=== PATIENT | female | born 1965 | race Caucasian/White ===

== ENCOUNTER 2023-03-02 14:41 | Outpatient (OUT) | payer OTHER, SELFPAY ==
--- NOTE | 2023-03-02 14:53 | XR_ITS ---
The [address] [address] Patient Name: ESSIE STEELE MRN: [id number] date: 1965 Sex: F Assigned Patient Location: [facility] Current Patient Location: [facility] Accession/Order Number: [id number] Exam Date: 03/02/2023 15:05 Report Date: 03/02/2023 15:29 At the request of: KAYY MADRID Procedure: XR chest 2V EXAMINATION: XR chest 2V HISTORY: other chest pain R07.89 COMPARISON: No relevant comparison available. TECHNIQUE: PA and lateral FINDINGS: LUNGS: No significant pulmonary parenchymal abnormalities. VASCULATURE: No increased pulmonary vasculature. PLEURA: No pneumothorax, effusion, or pleural thickening. CARDIAC: No cardiomegaly or cardiac silhouette abnormality. MEDIASTINUM: No visible mass or adenopathy. BONES: No fracture or visible bone lesion. OTHER: Negative. XR/XR chest 2V IMPRESSION: No acute cardiopulmonary process Electronically authenticated by: HELEN MCKEE Date: 03/02/2023 15:29
== END 2023-03-02 14:42 | disposition home or self-care (01) ==
PROVIDERS: PCP Family Medicine; Visit Provider Family Medicine
DX: R07.89 Other chest pain (principal)
CPT/HCPCS: 71046

== ENCOUNTER 2023-03-04 11:01 | Observation (INO) | payer OTHER, SELFPAY ==
[2023-03-04] VITALS (54 sets, daily range): BP systolic 81–146; BP diastolic 58–100; PULSE 73–183; RESP 12–28; TEMP 36.4–37; O2SAT 95–100; BMI 36.3; BMI 32.4
--- NOTE | 2023-03-04 11:19 | ED.SOB1 ---
HPI - SOB/Dyspnea General Chief Complaint: Shortness of Breath/Dyspnea Stated Complaint: SHORTNESS OF BREATH/CHEST PAIN Time Seen by Provider: 03/04/23 11:19 Source: patient Mode of arrival: walk-in Limitations: no limitations History of Present Illness HPI Narrative: this patient's here complaining of shortness of breath. She's not been feeling well for over two weeks. She had an outpatient chest x-ray recently that was normal. She was not seen by the physician at that moment. She said that her breathing is really got bad last two or three nights. She is not running a fever at home that she is aware of but she thought that she had some type of respiratory infection. She has no previous history of irregular heartbeat, heart murmurs coronary artery disease stroke deep vein thrombosis or phlebitis. She was seen immediately on arrival here was noted to be in a rapid atrial fibrillation. She was seen shortly thereafter with laboratory testing and medications ordered by myself. Related Data Allergies Allergy/AdvReac Type Severity Reaction Status Date / Time codeine Allergy Hives Verified 03/04/23 11:03 Exam Narrative Exam Narrative: diaphoretic tachycardic moderately dyspneic. Pulse ox ninety-eight percent. She is in atrial flutter with RVR. She is awake alert cognition and mentation are normal. Skin mildly diaphoretic and clammy. She does have strong pulses. Heart rate and rhythm rhythm are extremely irregular. I do not hear any murmurs. Lungs are completely clear. Extremities show no evidence of phlebitis deep vein thrombosis or edema. Constitutional Vital Signs, click to edit/add: Last Vital Signs Temp 98.6 F 03/04/23 11:04 Pulse 120 H 03/04/23 13:01 Resp 27 H 03/04/23 13:01 BP 99/66 03/04/23 13:01 Pulse Ox 100 03/04/23 13:01 O2 Del Method Room Air 03/04/23 11:04 Course Vital Signs Vital signs: Vital Signs Temperature 98.6 F 03/04/23 11:04 Pulse Rate 118 H 03/04/23 11:04 Respiratory Rate 22 03/04/23 11:04 Blood Pressure 124/100 H 03/04/23 11:04 Pulse Oximetry 98 03/04/23 11:04 Oxygen Delivery Method Room Air 03/04/23 11:04 Temperature 98.6 F 03/04/23 11:04 Pulse Rate 120 H 03/04/23 13:01 Respiratory Rate 27 H 03/04/23 13:01 Blood Pressure 99/66 03/04/23 13:01 Pulse Oximetry 100 03/04/23 13:01 Oxygen Delivery Method Room Air 03/04/23 11:04 MDM - SOB/Dyspnea MDM Narrative Medical decision making narrative: this patient was seen for exacerbation of severe dyspnea. She was found to be in new onset atrial fibrillation with rapid ventricular response. In the differential diagnosis we would like to exclude pulmonary embolism therefore CTA was done. Viral studies have been done. Her chest x-ray did not show any gross abnormalities. She had a wonderful response to Cardizem bolus and his slowed down to a rate of approximately 100-105. Case is discussed with the on-call Dr. Ramirez. Primary care doctor and he will admit her. She will go to ICU. Her oximetry and respirations status is improved and stable. Lab Data Labs: Lab Results 03/04/23 03/04/23 Range/Units 11:15 12:20 WBC 16.8 H (4.0-11.0) 10^3/uL RBC 6.48 H (4.20-5.40) 10^6/uL Hgb 16.2 H (12.0-16.0) g/dL Hct 50.5 H (36.0-48.0) % MCV 77.9 L (81.0-99.0) fL MCH 25.0 L (26.7-34.0) pg MCHC 32.1 (29.9-35.2) g/dL RDW 15.6 H (11.0-15.0) % Plt Count 327 (150-450) 10^3/uL MPV 10.3 (9.5-13.5) fL Seg Neuts % (Manual) 51.0 Band Neutrophils % 2.0 (0-5) % Lymphocytes % (Manual) 37.0 (20.5-60.0) % Atypical Lymphs % (Man) 5.0 % Monocytes % (Manual) 4.0 (1.7-12.0) % Eosinophils % (Manual) 1.0 (0.9-7.0) % Basophils % (Manual) 0.0 L (0.2-2.0) % Neutrophils # (Manual) 8.56 H (1.4-6.5) 10^3/uL Band Neutrophils # 0.3 (0.0-0.3) 10^3/uL Lymphocytes # (Manual) 6.21 H (1.20-3.80) 10^3/uL Abs Atypical Lymphs Man 0.84 Monocytes # (Manual) 0.67 (0.30-0.80) 10^3/uL Eosinophils # (Manual) 0.16 (0.00-0.70) 10^3/uL Basophils # (Manual) 0.00 (0.00-0.10) 10^3/uL PT 10.0 (9.0-11.6) sec INR 0.94 Sodium 137 (136-145) mmol/L Potassium 3.5 (3.5-5.1) mmol/L Chloride 97 L (98-107) mmol/L Carbon Dioxide 27.7 (21.0-32.0) mmol/L Anion Gap 15.8 BUN 13.0 (7.0-18.0) mg/dL Creatinine 0.94 (0.55-1.02) mg/dL Est GFR ( Amer) >60 (>=60) Est GFR (Non-Af Amer) >60 (>=60) BUN/Creatinine Ratio 13.8 Glucose 140 H (74-106) mg/dL Calcium 8.2 L (8.5-10.1) mg/dL Total Bilirubin 0.5 (0.2-1.0) mg/dL AST 24 (15-37) U/L ALT 64 H (14-59) U/L Alkaline Phosphatase 100 (46-116) U/L Troponin I High Sens 14.7 (4.0-51.3) pg/mL NT-Pro-B Natriuret Pep 515.0 (<=900.0) pg/mL Total Protein 7.7 (6.4-8.2) g/dL Albumin 3.1 L (3.4-5.0) g/dL Globulin 4.6 g/dL Albumin/Globulin Ratio 0.7 Influenza Type A Ag Negative Influenza Type B Ag Negative Discharge Plan Discharge Chief Complaint: Shortness of Breath/Dyspnea Clinical Impression: Atrial fibrillation, new onset Patient Disposition: Admitted as Observation Time of Disposition Decision: 13:19 Referrals: Brett Paniagua MD [Primary Care Provider] - 1 week
--- NOTE | 2023-03-04 11:20 | ECG_ITS ---
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
--- NOTE | 2023-03-04 11:20 | XR_ITS ---
The [address] [address] Patient Name: ESSIE STEELE MRN: [id number] date: 1965 Sex: F Assigned Patient Location: ER Current Patient Location: ER Accession/Order Number: [id number] Exam Date: 03/04/2023 11:50 Report Date: 03/04/2023 12:02 At the request of: AUBREY JAIMES Procedure: XR chest 1V EXAMINATION: XR chest 1V, 03/04/2023 11:50 AM EST HISTORY: dyspnea COMPARISON: 03/02/2023 TECHNIQUE: AP portable view of the chest performed. FINDINGS: Medical devices: None. Cardiomediastinal silhouette is within normal limits. The lungs are clear. No large pleural effusion, or pneumothorax. XR/XR chest 1V IMPRESSION: 1. No acute cardiopulmonary abnormality. Electronically authenticated by: MARCIO WEISS Date: 03/04/2023 12:02
--- OUTSIDE RECORDS SUMMARY | 2023-03-04 11:31 | XMS_ITS | CCD ---
Author Name Unknown Address [address] [place] [address] Organization [facility] Care Team Providers Care Manufacturing Maintenance Mechanic Name Role Phone ADA LUNA Referring Unavailable KAYY PANIAGUA Primary Care Unavailable Nader Paniagua Primary Care Provider René Holley Attending Provider René Holley Unavailable MERCY ., DR SULTANA Admitting Unavailable HOY ., DR SULTANA Attending Unavailable HOY ., DR SULTANA Primary Care Unavailable HOY ., DR SULTANA Consulting Unavailable HOY ., DR SULTANA Admitting Unavailable HOY ., DR SULTANA Attending Unavailable HOY ., DR SULTANA Primary Care Unavailable HOY ., DR SULTANA Consulting Unavailable HOY ., DR SULTANA Admitting Unavailable HOY ., DR SULTANA Attending Unavailable HOY ., DR SULTANA Primary Care Unavailable HOY ., DR SULTANA Consulting Unavailable STRAWSER, DWIGHT Consulting Unavailable Philippe Wise Unavailable Allergies Allergy Classification Reported Allergen(s) Allergy Type Date of Onset Reaction(s) Facility (2 sources) Codeine Drug Allergy Unknown [facility] Other (2 sources) Meperidine Drug Allergy Unknown [facility] Other (1 source) Codeine Drug Allergy [facility] (1 source) Meperidine Drug Allergy [facility] Medications Current Medications Medication Drug Class(es) Dates Sig (Normalized) Sig (Original) Acetaminophen (2 sources) Tylenol PRN Acti ve Tylenol Active ciprofloxacin 500 mg oral tablet (1 source) Quinolone Antimicrobial Start: 08-29-2021 take 1 tablet by mouth every twelve hours Cipro 500 MG 1 tablet Orally every 12 hrs for 7 days Aug, Active 24 hr desvenlafaxine succinate 25 mg extended release oral tablet (3 sources) Serotonin and Norepinephrine Reuptake Inhibitor Start: 11-02-2018 take 1 tablet by mouth once daily, then take 1 tablet by mouth every twenty-four hours Desvenlafaxine Succinate (Pristiq) 25 mg Tablet Extended Release 24 Hr Active 25 MG PO Daily November 02, 2018 2:15pm Desvenlafaxine S uccinate ER Active dicyclomine hydrochloride 20 mg oral tablet (2 sources) Anticholinergic Start: 10-07-2022 take 1 tablet by mouth every eight hours Dicyclomine HCl 20 MG 1 tablet Orally Three times a day for 30 days Sep, Active take 1 tablet by mouth twice sharon ly Dicyclomine HCl 20 MG TAKE 1 TABLET BY MOUTH TWICE A DAY Active Excedrin Extra Strength (2 sources) Excedrin Extra S trength PRN Active Excedrin Extra S trength Active fluticasone propionate 0.05 mg/actuat metered dose nasal spray (1 source) Corticosteroid Start: 11-02-2018 Fluticasone Pr opionate (Flonase Allergy Relief) 50 mcg/actuation [place],Suspension Active 1 SPRAY INTRANASAL Daily November 02, 2018 2:15pm loratadine 10 mg oral tablet (3 sources) Start: 11-02-2018 take 1 tablet by mouth once daily Loratadine (Claritin) 10 mg Tablet Active 10 MG PO Daily November 02, 2018 2:15pm Claritin Active 24 hr mesalamine 375 mg extended release oral capsule (1 source) Aminosalicylate Start: 11-03-2018 take 1 capsule by mouth once daily Mesalamine (Apriso) 0.375 gram capsule,extended release 24hr Active 1.5 GM PO Daily 120 November 03, 2018 9:14am pantoprazole 40 mg delayed release oral tablet (2 sources) Proton Pump Inhibitor Start: 05-31-2020 take 1 tablet by mouth every twelve hours Pantoprazole Sodium 40 MG 1 tablet Orally twice a day for 30 days May, Active predniSONE (1 source) predniSONE Activ e topiramate 100 mg oral tablet (2 sources) Start: 11-02-2018 take 1 tablet by mouth once daily Topiramate Active 1 TAB PO Daily November 02, 2018 2:15pm Topiramate Activ e Completed/Discontinued Medications Medication Drug Class(es) Dates Sig (Normalized) Sig (Original) sucralfate 100 mg/ml oral suspension (2 sources) Aluminum Complex take 10 mL by mouth four times daily Carafate 1 GM/10ML 10 ml on an empty stomach Orally qid Not-Taking Problems Active Problems Problem Classification Problem Date Documented Da te Episodic/Chronic Abdominal pain (7 sources) Abdominal pain; Translations: [Unspecified abdominal pain] Onset: 2 Episodic Deficiency and other anemia (1 source) Anemia, unspecified; Translations: [ANEMIA UNSPECIFIED] Onset: 3 Episodic Diabetes mellitus without complication (1 source) Other abnormal glucose; Translations: [OTHER ABNORMAL GLUCOSE] Onset: 3 Episodic Esophageal disorders (8 sources) Gastroesophageal reflux disease; Translations: [Gastro-esophageal reflux disease without esophagitis] Onset: 2 Chronic Essential hypertension (4 sources) Essential (primary) hypertension; Translations: [ESSENTIAL PRIMARY HYPERTENSION] Onset: 3 Chronic Gastritis and duodenitis (2 sources) Atrophic gastritis; Translations: [Unspecified chronic gastritis without bleeding] Chronic Gastrointestinal hemorrhage (2 sources) Rectal hemorrhage; Translations: [Hemorrhage of anus and rectum] Episodic Hemorrhoids (2 sources) Hemorrhoids; Translations: [Unspecified hemorrhoids] Episodic Noninfectious gastroenteritis (2 sources) Ileitis; Translations: [Noninfective gastroenteritis and colitis, unspecified] Episodic Nutritional deficiencies (1 source) Vitamin D deficiency, unspecified; Translations: [VITAMIN D DEFICIENCY UNSPECIFIED] Onset: 3 Chronic Other gastrointestinal disorders (1 source) Irritable bowel syndrome with diarrhea; Translations: [Irritable bowel syndrome with diarrhea] Chronic Other gastrointestinal disorders (1 source) Irritable bowel syndrome with diarrhea Chronic Other gastrointestinal disorders (2 sources) Abnormal feces; Translations: [Other fecal abnormalities] Episodic Other gastrointestinal disorders (2 sources) Diarrhea; Translations: [Diarrhea, unspecified] Episodic Other nutritional; endocrine; and metabolic disorders (1 source) Overweight; Translations: [Overweight] Onset: 9 Chronic Regional enteritis and ulcerative colitis (6 sources) Crohn's disease of terminal ileum; Translations: [Crohn's disease of small intestine without complications] Onset: 2 Resolved: 2 Chronic Past or Other Problems Problem Classification Problem Date Documented Da te Episodic/Chronic Intestinal infection (1 source) Viral intestinal infection, unspecified Onset: 08-29-2021 Resolved: 08-29-2021 Episodic Other nutritional; endocrine; and metabolic disorders (1 source) Abnormal weight loss; Translations: [ABNORMAL WEIGHT LOSS] Onset: 08-23-2021 Episodic Results Test Name Value Interpretation Reference Range Facility INSULINon 06-13-2022 Insulin 8.5 uIU/mL Normal 2.6-24.9 [facility] Comment on above: Performed By: #### I NSULIN #### [facility] [address] [place] [address] Dr. Delonte Sparrow AMMONIAon 06-12-2022 Ammonia (P) [Moles/Vol] 33 umol/L Critically high 11-32 [facility] Comment on above: Performed By: #### A MM #### [facility] [address] [place] [address] Dr. Delonte Sparrow AMYLASEon 06-12-2022 Amylase [Catalytic activity/Vol] 47 U/L Normal 25-115 [facility] Comment on above: Performed By: #### L IPA, CMP, NONI #### [facility] [address] [place] [address] Dr. Delonte Sparrow CBC AUTO DIFFon 06-12-2022 BASO # 0.0 103/ul Normal 0.0-0.1 [facility] Comment on above: Performed By: #### C BC #### [facility] [address] [place] [address] Dr. Delonte Sparrow Basophils/100 WBC (Bld) 0.7 % Normal 0.2-2.0 [facility] Comment on above: Performed By: #### C BC #### [facility] [address] [place] [address] Dr. Delonte Sparrow EO # 0.3 103/ul Normal 0.0-0.7 [facility] Comment on above: Performed By: #### C BC #### [facility] [address] [place] [address] Dr. Delonte Sparrow Eosinophils/100 WBC (Bld) 4.3 % Normal 0.9-7.0 [facility] Comment on above: Performed By: #### C BC #### [facility] [address] [place] [address] Dr. Delonte Sparrow Erythrocyte distribution width (RBC) [Ratio] 15.0 % Normal 11.0-15.0 [facility] Comment on above: Performed By: #### C BC #### [facility] [address] [place] [address] Dr. Delonte Sparrow Hematocrit (Bld) [Volume fraction] 38.8 % Normal 36.0-48.0 [facility] Comment on above: Performed By: #### C BC #### [facility] [address] [place] [address] Dr. Delonte Sparrow Hemoglobin (Bld) [Mass/Vol] 12.0 g/dL Normal 12.0-16.0 [facility] Comment on above: Performed By: #### C BC #### [facility] [address] [place] [address] Dr. Delonte Sparrow IG # 0.03 10e3/ul Normal 0.00-0.03 [facility] Comment on above: Performed By: #### C BC #### [facility] [address] [place] [address] Dr. Delonte Sparrow IG % 0.5 % Normal 0.0-0.5 [facility] Comment on above: Performed By: #### C BC #### [facility] [address] [place] [address] Dr. Delonte Sparrow LYMPH # 1.7 103/ul Normal 1.2-3.8 [facility] Comment on above: Performed By: #### C BC #### [facility] [address] [place] [address] Dr. Delonte Sparrow Lymphocytes/100 WBC (Bld) 27.3 % Normal 20.5-60.0 [facility] Comment on above: Performed By: #### C BC #### [facility] [address] [place] [address] Dr. Delonte Sparrow MANUAL DIFF REQ NO Normal [facility] Comment on above: Performed By: #### C BC #### [facility] [address] [place] [address] Dr. Delonte Sparrwo MCH (RBC) [Entitic mass] 24.1 pg Critically low 26.7-34.0 [facility] Comment on above: Performed By: #### C BC #### [facility] [address] [place] [address] Dr. Delonte Sparrow MCHC (RBC) [Mass/Vol] 30.9 g/dL Normal 29.9-35.2 [facility] Comment on above: Performed By: #### C BC #### [facility] [address] [place] [address] Dr. Delonte Sparrow MCV (RBC) [Entitic vol] 78.1 fL Critically low 81.0-99.0 [facility] Comment on above: Performed By: #### C BC #### [facility] [address] [place] [address] Dr. Delonte Sparrow MONO # 0.4 103/ul Normal 0.3-0.8 [facility] Comment on above: Performed By: #### C BC #### [facility] [address] [place] [address] Dr. Delonte Sparrow Monocytes/100 WBC (Bld) 6.4 % Normal 1.7-12.0 [facility] Comment on above: Performed By: #### C BC #### [facility] [address] [place] [address] Dr. Delonte Sparrow NEUT # 3.7 103/ul Normal 1.4-6.5 [facility] Comment on above: Performed By: #### C BC #### [facility] [address] [place] [address] Dr. Delonte Sparrow Neutrophils/100 WBC (Bld) 60.8 % Normal 43.0-75.0 [facility] Comment on above: Performed By: #### C BC #### [facility] [address] [place] [address] Dr. Delonte Sparrow Platelet mean volume (Bld) [Entitic vol] 9.7 fL Normal 9.5-13.5 [facility] Comment on above: Performed By: #### C BC #### [facility] [address] [address] [address] Delonte Sparrow PLT 263 103/ul Normal 150-450 [facility] Comment on above: Performed By: #### C BC #### [facility] [address] [address] [address] Delonte Sparrow RBC 4.97 106/ul Normal 4.20-5.40 [facility] Comment on above: Performed By: #### C BC #### [facility] [address] [address] [address] Delonte Sparrow WBC 6.1 103/ul Normal 4.0-11.0 [facility] Comment on above: Performed By: #### C BC #### [facility] [address] [place] [address] Dr. Delonte Sparrow FREE THYROXINE INDEX T7on FTI 2.61 Normal 1.30-4.50 [facility] Comment on above: Performed By: #### L IPA, CMP, NONI #### [facility] [address] [place] [address] Dr. Delonte Sparrow T3U 33.0 % Normal 30.0-39.0 [facility] Comment on above: Performed By: #### L IPA, CMP, NONI #### [facility] [address] [place] [address] Dr. Delonte Sparrow T4 [Mass/Vol] 7.90 ug/dL Normal 4.80-13.90 [facility] Comment on above: Performed By: #### L IPA, CMP, NONI #### [facility] [address] [place] [address] Dr. Delonte Sparrow GLYCOHEMOGLOBIN A1Con 2022 ADA RECOMMENDATION SEE BELOW Normal [facility] Comment on above: Result Comment: ADA RECOMMENDED LIMIT 4.0 - 6.0 ADA THERAPEUTIC TARGET < 7.0 ACTION SUGGESTED > 7.0 Performed By: #### A 1C #### [facility] [address] [place] [address] Dr. Delonte Sparrow Glucose [Mass/Vol] 105 mg/dL Normal [facility] Comment on above: Performed By: #### A 1C #### [facility] [address] [place] [address] Dr. Delonte Sparrow HbA1c (Bld) [Mass fraction] 5.3 % Normal 4.5-6.2 [facility] Comment on above: Performed By: #### A 1C #### [facility] [address] [place] [address] Dr. Delonte Sparrow IRONon 06-12-2022 Iron [Mass/Vol] 35.0 ug/dL Critically low 50.0-170.0 [facility] Comment on above: Performed By: #### L ADELE OCONNELL, NONI #### [facility] [address] [place] [address] Dr. Delonte Sparrow LIPASEon 06-12-2022 Lipase [Catalytic activity/Vol] 130.0 U/L Normal 73.0-393.0 [facility] Comment on above: Performed By: #### L KOURTNEY CMP, NONI #### [facility] [address] [place] [address] Dr. Delonte Sparrow TSHon 06-12-2022 TSH 1.741 uIU/mL Normal 0.358-3.740 [facility] Comment on above: Performed By: #### L IPA CMP, NONI #### [facility] [address] [place] [address] Dr. Delonte Sparrow VITAMIN D 25 OHon 06-12-2022 VIT D 25-OH 20.9 ng/mL Normal [facility] Comment on above: Performed By: #### I AMANDA VITAD #### [facility] [address] [place] [address] Dr. Delonte Sparrow VIT D RANGES SEE BELOW Normal [facility] Comment on above: Result Comment: <20 ng/mL Vit D deficient 20 - <30 ng/mL Vit D insufficient 30 - 100 ng/mL Vit D sufficient >100 ng/mL Potential Toxicity Performed By: #### I AMANDA VITAD #### [facility] [address] [place] [address] Dr. Delonte Sparrow AMYLASEon 08-21-2021 Amylase [Catalytic activity/Vol] 26 U/L Normal 25-115 [facility] Comment on above: Performed By: #### L IPA, CMP, NONI #### [facility] [address] [place] [address] Dr. Delonte Sparrow CBC W MANUAL DIFFon 08-22-19 22 ATYPICAL LYMPH # Normal [facility] Comment on above: Performed By: #### C BCMAN #### [facility] [address] [place] [address] Dr. Delonte Sparrow ATYPICAL LYMPH % Normal [facility] Comment on above: Performed By: #### C BCMAN #### [facility] [address] [place] [address] Dr. Delonte Sparrow BAND # Normal 0.0-0.3 [facility] Comment on above: Performed By: #### C BRITT #### [facility] [address] [place] [address] Dr. Delonte Sparrow BAND % Normal 0-5 [facility] Comment on above: Performed By: #### C BCSEA #### [facility] [address] [place] [address] Dr. Delonte Sparrow BASOM # 0.00 103/ul Normal 0.00-0.10 [facility] Comment on above: Performed By: #### C BCSEA #### [facility] [address] [place] [address] Dr. Delonte Sparrow BASOM % 0.0 % Critically low 0.2-2.0 [facility] Comment on above: Performed By: #### C BCSEA #### [facility] [address] [place] [address] Dr. Delonte Sparrow BLAST # Normal [facility] Comment on above: Performed By: #### C BCMAN #### [facility] [address] [place] [address] Dr. Delonte Sparrow BLAST % Normal [facility] Comment on above: Performed By: #### C BCSEA #### [facility] [address] [place] [address] Dr. Delonte Sparrow CORRECTED WBC Normal 4.0-11.0 [facility] Comment on above: Performed By: #### C BCMAN #### [facility] [address] [address] [address] Delonte Sparrow EOS # 15.45 103/ul Critically high 0.00-0.70 [facility] Comment on above: Performed By: #### C BCSEA #### [facility] [address] [address] [address] Delonte Sparrow EOS% 57.0 % Critically high 0.9-7.[address] [facility] Comment on above: Performed By: #### C BCSEA #### [facility] [address] [address] [address] Delonte Sparrow HCT 45.1 % Normal 36.0-48.0 [facility] Comment on above: Performed By: #### C BCSEA #### [facility] [address] [address] [address] Delonte Sparrow HGB 13.9 g/dl Normal 12.0-16.0 [facility] Comment on above: Performed By: #### C BRITT #### [facility] [address] [address] [address] Delonte Sparrow LYMPHM # 2.98 103/ul Normal 1.20-3.80 [facility] Comment on above: Performed By: #### C BRITT #### [facility] [address] [address] [address] Delonte Sparrow LYMPHM% 11.0 % Critically low 20.5-60.0 [facility] Comment on above: Performed By: #### C BCSEA #### [facility] [address] [address] [address] Delonte Sparrow MCH 23.3 pg Critically low 26.7-34.0 [facility] Comment on above: Performed By: #### C BCSEA #### [facility] [address] [address] [address] Delonte Sparrow MCHC 30.8 g/dl Normal 29.9-35.2 [facility] Comment on above: Performed By: #### C BRITT #### [facility] [address] [address] [address] Delonte Sparrow MCV 75.5 fL Critically low 81.0-99.0 [facility] Comment on above: Performed By: #### C BRITT #### [facility] [address] [place] [address] Dr. Delonte Sparrow METAMYELOCYTE # Normal [facility] Comment on above: Performed By: #### C BRITT #### [facility] [address] [place] [address] Dr. Delonte Sparrow METAMYELOCYTE % Normal [facility] Comment on above: Performed By: #### C BRITT #### [facility] [address] [place] [address] Dr. Delonte Sparrow MONOM# 1.63 103/ul Critically high 0.30-0.80 [facility] Comment on above: Performed By: #### C BRITT #### [facility] [address] [place] [address] Dr. Delonte Sparrow MONOM% 6.0 % Normal 1.7-12.0 [facility] Comment on above: Performed By: #### C BRITT #### [facility] [address] [place] [address] Dr. Delonte Sparrow MPV 9.9 fL Normal 9.5-13.5 [facility] Comment on above: Performed By: #### C BRITT #### [facility] [address] [place] [address] Dr. Delonte Sparrow MYELOCYTE # Normal [facility] Comment on above: Performed By: #### C BRITT #### [facility] [address] [place] [address] Dr. Delonte Sparrow MYELOCYTE % Normal [facility] Comment on above: Performed By: #### C BRITT #### [facility] [address] [place] [address] Dr. Delonte Sparrow NRBC Normal [facility] Comment on above: Performed By: #### C BRITT #### [facility] [address] [place] [address] Dr. Delonte Sparrow PLT 343 103/ul Normal 150-450 [facility] Comment on above: Performed By: #### Pravin DE LA TORRE #### [facility] [address] [address] [address] Delonte Sparrow RBC 5.97 106/ul Critically high 4.20-5.40 [facility] Comment on above: Performed By: #### Pravin DE LA TORRE #### [facility] [address] [address] [address] Delonte Sparrow RDW 16.9 % Critically high 11.0-15.[address] [facility] Comment on above: Performed By: #### Pravin DE LA TORRE #### [facility] [address] [place] [address] Dr. Delonte Sparrow SEG # 7.05 103/ul Critically high 1.40-6.50 [facility] Comment on above: Performed By: #### Pravin DE LA TORRE #### [facility] [address] [place] [address] Dr. Delonte Sparrow SEG % 26.0 % Critically low 43.0-75.0 [facility] Comment on above: Performed By: #### Pravin DE LA TORRE #### [facility] [address] [place] [address] Dr. Delonte Sparrow WBC 27.1 103/ul Critically high 4.0-11.0 [facility] Comment on above: Performed By: #### Pravin DE LA TORRE #### [facility] [address] [place] [address] ABD/PELV W CONon 08-22-[address] ABD/PELV W CON CT ABDOMEN AND PELVIS WITH CONTRAST: INDICATION: Weight loss finding. Upper abdominal pain, pelvic pain. History of Crohn's disease. COMPARISON: 05/02/2020. TECHNIQUE:Multiple thin section transaxial slices were acquired through the abdomen and pelvis with intravenous contrast. Coronal and sagittal reconstructed images were reviewed. Oral contrastwas administered. FINDINGS: LOWER CHEST: There are small bilateral pleural effusions. There is atelectasis in the right lower lobe and lingula. LIVER: The liver is unremarkable. GALLBLADDER AND BILIARY SYSTEM: No obvious ductal dilation. No calcified stones. SPLEEN: The spleen is unremarkable. PANCREAS: The pancreas is unremarkable. ADRENAL GLANDS: The adrenal glands are unremarkable. KIDNEYS AND URETERS: There is no hydronephrosis of the kidneys.No obstructing urologic calcifications are present. There are bilateral renal cysts measuring up to 1.1 cm. VASCULATURE: There is no aneurysm of the abdominal aorta. PERITONEUM/RETROPERI TONEUM: There is mild to moderate ascites. No free intraperitoneal air is appreciated. No rim-enhancing fluid collections are present to suggest abscess. LYMPH NODES: No suspicious lymphadenopathy. GASTROINTESTINAL TRACT: There is irregular wall thickening of multiple small bowel loops throughout the abdomen and pelvis involving both jejunum and ileal bowel loops. Wall thickening and inflammatory changes are also present in the cecum. There is diffuse circumferential inflammation of the distal stomach including the antrum and pylorus.The colonic bowel loops do not demonstrate significant wall thickening. While there is mild dilation of the small bowel loops, this could be due to ileus from the underlying inflammatory changes.There is fluid surrounding the appendix which is felt to be translational from edema elsewhere. The appendix is normal in size. BLADDER: There is perivesicular fat stranding of the urinary bladder wall concerning for cystitis. REPRODUCTIVE SYSTEM: The uterus is absent. BODY WALL: There is a small fat-containing umbilical hernia. There is a well-circumscribed round fluid collection in the subcutaneous fat to the right of the midline of the posterior torso measuring 2.2 cm. Imaging features are most typical of a sebaceous cyst. BONES: Degenerative disc disease is present at the lumbosacral junction. IMPRESSION: 1. Extensive inflammatory changes associated with the small bowel loops, cecum and distal stomach consistent with severe enteritis/gastritis likely secondary to the patient's reported clinical history of Crohn's disease. 2. Mild to moderate ascites and small bilateral pleural effusions. 3. Inflammatory changes are associated with the urinary bladder which may represent cystitis. Electronically authenticated by: DWIGHT TOBAR Date: 2021-08-21 16:48 Normal [facility] LIPASEon 08-21-2021 Lipase [Catalytic activity/Vol] 58.0 U/L Critically low 73.0-393.0 [facility] Comment on above: Performed By: #### L IPA, CMP, NONI #### [facility] [address] [place] [address] Dr. Delonte Sparrow PROF 14(COMP METB)on 022 Albumin [Mass/Vol] 3.6 g/dL Normal 3.4-5.0 [facility] Comment on above: Performed By: #### L IPA, CMP, NONI #### [facility] [address] [address] [address] Delonte Sparrow Albumin/Globulin [Mass ratio] 1.0 {ratio} Normal [facility] Comment on above: Performed By: #### L IPA, CMP, NONI #### [facility] [address] [address] [address] Delonte Sparrow ALP [Catalytic activity/Vol] 125 U/L Critically high 46-116 [facility] Comment on above: Performed By: #### L IPA, CMP, NONI #### [facility] [address] [address] [address] Delonte Sparrow ALT [Catalytic activity/Vol] 27 U/L Normal 14-59 [facility] Comment on above: Performed By: #### L IPA, CMP, NONI #### [facility] [address] [address] [address] Delonte Sparrow Anion gap [Moles/Vol] 12.7 mmol/L Normal [facility] Comment on above: Performed By: #### L IPA, CMP, NONI #### [facility] [address] [address] [address] Delonte Sparrow AST [Catalytic activity/Vol] 15 U/L Normal 15-37 [facility] Comment on above: Performed By: #### L IPA, CMP, NONI #### [facility] [address] [address] [address] Delonte Sparrow Bilirubin [Mass/Vol] 0.3 mg/dL Normal 0.2-1.0 [facility] Comment on above: Performed By: #### L IPA, CMP, NONI #### [facility] [address] [address] [address] Delonte Sparrow Calcium [Mass/Vol] 8.2 mg/dL Critically low 8.5-10.1 [facility] Comment on above: Performed By: #### L IPA, CMP, NONI #### [facility] [address] [address] [address] Delonte Sparrow Chloride [Moles/Vol] 103 mmol/L Normal 98-107 [facility] Comment on above: Performed By: #### L IPA, CMP, NONI #### [facility] [address] [address] [address] Delonte Sparrow CO2 [Moles/Vol] 29.2 mmol/L Normal 21.0-32.0 [facility] Comment on above: Performed By: #### L IPA, CMP, NONI #### [facility] [address] [address] [address] Delonte Sparrow Creatinine [Mass/Vol] 0.81 mg/dL Normal 0.55-1.02 [facility] Comment on above: Performed By: #### L IPA, CMP, NONI #### [facility] [address] [place] [address] Dr. Delonte Sparrow EGFR-AF ETHIOPIAN >60 Normal >=60 [facility] Comment on above: Performed By: #### L IPA, CMP, NONI #### [facility] [address] [place] [address] Dr. Delonte Sparrow EGFR-NON AF ETHIOPIAN >60 Normal >=60 [facility] Comment on above: Performed By: #### L IPA, CMP, NONI #### [facility] [address] [place] [address] Dr. Delonte Sparrow Globulin (S) [Mass/Vol] 3.7 g/dL Normal [facility] Comment on above: Performed By: #### L IPA, CMP, NONI #### [facility] [address] [address] [address] Delonte Sparrow Glucose [Mass/Vol] 103 mg/dL Normal 74-106 [facility] Comment on above: Performed By: #### L IPA, CMP, NONI #### [facility] [address] [address] [address] Delonte Sparrow Potassium [Moles/Vol] 3.9 mmol/L Normal 3.5-5.1 [facility] Comment on above: Performed By: #### L IPA, CMP, NONI #### [facility] [address] [address] [address] Delonte Sparrow Protein [Mass/Vol] 7.3 g/dL Normal 6.4-8.2 [facility] Comment on above: Performed By: #### L IPA, CMP, NONI #### [facility] [address] [address] [address] Delonte Sparrow Sodium [Moles/Vol] 141 mmol/L Normal 136-145 [facility] Comment on above: Performed By: #### L IPA, CMP, NONI #### [facility] [address] [place] [address] Dr. Delonte Sparrow Urea nitrogen [Mass/Vol] 16.0 mg/dL Normal 7.0-18.0 [facility] Comment on above: Performed By: #### L IPA, CMP, NONI #### [facility] [address] [address] [address] Delonte Sparrow Urea nitrogen/Creatinine [Mass ratio] 19.8 mg/mg Normal [facility] Comment on above: Performed By: #### L IPA, CMP, NONI #### [facility] [address] [place] [address] Dr. Delonte Awan 06-22-2020 L Specimen: [id number] Received: 06/22/20 Status: DB Black Num: [id number] Spec Type: Surgical Subm Dr: René Holley Jr, DO Tissues: A Small Intestine - Biopsy/Polyp (TERMINAL ILEUM) B Colon - Polyp (RECTOSIGMOID POLYP) Procedures: HE Stain/4, Gross/Micro L4/2 Patient Age/Sex Location Account Attending Physician Malu Steele 55/F [id number] René Holley Jr, DO SPEC NUM: [id number] RECD: 06/22/209 STATUS: DB HERLINDA NUM: [id number] GAVINO: 06/22/20-1247 [facility] DR: René Holley Jr, DO ENTERED: 06/22/204688 [facility] DR: SONYA TYPE: Surgical DEPT: S ORDERED: HE Stain/4, Gross/Micro L4/2 ORDERED: HE Stain/4, Gross/Micro L4/2 Pathological Diagnosis A. Terminal ileum, biopsy: - Superficial ileal mucosa with no significant pathologic findings. B. Rectosigmoid polyp, polypectomy: - Tubular adenoma. Clinical Information GERD, Crohn's Gross Description A. Received in formalin labeled with the patient's name, number and terminal ileum history of Crohn's is a 0.5 cm martin tissue fragment. Entirely submitted in one cassette labeled A1. (YARELI/YJ) B. Received in formalin labeled with the patient's name, number and rectosigmoid polyp is a 1 cm martin, granular, slightly lobulated and sessile mucosal polyp. The presumed resection margin is inked blue and the fragment is trisected. Entirely submitted in one cassette labeled B1. (/YJ) Specimen: [id number] Received: 06/22/20 Status: DB Black Num: [id number] Spec Type: Surgical Subm Dr: René Holley Jr, DO Tissues: A Small Intestine - Biopsy/Polyp (TERMINAL ILEUM) B Colon - Polyp (RECTOSIGMOID POLYP) Procedures: HE Stain/4, Gross/Micro L4/2 Patient: Malu Steele [id number] (Continued) Specimen: [id number] Received: 06/22/20 (Continued) Signed (signature on file) Iveth Patel MD 06/25/20 1528 Specimen: [id number] Received: 06/22/20 Status: DB Black Num: [id number] Spec Type: Surgical Subm Dr: René Holley Jr, DO Tissues: A Small Intestine - Biopsy/Polyp (TERMINAL ILEUM) B Colon - Polyp (RECTOSIGMOID POLYP) Procedures: HE Stain/4, Gross/Micro L4/2 Patient: Malu Steele Christen [id number] (Continued) Specimen: [id number] Received: 06/22/20 (Continued) Microscopic Description A. Two glass slides with H E stained material have been examined. The microscopic findings support the above pathologic diagnosis. B. Two glass slides with H E stained material have been examined. The microscopic findings support the above pathologic diagnosis. CPT Codes 83299?2 Specimen: [id number] Received: 06/22/20 Status: DB Black Num: [id number] Spec Type: Surgical Subm Dr: René Holley Jr, DO Tissues: A Small Intestine - Biopsy/Polyp (TERMINAL ILEUM) B Colon - Polyp (RECTOSIGMOID POLYP) Procedures: HE Stain/4, Gross/Micro L4/2 Patient: Malu Steele [id number] (Continued) Signed (signature on file) Iveth Patel MD 06/25/20 1528 Normal [facility] COVID[facility]19 [facility] SARS-CoV-2 (COVID-19) RNA WES+probe Ql (Unsp spec) Negative Normal Negative [facility] Comment on above: Order Comment: Healt hcare Worker?: N Result Comment: Test ing for SARS-CoV-2 by RT-PCR This test was developed and its performance characteristics determined by [employer] ([place]) and validated at the [facility]. This test has not been FDA cleared or approved. This test has been authorized by FDA under an Emergency Use Authorization (EUA). This test has been validated in accordance with the FDA's Guidance Document (Policy for Diagnostics Testing in Laboratories Certified to Perform High Complexity Testing under CLIA prior to Emergency Use Authorization for Coronavirus Disease-2019 during the Public Health Emergency) issued on May 26, 2019. This test is only authorized for the duration of time the declaration that circumstances exist justifying the authorization of the emergency use of in vitro diagnostic tests for detection of SARS-CoV-2 virus and/or diagnosis of COVID-19 infection under section 564(b)(1) of the Act, 21 U.S.C. 360bbb-3(b)(1), unless the authorization is terminated or revoked sooner. PERFORMED BY: [place] [address] PATHOLOGIST [employer] NIALL MILAN M.D. Performed By: #### C OVID-19 [facility] #### [address] COVID-19 Positive/Negativeon 06-20-2020 SARS-CoV-2 (COVID-19) N gene WES+probe Ql (Resp) Negative Negative [facility] Comment on above: Testing for SARS-CoV -2 by RT-PCRThis test was developed and its performance characteristics determined by [employer] ([employer]) and validated at the [facility]. This test has not been FDA cleared or approved. This test has been authorized by FDA under an Emergency Use Authorization (EUA). This test has been validated in accordance with the FDA's Guidance Document (Policy for Diagnostics Testing in Laboratories Certified to Perform High Complexity Testing under CLIA prior to Emergency Use Authorization for Coronavirus Disease-2019 during the Public Health Emergency) issued on May 26, 2019. This test is only authorized for the duration of time the declaration that circumstances exist justifying the authorization of the emergency use of in vitro diagnostic tests for detection of SARS-CoV-2 virus and/or diagnosis of COVID-19 infection under section 564(b)(1) of the Act, 21 U.S.C. 360bbb-3(b)(1), unless the authorization is terminated or revoked sooner. 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 - Endocervical/transfo rmation zone component present. - Scant cellularity, predominantly inflammatory exudate. Descriptive Diagnosis: Negative for intraepithelial lesion or malignancy. Shift in bruce suggestive of bacterial vaginosis. [employer] Installer: HARJIT Valera(ASCP) Electronically Signed Out bessie/04/23/2018 Normal [facility] Comment on above: Performed By: #### P PPVP #### [facility] [employer] [address] [place] [address] [id number] Care Nurse Rn: Karthik Lynn MD Vital Signs Date Time Vital Sign Value Performing Clinician Facility 10-07-2022 09:30-0400 Body height 170.18 cm Philippe Wise Other [facility] Other 10-07-2022 09:30-0400 Body mass index (BMI) [Ratio] 34.45 kg/m2 Philippe Wise Other [facility] Other 10-07-2022 09:30-0400 Body weight 99.79 kg Philippe Esterrosalie Other [facility] Other 10-07-2022 09:30-0400 Diastolic blood pressure 83 mm[Hg] Philippe Esterrosalie Other [facility] Other 10-07-2022 09:30-0400 Systolic blood pressure 139 mm[Hg] Philippe Wise Other [facility] Other 08-29-2021 12:00-0400 Body height 170.18 cm René Holley Other [facility] Other 08-29-2021 12:00-0400 Body mass index (BMI) [Ratio] 35.55 kg/m2 René Holley Other [facility] Other 08-29-2021 12:00-0400 Body weight 102.97 kg René Holley Other [facility] Other 08-29-2021 12:00-0400 Diastolic blood pressure 89 mm[Hg] René Holley Other [facility] Other 08-29-2021 12:00-0400 Systolic blood pressure 142 mm[Hg] René Holley Other [facility] Other Encounters Encounter Date Encounter Type Care Provider Facility Start: 10-07-2022 End: 10-07-2022 ambulatory Philippe Wise Other [facility] Other Start: 10-07-2022 Patient encounter procedure Philippe Wise [facility] Start: 07-07-[address] KAYY PANIAGUA . Facili ty:[facility] Start: 06-12-2022 End: 06-13-[address] KAYY PANIAGUA . Facility:[facility] Start: 08-29-2021 End: 08-29-2021 ambulatory René Holley Other [facility] Other Start: 08-29-2021 Office outpatient vi sit 25 minutes René Holley [facility] Start: 08-21-2021 End: 08-22-[address] KAYY PANIAGUA . Facility:[facility] Start: 06-20-2020 End: 06-20-2020 Patient encounter procedure Nader Kayy Paniagua Work Phone: -Pre-Surgical Testing Start: 04-12-2018 Encounter for gynecological examination (general) (routine) without abnormal findings [facility] Start: 04-12-2018 End: 04-13-2018 Patient encounter procedure [facility] Procedures Date Procedure Procedure Detail Performing Clinician Start: 04-12-2018 Screen pap by gisela cleveland md supv [facility] Payers Date Payer Category Payer Unknown [id number] 1965 Unknown [id number] 1965 Unknown [id number] 1965 Unknown [id number] 1958 Private Health Insurance [id number] Self-pay [employer] [id number] Unknown [employer] [id number] Social History Date Type Detail Facility Start: 11-03-2018 Tobacco smoking status NHIS Ex-smoker (finding) [facility] Start: 1965 Sex Assigned At Female F [facility] Sex Assigned At Sex Assigned At Bir th [facility] Other Goals Date Patient Goal Desired Activity /State Evaluation note 10-07-2022 Note Date & Type Note Facility 10-07-2022 Evaluation note Encounter Date Diagnosis Assessment Notes Sep, GERD without esophagitis (ICD-10 - K21.9) Sep, Irritable bowel syndrome with diarrhea (ICD-10 - K58.0) Sep, Other Patient still having diarrhea and cramping in the lower abd area. Patient reports having these episodes at least one time weekly. Patient can restart dicyclomine 20mg TID PRN. [facility] Other Evaluation note 08-29-2021 Note Date & Type Note Facility 08-29-2021 Evaluation note Encounter Date Diagnosis Assessment Notes Aug, Crohns disease (ICD-10 - K50.90) Aug, Viral gastroenteritis (ICD-10 - A08.4) Continue prednisone as prescribed by PCP Start Cipro 500mg bid for 7 days Patient to call when she finished prednisone and cipro if symptoms do not improve. Follow up in 4 weeks. [facility] Other History general Narrative - Reported 07-24-2020 Note Date & Type Note Facility 07-24-2020 History general N arrative - Reported Type Medical History Crohns disease Surgical History C section X2 Surgical History hysterectomy 07/2020 [facility] [email or web address] Other Evaluation note Note Date & Type Note Facility Evaluation note No Assessments Information Avail able [facility] Summary Purpose Family History Relationship Condition Age at Onset Recorded Date/T liza father Malignant neoplasm Unknown Not Specified Chronic obstructive pulmonary disease Un known sister Malignant neoplasm of tongue Unknown Advance Directives Advance Directive Response Recorded Date/ Time Advance Directives No October 9:45am Chief Complaint and Reason for Visit Chief Complaint Gerd, Crohn's Diseas e Additional Source Comments INFORMATION SOURCE (unrecogn ized section and content) DATE CREATED AUTHOR 04/25/2018 Emy everett DATE CREATED AUTHOR AUTHOR'S ORGANIZ ATION 04/04/2021 [facility] DATE CREATED AUTHOR AUTHOR'S ORGANIZ ATION 07/07/2022 [facility] REASON FOR VISIT (unrecogniz ed section and content) [place], Pt is current ly on prednisone taperFORMER DR HOLLEY PATIENT HERE FOR GASTRITIS SYMPTOMS. ALSO HAS CROHNS DISEASE FOR RECORDS PERTAINING TO PATIENTS WHO ARE OR HAVE BEEN ENROLLED IN A CHEMICAL DEPENDENCY/SUBSTANCEABUSE PROGRAM, SOME INFORMATION MAY BE OMITTED. This clinical summary was aggregated from multiple sources. Caution should be exercised in using it in the provision of clinical care. This summary normalizes information from multiple sources, and as a consequence, information in this document may materially change the coding, format and clinical context of patient data. In addition, data may be omitted in some cases. CLINICAL DECISIONS SHOULD BE BASED ON THE PRIMARY CLINICAL RECORDS. [facility] provides no warranty or guarantee of the accuracy or completeness of information in this document.
[2023-03-04] MEDS: DILTIAZEM HCL 25 MG/5 ML VIAL 20 MG IV (11:32)
[2023-03-04 11:36] LABS: Hematocrit 50.5 % (36.0-48.0); Hemoglobin 16.2 g/dL (12.0-16.0); Mean Corpuscular HGB Conc 32.1 g/dL (29.9-35.2); Mean Corpuscular Volume 77.9 fL (81.0-99.0); Mean Platelet Volume 10.3 fL (9.5-13.5); Platelet Count 327 10^3/uL (150-450); Red Blood Count 6.48 10^6/uL (4.20-5.40); Red Cell Distribution Width 15.6 % (11.0-15.0); White Blood Count 16.8 10^3/uL (4.0-11.0)
[2023-03-04] MEDS: dilTIAZem HCL 125 MG in 0.9 % SODIUM CHLORIDE 100 ML IV (11:42)
[2023-03-04 11:50] LABS: Alanine Aminotransferase 64 U/L (14-59); Albumin Globulin Ratio 0.7; Albumin Level 3.1 g/dL (3.4-5.0); Alkaline Phosphatase 100 U/L (46-116); Anion Gap 15.8; Aspartate Amino Transferase 24 U/L (15-37); BUN Creatinine Ratio 13.8; Bilirubin Total 0.5 mg/dL (0.2-1.0); Calcium 8.2 mg/dL (8.5-10.1); Carbon Dioxide 27.7 mmol/L (21.0-32.0); Chloride 97 mmol/L (98-107); Estimated GFR (African America >60 (>=60); Estimated GFR (Non-African Ame >60 (>=60); Globulin 4.6 g/dL; Glucose 140 mg/dL (74-106); Potassium 3.5 mmol/L (3.5-5.1); Sodium 137 mmol/L (136-145); Total Protein 7.7 g/dL (6.4-8.2); Troponin I High Sensitivity 14.7 pg/mL (4.0-51.3)
[2023-03-04 11:55] LABS: Band Neutrophils Absolute 0.3 10^3/uL (0.0-0.3); Lymphocytes Absolute Manual 6.21 10^3/uL (1.20-3.80); Monocytes Absolute Manual 0.67 10^3/uL (0.30-0.80); Segmented Neut Absolute Manual 8.56 10^3/uL (1.4-6.5)
[2023-03-04 11:56] LABS: Atypical Lymphocytes Abs Man 0.84; Eosinophils Absolute Manual 0.16 10^3/uL (0.00-0.70); INR 0.94
[2023-03-04] MEDS: ENOXAPARIN SODIUM 100 MG/ML SYRINGE SUBQ (12:25)
--- NOTE | 2023-03-04 12:29 | CT_ITS ---
The [address] [address] Patient Name: ESSIE STEELE MRN: [id number] date: 1965 Sex: F Assigned Patient Location: ER Current Patient Location: ER Accession/Order Number: [id number] Exam Date: 03/04/2023 12:45 Report Date: 03/04/2023 13:15 At the request of: AUBREY JAIMES Procedure: CT angio chest EXAM: CT angio chest HISTORY: dyspnea/new atrial fib COMPARISON: 05/02/2020 TECHNIQUE: Axial CT images were obtained of the chest with intravenous contrast in the pulmonary arterial phase. Multiplanar, MIP and 3-D reconstructions were performed. CHEST FINDINGS: Lower neck: A small nodule measuring 8.5 mm is noted in the right lobe the thyroid gland. Lungs/Pleura: Small bilateral pleural effusions are present with patchy bibasilar atelectasis or infiltrate. No pleural effusion or pneumothorax. Pulmonary Arteries: No evidence of pulmonary embolus. Cardiovascular: The heart is enlarged. No significant coronary artery calcification identified. The aorta is unremarkable. Pericardium: No effusion. Mediastinum: Unremarkable. Lymph Nodes: No lymph node enlargement by CT size criteria. Bones: No acute osseous abnormality. Soft tissues: Unremarkable. Upper Abdomen: Unremarkable. CT/CT angio chest IMPRESSION: 1. No pulmonary embolus identified. 2. Small bilateral pleural effusions are present with mild patchy bibasilar atelectasis or infiltrate. 3. Cardiomegaly. Electronically authenticated by: ROBERT ARNETT Date: 03/04/2023 13:15
--- NOTE | 2023-03-04 12:59 | CA_ITS ---
Patient Name: ESSIE STEELE MR#: [id number] : 1965 Exam Date: 03/04/2023 Ordering Doctor: DR Brett Paniagua . ECHOCARDIOGRAM REPORT PROCEDURE: CA ECHO DOPPLER COMPLETE INDICATIONS: Dyspnea, new atrial fibrillation COMPARISON: None. DESCRIPTION: COMPLETE ECHOCARDIOGRAM Real-time transthoracic echocardiography with 2D, M-mode, spectral and color flow Doppler performed. QUALITY: Technically difficult due to patient's condition. 67 , 225#. BSA 2.10 m2 LEFT VENTRICLE: Normal chamber size. Normal left ventricular wall thickness. LV EF: Global left ventricular systolic function is difficult to assess but appears preserved; visually estimated ejection fraction is 55 to 60%. Unable to assess regional wall motion abnormalities. DIASTOLIC: Not adequately assessed due to heart rhythm. ATRIAL SEPTUM: Inadequately visualized. LEFT ATRIUM: Poorly seen. Appears enlarged. RIGHT ATRIUM: Poorly seen. Appears enlarged. RIGHT VENTRICLE: Poorly seen; appears normal in size and systolic function. TRICUSPID VALVE: Normal mobility and thickness. MITRAL VALVE: Normal mobility and thickness. There is no mitral annular calcification. No mitral regurgitation. AORTIC VALVE: Normal trileaflet appearance. No visible sclerosis. Normal leaflet mobility. No aortic regurgitation. AORTIC ROOT: Normal diameter and appearance. PULMONIC VALVE: Not well visualized. No stenosis. No regurgitation. PERICARDIUM: No evidence of pericardial effusion. IVC: Collapses with inspirations. CONCLUSION: 1. Global left ventricular systolic function is difficult to assess but appears preserved; visually estimated ejection fraction is 5 to 60% 2. The right ventricle is poorly seen; it appears normal in size and systolic function 3. The atria appear enlarged 4. Valvular structures are poorly seen; unable to assess significant abnormalities with accuracy Adult Echocardiography Procedure Report Left Ventricle LVEDD (3.7 - 5.6 cm): 4.21 cm LVESD (2.2 - 4.0 cm): 3.16 cm LVIVS thickness (0.6 - 1.2 cm): 0.95 cm LVPW thickness (0.5 - 1.0 cm): 1.00 cm LVOT Diameter 1.84 cm Left Atrium Left Atrium Systolic Dimension: 3.11 cm Mitral Valve Mitral Valve E-Wave Peak Velocity: 0.46 m/s Right Ventricle Aorta AO Root Diam: 3.16 cm Ascending Ao Diam: 2.51 cm Aortic Valve Peak Velocity(Antegrade Flow): 1.22 m/s Peak Gradient(Antegrade Flow): 5.97 mm[Hg] Tricuspid Valve Pulmonic Valve Peak Velocity: 0.65 m/s Peak Gradient: 1.42 mm[Hg], 1.94 mm[Hg] Right Atrium Dictated by: Laureen Fall M.D. on 03/05/2023 at 08:49 Approved by: Laureen Fall M.D. on 03/05/2023 at 08:53
[2023-03-04 13:00] LABS: Influenza Virus A Antigen Negative; Influenza Virus B Antigen Negative; Internal Control Within Normal Limits
--- OUTSIDE RECORDS SUMMARY | 2023-03-04 13:40 | XMS_ITS | CCD ---
Author Name Unknown Address [address] [place] [address] Organization [facility] Care Team Providers Care Director Of Strategic Partnerships Name Role Phone ADA LUNA Referring Unavailable KYAY PANIAGUA Primary Care Unavailable Nader Paniagua Primary Care Provider [phone] René Holley Attending Provider [phone] René Holley Unavailable [facility] DR [place] [...] Facility (2 sources) Codeine Drug Allergy Unknown [email or web address] Other (2 sources) Meperidine Drug Allergy Unknown [email or web address] Other (1 source) Codeine Drug Allergy [facility] (1 source) Meperidine Drug Allergy [facility] Medications Current Medications Medication Drug [...] Pr opionate (Flonase Allergy Relief) 50 mcg/actuation [place],Suspension Active 1 SPRAY INTRANASAL Daily November 02, [...] INSULINon 06-13-2022 Insulin 8.5 uIU/mL Normal 2.6-24.9 [facility] Comment on above: Performed By: #### I NSULIN #### [facility] [address] [place] [address] Dr. Delonte Sparrow AMMONIAon 06-12-2022 Ammonia (P) [Moles/Vol] 33 umol/L Critically high 11-32 [facility] Comment on above: Performed By: #### A MM #### [facility] [address] [place] [address] Dr. Delonte Sparrow AMYLASEon 06-12-2022 Amylase [Catalytic activity/Vol] 47 U/L Normal 25-115 [facility] Comment on above: Performed By: #### L IPA, CMP, NONI #### [facility] [address] [place] [address] Dr. Delonte Sparrow CBC AUTO DIFFon 06-12-2022 BASO # 0.0 103/ul Normal 0.0-0.1 [facility] Comment on above: Performed By: #### C BC #### [facility] [address] [place] [address] Dr. Delonte Sparrow Basophils/100 WBC (Bld) 0.7 % Normal 0.2-2.0 [facility] Comment on above: Performed By: #### C BC #### [facility] [address] [place] [address] Dr. Delonte Sparrow EO # 0.3 103/ul Normal 0.0-0.7 [facility] Comment on above: Performed By: #### C BC #### [facility] [address] [place] [address] Dr. Delonte Sparrow Eosinophils/100 WBC (Bld) 4.3 % Normal 0.9-7.0 [facility] Comment on above: Performed By: #### C BC #### [facility] [address] [place] [address] Dr. Delonte Sparrow Erythrocyte distribution width (RBC) [Ratio] 15.0 % Normal 11.0-15.0 [facility] Comment on above: Performed By: #### C BC #### [facility] [address] [place] [address] Dr. Delonte Sparrow Hematocrit (Bld) [Volume fraction] 38.8 % Normal 36.0-48.0 [facility] Comment on above: Performed By: #### C BC #### [facility] [address] [place] [address] Dr. Delonte Sparrow Hemoglobin (Bld) [Mass/Vol] 12.0 g/dL Normal 12.0-16.0 [facility] Comment on above: Performed By: #### C BC #### [facility] [address] [place] [address] Dr. Delonte Sparrow IG # 0.03 10e3/ul Normal 0.00-0.03 [facility] Comment on above: Performed By: #### C BC #### [facility] [address] [place] [address] Dr. Delonte Sparrow IG % 0.5 % Normal 0.0-0.5 [facility] Comment on above: Performed By: #### C BC #### [facility] [address] [place] [address] Dr. Delonte Sparrow LYMPH # 1.7 103/ul Normal 1.2-3.8 [facility] Comment on above: Performed By: #### C BC #### [facility] [address] [place] [address] Dr. Delonte Sparrow Lymphocytes/100 WBC (Bld) 27.3 % Normal 20.5-60.0 [facility] Comment on above: Performed By: #### C BC #### [facility] [address] [place] [address] Dr. Delonte Sparrow MANUAL DIFF REQ NO Normal [facility] Comment on above: Performed By: #### C BC #### [facility] [address] [place] [address] Dr. Delonte Sparrow MCH (RBC) [Entitic mass] 24.1 pg Critically low 26.7-34.0 [facility] Comment on above: Performed By: #### C BC #### [facility] [address] [place] [address] Dr. Delonte Sparrow MCHC (RBC) [Mass/Vol] 30.9 g/dL Normal 29.9-35.2 [facility] Comment on above: Performed By: #### C BC #### [facility] [address] [place] [address] Dr. Delonte Sparrow MCV (RBC) [Entitic vol] 78.1 fL Critically low 81.0-99.0 [facility] Comment on above: Performed By: #### C BC #### [facility] [address] [place] [address] Dr. Delonte Sparrow MONO # 0.4 103/ul Normal 0.3-0.8 [facility] Comment on above: Performed By: #### C BC #### [facility] [address] [place] [address] Dr. Delonte Sparrow Monocytes/100 WBC (Bld) 6.4 % Normal 1.7-12.0 [facility] Comment on above: Performed By: #### C BC #### [facility] [address] [place] [address] Dr. Delonte Sparrow NEUT # 3.7 103/ul Normal 1.4-6.5 [facility] Comment on above: Performed By: #### C BC #### [facility] [address] [place] [address] Dr. Delonte Sparrow Neutrophils/100 WBC (Bld) 60.8 % Normal 43.0-75.0 [facility] Comment on above: Performed By: #### C BC #### [facility] [address] [place] [address] Dr. Delonte Sparrow Platelet mean volume (Bld) [Entitic vol] 9.7 fL Normal 9.5-13.5 [facility] Comment on above: Performed By: #### C BC #### [facility] [address] [address] [address] Delonte Sparrow PLT 263 103/ul Normal 150-450 [facility] Comment on above: Performed By: #### C BC #### [facility] [address] [address] [address] Delonte Sparrow RBC 4.97 106/ul Normal 4.20-5.40 [facility] Comment on above: Performed By: #### C BC #### [facility] [address] [address] [address] Deolnte Sparrow WBC 6.1 103/ul Normal 4.0-11.0 [facility] Comment on above: Performed By: #### C BC #### [facility] [address] [place] [address] Dr. Delonte Sparrow FREE THYROXINE INDEX T7on FTI 2.61 Normal 1.30-4.50 [facility] Comment on above: Performed By: #### L IPA, CMP, NONI #### [facility] [address] [place] [address] Dr. Delonte Sparrow T3U 33.0 % Normal 30.0-39.0 [facility] Comment on above: Performed By: #### L IPA, CMP, NONI #### [facility] [address] [place] [address] Dr. Delonte Sparrow T4 [Mass/Vol] 7.90 ug/dL Normal 4.80-13.90 [facility] Comment on above: Performed By: #### L IPA, CMP, NONI #### [facility] [address] [place] [address] Dr. Delonte Sparrow GLYCOHEMOGLOBIN A1Con 2022 ADA RECOMMENDATION SEE BELOW Normal [facility] Comment on above: Result Comment: ADA RECOMMENDED LIMIT 4.0 - 6.0 ADA THERAPEUTIC TARGET < 7.0 ACTION SUGGESTED > 7.0 Performed By: #### A 1C #### [facility] [address] [place] [address] Dr. Delonte Sparrow Glucose [Mass/Vol] 105 mg/dL Normal [facility] Comment on above: Performed By: #### A 1C #### [facility] [address] [place] [address] Dr. Delonte Sparrow HbA1c (Bld) [Mass fraction] 5.3 % Normal 4.5-6.2 [facility] Comment on above: Performed By: #### A 1C #### [facility] [address] [place] [address] Dr. Delonte Sparrow IRONon 06-12-2022 Iron [Mass/Vol] 35.0 ug/dL Critically low 50.0-170.0 [facility] Comment on above: Performed By: #### L ADELE OCONNELL, NONI #### [facility] [address] [place] [address] Dr. Delonte Sparrow LIPASEon 06-12-2022 Lipase [Catalytic activity/Vol] 130.0 U/L Normal 73.0-393.0 [facility] Comment on above: Performed By: #### L KOURTNEY CMP, NONI #### [facility] [address] [place] [address] Dr. Delonte Sparrow TSHon 06-12-2022 TSH 1.741 uIU/mL Normal 0.358-3.740 [facility] Comment on above: Performed By: #### L IPA CMP, NONI #### [facility] [address] [place] [address] Dr. Delonte Sparrow VITAMIN D 25 OHon 06-12-2022 VIT D 25-OH 20.9 ng/mL Normal [facility] Comment on above: Performed By: #### I AMANDA VITAD #### [facility] [address] [place] [address] Dr. Delonte Sparrow VIT D RANGES SEE BELOW Normal [facility] Comment on above: Result Comment: <20 ng/mL Vit D deficient 20 - <30 ng/mL Vit D insufficient 30 - 100 ng/mL Vit D sufficient >100 ng/mL Potential Toxicity Performed By: #### I AMANDA VITAD #### [facility] [address] [place] [address] Dr. Delonte Sparrow AMYLASEon 08-21-2021 Amylase [Catalytic activity/Vol] 26 U/L Normal 25-115 [facility] Comment on above: Performed By: #### L IPA, CMP, NONI #### [facility] [address] [place] [address] Dr. Delonte Sparrow CBC W MANUAL DIFFon 08-22-19 22 ATYPICAL LYMPH # Normal [facility] Comment on above: Performed By: #### C BCMAN #### [facility] [address] [place] [address] Dr. Delonte Sparrow ATYPICAL LYMPH % Normal [facility] Comment on above: Performed By: #### C BCMAN #### [facility] [address] [place] [address] Dr. Delonte Sparrow BAND # Normal 0.0-0.3 [facility] Comment on above: Performed By: #### C BRITT #### [facility] [address] [place] [address] Dr. Delonte Sparrow BAND % Normal 0-5 [facility] Comment on above: Performed By: #### C BCSEA #### [facility] [address] [place] [address] Dr. Delonte Sparrow BASOM # 0.00 103/ul Normal 0.00-0.10 [facility] Comment on above: Performed By: #### C BCSEA #### [facility] [address] [place] [address] Dr. Delonte Sparrow BASOM % 0.0 % Critically low 0.2-2.[address] [facility] Comment on above: Performed By: #### C BCSEA #### [facility] [address] [place] [address] Dr. Delonte Sparrow BLAST # Normal [facility] Comment on above: Performed By: #### C BCMAN #### [facility] [address] [place] [address] Dr. Delonte Sparrow BLAST % Normal [facility] Comment on above: Performed By: #### C BCSEA #### [facility] [address] [place] [address] Dr. Delonte Sparrow CORRECTED WBC Normal 4.0-11.0 [facility] Comment on above: Performed By: #### C BCMAN #### [facility] [address] [address] [address] Delonte Sparrow EOS # 15.45 103/ul Critically high 0.00-0.70 [facility] Comment on above: Performed By: #### C BCSEA #### [facility] [address] [address] [address] Delonte Sparrow EOS% 57.0 % Critically high 0.9-7.0 [facility] Comment on above: Performed By: #### C BCSEA #### [facility] [address] [address] [address] Delonte Sparrow HCT 45.1 % Normal 36.0-48.0 [facility] Comment on above: Performed By: #### C BCSEA #### [facility] [address] [address] [address] Delonte Sparrow HGB 13.9 g/dl Normal 12.0-16.0 [facility] Comment on above: Performed By: #### C BRITT #### [facility] [address] [address] [address] Delonte Sparrow LYMPHM # 2.98 103/ul Normal 1.20-3.80 [facility] Comment on above: Performed By: #### C BRITT #### [facility] [address] [address] [address] Delonte Sparrow LYMPHM% 11.0 % Critically low 20.5-60.[address] [facility] Comment on above: Performed By: #### C BCSEA #### [facility] [address] [address] [address] Delonte Sparrow MCH 23.3 pg Critically low 26.7-34.[address] [facility] Comment on above: Performed By: #### C BCSEA #### [facility] [address] [address] [address] Delonte Sparrow MCHC 30.8 g/dl Normal 29.9-35.2 [facility] Comment on above: Performed By: #### C BRITT #### [facility] [address] [address] [address] Delonte Sparrow MCV 75.5 fL Critically low 81.0-99.0 [facility] Comment on above: Performed By: #### C BRITT #### [facility] [address] [place] [address] Dr. Delonte Sparrow METAMYELOCYTE # Normal [facility] Comment on above: Performed By: #### C BRITT #### [facility] [address] [place] [address] Dr. Delonte Sparrow METAMYELOCYTE % Normal [facility] Comment on above: Performed By: #### C BRITT #### [facility] [address] [place] [address] Dr. Delonte Sparrow MONOM# 1.63 103/ul Critically high 0.30-0.80 [facility] Comment on above: Performed By: #### C BRITT #### [facility] [address] [place] [address] Dr. Delonte Sparrow MONOM% 6.0 % Normal 1.7-12.0 [facility] Comment on above: Performed By: #### C BRITT #### [facility] [address] [place] [address] Dr. Delonte Sparrow MPV 9.9 fL Normal 9.5-13.5 [facility] Comment on above: Performed By: #### C BRITT #### [facility] [address] [place] [address] Dr. Delonte Sparrow MYELOCYTE # Normal [facility] Comment on above: Performed By: #### C BRITT #### [facility] [address] [place] [address] Dr. Delonte Sparrow MYELOCYTE % Normal [facility] Comment on above: Performed By: #### C BRITT #### [facility] [address] [place] [address] Dr. Delonte Sparrow NRBC Normal [facility] Comment on above: Performed By: #### C BRITT #### [facility] [address] [place] [address] Dr. Delonte Sparrow PLT 343 103/ul Normal 150-450 [facility] Comment on above: Performed By: #### Pravin DE LA TORRE #### [facility] [address] [address] [address] Delonte Sparrow RBC 5.97 106/ul Critically high 4.20-5.40 [facility] Comment on above: Performed By: #### Pravin DE LA TORRE #### [facility] [address] [address] [address] Delonte Sparrow RDW 16.9 % Critically high 11.0-15.0 [facility] Comment on above: Performed By: #### Pravin DE LA TORRE #### [facility] [address] [place] [address] Dr. Delonte Sparrow SEG # 7.05 103/ul Critically high 1.40-6.50 [facility] Comment on above: Performed By: #### Pravin DE LA TORRE #### [facility] [address] [place] [address] Dr. Delonte Sparrow SEG % 26.0 % Critically low 43.0-75.0 [facility] Comment on above: Performed By: #### Pravin DE LA TORRE #### [facility] [address] [place] [address] Dr. Delonte Sparrow WBC 27.1 103/ul Critically high 4.0-11.0 [facility] Comment on above: Performed By: #### Pravin DE LA TORRE #### [facility] [address] [place] [address] ABD/PELV W CONon [...] DWIGHT TOBAR Date: 2021-08-21 16:48 Normal [facility] LIPASEon 08-21-2021 Lipase [Catalytic activity/Vol] 58.0 U/L Critically low 73.0-393.0 [facility] Comment on above: Performed By: #### L IPA, CMP, NONI #### [facility] [address] [place] [address] Dr. Delonte Sparrow PROF 14(COMP METB)on 022 Albumin [Mass/Vol] 3.6 g/dL Normal 3.4-5.0 [facility] Comment on above: Performed By: #### L IPA, CMP, NONI #### [facility] [address] [address] [address] Delonte Sparrow Albumin/Globulin [Mass ratio] 1.0 {ratio} Normal [facility] Comment on above: Performed By: #### L IPA, CMP, NONI #### [facility] [address] [address] [address] Delonte Sparrow ALP [Catalytic activity/Vol] 125 U/L Critically high 46-116 [facility] Comment on above: Performed By: #### L IPA, CMP, NONI #### [facility] [address] [address] [address] Delonte Sparrow ALT [Catalytic activity/Vol] 27 U/L Normal 14-59 [facility] Comment on above: Performed By: #### L IPA, CMP, NONI #### [facility] [address] [address] [address] Delonte Sparrow Anion gap [Moles/Vol] 12.7 mmol/L Normal [facility] Comment on above: Performed By: #### L IPA, CMP, NONI #### [facility] [address] [address] [address] Delonte Sparrow AST [Catalytic activity/Vol] 15 U/L Normal 15-37 [facility] Comment on above: Performed By: #### L IPA, CMP, NONI #### [facility] [address] [address] [address] Delonte Sparrow Bilirubin [Mass/Vol] 0.3 mg/dL Normal 0.2-1.0 [facility] Comment on above: Performed By: #### L IPA, CMP, NONI #### [facility] [address] [address] [address] Delonte Sparrow Calcium [Mass/Vol] 8.2 mg/dL Critically low 8.5-10.1 [facility] Comment on above: Performed By: #### L IPA, CMP, NONI #### [facility] [address] [address] [address] Delonte Sparrow Chloride [Moles/Vol] 103 mmol/L Normal 98-107 [facility] Comment on above: Performed By: #### L IPA, CMP, NONI #### [facility] [address] [address] [address] Delonte Sparrow CO2 [Moles/Vol] 29.2 mmol/L Normal 21.0-32.0 [facility] Comment on above: Performed By: #### L IPA, CMP, NONI #### [facility] [address] [address] [address] Delonte Sparrow Creatinine [Mass/Vol] 0.81 mg/dL Normal 0.55-1.02 [facility] Comment on above: Performed By: #### L IPA, CMP, NONI #### [facility] [address] [place] [address] Dr. Delonte Sparrow EGFR-AF GERMAN >60 Normal >=60 [facility] Comment on above: Performed By: #### L IPA, CMP, NONI #### [facility] [address] [place] [address] Dr. Delonte Sparrow EGFR-NON AF GERMAN >60 Normal >=60 [facility] Comment on above: Performed By: #### L IPA, CMP, NONI #### [facility] [address] [place] [address] Dr. Delonte Sparrow Globulin (S) [Mass/Vol] 3.7 g/dL Normal [facility] Comment on above: Performed By: #### L IPA, CMP, NONI #### [facility] [address] [address] [address] eDlonte Sparrow Glucose [Mass/Vol] 103 mg/dL Normal 74-106 [facility] Comment on above: Performed By: #### L IPA, CMP, NONI #### [facility] [address] [address] [address] Delonte Sparrow Potassium [Moles/Vol] 3.9 mmol/L Normal 3.5-5.1 [facility] Comment on above: Performed By: #### L IPA, CMP, NONI #### [facility] [address] [address] [address] Delonte Sparrow Protein [Mass/Vol] 7.3 g/dL Normal 6.4-8.2 [facility] Comment on above: Performed By: #### L IPA, CMP, NONI #### [facility] [address] [address] [address] Delonte Sparrow Sodium [Moles/Vol] 141 mmol/L Normal 136-145 [facility] Comment on above: Performed By: #### L IPA, CMP, NONI #### [facility] [address] [place] [address] Dr. Delonte Sparrow Urea nitrogen [Mass/Vol] 16.0 mg/dL Normal 7.0-18.0 [facility] Comment on above: Performed By: #### L IPA, CMP, NONI #### [facility] [address] [address] [address] Delonte Sparrow Urea nitrogen/Creatinine [Mass ratio] 19.8 mg/mg Normal [facility] Comment on above: Performed By: #### L IPA, CMP, NONI #### [facility] [address] [place] [address] Dr. Delonte Awan 06-22-2020 L Specimen: [id number] Received: 06/22/20 Status: BD Black Num: [id number] Spec Type: Surgical Subm Dr: René Holley Jr, DO Tissues: A Small Intestine - Biopsy/Polyp (TERMINAL ILEUM) B Colon - Polyp (RECTOSIGMOID POLYP) Procedures: HE Stain/4, Gross/Micro L4/2 Patient Age/Sex Location Account Attending Physician Malu Steele 55/F [id number] René Holley Jr, DO SPEC NUM: [id number] RECD: 06/22/208 STATUS: DB HERLINDA NUM: [id number] GAVINO: 06/22/20-1247 [facility] DR: René Holley Jr, DO ENTERED: 06/22/205273 [facility] DR: SONYA TYPE: Surgical DEPT: S ORDERED: [...] in one cassette labeled B1. (/YJ) Specimen: [id number] Received: 06/22/20 Status: DB Black Num: [id number] Spec Type: Surgical Subm Dr: René Holley Jr, DO Tissues: A Small Intestine - Biopsy/Polyp (TERMINAL ILEUM) B Colon - Polyp (RECTOSIGMOID POLYP) Procedures: HE Stain/4, Gross/Micro L4/2 Patient: Malu Steele [id number] (Continued) Specimen: [id number] Received: 06/22/20 (Continued) Signed (signature on file) Iveth Patel MD 06/25/20 1528 Specimen: [id number] Received: 06/22/20 Status: DB Black Num: [id number] Spec Type: Surgical Subm Dr: René Holley Jr, DO Tissues: A Small Intestine - Biopsy/Polyp (TERMINAL ILEUM) B Colon - Polyp (RECTOSIGMOID POLYP) Procedures: HE Stain/4, Gross/Micro L4/2 Patient: Malu Steele Christen [id number] (Continued) Specimen: [id number] Received: 06/22/20 (Continued) Microscopic Description A. Two glass slides with H E stained material have been examined. The microscopic findings support the above pathologic diagnosis. B. Two glass slides with H E stained material have been examined. The microscopic findings support the above pathologic diagnosis. CPT Codes 60280?2 Specimen: [id number] Received: 06/22/20 Status: DB Black Num: [id number] Spec Type: Surgical Subm Dr: René Holley Jr, DO Tissues: A Small Intestine - Biopsy/Polyp (TERMINAL ILEUM) B Colon - Polyp (RECTOSIGMOID POLYP) Procedures: HE Stain/4, Gross/Micro L4/2 Patient: Malu Steele [id number] (Continued) Signed (signature on file) Iveth Patel MD 06/25/20 1528 Normal [facility] COVID-19 [facility] 06-20-2020 SARS-CoV-2 (COVID-19) RNA WES+probe Ql (Unsp spec) Negative Normal Negative [facility] Comment on above: Order Comment: Healt hcare Worker?: N Result Comment: Test ing for SARS-CoV-2 by RT-PCR This test was developed and its performance characteristics determined by [employer] ([place]) and validated at the [facility]. This test has not been FDA [...] is terminated or revoked sooner. PERFORMED BY: [place] [address] PATHOLOGIST PRODUCTION ENGINE REPAIRER NIALL MILAN M.D. Performed By: #### C OVID-19 [facility] #### [address] COVID-19 Positive/Negativeon 06-20-2020 SARS-CoV-2 (COVID-19) N gene WES+probe Ql (Resp) Negative Negative [facility] Comment on above: Testing for SARS-CoV -2 by RT-PCRThis test was developed and its performance characteristics determined by [employer] ([employer] and validated at the [facility]. This test has not been FDA [...] (COVID-19) RNA WES+probe Ql (Unsp spec) N/A [facility] Cytologyon 04-12-2018 Cytology (NOTE) [id number] [employer] [facility] ANATOMIC PATHOLOGY [address] [place] [id number] GYNECOLOGIC CYTOLOGY REPORT Patient Name: MALU STEELE MR#: [id number] Specimen #[id number] Source: 1: Cervical material, (ThinPrep vial, Imaging-assisted review) Clinical History Postmenopausal Z01.419 Routine side gluer exam without abnormal findings High Risk HPV DNA testing is requested if the diagnosis is ASC-US LMP: 11/11/15 INTERPRETATION Cervical material, (ThinPrep vial, Imaging-assisted review): Specimen Adequacy: Satisfactory for evaluation. - Endocervical/transfo rmation zone component present. - Scant cellularity, predominantly inflammatory exudate. Descriptive Diagnosis: Negative for intraepithelial lesion or malignancy. Shift in bruce suggestive of bacterial vaginosis. Hand Tile Maker: HARJIT Valera(ASCP) Electronically Signed Out bessie/04/23/2018 Normal [facility] Comment on above: Performed By: #### P PPVP #### [facility] [address] [place] [address] [id number] Professor Of German: Karthik Lynn MD Vital Signs Date Time Vital Sign Value Performing Clinician Facility 10-07-2022 09:30-0400 Body height 170.18 cm Philippe Wise Other [email or web address] Other 10-07-2022 09:30-0400 Body mass index (BMI) [Ratio] 34.45 kg/m2 Philippe Wise Other [email or web address] Other 10-07-2022 09:30-0400 Body weight 99.79 kg Philippe Esterrosalie Other [email or web address] Other 10-07-2022 09:30-0400 Diastolic blood pressure 83 mm[Hg] Philippe Esterrosalie Other [email or web address] Other 10-07-2022 09:30-0400 Systolic blood pressure 139 mm[Hg] Philippe Wise Other [email or web address] Other 08-29-2021 12:00-0400 Body height 170.18 cm René Holley Other [email or web address] Other 08-29-2021 12:00-0400 Body mass index (BMI) [Ratio] 35.55 kg/m2 René Holley Other [email or web address] Other 08-29-2021 12:00-0400 Body weight 102.97 kg René Holley Other [email or web address] Other 08-29-2021 12:00-0400 Diastolic blood pressure 89 mm[Hg] René Holley Other [email or web address] Other 08-29-2021 12:00-0400 Systolic blood pressure 142 mm[Hg] René Holley Other [email or web address] Other Encounters Encounter Date Encounter Type Care Provider Facility Start: 10-07-2022 End: 10-07-2022 ambulatory Philippe Wise Other [email or web address] Other Start: 10-07-2022 Patient encounter procedure Philippe Wise [facility] Start: 07-07-[address] KAYY PANIAGUA . Facili ty:[facility] Start: 06-12-2022 End: 06-13-[address] KAYY PANIAGUA . Facility:[facility] Start: 08-29-2021 End: 08-29-2021 ambulatory René Holley Other [email or web address] Other Start: 08-29-2021 Office outpatient vi sit 25 minutes René Holley [facility] Start: 08-21-2021 End: 08-22-[address] KAYY PANIAGUA . Facility:[facility] Start: 06-20-2020 End: 06-20-2020 Patient encounter procedure Nader Kayy [place] Work Phone: -Pre-Surgical Testing Start: 04-12-2018 Encounter for gynecological examination (general) (routine) without abnormal findings [facility] Start: 04-12-2018 End: 04-13-2018 Patient encounter procedure [facility] Procedures Date Procedure Procedure Detail Performing Clinician Start: 04-12-2018 Screen pap by gisela cleveland md supv [facility] Payers Date Payer Category Payer Unknown [id number] 1965 Unknown [id number] 1966 Unknown [id number] 1966 Unknown [id number] 1958 Private Health Insurance [id number] Self-pay [employer] [id number] Unknown [employer] [id number] Social History Date Type Detail Facility Start: 11-03-2018 Tobacco smoking status NHIS Ex-smoker (finding) [facility] Start: 1965 Sex Assigned At Female F [facility] Sex Assigned At Sex Assigned At Bir th [email or web address] Other Goals Date Patient Goal Desired Activity [...] Patient can restart dicyclomine 20mg TID PRN. [email or web address] Other Evaluation note 08-29-2021 Note Date & Type Note Facility 08-29-2021 Evaluation note Encounter Date Diagnosis Assessment Notes Aug, Crohns disease (ICD-10 - K50.90) Aug, Viral gastroenteritis (ICD-10 - A08.4) Continue prednisone as prescribed by PCP Start Cipro 500mg bid for 7 days Patient to call when she finished prednisone and cipro if symptoms do not improve. Follow up in 4 weeks. [email or web address] Other History general Narrative - Reported 07-24-2020 Note Date & Type Note Facility 07-24-2020 History general N arrative - Reported Type Medical History Crohns disease Surgical History C section X2 Surgical History hysterectomy 07/2020 [facility] [employer] Other Evaluation note Note Date & Type Note Facility Evaluation note No Assessments Information Avail able [facility] Summary Purpose Family History Relationship Condition [...] DATE CREATED AUTHOR AUTHOR'S ORGANIZ ATION 04/04/2021 [facility] DATE CREATED AUTHOR AUTHOR'S ORGANIZ [...] BE BASED ON THE PRIMARY CLINICAL RECORDS. [facility]. provides no warranty or guarantee of the accuracy or completeness of information in this document.
--- OUTSIDE RECORDS SUMMARY | 2023-03-04 13:45 | XMS_ITS | CCD ---
Author Name Unknown Address [address] [place] [address] Organization [facility] Care Team Providers Care Rn Case Manager Name Role Phone ADA LUNA Referring Unavailable [...] Facility (2 sources) Codeine Drug Allergy Unknown [facility] Other (2 sources) Meperidine Drug Allergy Unknown [facility] Other (1 source) Codeine Drug Allergy [facility] (1 source) Meperidine Drug Allergy [facility] Medications Current Medications Medication Drug [...] Pr opionate (Flonase Allergy Relief) 50 mcg/actuation [place],Suspension Active 1 SPRAY INTRANASAL Daily November 02, [...] INSULINon 06-13-2022 Insulin 8.5 uIU/mL Normal 2.6-24.9 [facility] Comment on above: Performed By: #### I NSULIN #### [facility] [address] [place] [address] Dr. Delonte Sparrow AMMONIAon 06-12-2022 Ammonia (P) [Moles/Vol] 33 umol/L Critically high 11-32 [facility] Comment on above: Performed By: #### A MM #### [facility] [address] [place] [address] Dr. Delonte Sparrow AMYLASEon 06-12-2022 Amylase [Catalytic activity/Vol] 47 U/L Normal 25-115 [facility] Comment on above: Performed By: #### L IPA, CMP, NONI #### [facility] [address] [place] [address] Dr. Delonte Sparrow CBC AUTO DIFFon 06-12-2022 BASO # 0.0 103/ul Normal 0.0-0.1 [facility] Comment on above: Performed By: #### C BC #### [facility] [address] [place] [address] Dr. Delonte Sparrow Basophils/100 WBC (Bld) 0.7 % Normal 0.2-2.0 [facility] Comment on above: Performed By: #### C BC #### [facility] [address] [place] [address] Dr. Delonte Sparrow EO # 0.3 103/ul Normal 0.0-0.7 [facility] Comment on above: Performed By: #### C BC #### [facility] [address] [place] [address] Dr. Delonte Sparrow Eosinophils/100 WBC (Bld) 4.3 % Normal 0.9-7.0 [facility] Comment on above: Performed By: #### C BC #### [facility] [address] [place] [address] Dr. Delonte Sparrow Erythrocyte distribution width (RBC) [Ratio] 15.0 % Normal 11.0-15.0 [facility] Comment on above: Performed By: #### C BC #### [facility] [address] [place] [address] Dr. Delonte Sparrow Hematocrit (Bld) [Volume fraction] 38.8 % Normal 36.0-48.0 [facility] Comment on above: Performed By: #### C BC #### [facility] [address] [place] [address] Dr. Delonte Sparrow Hemoglobin (Bld) [Mass/Vol] 12.0 g/dL Normal 12.0-16.0 [facility] Comment on above: Performed By: #### C BC #### [facility] [address] [place] [address] Dr. Delonte Sparrow IG # 0.03 10e3/ul Normal 0.00-0.03 [facility] Comment on above: Performed By: #### C BC #### [facility] [address] [place] [address] Dr. Delonte Sparrow IG % 0.5 % Normal 0.0-0.5 [facility] Comment on above: Performed By: #### C BC #### [facility] [address] [place] [address] Dr. Delonte Sparrow LYMPH # 1.7 103/ul Normal 1.2-3.8 [facility] Comment on above: Performed By: #### C BC #### [facility] [address] [place] [address] Dr. Delonte Sparrow Lymphocytes/100 WBC (Bld) 27.3 % Normal 20.5-60.0 [facility] Comment on above: Performed By: #### C BC #### [facility] [address] [place] [address] Dr. Delonte Sparrow MANUAL DIFF REQ NO Normal [facility] Comment on above: Performed By: #### C BC #### [facility] [address] [place] [address] Dr. Delonte Sparrow MCH (RBC) [Entitic mass] 24.1 pg Critically low 26.7-34.0 [facility] Comment on above: Performed By: #### C BC #### [facility] [address] [place] [address] Dr. Delonte Sparrow MCHC (RBC) [Mass/Vol] 30.9 g/dL Normal 29.9-35.2 [facility] Comment on above: Performed By: #### C BC #### [facility] [address] [place] [address] Dr. Delonte Sparrow MCV (RBC) [Entitic vol] 78.1 fL Critically low 81.0-99.0 [facility] Comment on above: Performed By: #### C BC #### [facility] [address] [place] [address] Dr. Delonte Sparrow MONO # 0.4 103/ul Normal 0.3-0.8 [facility] Comment on above: Performed By: #### C BC #### [facility] [address] [place] [address] Dr. Delonte Sparrow Monocytes/100 WBC (Bld) 6.4 % Normal 1.7-12.0 [facility] Comment on above: Performed By: #### C BC #### [facility] [address] [place] [address] Dr. Delonte Sparrow NEUT # 3.7 103/ul Normal 1.4-6.5 [facility] Comment on above: Performed By: #### C BC #### [facility] [address] [place] [address] Dr. Delonte Sparrow Neutrophils/100 WBC (Bld) 60.8 % Normal 43.0-75.0 [facility] Comment on above: Performed By: #### C BC #### [facility] [address] [place] [address] Dr. Delonte Sparrow Platelet mean volume (Bld) [Entitic vol] 9.7 fL Normal 9.5-13.5 [facility] Comment on above: Performed By: #### C BC #### [facility] [address] [address] [address] Delonte Sparrow PLT 263 103/ul Normal 150-450 [facility] Comment on above: Performed By: #### C BC #### [facility] [address] [address] [address] Delonte Sparrow RBC 4.97 106/ul Normal 4.20-5.40 [facility] Comment on above: Performed By: #### C BC #### [facility] [address] [address] [address] Delonte Sparrow WBC 6.1 103/ul Normal 4.0-11.0 [facility] Comment on above: Performed By: #### C BC #### [facility] [address] [place] [address] Dr. Delonte Sparrow FREE THYROXINE INDEX T7on FTI 2.61 Normal 1.30-4.50 [facility] Comment on above: Performed By: #### L IPA, CMP, NONI #### [facility] [address] [place] [address] Dr. Delonte Sparrow T3U 33.0 % Normal 30.0-39.0 [facility] Comment on above: Performed By: #### L IPA, CMP, NONI #### [facility] [address] [place] [address] Dr. Delonte Sparrow T4 [Mass/Vol] 7.90 ug/dL Normal 4.80-13.90 [facility] Comment on above: Performed By: #### L IPA, CMP, NONI #### [facility] [address] [place] [address] Dr. Delonte Sparrow GLYCOHEMOGLOBIN A1Con 2022 ADA RECOMMENDATION SEE BELOW Normal [facility] Comment on above: Result Comment: ADA RECOMMENDED LIMIT 4.0 - 6.0 ADA THERAPEUTIC TARGET < 7.0 ACTION SUGGESTED > 7.0 Performed By: #### A 1C #### [facility] [address] [place] [address] Dr. Delonte Sparrow Glucose [Mass/Vol] 105 mg/dL Normal [facility] Comment on above: Performed By: #### A 1C #### [facility] [address] [place] [address] Dr. Delonte Sparrow HbA1c (Bld) [Mass fraction] 5.3 % Normal 4.5-6.2 [facility] Comment on above: Performed By: #### A 1C #### [facility] [address] [place] [address] Dr. Delonte Sparrow IRONon 06-12-2022 Iron [Mass/Vol] 35.0 ug/dL Critically low 50.0-170.0 [facility] Comment on above: Performed By: #### L ADELE OCONNELL, NONI #### [facility] [address] [place] [address] Dr. Delonte Sparrow LIPASEon 06-12-2022 Lipase [Catalytic activity/Vol] 130.0 U/L Normal 73.0-393.0 [facility] Comment on above: Performed By: #### L KOURTNEY CMP, NONI #### [facility] [address] [place] [address] Dr. Delonte Sparrow TSHon 06-12-2022 TSH 1.741 uIU/mL Normal 0.358-3.740 [facility] Comment on above: Performed By: #### L IPA CMP, NONI #### [facility] [address] [place] [address] Dr. Delonte Sparrow VITAMIN D 25 OHon 06-12-2022 VIT D 25-OH 20.9 ng/mL Normal [facility] Comment on above: Performed By: #### I AMANDA VITAD #### [facility] [address] [place] [address] Dr. Delonte Sparrow VIT D RANGES SEE BELOW Normal [facility] Comment on above: Result Comment: <20 ng/mL Vit D deficient 20 - <30 ng/mL Vit D insufficient 30 - 100 ng/mL Vit D sufficient >100 ng/mL Potential Toxicity Performed By: #### I AMANDA VITAD #### [facility] [address] [place] [address] Dr. Delonte Sparrow AMYLASEon 08-21-2021 Amylase [Catalytic activity/Vol] 26 U/L Normal 25-115 [facility] Comment on above: Performed By: #### L IPA, CMP, NONI #### [facility] [address] [place] [address] Dr. Delonte Sparrow CBC W MANUAL DIFFon 08-22-19 22 ATYPICAL LYMPH # Normal [facility] [place] [facility] Comment on above: Performed By: #### C BCMAN #### [facility] [address] [place] [address] Dr. Delonte Sparrow ATYPICAL LYMPH % Normal [facility] [place] [facility] Comment on above: Performed By: #### C BCMAN #### [facility] [address] [place] [address] Dr. Delonte Sparrow BAND # Normal 0.0-0.3 [facility] Comment on above: Performed By: #### C BRITT #### [facility] [address] [place] [address] Dr. Delonte Sparrow BAND % Normal 0-5 [facility] Comment on above: Performed By: #### C BCSEA #### [facility] [address] [place] [address] Dr. Delonte Sparrow BASOM # 0.00 103/ul Normal 0.00-0.10 [facility] Comment on above: Performed By: #### C BCSEA #### [facility] [address] [place] [address] Dr. Delonte Sparrow BASOM % 0.0 % Critically low 0.2-2.0 [facility] Comment on above: Performed By: #### C BCSEA #### [facility] [address] [place] [address] Dr. Delonte Sparrow BLAST # Normal [facility] Comment on above: Performed By: #### C BCMAN #### [facility] [address] [place] [address] Dr. Delonte Sparrow BLAST % Normal [facility] Comment on above: Performed By: #### C BCSEA #### [facility] [address] [place] [address] Dr. Delonte Sparrow CORRECTED WBC Normal 4.0-11.0 [facility] Comment on above: Performed By: #### C BCMAN #### [facility] [address] [address] [address] Delonte Sparrow EOS # 15.45 103/ul Critically high 0.00-0.70 [facility] Comment on above: Performed By: #### C BCSEA #### [facility] [address] [address] [address] Delonte Sparrow EOS% 57.0 % Critically high 0.9-7.0 [facility] Comment on above: Performed By: #### C BCSEA #### [facility] [address] [address] [address] Delonte Sparrow HCT 45.1 % Normal 36.0-48.0 [facility] Comment on above: Performed By: #### C BCSEA #### [facility] [address] [address] [address] Delonte Sparrow HGB 13.9 g/dl Normal 12.0-16.0 [facility] Comment on above: Performed By: #### C BRITT #### [facility] [address] [address] [address] Delonte Sparrow LYMPHM # 2.98 103/ul Normal 1.20-3.80 [facility] Comment on above: Performed By: #### C BRITT #### [facility] [address] [address] [address] Delonte Sparrow LYMPHM% 11.0 % Critically low 20.5-60.0 [facility] Comment on above: Performed By: #### C BCSEA #### [facility] [address] [address] [address] Delonte Sparrow MCH 23.3 pg Critically low 26.7-34.0 [facility] Comment on above: Performed By: #### C BCSEA #### [facility] [address] [address] [address] Delonte Sparrow MCHC 30.8 g/dl Normal 29.9-35.2 [facility] Comment on above: Performed By: #### C BRITT #### [facility] [address] [address] [address] Delonte Sparrow MCV 75.5 fL Critically low 81.0-99.0 [facility] Comment on above: Performed By: #### C BRITT #### [facility] [address] [place] [address] Dr. Delonte Sparrow METAMYELOCYTE # Normal [facility] Comment on above: Performed By: #### C BRITT #### [facility] [address] [place] [address] Dr. Delonte Sparrow METAMYELOCYTE % Normal [facility] Comment on above: Performed By: #### C BRITT #### [facility] [address] [place] [address] Dr. Delonte Sparrow MONOM# 1.63 103/ul Critically high 0.30-0.80 [facility] [place] [facility] Comment on above: Performed By: #### C BRITT #### [facility] [address] [place] [address] Dr. Delonte Sparrow MONOM% 6.0 % Normal 1.7-12.0 [facility] Comment on above: Performed By: #### C BRITT #### [facility] [address] [place] [address] Dr. Delonte Sparrow MPV 9.9 fL Normal 9.5-13.5 [facility] Comment on above: Performed By: #### C BRITT #### [facility] [address] [place] [address] Dr. Delonte Sparrow MYELOCYTE # Normal [facility] Comment on above: Performed By: #### C BRITT #### [facility] [address] [place] [address] Dr. Delonte Sparrow MYELOCYTE % Normal [facility] Comment on above: Performed By: #### C BRITT #### [facility] [address] [place] [address] Dr. Delonte Sparrow NRBC Normal [facility] Comment on above: Performed By: #### C BRITT #### [facility] [address] [place] [address] Dr. Delonte Sparrow PLT 343 103/ul Normal 150-450 [facility] Comment on above: Performed By: #### Pravin DE LA TORRE #### [facility] [address] [address] [address] Delonte Sparrow RBC 5.97 106/ul Critically high 4.20-5.40 [facility] [place] [facility] Comment on above: Performed By: #### Pravin DE LA TORRE #### [facility] [address] [address] [address] Delonte Sparrow RDW 16.9 % Critically high 11.0-15.0 [facility] Comment on above: Performed By: #### Pravin DE LA TORRE #### [facility] [address] [place] [address] Dr. Delonte Sparrow SEG # 7.05 103/ul Critically high 1.40-6.50 [facility] [place] [facility] Comment on above: Performed By: #### Pravin DE LA TORRE #### [facility] [address] [place] [address] Dr. Delonte Sparrow SEG % 26.0 % Critically low 43.0-75.0 [facility] Comment on above: Performed By: #### Pravin DE LA TORRE #### [facility] [address] [place] [address] Dr. Delonte Sparrow WBC 27.1 103/ul Critically high 4.0-11.0 [facility] [place] [facility] Comment on above: Performed By: #### Pravin DE LA TORRE #### [facility] [address] [place] [address] ABD/PELV W CONon [...] DWIGHT TOBAR Date: 2021-08-21 16:48 Normal [facility] LIPASEon 08-21-2021 Lipase [Catalytic activity/Vol] 58.0 U/L Critically low 73.0-393.0 [facility] Comment on above: Performed By: #### L IPA, CMP, ONNI #### [facility] [address] [place] [address] Dr. Delonte Sparrow PROF 14(COMP METB)on 022 Albumin [Mass/Vol] 3.6 g/dL Normal 3.4-5.0 [facility] Comment on above: Performed By: #### L IPA, CMP, NONI #### [facility] [address] [address] [address] Delonte Sparrow Albumin/Globulin [Mass ratio] 1.0 {ratio} Normal [facility] Comment on above: Performed By: #### L IPA, CMP, NONI #### [facility] [address] [address] [address] Delonte Sparrow ALP [Catalytic activity/Vol] 125 U/L Critically high 46-116 [facility] Comment on above: Performed By: #### L IPA, CMP, NONI #### [facility] [address] [address] [address] Delonte Sparrow ALT [Catalytic activity/Vol] 27 U/L Normal 14-59 [facility] Comment on above: Performed By: #### L IPA, CMP, NONI #### [facility] [address] [address] [address] Delonte Sparrow Anion gap [Moles/Vol] 12.7 mmol/L Normal [facility] Comment on above: Performed By: #### L IPA, CMP, NONI #### [facility] [address] [address] [address] Delonte Sparrow AST [Catalytic activity/Vol] 15 U/L Normal 15-37 [facility] Comment on above: Performed By: #### L IPA, CMP, NONI #### [facility] [address] [address] [address] Delonte Sparrow Bilirubin [Mass/Vol] 0.3 mg/dL Normal 0.2-1.0 [facility] Comment on above: Performed By: #### L IPA, CMP, NONI #### [facility] [address] [address] [address] Delonte Sparrow Calcium [Mass/Vol] 8.2 mg/dL Critically low 8.5-10.1 [facility] Comment on above: Performed By: #### L IPA, CMP, NONI #### [facility] [address] [address] [address] Delonte Sparrow Chloride [Moles/Vol] 103 mmol/L Normal 98-107 [facility] Comment on above: Performed By: #### L IPA, CMP, NONI #### [facility] [address] [address] [address] Delonte Sparrow CO2 [Moles/Vol] 29.2 mmol/L Normal 21.0-32.0 [facility] [place] [facility] Comment on above: Performed By: #### L IPA, CMP, NONI #### [facility] [address] [address] [address] Delonte Sparrow Creatinine [Mass/Vol] 0.81 mg/dL Normal 0.55-1.02 [facility] Comment on above: Performed By: #### L IPA, CMP, NONI #### [facility] [address] [place] [address] Dr. Dleonte Sparrow EGFR-AF KAZAKH >60 Normal >=60 [facility] [place] [facility] Comment on above: Performed By: #### L IPA, CMP, NONI #### [facility] [address] [place] [address] Dr. Delonte Sparrow EGFR-NON AF KAZAKH >60 Normal >=60 [facility] Comment on above: Performed By: #### L IPA, CMP, NONI #### [facility] [address] [place] [address] Dr. Delonte Sparrow Globulin (S) [Mass/Vol] 3.7 g/dL Normal [facility] Comment on above: Performed By: #### L IPA, CMP, NONI #### [facility] [address] [address] [address] Delonte Sparrow Glucose [Mass/Vol] 103 mg/dL Normal 74-106 [facility] Comment on above: Performed By: #### L IPA, CMP, NONI #### [facility] [address] [address] [address] Delonte Sparrow Potassium [Moles/Vol] 3.9 mmol/L Normal 3.5-5.1 [facility] Comment on above: Performed By: #### L IPA, CMP, NONI #### [facility] [address] [address] [address] Delonte Sparrow Protein [Mass/Vol] 7.3 g/dL Normal 6.4-8.2 [facility] Comment on above: Performed By: #### L IPA, CMP, NONI #### [facility] [address] [address] [address] Delonte Sparrow Sodium [Moles/Vol] 141 mmol/L Normal 136-145 [facility] Comment on above: Performed By: #### L IPA, CMP, NONI #### [facility] [address] [place] [address] Dr. Delonte Sparrow Urea nitrogen [Mass/Vol] 16.0 mg/dL Normal 7.0-18.0 [facility] Comment on above: Performed By: #### L IPA, CMP, NONI #### [facility] [address] [address] [address] Delonte Sparrow Urea nitrogen/Creatinine [Mass ratio] 19.8 mg/mg Normal [facility] Comment on above: Performed By: #### L IPA, CMP, NONI #### [facility] [address] [place] [address] Dr. Delonte Awan 06-22-2020 L Specimen: [id number] Received: 06/22/20 Status: DB Black Num: [id number] Spec Type: Surgical Subm Dr: René Holley Jr, DO Tissues: A Small Intestine - Biopsy/Polyp (TERMINAL ILEUM) B Colon - Polyp (RECTOSIGMOID POLYP) Procedures: HE Stain/4, Gross/Micro L4/2 Patient Age/Sex Location Account Attending Physician Malu Steele 55/F [id number] René Holley Jr, DO SPEC NUM: [id number] RECD: 06/22/201 STATUS: DB HERLINDA NUM: [id number] GAVINO: 06/22/20-1247 [facility] DR: René Holley Jr, DO ENTERED: 06/22/205413 [facility] DR: SONYA TYPE: Surgical DEPT: S [...] in one cassette labeled B1. (/YJ) Specimen: [id number] Received: 06/22/20 Status: DB Black Num: [id number] Spec Type: Surgical Subm Dr: René Holley Jr, DO Tissues: A Small Intestine - Biopsy/Polyp (TERMINAL ILEUM) B Colon - Polyp (RECTOSIGMOID POLYP) Procedures: HE Stain/4, Gross/Micro L4/2 Patient: Malu Steele [id number] (Continued) Specimen: [id number] Received: 06/22/20 (Continued) Signed (signature on file) Iveth Patel MD 06/25/20 1528 Specimen: [id number] Received: 06/22/20 Status: DB Black Num: [id number] Spec Type: Surgical Subm Dr: René Holley Jr, DO Tissues: A Small Intestine - Biopsy/Polyp (TERMINAL ILEUM) B Colon - Polyp (RECTOSIGMOID POLYP) Procedures: HE Stain/4, Gross/Micro L4/2 Patient: Malu Steele Christen [id number] (Continued) Specimen: [id number] Received: 06/22/20 (Continued) Microscopic Description A. Two glass slides with H E stained material have been examined. The microscopic findings support the above pathologic diagnosis. B. Two glass slides with H E stained material have been examined. The microscopic findings support the above pathologic diagnosis. CPT Codes 30779?2 Specimen: [id number] Received: 06/22/20 Status: DB Black Num: [id number] Spec Type: Surgical Subm Dr: René Holley Jr, DO Tissues: A Small Intestine - Biopsy/Polyp (TERMINAL ILEUM) B Colon - Polyp (RECTOSIGMOID POLYP) Procedures: HE Stain/4, Gross/Micro L4/2 Patient: Malu Steele [id number] (Continued) Signed (signature on file) Iveth Patel MD 06/25/20 1528 Normal [facility] SARS-CoV-2 (COVID-19) RNA WES+probe Ql (Unsp spec) Negative Normal Negative [facility] Comment on above: Order Comment: 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 This test has not been FDA [...] is terminated or revoked sooner. PERFORMED BY: [place] [address] PATHOLOGIST [employer] WIRER NIALL MILAN M.D. Performed By: #### C OVID-19 [facility] #### [address] COVID-19 Positive/Negativeon 06-20-2020 SARS-CoV-2 (COVID-19) N gene WES+probe Ql (Resp) Negative Negative [facility] Comment on above: Testing for SARS-CoV -2 by RT-PCRThis test was developed and its performance characteristics determined by [employer] ([employer]) and validated at the [facility]. 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 - Endocervical/transfo rmation zone component present. - Scant cellularity, predominantly inflammatory exudate. Descriptive Diagnosis: Negative for intraepithelial lesion or malignancy. Shift in bruce suggestive of bacterial vaginosis. Health Commissioner: HARJIT Valera(ASCP) Electronically Signed Out bessie/04/23/2018 Normal [facility] Comment on above: Performed By: #### P PPVP #### [facility] [address] [place] [address] [id number] [employer] Brushes Assembler: Karthik Lynn MD Vital Signs Date Time Vital Sign Value Performing Clinician Facility 10-07-2022 09:30-0400 Body height 170.18 cm Philippe Wise Other [facility] Other 10-07-2022 09:30-0400 Body mass index (BMI) [Ratio] 34.45 kg/m2 Philippe Wise Other [employer] Other 10-07-2022 09:30-0400 Body weight 99.79 kg Philippe Esterrosalie Other [employer] Other 10-07-2022 09:30-0400 Diastolic blood pressure 83 mm[Hg] Philippe Esterrosalie Other [employer] Other 10-07-2022 09:30-0400 Systolic blood pressure 139 mm[Hg] Philippe Wise Other [employer] Other 08-29-2021 12:00-0400 Body height 170.18 cm René Holley Other [employer] Other 08-29-2021 12:00-0400 Body mass index (BMI) [Ratio] 35.55 kg/m2 René Holley Other [employer] Other 08-29-2021 12:00-0400 Body weight 102.97 kg René Holley Other [employer] Other 08-29-2021 12:00-0400 Diastolic blood pressure 89 mm[Hg] René Holley Other [employer] Other 08-29-2021 12:00-0400 Systolic blood pressure 142 mm[Hg] René Holley Other [employer] Other Encounters Encounter Date Encounter Type Care Provider Facility Start: 10-07-2022 End: 10-07-2022 ambulatory Philippe Wise Other [employer] Other Start: 10-07-2022 Patient encounter procedure Philippe Wise [facility] Start: 07-07-[address] KAYY PANIAGUA . Facili ty:[facility] Start: 06-12-2022 End: 06-13-[address] KAYY PANIAGUA . Facility:[facility] Start: 08-29-2021 End: 08-29-2021 ambulatory René Holley Other [employer] Other Start: 08-29-2021 Office outpatient vi sit 25 minutes René Holley [facility] Start: 08-21-2021 End: 08-22-[address] KAYY PANIAGUA . Facility:[facility] Start: 06-20-2020 End: 06-20-2020 Patient encounter procedure Nader Kayy Paniagua Work Phone: -Pre-Surgical Testing Start: 04-12-2018 Encounter for gynecological examination (general) (routine) without abnormal findings [facility] Start: 04-12-2018 End: 04-13-2018 Patient encounter procedure [facility] Procedures Date Procedure Procedure Detail Performing Clinician Start: 04-12-2018 Screen pap by gisela cleveland md supv [facility] Payers Date Payer Category Payer Unknown [id number] 1965 Unknown [id number] 1965 Unknown [id number] 1965 Unknown [id number] 1958 Private Health Insurance [id number] Self-pay [employer] [id number] Unknown [employer] [id number] Social History Date Type Detail Facility Start: 11-03-2018 Tobacco smoking status NHIS Ex-smoker (finding) [facility] Start: 1965 Sex Assigned At Female F [facility] Sex Assigned At Sex Assigned At Bir th [employer] Other Goals Date Patient Goal Desired Activity [...] Patient can restart dicyclomine 20mg TID PRN. [employer] Other Evaluation note 08-29-2021 Note Date & Type Note Facility 08-29-2021 Evaluation note Encounter Date Diagnosis Assessment Notes Aug, Crohns disease (ICD-10 - K50.90) Aug, Viral gastroenteritis (ICD-10 - A08.4) Continue prednisone as prescribed by PCP Start Cipro 500mg bid for 7 days Patient to call when she finished prednisone and cipro if symptoms do not improve. Follow up in 4 weeks. [employer] Other History general Narrative - Reported 07-24-2020 Note Date & Type Note Facility 07-24-2020 History general N arrative - Reported Type Medical History Crohns disease Surgical History C section X2 Surgical History hysterectomy 07/2020 [facility] [facility] Other Evaluation note Note Date & Type Note Facility Evaluation note No Assessments Information Avail able [facility] Summary Purpose Family History Relationship Condition [...] DATE CREATED AUTHOR AUTHOR'S ORGANIZ ATION 04/04/2021 [facility] DATE CREATED AUTHOR AUTHOR'S ORGANIZ ATION 07/07/2022 [facility] REASON FOR VISIT (unrecogniz ed [...] BE BASED ON THE PRIMARY CLINICAL RECORDS. [employer] [facility]. provides no warranty or guarantee of the accuracy or completeness of information in this document.
[2023-03-04 14:01] LABS: Magnesium 2.4 mg/dL (1.8-2.4); Thyroid Stimulating Hormone 2.164 uIU/mL (0.358-3.740)
[2023-03-04 14:02] LABS: Lactate/Lactic Acid 4.4 mmol/L (0.4-2.0)
[2023-03-04 14:10] LABS: SARS-CoV-2 Ag NEGATIVE (NEGATIVE)
[2023-03-04 15:01] LABS: Troponin I High Sensitivity 29.7 pg/mL (4.0-51.3)
[2023-03-04] MEDS: DILTIAZEM HCL 60 MG TABLET PO ×3 (15:15→21:26)
[2023-03-04] MEDS: LACTATED RINGER'S SOLUTION 1,000 ML 100 ML IV (15:15)
[2023-03-04] MEDS: CEFTRIAXONE 1,000 MG in 0.9 % SODIUM CHLORIDE 50 ML 100 MG IV (15:15)
[2023-03-04 16:51] LABS: Bilirubin Urine NEGATIVE (NEGATIVE); Blood Urine NEGATIVE (NEGATIVE); Color Urine YELLOW (YELLOW); Glucose Urine UA NEGATIVE (NEGATIVE); Ketones Urine NEGATIVE (NEGATIVE); Leukocyte Esterase Urine NEGATIVE (NEGATIVE); Nitrite Urine POSITIVE (NEGATIVE); Protein Urine TRACE mg/dL (NEG/TRACE); Specific Gravity Urine <=1.005 (1.005-1.025); Urobilinogen Urine 0.2 EU/dL (0.2-1.0); pH Urine 7.5 (5.0-9.0)
[2023-03-04 16:54] LABS: Clarity Urine SLIGHTLY CLOUDY (CLEAR); Urine Microscopic Indicated YES
[2023-03-04 17:02] LABS: Bacteria Urine TRACE #/HPF (NONE SEEN); Cast Seen? NONE SEEN #/LPF (NONE SEEN); Crystals Seen? None Seen #/HPF (None Seen); Mucus Urine NONE SEEN (NONE SEEN); RBC Urine NONE SEEN #/HPF (0-2); Squamous Epithelial Cell Urine RARE #/LPF (NONE/RARE); Urine Culture Indicated YES; WBC Urine NONE SEEN #/HPF (NONE SEEN)
[2023-03-04 18:30] LABS: Troponin I High Sensitivity 41.6 pg/mL (4.0-51.3)
[2023-03-04 18:34] LABS: Lactate/Lactic Acid 3.1 mmol/L (0.4-2.0)
--- NOTE | 2023-03-04 18:49 | P.HP_ITS ---
H&P: HPI History of Present Illness Chief complaint: SHORTNESS OF BREATH/CHEST PAIN Narrative: Patient presented to the emergency room with increasing shortness of breath in ER found to have acute atrial fibrillation with rapid ventricular response. Also leukocytosis and positive lactate. Patient has been ill recently. She was suspected of having COVID-19 if she had all the symptoms and were exposed on 2 occasions close together. Patient admitted to ICU on Cardizem drip, Review of Systems ROS Status of ROS 10 or more systems reviewed and unremark able except as noted in history and below PFSH PFSH Social History Highest level of school completed/degree received: Associate degree: occupational, technical, vocational program Meds Home Medications and Allergies Allergies Allergy/AdvReac Type Severity Reaction Status Date / Time codeine Allergy Hives Verified 03/04/23 11:03 Exam Constitutional Vital Signs, click to edit/add: Last Vital Signs Temp 97.5 F L 03/04/23 16:56 Pulse 88 03/04/23 18:00 Resp 19 03/04/23 17:45 BP 146/86 H 03/04/23 16:31 Pulse Ox 98 03/04/23 15:15 O2 Del Method Nasal Cannula 03/04/23 13:51 O2 Flow Rate 2 03/04/23 13:51 Documenting provider has reviewed patient's vital signs: yes Common normals: no apparent distress [facility] Common normals: normocephalic and head/scalp atraumatic Chest Common normals: inspection of chest normal and palpation of chest normal Respiratory Common normals: normal respiratory effort Cardio Rate: tachycardic Rhythm: abnormal rhythm GI Common normals: Normal to inspection, nondistended, normoactive bowel sounds present Results Labs Labs: Short CBC 03/04/23 Range/Units 11:15 WBC 16.8 H (4.0-11.0) 10^3/uL Hgb 16.2 H (12.0-16.0) g/dL Hct 50.5 H (36.0-48.0) % Plt Count 327 (150-450) 10^3/uL BMP 03/04/23 11:15 Sodium 137 Potassium 3.5 Chloride 97 L Carbon Dioxide 27.7 BUN 13.0 Creatinine 0.94 Glucose 140 H Calcium 8.2 L Liver Function 03/04/23 Range/Units 11:15 Total Bilirubin 0.5 (0.2-1.0) mg/dL AST 24 (15-37) U/L ALT 64 H (14-59) U/L Alkaline Phosphatase 100 (46-116) U/L Albumin 3.1 L (3.4-5.0) g/dL Urine 03/04/23 Range/Units 16:33 Urine Color Yellow (YELLOW) Urine Clarity Slightly cloudy A (CLEAR) Urine pH 7.5 (5.0-9.0) Ur Specific [place] <=1.005 A (1.005-1.025) Urine Protein Trace (NEG/TRACE) mg/dL Urine Glucose (UA) Negative (NEGATIVE) mg/dL Assessment and Plan Assessment and Plan (1) Atrial fibrillation, new onset: Plan Tachycardia and respiratory distress secondary to acute onset of atrial fibrillation with rapid ventricular response. Check serial labs and echocardiogram. Patient started on Cardizem drip in ER. Will try to wean that by starting oral Cardizem. Try to wean off of the Cardizem drip. Start Eliquis for stroke prevention. Consult to cardiology. Leukocytosis and positive lactate-will start IV antibiotics. Chest x-ray is clear but urine does show positive nitrates so possible source of infection. Elevated hemoglobin-may be a sign of dehydration-monitor daily Mild protein calorie malnutrition-diet supplement Currently maintain patient as an observation status. If converts overnight her rate controlled she could be discharged home tomorrow. Better than 50% chance of that happening
[2023-03-04] MEDS: APIXABAN 5 MG TABLET PO (21:26)
[2023-03-04] MEDS: ACETAMINOPHEN 500 MG TABLET 1000 MG PO (21:27)
[2023-03-05] VITALS (29 sets, daily range): BP systolic 89–110; BP diastolic 64–74; PULSE 65–126; RESP 12–32; TEMP 36.7–36.9; O2SAT 96–99
[2023-03-05] MEDS: LACTATED RINGER'S SOLUTION 1,000 ML 100 ML IV (00:41)
[2023-03-05 05:06] LABS: Basophils Percent Auto 0.2 % (0.2-2.0); Eosinophils Absolute Auto 0.4 10^3/uL (0.0-0.7); Eosinophils Percent Auto 3.2 % (0.9-7.0); Hematocrit 40.8 % (36.0-48.0); Hemoglobin 12.9 g/dL (12.0-16.0); Immature Granulocytes Abs Auto 1.11 10^3/uL (0.00-0.03); Immature Granulocytes Pct Auto 8.8 % (0.0-0.5); Lymphocytes Absolute Auto 3.8 10^3/uL (1.2-3.8); Lymphocytes Percent Auto 29.8 % (20.5-60.0); Mean Corpuscular HGB Conc 31.6 g/dL (29.9-35.2); Mean Corpuscular Hemoglobin 24.9 pg (26.7-34.0); Mean Corpuscular Volume 78.8 fL (81.0-99.0); Mean Platelet Volume 10.9 fL (9.5-13.5); Monocytes Absolute Auto 1.2 10^3/uL (0.3-0.8); Monocytes Percent Auto 9.3 % (1.7-12.0); Neutrophils Absolute Auto 6.2 10^3/uL (1.4-6.5); Neutrophils Percent Auto 48.7 % (43.0-75.0); Platelet Count 237 10^3/uL (150-450); Red Blood Count 5.18 10^6/uL (4.20-5.40); Red Cell Distribution Width 14.4 % (11.0-15.0); White Blood Count 12.7 10^3/uL (4.0-11.0)
[2023-03-05 05:07] LABS: Alanine Aminotransferase 47 U/L (14-59); Albumin Globulin Ratio 0.7; Albumin Level 2.4 g/dL (3.4-5.0); Alkaline Phosphatase 79 U/L (46-116); Anion Gap 9.2; Aspartate Amino Transferase 22 U/L (15-37); BUN Creatinine Ratio 17.3; Bilirubin Total 0.4 mg/dL (0.2-1.0); Carbon Dioxide 28.8 mmol/L (21.0-32.0); Chloride 105 mmol/L (98-107); Estimated GFR (African America >60 (>=60); Estimated GFR (Non-African Ame >60 (>=60); Globulin 3.6 g/dL; Glucose 127 mg/dL (74-106); Magnesium 2.4 mg/dL (1.8-2.4); Sodium 140 mmol/L (136-145)
[2023-03-05 06:59] LABS: Hematocrit 41.1 % (36.0-48.0); Hemoglobin 12.9 g/dL (12.0-16.0); Mean Corpuscular HGB Conc 31.4 g/dL (29.9-35.2); Mean Corpuscular Hemoglobin 24.8 pg (26.7-34.0); Platelet Count 213 10^3/uL (150-450); Red Cell Distribution Width 14.6 % (11.0-15.0); White Blood Count 10.9 10^3/uL (4.0-11.0)
[2023-03-05] MEDS: POTASSIUM CHLORIDE 40 MEQ in 0.9 % SODIUM CHLORIDE 250 ML 67.5 MEQ IV (07:20)
[2023-03-05] MEDS: APIXABAN 5 MG TABLET PO (08:33)
[2023-03-05] MEDS: POTASSIUM CHLORIDE 10 MEQ ER TABLET 20 MEQ PO (08:33)
[2023-03-05] MEDS: DILTIAZEM HCL 120 MG CAP.ER.24H PO (08:33)
[2023-03-05] MEDS: LEVOFLOXACIN IN DEXTROSE 5 % 750 MG/150 ML IV.SOLN 100 MG IV (08:34)
--- NOTE | 2023-03-05 09:24 | P.DS_ITS ---
DS: Providers Provider Date of admission: 03/04/23 11:34 Primary care physician: Brett Paniagua MD Consults: 03/04/23 13:00 Consult to Cardiology Routine Reason for consultation: afib Has provider been notified: No DS: Diagnosis Discharge Diagnosis (1) Atrial fibrillation, new onset: Assessment and plan: Tachycardia and respiratory distress secondary to acute onset of atrial fibrillation with rapid ventricular response. Leukocytosis and positive lactate Elevated hemoglobin- Mild protein calorie malnutrition- DS: Summary Hospital Course Hospital Course: Patient has been ill for probably the last 10 days, suspected of having COVID recently, treated for that. Presented to the emergency with increasing shortness of breath. Found to have atrial fibrillation with rapid ventricular response. Given Cardizem in ER and she did feel improvement with her dyspnea. Patient transferred to the intensive care unit on a Cardizem drip. Denies UTI symptoms, see UA results low. Does have a cough but that is been lingering since the presumed COVID episode and positive lactic acidosis likely secondary to the A-fib with rapid ventricular response all we will send patient home on antibiotics. Culture pending for UA. Started patient on Eliquis and Cardizem long-acting. Consult to cardiology, review echocardiogram when completed. Atrial size will have an impact in her future treatment plan. Follow-up with cardiology at discharge. She can follow-up with me as needed.. Time Spent with Patient Time attestation: Total time spent providing and/or coordinating discharge services: Exam Constitutional Vital Signs, click to edit/add: Last Vital Signs Temp 98.2 F 03/05/23 07:36 Pulse 88 03/05/23 08:45 Resp 16 03/05/23 07:36 BP 102/74 03/05/23 07:36 Pulse Ox 98 03/05/23 07:36 O2 Del Method Room Air 03/05/23 07:36 O2 Flow Rate 2 03/04/23 13:51 Documenting provider has reviewed patient's vital signs: yes Common normals: no apparent distress [facility] Common normals: normocephalic and head/scalp atraumatic Chest Common normals: inspection of chest normal and palpation of chest normal Respiratory Common normals: normal respiratory effort Cardio Rate: tachycardic Rhythm: abnormal rhythm GI Common normals: Normal to inspection, nondistended, normoactive bowel sounds present DS: Data Data Completed and Pending Labs on day of discharge: Labs from last 24 hours 03/05/23 03/05/23 03/04/23 06:53 04:10 21:02 WBC 10.9 12.7 H RBC 5.20 5.18 Hgb 12.9 12.9 Hct 41.1 40.8 MCV 79.0 L 78.8 L MCH 24.8 L 24.9 L MCHC 31.4 31.6 RDW 14.6 14.4 Plt Count 213 237 MPV 10.0 10.9 Neut % (Auto) 48.7 Lymph % (Auto) 29.8 [place] % (Auto) 9.3 Eos % (Auto) 3.2 Baso % (Auto) 0.2 Neut # (Auto) 6.2 Lymph # (Auto) 3.8 [place] # (Auto) 1.2 H Eos # (Auto) 0.4 Baso # (Auto) 0.0 Abs Immat Gran (auto) 1.11 H Seg Neuts % (Manual) Band Neutrophils % Lymphocytes % (Manual) Atypical Lymphs % (Man) Monocytes % (Manual) Eosinophils % (Manual) Basophils % (Manual) Imm/Tot Granulo (auto) 8.8 H Neutrophils # (Manual) Band Neutrophils # Lymphocytes # (Manual) Abs Atypical Lymphs Man Monocytes # (Manual) Eosinophils # (Manual) Basophils # (Manual) PT INR Sodium 140 Potassium 3.0 L Chloride 105 Carbon Dioxide 28.8 Anion Gap 9.2 BUN 13.0 Creatinine 0.75 Est GFR ( Amer) >60 Est GFR (Non-Af Amer) >60 BUN/Creatinine Ratio 17.3 Glucose 127 H Lactate 3.0 H* Calcium 8.0 L Magnesium 2.4 Total Bilirubin 0.4 AST 22 ALT 47 Alkaline Phosphatase 79 Troponin I High Sens NT-Pro-B Natriuret Pep Total Protein 6.0 L Albumin 2.4 L Globulin 3.6 Albumin/Globulin Ratio 0.7 TSH Thyroxine (T4) Free T3 Urine Color Urine Clarity Urine pH Ur Specific [place] Urine Protein Urine Glucose (UA) Urine Ketones Urine Occult Blood Urine Nitrite Urine Bilirubin Urine Urobilinogen Ur Leukocyte Esterase Urine RBC Urine WBC Ur Squamous Epith Cells Urine Crystals Urine Bacteria Urine Casts Urine Mucus Ur Culture Indicated? Influenza Type A Ag Influenza Type B Ag SARS-CoV-2 Ag (CV2AG) 03/04/23 03/04/23 03/04/23 17:55 17:46 16:33 WBC RBC Hgb Hct MCV MCH MCHC RDW Plt Count MPV Neut % (Auto) Lymph % (Auto) [place] % (Auto) Eos % (Auto) Baso % (Auto) Neut # (Auto) Lymph # (Auto) [place] # (Auto) Eos # (Auto) Baso # (Auto) Abs Immat Gran (auto) Seg Neuts % (Manual) Band Neutrophils % Lymphocytes % (Manual) Atypical Lymphs % (Man) Monocytes % (Manual) Eosinophils % (Manual) Basophils % (Manual) Imm/Tot Granulo (auto) Neutrophils # (Manual) Band Neutrophils # Lymphocytes # (Manual) Abs Atypical Lymphs Man Monocytes # (Manual) Eosinophils # (Manual) Basophils # (Manual) PT INR Sodium Potassium Chloride Carbon Dioxide Anion Gap BUN Creatinine Est GFR ( Amer) Est GFR (Non-Af Amer) BUN/Creatinine Ratio Glucose Lactate 3.1 H* Calcium Magnesium Total Bilirubin AST ALT Alkaline Phosphatase Troponin I High Sens 41.6 NT-Pro-B Natriuret Pep Total Protein Albumin Globulin Albumin/Globulin Ratio TSH Thyroxine (T4) Free T3 Urine Color Yellow Urine Clarity Slightly cloudy A Urine pH 7.5 Ur Specific [place] <=1.005 A Urine Protein Trace Urine Glucose (UA) Negative Urine Ketones Negative Urine Occult Blood Negative Urine Nitrite Positive A Urine Bilirubin Negative Urine Urobilinogen 0.2 Ur Leukocyte Esterase Negative Urine RBC None seen Urine WBC None seen Ur Squamous Epith Cells Rare Urine Crystals None seen Urine Bacteria Trace A Urine Casts None seen Urine Mucus None seen Ur Culture Indicated? Yes Influenza Type A Ag Influenza Type B Ag SARS-CoV-2 Ag (CV2AG) 03/04/23 03/04/23 03/04/23 14:22 13:25 12:20 WBC RBC Hgb Hct MCV MCH MCHC RDW Plt Count MPV Neut % (Auto) Lymph % (Auto) [place] % (Auto) Eos % (Auto) Baso % (Auto) Neut # (Auto) Lymph # (Auto) [place] # (Auto) Eos # (Auto) Baso # (Auto) Abs Immat Gran (auto) Seg Neuts % (Manual) Band Neutrophils % Lymphocytes % (Manual) Atypical Lymphs % (Man) Monocytes % (Manual) Eosinophils % (Manual) Basophils % (Manual) Imm/Tot Granulo (auto) Neutrophils # (Manual) Band Neutrophils # Lymphocytes # (Manual) Abs Atypical Lymphs Man Monocytes # (Manual) Eosinophils # (Manual) Basophils # (Manual) PT INR Sodium Potassium Chloride Carbon Dioxide Anion Gap BUN Creatinine Est GFR ( Amer) Est GFR (Non-Af Amer) BUN/Creatinine Ratio Glucose Lactate Calcium Magnesium Total Bilirubin AST ALT Alkaline Phosphatase Troponin I High Sens 29.7 NT-Pro-B Natriuret Pep Total Protein Albumin Globulin Albumin/Globulin Ratio TSH Thyroxine (T4) Free T3 Urine Color Urine Clarity Urine pH Ur Specific [place] Urine Protein Urine Glucose (UA) Urine Ketones Urine Occult Blood Urine Nitrite Urine Bilirubin Urine Urobilinogen Ur Leukocyte Esterase Urine RBC Urine WBC Ur Squamous Epith Cells Urine Crystals Urine Bacteria Urine Casts Urine Mucus Ur Culture Indicated? Influenza Type A Ag Negative Influenza Type B Ag Negative SARS-CoV-2 Ag (CV2AG) Negative 03/04/23 11:15 WBC 16.8 H RBC 6.48 H Hgb 16.2 H Hct 50.5 H MCV 77.9 L MCH 25.0 L MCHC 32.1 RDW 15.6 H Plt Count 327 MPV 10.3 Neut % (Auto) Lymph % (Auto) [place] % (Auto) Eos % (Auto) Baso % (Auto) Neut # (Auto) Lymph # (Auto) [place] # (Auto) Eos # (Auto) Baso # (Auto) Abs Immat Gran (auto) Seg Neuts % (Manual) 51.0 Band Neutrophils % 2.0 Lymphocytes % (Manual) 37.0 Atypical Lymphs % (Man) 5.0 Monocytes % (Manual) 4.0 Eosinophils % (Manual) 1.0 Basophils % (Manual) 0.0 L Imm/Tot Granulo (auto) Neutrophils # (Manual) 8.56 H Band Neutrophils # 0.3 Lymphocytes # (Manual) 6.21 H Abs Atypical Lymphs Man 0.84 Monocytes # (Manual) 0.67 Eosinophils # (Manual) 0.16 Basophils # (Manual) 0.00 PT 10.0 INR 0.94 Sodium 137 Potassium 3.5 Chloride 97 L Carbon Dioxide 27.7 Anion Gap 15.8 BUN 13.0 Creatinine 0.94 Est GFR ( Amer) >60 Est GFR (Non-Af Amer) >60 BUN/Creatinine Ratio 13.8 Glucose 140 H Lactate 4.4 H* Calcium 8.2 L Magnesium 2.4 Total Bilirubin 0.5 AST 24 ALT 64 H Alkaline Phosphatase 100 Troponin I High Sens 14.7 NT-Pro-B Natriuret Pep 515.0 Total Protein 7.7 Albumin 3.1 L Globulin 4.6 Albumin/Globulin Ratio 0.7 TSH 2.164 Thyroxine (T4) 9.70 Free T3 2.70 Urine Color Urine Clarity Urine pH Ur Specific [place] Urine Protein Urine Glucose (UA) Urine Ketones Urine Occult Blood Urine Nitrite Urine Bilirubin Urine Urobilinogen Ur Leukocyte Esterase Urine RBC Urine WBC Ur Squamous Epith Cells Urine Crystals Urine Bacteria Urine Casts Urine Mucus Ur Culture Indicated? Influenza Type A Ag Influenza Type B Ag SARS-CoV-2 Ag (CV2AG) Discharge Plan Discharge Disposition: Home, Self-Care Discharge Medications: New cefdinir 300 mg capsule 600 mg PO DAILY Qty: 20 0RF Eliquis 5 mg Tablet 5 mg PO BID Qty: 60 11RF diltiazem HCl [Cardizem CD] 120 mg capsule,extended release 24hr 120 mg PO DAILY Qty: 30 11RF Activity: resume usual activities as tolerated Diet: regular diet Patient Instructions: Diltiazem (By mouth) (Cardizem, Cardizem CD, Cardizem LA, Cardizem SR), Cefdinir (By mouth), Apixaban (By mouth), A-fib (Atrial Fibrillation) (DC) Forms: Portal Instructions Follow Up Appointments: Dr Arcelia Salazar Mar 09 11:15am. [facility] cardiology [place] office Mar 30 at 11am
--- NOTE | 2023-03-05 09:29 | CM.NOTE ---
Discussed with patient about Eliquis at discharge, education provided and pt given 30day free trial and 10 dollar copay card. Pt verbalizes understanding of importance of Eliquis. Cardiology also to see pt prior to discharge to home.
[2023-03-05 09:58] LABS: Adenovirus NOT DETECTED (NOT DETECTE); Bordetella parapertussis NOT DETECTED (NOT DETECTE); Coronavirus 229E NOT DETECTED (NOT DETECTE); Coronavirus HKU1 NOT DETECTED (NOT DETECTE); Coronavirus NL63 NOT DETECTED (NOT DETECTE); Coronavirus OC43 NOT DETECTED (NOT DETECTE); Human Metapneumovirus NOT DETECTED (NOT DETECTE); Human Rhinovirus/Enterovirus NOT DETECTED (NOT DETECTE); Influenza A NOT DETECTED (NOT DETECTE); Influenza B NOT DETECTED (NOT DETECTE); Mycoplasma pneumoniae NOT DETECTED (NOT DETECTE); Parainfluenza Virus 1 NOT DETECTED (NOT DETECTE); Parainfluenza Virus 2 NOT DETECTED (NOT DETECTE); Parainfluenza Virus 3 NOT DETECTED (NOT DETECTE); Parainfluenza Virus 4 NOT DETECTED (NOT DETECTE); Respiratory Syncytial Virus NOT DETECTED (NOT DETECTE); SARS-CoV-2 NOT DETECTED (NOT DETECTE)
--- NOTE | 2023-03-05 12:04 | CA_ITS ---
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: : 1965 Requested By: Ashley Paz Order Number: [id number] Reading MD: HANNA JOHNSON Interpretive Statements The predominant rhythm is sinus with an episode of atrial fibrillation Tachycardia - max rate of 187 bpm (atrial fib) - 33 episodes of PSVT with longest episode of 15 beats Bradycardia - min 52 bpm Ventricular ectopy - 280 total (<1%) - 261 PVC - 16 couplets NSVT - 1 episodes of 3 beat VT Patient triggered events:2 - associated with lightheadedness, palpitation - associated with rates of 105, 128 and 100 bpm w/ remainder NSR Atrial fibrillation (8% burden) - longest episode of 22h 37min 32sec - fastest rate of 187 bpm Impression: The predominant rhythm is sinus with episodes of atrial fibrillation Fastest rate of 187 bpm (atrial fib) and slowest rate of 52 bpm 261 PVC and 16 couplets 1 episodes of 3 beat VT Atrial fibrillation w/ 8% burden and fastest rate of 187 bpm No blocks or pauses Electronically Signed On 04-07-2023 7:06:17 EST by HANNA JOHNSON
--- NOTE | 2023-03-05 12:18 | PM.CACN ---
History of Present Illness History of Present Illness Consult date: 03/05/23 Requesting physician: Brett Paniagua Consult reason: atrial fibrillation Chief complaint: SHORTNESS OF BREATH/CHEST PAIN Narrative: Patient is a 58 y/o F with no known significant medial history who presented to the ER with c/o worsening SOB, fatigue and chest pain. She reports starting 2 weeks prior having sx's of an upper respiratory infection. Upon presentation to the ER she was found to be in a.fib with RVR. Her WBCs were elevated along with an elevated lactate. Source of infection was investigated, possible source is UTI which she is being treated for. She underwent a chest CTA which was negative for PE. She underwent an ECHO which showed preserved LV function with biatrial enlargement. Today she reports feeling better. She is no longer having SOB. She denies CP, dizziness/LH, palpitations. She denies any significant family hx of heart issues. Review of Systems ROS Status of ROS 10 or more systems reviewed and unremarkable except as noted in history and below Constitutional Reports: fatigue Cardiovascular Reports: chest pain Respiratory Reports: shortness of breath PFSH PFSH Social History Highest level of school completed/degree received: Associate degree: occupational, technical, vocational program Meds Home Medications and Allergies Home Medications Medication Instructions Recorded Confirmed Type apixaban 5 mg tablet (Eliquis) 5 mg PO BID #60 tabs 03/05/23 Rx cefdinir 300 mg capsule 600 mg (2 x 300 mg) PO DAILY #20 03/05/23 Rx caps diltiazem HCl 120 mg 120 mg PO DAILY #30 caps 03/05/23 Rx capsule,extended release 24 hr (Cardizem CD) Allergies Allergy/AdvReac Type Severity Reaction Status Date / Time codeine Allergy Hives Verified 03/04/23 11:03 Exam Constitutional Vital Signs, click to edit/add: Last Vital Signs Temp 98.0 F 03/05/23 11:31 Pulse 77 03/05/23 11:53 Resp 16 03/05/23 11:53 BP 110/72 03/05/23 11:31 Pulse Ox 99 03/05/23 12:05 O2 Del Method Room Air 03/05/23 12:05 O2 Flow Rate 2 03/04/23 13:51 Common normals: no apparent distress, oriented x3, no limitations, alert and well nourished [facility] Common normals: normocephalic and head/scalp atraumatic Nose: external nose normal Eye Common normals: EOMs intact bilaterally and conjunctivae normal Neck & C-Spine Common normals: full ROM, supple and no JVD Chest Common normals: inspection of chest normal Respiratory Common normals: normal respiratory effort, no retractions, no use of accessory muscles and clear to auscultation bilaterally Cardio Common normals: no JVD, S1 normal heart sound, S2 normal heart sound, no murmurs and peripheral pulses 2+ throughout Rhythm: abnormal rhythm irregularly irregular GI Common normals: Normal to inspection, nondistended, normoactive bowel sounds present Extremity Common normals: normal to inspection, no clubbing, cyanosis or edema and no pedal edema Neuro Common normals: oriented x3, CN's II-XII intact bilaterally and moves all extremities Psych Common normals: mental status grossly normal, thought process normal and cooperative Results Labs and Meds Lab results: Cardiac Enzymes 03/05/23 Range/Units 04:10 AST 22 (15-37) U/L CBC 03/05/23 03/05/23 Range/Units 04:10 06:53 WBC 12.7 H 10.9 (4.0-11.0) 10^3/uL RBC 5.18 5.20 (4.20-5.40) 10^6/uL Hgb 12.9 12.9 (12.0-16.0) g/dL Hct 40.8 41.1 (36.0-48.0) % Plt Count 237 213 (150-450) 10^3/uL Neut # (Auto) 6.2 (1.4-6.5) 10^3/uL Lymph # (Auto) 3.8 (1.2-3.8) 10^3/uL [place] # (Auto) 1.2 H (0.3-0.8) 10^3/uL Eos # (Auto) 0.4 (0.0-0.7) 10^3/uL Baso # (Auto) 0.0 (0.0-0.1) 10^3/uL Comprehensive Metabolic Panel 03/05/23 Range/Units 04:10 Sodium 140 (136-145) mmol/L Potassium 3.0 L (3.5-5.1) mmol/L Chloride 105 (98-107) mmol/L Carbon Dioxide 28.8 (21.0-32.0) mmol/L BUN 13.0 (7.0-18.0) mg/dL Creatinine 0.75 (0.55-1.02) mg/dL Glucose 127 H (74-106) mg/dL Calcium 8.0 L (8.5-10.1) mg/dL AST 22 (15-37) U/L ALT 47 (14-59) U/L Alkaline Phosphatase 79 (46-116) U/L Total Protein 6.0 L (6.4-8.2) g/dL Albumin 2.4 L (3.4-5.0) g/dL Intake and Output 03/04/23 03/05/23 03/05/23 23:59 07:59 15:59 Intake Total 41.000 / 1048.681 8147.333 / 1640.000 420 / 420 Balance 41.000 / 9718.363 0060.333 / 1640.000 420 / 420 Intake: IV 41.000 / 1348.976 4145.333 / 1640.000 420 / 420 Lactated Ringer's Solution 1, 1538.333 / 1538.333 000 ml @ 100 mls/hr IV .Q10H [facility] Rx#:[id number] Levofloxacin in Dextrose 5 % 150 / 150 750 mg In 150 ml @ 100 mls/hr IV Q24H [facility] Rx#:[id number] Potassium Chloride 40 meq In 0. 270 / 270 9 % Sodium Chloride 250 ml @ 67 .5 mls/hr IV Q6H PRN Rx#: [id number] dilTIAZem HCL 125 mg In 0.9 % 41.000 / 51.667 Sodium Chloride 100 ml @ 1 mls/ hr IV Q12H [facility] Rx#:[id number] Imaging and Cardiology Echo: report reviewed (Preserved LVEF, biatrial dilatation, no significant valve abnormalities) ECG results: image reviewed EKG Interpretation ECG shows: atrial fibrillation Assessment and Plan Assessment and Plan (1) Atrial fibrillation, new onset: Plan 1. Patient has new onset of a.fib in the setting of infection. At this time, recommend rate control with plans to proceed with a cardioversion as an outpatient if she hasn't already self converted once her infection resolves. 2. Continue diltiazem 120mg PO daily. 3. [id number] = 1 (female) - Agree with Eliquis 5mg BID for stroke prophylaxis with plans for future cardioversion. 4. Ordered for holter monitor to assess a.fib burden. 5. Discuss stress test as an outpatient for consideration of starting an antiarrhythmic such as flecainide. 6. Follow-up with [facility] 2-4 weeks after discharge. Appt made for 03/30/2023 at 11am. Please call if any questions or concerns. Thanks! Ashley Paz APRN-[employer] MANAGER [facility]
[2023-03-05] MEDS: CEFTRIAXONE 1,000 MG in 0.9 % SODIUM CHLORIDE 50 ML 50 MG IV (12:23)
--- NOTE | 2023-03-06 13:43 | CM.DCFOLLOWU ---
Person spoke with: patient How are you feeling? well How is your pain? no pain at this time Did you understand your discharge instructions? yes, had to set alarm to start taking meds at same time everyday Do you have any questions about your discharge instructions? no Were you given any prescriptions at discharge? yes Were you able to get your prescriptions filled? yes Do you understand how to take your medications as ordered? yes Do you have any questions about your follow up appointment and do you plan to keep your follow up appointment? no questions, follow ups still at same times Is there anything else that you would like to discuss? no Questions/Comments/Concerns/Other:
== END 2023-03-05 13:39 | disposition home or self-care (01) ==
LOC: ER 13:19 → ICU 13:41
PROVIDERS: Admitting Provider Family Medicine; Emergency Provider Emergency Medicine Emergency Medical Services; PCP Family Medicine; Visit Provider Family Medicine
DX: I48.91 Unspecified atrial fibrillation (principal); R00.0 Tachycardia, unspecified; R06.03 Acute respiratory distress; D72.829 Elevated white blood cell count, unspecified; R79.89 Other specified abnormal findings of blood chemistry; N39.0 Urinary tract infection, site not specified; B96.20 Unspecified Escherichia coli [E. coli] as the cause of diseases classified elsewhere; D75.1 Secondary polycythemia; E44.1 Mild protein-calorie malnutrition; Z20.822 Contact with and (suspected) exposure to COVID-19; Z68.32 Body mass index [BMI] 32.0-32.9, adult
CPT/HCPCS: 0202U; 36415; 71045; 71275; 80053; 81001; 83605; 83735; 83880; 84436; 84443; 84481; 84484; 85007; 85025; 85027; 85610; 87086; 87150; 87186; 87635; 87798; 87804; 87811; 93005; 93246; 93306; 94667; 94668; 94761; 96365; 96366; 96367; 96368; 96372; 96375; 99285; G0328; G0378; J0696; J1650; J3480; Q9967

== ENCOUNTER 2023-03-24 08:38 | Outpatient (OUT) | payer OTHER, SELFPAY ==
[2023-03-24 16:56] LABS: Bilirubin Urine NEGATIVE (NEGATIVE); Blood Urine LARGE (NEGATIVE); Clarity Urine CLEAR (CLEAR); Color Urine YELLOW (YELLOW); Glucose Urine UA NEGATIVE (NEGATIVE); Ketones Urine TRACE mg/dL (NEGATIVE); Leukocyte Esterase Urine SMALL (NEGATIVE); Nitrite Urine NEGATIVE (NEGATIVE); Protein Urine 30 mg/dL (NEG/TRACE); Specific Gravity Urine >=1.030 (1.005-1.025); Urobilinogen Urine 0.2 EU/dL (0.2-1.0); pH Urine 5.5 (5.0-9.0)
[2023-03-24 16:57] LABS: Internal Control Within Normal Limits; Strep A Antigen Screen Positive
[2023-03-24 17:06] LABS: Alanine Aminotransferase 23 U/L (14-59); Albumin Globulin Ratio 0.9; Albumin Level 3.5 g/dL (3.4-5.0); Alkaline Phosphatase 106 U/L (46-116); Anion Gap 12.8; Aspartate Amino Transferase 12 U/L (15-37); BUN Creatinine Ratio 12.4; Bilirubin Total 0.4 mg/dL (0.2-1.0); Calcium 8.7 mg/dL (8.5-10.1); Carbon Dioxide 26.7 mmol/L (21.0-32.0); Chloride 103 mmol/L (98-107); Estimated GFR (African America >60 (>=60); Estimated GFR (Non-African Ame >60 (>=60); Globulin 4.1 g/dL; Glucose 150 mg/dL (74-106); Magnesium 2.2 mg/dL (1.8-2.4); Potassium 3.5 mmol/L (3.5-5.1); Sodium 139 mmol/L (136-145); Total Protein 7.6 g/dL (6.4-8.2)
[2023-03-24 17:07] LABS: Basophils Absolute Auto 0.1 10^3/uL (0.0-0.1); Basophils Percent Auto 0.5 % (0.2-2.0); Eosinophils Absolute Auto 0.2 10^3/uL (0.0-0.7); Eosinophils Percent Auto 1.8 % (0.9-7.0); Hematocrit 39.6 % (36.0-48.0); Hemoglobin 12.4 g/dL (12.0-16.0); Immature Granulocytes Abs Auto 0.16 10^3/uL (0.00-0.03); Immature Granulocytes Pct Auto 1.3 % (0.0-0.5); Lymphocytes Absolute Auto 1.3 10^3/uL (1.2-3.8); Lymphocytes Percent Auto 10.4 % (20.5-60.0); Mean Corpuscular HGB Conc 31.3 g/dL (29.9-35.2); Mean Corpuscular Hemoglobin 25.1 pg (26.7-34.0); Mean Corpuscular Volume 80.2 fL (81.0-99.0); Mean Platelet Volume 9.3 fL (9.5-13.5); Monocytes Percent Auto 8.7 % (1.7-12.0); Neutrophils Absolute Auto 9.3 10^3/uL (1.4-6.5); Neutrophils Percent Auto 77.3 % (43.0-75.0); Platelet Count 329 10^3/uL (150-450); Red Blood Count 4.94 10^6/uL (4.20-5.40); Red Cell Distribution Width 14.8 % (11.0-15.0)
--- OUTSIDE RECORDS SUMMARY | 2023-03-25 08:42 | XMS_ITS | CCD ---
Author Name Unknown Address [address] [place] [address] Organization [facility] Care Team Providers Care Professor Of Practice Name Role Phone ADA LUNA Referring Unavailable [...] Facility (2 sources) Codeine Drug Allergy Unknown [facility] Other (2 sources) Meperidine Drug Allergy Unknown [facility] Other (1 source) Codeine Drug Allergy [facility] (1 source) Meperidine Drug Allergy [facility] Medications Current Medications Medication Drug [...] Pr opionate (Flonase Allergy Relief) 50 mcg/actuation [place],Suspension Active 1 SPRAY INTRANASAL Daily November 02, [...] INSULINon 06-13-2022 Insulin 8.5 uIU/mL Normal 2.6-24.9 [facility] Comment on above: Performed By: #### I NSULIN #### [facility] [address] [place] [address] Dr. Delotne Sparrow AMMONIAon 06-12-2022 Ammonia (P) [Moles/Vol] 33 umol/L Critically high 11-32 [facility] Comment on above: Performed By: #### A MM #### [facility] [address] [place] [address] Dr. Delonte Sparrow AMYLASEon 06-12-2022 Amylase [Catalytic activity/Vol] 47 U/L Normal 25-115 [facility] Comment on above: Performed By: #### L IPA, CMP, NONI #### [facility] [address] [place] [address] Dr. Delonte Sparrow CBC AUTO DIFFon 06-12-2022 BASO # 0.0 103/ul Normal 0.0-0.1 [facility] Comment on above: Performed By: #### C BC #### [facility] [address] [place] [address] Dr. Delonte Sparrow Basophils/100 WBC (Bld) 0.7 % Normal 0.2-2.0 [facility] Comment on above: Performed By: #### C BC #### [facility] [address] [place] [address] Dr. Delonte Sparrow EO # 0.3 103/ul Normal 0.0-0.7 [facility] Comment on above: Performed By: #### C BC #### [facility] [address] [place] [address] Dr. Delonte Sparrow Eosinophils/100 WBC (Bld) 4.3 % Normal 0.9-7.0 [facility] Comment on above: Performed By: #### C BC #### [facility] [address] [place] [address] Dr. Delonte Sparrow Erythrocyte distribution width (RBC) [Ratio] 15.0 % Normal 11.0-15.0 [facility] Comment on above: Performed By: #### C BC #### [facility] [address] [place] [address] Dr. Delonte Sparrow Hematocrit (Bld) [Volume fraction] 38.8 % Normal 36.0-48.0 [facility] Comment on above: Performed By: #### C BC #### [facility] [address] [place] [address] Dr. Delonte Sparrow Hemoglobin (Bld) [Mass/Vol] 12.0 g/dL Normal 12.0-16.0 [facility] Comment on above: Performed By: #### C BC #### [facility] [address] [place] [address] Dr. Delonte Sparrow IG # 0.03 10e3/ul Normal 0.00-0.03 [facility] Comment on above: Performed By: #### C BC #### [facility] [address] [place] [address] Dr. Delonte Sparrow IG % 0.5 % Normal 0.0-0.5 [facility] Comment on above: Performed By: #### C BC #### [facility] [address] [place] [address] Dr. Delonte Sparrow LYMPH # 1.7 103/ul Normal 1.2-3.8 [facility] Comment on above: Performed By: #### C BC #### [facility] [address] [place] [address] Dr. Delonte Sparrow Lymphocytes/100 WBC (Bld) 27.3 % Normal 20.5-60.0 [facility] Comment on above: Performed By: #### C BC #### [facility] [address] [place] [address] Dr. Delonte Sparrow MANUAL DIFF REQ NO Normal [facility] Comment on above: Performed By: #### C BC #### [facility] [address] [place] [address] Dr. Delonte Sparrow MCH (RBC) [Entitic mass] 24.1 pg Critically low 26.7-34.0 [facility] Comment on above: Performed By: #### C BC #### [facility] [address] [place] [address] Dr. Delonte Sparrow MCHC (RBC) [Mass/Vol] 30.9 g/dL Normal 29.9-35.2 [facility] Comment on above: Performed By: #### C BC #### [facility] [address] [place] [address] Dr. Delonte Sparrow MCV (RBC) [Entitic vol] 78.1 fL Critically low 81.0-99.0 [facility] Comment on above: Performed By: #### C BC #### [facility] [address] [place] [address] Dr. Delonte Sparrow MONO # 0.4 103/ul Normal 0.3-0.8 [facility] Comment on above: Performed By: #### C BC #### [facility] [address] [place] [address] Dr. Delonte Sparrow Monocytes/100 WBC (Bld) 6.4 % Normal 1.7-12.0 [facility] Comment on above: Performed By: #### C BC #### [facility] [address] [place] [address] Dr. Delonte Sparrow NEUT # 3.7 103/ul Normal 1.4-6.5 [facility] Comment on above: Performed By: #### C BC #### [facility] [address] [place] [address] Dr. Delonte Sparrow Neutrophils/100 WBC (Bld) 60.8 % Normal 43.0-75.0 [facility] Comment on above: Performed By: #### C BC #### [facility] [address] [place] [address] Dr. Delonte Sparrow Platelet mean volume (Bld) [Entitic vol] 9.7 fL Normal 9.5-13.5 [facility] Comment on above: Performed By: #### C BC #### [facility] [address] [address] [address] Delonte Sparrow PLT 263 103/ul Normal 150-450 [facility] Comment on above: Performed By: #### C BC #### [facility] [address] [address] [address] Delonte Sparrow RBC 4.97 106/ul Normal 4.20-5.40 [facility] Comment on above: Performed By: #### C BC #### [facility] [address] [address] [address] Delonte Sparrow WBC 6.1 103/ul Normal 4.0-11.0 [facility] Comment on above: Performed By: #### C BC #### [facility] [address] [place] [address] Dr. Delonte Sparrow FREE THYROXINE INDEX T7on FTI 2.61 Normal 1.30-4.50 [facility] Comment on above: Performed By: #### L IPA, CMP, NONI #### [facility] [address] [place] [address] Dr. Delonte Sparrow T3U 33.0 % Normal 30.0-39.0 [facility] Comment on above: Performed By: #### L IPA, CMP, NOIN #### [facility] [address] [place] [address] Dr. Delonte Sparrow T4 [Mass/Vol] 7.90 ug/dL Normal 4.80-13.90 [facility] Comment on above: Performed By: #### L IPA, CMP, NONI #### [facility] [address] [place] [address] Dr. Delonte Sparrow GLYCOHEMOGLOBIN A1Con 2022 ADA RECOMMENDATION SEE BELOW Normal [facility] Comment on above: Result Comment: ADA RECOMMENDED LIMIT 4.0 - 6.0 ADA THERAPEUTIC TARGET < 7.0 ACTION SUGGESTED > 7.0 Performed By: #### A 1C #### [facility] [address] [place] [address] Dr. Delonte Sparrow Glucose [Mass/Vol] 105 mg/dL Normal [facility] Comment on above: Performed By: #### A 1C #### [facility] [address] [place] [address] Dr. Delonte Sparrow HbA1c (Bld) [Mass fraction] 5.3 % Normal 4.5-6.2 [facility] Comment on above: Performed By: #### A 1C #### [facility] [address] [place] [address] Dr. Delonte Sparrow IRONon 06-12-2022 Iron [Mass/Vol] 35.0 ug/dL Critically low 50.0-170.0 [facility] Comment on above: Performed By: #### L ADELE OCONNELL, NONI #### [facility] [address] [place] [address] Dr. Delonte Sparrow LIPASEon 06-12-2022 Lipase [Catalytic activity/Vol] 130.0 U/L Normal 73.0-393.0 [facility] Comment on above: Performed By: #### L KOURTNEY CMP, NONI #### [facility] [address] [place] [address] Dr. Delonte Sparrow TSHon 06-12-2022 TSH 1.741 uIU/mL Normal 0.358-3.740 [facility] Comment on above: Performed By: #### L IPA CMP, NONI #### [facility] [address] [place] [address] Dr. Delonte Sparrow VITAMIN D 25 OHon 06-12-2022 VIT D 25-OH 20.9 ng/mL Normal [facility] Comment on above: Performed By: #### I AMANDA VITAD #### [facility] [address] [place] [address] Dr. Delonte Sparrow VIT D RANGES SEE BELOW Normal [facility] Comment on above: Result Comment: <20 ng/mL Vit D deficient 20 - <30 ng/mL Vit D insufficient 30 - 100 ng/mL Vit D sufficient >100 ng/mL Potential Toxicity Performed By: #### I AMANDA VITAD #### [facility] [address] [place] [address] Dr. Delonte Sparrow AMYLASEon 08-21-2021 Amylase [Catalytic activity/Vol] 26 U/L Normal 25-115 [facility] Comment on above: Performed By: #### L IPA, CMP, NONI #### [facility] [address] [place] [address] Dr. Delonte Sparrow CBC W MANUAL DIFFon 08-22-19 22 ATYPICAL LYMPH # Normal [facility] Comment on above: Performed By: #### C BCMAN #### [facility] [address] [place] [address] Dr. Delonte Sparrow ATYPICAL LYMPH % Normal [facility] Comment on above: Performed By: #### C BCMAN #### [facility] [address] [place] [address] Dr. Delonte Sparrow BAND # Normal 0.0-0.3 [facility] Comment on above: Performed By: #### C BRITT #### [facility] [address] [place] [address] Dr. Delonte Sparrow BAND % Normal 0-5 [facility] Comment on above: Performed By: #### C BCSEA #### [facility] [address] [place] [address] Dr. Delonte Sparrow BASOM # 0.00 103/ul Normal 0.00-0.10 [facility] Comment on above: Performed By: #### C BCSEA #### [facility] [address] [place] [address] Dr. Delonte Sparrow BASOM % 0.0 % Critically low 0.2-2.0 [facility] Comment on above: Performed By: #### C BCSEA #### [facility] [address] [place] [address] Dr. Delonte Sparrow BLAST # Normal [facility] Comment on above: Performed By: #### C BCMAN #### [facility] [address] [place] [address] Dr. Delonte Sparrow BLAST % Normal [facility] Comment on above: Performed By: #### C BCSEA #### [facility] [address] [place] [address] Dr. Delonte Sparrow CORRECTED WBC Normal 4.0-11.0 [facility] Comment on above: Performed By: #### C BCMAN #### [facility] [address] [address] [address] Delonte Sparrow EOS # 15.45 103/ul Critically high 0.00-0.70 [facility] Comment on above: Performed By: #### C BCSEA #### [facility] [address] [address] [address] Delonte Sparrow EOS% 57.0 % Critically high 0.9-7.0 [facility] Comment on above: Performed By: #### C BCSEA #### [facility] [address] [address] [address] Delonte Sparrow HCT 45.1 % Normal 36.0-48.0 [facility] Comment on above: Performed By: #### C BCSEA #### [facility] [address] [address] [address] Delonte Sparrow HGB 13.9 g/dl Normal 12.0-16.0 [facility] Comment on above: Performed By: #### C BRITT #### [facility] [address] [address] [address] Delonte Sparrow LYMPHM # 2.98 103/ul Normal 1.20-3.80 [facility] Comment on above: Performed By: #### C BRITT #### [facility] [address] [address] [address] Delonte Sparrow LYMPHM% 11.0 % Critically low 20.5-60.0 [facility] Comment on above: Performed By: #### C BCSEA #### [facility] [address] [address] [address] Delonte Sparrow MCH 23.3 pg Critically low 26.7-34.0 [facility] Comment on above: Performed By: #### C BCSEA #### [facility] [address] [address] [address] Delonte Sparrow MCHC 30.8 g/dl Normal 29.9-35.2 [facility] Comment on above: Performed By: #### C BRITT #### [facility] [address] [address] [address] Delonte Sparrow MCV 75.5 fL Critically low 81.0-99.0 [facility] Comment on above: Performed By: #### C BRITT #### [facility] [address] [place] [address] Dr. Delonte Sparrow METAMYELOCYTE # Normal [facility] Comment on above: Performed By: #### C BRITT #### [facility] [address] [place] [address] Dr. Delonte Sparrow METAMYELOCYTE % Normal [facility] Comment on above: Performed By: #### C BRITT #### [facility] [address] [place] [address] Dr. Delonte Sparrow MONOM# 1.63 103/ul Critically high 0.30-0.[address] [facility] Comment on above: Performed By: #### C BRITT #### [facility] [address] [place] [address] Dr. Delonte Sparrow MONOM% 6.0 % Normal 1.7-12.0 [facility] Comment on above: Performed By: #### C BRITT #### [facility] [address] [place] [address] Dr. Delonte Sparrow MPV 9.9 fL Normal 9.5-13.5 [facility] Comment on above: Performed By: #### C BRITT #### [facility] [address] [place] [address] Dr. Delonte Sparrow MYELOCYTE # Normal [facility] Comment on above: Performed By: #### C BRITT #### [facility] [address] [place] [address] Dr. Delonte Sparrow MYELOCYTE % Normal [facility] Comment on above: Performed By: #### C BRITT #### [facility] [address] [place] [address] Dr. Delonte Sparrow NRBC Normal [facility] Comment on above: Performed By: #### C BRITT #### [facility] [address] [place] [address] Dr. Delonte Sparrow PLT 343 103/ul Normal 150-450 [facility] Comment on above: Performed By: #### Pravin DE LA TORRE #### [facility] [address] [address] [address] Delonte Sparrow RBC 5.97 106/ul Critically high 4.20-5.[address] [facility] Comment on above: Performed By: #### Pravin DE LA TORRE #### [facility] [address] [address] [address] Delonte Sparrow RDW 16.9 % Critically high 11.0-15.0 [facility] Comment on above: Performed By: #### Pravin DE LA TORRE #### [facility] [address] [place] [address] Dr. Delonte Sparrow SEG # 7.05 103/ul Critically high 1.40-6.[address] [facility] Comment on above: Performed By: #### Pravin DE LA TORRE #### [facility] [address] [place] [address] Dr. Delonte Sparrow SEG % 26.0 % Critically low 43.0-75.0 [facility] Comment on above: Performed By: #### Pravin DE LA TORRE #### [facility] [address] [place] [address] Dr. Delonte Sparrow WBC 27.1 103/ul Critically high 4.0-11.[address] [facility] Comment on above: Performed By: #### Pravin DE LA TORRE #### [facility] [address] [place] [address] ABD/PELV W CONon [...] DWIGHT TOBAR Date: 2021-08-21 16:48 Normal [facility] LIPASEon 08-21-2021 Lipase [Catalytic activity/Vol] 58.0 U/L Critically low 73.0-393.0 [facility] Comment on above: Performed By: #### L IPA, CMP, NONI #### [facility] [address] [place] [address] Dr. Delonte Sparrow PROF 14(COMP METB)on 022 Albumin [Mass/Vol] 3.6 g/dL Normal 3.4-5.0 [facility] Comment on above: Performed By: #### L IPA, CMP, NONI #### [facility] [address] [address] [address] Delonte Sparrow Albumin/Globulin [Mass ratio] 1.0 {ratio} Normal [facility] Comment on above: Performed By: #### L IPA, CMP, NONI #### [facility] [address] [address] [address] Delonte Sparrow ALP [Catalytic activity/Vol] 125 U/L Critically high 46-116 [facility] Comment on above: Performed By: #### L IPA, CMP, NONI #### [facility] [address] [address] [address] Delonte Sparrow ALT [Catalytic activity/Vol] 27 U/L Normal 14-59 [facility] Comment on above: Performed By: #### L IPA, CMP, NONI #### [facility] [address] [address] [address] Delonte Sparrow Anion gap [Moles/Vol] 12.7 mmol/L Normal [facility] Comment on above: Performed By: #### L IPA, CMP, NONI #### [facility] [address] [address] [address] Delonte Sparrow AST [Catalytic activity/Vol] 15 U/L Normal 15-37 [facility] Comment on above: Performed By: #### L IPA, CMP, NONI #### [facility] [address] [address] [address] Delonte Sparrow Bilirubin [Mass/Vol] 0.3 mg/dL Normal 0.2-1.0 [facility] Comment on above: Performed By: #### L IPA, CMP, NONI #### [facility] [address] [address] [address] Delonte Sparrow Calcium [Mass/Vol] 8.2 mg/dL Critically low 8.5-10.1 [facility] Comment on above: Performed By: #### L IPA, CMP, NONI #### [facility] [address] [address] [address] Delonte Sparrow Chloride [Moles/Vol] 103 mmol/L Normal 98-107 [facility] Comment on above: Performed By: #### L IPA, CMP, NONI #### [facility] [address] [address] [address] Delonte Sparrow CO2 [Moles/Vol] 29.2 mmol/L Normal 21.0-32.[address] [facility] Comment on above: Performed By: #### L IPA, CMP, NONI #### [facility] [address] [address] [address] Delonte Sparrow Creatinine [Mass/Vol] 0.81 mg/dL Normal 0.55-1.02 [facility] Comment on above: Performed By: #### L IPA, CMP, NONI #### [facility] [address] [place] [address] Dr. Delonte Sparrow EGFR-AF CANADIAN >60 Normal >=[address] [facility] Comment on above: Performed By: #### L IPA, CMP, NONI #### [facility] [address] [place] [address] Dr. Delonte Sparrow EGFR-NON AF CANADIAN >60 Normal >=60 [facility] Comment on above: Performed By: #### L IPA, CMP, NONI #### [facility] [address] [place] [address] Dr. Delonte Sparrow Globulin (S) [Mass/Vol] 3.7 g/dL Normal [facility] Comment on above: Performed By: #### L IPA, CMP, NONI #### [facility] [address] [address] [address] Delonte Sparrow Glucose [Mass/Vol] 103 mg/dL Normal 74-106 [facility] Comment on above: Performed By: #### L IPA, CMP, NONI #### [facility] [address] [address] [address] Delonte Sparrow Potassium [Moles/Vol] 3.9 mmol/L Normal 3.5-5.1 [facility] Comment on above: Performed By: #### L IPA, CMP, NONI #### [facility] [address] [address] [address] Delonte Sparrow Protein [Mass/Vol] 7.3 g/dL Normal 6.4-8.2 [facility] Comment on above: Performed By: #### L IPA, CMP, NONI #### [facility] [address] [address] [address] Delonte Sparrow Sodium [Moles/Vol] 141 mmol/L Normal 136-145 [facility] Comment on above: Performed By: #### L IPA, CMP, NONI #### [facility] [address] [place] [address] Dr. Delonte Sparrow Urea nitrogen [Mass/Vol] 16.0 mg/dL Normal 7.0-18.0 [facility] Comment on above: Performed By: #### L IPA, CMP, NONI #### [facility] [address] [address] [address] Delonte Sparrow Urea nitrogen/Creatinine [Mass ratio] 19.8 mg/mg Normal [facility] Comment on above: Performed By: #### L IPA, CMP, NONI #### [facility] [address] [place] [address] Dr. Delonte Awan 06-22-2020 L Specimen: [id number] Received: 06/22/20 Status: DB Black Num: [id number] Spec Type: Surgical Subm Dr: René Holley Jr, DO Tissues: A Small Intestine - Biopsy/Polyp (TERMINAL ILEUM) B Colon - Polyp (RECTOSIGMOID POLYP) Procedures: HE Stain/4, Gross/Micro L4/2 Patient Age/Sex Location Account Attending Physician Malu Steele 55/F [id number] René Holley Jr, DO SPEC NUM: [id number] RECD: 06/22/20 STATUS: DB HERLINDA NUM: [id number] GAVINO: 06/22/20-1247 [facility] DR: René Holley Jr, DO ENTERED: 06/22/201530 [facility] DR: SONYA TYPE: Surgical DEPT: S [...] in one cassette labeled B1. (/YJ) Specimen: [id number] Received: 06/22/20 Status: DB Black Num: [id number] Spec Type: Surgical Subm Dr: René Holley Jr, DO Tissues: A Small Intestine - Biopsy/Polyp (TERMINAL ILEUM) B Colon - Polyp (RECTOSIGMOID POLYP) Procedures: HE Stain/4, Gross/Micro L4/2 Patient: Malu Steele [id number] (Continued) Specimen: [id number] Received: 06/22/20 (Continued) Signed (signature on file) Iveth Patel MD 06/25/20 1528 Specimen: [id number] Received: 06/22/20 Status: DB Black Num: [id number] Spec Type: Surgical Subm Dr: René Holley Jr, DO Tissues: A Small Intestine - Biopsy/Polyp (TERMINAL ILEUM) B Colon - Polyp (RECTOSIGMOID POLYP) Procedures: HE Stain/4, Gross/Micro L4/2 Patient: Malu Steele Christen [id number] (Continued) Specimen: [id number] Received: 06/22/20 (Continued) Microscopic Description A. Two glass slides with H E stained material have been examined. The microscopic findings support the above pathologic diagnosis. B. Two glass slides with H E stained material have been examined. The microscopic findings support the above pathologic diagnosis. CPT Codes 50454?2 Specimen: [id number] Received: 06/22/20 Status: DB Black Num: [id number] Spec Type: Surgical Subm Dr: René Holley Jr, DO Tissues: A Small Intestine - Biopsy/Polyp (TERMINAL ILEUM) B Colon - Polyp (RECTOSIGMOID POLYP) Procedures: HE Stain/4, Gross/Micro L4/2 Patient: Malu Steele [id number] (Continued) Signed (signature on file) Iveth Patel MD 06/25/20 1528 Normal [facility] SARS-CoV-2 (COVID-19) RNA WES+probe Ql (Unsp spec) Negative Normal Negative [facility] Comment on above: Order Comment: Healt hcare Worker?: N Result Comment: Test ing for SARS-CoV-2 by RT-PCR This test was developed and its performance characteristics determined by [employer] ([place]) and validated at the [facility]. This test has not been FDA cleared [...] is terminated or revoked sooner. PERFORMED BY: [place] [address] PATHOLOGIST STAFFING RN NIALL MILAN M.D. Performed By: #### C OVID-19 [facility] #### [address] COVID-19 Positive/Negativeon 06-20-2020 SARS-CoV-2 (COVID-19) N gene WES+probe Ql (Resp) Negative Negative [facility] Comment on above: Testing for SARS-CoV -2 by RT-PCRThis test was developed and its performance characteristics determined by [employer] ([employer] and validated at the [facility]. This test has not been FDA cleared [...] (COVID-19) RNA WES+probe Ql (Unsp spec) N/A [facility] Cytologyon 04-12-2018 Cytology (NOTE) [id number] [facility] ANATOMIC PATHOLOGY [address] [place] [id number] GYNECOLOGIC CYTOLOGY REPORT Patient Name: MALU STEELE MR#: [id number] Specimen #[id number] Source: 1: Cervical material, (ThinPrep vial, Imaging-assisted review) Clinical History Postmenopausal Z01.419 Routine obstetrics gynecology md exam without abnormal findings High Risk HPV DNA testing is requested if the diagnosis is ASC-US LMP: 11/11/15 INTERPRETATION Cervical material, (ThinPrep vial, Imaging-assisted review): Specimen Adequacy: Satisfactory for evaluation. - Endocervical/transfo rmation zone component present. - Scant cellularity, predominantly inflammatory exudate. Descriptive Diagnosis: Negative for intraepithelial lesion or malignancy. Shift in bruce suggestive of bacterial vaginosis. [employer]: HARJIT Valera(ASCP) Electronically Signed Out bessie/04/23/2018 Normal [facility] Comment on above: Performed By: #### P PPVP #### [facility] [address] [place] [address] [id number] [employer] Betting Manager: Karthik Lynn MD Vital Signs Date Time Vital Sign Value Performing Clinician Facility 10-07-2022 09:30-0400 Body height 170.18 cm Philippe Wise Other [facility] Other 10-07-2022 09:30-0400 Body mass index (BMI) [Ratio] 34.45 kg/m2 Philippe Wise [facility] Other 10-07-2022 09:30-0400 Body weight 99.79 kg Philippe Esterrosalie Other [facility] Other 10-07-2022 09:30-0400 Diastolic blood pressure 83 mm[Hg] Philippe Esterrosalie Other [facility] Other 10-07-2022 09:30-0400 Systolic blood pressure 139 mm[Hg] Philippe Wise Other [facility] Other 08-29-2021 12:00-0400 Body height 170.18 cm René Holley Other [facility] Other 08-29-2021 12:00-0400 Body mass index (BMI) [Ratio] 35.55 kg/m2 René Holley Other [facility] Other 08-29-2021 12:00-0400 Body weight 102.97 kg René Holley Other [facility] Other 08-29-2021 12:00-0400 Diastolic blood pressure 89 mm[Hg] René Holley Other [facility] Other 08-29-2021 12:00-0400 Systolic blood pressure 142 mm[Hg] Reén Holley Other [facility] Other Encounters Encounter Date Encounter Type Care Provider Facility Start: 10-07-2022 End: 10-07-2022 ambulatory Philippe Wise Other [facility] Other Start: 10-07-2022 Patient encounter procedure Philippe Wise [facility] Start: 07-07-[address] KAYY PANIAGUA . Facili ty:[facility] Start: 06-12-2022 End: 06-13-[address] KAYY PANIAGUA . Facility:[facility] Start: 08-29-2021 End: 08-29-2021 ambulatory René Holley Other [facility] Other Start: 08-29-2021 Office outpatient vi sit 25 minutes René Holley [facility] Start: 08-21-2021 End: 08-22-[address] KAYY PANIAGUA . Facility:[facility] Start: 06-20-2020 End: 06-20-2020 Patient encounter procedure Nader Kayy Paniagua Work Phone: -Pre-Surgical Testing Start: 04-12-2018 Encounter for gynecological examination (general) (routine) without abnormal findings [facility] Start: 04-12-2018 End: 04-13-2018 Patient encounter procedure [facility] Procedures Date Procedure Procedure Detail Performing Clinician Start: 04-12-2018 Screen pap by gisela cleveland md supv [facility] Payers Date Payer Category Payer Unknown [id number] 1965 Unknown [id number] 1965 Unknown [id number] 1965 Unknown [id number] 1958 Private Health Insurance [id number] Self-pay [employer] [id number] Unknown [employer] [id number] Social History Date Type Detail Facility Start: 11-03-2018 Tobacco smoking status NHIS Ex-smoker (finding) [facility] Start: 1965 Sex Assigned At Female F [facility] Sex Assigned At Sex Assigned At Bir [facility] Other Goals Date Patient Goal Desired Activity [...] Patient can restart dicyclomine 20mg TID PRN. [facility] Other Evaluation note 08-29-2021 Note Date & Type Note Facility 08-29-2021 Evaluation note Encounter Date Diagnosis Assessment Notes Aug, Crohns disease (ICD-10 - K50.90) Aug, Viral gastroenteritis (ICD-10 - A08.4) Continue prednisone as prescribed by PCP Start Cipro 500mg bid for 7 days Patient to call when she finished prednisone and cipro if symptoms do not improve. Follow up in 4 weeks. [facility] Other History general Narrative - Reported 07-24-2020 Note Date & Type Note Facility 07-24-2020 History general N arrative - Reported Type Medical History Crohns disease Surgical History C section X2 Surgical History hysterectomy 07/2020 [employer] [facility] Other Evaluation note Note Date & Type Note Facility Evaluation note No Assessments Information Avail able [facility] Summary Purpose Family History Relationship Condition [...] DATE CREATED AUTHOR AUTHOR'S ORGANIZ ATION 04/04/2021 [facility] DATE CREATED AUTHOR AUTHOR'S ORGANIZ ATION [...] BE BASED ON THE PRIMARY CLINICAL RECORDS. [employer] [facility]. provides no warranty or guarantee of the accuracy or completeness of information in this document.
== END 2023-03-24 08:39 | disposition home or self-care (01) ==
LOC: LAB 03-25 08:39
PROVIDERS: PCP Family Medicine; Visit Provider Family Medicine
DX: R25.2 Cramp and spasm (principal); R53.83 Other fatigue; R39.9 Unspecified symptoms and signs involving the genitourinary system; J02.9 Acute pharyngitis, unspecified
CPT/HCPCS: 36415; 80053; 81003; 83735; 85025; 87086; 87880

== ENCOUNTER 2023-04-06 12:58 | Outpatient (OUT) | payer OTHER, SELFPAY ==
--- NOTE | 2023-04-06 13:46 | CA_ITS ---
Patient Name: ESSIE STEELE MR#: [id number] : 1965 Exam Date: 04/06/2023 Ordering Doctor: LOU MCCLAIN ECHOCARDIOGRAM REPORT PROCEDURE: CA ECHO LIMITED INDICATIONS: Atrial fibrillation, hypertension COMPARISON: None. DESCRIPTION: Limited ECHOCARDIOGRAM Real-time transthoracic echocardiography with 2D and M-mode performed. QUALITY: Technical quality was good. Limited echocardiogram per physician order. 67 , 225#, BSA 2.13 m2 LEFT VENTRICLE: Normal chamber size. Thickened septal wall. LV EF: Global left ventricular systolic function is difficult to assess but appears preserved; visually estimated ejection fraction is 55 to 60%. Unable to assess regional wall motion abnormalities. LEFT ATRIUM: Mild dilatation. RIGHT ATRIUM: Normal chamber size. RIGHT VENTRICLE: Normal chamber size. Systolic function appears preserved. TRICUSPID VALVE: Normal mobility and thickness. MITRAL VALVE: Normal mobility and thickness. There is no mitral annular calcification. AORTIC VALVE: Normal trileaflet appearance. No visible sclerosis. Normal leaflet mobility. AORTIC ROOT: Normal diameter and appearance. PULMONIC VALVE: Normal thickness and mobility. PERICARDIUM: Anterior free space; trivial effusion versus fat pad. IVC: Collapses with inspirations. IVC is normal in size. CONCLUSION: 1. Global left ventricular systolic function is difficult to assess but appears preserved; visually estimated ejection fraction is 55 to 60% 2. Normal right ventricular size and systolic function 3. The left atrium is mildly dilated 4. Anterior free space; trivial effusion versus fat pad A limited echocardiogram was performed Adult Echocardiography Procedure Report Left Ventricle LVEDD (3.7 - 5.6 cm): 4.92 cm LVESD (2.2 - 4.0 cm): 2.94 cm LVIVS thickness (0.6 - 1.2 cm): 1.51 cm LVPW thickness (0.5 - 1.0 cm): 1.09 cm e': 0.06 m/s E - e': 9.72 LVOT Max Gradient: 1.92 mm[Hg] LVOT Area (cm2): 0.69 m/s Peak Velocity (LVOT): 0.69 m/s Mean Velocity (LVOT): 0.45 m/s LVOT Diameter 2.63 cm Left Atrium LA Volume Index (2D A2C): 36.24 ml/m2 Left Atrium Systolic Dimension: 3.95 cm Mitral Valve MV E to A Ratio: 0.85 Mitral Valve A-Wave Peak Velocity: 0.71 m/s Mitral Valve E-Wave Peak Velocity: 0.60 m/s Right Ventricle Aorta AO Root Diam: 3.35 cm Ascending Ao Diam: 2.98 cm Aortic Valve AoV Area (Peak Cresencio): 2.91 cm2, 2.91 cm2 AoV Area (VTI): 3.12 cm2, 3.12 cm2 Peak Velocity(Antegrade Flow): 1.29 m/s Peak Gradient(Antegrade Flow): 6.69 mm[Hg] Mean Velocity(Antegrade Flow): 0.87 m/s Mean Gradient(Antegrade Flow): 3.40 mm[Hg] Velocity Time Integral: 28.83 cm Tricuspid Valve Peak Velocity (Regurgitant Flow): 3.12 m/s, 2.50 m/s Pulmonic Valve Peak Velocity: 0.80 m/s Peak Gradient: 2.37 mm[Hg], 2.79 mm[Hg] Right Atrium Right Atrium Systolic Pressure: 29.90 ml, 29.90 ml Dictated by: Laureen Fall M.D. on 04/06/2023 at 16:15 Approved by: Laureen Fall M.D. on 04/06/2023 at 16:19
== END 2023-04-06 12:59 | disposition home or self-care (01) ==
LOC: CARD 12:58
PROVIDERS: PCP Family Medicine; Visit Provider Nurse Practitioner
DX: I48.0 Paroxysmal atrial fibrillation (principal)
CPT/HCPCS: 93308

== ENCOUNTER 2023-04-22 09:19 | Outpatient (OUT) | payer OTHER, SELFPAY ==
--- NOTE | 2023-04-22 08:45 | NM_ITS ---
Patient Name: ESSIE STEELE MR#: [id number] : 1965 Exam Date: 04/22/2023 Ordering Doctor: LOU MCCLAIN RADIOLOGY REPORT PROCEDURE: NM ELIANA PERF SPECT REST STR COMPARISON: None. INDICATIONS: ATRIAL FIBRILLATION TECHNIQUE: Exam Description: Stress/Rest one day protocol gated SPECT Rest Imagin.3 mCi Tc-99m Cardiolite IV on 04/22/2023 Stress Imaging 30.7 mCi Tc-99m Cardiolite IV on 04/22/2023 Exercise Protocol: Kapil Heart Rate (bpm): Rest: 59 Max: 157 PMHR: 96 Blood Pressure: Rest: 146/88 Max: 188/90 Exercise Time: Minutes: 6 Seconds: 40 Stage Reached: Stage: 3 Mets 9.0 Symptoms: Rest and peak stress ECG findings were normal and the exercise portion of the study was normal per attending physician Dr. Fall . For more details please see separate cardiac stress test report. FINDINGS: QUALITY OF STUDY: Good. PERFUSION DEFECT: None. LOCATION: N/A SIZE: N/A. SEVERITY: N/A. TYPE: N/A. WALL MOTION: Normal. LV SIZE: Normal. 75 mL. TID / TCD: None; 0.7 LVEF: Normal. Calculated EF 81%. SUMMARY: Myocardial perfusion imaging study is NORMAL. CONCLUSION: 1. Normal myocardial perfusion scan with no reversible ischemia 2. Normal exercise test Dictated by: René Alberto MD on 04/23/2023 at 09:43 Approved by: René Alberto MD on 04/23/2023 at 09:44
--- NOTE | 2023-04-22 09:19 | PCN_ITS ---
CARDIAC STRESS TEST ? Requesting Physician:? Procedure Date:? 04/22/2023 ? DIAGNOSIS:? Atrial fibrillation, dyspnea on exertion, chest pain. ? METHODS:? After risks, benefits and alternatives were explained, written informed consent was obtained.? ? The patient was brought to the Stress Lab in a resting and fasting state.? She was connected to the appropriate hemodynamic and electrocardiographic monitoring.? ? She underwent a Kapil protocol for exercise.? Technetium Cardiolite was injected per protocol.? ? At the completion of the test, she was monitored for the standard duration and transferred to the Radiology Department for further imaging. ? She had no symptoms and there were no complications. ? FINDINGS: ? STRESS TEST INFORMATION:? The patient underwent a Kapil protocol, exercising for 6 minutes and 40 seconds, reaching stage 3 and achieving 9 METS.? Resting heart rate was 59 beats per minute, increasing to a maximum of 157 beats per minute, which is 93% of maximum predicted heart rate.? Resting blood pressure was 146/88, increasing to a maximum of 188/90.? ? ELECTROCARDIOGRAPHY:? Rest EKG:? Normal sinus rhythm, normal EKG. During exercise and recovery:? Non-specific, upsloping ST depressions were seen.? No significant arrhythmias were noted.? These changes returned to normal at the completion of the test. ? FINAL IMPRESSIONS: 1.? No ischemic EKG changes seen on Treadmill Exercise Stress Test. 2.? Normal heart rate and blood pressure response to exercise. 3.? Aparicio treadmill score of 6.4.? Estimated one year mortality 0.5-0.6%.? Risk category:? Low risk.? Angiography is usually not indicated. 4.? Nuclear images are to be read, interpreted and reported in a separate dictation MTDD
== END 2023-04-22 09:20 | disposition home or self-care (01) ==
LOC: NM 09:19
PROVIDERS: PCP Family Medicine; Visit Provider Nurse Practitioner
DX: I48.0 Paroxysmal atrial fibrillation (principal)
CPT/HCPCS: 78452; 93017; A9500

== ENCOUNTER 2023-04-23 16:56 | Outpatient (OUT) | payer OTHER, SELFPAY ==
[2023-04-23 17:37] LABS: Influenza Virus A Antigen Negative; Influenza Virus B Antigen Negative; Internal Control Within Normal Limits; Respiratory Syncytial Virus Not Detected (NOT DETECTE); SARS-CoV-2 Ag NEGATIVE (NEGATIVE)
[2023-04-24 15:30] LABS: SARS-CoV-2 NAA INCONCLUSIVE (NOT DETECTE)
== END 2023-04-23 16:57 | disposition home or self-care (01) ==
LOC: LAB 16:57
PROVIDERS: PCP Family Medicine; Visit Provider Family Medicine
DX: J01.90 Acute sinusitis, unspecified (principal)
CPT/HCPCS: 87420; 87635; 87804; 87811

== ENCOUNTER 2023-09-18 08:59 | Outpatient (OUT) | payer OTHER, SELFPAY ==
--- NOTE | 2023-09-18 09:01 | MM_ITS ---
Patient Name: ESSIE STEELE MR#: [id number] : 1965 Exam Date: 09/18/2023 Ordering Doctor: DR Brett Paniagua . RADIOLOGY REPORT PROCEDURE: MM TOMOSYNTHESIS SCREENING BI COMPARISON: MG MAMM SCREEN 3D WILMA CAD, 05/11/2020. MAMMO RT UNI DIG, 12/24/2011. MAMMO SCREEN DIG WILMA, 12/17/2011. INDICATIONS: Screening Calculator Name NCI Breast Cancer Risk Assessment Tool 5 Year Breast Cancer Risk 1.00% Lifetime Breast Cancer Risk 6.50% Personal Breast Cancer No Personal Ovarian Cancer No Treatments None Family Cancers Sister with tongue cancer at age 37. LOCATION: [facility] BREAST COMPOSITION: There are scattered areas of fibroglandular density. FINDINGS: DIAGNOSTIC CATEGORY 2--BENIGN FINDING: RIGHT BREAST: No significant suspicious finding. Scattered benign-appearing nodes are present. No significant change has occurred. LEFT BREAST: No significant suspicious finding. Scattered benign-appearing nodules are present. No significant change has occurred. RECOMMENDATIONS: ROUTINE MAMMOGRAM AND CLINICAL EVALUATION IN 12 MONTHS. PLEASE NOTE: A NORMAL MAMMOGRAM DOES NOT EXCLUDE THE POSSIBILITY OF BREAST CANCER. A CLINICALLY SUSPICIOUS PALPABLE LUMP SHOULD BE BIOPSIED. Dictated by: Darius Herzog M.D. on 09/18/2023 at 14:11 Approved by: Darius Herzog M.D. on 09/18/2023 at 14:13
--- OUTSIDE RECORDS SUMMARY | 2023-09-18 09:09 | XMS_ITS | CCD ---
Author Organization [facility] Care Team Providers Care Cage Clerk Name Role Phone ADA LUNA Referring Unavailable KAYY PANIAGUA Primary Care Unavailable Nader Paniagua Primary Care Provider René Holley Attending Provider [phone] René Holley Unavailable HOJacob ., DR SULTANA Admitting Unavailable HOY ., [...] STRAWSER, DWIGHT Consulting Unavailable Philippe Wise Unavailable LOU BROWN Attending Unavailable KRISHAN RAMIREZ Attending Unavailable LOU BROWN Referring Unavailable Allergies Allergy Classification Reported Allergen(s) Allergy Type Date of Onset Reaction(s) Facility (3 sources) Codeine; Translations: [CODEINE] Drug Allergy 03-30-2023 Unknown [facility] Repository (3 sources) Meperidine; Translations: [MEPERIDINE] Drug Allergy 05-26-2023 Unknown [facility] Repository (1 source) Codeine Drug Allergy [facility] Repository (1 source) Meperidine Drug Allergy [facility] Medications Current Medications Medication Drug [...] Pr opionate (Flonase Allergy Relief) 50 mcg/actuation [place],Suspension Active 1 SPRAY INTRANASAL Daily November 02, [...] Translations: [Unspecified abdominal pain] Onset: 2 Episodic Cardiac dysrhythmias (2 sources) Paroxysmal atrial fibrillation; Translations: [Paroxysmal atrial fibrillation] Onset: 4 Chronic Deficiency and other anemia (1 source) Anemia, [...] unspecified Onset: 08-29-2021 Resolved: 08-29-2021 Episodic Other lower respiratory disease (2 sources) Snoring; Translations: [Snoring] Onset: 03-30-2023 Episodic Other nutritional; endocrine; and metabolic disorders (1 source) Abnormal weight loss; Translations: [ABNORMAL WEIGHT LOSS] Onset: 08-23-2021 Episodic Results Test Name Value Interpretation Reference Range Facility Office Visiton 05-26-2023 Follow-up visit [id number] Malu Steele 1965 F Date Provider Department Center 05/26/2023 KRISHAN POWELL Family History Problem Relation Age of Onset Heart attack Mother's Brother Hypertension Maternal Grandmother Family Status - Relation Status Age at Mother's Brother Maternal Grandmother Level of Service:66600 ME OFFICE/OUTPATIENT NEW MODERATE MDM 45 MINUTES Reason for Visit and Comments: Follow-up [[id number]] - Go over echo and stress test results Normal [facility] 36on 04-30-2023 36 Per Lou Brown CNP regarding recent stress test: Normal stress test. Follow up as planned. She is scheduled to see Dr. Ramirez 05/26/2023. Patient made aware of stress test result. Normal [facility] Office Visiton 03-30-2023 Follow-up visit [id number] Malu Steele 1965 F Date Provider Department Center 03/30/2023 LOU GARCIA Family History Problem Relation Age of Onset Heart attack Mother's Brother Hypertension Maternal Grandmother Family Status - Relation Status Age at Mother's Brother Maternal Grandmother Level of Service:53337 ME OFFICE/OUTPATIENT ESTABLISHED MOD MDM 30 MIN Normal [facility] INSULINon 06-13-2022 Insulin 8.5 uIU/mL Normal 2.6-24.9 [facility] Comment on above: Performed By: #### I NSULIN #### [facility] [address] [place] [address] Dr. Delonte Sparrow AMMONIAon 06-12-2022 Ammonia (P) [Moles/Vol] 33 umol/L Critically high 11-32 [facility] Comment on above: Performed By: #### A MM #### [facility] [address] [place] [address] Dr. Delonte Sparrow AMYLASEon 06-12-2022 Amylase [Catalytic activity/Vol] 47 U/L Normal 25-115 [facility] Comment on above: Performed By: #### L IPA, CMP, NONI #### [facility] [address] [place] [address] Dr. Delonte Sparrow CBC AUTO DIFFon 06-12-2022 BASO # 0.0 103/ul Normal 0.0-0.1 [facility] Comment on above: Performed By: #### C BC #### [facility] [address] [place] [address] Dr. Delonte Sparrwo Basophils/100 WBC (Bld) 0.7 % Normal 0.2-2.0 [facility] Comment on above: Performed By: #### C BC #### [facility] [address] [place] [address] Dr. Delonte Sparrow EO # 0.3 103/ul Normal 0.0-0.7 [facility] Comment on above: Performed By: #### C BC #### [facility] [address] [place] [address] Dr. Delonte Sparrow Eosinophils/100 WBC (Bld) 4.3 % Normal 0.9-7.0 [facility] Comment on above: Performed By: #### C BC #### [facility] [address] [place] [address] Dr. Delonte Sparrow Erythrocyte distribution width (RBC) [Ratio] 15.0 % Normal 11.0-15.0 [facility] Comment on above: Performed By: #### C BC #### [facility] [address] [place] [address] Dr. Delonte Sparrow Hematocrit (Bld) [Volume fraction] 38.8 % Normal 36.0-48.0 [facility] Comment on above: Performed By: #### C BC #### [facility] [address] [place] [address] Dr. Delonte Sparrow Hemoglobin (Bld) [Mass/Vol] 12.0 g/dL Normal 12.0-16.0 [facility] Comment on above: Performed By: #### C BC #### [facility] [address] [place] [address] Dr. Delonte Sparrow IG # 0.03 10e3/ul Normal 0.00-0.03 [facility] Comment on above: Performed By: #### C BC #### [facility] [address] [place] [address] Dr. Delonte Sparrow IG % 0.5 % Normal 0.0-0.5 [facility] Comment on above: Performed By: #### C BC #### [facility] [address] [place] [address] Dr. Delonte Sparrow LYMPH # 1.7 103/ul Normal 1.2-3.8 [facility] Comment on above: Performed By: #### C BC #### [facility] [address] [place] [address] Dr. Delonte Sparrow Lymphocytes/100 WBC (Bld) 27.3 % Normal 20.5-60.0 [facility] Comment on above: Performed By: #### C BC #### [facility] [address] [place] [address] Dr. Delonte Sparrow MANUAL DIFF REQ NO Normal [facility] Comment on above: Performed By: #### C BC #### [facility] [address] [place] [address] Dr. Delonte Sparrow MCH (RBC) [Entitic mass] 24.1 pg Critically low 26.7-34.0 [facility] Comment on above: Performed By: #### C BC #### [facility] [address] [place] [address] Dr. Delonte Sparrow MCHC (RBC) [Mass/Vol] 30.9 g/dL Normal 29.9-35.2 [facility] Comment on above: Performed By: #### C BC #### [facility] [address] [place] [address] Dr. Delonte Sparrow MCV (RBC) [Entitic vol] 78.1 fL Critically low 81.0-99.0 [facility] Comment on above: Performed By: #### C BC #### [facility] [address] [place] [address] Dr. Delonte Sparrow MONO # 0.4 103/ul Normal 0.3-0.8 [facility] Comment on above: Performed By: #### C BC #### [facility] [address] [place] [address] Dr. Delonte Sparrow Monocytes/100 WBC (Bld) 6.4 % Normal 1.7-12.0 [facility] Comment on above: Performed By: #### C BC #### [facility] [address] [place] [address] Dr. Delonte Sparrow NEUT # 3.7 103/ul Normal 1.4-6.5 [facility] Comment on above: Performed By: #### C BC #### [facility] [address] [place] [address] Dr. Delonte Sparrow Neutrophils/100 WBC (Bld) 60.8 % Normal 43.0-75.0 [facility] Comment on above: Performed By: #### C BC #### [facility] [address] [place] [address] Dr. Delonte Sparrow Platelet mean volume (Bld) [Entitic vol] 9.7 fL Normal 9.5-13.5 [facility] Comment on above: Performed By: #### C BC #### [facility] [address] [place] [address] Dr. Delonte Sparrow PLT 263 103/ul Normal 150-450 [facility] Comment on above: Performed By: #### C BC #### [facility] [address] [place] [address] Dr. Delonte Sparrow RBC 4.97 106/ul Normal 4.20-5.40 [facility] Comment on above: Performed By: #### C BC #### [facility] [address] [address] [address] Delonte Sparrow WBC 6.1 103/ul Normal 4.0-11.0 [facility] Comment on above: Performed By: #### C BC #### [facility] [address] [place] [address] Dr. Delonte Sparrow FREE THYROXINE INDEX T7on FTI 2.61 Normal 1.30-4.50 [facility] Comment on above: Performed By: #### L IPA, CMP, NONI #### [facility] [address] [place] [address] Dr. Delonte Sparrow T3U 33.0 % Normal 30.0-39.0 [facility] Comment on above: Performed By: #### L IPA, CMP, NONI #### [facility] [address] [place] [address] Dr. Delonte Sparrow T4 [Mass/Vol] 7.90 ug/dL Normal 4.80-13.90 [facility] Comment on above: Performed By: #### L IPA, CMP, NONI #### [facility] [address] [place] [address] Dr. Delonte Sparrow GLYCOHEMOGLOBIN A1Con 2022 ADA RECOMMENDATION SEE BELOW Normal [facility] Comment on above: Result Comment: ADA RECOMMENDED LIMIT 4.0 - 6.0 ADA THERAPEUTIC TARGET < 7.0 ACTION SUGGESTED > 7.0 Performed By: #### A 1C #### [facility] [address] [place] [address] Dr. Delnote Sparrow Glucose [Mass/Vol] 105 mg/dL Normal [facility] Comment on above: Performed By: #### A 1C #### [facility] [address] [place] [address] Dr. Delonte Sparrow HbA1c (Bld) [Mass fraction] 5.3 % Normal 4.5-6.2 [facility] Comment on above: Performed By: #### A 1C #### [facility] [address] [place] [address] Dr. Delonte Sparrow IRONon 06-12-2022 Iron [Mass/Vol] 35.0 ug/dL Critically low 50.0-170.0 [facility] Comment on above: Performed By: #### L IPAADELE, NONI #### [facility] [address] [place] [address] Dr. Delonte Sparrow LIPASEon 06-12-2022 Lipase [Catalytic activity/Vol] 130.0 U/L Normal 73.0-393.0 [facility] Comment on above: Performed By: #### L IPA CMP, NONI #### [facility] [address] [place] [address] Dr. Delonte Sparrow TSHon 06-12-2022 TSH 1.741 uIU/mL Normal 0.358-3.740 [facility] Comment on above: Performed By: #### L ADELE OCONNELL, NONI #### [facility] [address] [place] [address] Dr. Delonte Sparrow VITAMIN D 25 OHon 06-12-2022 VIT D 25-OH 20.9 ng/mL Normal [facility] Comment on above: Performed By: #### I AMANDA VITAD #### [facility] [address] [place] [address] Dr. Delonte Sparrow VIT D RANGES SEE BELOW Normal [facility] Comment on above: Result Comment: <20 ng/mL Vit D deficient 20 - <30 ng/mL Vit D insufficient 30 - 100 ng/mL Vit D sufficient >100 ng/mL Potential Toxicity Performed By: #### I AMANDA VITAD #### [facility] [address] [place] [address] Dr. Delonte Sparrow AMYLASEon 08-21-2021 Amylase [Catalytic activity/Vol] 26 U/L Normal 25-115 [facility] Comment on above: Performed By: #### L IPAADELE, NONI #### [facility] [address] [place] [address] Dr. Delonte Sparrow CBC W MANUAL DIFFon 08-22-19 22 ATYPICAL LYMPH # Normal [facility] Comment on above: Performed By: #### C BRITT #### [facility] [address] [address] [address] Delonte Sparrow ATYPICAL LYMPH % Normal [facility] Comment on above: Performed By: #### C BCMAN #### [facility] [address] [place] [address] Dr. Delonte Sparrow BAND # Normal 0.0-0.3 [facility] Comment on above: Performed By: #### C BCMAN #### [facility] [address] [place] [address] Dr. Delonte Sparrow BAND % Normal 0-5 [facility] Comment on above: Performed By: #### C BCMAN #### [facility] [address] [place] [address] Dr. Delonte Sparrow BASOM # 0.00 103/ul Normal 0.00-0.10 [facility] Comment on above: Performed By: #### C BCMAN #### [facility] [address] [place] [address] Dr. Delonte Sparrow BASOM % 0.0 % Critically low 0.2-2.0 [facility] Comment on above: Performed By: #### C BCSEA #### [facility] [address] [place] [address] Dr. Delonte Sparrow BLAST # Normal [facility] Comment on above: Performed By: #### C BCMAN #### [facility] [address] [place] [address] Dr. Delonte Sparrow BLAST % Normal [facility] Comment on above: Performed By: #### C BCMAN #### [facility] [address] [place] [address] Dr. Delonte Sparrow CORRECTED WBC Normal 4.0-11.0 [facility] Comment on above: Performed By: #### C BCMAN #### [facility] [address] [place] [address] Dr. Delonte Sparrow EOS # 15.45 103/ul Critically high 0.00-0.70 [facility] Comment on above: Performed By: #### C BCSEA #### [facility] [address] [place] [address] Dr. Delonte Sparrow EOS% 57.0 % Critically high 0.9-7.0 [facility] Comment on above: Performed By: #### C BRITT #### [facility] [address] [place] [address] Dr. Delonte Sparrow HCT 45.1 % Normal 36.0-48.0 [facility] Comment on above: Performed By: #### C BCSEA #### [facility] [address] [place] [address] Dr. Delonte Sparrow HGB 13.9 g/dl Normal 12.0-16.0 [facility] Comment on above: Performed By: #### C BCSEA #### [facility] [address] [place] [address] Dr. Delonte Sparrow LYMPHM # 2.98 103/ul Normal 1.20-3.80 [facility] Comment on above: Performed By: #### C BRITT #### [facility] [address] [place] [address] Dr. Delonte Sparrow LYMPHM% 11.0 % Critically low 20.5-60.0 [facility] Comment on above: Performed By: #### C BRITT #### [facility] [address] [place] [address] Dr. Delonte Sparrow MCH 23.3 pg Critically low 26.7-34.0 [facility] Comment on above: Performed By: #### C BRITT #### [facility] [address] [place] [address] Dr. Delonte Sparrow MCHC 30.8 g/dl Normal 29.9-35.2 [facility] Comment on above: Performed By: #### C BCSEA #### [facility] [address] [place] [address] Dr. Delonte Sparrow MCV 75.5 fL Critically low 81.0-99.0 [facility] Comment on above: Performed By: #### C BCSEA #### [facility] [address] [place] [address] Dr. Delonte Sparrow METAMYELOCYTE # Normal [facility] Comment on above: Performed By: #### C BCSEA #### [facility] [address] [address] [address] Delonte Sparrow METAMYELOCYTE % Normal [facility] Comment on above: Performed By: #### C BRITT #### [facility] [address] [place] [address] Dr. Delonte Sparrow MONOM# 1.63 103/ul Critically high 0.30-0.80 [facility] Comment on above: Performed By: #### C BRITT #### [facility] [address] [place] [address] Dr. Delonte Sparrow MONOM% 6.0 % Normal 1.7-12.0 [facility] Comment on above: Performed By: #### C BRITT #### [facility] [address] [place] [address] Dr. Delonte Sparrow MPV 9.9 fL Normal 9.5-13.5 [facility] Comment on above: Performed By: #### C BRITT #### [facility] [address] [place] [address] Dr. Delonte Sparrow MYELOCYTE # Normal [facility] Comment on above: Performed By: #### C BRITT #### [facility] [address] [place] [address] Dr. Delonte Sparrow MYELOCYTE % Normal [facility] Comment on above: Performed By: #### C BRITT #### [facility] [address] [place] [address] Dr. Delonte Sparrow NRBC Normal [facility] Comment on above: Performed By: #### C BRITT #### [facility] [address] [place] [address] Dr. Delonte Sparrow PLT 343 103/ul Normal 150-450 [facility] Comment on above: Performed By: #### C BRITT #### [facility] [address] [place] [address] Dr. Delonte Sparrow RBC 5.97 106/ul Critically high 4.20-5.40 [facility] Comment on above: Performed By: #### C BRITT #### [facility] [address] [place], [place] [id number] Dr. Delonte Sparrow RDW 16.9 % Critically high 11.0-15.0 [facility] Comment on above: Performed By: #### C BRITT #### [facility] [address] [address] [address] Delonte Sparrow SEG # 7.05 103/ul Critically high 1.40-6.50 [facility] Comment on above: Performed By: #### C BRITT #### [facility] [address] [address] [address] Dleonte Sparrow SEG % 26.0 % Critically low 43.0-75.0 [facility] Comment on above: Performed By: #### Pravin DE LA TORRE #### [facility] [address] [address] [address] Delonte Sparrow WBC 27.1 103/ul Critically high 4.0-11.0 [facility] Comment on above: Performed By: #### Pravin DEL A TORRE #### [facility] [address] [address] [address] ABD/PELV W CONon [...] by: DWIGHT TOBAR Date: 2021-08-21 16:48 Normal [facility] LIPASEon 08-21-2021 Lipase [Catalytic activity/Vol] 58.0 U/L Critically low 73.0-393.0 [facility] Comment on above: Performed By: #### L IPA CMP, NONI #### [facility] [address] [place], [place] [address] Dr. Delonte Sparrow PROF 14(COMP METB)on 022 Albumin [Mass/Vol] 3.6 g/dL Normal 3.4-5.0 [facility] Comment on above: Performed By: #### L IPA CMP, NONI #### [facility] [address] [place], [place] [address] Dr. Delonte Sparrow Albumin/Globulin [Mass ratio] 1.0 {ratio} Normal [facility] Comment on above: Performed By: #### L IPA, CMP, NONI #### [facility] [address] [address] [address] Delonte Sparrow ALP [Catalytic activity/Vol] 125 U/L Critically high 46-116 [facility] Comment on above: Performed By: #### L IPA, CMP, NONI #### [facility] [address] [address] [address] Delonte Sparrow ALT [Catalytic activity/Vol] 27 U/L Normal 14-59 [facility] Comment on above: Performed By: #### L IPA, CMP, NONI #### [facility] [address] [address] [address] Delonte Sparrow Anion gap [Moles/Vol] 12.7 mmol/L Normal [facility] Comment on above: Performed By: #### L IPA, CMP, NONI #### [facility] [address] [address] [address] Delonte Sparrow AST [Catalytic activity/Vol] 15 U/L Normal 15-37 [facility] Comment on above: Performed By: #### L IPA, CMP, NONI #### [facility] [address] [address] [address] Delonte Sparrow Bilirubin [Mass/Vol] 0.3 mg/dL Normal 0.2-1.0 [facility] Comment on above: Performed By: #### L IPA, CMP, NONI #### [facility] [address] [address] [address] Delonte Sparrow Calcium [Mass/Vol] 8.2 mg/dL Critically low 8.5-10.1 [facility] Comment on above: Performed By: #### L IPA, CMP, NONI #### [facility] [address] [address] [address] Delonte Sparrow Chloride [Moles/Vol] 103 mmol/L Normal 98-107 [facility] Comment on above: Performed By: #### L IPA, CMP, NONI #### [facility] [address] [address] [address] Delonte Sparrow CO2 [Moles/Vol] 29.2 mmol/L Normal 21.0-32.0 [facility] Comment on above: Performed By: #### L IPA, CMP, NONI #### [facility] [address] [address] [address] Delonte Sparrow Creatinine [Mass/Vol] 0.81 mg/dL Normal 0.55-1.02 [facility] Comment on above: Performed By: #### L IPA, CMP, NONI #### [facility] [address] [address] [address] Delonte Sparrow EGFR-AF MALDIVIAN >60 Normal >=60 [facility] Comment on above: Performed By: #### L IPA, CMP, NONI #### [facility] [address] [address] [address] Delonte Sparrow EGFR-NON AF MALDIVIAN >60 Normal >=60 [facility] Comment on above: Performed By: #### L IPA, CMP, NONI #### [facility] [address] [address] [address] Delonte Sparrow Globulin (S) [Mass/Vol] 3.7 g/dL Normal [facility] Comment on above: Performed By: #### L IPA, CMP, NONI #### [facility] [address] [address] [address] Delonte Sparrow Glucose [Mass/Vol] 103 mg/dL Normal 74-106 [facility] Comment on above: Performed By: #### L IPA, CMP, NONI #### [facility] [address] [address] [address] Delonte Sparrow Potassium [Moles/Vol] 3.9 mmol/L Normal 3.5-5.1 [facility] Comment on above: Performed By: #### L IPA, CMP, NONI #### [facility] [address] [address] [address] Delonte Sparrow Protein [Mass/Vol] 7.3 g/dL Normal 6.4-8.2 [facility] Comment on above: Performed By: #### L IPA, CMP, NONI #### [facility] [address] [address] [address] Delonte Sparrow Sodium [Moles/Vol] 141 mmol/L Normal 136-145 [facility] Comment on above: Performed By: #### L IPA, CMP, NONI #### [facility] [address] [address] [address] Delonte Sparrow Urea nitrogen [Mass/Vol] 16.0 mg/dL Normal 7.0-18.0 [facility] Comment on above: Performed By: #### L IPA, CMP, NONI #### [facility] [address] [address] [address] Delonte Sparrow Urea nitrogen/Creatinine [Mass ratio] 19.8 mg/mg Normal [facility] Comment on above: Performed By: #### L IPA, CMP, NONI #### [facility] [address] [address] [address] Delonte Awan 06-22-2020 L Specimen: [id number] Received: 06/22/20 Status: DB Black Num: [id number] Spec Type: Surgical Subm Dr: René Holley Jr, DO Tissues: A Small Intestine - Biopsy/Polyp (TERMINAL ILEUM) B Colon - Polyp (RECTOSIGMOID POLYP) Procedures: HE Stain/4, Gross/Micro L4/2 Patient Age/Sex Location Account Attending Physician Malu Steele 55/F [id number] René Holley Jr, DO SPEC NUM: [id number] RECD: 06/22/20 STATUS: DB BLACK NUM: [id number] GAVINO: 06/22/20[facility] DR: René Holley Jr, ENTERED: 06/22/20 [facility] DR: SONYA TYPE: Surgical DEPT: S ORDERED: [...] Entirely submitted in one cassette labeled A1. (SM/YJ) B. Received in formalin labeled with the patient's name, number and rectosigmoid polyp is a 1 cm martin, granular, slightly lobulated and sessile mucosal polyp. The presumed resection margin is inked blue and the fragment is trisected. Entirely submitted in one cassette labeled B1. (SM/YJ) Specimen: [id number] Received: 06/22/20 Status: DB Black Num: [id number] Spec Type: Surgical Subm Dr: René Holley Jr, DO Tissues: A Small Intestine - Biopsy/Polyp (TERMINAL ILEUM) B Colon - Polyp (RECTOSIGMOID POLYP) Procedures: HE Stain/4, Gross/Micro L4/2 Patient: Malu Steele [id number] (Continued) Specimen: Received: 06/22/20 (Continued) Signed (signature on file) Iveth Patel MD 06/25/20 1528 Specimen: Received: 06/22/20 Status: DB Black Num: [id number] Spec Type: Surgical Subm Dr: René Holley Jr, DO Tissues: A Small Intestine - Biopsy/Polyp (TERMINAL ILEUM) B Colon - Polyp (RECTOSIGMOID POLYP) Procedures: HE Stain/4, Gross/Micro L4/2 Patient: Malu Steele [id number] (Continued) Specimen: [id number] Received: 06/22/20-9851 (Continued) Microscopic Description A. Two glass slides with H E stained material have been examined. The microscopic findings support the above pathologic diagnosis. B. Two glass slides with H E stained material have been examined. The microscopic findings support the above pathologic diagnosis. CPT Codes 88934?2 Specimen: [id number] Received: 06/22/20 Status: DB Black Num: [id number] Spec Type: Surgical Subm Dr: René Holley Jr, DO Tissues: A Small Intestine - Biopsy/Polyp (TERMINAL ILEUM) B Colon - Polyp (RECTOSIGMOID POLYP) Procedures: HE Stain/4, Gross/Micro L4/2 Patient: Malu Steele [id number] (Continued) Signed (signature on file) Iveth Patel MD 06/25/20 1528 Normal [facility] COVID[facility]19 [facility] SARS-CoV-2 (COVID-19) RNA WES+probe Ql (Unsp spec) Negative Normal Negative [facility] Comment on above: Order Comment: Healt hcare Worker?: N Result Comment: Test ing for SARS-CoV-2 by RT-PCR This test was developed and its performance characteristics determined by [employer] ([employer]) and validated at the [facility]. This test has not been FDA [...] is terminated or revoked sooner. PERFORMED BY: [place] [address] PATHOLOGIST [employer] NIALL MILAN M.D. Performed By: #### C OVID-19 [facility] #### [address] COVID-19 Positive/Negativeon 06-20-2020 SARS-CoV-2 (COVID-19) N gene WES+probe Ql (Resp) Negative Negative [facility] Comment on above: Testing for SARS-CoV -2 by RT-PCRThis test was developed and its performance characteristics determined by [employer] ([employer]) and validated at the [facility]. 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 - Endocervical/transfo rmation zone component present. - Scant cellularity, predominantly inflammatory exudate. Descriptive Diagnosis: Negative for intraepithelial lesion or malignancy. Shift in bruce suggestive of bacterial vaginosis. Rivet Tosser: HARJIT Valera(ASCP) Electronically Signed Out bessie/04/23/2018 [facility] Comment on above: Performed By: #### P PPVP #### [facility] [address] [place] [address] [id number] [facility] Shift Lead: Karthik Lynn MD Vital Signs Date Time Vital Sign Value Performing Clinician Facility 10-07-2022 09:30-0400 Body height 170.18 cm Philippe Wise Other [facility] Other 10-07-2022 09:30-0400 Body mass index (BMI) [Ratio] 34.45 kg/m2 Philippe Wise Other [facility] Other 10-07-2022 09:30-0400 Body weight 99.79 kg Philippe Wise Other [facility] Other 10-07-2022 09:30-0400 Diastolic blood pressure 83 mm[Hg] Philippe Wise Other [facility] Other 08-15-2023 09:30-0400 Systolic blood pressure 139 mm[Hg] Philippe Wise Other [facility] Other 08-29-2021 12:00-0400 Body height 170.18 cm René Holley Other [facility] Other 08-29-2021 12:00-0400 Body mass index (BMI) [Ratio] 35.55 kg/m2 René Holley Other [facility] Other 08-29-2021 12:00-0400 Body weight 102.97 kg René Holley Other [facility] Other 08-29-2021 12:00-0400 Diastolic blood pressure 89 mm[Hg] René Holley Other [facility] Other 08-29-2021 12:00-0400 Systolic blood pressure 142 mm[Hg] René Holley Other [facility] Other Encounters Encounter Date Encounter Type Care Provider Facility Start: 07-01-2023 End: 07-02-2023 ambulatory [facility] Start: 05-26-2023 End: 05-26-2023 ambulatory [facility] Start: 03-30-2023 End: 03-30-2023 ambulatory [facility] Start: 10-07-2022 End: 10-07-2022 ambulatory Philippe Wise Other [facility] Other Start: 10-07-2022 Patient encounter procedure Philippe Wise [facility] Start: 07-07-[address] [facility] Start: 06-12-2022 End: 06-13-[address] KAYY PANIAGUA . Facility:[facility] Start: 08-29-2021 End: 08-29-2021 ambulatory René Holley Other [facility] Other Start: 08-29-2021 Office outpatient vi sit 25 minutes René Holley [facility] Start: 08-21-2021 End: 08-22-[address] KAYY PANIAGUA . Facility:[facility] Start: 06-20-2020 End: 06-20-2020 Patient encounter procedure Nader Paniagua Work Phone: -Pre-Surgical Testing Start: 04-12-2018 Encounter for gynecological examination (general) (routine) without abnormal findings [facility] Start: 04-12-2018 End: 04-13-2018 Patient encounter procedure [facility] Procedures Date Procedure Procedure Detail Performing Clinician Start: 04-12-2018 Screen pap by gisela cleveland md supv [facility] Payers Date Payer Category Payer Unknown [id number] 1965 Unknown [id number] 1965 Unknown [id number] 1965 Unknown [id number] 1958 Private Health Insurance [id number] Self-pay [employer] [id number] Unknown [employer] [id number] Social History Date Type Detail Facility Start: 11-03-2018 Tobacco smoking status NHIS Ex-smoker (finding) [facility] Start: 1965 Sex Assigned At Female F [facility] Sex Assigned At Sex Assigned At Bir th [facility] Other Goals Date Patient Goal Desired Activity /State Progress note 07-01-2023 Note Date & Type Note Facility 07-01-2023 Note [facility] Sleepiness S alexey Please rate the following as to how likely the patient would be to dose off or fall asleep for each of the situations Never = 0 Slight chance = 1 Moderate Chance = 2 High Chance = 3 Sitting and Reading... 1 Watching TV...1 Sitting inactive in a public place (theater, meeting) ...0 As a passenger in a car for an hour without a break... 2 Lying down in the afternoon to res t...3 Sitting and talking to someone... 0 Sitting quietly after lunch (without alcohol)... 3 In a car, while stopped for a few minutes in traffic... 1 Total score...11 Please check the symptoms/complaints of the patient Please answer (Y)es or (N)o Snoring/Loud Snoring... Witnessed Apneas... Excessive daytime sleepiness... Waking gasping/choking... Morning Headaches... Complaints of restless legs... Wakes with sour taste... Difficulty following directions... Confusion/Forgetfulness... Sleep walking/talks in your sleep... Grinds teeth... Difficulty staying asleep ... Difficulty initiating sleep... Acting out your dreams... Difficulty ambulating... Incontinence... [facility] Progress note 07-01-2023 Note Date & Type Note Facility 07-01-2023 Note Pt given verbal and written instructions and demo of HSAT device. Pt to return unit to registration 510 Quality of life Answer each question by shading in the pilot station completely. Choose only one answer for each question, please choose the answer that best matches your situation. Mobility 1 1 I have no problem walking about 2 I have some problems walking about 3 I am confined to bed Self-care 1 1 I have no problems with self-care 2 I have some problems with self-care 3 I am unable to dress myself Usual activity 1 1 I have no problems performing my usual activities 2 I have some problems with performing my usual activities 3 I am unable to perform my usual activities Pain/Discomfort 2 1 I have no pain or discomfort 2 I have moderate pain and discomfort 3 I have extreme pain and discomfort Anxiety/Depression 1 1 I am not anxious or depressed 2 I am moderately anxious or depressed 3 I am extremely anxious or depressed To help you communicate how good or bad your health state is, we have drawn a scale on which to radames your overall rating of your health. 0 represents your health at its worst, 100 represents your health at its best. Please place an X on the scale to show how good or bad your health is today. 5 10 15 20 25 30 35 40 45 50 55 60 65 70 75 80 85 90 95 100 X [facility] Progress note 05-26-2023 Note Date & Type Note Facility 05-26-2023 Note [facility] Consult Note Reason for visit: NSVT HPI: Malu Steele is a 58 y.o. year old with past medical history of A-fib RVR. She was admitted to [facility] with complaints of A-fib which was believed to occur in the setting of an infection, she had CT imaging negative for PE and had an echocardiogram showed preserved LV function with biatrial enlargement. Has been feeling well with just some complaints of palpitations. She had a Holter monitor 04/06/2023 which showed 1 episode of 3 beat NSVT and an episode of A-fib with the longest lasting 22 hours. 8% A-fib burden. . She was seen by Lou who ordered a stress test which was performed on 04/22/2023. the nuclear portion of the study was negative for any ischemia and exercise portion was normal f. patient exercised for 6 minutes and 40 seconds reaching stage III and achieving 9 METS with the increase of heart rate from resting rate of 59 to max of 157 achieving 93%. there was no comment about the PVCs on this EKG 03/30/2023 sinus rhythm PMH: Past Medical History: Diagnosis Date Abnormal ECG Arrhythmia Atrial fibrillation (CMS/HCC) Crohn's disease (CMS/HCC) PSH: Past Surgical History: Procedure Laterality Date SECTION, CLASSIC HYSTERECTOMY SH: Social Determinants of Health Tobacco Use: Medium Risk (05/26/2023) Patient History Smoking Tobacco Use: Former Smokeless Tobacco Use: Never Passive Exposure: Not on file Alcohol Use: Not on file Financial Resource Strain: Not on file Food Insecurity: Not on file Transportation Needs: Not on file Physical Activity: Not on file Stress: Not on file Social Connections: Not on file Intimate Partner Violence: Unknown (04/17/2023) [place] Safety & Environment Fear of Current or Ex-Partner: Not on file Emotionally Abused: Not on file Physically Abused: Not on file Sexually Abused: Not on file Physically or Sexually Abused: Not on file Depression: Not on file Housing Stability: Not on file Utilities: Not on file Allergies: Allergies Allergen Reactions Codeine Meperidine Unknown Weight: 103kg Visit Vitals BP 120/84 (BP Location: Left arm, Patient Position: Sitting, BP Cuff Size: Adult) Pulse 71 Resp 12 Ht 1.702 m (5' 7 ) Wt 103 kg (228 lb) SpO2 95% BMI 35.71 kg/m??? Smoking Status Former BSA 2.21 m??? Meds: Current Outpatient Medications on File Prior to Visit Medication Sig Dispense Refill calcium carbonate 600 mg calcium (1,500 mg) tablet every 12 (twelve) hours. desvenlafaxine (Pristiq) 100 mg 24 hr tablet 100 mg 1 (one) time each day. dilTIAZem CD (Cardizem CD) 180 mg 24 hr capsule Take 1 capsule (180 mg) by mouth in the morning. 30 capsule 11 Eliquis 5 mg tablet Take 5 mg by mouth in the morning and at bedtime. pantoprazole (ProtoNix) 40 mg EC tablet TAKE 1 TABLET BY MOUTH TWICE A DAY FOR 30 DAYS [DISCONTINUED] alendronate (Fosamax) 70 mg tablet 1 tablet 30 minutes before the first food, beverage or medicine of the day with plain water Orally [DISCONTINUED] diclofenac (Voltaren) 75 mg EC tablet if needed. No current facility-administered medications on file prior to visit. ROS: Review of Systems Cardiovascular: Positive for dyspnea on exertion (improving) and palpitations (improving). All other systems reviewed and are negative. Physical Exam: Constitutional General Appearance: well-nourished, well-developed, appears stated age Level of Distress: comfortable Psychiatric Mental Status: alert, normal affect Orientation: oriented to time, place, and person Insight: good judgement Eyes Lids and Conjunctivae: non-injected, no xanthelasma ENMT Ears: no lesions on external ear Nose: no lesions on external nose Oropharynx: no cyanosis, no pallor Neck Neck: supple, trachea midline Carotid Arteries: bilateral normal upstroke, no bruits Jugular Veins: normal jugular venous pressure Thyroid: not enlarged Lungs Respiratory Effort: unlabored Chest Exam: normal curvature, no thoracic deformity Auscultation: clear, no wheezing, no rales, no rhonchi Cardiovascular Rate And Rhythm: regular Heart Sounds: normal S1, normal s2, no gallop Systolic Murmur: not heard Diastolic Murmur: not heard Extremities: no cyanosis, no edema, no peripheral signs of emboli Peripheral Pulses Radial Pulse: normal Abdomen Inspection and Palpation: soft, non distended, no bruit, non tender Musculoskeletal Inspection: no joint swelling Neurologic Gait: normal gait Skin Inspection and Palpation: warm and dry Nails: no clubbing Labs: @LABRESULTS@ No results found for: CHOLESTEROL TOTAL , HDL , LDL CALC , LDL DIRECT , TRIGLYCERIDES , TSH , T3 TOTAL , T4 TOTAL , THYROID PEROXIDASE AB , BNP EKG: No results found for this or any previous visit (from the past 4464 hour(s)). Echo: 04/06/23 Stress test: Coronary angiogram: @CATH@ Diagnostic Imaging: Holter monitor Assessm (more content not included)... [facility] Progress note 03-30-2023 Note Date & Type Note Facility 03-30-2023 Note [facility] Consult Note Reason for visit: HPI: Malu Steele is a 58 y.o. year old with past medical history of A-fib RVR. She was admitted to [facility] with complaints of A-fib, she had CT imaging negative for PE and had an echocardiogram showed preserved LV function with biatrial enlargement. EKG 03/30/2023 sinus rhythm Has been feeling well with just some complaints of palpitations She had a Holter monitor 04/06/2023 which showed 1 episode of 3 beat NSVT and an episode of A-fib with the longest lasting 22 hours. 8% A-fib burden We discussed needing to rule out ischemia to consider antiarrhythmic medications versus ablation, and also rule out ischemia for NSVT PMH: Past Medical History: Diagnosis Date Abnormal ECG Arrhythmia Atrial fibrillation (CMS/HCC) Crohn's disease (CMS/HCC) PSH: Past Surgical History: Procedure Laterality Date SECTION, CLASSIC HYSTERECTOMY SH: Social Determinants of Health Tobacco Use: Medium Risk (03/30/2023) Patient History Smoking Tobacco Use: Former Smokeless Tobacco Use: Never Passive Exposure: Not on file Alcohol Use: Not on file Financial Resource Strain: Not on file Food Insecurity: Not on file Transportation Needs: Not on file Physical Activity: Not on file Stress: Not on file Social Connections: Not on file Intimate Partner Violence: Unknown (03/30/2023) [place] Safety [place] Environment Fear of Current or Ex-Partner: Not on file Emotionally Abused: Not on file Physically Abused: Not on file Sexually Abused: Not on file Physically or Sexually Abused: Not on file Depression: Not on file Housing Stability: Not on file Utilities: Not on file Allergies: Allergies Allergen Reactions Codeine Weight: 103kg Visit Vitals BP 123/87 (BP Location: Right arm, Patient Position: Sitting) Pulse 78 Ht 1.702 m (5' 7 ) Wt 103 kg (228 lb) SpO2 97% BMI 35.71 kg/m??? Smoking Status Former BSA 2.21 m??? Meds: Current Outpatient Medications on File Prior to Visit Medication Sig Dispense Refill desvenlafaxine (Pristiq) 100 mg 24 hr tablet 100 mg 1 (one) time each day. diclofenac (Voltaren) 75 mg EC tablet if needed. dilTIAZem CD (Cardizem CD) 120 mg 24 hr capsule Take 120 mg by mouth in the morning. Eliquis 5 mg tablet Take 5 mg by mouth in the morning and at bedtime. pantoprazole (ProtoNix) 40 mg EC tablet TAKE 1 TABLET BY MOUTH TWICE A DAY FOR 30 DAYS No current facility-administered medications on file prior to visit. ROS: Cardio Basic Cardiovascular Symptoms: no lightheadedness, no leg edema, no syncope, no orthopnea, no PND, no claudication, Constitutional Constitutional: no fever, no night sweats, no significant weight gain, no significant weight loss, no exercise intolerance Eyes Eyes: no dry eyes, no irritation, no vision change ENMT Ears: no difficulty hearing, no ear pain Nose: no frequent nosebleeds, Mouth/Throat: no sore throat, no bleeding gums, no snoring, no dry mouth, no mouth ulcers, no oral abnormalities, no teeth problems Respiratory Respiratory: no cough, no wheezing, no coughing up blood, no sleep apnea Musculoskeletal Musculoskeletal: no muscle aches, no muscle weakness, joint pain+, no back pain, no swelling in the extremities Integumentary Skin no rash, no ulcer, no varicosities, no discoloration, no pruritus Neurologic Neurologic: no loss of consciousness, no weakness, no numbness, no seizures, no dizziness, no headaches Psychiatric Psych: no depression, feeling safe in relationship, no alcohol abuse, Hematologic/Lymphatic Hematologic/Lymphatic no swollen glands, no bruising Physical Exam: Constitutional General Appearance: well-nourished, well-developed, appears stated age Level of Distress: comfortable Psychiatric Mental Status: alert, normal affect Orientation: oriented to time, place, and person Insight: good judgement Eyes Lids and Conjunctivae: non-injected, no xanthelasma ENMT Ears: no lesions on external ear Nose: no lesions on external nose Oropharynx: no cyanosis, no pallor Neck Neck: supple, trachea midline Carotid Arteries: bilateral normal upstroke, no bruits Jugular Veins: normal jugular venous pressure Thyroid: not enlarged Lungs Respiratory Effort: unlabored Chest Exam: normal curvature, no thoracic deformity Auscultation: clear, no wheezing, no rales, no rhonchi Cardiovascular Rate And Rhythm: regular Heart Sounds: normal S1, normal s2, no gallop Systolic Murmur: not heard Diastolic Murmur: not heard Extremities: no cyanosis, no edema, no peripheral signs of emboli Peripheral Pulses Radial Pulse: normal Abdomen Inspection and Palpation: soft, non distended, no bruit, non tender Musculoskeletal Inspection: no joint swelling Neurologic Gait: normal gait Skin Inspection and Palpation: warm and dry Nails: no clubbing Labs: @LABRESULTS@ No results found for: CHOLES (more content not included)... [facility] Progress note 03-30-2023 Note Date & Type Note Facility 03-30-2023 Note Patient here for [facility] per Ivon Paz CNP. She was seen as inpatient consult for new onset afib. Palpitations are less now and she states she feels her HR is improving. Denies chest pain and LE edema. Denies lightheadedness/syncope and bleeding on Eliquis. She stopped smoking a year or so ago but has been vaping until recent hospitalization. Review of Systems Cardiovascular: Positive for dyspnea on exertion (improving) and palpitations (improving). All other systems reviewed and are negative. [facility] Evaluation note 10-07-2022 Note Date & Type Note Facility 10-07-2022 Evaluation note Encounter Date Diagnosis Assessment Notes Sep, GERD without esophagitis (ICD-10 - K21.9) Sep, Irritable bowel syndrome with diarrhea (ICD-10 - K58.0) Sep, Other Patient still having diarrhea and cramping in the lower abd area. Patient reports having these episodes at least one time weekly. Patient can restart dicyclomine 20mg TID PRN. [facility] Other Evaluation note 08-29-2021 Note Date & Type Note Facility 08-29-2021 Evaluation note Encounter Date Diagnosis Assessment Notes Aug, Crohns disease (ICD-10 - K50.90) Aug, Viral gastroenteritis (ICD-10 - A08.4) Continue prednisone as prescribed by PCP Start Cipro 500mg bid for 7 days Patient to call when she finished prednisone and cipro if symptoms do not improve. Follow up in 4 weeks. [facility] Other History general Narrative - Reported 07-24-2020 Note Date & Type Note Facility 07-24-2020 History general N arrative - Reported Type Medical History Crohns disease Surgical History C section X2 Surgical History hysterectomy 07/2020 [facility] Other Evaluation note Note Date & Type Note Facility Evaluation note No Assessments Information Avail able [facility] Summary Purpose Family History No Family History Records Found Relationship Condition Age at Onset Recorded Date/T liza father Malignant neoplasm Unknown Not Specified Chronic obstructive pulmonary disease Un known sister Malignant neoplasm of tongue Unknown Advance Directives No Advanced Directives Records Found Advance Directive Response Recorded Date/ Time Advance Directives No October 9:45am Chief Complaint and Reason for Visit Chief Complaint Gerd, Crohn's Diseas e Additional Source Comments INFORMATION SOURCE (unrecogn ized section and content) DATE CREATED AUTHOR 04/25/2018 [facility] DATE CREATED AUTHOR AUTHOR'S ORGANIZ ATION 04/04/2021 [facility] DATE CREATED AUTHOR AUTHOR'S ORGANIZ ATION 07/07/2022 [facility] DATE CREATED AUTHOR AUTHOR'S ORGANIZ ATION 07/03/2023 [facility] REASON FOR VISIT (unrecogniz ed section and [...] BE BASED ON THE PRIMARY CLINICAL RECORDS. [facility] [employer] [facility]. provides no warranty or guarantee of the accuracy or completeness of information in this document.
== END 2023-09-18 09:00 | disposition home or self-care (01) ==
LOC: MAMMO 08:59
PROVIDERS: PCP Family Medicine; Visit Provider Family Medicine
DX: Z12.31 Encounter for screening mammogram for malignant neoplasm of breast (principal); Z80.8 Family history of malignant neoplasm of other organs or systems
CPT/HCPCS: 77063; 77067

== ENCOUNTER 2024-01-27 14:31 | Outpatient (OUT) | payer OTHER, SELFPAY ==
--- NOTE | 2024-01-27 14:37 | XR_ITS ---
The [address] [address] Patient Name: ESSIE STEELE MRN: [id number] date: 1965 Sex: F Assigned Patient Location: [facility] Current Patient Location: [facility] Accession/Order Number: [id number] Exam Date: 01/27/2024 14:45 Report Date: 01/27/2024 15:58 At the request of: NON-STAFF PHYSICIAN Procedure: XR hand WILMA 2V EXAMINATION: XR hand WILMA 2V HISTORY: Arthitis COMPARISON: No relevant comparison available. FINDINGS: RIGHT FINDINGS: BONES: Normal. No significant arthropathy or acute abnormality. SOFT TISSUES: Negative. No visible soft tissue swelling. OTHER: Negative. LEFT FINDINGS: BONES: Normal. No significant arthropathy or acute abnormality. SOFT TISSUES: Negative. No visible soft tissue swelling. OTHER: Negative. XR/XR hand WILMA 2V IMPRESSION: RIGHT CONCLUSION: No acute abnormality LEFT CONCLUSION: No acute abnormality Electronically authenticated by: HELEN MCKEE Date: 01/27/2024 15:58
--- NOTE | 2024-01-27 14:37 | XR_ITS ---
The [address] [address] Patient Name: ESSIE STEELE MRN: [id number] date: 1965 Sex: F Assigned Patient Location: [facility] Current Patient Location: Accession/Order Number: [id number] Exam Date: 01/27/2024 14:45 Report Date: 01/28/2024 07:24 At the request of: NON-STAFF PHYSICIAN Procedure: XR pelvis 1-2V PROCEDURE: XR pelvis 1-2V COMPARISON: None. HISTORY: Arthritis FINDINGS: BONES:No acute fracture or dislocation. Mild bilateral hip osteoarthritis SOFT TISSUES:Negative. No visible soft tissue swelling. EFFUSION:None visible. OTHER: Negative. XR/XR pelvis 1-2V IMPRESSION: Mild bilateral hip osteoarthritis Electronically authenticated by: HELEN MCKEE Date: 01/28/2024 07:24
--- NOTE | 2024-01-27 14:37 | XR_ITS ---
[address] [address] Patient Name: ESSIE STEELE MRN: [id number] date: 1965 Sex: F Assigned Patient Location: [facility] Current Patient Location: [facility] Accession/Order Number: [id number] Exam Date: 01/27/2024 14:45 Report Date: 01/27/2024 16:00 At the request of: NON-STAFF PHYSICIAN Procedure: XR shoulder WILMA min 2V EXAMINATION: XR shoulder WILMA min 2V HISTORY: Arthritis COMPARISON: No relevant comparison available. FINDINGS: RIGHT FINDINGS: BONES: No acute fracture or dislocation. Mild acromioclavicular joint osteoarthropathy. Glenohumeral joint is intact SOFT TISSUES: Negative. No visible soft tissue swelling. OTHER: Negative. LEFT FINDINGS: BONES: No acute fracture or dislocation. Mild acromioclavicular joint osteoarthropathy. Glenohumeral joint is intact SOFT TISSUES: Negative. No visible soft tissue swelling. OTHER: Negative. XR/XR shoulder WILMA min 2V IMPRESSION: Mild bilateral acromioclavicular joint osteoarthritis Electronically authenticated by: HELEN MCKEE Date: 01/27/2024 16:00
--- NOTE | 2024-01-27 14:37 | XR_ITS ---
The [address] [address] Patient Name: ESSIE STEELE MRN: [id number] date: 1965 Sex: F Assigned Patient Location: [facility] Current Patient Location: [facility] Accession/Order Number: [id number] Exam Date: 01/27/2024 14:45 Report Date: 01/27/2024 15:57 At the request of: NON-STAFF PHYSICIAN Procedure: XR sacroiliac joint WILMA PROCEDURE: XR sacroiliac joint WILMA COMPARISON: None. HISTORY: Arthritis FINDINGS: BONES:No fracture, acute abnormality, or significant arthropathy. SOFT TISSUES:Negative. No visible soft tissue swelling. EFFUSION:None visible. Sacroiliac joints: Negative. XR/XR sacroiliac joint WILMA IMPRESSION: No acute abnormality of the sacroiliac joints Electronically authenticated by: HELEN MCKEE Date: 01/27/2024 15:57
--- OUTSIDE RECORDS SUMMARY | 2024-01-27 14:48 | XMS_ITS | CCD ---
Author Organization [facility] Care Team Providers Care Cemetery Worker Name Role Phone ADA LUNA Referring Unavailable KAYY PANIAGUA Primary Care Unavailable Nader Paniagua Primary Care Provider [phone] René Ly Attending Provider René Ly Unavailable HOY ., DR SULTANA Admitting Unavailable [...] STRAWSER, DWIGHT Consulting Unavailable Philippe Wise Unavailable GODWIN HARRELL Attending Unavailable LOU MCCLAIN Referring Unavailable LOU MCCLAIN Attending Unavailable KRISHAN RAMIREZ Attending Unavailable SUSANNE PAZ Attending Unavailable Unavailable Primary Care Provider UnavailRENNY Nielson Referring Unavailable RENNY BARON Attending Unavailable KRISTY EVANGELISTA Referring Unavailable KRISTY EVANGELISTA Referring Unavailable KRISTY EVANGELISTA Attending Unavailable SELF Referring Unavailable Allergies Allergy Classification Reported Allergen(s) Allergy Type Date of Onset Reaction(s) Facility (8 sources) Codeine; Translations: [CODEINE] Drug Allergy 9 GI Upset, Other: See Comments [facility] Repository (8 sources) Meperidine; Translations: [MEPERIDINE] Drug Allergy 1 Unknown, Vomiting [facility] (1 source) Codeine Drug Allergy [facility] (1 source) Meperidine Drug Allergy [facility] Medications Current Medications Medication Drug Class(es) Dates Sig (Normalized) Sig (Original) Acetaminophen (2 sources) Tylenol PRN Acti ve Tylenol Active acetaminophen 325 mg / butalbital 50 mg / caffeine 40 mg oral tablet (4 sources) Barbiturate, Central Nervous System Stimulant, Methylxanthine Start: 04-06-2017 take 1 tablet by mouth once acetaminophen 325 mg-caffeine 40 mg-butalbital 50 mg (FIORICET) per tablet Take 1 tablet by mouth. 04/06/2017 Active aspirin 81 mg delayed release oral tablet (4 sources) Platelet Aggregation Inhibitor, Nonsteroidal Anti-inflammatory Drug aspirin, enteric coated (ASPIRIN, ENTERIC COATED) 81 mg EC tablet Take 81 mg by mouth. Active celecoxib 100 mg oral capsule (2 sources) Nonsteroidal Anti-inflammatory Drug Start: 01-18-2024 take 1 capsule by mouth twice daily celecoxib (CELEBREX) 100 mg capsule Take 1 capsule by mouth two times a day. 60 capsule 1 01/18/2024 Active ciprofloxacin 500 mg oral tablet (1 source) Quinolone Antimicrobial Start: 08-29-2021 take 1 tablet by mouth every twelve hours Cipro 500 MG 1 tablet Orally every 12 hrs for 7 days Aug, Active 24 hr desvenlafaxine succinate 25 mg extended release oral tablet (7 sources) Serotonin and Norepinephrine Reuptake Inhibitor Start: 11-02-2018 take 1 tablet by mouth once daily, then take 1 tablet by mouth every twenty-four hours Desvenlafaxine Succinate (Pristiq) 25 mg Tablet Extended Release 24 Hr Active 25 MG PO Daily November 02, 2018 2:15pm take 1 tablet by rosario th once daily, then take 1 tablet by mouth every twenty-four hours desvenlafaxine ER (PRISTIQ) 100 mg 24 hr tablet Take 100 mg by mouth once daily. Active Desvenlafaxine S uccinate ER Active dicyclomine hydrochloride 20 mg oral tablet (6 sources) Anticholinergic Start: 06-22-2020 dicyclomine (B ENTYL) 20 mg tablet as directed. 06/22/2020 Active take 1 tablet by mouth twice sharon ly Dicyclomine HCl 20 MG TAKE 1 TABLET BY MOUTH TWICE A DAY Active 24 hr dilTIAZem hydrochloride 180 mg extended release oral capsule (4 sources) Calcium Channel José Miguel take 1 capsule by mouth once daily in the morning, then take 1 capsule by mouth every twenty-four hours dilTIAZem CD (CARDIZEM CD, CARTIA XT) 180 mg 24 hr capsule Take 180 mg by mouth every morning. Active 84 hr estradiol 0.21174 mg/hr transdermal system (4 sources) Estrogen Start: 4 End: 5 estradiol (VIVELLE-DOT) 0.0375 mg/24 hr patch Apply 1 Patch as directed two times a week. 30 Patch 1 11/23/2023 05/21/2024 Active Excedrin Extra Strength (2 sources) Excedrin Extra Strength PRN Active Excedrin Extra S trength Active fluticasone propionate 0.05 mg/actuat metered dose nasal spray (5 sources) Corticosteroid Start: 11-02-2018 Fluticasone Pr opionate (Flonase Allergy Relief) 50 mcg/actuation [place],Suspension Active 1 SPRAY INTRANASAL Daily November 02, 2018 2:15pm Start: 11-02-2018 fluticasone (F LONASE) 50 mcg/actuation nasal spray once daily. 11/02/2018 Active loratadine 10 mg oral tablet (7 sources) Start: 11-02-2018 loratadine (CL ARITIN) 10 mg tablet once daily. 11/02/2018 Active Claritin Active 24 hr mesalamine 375 mg extended release oral capsule (1 source) Aminosalicylate Start: 11-03-2018 take 1 capsule by mouth once daily Mesalamine (Apriso) 0.375 gram capsule,extended release 24hr Active 1.5 GM PO Daily 120 November 03, 2018 9:14am pantoprazole 40 mg delayed release oral tablet (6 sources) Proton Pump Inhibitor Start: 11-11-2023 take 1 tablet by mouth every twelve hours pantopraz[address] (PROTONIX) 40 mg tablet Take 1 tablet by mouth every 12 hours. 11/11/2023 Active Start: 05-31-2020 take 1 tablet by rosario th every twelve hours Pantoprazole Sodium 40 MG [...] abdominal pain] Onset: 2 Episodic Cardiac dysrhythmias (3 sources) Paroxysmal atrial fibrillation; Translations: [Paroxysmal atrial fibrillation] Onset: 4 Chronic Deficiency and other anemia (1 source) Anemia, unspecified; Translations: [ANEMIA UNSPECIFIED] Onset: 3 Episodic Diabetes mellitus without complication (1 source) Other abnormal glucose; Translations: [OTHER ABNORMAL GLUCOSE] Onset: 3 Episodic Esophageal disorders (9 sources) Gastroesophageal reflux disease; Translations: [Gastro-esophageal reflux disease without esophagitis] Onset: 2 Chronic Essential hypertension (4 sources) Essential (primary) hypertension; Translations: [ESSENTIAL PRIMARY HYPERTENSION] Onset: 3 Chronic Gastritis and duodenitis (2 sources) Atrophic gastritis; Translations: [Unspecified chronic gastritis without bleeding] Chronic Gastrointestinal hemorrhage (2 sources) Rectal hemorrhage; Translations: [Hemorrhage of anus and rectum] Episodic Headache; including migraine (1 source) Migraine with aura; Translations: [Migraine with aura, not intractable, with status migrainosus] 11-23-2023 Chronic Hemorrhoids (2 sources) Hemorrhoids; Translations: [Unspecified hemorrhoids] Episodic Menopausal disorders (3 sources) Menopausal symptom; Translations: [Menopausal and female climacteric states] Onset: 4 11-23-2023 Chronic Noninfectious gastroenteritis (2 sources) Ileitis; Translations: [Noninfective gastroenteritis and colitis, unspecified] Episodic Nutritional deficiencies (1 source) Vitamin D deficiency, unspecified; Translations: [VITAMIN D DEFICIENCY UNSPECIFIED] Onset: 3 Chronic Osteoarthritis (3 sources) Arthritis; Translations: [Unspecified osteoarthritis, unspecified site] Onset: 4 11-23-2023 Chronic Other aftercare (1 source) Long-term current use of drug therapy; Translations: [Other manager terminal (current) drug therapy] 01-18-2024 Episodic Other aftercare (1 source) Other group home (current) drug therapy; Translations: [Encounter for long-term (current) use of medications] Onset: Episodic Other connective tissue disease (1 source) Enthesitis; Translations: [Enthesopathy, unspecified] 01-18-2024 Episodic Other gastrointestinal disorders (1 source) Irritable bowel syndrome with diarrhea; Translations: [Irritable bowel syndrome with diarrhea] Chronic Other gastrointestinal disorders (1 source) Irritable bowel syndrome with diarrhea Chronic Other gastrointestinal disorders (2 sources) Abnormal feces; Translations: [Other fecal abnormalities] Episodic Other gastrointestinal disorders (2 sources) Diarrhea; Translations: [Diarrhea, unspecified] Episodic Other non-traumatic joint disorders (1 source) Joint pain; Translations: [Pain in unspecified joint] 01-18-2024 Episodic Other nutritional; endocrine; and metabolic disorders (1 source) Overweight; Translations: [Overweight] Onset: 9 Chronic Regional enteritis and ulcerative colitis (13 sources) Crohn's disease of terminal ileum; Translations: [Crohn's disease of small intestine without complications] Onset: 2 Resolved: 2 Chronic Past or Other Problems Problem Classification Problem Date Documented Da te Episodic/Chronic Intestinal infection (1 source) Viral intestinal infection, unspecified Onset: 08-29-2021 Resolved: 08-29-2021 Episodic Other lower respiratory disease (2 sources) Snoring; Translations: [Snoring] Onset: 07-01-2023 Episodic Other nutritional; endocrine; and metabolic disorders (1 source) Abnormal weight loss; Translations: [ABNORMAL WEIGHT LOSS] Onset: 08-23-2021 Episodic Results Test Name Value Interpretation Reference Range Facility BD DXA - AXIAL SKELETONon BD DXA - AXIAL SKELETON * * *Final Report* * * DATE OF EXAM: Jan 18 2024 9:08AM Ashley 0804 - DXA - AXIAL SKELETON / PROCEDURE REASON: Symptomatic menopausal or female climacteric states * * * * Physician Interpretation * * * * EXAMINATION: DXA BONE DENSITOMETRY BD DXA - AXIAL SKELETON PATIENT DEMOGRAPHICS: Age: 59 years, Gender: Female SCANNER INFORMATION: DXA Model: A21 Dot VN (S/N: [id number]) Date Scanned: 01/18/2024 9:08 AM CLINICAL HISTORY: DIAGNOSTIC Symptomatic menopausal or female climacteric states . RISK FACTORS FOR OSTEOPOROSIS AND ASSOCIATED FRACTURES REPORTED BY THIS PATIENT: Please refer to Bone Health Questionnaire in the EMR CURRENT THERAPY: Please refer to Bone Health Questionnaire in the EMR TECHNICAL LIMITATIONS: Degenerative disease of the spine RESULTS: Lumbar Spine (L1, L2, L3, L4): Total BMD: 1.188 g/cm2, T-score: -0.1 , Z-score: 1.0 Right Femoral Neck: 1.026 g/cm2 , T-score -0.1, Z-score 1.1 Right Total Hip: 1.021 g/cm2 , T-score 0.1 , Z-score 0.9 No comparison data - the patient has not had a previous bone density in the [facility] or the previous bone density was performed on a different DXA machine (new, updated model or different location) within the [facility]. VERTEBRAL FRACTURE ASSESSMENT Not performed. TRABECULAR BONE ASSESSMENT TBS not performed: BMI outside recommended range for calculation of TBS. IMPRESSION: THE LOWEST T-SCORE IS -0.1 IN THE SPINE AND RIGHT HIP 1) DIAGNOSIS (based on BMD alone): NORMAL BONE DENSITY - Caution: Medical conditions other than osteoporosis may cause low bone density, such as osteomalacia or renal osteodystrophy. Clinical correlation is necessary. 2) FRACTURE RISK (based on BMD alone) - NOT INCREASED - Caution: Fracture risk may be increased independent of BMD in patients with corticosteroid use, age greater than 65 years, or a history of prior fragility fracture. - FRAX was not calculated: normal bone density RECOMMENDATIONS: Follow-up in 2 years or as clinically indicated. Patients that are taking corticosteroids, are transplant recipients or have hyperparathyroidism should have annual follow-up. Follow-up scans should always be done on the same machine for accurate comparison. FOR MORE INFORMATION ABOUT DIAGNOSIS AND TREATMENT: [facility] Osteoporosis and Metabolic Bone Disease:? www.ccf.org/arthritis /osteo National Osteoporosis Foundation:? www.nof.org International Society of Clinical Densitometry www.iscd.org Gage Maker: [id number] Transcribe Date/Time: Jan 18 2024 9:10A Dictated by : ALEC ARCE MD This examination was interpreted and the report reviewed and electronically signed by: ALEC ARCE MD on Jan 18 2024 9:59PM EST [id number] N -0.1 Normal [facility] BLOOD TB SCREENon 01-18-2024 M. tuberculosis tuberculin stim IFN-g Ql (Bld) Negative Normal [facility] Comment on above: Order Comment: Speci men Type: BLOOD SPECIMEN Ordering Facility: [facility] Address: [address] [place] [address] Performed By: #### 5 1775-5, 66770-4, 14750-3, 11556-9, 10532-2, 71746-1, 62174-3, 97301-3 #### [facility] CLIA [id number] [address] [place] [address] [place] MITOGEN MINUS NIL >9.97 Normal >=0.50 [facility] Comment on above: Order Comment: Speci wilfredo Type: BLOOD SPECIMEN Ordering Facility: [facility] Address: [address] [place] [address] Performed By: #### 5 1775-5, 96239-2, 41323-1, 10882-0, 23967-2, 62074-1, 87245-2, 82763-8 #### [facility] CLIA [id number] [address] [place] [address] OF [facility] TB GAMMA INTERPRETATION Infection with M. tuberculosis complex is unlikely. If latent tuberculosis infection is highly suspected, a negative result does not rule out the infection. Specimens from immunocompromised patients and those <5 years of age may show false negative results. In case of a contact investigation, please repeat 8-12 weeks after a known exposure. Normal [facility] Comment on above: Order Comment: Speci men Type: BLOOD SPECIMEN Ordering Facility: [facility] Address: [address] [place] [address] Performed By: #### 5 1775-5, 69941-2, 00656-7, 93217-3, 96746-3, 66091-0, 97040-1, 83566-3 #### [facility] CLIA [id number] [address] [place] [address] [place] TB NIL 0.03 IU/mL Normal <=8.00 [facility] Comment on above: Order Comment: Speci men Type: BLOOD SPECIMEN Ordering Facility: [facility] Address: [address] [place] [address] Performed By: #### 5 1775-5, 80394-1, 20118-0, 96656-2, 92038-3, 52756-3, 80255-5, 13055-6 #### [facility] CLIA [id number] [address] [place] [address] [place] TB1 AG MINUS NIL 0.05 IU/mL Normal <0.35 [facility] Comment on above: Order Comment: Speci men Type: BLOOD SPECIMEN Ordering Facility: [facility] Address: [address] [place] [address] Performed By: #### 5 1775-5, 50320-1, 50081-0, 05604-3, 55329-0, 98314-4, 95287-0, 27161-3 #### [facility] CLIA [id number] [address] [place] [address] [place] TB2 AG MINUS NIL 0.02 IU/mL Normal <0.35 [facility] Comment on above: Order Comment: Speci men Type: BLOOD SPECIMEN Ordering Facility: [facility] Address: [address] [place] [address] Performed By: #### 5 1775-5, 60585-0, 70249-8, 85397-3, 09644-7, 75549-2, 14123-9, 63129-2 #### [facility] CLIA [id number] [address] [place] [address] [place] C-REACTIVE PROTEINon 11-25-2 024 CRP [Mass/Vol] 0.7 mg/dL NINF - 0.9 mg/dL [facility] C3 COMPLEMENTon 01-18-2024 Complement C3 [Mass/Vol] 158 mg/dL 86 - 166 mg/dL [facility] C3 SerPl-mCncon 01-18-2024 Complement C3 [Mass/Vol] 158 mg/dL Normal 86-166 [facility] Comment on above: Order Comment: Speci men Type: BLOOD SPECIMEN Ordering Facility: [facility] Address: [address] [place] [address] Performed By: #### 5 1775-5, 14712-2, 62893-6, 19475-5, 83279-1, 33765-6, 28994-0, 99819-0 #### [facility] CLIA [id number] [address] [place] [address] [place] C4 COMPLEMENTon 01-18-2024 Complement C4 [Mass/Vol] 28 mg/dL 13 - 46 mg/dL [facility] C4 SerPl-mCncon 01-18-2024 Complement C4 [Mass/Vol] 28 mg/dL Normal 13-46 [facility] Comment on above: Order Comment: Speci men Type: BLOOD SPECIMEN Ordering Facility: [facility] Address: [address] [place] [address] Performed By: #### 5 1775-5, 44246-4, 80485-2, 54701-7, 84257-1, 53930-0, 10648-3, 54310-7 #### [facility] CLIA [id number] [address] [place] [address] [place] CBC W Auto Differential pane l (Bld)on 01-18-2024 Basophils (Bld) [#/Vol] 0.08 10*3/uL [facility] Basophils/100 WBC (Bld) 1.0 % [facility] Differential cell count method Nom (Bld) Auto [facility] Eosinophils (Bld) [#/Vol] 0.32 10*3/uL [facility] Eosinophils/100 WBC (Bld) 4.0 % [facility] Erythrocyte distribution width (RBC) [Ratio] 14.2 % 11.5 - 15.0 % [facility] Hematocrit (Bld) [Volume fraction] 40.8 % 36.0 - 46.0 % [facility] Hemoglobin (Bld) [Mass/Vol] 12.8 g/dL 11.5 - 15.5 g/dL [facility] Immature granulocytes (Bld) [#/Vol] 0.06 10*3/uL [facility] Immature granulocytes/100 WBC (Bld) 0.8 % [facility] Interpretation and review of laboratory results Abnormal [facility] Lymphocytes (Bld) [#/Vol] 1.99 10*3/uL [facility] Lymphocytes/100 WBC (Bld) 25.1 % [facility] MCH (RBC) [Entitic mass] 24.7 pg Low 26.0 - 34.0 pg [facility] MCHC (RBC) [Mass/Vol] 31.4 g/dL 30.5 - 36.0 g/dL [facility] MCV (RBC) [Entitic vol] 78.6 fL Low 80.0 - 100.0 fL [facility] Monocytes (Bld) [#/Vol] 0.54 10*3/uL [facility] Monocytes/100 WBC (Bld) 6.8 % [facility] Neutrophils (Bld) [#/Vol] 4.93 10*3/uL [facility] Neutrophils/100 WBC (Bld) 62.3 % [facility] Nucleated RBC (Bld) [#/Vol] [facility] Nucleated RBC/100 WBC (Bld) [Ratio] 0.0 % /100 WBC [facility] Platelet mean volume (Bld) [Entitic vol] 10.2 fL 9.0 - 12.7 fL [facility] Platelets (Bld) [#/Vol] 292 10*3/uL [facility] RBC (Bld) [#/Vol] 5.19 10*6/uL 3.90 - 5.2 0 m/uL [facility] WBC (Bld) [#/Vol] 7.92 10*3/uL [facility] Basophils (Bld) [#/Vol] 0.08 10*3/uL Normal <0.11 [facility] Comment on above: Order Comment: Speci men Type: BLOOD SPECIMEN Ordering Facility: [facility] Address: [address] [place], [place] [address] [place] [address] Performed By: #### 5 1775-5, 80249-5, 03741-1, 20339-5, 92088-5, 82549-0, 61685-4, 42315-3 #### [facility] CLIA [id number] [address] [place] [address] [place] Basophils/100 WBC (Bld) 1.0 % Normal [facility] Comment on above: Order Comment: Speci men Type: BLOOD SPECIMEN Ordering Facility: [facility] Address: [address] [place] [address] Performed By: #### 5 1775-5, 45447-5, 05961-4, 22206-2, 58973-8, 63951-8, 42415-5, 60542-9 #### [facility] CLIA [id number] [address] [place] [address] [place] Differential cell count method Nom (Bld) Auto Normal [facility] Comment on above: Order Comment: Speci men Type: BLOOD SPECIMEN Ordering Facility: [facility] Address: [address] [place] [address] Performed By: #### 5 5-5, 40407-5, 00079-6, 93816-2, 38424-8, 52688-0, 86791-4, 63216-7 #### [facility] CLIA [id number] [address] [place] [address] [place] Eosinophils (Bld) [#/Vol] 0.32 10*3/uL Normal <0.46 [facility] Comment on above: Order Comment: Speci men Type: BLOOD SPECIMEN Ordering Facility: [facility] Address: [address] [place] [address] Performed By: #### 5 1775-5, 63903-9, 72494-8, 14158-6, 72623-5, 04219-0, 96601-4, 13043-2 #### [facility] CLIA [id number] [address] [place] [address] [place] Eosinophils/100 WBC (Bld) 4.0 % Normal [facility] Comment on above: Order Comment: Speci men Type: BLOOD SPECIMEN Ordering Facility: [facility] Address: [address] [place] [address] Performed By: #### 5 1775-5, 04684-9, 62435-5, 39199-3, 77977-2, 83639-5, 48708-6, 35321-3 #### [facility] CLIA [id number] [address] [place] [address] [place] Erythrocyte distribution width (RBC) [Ratio] 14.2 % Normal 11.5-15.0 [facility] Comment on above: Order Comment: Speci men Type: BLOOD SPECIMEN Ordering Facility: [facility] Address: [address] [place] [address] Performed By: #### 5 5-5, 53533-4, 46026-0, 96666-9, 98909-4, 75329-4, 37028-6, 21530-9 #### [facility] CLIA [id number] [address] [place] [address] [place] Hematocrit (Bld) [Volume fraction] 40.8 % Normal 36.0-46.0 [facility] Comment on above: Order Comment: Speci men Type: BLOOD SPECIMEN Ordering Facility: [facility] Address: [address] [place] [address] Performed By: #### 5 1775-5, 27610-5, 57374-3, 61512-7, 51207-2, 70451-7, 97784-0, 00362-8 #### [facility] CLIA [id number] [address] [place] [address] [place] Hemoglobin (Bld) [Mass/Vol] 12.8 g/dL Normal 11.5-15.5 [facility] Comment on above: Order Comment: Speci men Type: BLOOD SPECIMEN Ordering Facility: [facility] Address: [address] [place] [address] Performed By: #### 5 1775-5, 50269-6, 35984-1, 15164-0, 46605-4, 00743-0, 95860-0, 98932-8 #### [facility] CLIA [id number] [address] [place] [address] [place] Immature granulocytes (Bld) [#/Vol] 0.06 10*3/uL Normal <0.10 [facility] Comment on above: Order Comment: Speci men Type: BLOOD SPECIMEN Ordering Facility: [facility] Address: [address] [place] [address] Performed By: #### 5 5-5, 06658-3, 73892-6, 16795-1, 41081-2, 56544-8, 93005-4, 11501-0 #### [facility] CLIA [id number] [address] [place] [address] [place] Immature granulocytes/100 WBC (Bld) 0.8 % Normal [facility] Comment on above: Order Comment: Speci men Type: BLOOD SPECIMEN Ordering Facility: [facility] Address: [address] [place] [address] Performed By: #### 5 1775-5, 14667-7, 93359-0, 71117-6, 08413-5, 09077-5, 38610-7, 89290-2 #### [facility] CLIA [id number] [address] [place] [address] [place] Lymphocytes (Bld) [#/Vol] 1.99 10*3/uL Normal 1.00-4.00 [facility] Comment on above: Order Comment: Speci men Type: BLOOD SPECIMEN Ordering Facility: [facility] Address: [address] [place] [address] Performed By: #### 5 1775-5, 28429-9, 64438-5, 78036-7, 29054-9, 75512-3, 77460-2, 78710-2 #### [facility] CLIA [id number] [address] [place] [address] [place] Lymphocytes/100 WBC (Bld) 25.1 % Normal [facility] Comment on above: Order Comment: Speci men Type: BLOOD SPECIMEN Ordering Facility: [facility] Address: [address] [place] [address] Performed By: #### 5 1775-5, 33070-4, 65082-2, 04200-0, 28721-7, 99866-8, 42234-8, 12419-3 #### [facility] CLIA [id number] [address] [place] [address] [place] MCH (RBC) [Entitic mass] 24.7 pg Low 26.0-34.0 [facility] Comment on above: Order Comment: Speci men Type: BLOOD SPECIMEN Ordering Facility: [facility] Address: [address] [place] [address] Performed By: #### 5 1775-5, 36786-3, 49792-4, 99196-3, 84182-8, 94987-1, 38126-8, 01282-6 #### [facility] CLIA [id number] [address] [place] [address] [place] MCHC (RBC) [Mass/Vol] 31.4 g/dL Normal 30.5-36.[address] [facility] Comment on above: Order Comment: Speci men Type: BLOOD SPECIMEN Ordering Facility: [facility] Address: [address] [place] [address] Performed By: #### 5 1775-5, 90441-1, 91720-8, 80755-3, 74662-8, 62003-7, 53260-9, 27172-8 #### [facility] CLIA [id number] [address] [place] [address] [place] MCV (RBC) [Entitic vol] 78.6 fL Low 80.0-100.0 [facility] Comment on above: Order Comment: Speci men Type: BLOOD SPECIMEN Ordering Facility: [facility] Address: [address] [place] [address] Performed By: #### 5 1775-5, 69862-0, 61319-6, 84903-2, 71067-9, 87270-2, 28333-9, 99489-8 #### [facility] CLIA [id number] [address] [place] [address] [place] Monocytes (Bld) [#/Vol] 0.54 10*3/uL Normal <0.87 [facility] Comment on above: Order Comment: Speci men Type: BLOOD SPECIMEN Ordering Facility: [facility] Address: [address] [place] [address] Performed By: #### 5 1774-5, 15287-0, 35241-7, 97936-9, 62743-3, 92659-8, 17702-6, 70232-6 #### [facility] CLIA [id number] [address] [place] [address] [place] Monocytes/100 WBC (Bld) 6.8 % Normal [facility] Comment on above: Order Comment: Speci men Type: BLOOD SPECIMEN Ordering Facility: [facility] Address: [address] [place] [address] Performed By: #### 5 1774-5, 37570-0, 08853-5, 58583-6, 72026-6, 98153-8, 66095-7, 76775-9 #### [facility] CLIA [id number] [address] [place] [address] [place] Neutrophils (Bld) [#/Vol] 4.93 10*3/uL Normal 1.45-7.50 [facility] Comment on above: Order Comment: Speci men Type: BLOOD SPECIMEN Ordering Facility: [facility] Address: [address] [place] [address] Performed By: #### 5 1775-5, 90599-9, 18187-6, 59530-7, 77444-7, 68662-8, 07650-5, 96914-9 #### [facility] CLIA [id number] [address] [place] [address] [place] Neutrophils/100 WBC (Bld) 62.3 % Normal [facility] Comment on above: Order Comment: Speci men Type: BLOOD SPECIMEN Ordering Facility: [facility] Address: [address] [place] [address] Performed By: #### 5 1775-5, 59630-7, 56617-8, 99281-4, 61527-2, 15063-2, 74131-4, 63737-8 #### [facility] CLIA [id number] [address] [place] [address] [place] Nucleated RBC (Bld) [#/Vol] 10*3/uL Normal <0.01 [facility] Comment on above: Order Comment: Speci men Type: BLOOD SPECIMEN Ordering Facility: [facility] Address: [address] [place] [address] Performed By: #### 5 1774-5, 07779-9, 96027-2, 14911-1, 56347-4, 54855-6, 52083-0, 45308-7 #### [facility] CLIA [id number] [address] [place] [address] [place] Nucleated RBC/100 WBC (Bld) [Ratio] 0.0 /100 WBC Normal [facility] Comment on above: Order Comment: Speci men Type: BLOOD SPECIMEN Ordering Facility: [facility] Address: [address] [place] [address] Performed By: #### 5 1775-5, 05357-3, 79333-6, 46234-0, 75801-0, 34531-2, 56523-2, 90188-0 #### [facility] CLIA [id number] [address] [place] [address] [place] Platelet mean volume (Bld) [Entitic vol] 10.2 fL Normal 9.0-12.7 [facility] Comment on above: Order Comment: Speci men Type: BLOOD SPECIMEN Ordering Facility: [facility] Address: [address] [place] [address] Performed By: #### 5 1775-5, 22956-2, 71293-2, 07250-7, 65621-5, 18330-4, 24326-0, 34437-6 #### [facility] CLIA [id number] [address] [place] [address] [place] Platelets (Bld) [#/Vol] 292 10*3/uL Normal 150-400 [facility] Comment on above: Order Comment: Speci men Type: BLOOD SPECIMEN Ordering Facility: [facility] Address: [address] [place] [address] Performed By: #### 5 1775-5, 46806-8, 28354-2, 38269-8, 62974-2, 07194-5, 92485-1, 81164-0 #### [facility] CLIA [id number] [address] [place] [address] [place] RBC (Bld) [#/Vol] 5.19 10*6/uL Normal 3.90-5.20 [facility] Comment on above: Order Comment: Speci men Type: BLOOD SPECIMEN Ordering Facility: [facility] Address: [address] [place] [address] Performed By: #### 5 1775-5, 37034-5, 18606-0, 31251-9, 60199-7, 59653-0, 23405-5, 55100-0 #### [facility] CLIA [id number] [address] [place] [address] [place] WBC (Bld) [#/Vol] 7.92 10*3/uL Normal 3.70-11.00 [facility] Comment on above: Order Comment: Speci men Type: BLOOD SPECIMEN Ordering Facility: [facility] Address: [address] [place] [address] Performed By: #### 5 1775-5, 78844-2, 76193-4, 27762-7, 68249-0, 70553-6, 23746-4, 09474-0 #### [facility] CLIA [id number] [address] [place] [address] [id number] [id number] [facility] CNOVon 01-18-2024 CNOV Office Visit (RHEUMN ) GEORGINAESSIE ([id number]) 1965 F Date Time Provider Department 01/18/24 10:00 AM RENNY BARON During your visit today, we recorded the following information about you: Temperature Pulse Blood pressure Weight 97.2 degrees 68/minute 153/100 109.2 kg Height 1.689 m Renny Baron MD 01/18/2024 6:39 PM Signed Rheumatology CONSULTATION Date of Service: 01/18/2024 Patient: Essie Velásquez Georgina Primary Care Physician: Kayy Paniagua ([place], [place]) Last Rheumatology visit: None at [facility] Referring Provider: Kristy Evangelista [address] [place], [place] [id number] Essie Steele is here today at request of Dr. Evangelista specifically for consultation of my opinion in regards to the chief complaint listed below. Correspondence will be shared today via the [employer] electronic health record or through regular mail, where applicable. History of Present Illness Essie Steele is a 59 year old White female with history of PAF (02/2023), CD (no immunosuppression) who presents on 01/18/2024 for an in-person visit for evaluation of Joint Pain. She is currently taking celecoxib. Reason for visit: arthritis She had a hysterectomy 3 years ago and afterwards had difficulty sleeping, hot flashes, weight gain (70lbs), excess fatigue. Around the same time, she has also noticed more joint pain. Specifically in her hands she has felt swelling in her MCPs. Feels that her rings are having a harder time fitting but also has had weight gain. Bl hand, left>right shoulder (left handed) hurt the most but elbow, lower back all hurt. Sometimes it feels that the pain radiates down her bone from shoulder down her arm. She had EMS for ~1h that improves with movement but worst pain is at night when she is laying down. Reported she had +KAELA Exacerbated by specific positions and worse with use (end of the day). Alleviated by tylenol (1000mg BID) or motrin (800mg daily prn). Motrin helps more than tylenol. She wakes up several times after she falls asleep and never wakes up feeling rested. Amenorrhea x1 year. She was evaluated by women's medicine and started on HRT for symptomatic menopause. The estrogen patch helped with the hot flashes. Positive in bold otherwise negative fever, hair shedding wo alopecia, malar rash, oral/nasal ulcers, serositis (only with afib), photosensitivity, joint swelling/EMS, hematuria, foaming urine, psychosis, delirium, seizure, Raynaud's, renal issues, known low WBC, Hgb (think CD related), Plt, neutrophils, lymphocytes, miscarriages (1st trimester: 2), pre-eclampsia, blood clots. Dry eyes, some dry mouth (cavities), skin, vaginal dryness (started with menopause symptoms). Positive in bold. Uveitis, PsO, family hx of PsO (grandson PsO), diarrhea/hematochezia , IBD (CD), recurrent enthesitis (golf/tennis elbow, plantar fascitis, improved with insert), inflammatory back pain (lower back pain started after 51, worsened 3 years ago worse at the end of the day, better with rest and worse with movement), dactylitis, DIP swelling CD - Dx age 20 - flared, isaac with but has been stable off medications for the last 5 years except for occassional dicyclomine - About 1/month cramping. Currently feels ok from CD standpoint. - Previously on pentasa, steroids Tx - motrin, tylenol Pain Evaluation 11/23/2023 01/17/2024 Pain Evaluation Pain Score 3 Location Generalized Wrist-Right Location Comment joint pain Description Aching;Cramping;Numbn ess;Radiating;Sharp;S hooting;Stiffness;Tig htness Duration (Timeframe) Months Frequency Continuous Intervention Medication;Reposition ;Imagery;Pillow support Patient-Entered Data PROMIS Assessments 01/17/2024 PROMIS Global Health - (T-Scores - the mean of general population = 50. Five points is a clinically meaningful difference.) Physical T-Score 29.6 Mental T-Score 33.8 01/17/2024 PROMIS CAT Pain Interference PROMIS Pain Interference T-Score (range: 10 - 90) 67 (moderate) PROMIS Pain Interference Percentile 4 PROMIS Adult Short Form-Global Health Score (Mental) 33.8 (Fair) 01/17/2024 PROMIS CAT Fatigue PROMIS Fatigue T-Score 68 (moderate) PROMIS Fatigue Percentile 4 01/17/2024 PROMIS PHYSICAL FUNCTION T-SCORE PROMIS Physical Function T-Score 35 (moderate dysfunction) Physical Function Percentile 7 RAPID 3 [place] Activities of Daily Living 01/17/2024 5:49 PM Dress self? With SOME difficulty Get in and out of bed? Without ANY difficulty Walk outdoors? With SOME difficulty Wash and dry body? With SOME difficulty Get in and out of car? With SOME difficulty RAPID 3 Disease Activity Weighed Score Levels: 0 - 1: Near Remission 1.3 - 2.0: Low Severity 2.3 - 4.0: Moderate Severity 4.3 - 10.0: High Severity 01/17/2024 RAPID-3 Weighed Score RAPID 3 Weighed Score 4.72 (High severity ) Review (more content not included)... Normal [facility] CRP SerPl-mCncon 01-18-2024 CRP [Mass/Vol] 0.7 mg/dL Normal <0.9 [facility] Comment on above: Order Comment: Speci men Type: BLOOD SPECIMEN Ordering Facility: [facility] Address: [address] [place] [address] Performed By: #### 5 1775-5, 21557-2, 52179-3, 99177-4, 47809-3, 85249-0, 84072-3, 38192-5 #### [facility] CLIA [id number] [address] [place] [address] [place] Centromere Ab IF Ql (S)on Centromere Ab Qn (S) <0.2 Normal <1.0 [facility] Comment on above: Order Comment: Speci men Type: BLOOD SPECIMEN Ordering Facility: [facility] Address: [address] [place] [address] Result Comment: Anti -centromere antibody is used as in aid in diagnosis of systemic sclerosis. Clinical correlation is required. Test Methodology: Multiplex flow immunoassay. Performed By: #### 5 1775-5, 29309-0, 73043-9, 87837-4, 59189-7, 94185-9, 47386-2, 01456-5 #### [facility] CLIA [id number] [address] [place] [address] [place] CENTROMERE AB QUAL Negative Normal Negative [facility] Comment on above: Order Comment: Speci men Type: BLOOD SPECIMEN Ordering Facility: [facility] Address: [address] [place] [address] Performed By: #### 5 1775-5, 79575-7, 86097-4, 94542-9, 38947-2, 68307-3, 04258-2, 00308-1 #### [facility] CLIA [id number] [address] [place] [address] [place] Chromatin Ab Qnon 01-18-2024 CHROMATIN AB QUAL Negative Normal Negative [facility] Comment on above: Order Comment: Speci men Type: BLOOD SPECIMEN Ordering Facility: [facility] Address: [address] [place] [address] Performed By: #### 5 1775-5, 63863-5, 58640-2, 83666-6, 67354-8, 16058-0, 11190-0, 68037-9 #### [facility] CLIA [id number] [address] [place] [address] [place] Chromatin Ab SerPl-aCncon Chromatin Ab Qn <0.2 Normal <1.0 [facility] Comment on above: Order Comment: Speci men Type: BLOOD SPECIMEN Ordering Facility: [facility] Address: [address] [place] [address] Result Comment: Test Methodology: Multiplex flow immunoassay. Performed By: #### 5 1775-5, 28802-0, 63248-1, 20048-8, 43256-7, 28417-0, 06908-7, 09257-7 #### [facility] CLIA [id number] [address] [facility]NOTE 3] [place] [address] [place] Comprehensive metabolic 2000 panelon 01-18-2024 Albumin [Mass/Vol] 4.4 g/dL 3.9 - 4.9 g/dL [facility] ALP [Catalytic activity/Vol] 148 U/L High 34 - 123 U/L [facility] ALT [Catalytic activity/Vol] 20 U/L 7 - 38 U/L [facility] Anion gap [Moles/Vol] 12 mmol/L 8 - 15 mmol/L [facility] AST [Catalytic activity/Vol] 25 U/L 13 - 35 U/L [facility] Bilirubin [Mass/Vol] 0.4 mg/dL 0.2 - 1 .3 mg/dL [facility] Calcium [Mass/Vol] 9.2 mg/dL 8.5 - 10. 2 mg/dL [facility] Chloride [Moles/Vol] 102 mmol/L 98 - 10 7 mmol/L [facility] CO2 [Moles/Vol] 26 mmol/L 22 - 30 mmol/L [facility] Creatinine [Mass/Vol] 0.59 mg/dL 0.58 - 0.96 mg/dL [facility] GFR/1.73 sq M.predicted among non-blacks MDRD (S/P/Bld) [Vol rate/Area] 105 mL/min/{1.73_m2} - PINF [facility] Comment on above: Estimated Glomerular Filtration Rate (eGFR) is calculated using the 2020 CKD-EPI creatinine equation. This equation utilizes serum creatinine, sex, and age as parameters. The creatinine assay has traceable calibration to isotope dilution-mass spectrometry. Refer to KDIGO guidelines for clinical interpretation. In patients with unstable renal function, e.g. those with acute kidney injury, the eGFR may not accurately reflect actual GFR. Glucose [Mass/Vol] 91 mg/dL 74 - 99 mg/dL [facility] Comment on above: The [place] Diabete s Association (ADA) provides guidance for cutoff values for fasting glucose and random glucose. The ADA defines fasting as no caloric intake for at least 8 hours. Fasting plasma glucose results between 100 to 125 mg/dL indicate increased risk for diabetes (prediabetes). Fasting plasma glucose results greater than or equal to 126 mg/dL meet the criteria for diagnosis of diabetes. In the absence of unequivocal hyperglycemia, results should be confirmed by repeat testing. In a patient with classic symptoms of hyperglycemia or hyperglycemic crisis, random plasma glucose results greater than or equal to 200 mg/dL meet the criteria for diagnosis of diabetes. Reference: Standards of Medical Care in Diabetes 2016, [place] [employer]. Diabetes Care. 2016.39(Suppl 1). Interpretation and review of laboratory results Abnormal [facility] Potassium [Moles/Vol] 3.7 mmol/L 3.7 - 5.1 mmol/L [facility] Protein [Mass/Vol] 7.3 g/dL 6.3 - 8.0 g/dL [facility] Sodium [Moles/Vol] 140 mmol/L 136 - 144 mmol/L [facility] Urea nitrogen [Mass/Vol] 12 mg/dL 7 - 21 mg/dL [facility] Albumin [Mass/Vol] 4.4 g/dL Normal 3.9-4.9 [facility] Comment on above: Order Comment: Fernando villalobos Type: BLOOD SPECIMEN Ordering Facility: [facility] Address: [address] [place] [address] Performed By: #### 5 1775-5, 84085-2, 01054-5, 45457-7, 70001-4, 72239-4, 89493-8, 41656-8 #### [facility] CLIA [id number] [address] [place] [address] [place] ALP [Catalytic activity/Vol] 148 U/L High 34-123 [facility] Comment on above: Order Comment: Fernando villalobos Type: BLOOD SPECIMEN Ordering Facility: [facility] Address: [address] [place] [address] Performed By: #### 5 1775-5, 78551-5, 47870-9, 00094-4, 78760-5, 28334-7, 71867-6, 29946-1 #### [facility] CLIA [id number] [facility] [place] [address] [place] ALT [Catalytic activity/Vol] 20 U/L Normal 7-38 [facility] Comment on above: Order Comment: Speci men Type: BLOOD SPECIMEN Ordering Facility: [facility] Address: [address] [place] [address] Performed By: #### 5 1775-5, 46909-3, 92383-0, 86621-1, 56829-0, 47665-7, 02318-4, 70024-2 #### [facility] CLIA [id number] [address] [place] [address] [place] Anion gap [Moles/Vol] 12 mmol/L Normal 8-[address] [facility] Comment on above: Order Comment: Speci men Type: BLOOD SPECIMEN Ordering Facility: [facility] Address: [address] [place] [address] Performed By: #### 5 5-5, 78915-0, 35294-7, 52820-3, 26230-5, 60575-1, 04822-5, 27731-6 #### [facility] CLIA [id number] [address] [place] [address] [place] AST [Catalytic activity/Vol] 25 U/L Normal 13-35 [facility] Comment on above: Order Comment: Speci men Type: BLOOD SPECIMEN Ordering Facility: [facility] Address: [address] [place] [address] Performed By: #### 5 1775-5, 20415-7, 24100-4, 21128-1, 25680-0, 77661-8, 14087-5, 67667-4 #### [facility] CLIA [id number] [address] [place] [address] [place] Bilirubin [Mass/Vol] 0.4 mg/dL Normal 0.2-1.3 [facility] Comment on above: Order Comment: Speci men Type: BLOOD SPECIMEN Ordering Facility: [facility] Address: [address] [place] [address] Performed By: #### 5 1775-5, 47155-0, 69232-1, 43084-3, 43916-2, 59036-9, 48444-1, 93823-2 #### [facility] CLIA [id number] [address] [place] [address] [place] Calcium [Mass/Vol] 9.2 mg/dL Normal 8.5-10.2 [facility] Comment on above: Order Comment: Speci men Type: BLOOD SPECIMEN Ordering Facility: [facility] Address: [address] [place] [address] Performed By: #### 5 1775-5, 24398-3, 34223-5, 56212-1, 62534-3, 44143-8, 74367-5, 58685-9 #### [facility] CLIA [id number] [address] [place] [address] [place] Chloride [Moles/Vol] 102 mmol/L Normal 98-107 [facility] Comment on above: Order Comment: Speci men Type: BLOOD SPECIMEN Ordering Facility: [facility] Address: [address] [place] [address] Performed By: #### 5 1775-5, 90796-7, 51119-8, 17035-7, 49553-8, 27679-6, 88251-9, 73412-4 #### [facility] CLIA [id number] [address] [place] [address] [place] CO2 [Moles/Vol] 26 mmol/L Normal 22-30 [facility] Comment on above: Order Comment: Speci men Type: BLOOD SPECIMEN Ordering Facility: [facility] Address: [address] [place] [address] Performed By: #### 5 1775-5, 28482-5, 84091-8, 81262-0, 06630-5, 23852-1, 20065-1, 82163-2 #### [facility] CLIA [id number] [address] [place] [address] [place] Creatinine [Mass/Vol] 0.59 mg/dL Normal 0.58-0.[address] [facility] Comment on above: Order Comment: Speci men Type: BLOOD SPECIMEN Ordering Facility: [facility] Address: [address] [place] [address] Performed By: #### 5 1775-5, 32727-5, 87421-1, 96403-0, 62245-6, 99429-5, 43001-5, 44776-3 #### [facility] CLIA [id number] [address] [place] [address] [place] Creatinine and Glomerular filtration rate.predicted panel (S/P/Bld) 105 mL/min/1.73m??? Normal >=60 [facility] Comment on above: Order Comment: Fernando men Type: BLOOD SPECIMEN Ordering Facility: [facility] Address: [address] [place] [address] Result Comment: Oanh mated Glomerular Filtration Rate (eGFR) is calculated using the 2020 CKD-EPI creatinine equation. This equation utilizes serum creatinine, sex, and age as parameters. The creatinine assay has traceable calibration to isotope dilution-mass spectrometry. Refer to KDIGO guidelines for clinical interpretation. In patients with unstable renal function, e.g. those with acute kidney injury, the eGFR may not accurately reflect actual GFR. Performed By: #### 5 1775-5, 57097-2, 40409-7, 20276-4, 88247-4, 94231-9, 24673-2, 61811-1 #### [facility] CLIA [id number] [address] [place] [address] [place] Glucose [Mass/Vol] 91 mg/dL Normal 74-99 [facility] Comment on above: Order Comment: Fernando villalobos Type: BLOOD SPECIMEN Ordering Facility: [facility] Address: [address] [place] [address] Result Comment: The [place] Diabetes Association (ADA) provides guidance for cutoff values for fasting glucose and random glucose. The ADA defines fasting as no caloric intake for at least 8 hours. Fasting plasma glucose results between 100 to 125 mg/dL indicate increased risk for diabetes (prediabetes). Fasting plasma glucose results greater than or equal to 126 mg/dL meet the criteria for diagnosis of diabetes. In the absence of unequivocal hyperglycemia, results should be confirmed by repeat testing. In a patient with classic symptoms of hyperglycemia or hyperglycemic crisis, random plasma glucose results greater than or equal to 200 mg/dL meet the criteria for diagnosis of diabetes. Reference: Standards of Medical Care in Diabetes 2016, [place] [employer]. Diabetes Care. 2016.39(Suppl 1). Performed By: #### 5 1775-5, 27321-2, 19412-5, 47182-1, 41213-7, 01862-3, 42875-5, 02403-1 #### [facility] CLIA [id number] [address] [place] [address] [place] Potassium [Moles/Vol] 3.7 mmol/L Normal 3.7-5.[address] [facility] Comment on above: Order Comment: Fernando villalobos Type: BLOOD SPECIMEN Ordering Facility: [facility] Address: [address] [place] [address] Performed By: #### 5 1775-5, 44111-6, 89153-5, 28041-4, 91894-5, 81326-4, 07655-6, 58596-1 #### [facility] CLIA [id number] [address] [place] [address] [place] Protein [Mass/Vol] 7.3 g/dL Normal 6.3-8.0 [facility] Comment on above: Order Comment: Fernando villalobos Type: BLOOD SPECIMEN Ordering Facility: [facility] Address: [address] [place] [address] Performed By: #### 5 1775-5, 61320-0, 18878-9, 39262-8, 52251-5, 12345-1, 07609-4, 05181-3 #### [facility] CLIA [id number] [address] [place] [address] [place] Sodium [Moles/Vol] 140 mmol/L Normal 136-144 [facility] Comment on above: Order Comment: Speci men Type: BLOOD SPECIMEN Ordering Facility: [facility] Address: [address] [place] [address] Performed By: #### 5 1775-5, 39513-0, 76015-2, 89763-9, 69388-9, 07922-3, 57266-4, 82059-3 #### [facility] CLIA [id number] [address] [place] [address] [place] Urea nitrogen [Mass/Vol] 12 mg/dL Normal 7-21 [facility] Comment on above: Order Comment: Speci men Type: BLOOD SPECIMEN Ordering Facility: [facility] Address: [address] [place] [address] Performed By: #### 5 1775-5, 57552-8, 22873-2, 11444-0, 21223-2, 85268-2, 09262-5, 78746-1 #### [facility] CLIA [id number] [address] [place] [address] [place] Cyclic citrullinated peptide IgG Qnon 01-18-2024 [facility] ANTIBODY IGG QUALITATIVE Negative Normal Negative [facility] Comment on above: Order Comment: Speci men Type: BLOOD SPECIMEN Ordering Facility: [facility] Address: [address] [place] [address] Performed By: #### 5 1775-5, 14654-3, 72545-8, 76092-1, 09951-0, 34743-7, 40570-0, 24340-8 #### [facility] CLIA [id number] [address] [place] [address] [place] DNA double strand Ab IA Qn ( S)on 01-18-2024 DNA ANTIBODY 29 IU/mL Normal <=200 [facility] Comment on above: Order Comment: Fernando villalobos Type: BLOOD SPECIMEN Ordering Facility: [facility] Address: [address] [place] [address] Result Comment: Nega tive: <200 IU/mL Equivocal: 201-300 IU/mL Moderate Positive: 301-800 IU/mL Strong Positive: >801 IU/mL Performed By: #### 5 1775-5, 07283-8, 91006-7, 08460-4, 28018-5, 99146-8, 82979-0, 12557-0 #### [facility] CLIA [id number] [address] [place] [address] [place] DNA ANTIBODY QUALITATIVE INTERPRETATION Negative Normal Negative [facility] Comment on above: Order Comment: Speci men Type: BLOOD SPECIMEN Ordering Facility: [facility] Address: [address] [place] [address] Performed By: #### 5 1775-5, 48249-7, 16777-4, 45755-8, 07519-7, 44372-8, 32637-3, 37440-9 #### [facility] CLIA [id number] [address] [place] [address] [place] DXA Skeletal system.axial Vi ews for bone densityOrdered By: [facility]cf Provider on 01-18-2024 LOWEST T-SCORE -0.1 [facility] DXA Skeletal system.axial Vi ews for bone densityon 01-18-2024 IMPRESSION: THE LOWEST T-SCORE IS -0.1 IN THE SPINE AND RIGHT HIP 1) DIAGNOSIS (based on BMD alone): NORMAL BONE DENSITY - Caution: Medical conditions other than osteoporosis may cause low bone density, such as osteomalacia or renal osteodystrophy. Clinical correlation is necessary. 2) FRACTURE RISK (based on BMD alone) - NOT INCREASED - Caution: Fracture risk may be increased independent of BMD in patients with corticosteroid use, age greater than 65 years, or a history of prior fragility fracture. - FRAX was not calculated: normal bone density RECOMMENDATIONS: Follow-up in 2 years or as clinically indicated. Patients that are taking corticosteroids, are transplant recipients or have hyperparathyroidism should have annual follow-up. Follow-up scans should always be done on the same machine for accurate comparison. FOR MORE INFORMATION ABOUT DIAGNOSIS AND TREATMENT: [facility] Osteoporosis and Metabolic Bone Disease:? www.ccf.org/arthritis /osteo National Osteoporosis Foundation:? www.nof.org International Society of Clinical Densitometry www.iscd.org Gage Maker: [id number] Transcribe Date/Time: Jan 18 2024 9:10A Dictated by : ALEC ARCE MD This examination was interpreted and the report reviewed and electronically signed by: ALEC ARCE MD on Jan 18 2024 9:59PM [facility] DIVISION OF RADIOLOGY * * *Final Report* * * DATE OF EXAM: Jan 18 2024 9:08AM [facility] [place] 0804 - BD DXA - AXIAL SKELETON / PROCEDURE REASON: Symptomatic menopausal or female climacteric states * * * * Physician Interpretation * * * * EXAMINATION: DXA BONE DENSITOMETRY BD DXA - AXIAL SKELETON PATIENT DEMOGRAPHICS: Age: 59 years, Gender: Female SCANNER INFORMATION: DXA Model: EncrypTix (S/N: [id number]) Date Scanned: 01/18/2024 9:08 AM CLINICAL HISTORY: DIAGNOSTIC Symptomatic menopausal or female climacteric states . RISK FACTORS FOR OSTEOPOROSIS AND ASSOCIATED FRACTURES REPORTED BY THIS PATIENT: Please refer to Bone Health Questionnaire in the EMR CURRENT THERAPY: Please refer to Bone Health Questionnaire in the EMR TECHNICAL LIMITATIONS: Degenerative disease of the spine RESULTS: Lumbar Spine (L1, L2, L3, L4): Total BMD: 1.188 g/cm2, T-score: -0.1 , Z-score: 1.0 Right Femoral Neck: 1.026 g/cm2 , T-score -0.1, Z-score 1.1 Right Total Hip: 1.021 g/cm2 , T-score 0.1 , Z-score 0.9 No comparison data - the patient has not had a previous bone density in the [facility] or the previous bone density was performed on a different DXA machine (new, updated model or different location) within the [facility]. VERTEBRAL FRACTURE ASSESSMENT Not performed. TRABECULAR BONE ASSESSMENT TBS not performed: BMI outside recommended range for calculation of TBS. DIVISION OF RADIOLOGY Provider, Paty Fabricio [facility] - 01/18/2024 * * *Final Report* * * DATE OF EXAM: Jan 18 2024 9:08AM [facility] 0804 - BD DXA - AXIAL SKELETON / PROCEDURE REASON: Symptomatic menopausal or female climacteric states * * * * Physician Interpretation * * * * EXAMINATION: DXA BONE DENSITOMETRY BD DXA - AXIAL SKELETON PATIENT DEMOGRAPHICS: Age: 59 years, Gender: Female SCANNER INFORMATION: DXA Model: EncrypTix (S/N: [id number]) Date Scanned: 01/18/2024 9:08 AM CLINICAL HISTORY: DIAGNOSTIC Symptomatic menopausal or female climacteric states . RISK FACTORS FOR OSTEOPOROSIS AND ASSOCIATED FRACTURES REPORTED BY THIS PATIENT: Please refer to Bone Health Questionnaire in the EMR CURRENT THERAPY: Please refer to Bone Health Questionnaire in the EMR TECHNICAL LIMITATIONS: Degenerative disease of the spine RESULTS: Lumbar Spine (L1, L2, L3, L4): Total BMD: 1.188 g/cm2, T-score: -0.1 , Z-score: 1.0 Right Femoral Neck: 1.026 g/cm2 , T-score -0.1, Z-score 1.1 Right Total Hip: 1.021 g/cm2 , T-score 0.1 , Z-score 0.9 No comparison data - the patient has not had a previous bone density in the [facility] or the previous bone density was performed on a different DXA machine (new, updated model or different location) within the [facility]. VERTEBRAL FRACTURE ASSESSMENT Not performed. TRABECULAR BONE ASSESSMENT TBS not performed: BMI outside recommended range for calculation of TBS. IMPRESSION IMPRESSION: THE LOWEST T-SCORE IS -0.1 IN THE SPINE AND RIGHT HIP 1) DIAGNOSIS (based on BMD alone): NORMAL BONE DENSITY - Caution: Medical conditions other than osteoporosis may cause low bone density, such as osteomalacia or renal osteodystrophy. Clinical correlation is necessary. 2) FRACTURE RISK (based on BMD alone) - NOT INCREASED - Caution: Fracture risk may be increased independent of BMD in patients with corticosteroid use, age greater than 65 years, or a history of prior fragility fracture. - FRAX was not calculated: normal bone density RECOMMENDATIONS: Follow-up in 2 years or as clinically indicated. Patients that are taking corticosteroids, are transplant recipients or have hyperparathyroidism should have annual follow-up. Follow-up scans should always be done on the same machine for accurate comparison. FOR MORE INFORMATION ABOUT DIAGNOSIS AND TREATMENT: [facility] Osteoporosis and Metabolic Bone Disease:? www.ccf.org/arthritis /osteo National Osteoporosis Foundation:? www.nof.org International Society of Clinical Densitometry www.iscd.org Gage Maker: [id number] Transcribe Date/Time: Jan 18 2024 9:10A Dictated by : ALEC ARCE MD This examination was interpreted and the report reviewed and electronically signed by: ALEC ARCE MD on Jan 18 2024 9:59PM [facility] Radiology Study observation (narrative) [facility] GAYATRI Jo1 Ab Ser-aCncon 2023 Cyndi-1 extractable nuclear Ab Qn (S) <0.2 Normal <1.0 [facility] Comment on above: Order Comment: Fernando villalobos Type: BLOOD SPECIMEN Ordering Facility: [facility] Address: [address] [place] [address] Performed By: #### 5 1775-5, 44127-0, 91867-8, 55486-1, 52375-7, 17360-0, 43359-2, 81951-6 #### [facility] CLIA [id number] [address] [place] [address] [place] GAYATRI TURNER SPLITTER MACHINE OPERATOR Ab Ser-aCncon 2023 Ribonucleoprotein extractable nuclear Ab Qn (S) <0.2 Normal <1.0 [facility] Comment on above: Order Comment: Fernando villalobos Type: BLOOD SPECIMEN Ordering Facility: [facility] Address: [address] [place] [address] Performed By: #### 5 1775-5, 74470-5, 72577-2, 34995-8, 94007-4, 45975-7, 77491-8, 12249-8 #### [facility] CLIA [id number] [address] [place] [address] [place] GAYATRI SM IgG Ser-aCncon 2023 Faulkner extractable nuclear IgG Qn (S) <0.2 Normal <1.0 [facility] Comment on above: Order Comment: Speci men Type: BLOOD SPECIMEN Ordering Facility: [facility] Address: [address] [place] [address] Performed By: #### 5 1775-5, 86136-4, 41172-8, 87200-0, 94338-0, 77858-1, 19206-9, 91113-9 #### [facility] CLIA [id number] [address] [place] [address] [place] GAYATRI SS-A Ab Ser-aCncon 01-17 Sjogrens syndrome-A extractable nuclear Ab Qn (S) <0.2 Normal <1.0 [facility] Comment on above: Order Comment: Speci men Type: BLOOD SPECIMEN Ordering Facility: [facility] Address: [address] [place] [address] Result Comment: Test Methodology: Multiplex flow immunoassay. Performed By: #### 5 5-5, 15969-2, 76223-5, 87743-1, 33014-0, 84851-6, 41456-1, 75849-6 #### [facility] CLIA [id number] [address] [place] [address] [place] GAYATRI SS-B Ab Ser-aCncon 01-17 Sjogrens syndrome-B extractable nuclear Ab Qn (S) <0.2 Normal <1.0 [facility] Comment on above: Order Comment: Speci men Type: BLOOD SPECIMEN Ordering Facility: [facility] Address: [address] [place] [address] Result Comment: Anti -SSB (anti-La) antibody is used as an aid in diagnosis of a variety of systemic autoimmune diseases, especially for Sjogren's syndrome and systemic lupus erythematosus. Clinical correlation is required. Test Methodology: Multiplex flow immunoassay. Performed By: #### 5 1775-5, 32035-5, 45677-3, 85507-1, 06768-3, 62844-8, 49624-1, 71650-4 #### [facility] CLIA [id number] [address] [place] [address] [place] ESR Westergren method (Bld) [Velocity]on 01-18-2024 ESR (Bld) [Velocity] 12 mm/h [facility] Interpretation and review of laboratory results Normal [facility] ESR (Bld) [Velocity] 12 mm/h Normal 0-20 [facility] Comment on above: Order Comment: Speci men Type: BLOOD SPECIMEN Ordering Facility: [facility] Address: [address] [place] [address] Performed By: #### 5 1775-5, 80662-4, 06425-0, 29859-8, 50421-6, 46009-7, 06840-5, 83916-4 #### [facility] CLIA [id number] [address] [place] [address] [place] HBV core Ab Ser Qlon 024 HBV core Ab Ql (S) Negative Normal Negative [facility] Comment on above: Order Comment: Speci men Type: BLOOD SPECIMEN Ordering Facility: [facility] Address: [address] [place] [address] Result Comment: No e vidence of current or past infection with Hepatitis B virus. Should recent infection be suspected, repeat testing may be considered 3-4 weeks after this draw. Performed By: #### 5 1775-5, 86515-9, 60033-7, 87598-9, 04804-0, 00899-9, 23075-1, 20406-5 #### [facility] CLIA [id number] [address] [place] [address] [place] HBV surface Ab Ql (S)on 12-25 HBV surface Ab Qn (S) 120.75 mIU/mL Normal [facility] Comment on above: Order Comment: Speci men Type: BLOOD SPECIMEN Ordering Facility: [facility] Address: [address] [place] [address] Result Comment: <8 m IU/mL: No serological evidence of immunity to Hepatitis B Virus. >/= 8 to <12 mIU/mL: No serological evidence of immunity to Hepatitis B Virus. >/= 12 mIU/mL: Consistent with serological evidence of immunity to Hepatitis B Virus. Performed By: #### 5 1775-5, 52677-3, 44239-0, 00254-0, 10083-2, 06734-0, 56519-4, 51275-2 #### [facility] CLIA [id number] [address] [place] [address] [place] HBV surface Ab Ser Qlon 12-25 HBV surface Ab Ql (S) Positive Normal [facility] Comment on above: Order Comment: Speci men Type: BLOOD SPECIMEN Ordering Facility: [facility] Address: [address] [place] [address] Result Comment: Cons istent with serological evidence of immunity to Hepatitis B Virus. Performed By: #### 5 1775-5, 27751-7, 20031-2, 53226-3, 71804-2, 56853-4, 75537-9, 65954-6 #### [facility] CLIA [id number] [address] [place] [address] [place] HBV surface Ag Ser Qlon 12-25 HBV surface Ag Ql (S) Negative Normal Negative [facility] Comment on above: Order Comment: Speci men Type: BLOOD SPECIMEN Ordering Facility: [facility] Address: [address] [place] [address] Performed By: #### 5 1775-5, 99679-3, 77798-6, 04411-6, 55561-2, 06965-7, 11474-1, 76068-9 #### [facility] CLIA [id number] [address] [place] [address] [place] HCV Ab Ser Qlon 01-18-2024 HCV Ab Ql (S) Negative Normal Negative [facility] Comment on above: Order Comment: Speci men Type: BLOOD SPECIMEN Ordering Facility: [facility] Address: [address] [place] [address] Result Comment: The result suggests no evidence of active infection with Hepatitis C virus. Should recent infection be suspected, repeat testing may be considered 4-6 weeks after this draw. Performed By: #### 5 1775-5, 65001-7, 62962-8, 52732-3, 63841-3, 71641-5, 74119-6, 70834-7 #### [facility] CLIA [id number] [address] [place] [address] [place] Cyndi-1 extractable nuclear Ab Qn (S)on 01-18-2024 CYNDI 1 ANTIBODY QUAL Negative Normal Negative [facility] Comment on above: Order Comment: Fernando villalobos Type: BLOOD SPECIMEN Ordering Facility: [facility] Address: [address] [place] [address] Result Comment: Anti -CYNDI-1 antibody is used as an aid in diagnosis of polymyositis and dermatomyositis especially with pulmonary involvement. A negative result cannot rule out polymyositis or dermatomyositis. Clinical correlation is required. Test Methodology: Multiplex flow immunoassay. Performed By: #### 5 1775-5, 72461-2, 32150-1, 52568-6, 08638-6, 43705-2, 85297-7, 56756-4 #### [facility] CLIA [id number] [address] [place] [address] [place] No Panel Informationon 01-17 Interpretation and review of laboratory results Normal [facility] RHEUMATOID FACTORon 01-18-20 24 Rheumatoid factor Qn 12 [IU]/mL NINF [facility] Rheumatoid fact SerPl-aCncon 01-18-2024 Rheumatoid factor Qn 12 [IU]/mL Normal <16 [facility] Comment on above: Order Comment: Fernando villalobos Type: BLOOD SPECIMEN Ordering Facility: [facility] Address: [address] [place] [address] Performed By: #### 5 1775-5, 84076-2, 26855-4, 82494-9, 67760-1, 20977-1, 19115-0, 20380-5 #### [facility] CLIA [id number] [address] [place] [address] [place] Rheumatoid factor Qnon 01-17 Interpretation and review of laboratory results Normal [facility] Ribonucleoprotein extractabl e nuclear Ab Qn (S)on 01-18-2024 ANTI-TURNER SPLITTER MACHINE OPERATOR QUAL Negative Normal Negative [facility] Comment on above: Order Comment: Speci men Type: BLOOD SPECIMEN Ordering Facility: [facility] Address: [address] [place] [address] Performed By: #### 5 1775-5, 49202-4, 19340-2, 33050-8, 39016-9, 05520-6, 41354-0, 32654-0 #### [facility] CLIA [id number] [address] [place] [address] [place] RIBOSOMAL TURNER SPLITTER MACHINE OPERATOR QUAL Negative Normal Negative [facility] Comment on above: Order Comment: Sonyai wilfredo Type: BLOOD SPECIMEN Ordering Facility: [facility] Address: [address] [place] [address] Result Comment: Anti -Ribosomal RNA (Ribosomal P) antibody is used as an aid in diagnosis of systemic autoimmune diseases especially systemic lupus erythematosus and mixed connective tissue disease. Cross-reactivity with Anti-faulkner antibody is not uncommon. Clinical correlation is required. Test Methodology: Multiplex flow immunoassay. Performed By: #### 5 5-5, 17745-9, 63087-7, 68363-7, 26056-9, 46269-1, 00469-1, 56301-6 #### [facility] CLIA [id number] [address] [place] [address] [place] SCL-70 extractable nuclear I gG IA Qn (S)on 01-18-2024 SCLERODERMA AB QUAL Negative Normal Negative [facility] Comment on above: Order Comment: Sonyai wilfredo Type: BLOOD SPECIMEN Ordering Facility: [facility] Address: [address] [place] [address] Performed By: #### 5 1775-5, 85395-5, 80876-6, 43604-6, 19720-6, 92534-7, 36716-6, 54884-1 #### [facility] CLIA [id number] [address] [place] [address] [place] SCLERODERMA IGG AB <0.2 Normal <1.0 [facility] Comment on above: Order Comment: Speci men Type: BLOOD SPECIMEN Ordering Facility: [facility] Address: [address] [place] [address] Result Comment: Scl- 70/Scleroderma antibody test is used as an aid in diagnosis of systemic sclerosis especially the diffuse cutaneous form. A negative result cannot rule out systemic sclerosis. The final interpretation should consider clinical picture and other test results such as anti-centromere antibody. Test Methodology: Multiplex flow immunoassay. Performed By: #### 5 1775-5, 21746-3, 08127-4, 76100-3, 02370-5, 79107-9, 26963-2, 80761-7 #### [facility] CLIA [id number] [address] [place] [address] [place] Sjogrens syndrome-A extracta ble nuclear Ab Qn (S)on 01-18-2024 SSA ANTIBODY QUAL Negative Normal Negative [facility] Comment on above: Order Comment: Speci men Type: BLOOD SPECIMEN Ordering Facility: [facility] Address: [address] [place] [address] Performed By: #### 5 1775-5, 70762-2, 31895-2, 51949-2, 13713-5, 84522-8, 12095-2, 66530-7 #### [facility] CLIA [id number] [address] [place] [address] [place] Sjogrens syndrome-B extracta ble nuclear Ab Qn (S)on 01-18-2024 SSB ANTIBODY QUAL Negative Normal Negative [facility] Comment on above: Order Comment: Speci men Type: BLOOD SPECIMEN Ordering Facility: [facility] Address: [address] [place] [address] Performed By: #### 5 1775-5, 41915-9, 92982-1, 36169-7, 32091-5, 90615-9, 76258-6, 50714-1 #### [facility] CLIA [id number] [address] [place] [address] [place] Faulkner extractable nuclear Ig G Qn (S)on 01-18-2024 SM ANTIBODY QUAL Negative Normal Negative [facility] Comment on above: Order Comment: Speci men Type: BLOOD SPECIMEN Ordering Facility: [facility] Address: [address] [place] [address] Result Comment: Anti -Sm (Faulkner) antibody is used as an aid in diagnosis of systemic lupus erythematosus and its presence is associated with renal disease. A negative result cannot rule out systemic lupus erythematosus. Clinical correlation is required. Test Methodology: Multiplex flow immunoassay. Performed By: #### 5 1775-5, 31045-3, 61084-0, 45610-9, 55139-8, 45277-3, 94779-4, 97137-5 #### [facility] CLIA [id number] [address] [place] [address] [place] Urinalysis complete panel (U )on 01-18-2024 Bacteria uL 1237.4 uL High Negative [facility] Bilirubin Ql (U) Negative Negative [facility] Clarity (Unsp spec) Clear Clear [facility] Color (U) Yellow Yellow [facility] Epithelial cells LM.HPF (Urine sed) [#/Area] Moderate /HPF [facility] Glucose Test strip (U) [Mass/Vol] Negative Negative [facility] Hemoglobin Ql (U) Negative Negative [facility] Hyaline casts (Urine sed) [#/Area] 0 /[LPF] 0 /LPF [facility] Interpretation and review of laboratory results Abnormal [facility] Ketones Ql (U) Negative Negative [facility] Leukocyte esterase Test strip Ql (U) Negative Negative [facility] Nitrite Ql (U) Negative Negative [facility] pH (U) 6.5 [pH] NINF - 8.5 [facility] Protein (U) [Mass/Vol] Trace Abnormal Negative [facility] RBC LM.HPF (Urine sed) [#/Area] 0-2 /HPF 0-2 /HPF [facility] Specific gravity (U) [Rel density] 1.019 1.005 - 1.030 [facility] Urobilinogen Ql (U) 0.2 EU/dL 0.2-1.0 EU/dL [facility] WBC LM.HPF (Urine sed) [#/Area] 0-5 /HPF 0-5 /HPF [facility] This test was developed and its performance characteristics determined by [facility]'s [facility] [place] [facility] It has not been cleared or approved by the FDA. [facility] is regulated under CLIA as qualified to perform high-complexity testing. This test is used for clinical purposes. It should not be regarded as investigational or for research. [facility] BACTERIA UL 1237.4 uL High Negative [facility] Comment on above: Order Comment: Speci men Type: URINE SPECIMEN Ordering Facility: [facility] Address: [address] [place] [address] Performed By: #### 2 4356-8 #### [facility] CLIA [id number] [address] [place] [address] [place] Bilirubin Ql (U) Negative Normal Negative [facility] Comment on above: Order Comment: Speci men Type: URINE SPECIMEN Ordering Facility: [facility] Address: [address] [place] [address] Performed By: #### 2 4356-8 #### [facility] CLIA [id number] [address] [place] [address] [place] Clarity (Unsp spec) Clear Normal Clear [facility] Comment on above: Order Comment: Speci men Type: URINE SPECIMEN Ordering Facility: [facility] Address: [address] [place] [address] Performed By: #### 2 4356-8 #### [facility] CLIA [id number] [address] [place] [address] [place] Color (U) Yellow Normal Yellow [facility] Comment on above: Order Comment: Speci men Type: URINE SPECIMEN Ordering Facility: [facility] Address: [address] [place] [address] Performed By: #### 2 4356-8 #### [facility] CLIA [id number] [address] [place] [address] [place] Epithelial cells LM.HPF (Urine sed) [#/Area] Moderate Normal [facility] Comment on above: Order Comment: Speci men Type: URINE SPECIMEN Ordering Facility: [facility] Address: [address] [place] [address] Performed By: #### 2 4356-8 #### [facility] CLIA [id number] [address] [place] [address] [place] Glucose Test strip (U) [Mass/Vol] Negative Normal Negative [facility] Comment on above: Order Comment: Speci men Type: URINE SPECIMEN Ordering Facility: [facility] Address: [address] [place] [address] Performed By: #### 2 4356-8 #### [facility] CLIA [id number] [address] [place] [address] [place] Hemoglobin Ql (U) Negative Normal Negative [facility] Comment on above: Order Comment: Speci men Type: URINE SPECIMEN Ordering Facility: [facility] Address: [address] [place] [address] Performed By: #### 2 4356-8 #### [facility] CLIA [id number] [address] [place] [address] [place] Hyaline casts (Urine sed) [#/Area] 0 /[LPF] Normal 0 /LPF [facility] Comment on above: Order Comment: Speci men Type: URINE SPECIMEN Ordering Facility: [facility] Address: [address] [place] [address] Performed By: #### 2 4356-8 #### [facility] CLIA [id number] [address] [place] [address] [place] Ketones Ql (U) Negative Normal Negative [facility] Comment on above: Order Comment: Speci men Type: URINE SPECIMEN Ordering Facility: [facility] Address: [address] [place] [address] Performed By: #### 2 4356-8 #### [facility] CLIA [id number] [address] [place] [address] [place] Leukocyte esterase Test strip Ql (U) Negative Normal Negative [facility] Comment on above: Order Comment: Speci men Type: URINE SPECIMEN Ordering Facility: [facility] Address: [address] [place] [address] Performed By: #### 2 4356-8 #### [facility] CLIA [id number] [address] [place] [address] [place] Nitrite Ql (U) Negative Normal Negative [facility] Comment on above: Order Comment: Speci men Type: URINE SPECIMEN Ordering Facility: [facility] Address: [address] [place] [address] Performed By: #### 2 4356-8 #### [facility] CLIA [id number] [address] [place] [address] [place] pH (U) 6.5 [pH] Normal <8.5 [facility] Comment on above: Order Comment: Speci men Type: URINE SPECIMEN Ordering Facility: [facility] Address: [address] [place] [address] Performed By: #### 2 4356-8 #### [facility] CLIA [id number] [address] [place] [address] [place] Protein (U) [Mass/Vol] Trace Abnormal Negative [facility] Comment on above: Order Comment: Speci men Type: URINE SPECIMEN Ordering Facility: [facility] Address: [address] [place], [place] [address] Performed By: #### 2 4356-8 #### [facility] CLIA [id number] [address] [place] [address] [place] RBC LM.HPF (Urine sed) [#/Area] 0-2 /HPF Normal 0-2 /HPF [facility] Comment on above: Order Comment: Speci men Type: URINE SPECIMEN [facility] [facility] Address: [address] [place] [address] Performed By: #### 2 4356-8 #### [facility] CLIA [id number] [address] [place] [address] [place] Specific gravity (U) [Rel density] 1.019 Normal 1.005-1.030 [facility] Comment on above: Order Comment: Speci men Type: URINE SPECIMEN Ordering Facility: [facility] Address: [address] [place] [address] Performed By: #### 2 4356-8 #### [facility] CLIA [id number] [address] [place] [address] [place] Urobilinogen Ql (U) 0.2 EU/dL Normal 0.2-1.0 EU/dL [facility] Comment on above: Order Comment: Speci men Type: URINE SPECIMEN Ordering Facility: [facility] Address: [address] [place] [address] Performed By: #### 2 4356-8 #### [facility] CLIA [id number] [address] [place] [address] [place] WBC LM.HPF (Urine sed) [#/Area] 0-5 /HPF Normal 0-5 /HPF [facility] Comment on above: Order Comment: Speci men Type: URINE SPECIMEN Ordering Facility: [facility] Address: [address] [place] [address] Performed By: #### 2 4356-8 #### [facility] CLIA [id number] [address] [place] [address] [place] cCP IgG SerPl-aCncon 11-25-2 024 Cyclic citrullinated peptide IgG Qn <15 Normal <20 [facility] Comment on above: Order Comment: Speci men Type: BLOOD SPECIMEN Ordering Facility: [facility] Address: [address] [place] [address] Performed By: #### 5 1775-5, 01719-7, 44299-2, 26774-6, 43572-0, 42793-1, 81123-3, 56978-3 #### [facility] CLIA [id number] [address] [place] [address] OF [facility] Office Visiton 12-02-2023 Follow-up visit [id number] Essie Steele 1965 F Date Provider Department Center 12/02/2023 SUSANNE JEFFERSON A[facility] Family History Problem Relation Age of Onset Heart attack Mother's Brother Hypertension Maternal Grandmother Family Status - Relation Status Age at Mother's Brother Maternal Grandmother Level of Service:11558 MT OFFICE/OUTPATIENT ESTABLISHED LOW MDM 20 MIN Reason for Visit and Comments: Atrial Fibrillation [80] Normal [facility] CNOVon 11-23-2023 CNOV Office Visit (WCTRMN ) ESSIE STEELE ([id number]) 1965 F Date Time Provider Department 11/23/23 8:00 AM KRISTY EVANGELISTA WCTRMN During your visit today, we recorded the following information about you: Pulse Blood pressure Weight Last Period 71/minute 139/74 108.5 kg 07/24/20 Kristy Evangelista MD 12/12/2023 3:15 PM Signed 58 year old yo W [facility]. .No primary care provider on file. 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 sweating is the worst even in a/c environment on pristiq now x 2 yrs no real help No associated SOB/LH/palpitations/d iaphoresis/n/v/chest pain/pressure/radiati on. Not on exertion. not happy about weight gain hands and hips swell and stiff wears comp hose when goes to work hands swell erythema/mcps mostly and wrists not PIPs no warmth elbows stiffness lasts more than 1 yr GYNE: No LMP recorded. hyst 3 yrs 2020 done for cysts on ovary and pain on left side no cancer and thinks lining was too thick TAHBSO at [facility] had an TVUS and revealed thickened no precancer 1 year amenorrheic prior to that and prior to that was sporadic had dANDc 2 yrs prior to that approx 2019 for menorrhagia used ocp in past from age 18- last pregancy 1999 then tubal no issues no bleeding Vasomotor symptoms: +had them before hyst worsened daytime more than evening hotflashes 4-6x/day some nightsweats once every other day awaken her No dysuria, frequency, urgency, hematuria, +stress occ urge incontinence/no retention. Sexual function: occasionally no New partners. + vaginal dryness, no dysparunia, no postcoital bleeding. Denies abnormal vaginal discharge. Last pap unsure thinks 2 yrs ago. Denies hx. of abnormal paps in past. JAKE in utero exposure: denies Denies frequent UTI/candidiasis. Denies hx. STD. No DM/HTN during pregnancies. last 2 preg had to take dexamethasone for crohn's. 2 miscarriages. BREAST: Denies recent changes in breasts. No nipple discharge, lumps/masses, skin changes. Denies prior Bx. Last mammo 4-6 wks at [facility]. BONE: Denies FMH OP/fx. No PMH OP/non traumatic fracture, +half inch loss of height. Denies lactose intolerance. +prior steroids for crohn's no eating d/o, seizure meds, no prolonged amenorrhea. Not vegan/vegeterian. Takes ca: no Takes D:no Falls: +twice during helping her dgtr move and then also missed a step BMD:very remote denies being low that she recalls Prior meds:no ROS: sweating feels like burning inside, starts in thorax and hair drips after. at rest. Luís dx w afib, had stress test echo, sleep study, controlled now dx when she thought she had URI bc and grandgtr karan switched to asa after wearing heart monitor cardizem just for afib pmh gerd had covid and rsv at that time. she tested negative then ?able associated SOB/no LH/no palpitations/n/v/ches t pain/pressure/radiati on. Not on exertion. 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 PSH: Reviewed and updated. FMH: Reviewed and updated. Denies known breast, ovarian colon, metastatic prostate, pancreatic ca, melanoma M cousin female ca age 18 Allx: as above PHYSICAL EXAM: GEN: alert, cooperative, in no acute distress HEENT:anicteric, A/P: (N95.1) Symptomatic menopausal or female climacteric states (primary encounter diagnosis) Discussed the nature of vasomotor sx. Very symptomatic now w/ likely menopause transition and very disruptive. Reviewed risks/benefits including breast cancer and the data from the women's health study lacking an increased risk in women who have had hysterectomy Discuss with VTE risks; discuss with potential increased risk of stroke and noted that her other risk factors for stroke are minimal We discussed potential/theoretical benefit of transdermal estrogen over oral with more consistent dosing/levels as well as possible lower risk of DVT although not definitive. She denies tape allergy. Offered otc product info.-and also non- hormonal prescription alternatives to HT, including gabapentin, SSRI, and NSRis and briefly discussed the risks benefits of each of these therapies appear. already on pristiq and still very symptomatic Will get BMD and if low will provide further supporting evidence to choose estrogen-based product rather than non-hormonal therapy. She elects to try the HT first a (more content not included)... [facility] Onlyon 11-20-2023 Orders Only [id number] SteeleEssie Christen 1965 F Date Provider Department Center 11/20/2023 [id number], HISTORICAL CARD Brenda Patel Family History Problem Relation Age of Onset Heart attack Mother's Brother Hypertension Maternal Grandmother Family Status - Relation Status Age at Mother's Brother Maternal Grandmother Normal [facility] Orders Onlyon 11-17-2023 Orders Only [id number] GeorginaEssie Velásquez 1965 F Date Provider Department Center 11/17/2023 [id number], HISTORICAL [facility] CARD Anne Gallego Family History Problem Relation Age of Onset Heart attack Mother's Brother Hypertension Maternal Grandmother Family Status - Relation Status Age at Mother's Brother Maternal Grandmother Normal [facility] Office Visiton 05-26-2023 Follow-up visit [id number] GeorginaEssie Velásquez 1965 F Date Provider Department Center 05/26/2023 241-KRISHAN RAMIREZ Family History Problem Relation Age of Onset Heart attack Mother's Brother Hypertension Maternal Grandmother Family Status - Relation Status Age at Mother's Brother Maternal Grandmother Level of Service:06569 MT OFFICE/OUTPATIENT NEW MODERATE MDM 45 MINUTES Reason for Visit and Comments: Follow-up [270065] - Go over echo and stress test results Normal [facility] 36on 04-30-2023 36 Per SG Naqvi regarding recent stress test: Normal stress test. Follow up as planned. She is scheduled to see Dr. Ramirez 05/26/2023. Patient made aware of stress test result. Normal [facility] Office Visiton 03-30-2023 Follow-up visit [id number] GeorginaEssie Velásquez 1965 F Date Provider Department Center 03/30/2023 LOU GARCIA Family History Problem Relation Age of Onset Heart attack Mother's Brother Hypertension Maternal Grandmother Family Status - Relation Status Age at Mother's Brother Maternal Grandmother Level of Service:47017 MT OFFICE/OUTPATIENT ESTABLISHED MOD MDM 30 MIN Normal [facility] INSULINon 06-13-2022 Insulin 8.5 uIU/mL Normal 2.6-24.9 [facility] Comment on above: Performed By: #### I NSULIN #### [facility] [address] [place] [address] Dr. Delonte Sparrow AMMONIAon 06-12-2022 Ammonia (P) [Moles/Vol] 33 umol/L Critically high 11-32 [facility] Comment on above: Performed By: #### A MM #### [facility] [address] [place] [address] Dr. Delonte Sparrow AMYLASEon 06-12-2022 Amylase [Catalytic activity/Vol] 47 U/L Normal 25-115 [facility] Comment on above: Performed By: #### L IPA, CMP, NONI #### [facility] [address] [place] [address] Dr. Delonte Sparrow CBC AUTO DIFFon 06-12-2022 BASO # 0.0 103/ul Normal 0.0-0.1 [facility] Comment on above: Performed By: #### C BC #### [facility] [address] [place] [address] Dr. Delonte Sparrow Basophils/100 WBC (Bld) 0.7 % Normal 0.2-2.0 [facility] Comment on above: Performed By: #### C BC #### [facility] [address] [place] [address] Dr. Delonte Sparrow EO # 0.3 103/ul Normal 0.0-0.7 [facility] Comment on above: Performed By: #### C BC #### [facility] [address] [place] [address] Dr. Delonte Sparrow Eosinophils/100 WBC (Bld) 4.3 % Normal 0.9-7.0 [facility] Comment on above: Performed By: #### C BC #### [facility] [address] [place] [address] Dr. Delonte Sparrow Erythrocyte distribution width (RBC) [Ratio] 15.0 % Normal 11.0-15.0 [facility] Comment on above: Performed By: #### C BC #### [facility] [address] [place] [address] Dr. Delonte Sparrow Hematocrit (Bld) [Volume fraction] 38.8 % Normal 36.0-48.0 [facility] Comment on above: Performed By: #### C BC #### [facility] [address] [place] [address] Dr. Delonte Sparrow Hemoglobin (Bld) [Mass/Vol] 12.0 g/dL Normal 12.0-16.0 [facility] Comment on above: Performed By: #### C BC #### [facility] [address] [place] [address] Dr. Delonte Sparrow IG # 0.03 10e3/ul Normal 0.00-0.03 [facility] Comment on above: Performed By: #### C BC #### [facility] [address] [place] [address] Dr. Delonte Sparrow IG % 0.5 % Normal 0.0-0.5 [facility] Comment on above: Performed By: #### C BC #### [facility] [address] [place] [address] Dr. Delonte Sparrow LYMPH # 1.7 103/ul Normal 1.2-3.8 [facility] Comment on above: Performed By: #### C BC #### [facility] [address] [place] [address] Dr. Delonte Sparrow Lymphocytes/100 WBC (Bld) 27.3 % Normal 20.5-60.0 [facility] Comment on above: Performed By: #### C BC #### [facility] [address] [place] [address] Dr. Delonte Sparrow MANUAL DIFF REQ NO Normal [facility] Comment on above: Performed By: #### C BC #### [facility] [address] [place] [address] Dr. Delonte Sparrow MCH (RBC) [Entitic mass] 24.1 pg Critically low 26.7-34.0 [facility] Comment on above: Performed By: #### C BC #### [facility] [address] [place] [address] Dr. Delonte Sparrow MCHC (RBC) [Mass/Vol] 30.9 g/dL Normal 29.9-35.2 [facility] Comment on above: Performed By: #### C BC #### [facility] [address] [place] [address] Dr. Delonte Sparrow MCV (RBC) [Entitic vol] 78.1 fL Critically low 81.0-99.0 [facility] Comment on above: Performed By: #### C BC #### [facility] [address] [place] [address] Dr. Delonte Sparrow MONO # 0.4 103/ul Normal 0.3-0.8 [facility] Comment on above: Performed By: #### C BC #### [facility] [address] [place] [address] Dr. Delonte Sparrow Monocytes/100 WBC (Bld) 6.4 % Normal 1.7-12.0 [facility] Comment on above: Performed By: #### C BC #### [facility] [address] [place] [address] Dr. Delonte Sparrow NEUT # 3.7 103/ul Normal 1.4-6.5 [facility] Comment on above: Performed By: #### C BC #### [facility] [address] [place] [address] Dr. Delonte Sparrow Neutrophils/100 WBC (Bld) 60.8 % Normal 43.0-75.0 [facility] Comment on above: Performed By: #### C BC #### [facility] [address] [place] [address] Dr. Delonte Sparrow Platelet mean volume (Bld) [Entitic vol] 9.7 fL Normal 9.5-13.5 [facility] Comment on above: Performed By: #### C BC #### [facility] [address] [place] [address] Dr. Delonte Sparrow PLT 263 103/ul Normal 150-450 [facility] Comment on above: Performed By: #### C BC #### [facility] [address] [place] [address] Dr. Delonte Sparrow RBC 4.97 106/ul Normal 4.20-5.40 [facility] Comment on above: Performed By: #### C BC #### [facility] [address] [place] [address] Dr. Delonte Sparrow WBC 6.1 103/ul Normal 4.0-11.0 [facility] Comment on above: Performed By: #### C BC #### [facility] [address] [place] [address] Dr. Delonte Sparrow FREE THYROXINE INDEX T7on FTI 2.61 Normal 1.30-4.50 [facility] Comment on above: Performed By: #### L IPA CMP, NONI #### [facility] [address] [place] [address] Dr. Delonte Sparrow T3U 33.0 % Normal 30.0-39.0 [facility] Comment on above: Performed By: #### L IPA CMP, NONI #### [facility] [address] [place] [address] Dr. Delonte Sparrow T4 [Mass/Vol] 7.90 ug/dL Normal 4.80-13.90 [facility] Comment on above: Performed By: #### L IPA CMP, NONI #### [facility] [address] [place] [address] Dr. Delonte Sparrow GLYCOHEMOGLOBIN A1Con 2022 ADA RECOMMENDATION SEE BELOW Normal [facility] Comment on above: Result Comment: ADA RECOMMENDED LIMIT 4.0 - 6.0 ADA THERAPEUTIC TARGET < 7.0 ACTION SUGGESTED > 7.0 Performed By: #### A 1C #### [facility] [address] [place] [address] Dr. Delonte Sparrow Glucose [Mass/Vol] 105 mg/dL Normal [facility] Comment on above: Performed By: #### A 1C #### [facility] [address] [place] [address] Dr. Dleonte Sparrow HbA1c (Bld) [Mass fraction] 5.3 % Normal 4.5-6.2 [facility] Comment on above: Performed By: #### A 1C #### [facility] [address] [place] [address] Dr. Delonte Sparrow IRONon 06-12-2022 Iron [Mass/Vol] 35.0 ug/dL Critically low 50.0-170.0 [facility] Comment on above: Performed By: #### L IPA, CMP, NONI #### [facility] [address] [place] [address] Dr. Delonte Sparrow LIPASEon 06-12-2022 Lipase [Catalytic activity/Vol] 130.0 U/L Normal 73.0-393.0 [facility] Comment on above: Performed By: #### L IPA, CMP, NONI #### [facility] [address] [place] [address] Dr. Delonte Sparrow TSHon 06-12-2022 TSH 1.741 uIU/mL Normal 0.358-3.740 [facility] Comment on above: Performed By: #### L IPA, CMP, NONI #### [facility] [address] [place] [address] Dr. Delonte Sparrow VITAMIN D 25 OHon 06-12-2022 VIT D 25-OH 20.9 ng/mL Normal [facility] Comment on above: Performed By: #### I AMANDA VITAD #### [facility] [address] [place] [address] Dr. Delonte Sparrow VIT D RANGES SEE BELOW Normal [facility] Comment on above: Result Comment: <20 ng/mL Vit D deficient 20 - <30 ng/mL Vit D insufficient 30 - 100 ng/mL Vit D sufficient >100 ng/mL Potential Toxicity Performed By: #### I AMANDA VITAD #### [facility] [address] [place] [address] Dr. Delonte Sparrow AMYLASEon 08-21-2021 Amylase [Catalytic activity/Vol] 26 U/L Normal 25-115 [facility] Comment on above: Performed By: #### L IPA, CMP, NONI #### [facility] [address] [place] [address] Dr. Delonte Sparrow CBC W MANUAL DIFFon 08-22-19 22 ATYPICAL LYMPH # Normal [facility] Comment on above: Performed By: #### C BRITT #### [facility] [address] [place] [address] Dr. Delonte Sparrow ATYPICAL LYMPH % Normal [facility] Comment on above: Performed By: #### C BRITT #### [facility] [address] [place] [address] Dr. Delonte Sparrow BAND # Normal 0.0-0.3 [facility] Comment on above: Performed By: #### C BRITT #### [facility] [address] [place] [address] Dr. Delonte Sparrow BAND % Normal 0-5 [facility] Comment on above: Performed By: #### C BRITT #### [facility] [address] [place] [address] Dr. Delonte Sparrow BASOM # 0.00 103/ul Normal 0.00-0.10 [facility] Comment on above: Performed By: #### C BRITT #### [facility] [address] [place] [address] Dr. Delonte Sparrow BASOM % 0.0 % Critically low 0.2-2.0 [facility] Comment on above: Performed By: #### C BRITT #### [facility] [address] [place] [address] Dr. Delonte Sparrow BLAST # Normal [facility] Comment on above: Performed By: #### C BRITT #### [facility] [address] [place] [address] Dr. Delonte Sparrow BLAST % Normal [facility] Comment on above: Performed By: #### C BRITT #### [facility] [address] [place] [address] Dr. Delonte Sparrow CORRECTED WBC Normal 4.0-11.0 [facility] Comment on above: Performed By: #### C BRITT #### [facility] [address] [address] [address] Delonte Sparrow EOS # 15.45 103/ul Critically high 0.00-0.70 [facility] Comment on above: Performed By: #### C BRITT #### [facility] [address] [address] [address] Delonte Sparrow EOS% 57.0 % Critically high 0.9-7.0 [facility] Comment on above: Performed By: #### C BRITT #### [facility] [address] [address] [address] Delonte Sparrow HCT 45.1 % Normal 36.0-48.0 [facility] Comment on above: Performed By: #### C BRITT #### [facility] [address] [place] [address] Dr. Delonte Sparrow HGB 13.9 g/dl Normal 12.0-16.0 [facility] Comment on above: Performed By: #### C BRITT #### [facility] [address] [place] [address] Dr. Delonte Sparrow LYMPHM # 2.98 103/ul Normal 1.20-3.80 [facility] Comment on above: Performed By: #### C BRITT #### [facility] [address] [place] [address] Dr. Delonte Sparrow LYMPHM% 11.0 % Critically low 20.5-60.0 [facility] Comment on above: Performed By: #### Pravin DE LA TORRE #### [facility] [address] [address] [address] Delonte Sparrow MCH 23.3 pg Critically low 26.7-34.0 [facility] Comment on above: Performed By: #### Pravin DE LA TORRE #### [facility] [address] [place] [address] Dr. Delonte Sparrow MCHC 30.8 g/dl Normal 29.9-35.2 [facility] Comment on above: Performed By: #### Pravin DE LA TORRE #### [facility] [address] [place] [address] Dr. Delonte Sparrow MCV 75.5 fL Critically low 81.0-99.0 [facility] Comment on above: Performed By: #### C BCMAN #### [facility] [address] [place] [address] Dr. Delonte Sparrow METAMYELOCYTE # Normal [facility] [place] Comment on above: Performed By: #### C BCSEA #### [facility] [address] [place] [address] Dr. Delonte Sparrow METAMYELOCYTE % Normal [facility] [place] Comment on above: Performed By: #### C BCMAN #### [facility] [address] [place] [address] Dr. Delonte Sparrow MONOM# 1.63 103/ul Critically high 0.30-0.80 [facility] Comment on above: Performed By: #### C BRITT #### [facility] [address] [place] [address] Dr. Delonte Sparrow MONOM% 6.0 % Normal 1.7-12.0 [facility] Comment on above: Performed By: #### C BRITT #### [facility] [address] [place] [address] Dr. Delonte Sparrow MPV 9.9 fL Normal 9.5-13.5 [facility] Comment on above: Performed By: #### C BRITT #### [facility] [address] [place] [address] Dr. Delonte Sparrow MYELOCYTE # Normal [facility] Comment on above: Performed By: #### C BRITT #### [facility] [address] [place] [address] Dr. Delonte Sparrow MYELOCYTE % Normal [facility] Comment on above: Performed By: #### C BRITT #### [facility] [address] [place] [address] Dr. Delonte Sparrow NRBC Normal [facility] Comment on above: Performed By: #### C BRITT #### [facility] [address] [place] [address] Dr. Delonte Sparrow PLT 343 103/ul Normal 150-450 [facility] Comment on above: Performed By: #### C BCSEA #### [facility] [address] [place], [place] [address] Dr. Delonte Sparrow RBC 5.97 106/ul Critically high 4.20-5.40 [facility] Comment on above: Performed By: #### C BRITT #### [facility] [address] [place], [place] [address] Dr. Delonte Sparrow RDW 16.9 % Critically high 11.0-15.0 [facility] [place] Comment on above: Performed By: #### C BRITT #### [facility] [address] [place], [place] [address] Dr. Delonte Sparrow SEG # 7.05 103/ul Critically high 1.40-6.50 [facility] Comment on above: Performed By: #### C BRITT #### [facility] [address] [place], [place] [address] Dr. Delonte Sparrow SEG % 26.0 % Critically low 43.0-75.0 [facility] Comment on above: Performed By: #### C BRITT #### [facility] [address] [place], [place] [address] Dr. Delonte Sparrow WBC 27.1 103/ul Critically high 4.0-11.0 [facility] Comment on above: Performed By: #### C BRITT #### [facility] [facility] [address] [place], [place] [address] ABD/PELV W CONon 08-22-[address] ABD/PELV W CON CT ABDOMEN AND PELVI S WITH CONTRAST: INDICATION: Weight loss finding. Upper [...] is no aneurysm of the abdominal aorta. PERITONEUM/RETROPERIT ONEUM: There is mild to moderate ascites. No [...] DWIGHT TOBAR Date: 2021-08-21 16:48 Normal [facility] LIPASEon 08-21-2021 Lipase [Catalytic activity/Vol] 58.0 U/L Critically low 73.0-393.0 [facility] Comment on above: Performed By: #### L IPA, CMP, NONI #### [facility] [address] [place] [address] Dr. Delonte Sparrow PROF 14(COMP METB)on 022 Albumin [Mass/Vol] 3.6 g/dL Normal 3.4-5.[address] [facility] Comment on above: Performed By: #### L IPA, CMP, NONI #### [facility] [address] [place] [address] Dr. Delonte Sparrow Albumin/Globulin [Mass ratio] 1.0 {ratio} Normal [facility] Comment on above: Performed By: #### L IPA, CMP, NONI #### [facility] [address] [place] [address] Dr. Delonte Sparrow ALP [Catalytic activity/Vol] 125 U/L Critically high 46-116 [facility] Comment on above: Performed By: #### L IPA, CMP, NONI #### [facility] [address] [place] [address] Dr. Delonte Sparrow ALT [Catalytic activity/Vol] 27 U/L Normal 14-59 [facility] Comment on above: Performed By: #### L IPA, CMP, NONI #### [facility] [address] [place] [address] Dr. Delonte Sparrow Anion gap [Moles/Vol] 12.7 mmol/L Normal [facility] Comment on above: Performed By: #### L IPA, CMP, NONI #### [facility] [address] [place] [address] Dr. Delonte Sparrow AST [Catalytic activity/Vol] 15 U/L Normal 15-37 [facility] Comment on above: Performed By: #### L IPA, CMP, NONI #### [facility] [address] [place] [address] Dr. Delonte Sparrow Bilirubin [Mass/Vol] 0.3 mg/dL Normal 0.2-1.0 [facility] Comment on above: Performed By: #### L IPA, CMP, NONI #### [facility] [address] [place] [address] Dr. Delonte Sparrow Calcium [Mass/Vol] 8.2 mg/dL Critically low 8.5-10.1 [facility] Comment on above: Performed By: #### L IPA, CMP, NONI #### [facility] [address] [place] [address] Dr. Delonte Sparrow Chloride [Moles/Vol] 103 mmol/L Normal 98-107 [facility] Comment on above: Performed By: #### L IPA CMP, NONI #### [facility] [address] [place] [address] Dr. Delonte Sparrow CO2 [Moles/Vol] 29.2 mmol/L Normal 21.0-32.0 [facility] Comment on above: Performed By: #### L IPA CMP, NONI #### [facility] [address] [place] [address] Dr. Delonte Sparrow Creatinine [Mass/Vol] 0.81 mg/dL Normal 0.55-1.02 [facility] Comment on above: Performed By: #### L IPA CMP, NONI #### [facility] [address] [place] [address] Dr. Delonte Sparrow EGFR-AF KYRGYZ >60 Normal >=60 [facility] Comment on above: Performed By: #### L IPA CMP, NONI #### [facility] [address] [place] [address] Dr. Delonte Sparrow EGFR-NON AF KYRGYZ >60 Normal >=60 [facility] Comment on above: Performed By: #### L IPA CMP, NONI #### [facility] [address] [place] [address] Dr. Delonte Sparrow Globulin (S) [Mass/Vol] 3.7 g/dL Normal [facility] Comment on above: Performed By: #### L IPA CMP, NONI #### [facility] [address] [place] [address] Dr. Delonte Sparrow Glucose [Mass/Vol] 103 mg/dL Normal 74-[address] [facility] Comment on above: Performed By: #### L IPA, CMP, NONI #### [facility] [address] [place] [address] Dr. Delonte Sparrow Potassium [Moles/Vol] 3.9 mmol/L Normal 3.5-5.1 [facility] Comment on above: Performed By: #### L IPA, CMP, NONI #### [facility] [address] [place] [address] Dr. Delonte Sparrow Protein [Mass/Vol] 7.3 g/dL Normal 6.4-8.[address] [facility] Comment on above: Performed By: #### L ADELE OCONNELL, NONI #### [facility] [address] [address] [address] Delonte Sparrow Sodium [Moles/Vol] 141 mmol/L Normal 136-145 [facility] Comment on above: Performed By: #### Christen OCONNELL CMP, NONI #### [facility] [address] [place] [address] Dr. Delonte Sparrow Urea nitrogen [Mass/Vol] 16.0 mg/dL Normal 7.0-18.0 [facility] Comment on above: Performed By: #### L ADELE OCONNELL, NONI #### [facility] [address] [place] [address] Dr. Delonte Sparrow Urea nitrogen/Creatinine [Mass ratio] 19.8 mg/mg Normal [facility] Comment on above: Performed By: #### L ADELE OCONNELL, NONI #### [facility] [address] [place] [address] Dr. Delonte Awan 06-22-2020 L - -------- Specimen: [id number] Received: 06/22/20 Status: DB Sofia Num: [id number] Spec Type: Surgical Subm Dr: René Ly Jr, DO Tissues: A Small Intestine - Biopsy/Polyp (TERMINAL ILEUM) B Colon - Polyp (RECTOSIGMOID POLYP) Procedures: HE Stain/4, Gross/Micro L4/2 -------- Patient Age/Sex Location Account Attending Physician -------- Essie Steele 55/F [id number] René Ly Jr, DO -------- SPEC NUM: [id number] RECD: 06/22/207 STATUS: DB BLACK NUM: [id number] GAVINO: 06/22/20-124[facility] DR: René Ly Jr, ENTERED: 06/22/20-1154 [facility] DR: SONYA TYPE: Surgical DEPT: S ORDERED: [...] submitted in one cassette labeled B1. (SM/YJ) -------- Specimen: [id number] Received: 06/22/20 Status: DB Black Num: [id number] Spec Type: Surgical Subm Dr: René Ly Jr, DO Tissues: A Small Intestine - Biopsy/Polyp (TERMINAL ILEUM) B Colon - Polyp (RECTOSIGMOID POLYP) Procedures: HE Stain/4, Gross/Micro L4/2 -------- Patient: Essie Steele [id number] (Continued) -------- Specimen: Received: 06/22/20 (Continued) Signed (signature on file) Iveth Patel MD 06/25/20 1528 -------- Specimen: [id number] Received: 06/22/20 Status: DB Black Num: [id number] Spec Type: Surgical Subm Dr: René Ly Jr, DO Tissues: A Small Intestine - Biopsy/Polyp (TERMINAL ILEUM) B Colon - Polyp (RECTOSIGMOID POLYP) Procedures: HE Stain/4, Gross/Micro L4/2 -------- Patient: Essie Steele [id number] (Continued) -------- Specimen: Received: 06/22/20 (Continued) Microscopic Description A. Two glass slides with H E stained material have been examined. The microscopic findings support the above pathologic diagnosis. B. Two glass slides with H E stained material have been examined. The microscopic findings support the above pathologic diagnosis. CPT Codes 78655?2 -------- -------- Specimen: [id number] Received: 06/22/20 Status: DB Black Num: [id number] Spec Type: Surgical Subm Dr: René Ly Jr, Tissues: A Small Intestine - Biopsy/Polyp (TERMINAL ILEUM) B Colon - Polyp (RECTOSIGMOID POLYP) Procedures: HE Stain/4, Gross/Micro L4/2 -------- Patient: Essie Steele [id number] (Continued) -------- Signed (signature on file) Iveth Patel MD 06/25/20 1528 Normal [facility] SARS-CoV-2 (COVID-19) RNA WES+probe Ql (Unsp spec) Negative Normal Negative [facility] Comment on above: Order Comment: 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 This test has not been FDA [...] is terminated or revoked sooner. PERFORMED BY: [place] [address] PATHOLOGIST WARP TESTER NIALL MILAN M.D. Performed By: #### C OVID-19 [facility] #### [address] COVID-19 Positive/Negativeon 06-20-2020 SARS-CoV-2 (COVID-19) N gene WES+probe Ql (Resp) Negative Negative [facility] Comment on above: Testing for SARS-CoV -2 by RT-PCRThis test was developed and its performance characteristics determined by [employer] ([employer]) and validated at the [facility]. 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 - Endocervical/transfor mation zone component present. - Scant cellularity, predominantly inflammatory exudate. Descriptive Diagnosis: Negative for intraepithelial lesion or malignancy. Shift in bruce suggestive of bacterial vaginosis. [place] Floor Layer: HARJIT Valera(ASCP) Electronically Signed Out bessie/04/23/2018 [facility] Comment on above: Performed By: #### P PPVP #### [facility] [address] [place] [address] Easement Man: Karthik Lynn MD Vital Signs Date Time Vital Sign Value Performing Clinician Facility 01-18-2024 09:[id number] Body height 168.9 cm Renny Baron MD Work Phone: [facility] 01-18-2024 09:19-0500 Body mass index (BMI) [Ratio] 38.27 kg/m2 Renny Baron MD Work Phone: [facility] 01-18-2024 09:19-0500 Body temperature 97.2 [degF] Renny Baron MD Work Phone: [facility] 01-18-2024 09:19-0500 Body weight 109.2 kg Renny Baron MD Work Phone: [facility] 01-18-2024 09:19-0500 Diastolic blood pressure 100 mm[Hg] Renny Baron MD Work Phone: [facility] 01-18-2024 09:19-0500 Heart rate 68 /min Renny Baron MD Work Phone: [facility] 01-18-2024 09:19-0500 Systolic blood pressure 153 mm[Hg] Renny Baron MD Work Phone: [facility] 11-23-2023 08:11-0400 Body weight 108.5 kg Kristy Evangelista MD Work Phone: [facility] 11-23-2023 08:11-0400 Diastolic blood pressure 74 mm[Hg] Kristy Evangelista MD Work Phone: [facility] 11-23-2023 08:11-0400 Heart rate 71 /min Kristy Evangelista MD Work Phone: [facility] 11-23-2023 08:11-0400 Systolic blood pressure 139 mm[Hg] Kristy Evangelista MD Work Phone: [facility] 10-07-2022 09:30-0400 Body height 170.18 cm Philippe Wise Other [facility] 10-07-2022 09:30-0400 Body mass index (BMI) [Ratio] 34.45 kg/m2 Philippe Wise Other [facility] 10-07-2022 09:30-0400 Body weight 99.79 kg Philippe Wise Other [facility] 10-07-2022 09:30-0400 Diastolic blood pressure 83 mm[Hg] Philippe Wise Other [facility] 10-07-2022 09:30-0400 Systolic blood pressure 139 mm[Hg] Philippe Wise Other [facility] 08-29-2021 12:00-0400 Body height 170.18 cm René Ly Other [facility] 08-29-2021 12:00-0400 Body mass index (BMI) [Ratio] 35.55 kg/m2 René Ly Other [facility] 08-29-2021 12:00-0400 Body weight 102.97 kg René Ly Other [facility] 08-29-2021 12:00-0400 Diastolic blood pressure 89 mm[Hg] René Ly Other [facility] Other 08-29-2021 12:00-0400 Systolic blood pressure 142 mm[Hg] René Ly Other [facility] Other Encounters Encounter Date Encounter Type Care Provider Facility Start: 01-20-2024 End: 01-20-2024 Get Medical Advice Renny Baron MD Work Phone: Rheumatology Comment on above: Xrays order Start: 01-18-2024 End: 01-18-2024 ambulatory RENNY BARON Facility:[facility] Start: 01-18-2024 End: 01-18-2024 Office outpatient new 60 minutes Renny Baron MD Work Phone: Rheumatology Comment on above: Encounter for long-t erm (current) use of medications (Primary Dx); Crohn's disease of large intestine without complication (HCC); Arthritis; Enthesitis; Arthralgia, unspecified joint Start: 01-18-2024 End: 01-18-2024 ambulatory KRISTY EVANGELISTA Facility:[facility] Start: 01-18-2024 End: 01-18-2024 Subsequent hospital visit by physician Bone Density Main A21 1 Radiology Comment on above: Symptomatic menopaus al or female climacteric states [N95.1] Start: 12-02-2023 End: 12-02-2023 ambulatory SUSANNE [facility] Start: 11-23-2023 End: 11-23-2023 ambulatory KRISTY EVANGELISTA Facility:[facility] Start: 11-23-2023 End: 11-23-2023 Patient encounter procedure Kristy Evangelista MD Work Phone: [facility] Comment on above: Symptomatic menopaus al or female climacteric states (Primary Dx); Paroxysmal atrial fibrillation (HCC); Gastroesophageal reflux disease without esophagitis; Migraine with aura and with status migrainosus, not intractable; Crohn's disease of large intestine without complication (HCC); Arthritis Start: 09-24-2023 End: 09-24-2023 ambulatory GODWIN HARRELL Not Available Start: 07-01-2023 End: 07-01-2023 ambulatory [facility] Start: 05-26-2023 End: 05-26-2023 ambulatory [facility] Start: 03-30-2023 End: 03-30-2023 ambulatory [facility] Start: 10-07-2022 End: 10-07-2022 ambulatory Philippe Wise Other [facility] Other Start: 10-07-2022 Patient encounter procedure Philippe Wise [facility] Start: 07-07-[address] KAYY PANIAGUA . Facili ty:[facility] Start: 06-12-2022 End: 06-13-[address] AKYY PANIAGUA . Facility: Start: 08-29-2021 End: 08-29-2021 ambulatory René Ly Other [facility] Other Start: 08-29-2021 Office outpatient vi sit 25 minutes René Ly [facility] Start: 08-21-2021 End: 08-22-[address] KAYY PANIAGUA . Facility: Start: 06-20-2020 End: 06-20-2020 Patient encounter procedure Nader Paniagua Work Phone: -Pre-Surgical Testing Start: 04-12-2018 Encounter for gynecological examination (general) (routine) without abnormal findings [facility] Start: 04-12-2018 End: 04-13-2018 [facility] Date Procedure Procedure Detail Performing Clinician Start: 01-18-2024 Dxa bone density apollo dy / sites axial skel Kristy Evangelista MD Work Phone: Start: 04-12-2018 Screen pap by gisela cleveland md supv ADA LUNA Plan of Treatment Date Care Activity Detail Author Start: 01-17-2027 Diabetes Screening Diabetes Screenin [facility] Start: 03-14-2024 End: 03-14-2024 Patient encounter procedure 03/14/2024 11:20 AM EST Office Visit [facility] [address] [id number] Kristy Evangelista MD [address] [place], [place] [id number] 3 MONTH FOLLOW UP [facility] Comment on above: 3 MONTH FOLLOW UP Start: 02-08-2024 End: 02-08-2024 ambulatory 02/08/2024 9:30 AM EST [facility] [address] [id number] Renny Baron MD [address] [address] 3w f/u - discuss results Rheumatology Comment on above: 3w f/u - discuss res ults Start: 01-18-2024 End: 04-18-2024 BLOOD TB SCREEN [facility] Comment on above: Expected: 01/18/2024 , Expires: 04/18/2024 Start: 01-18-2024 End: 04-18-2024 Cyclic citrullinated peptide IgG Ab [Units/volume] in Serum or Plasma [facility] Comment on above: Expected: 01/18/2024 , Expires: 04/18/2024 Start: 01-18-2024 End: 04-18-2024 DNA double strand Ab [Units/volume] in Serum by Immunoassay [facility] Comment on above: Expected: 01/18/2024 , Expires: 04/18/2024 Start: 01-18-2024 End: 04-18-2024 Extractable nuclear Ab panel - Serum [facility] Comment on above: Expected: 01/18/2024 , Expires: 04/18/2024 Start: 01-18-2024 End: 01-18-2024 Patient encounter procedure Radiology Comment on above: DXA-AXIAL SKELETON, Symptomatic menopausal or female climacteric states [N95.1], BD DXA TRABECULAR BONE SCORE (TBS),.Symptomatic menopausal or female climacteric states [N95.1] Arthritis [M19.90] Start: 10-25-2023 Covid-19 Vaccine ( season) Covid-19 Vaccine () [facility] Start: 10-25-2023 Influenza vaccination Influenza Vacc ine (#1) [facility] Start: 04-12-2021 Screening for malign ant neoplasm of cervix Cervical Cancer Screening [facility] Start: 01-17-2016 Shingrix Vaccine (1 of 2) Shingrix Vaccine (1 of 2) [facility] Start: 2011 Diabetes Screening Diabetes Screenin g [facility] Start: 2011 Lipid panel Lipid Screening [facility] Start: 2011 Screening for malign ant neoplasm of colon [facility] Start: 2006 Screening for malign ant neoplasm of breast Mammogram Screening [facility] Start: 1985 Hepatitis B Vaccine (1 of 3 - 19+ 3-dose series) Hepatitis B Vaccine (1 of 3 - 19+ 3-dose series) [facility] Start: 1985 Urine microalbumin profile DTaP,Tdap,Td Vaccine (1 - Tdap) [facility] Start: 01-17-1984 Anxiety Screening Anxiety Screening [facility] Start: 01-17-1984 Depression Screening Depression Scre ening [facility] Start: 01-17-1984 Hepatitis C screening Hepatitis C Sc ke[facility] Start: 01-17-1984 HIV screening HIV Screening [facility] End: 12-22-2024 BD DXA TRABECULAR BONE SCORE (TBS) BD DXA TRABECULAR BONE SCORE (TBS) Radiology Routine Symptomatic menopausal or female climacteric states 1 Occurrences starting 11/23/2023 until 12/22/2024 [facility] Comment on above: 1 Occurrences starti ng 11/23/2023 until 12/22/2024 End: 12-22-2024 DXA Skeletal system.axial Views for bone density DXA-AXIAL SKELETON Radiology Routine Symptomatic menopausal or female climacteric states 1 Occurrences starting 11/23/2023 until 12/22/2024 [facility] Work Phone: Comment on above: 1 Occurrences starti ng 11/23/2023 until 12/22/2024 End: 02-16-2025 XR Hand - bilateral PA and Lateral XR HAND 2V PA/LAT BILATERAL Radiology Routine Arthritis 1 Occurrences starting 01/18/2024 until 02/16/2025 [facility] Comment on above: 1 Occurrences starti ng 01/18/2024 until 02/16/2025 End: 02-16-2025 XR Sacroiliac Joint Views XR SACROILIAC JOINTS 2V AP PELVIS/FERGUESON Radiology Routine Arthritis 1 Occurrences starting 01/18/2024 until 02/16/2025 [facility] Work Phone: Comment on above: 1 Occurrences starti ng 01/18/2024 until 02/16/2025 End: 02-16-2025 XR Shoulder - left 2 Views XR SHOULDER LIMITED 2V AP/TRUE AP LEFT Radiology Routine Arthritis 1 Occurrences starting 01/18/2024 until 02/16/2025 [facility] Comment on above: 1 Occurrences starti ng 01/18/2024 until 02/16/2025 End: 02-16-2025 XR Shoulder - right 2 Views XR SHOULDER [id number] AP/TRUE AP RIGHT Radiology Routine Arthritis 1 Occurrences starting 01/18/2024 until 02/16/2025 [facility] Comment on above: 1 Occurrences starti ng 01/18/2024 until 02/16/2025 Immunizations Immunization Date Immunization Notes Care Provider [facility] 12-07-2015 influenza virus vacc ine, unspecified formulation Kristy Evangelista MD Work Phone: [facility] Payers Date Payer Category Payer Private Health Insurance ANGELO CLARKE POS [id number] 2017-Present [phone] [address] [place] [address] POS [id number] 1966 Unknown [id number] 1966 Unknown [id number] 1966 Unknown [id number] 1966 Unknown [id number] 1966 Unknown [id number] 1958 Private Health Insurance [id number] Self-pay [employer] [id number] Unknown [employer] [id number] Social History Date Type Detail Facility Start: 11-03-2018 Tobacco smoking stat [email or web address] Ex-smoker (finding) [facility] Start: 1965 Sex Assigned At Female [facility] Start: 11-23-2023 End: 01-18-2024 Sex Assigned At [facility] Start: 11-23-2023 Tobacco smoking stat [email or web address] Never smoked tobacco [facility] Start: 11-23-2023 Tobacco use and exposure Smokeless tobacco non-user [facility] Start: 11-23-2023 End: 01-18-2024 Alcoholic beverage intake Current drinker of alcohol (finding) [facility] Start: 11-23-2023 End: 01-18-2024 History of Social function [facility] Start: 11-23-2023 [facility] Start: 1965 Sex assigned at Not on file [facility] Adult Depression Screening Assessment 2 [facility] Goals Date Patient Goal Desired Activity /State Clinical Notes 07-24-2020 to 01-20-2024 Telephone Encounter - Kori Banks RN - 01/20/2024 11:37 AM ESTTelephone Encounter - Kori Banks RN - 01/20/2024 11:37 AM Renny Beckham MD - 01/18/2024 10:00 AM ESTPatient Instructions Note Date & Type Note Facility 01-20-2024 Telephone encounter Note Spoke with pt and confirmed she would like x-[place] [address]. Called [facility] outpatient radiology dept and obtained fax number of [phone]. X-ray orders from 01/18/2024 faxed with confirmation of fax receipt received. Advised pt to please let us know once x-rays are completed, so that we can ensure that we received the results. Pt verbalized understanding. [facility] 01-20-2024 Miscellaneous Notes Spoke with pt and confirmed she would like x-ray orders faxed to [address] [address] Called [facility] outpatient radiology dept and obtained fax number of [phone]. X-ray orders from 01/18/2024 faxed with confirmation of fax receipt received. Advised pt to please let us know once x-rays are completed, so that we can ensure that we received the results. Pt verbalized understanding. documented in this encounter [facility] 01-18-2024 History of Present illness Narrative Images from the original note were not included. Rheumatology CONSULTATION Date of Service: 01/18/2024 Patient: Essie Steele Primary Care Physician: Kayy Paniagua ([place], [place]) Last Rheumatology visit: None at [facility] Referring Provider: Kristy Evangelista [address] [facility] [address] Essie Steele is here today at request of Dr. Evangelista specifically for consultation of my opinion in regards to the chief complaint listed below. Correspondence will be shared today via the [facility] electronic health record or through regular mail, where applicable. History of Present Illness Essie Steele is a 59 year old White female with history of PAF (02/2023), CD (no immunosuppression) who presents on 01/18/2024 for an in-person visit for evaluation of Joint Pain. She is currently taking celecoxib. Reason for visit: arthritis She had a hysterectomy 3 years ago and afterwards had difficulty sleeping, hot flashes, weight gain (70lbs), excess fatigue. Around the same time, she has also noticed more joint pain. Specifically in her hands she has felt swelling in her MCPs. Feels that her rings are having a harder time fitting but also has had weight gain. Bl hand, left>right shoulder (left handed) hurt the most but elbow, lower back all hurt. Sometimes it feels that the pain radiates down her bone from shoulder down her arm. She had EMS for ~1h that improves with movement but worst pain is at night when she is laying down. Reported she had +KAELA Exacerbated by specific positions and worse with use (end of the day). Alleviated by tylenol (1000mg BID) or motrin (800mg daily prn). Motrin helps more than tylenol. She wakes up several times after she falls asleep and never wakes up feeling rested. Amenorrhea x1 year. She was evaluated by women's medicine and started on HRT for symptomatic menopause. The estrogen patch helped with the hot flashes. Positive in bold otherwise negative fever, hair shedding wo alopecia, malar rash, oral/nasal ulcers, serositis (only with afib), photosensitivity, joint swelling/EMS, hematuria, foaming urine, psychosis, delirium, seizure, Raynaud's, renal issues, known low WBC, Hgb (think CD related), Plt, neutrophils, lymphocytes, miscarriages (1st trimester: 2), pre-eclampsia, blood clots. Dry eyes, some dry mouth (cavities), skin, vaginal dryness (started with menopause symptoms). Positive in bold. Uveitis, PsO, family hx of PsO (grandson PsO), diarrhea/hematochezia, IBD (CD), recurrent enthesitis (golf/tennis elbow, plantar fascitis, improved with insert), inflammatory back pain (lower back pain started after 51, worsened 3 years ago worse at the end of the day, better with rest and worse with movement), dactylitis, DIP swelling CD - Dx age 20 - flared, isaac with but has been stable off medications for the last 5 years except for occassional dicyclomine - About 1/month cramping. Currently feels ok from CD standpoint. - Previously on pentasa, steroids Tx - motrin, tylenol Pain Evaluation 11/23/2023 01/17/2024 Pain Evaluation Pain Score 3 Location Generalized Wrist-Right Location Comment joint pain Description Aching;Cramping;Numbness;Radiati ng;Sharp;Shooting;Stiffness;Tigh tness Duration (Timeframe) Months Frequency Continuous Intervention Medication;Reposition;Imagery;Pi marlysw support Patient-Entered Data PROMIS Assessments 01/17/2024 PROMIS Global Health - (T-Scores - the mean of general population = 50. Five points is a clinically meaningful difference.) Physical T-Score 29.6 Mental T-Score 33.8 01/17/2024 PROMIS CAT Pain Interference PROMIS Pain Interference T-Score (range: 10 - 90) 67 (moderate) PROMIS Pain Interference Percentile 4 PROMIS Adult Short Form-Global Health Score (Mental) 33.8 (Fair) 01/17/2024 PROMIS CAT Fatigue PROMIS Fatigue T-Score 68 (moderate) PROMIS Fatigue Percentile 4 01/17/2024 PROMIS PHYSICAL FUNCTION T-SCORE PROMIS Physical Function T-Score 35 (moderate dysfunction) Physical Function Percentile 7 RAPID 3 [place] Activities of Daily Living 01/17/2024 5:49 PM Dress self? With SOME difficulty Get in and out of bed? Without ANY difficulty Walk outdoors? With SOME difficulty Wash and dry body? With SOME difficulty Get in and out of car? With SOME difficulty RAPID 3 Disease Activity Weighed Score Levels: 0 - 1: Near Remission 1.3 - 2.0: Low Severity 2.3 - 4.0: Moderate Severity 4.3 - 10.0: High Severity 01/17/2024 RAPID-3 Weighed Score RAPID 3 Weighed Score 4.72 (High severity ) Review of Systems Review of Systems CONSTITUTION: Positive for: Recent weight change Negative for: Fever HEENT: Negative for: Nosebleeds, Mouth sores, Trouble swallowing and Dry mouth RESPIRATORY: Positive for: Shortness of breath Negative for: Cough and Pain with breathing HERNANDEZ with going up steps or walking faster. Thinks this has been worse with weight gain GASTROINTESTINAL: Positive for: Diarrhea and Heartburn Negative for: Melena and Abdominal pain MUSCULOSKELETAL: Positive for: Arthralgias, Myalgias, Muscle weakness, Joint swelling and Morning Joint Stiffness NEUROLOGICAL: Positive for: Headaches Negative for: Numbness and Memory loss SKIN: Negative for: Rash, Skin changes, Hair loss and Nail changes EYES: Positive for: Eye dryness Negative for: Eye pain, Eye redness and visual disturbance CARDIOVASCULAR: Negative for: Chest pain and Leg swelling GENITOURINARY: Negative for: Dysuria and Hematuria HEMATOLOGIC/LYMPHATIC: Negative for: Swollen glands All other reviewed and negative other than HPI. 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 acetaminophen 325 mg-caffeine 40 mg-butalbital 50 mg (FIORICET) per tablet Take 1 tablet by mouth. desvenlafaxine ER (PRISTIQ) 100 mg 24 hr tablet Take 100 mg by mouth once daily. dicyclomine (BENTYL) 20 mg tablet as directed. dilTIAZem CD (CARDIZEM CD, CARTIA XT) 180 mg 24 hr capsule Take 180 mg by mouth every morning. pantoprazole DR (PROTONIX) 40 mg tablet Take 1 tablet by mouth every 12 hours. estradiol (VIVELLE-DOT) 0.0375 mg/24 hr patch Apply 1 Patch as directed two times a week. celecoxib (CELEBREX) 100 mg capsule Take 1 capsule by mouth two times a day. fluticasone (FLONASE) 50 mcg/actuation nasal spray once daily. loratadine (CLARITIN) 10 mg tablet once daily. Labs Latest Ref Rng & Units 01/18/2024 CBC WBC 3.70 - 11.00 k/uL 7.92 Hemoglobin 11.5 - 15.5 g/dL 12.8 Hematocrit 36.0 - 46.0 % 40.8 Platelet Count 150 - 400 k/uL 292 Abs Neut (ANC) 1.45 - 7.50 k/uL 4.93 Abs Lymph 1.00 - 4.00 k/uL 1.99 Latest Ref Rng & Units 01/18/2024 ESR, WSR WSR 0 - 20 mm/hr 12 Latest Ref Rng & Units 01/18/2024 Hepatitis Screen Hep B Core Ab, Total Negative Negative Hep B Surf Ab Qual Positive Hep C Antibody IA Negative Negative Hep B Surface Ag Negative Negative Latest Ref Rng & Units 01/18/2024 Urinalysis Protein, Urine Negative Trace RBC, Urine 0-2 /HPF 0-2 /HPF Imaging Last XR Chest - Impression Only No resulted procedures found. Health Maintenance Current Immunizations Reviewed on 01/18/2024 Name Date COVID-19 vaccine, monovalent (MODERNA) 04/04/2020, 03/07/2020 Physical Exam VITAL SIGNS: BP 153/100 Pulse 68 Temp (Src) 97.2 (Temporal) Ht 5' 6.5 (1.69m) Wt 240 lb 11.9 oz (109.2kg) LMP 07/24/2020 BMI 38.28 kg/(m^2). Physical Exam GEN: NAD SKIN: No rash, no nail pitting EYES: no eye erythema HENT: No oral ulcers, normal external examination of the ears and nose, lips, oropharynx and tongue, normal salivary flow NECK: No mass or asymmetry. RESPIRATORY: Normal respiratory effort. CTAB CARDIOVASCULAR: RRR without gallop, murmur, or rub ABDOMEN: BS normal. No tenderness NEUROLOGIC: 5/5 strength in biceps/triceps, 5/5 strength in quads/hamstring, 5/5 knee flexors/extensors MUSCULOSKELETAL EXAMINATION: Full ROM of UE and LE with the following exceptions: -No exceptions No tenderness, synovitis effusion of the neck, bl shoulders, elbows, wrists, hands, SI, trochanteric bursa, knees, ankles, and toes with the following exceptions: - Achilles tenderness - Negative Capirce's - tenderness and swelling as per homunculus otherwise normal Joint Exam 01/18/2024 Right Left Glenohumeral Tender Tender IP (thumb) Tender PIP 3 (finger) Tender Sacroiliac Tender Joint Exam Data (across time) 01/18/2024 Joint Exam Total Tender 4 Total Swollen 0 Impression/Plan Diagnoses: (Z79.899) Encounter for long-term (current) use of medications (primary encounter diagnosis) (K50.10) Crohn's disease of large intestine without complication (HCC) (M19.90) Arthritis (M77.9) Enthesitis (M25.50) Arthralgia, unspecified joint 59 year old with hx of CD (dx age 20, no daily tx) who presents for evaluation of polyarticular arthralgias. Favor that her arthralgias are more related to mechanical arthritis (OA, DJD) as she is worse with use and worse at the end of the day. Sometimes arthralgias can occur with menopause and her hot flashes are mildly improved with HRT. 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 There was left SI tenderness and bl Achilles insertion tenderness but no clear effusions/synovitis on exam today. Her back pain by history is more c/w mechanical (started >age 51, worse with use, better with rest but does improve some with NSAIDs). Consider Sjgoren's with sicca sx though sicca sx can also increase after menopause # Arthralgias: OA/DJD pain worse with use wo synovitis, possible postmenopausal. Consider IBD related arthropathy with history of CD - Mechanical joint pain: Discussed importance of wt loss, Consider PT - Celebrex, some studies that suggest that celebrex may be better in well controlled CD than other NSAIDs though no NSAID is preferred. Partial benefit with ibuprofen. Risks/benefits discussed. Discussed the importance of not taking other NSAIDs while taking celebrex. - GAYATRI (include SSA/SSB for Sjogren's), dsDNA, C3, C4, UA, Urine Prot/Cr, SED, CRP, RF, CCP - CBC, CMP, hepatitis, quant gold in case need to start DMARD/biologic - Xray hands, shoulder SI joints. Consider US of hands or US ankle/foot to further evaluate for inflammatory arthritis/tendonitis. - Briefly discussed possibility of ssz isaac with enthesitis. If sacroiliitis, then biologic such as anti-TNFai # Positive KAELA: low suspicion for SLE/CTD (hair shedding but no alopcia, joint pain could be IBD related or OA, prior anemia was CD related) -GAYATRI (include SSA/SSB for Sjogren's), dsDNA, C3, C4, UA, Urine Prot/Cr - Discussed that +KAELA can be found in 5-20% of the normal population and is not indicative of underlying autoimmune condition without specific associated sx. At this time, there is no evidence of SLE but if pt develops new symptoms, please come back for evaluation. Orders this visit: Office Visit on 01/18/24 XR SACROILIAC JOINTS 2V AP PELVIS/FERGUESON XR HAND 2V PA/LAT BILATERAL XR SHOULDER [id number] AP/TRUE AP RIGHT XR SHOULDER LIMITED 2V AP/TRUE AP LEFT RHEUMATOID FACTOR CCP ANTIBODY IGG ANTI GAYATRI ID DNA AB DS + CONF BLD C3 COMPLEMENT C4 COMPLEMENT COMPLETE BLOOD COUNT AND DIFFERENTIAL COMPREHENSIVE METABOLIC PANEL HEP REMOTE PANEL BL BLOOD TB SCREEN URINALYSIS, WITH MICROSCOPIC SEDIMENTATION RATE, WESTERGREN C-REACTIVE PROTEIN CONSULT TO RHEUM/IMMUN DISEASE CONSULT TO PHYSICAL THERAPY celecoxib (CELEBREX) 100 mg capsule Return 2-3 weeks to discuss results. I spent a total of 70 minutes on the date of the service which included preparing to see the patient, [id number] patient care, completing clinical documentation, obtaining and/or reviewing separately obtained history, performing a medically appropriate examination, counseling and educating the patient/family/caregiver, ordering medications, tests, or procedures, and communicating results to the patient/family/caregiver. Renny Baron MD PhD Rheumatology documented in this encounter [facility] 01-18-2024 Note HNO ID: [id number] Author: RENNY BARON MD Service: ? Author Type: Physician Type: Progress Notes Filed: 01/18/2024 18:39 Note Text: Rheumatology CONSULTATION Date of Service: 01/18/2024 Patient: Essie Steele Primary Care Physician: Kayy Paniagua ([place], [place]) Last Rheumatology visit: None at [facility] Referring Provider: Krsity Evangelista [id number] [facility] [id number] Essie Steele is here today at request of Dr. Evangelista specifically for consultation of my opinion in regards to the chief complaint listed below. Correspondence will be shared today via the [employer] electronic health record or through regular mail, where applicable. History of Present Illness Essie Steele is a 59 year old White female with history of PAF (02/2023), CD (no immunosuppression) who presents on 01/18/2024 for an in-person visit for evaluation of Joint Pain. She is currently taking celecoxib. Reason for visit: arthritis She had a hysterectomy 3 years ago and afterwards had difficulty sleeping, hot flashes, weight gain (70lbs), excess fatigue. Around the same time, she has also noticed more joint pain. Specifically in her hands she has felt swelling in her MCPs. Feels that her rings are having a harder time fitting but also has had weight gain. Bl hand, left>right shoulder (left handed) hurt the most but elbow, lower back all hurt. Sometimes it feels that the pain radiates down her bone from shoulder down her arm. She had EMS for ~1h that improves with movement but worst pain is at night when she is laying down. Reported she had +KAELA Exacerbated by specific positions and worse with use (end of the day). Alleviated by tylenol (1000mg BID) or motrin (800mg daily prn). Motrin helps more than tylenol. She wakes up several times after she falls asleep and never wakes up feeling rested. Amenorrhea x1 year. She was evaluated by women's medicine and started on HRT for symptomatic menopause. The estrogen patch helped with the hot flashes. Positive in bold otherwise negative fever, hair shedding wo alopecia, malar rash, oral/nasal ulcers, serositis (only with afib), photosensitivity, joint swelling/EMS, hematuria, foaming urine, psychosis, delirium, seizure, Raynaud's, renal issues, known low WBC, Hgb (think CD related), Plt, neutrophils, lymphocytes, miscarriages (1st trimester: 2), pre-eclampsia, blood clots. Dry eyes, some dry mouth (cavities), skin, vaginal dryness (started with menopause symptoms). Positive in bold. Uveitis, PsO, family hx of PsO (grandson PsO), diarrhea/hematochezia, IBD (CD), recurrent enthesitis (golf/tennis elbow, plantar fascitis, improved with insert), inflammatory back pain (lower back pain started after 51, worsened 3 years ago worse at the end of the day, better with rest and worse with movement), dactylitis, DIP swelling CD - Dx age 20 - flared, isaac with but has been stable off medications for the last 5 years except for occassional dicyclomine - About 1/month cramping. Currently feels ok from CD standpoint. - Previously on pentasa, steroids Tx - motrin, tylenol Pain Evaluation 11/23/2023 01/17/2024 Pain Evaluation Pain Score 3 Location Generalized Wrist-Right Location Comment joint pain Description Aching;Cramping;Numbness;Radiati ng;Sharp;Shooting;Stiffness;Tigh tness Duration (Timeframe) Months Frequency Continuous Intervention Medication;Reposition;Imagery;Pi vanessa support Patient-Entered Data PROMIS Assessments 01/17/2024 PROMIS Global Health - (T-Scores - the mean of general population = 50. Five points is a clinically meaningful difference.) Physical T-Score 29.6 Mental T-Score 33.8 01/17/2024 PROMIS CAT Pain Interference PROMIS Pain Interference T-Score (range: 10 - 90) 67 (moderate) PROMIS Pain Interference Percentile 4 PROMIS Adult Short Form-Global Health Score (Mental) 33.8 (Fair) 01/17/2024 PROMIS CAT Fatigue PROMIS Fatigue T-Score 68 (moderate) PROMIS Fatigue Percentile 4 01/17/2024 PROMIS PHYSICAL FUNCTION T-SCORE PROMIS Physical Function T-Score 35 (moderate dysfunction) Physical Function Percentile 7 RAPID 3 [place] Activities of Daily Living 01/17/2024 5:49 PM Dress self? With SOME difficulty Get in and out of bed? Without ANY difficulty Walk outdoors? With SOME difficulty Wash and dry body? With SOME difficulty Get in and out of car? With SOME difficulty RAPID 3 Disease Activity Weighed Score Levels: 0 - 1: Near Remission 1.3 - 2.0: Low Severity 2.3 - 4.0: Moderate Severity 4.3 - 10.0: High Severity 01/17/2024 RAPID-3 Weighed Score RAPID 3 Weighed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 2 VIEWS Renny Baron MD [address] [place] [address] [place] [address] Referral ID Status Reason Start Date Expiration Date Visits Requested Visits Authorized [id number] New Request Auto-Generat ed Referral 4 02/16/2025 1 1 Specialty Diagnoses / Procedures Referred By Contac t Referred To Contact XR IMAGING Diagnoses Arthritis Procedures XR HAND 2V PA/LAT BILATERAL RADEX HAND 2 VIEWS Renny Baron MD [address] [place] [address] [place] [address] Referral ID Status Reason Start Date Expiration Date Visits Requested Visits Authorized [id number] New Request Auto-Generat ed Referral 4 02/16/2025 1 1 Specialty Diagnoses / Procedures Referred By Contac t Referred To Contact XR IMAGING Diagnoses Arthritis Procedures XR SACROILIAC JOINTS 2V AP PELVIS/FERGUESON RADIOLOGIC EXAMINATION SACROILIAC JNTS <3 VIEWS Renny Baron MD [address] [place] [phone] [place] [address] Referral ID Status Reason Start Date Expiration Date Visits Requested Visits Authorized [id number] New Request Auto-Generat ed Referral 4 02/16/2025 1 1 Specialty Diagnoses / Procedures Referred By Contac t Referred To Contact Rheumatology Diagnoses Crohn's disease of large intestine without complication (HCC) Arthritis Procedures CONSULT TO RHEUM/IMMUN DISEASE OFFICE/OUTPATIENT NEW HIGH MDM 60 MINUTES Kristy Evangelista MD [address] [place] [address] Referral ID Status Reason Start Date Expiration Date Visits Requested Visits Authorized [id number] Authorized PCP Requested Referral 11/23/2023 11/22/2024 1 1 Specialty Diagnoses / Procedures Referred By Contac t Referred To Contact XR IMAGING Diagnoses Symptomatic menopausal or female climacteric states Procedures DXA-AXIAL SKELETON DXA BONE DENSITY STUDY / SITES AXIAL SKEL Kristy Evangelista MD [address] [place] [address] Xr Imaging [place] [address] Referral ID Status Reason Start Date Expiration Date Visits Requested Visits Authorized [id number] Authorized Auto-Generat ed Referral 11/23/2023 12/22/2024 1 1 Additional Source Comments INFORMATION SOURCE (unrecogn ized section and content) DATE CREATED AUTHOR 04/25/2018 [facility] DATE CREATED AUTHOR AUTHOR'S ORGANIZ ATION 04/04/2021 [facility] DATE CREATED AUTHOR AUTHOR'S ORGANIZ ATION 07/07/2022 [facility] DATE CREATED AUTHOR AUTHOR'S ORGANIZ ATION 09/26/2023 [facility] DATE CREATED AUTHOR AUTHOR'S ORGANIZ ATION 12/11/2023 [facility] DATE CREATED AUTHOR AUTHOR'S ORGANIZ ATION 01/20/2024 [facility] REASON FOR VISIT (unrecogniz ed section and content) Reason Comments Joint Pain Specialty Diagnoses / Procedures Referred By Contac t Referred To Contact Rheumatology Diagnoses Crohn's disease of large intestine without complication (HCC) Arthritis Procedures CONSULT TO RHEUM/IMMUN DISEASE OFFICE/OUTPATIENT [facility] MDM 60 MINUTES Kristy Evangelista MD [address] [place] [address] Referral ID Status Reason Start Date Expiration Date V isits Requested Visits Authorized [id number] Closed PCP Requested Referral 11/23/2023 11/22/2024 1 1 Source Comments (unrecognize d section and content) In the event this informatio n is protected by the Federal Confidentiality of Alcohol and Drug Abuse Patient Records regulations: The Federal rules restrict any use of the information to criminally investigate or prosecute any alcohol or drug abuse patient.[facility] the event this information is protected by the Federal Confidentiality of Alcohol and Drug Abuse Patient Records regulations: The Federal rules restrict any use of the information to criminally investigate or prosecute any alcohol or drug abuse patient.[facility] the event this information is protected by the Federal Confidentiality of Alcohol and Drug Abuse Patient Records regulations: The Federal rules restrict any use of the information to criminally investigate or prosecute any alcohol or drug abuse patient.[facility] the event this information is protected by the Federal Confidentiality of Alcohol and Drug Abuse Patient Records regulations: The Federal rules restrict any use of the information to criminally investigate or prosecute any alcohol or drug abuse patient.[facility] FOR RECORDS PERTAINING TO PATIENTS WHO ARE [...] BE BASED ON THE PRIMARY CLINICAL RECORDS. [facility]. provides no warranty or guarantee of the accuracy or completeness of information in this document.
== END 2024-01-27 14:32 | disposition home or self-care (01) ==
LOC: RAD 14:31
PROVIDERS: PCP Family Medicine
DX: M19.90 Unspecified osteoarthritis, unspecified site (principal); M16.0 Bilateral primary osteoarthritis of hip; M19.012 Primary osteoarthritis, left shoulder; M19.011 Primary osteoarthritis, right shoulder
CPT/HCPCS: 72170; 72202; 73030; 73120

== ENCOUNTER 2024-03-14 15:18 | Outpatient (OUT) | payer OTHER, SELFPAY ==
--- OUTSIDE RECORDS SUMMARY | 2024-03-14 15:23 | XMS_ITS | CCD ---
Author Organization [facility] Care Team Providers Care Document Control Assistant Name Role Phone ADA LUNA Referring Unavailable KAYY PANIAGUA Primary Care Unavailable Nader Paniagua Primary Care Provider René Ly Attending Provider René Ly Unavailable HOJacob ., DR SUL[place] Admitting Unavailable [...] Unavailable Unavailable Primary Care Provider UnavailRENNY Nielson Attending Unavailable KRISTY EVANGELISTA Referring Unavailable KRISTY EVANGELISTA Referring Unavailable KRISTY EVANGELISTA Attending Unavailable SELF Referring Unavailable RENNY BARON Attending Unavailable RENNY BARON Referring Unavailable NILZacarias Velásquez Attending Unavailable Kayy Paniagua Referring Unavailable Allergies Allergy Classification Reported Allergen(s) Allergy Type Date of Onset Reaction(s) Facility (13 sources) Codeine; Translations: [CODEINE] Drug Allergy 9 GI Upset, Other: See Comments [facility] Repository (13 sources) Meperidine; Translations: [MEPERIDINE] Drug Allergy 1 Unknown, Vomiting [facility] Repository (1 source) Codeine Drug Allergy [facility] Repository (1 source) Meperidine Drug Allergy [facility] Repository Medications Current Medications Medication Drug Class(es) Dates Sig (Normalized) Sig (Original) Acetaminophen (2 sources) Tylenol PRN Acti ve Tylenol Active acetaminophen 325 mg / butalbital 50 mg / caffeine 40 mg oral tablet (9 sources) Barbiturate, Central Nervous System Stimulant, Methylxanthine Start: 04-06-2017 take 1 tablet by mouth once acetaminophen 325 mg-caffeine 40 mg-butalbital 50 mg (FIORICET) per tablet Take 1 tablet by mouth. 04/06/2017 Active aspirin 81 mg delayed release oral tablet (9 sources) Platelet Aggregation Inhibitor, Nonsteroidal Anti-inflammatory Drug aspirin, enteric coated (ASPIRIN, ENTERIC COATED) 81 mg EC tablet Take 81 mg by mouth. Active celecoxib 100 mg oral capsule (7 sources) Nonsteroidal Anti-inflammatory Drug Start: 01-18-2024 End: 02-29-2024 take 1 capsule by mouth twice daily celecoxib (CELEBREX) 100 mg capsule TAKE 1 CAPSULE BY MOUTH TWICE A DAY 60 capsule 1 02/29/2024 Active ciprofloxacin 500 mg oral tablet (1 source) Quinolone Antimicrobial Start: 08-29-2021 take 1 tablet by mouth every twelve hours Cipro 500 MG 1 tablet Orally every 12 hrs for 7 days Aug, Active 24 hr desvenlafaxine succinate 25 mg extended release oral tablet (12 sources) Serotonin and Norepinephrine Reuptake Inhibitor Start: [...] Active dicyclomine hydrochloride 20 mg oral tablet (11 sources) Anticholinergic Start: 06-22-2020 dicyclomine (B ENTYL) 20 mg tablet as directed. 06/22/2020 Active take 1 tablet by mouth twice sharon ly Dicyclomine HCl 20 MG TAKE 1 TABLET BY MOUTH TWICE A DAY Active 24 hr dilTIAZem hydrochloride 180 mg extended release oral capsule (9 sources) Calcium Channel José Miguel take 1 capsule by mouth once daily in the morning, then take 1 capsule by mouth every twenty-four hours dilTIAZem CD (CARDIZEM CD, CARTIA XT) 180 mg 24 hr capsule Take 180 mg by mouth every morning. Active 84 hr estradiol 0.05855 mg/hr transdermal system (10 sources) Estrogen Start: 4 End: 5 estradiol (VIVELLE-DOT) 0.0375 mg/24 hr patch Apply 1 Patch as directed two times a week. 30 Patch 1 03/01/2024 08/28/2024 Active Excedrin Extra Strength (2 sources) Excedrin Extra Strength PRN Active Excedrin Extra S trength Active fluticasone propionate 0.05 mg/actuat metered dose nasal spray (10 sources) Corticosteroid Start: 11-02-2018 Fluticasone Pr opionate (Flonase Allergy Relief) 50 mcg/actuation [place],Suspension Active 1 SPRAY INTRANASAL Daily November 02, 2018 2:15pm Start: 11-02-2018 fluticasone (F LONASE) 50 mcg/actuation nasal spray once daily. 11/02/2018 Active loratadine 10 mg oral tablet (12 sources) Start: 11-02-2018 loratadine (CL ARITIN) 10 mg tablet once daily. 11/02/2018 Active Claritin Active 24 hr mesalamine 375 mg extended release oral capsule (1 source) Aminosalicylate Start: 11-03-2018 take 1 capsule by mouth once daily Mesalamine (Apriso) 0.375 gram capsule,extended release 24hr Active 1.5 GM PO Daily 120 November 03, 2018 9:14am pantoprazole 40 mg delayed release oral tablet (11 sources) Proton Pump Inhibitor Start: 11-11-2023 take [...] (2 sources) Hemorrhoids; Translations: [Unspecified hemorrhoids] Episodic Immunizations and screening for infectious disease (1 source) Anti-nuclear factor positive; Translations: [Other specified abnormal immunological findings in serum] 02-08-2024 Episodic Menopausal disorders (3 sources) Menopausal symptom; Translations: [Menopausal and female climacteric states] Onset: 4 11-23-2023 Chronic Noninfectious gastroenteritis (2 sources) Ileitis; Translations: [Noninfective gastroenteritis and colitis, unspecified] Episodic Nutritional deficiencies (1 source) Vitamin D deficiency, unspecified; Translations: [VITAMIN D DEFICIENCY UNSPECIFIED] Onset: 3 Chronic Osteoarthritis (3 sources) Arthritis; Translations: [Unspecified osteoarthritis, unspecified site] Onset: 4 11-23-2023 Chronic Other aftercare (2 sources) Long-term current use of drug therapy; Translations: [Other shelter (current) drug therapy] 01-18-2024 Episodic Other aftercare (1 source) Other long term acute care registered nurse (current) drug therapy; Translations: [Encounter for long-term (current) use of medications] Onset: 4 Episodic Other connective tissue disease (2 sources) Enthesitis; Translations: [Enthesopathy, unspecified] 01-18-2024 Episodic Other gastrointestinal disorders (1 source) Irritable bowel syndrome with diarrhea; Translations: [Irritable bowel syndrome with diarrhea] Chronic Other gastrointestinal disorders (1 source) Irritable bowel syndrome with diarrhea Chronic Other gastrointestinal disorders (2 sources) Abnormal feces; Translations: [Other fecal abnormalities] Episodic Other gastrointestinal disorders (2 sources) Diarrhea; Translations: [Diarrhea, unspecified] Episodic Other nervous system disorders (1 source) Carpal tunnel syndrome of left wrist; Translations: [Carpal tunnel syndrome, left upper limb] 02-08-2024 Chronic Other non-traumatic joint disorders (2 sources) Joint pain; Translations: [Pain in unspecified joint] 01-18-2024 Episodic Other nutritional; endocrine; and metabolic disorders (1 source) Overweight; Translations: [Overweight] Onset: 9 Chronic Regional enteritis and ulcerative colitis (18 sources) Crohn's disease of terminal ileum; Translations: [...] Jan 18 2024 9:08AM MCB 0804 - DXA - AXIAL SKELETON / PROCEDURE REASON: Symptomatic menopausal or female climacteric states * * * * Physician Interpretation * * * * EXAMINATION: DXA BONE DENSITOMETRY BD DXA - AXIAL SKELETON PATIENT DEMOGRAPHICS: Age: 59 years, Gender: Female SCANNER INFORMATION: DXA Model: [employer] (S/N: [id number]) Date Scanned: 01/18/2024 9:08 AM CLINICAL HISTORY: [...] had a previous bone density in the [facility] or the previous bone density was performed on a different DXA machine (new, updated model or different location) within the [facility]. VERTEBRAL FRACTURE ASSESSMENT Not performed. TRABECULAR BONE [...] FOR MORE INFORMATION ABOUT DIAGNOSIS AND TREATMENT: [facility] for Osteoporosis and Metabolic Bone Disease:? www.ccf.org/arthritis /osteo National Osteoporosis Foundation:? www.nof.org International Society of Clinical Densitometry www.iscd.org Supervisor [facility]: [id number] Transcribe Date/Time: Jan 18 2024 9:10A Dictated by : ALEC ARCE MD This examination was interpreted and the report reviewed and electronically signed by: ALEC ARCE MD on Jan 18 2024 9:59PM EST [id number] N -0.1 Normal [facility] BLOOD TB SCREENon 01-18-2024 M. tuberculosis tuberculin stim IFN-g Ql (Bld) Negative Normal [facility] Comment on above: Order Comment: Fernando villalobos Type: BLOOD SPECIMEN Ordering Facility: [facility] Address: [address] [place] [address] Performed By: #### I NFTBP #### [facility] CLIA [id number] [address] [place] [address] [place] MITOGEN MINUS NIL >9.97 Normal >=0.50 [facility] Comment on above: Order Comment: Fernando villalobos Type: BLOOD SPECIMEN Ordering Facility: [facility] Address: [address] [place] [address] Performed By: #### I NFTBP #### [facility] CLIA [id number] [address] [place] [address] [place] TB GAMMA INTERPRETATION Infection with M. tuberculosis complex is unlikely. If latent tuberculosis infection is highly suspected, a negative result does not rule out the infection. Specimens from immunocompromised patients and those <5 years of age may show false negative results. In case of a contact investigation, please repeat 8-12 weeks after a known exposure. Normal [facility] Comment on above: Order Comment: Fernando villalobos Type: BLOOD SPECIMEN Ordering Facility: [facility] Address: [address] [place] [address] Performed By: #### I NFTBP #### [facility] CLIA [id number] [address] [place] [address] [place] TB NIL 0.03 IU/mL Normal <=8.00 [facility] Comment on above: Order Comment: Speci men Type: BLOOD SPECIMEN Ordering Facility: [facility] Address: [address] [place] [address] Performed By: #### I NFTBP #### [facility] CLIA [id number] [address] [place] [address] [place] TB1 AG MINUS NIL 0.05 IU/mL Normal <0.35 [facility] Comment on above: Order Comment: Speci men Type: BLOOD SPECIMEN Ordering Facility: [facility] Address: [address] [place] [address] Performed By: #### I NFTBP #### [facility] CLIA [id number] [address] [place] [address] [place] TB2 AG MINUS NIL 0.02 IU/mL Normal <0.35 [facility] Comment on above: Order Comment: Speci men Type: BLOOD SPECIMEN Ordering Facility: [facility] Address: [address] [place] [address] Performed By: #### I NFTBP #### [facility] CLIA [id number] [address] [place] [address] [place] C-REACTIVE PROTEINon 024 CRP [Mass/Vol] 0.7 mg/dL NINF - 0.9 mg/dL [facility] C3 COMPLEMENTon 01-18-2024 Complement C3 [Mass/Vol] 158 mg/dL 86 - 166 mg/dL [facility] C3 SerPl-mCncon 01-18-2024 Complement C3 [Mass/Vol] 158 mg/dL Normal 86-166 [facility] Comment on above: Order Comment: Speci men Type: BLOOD SPECIMEN Ordering Facility: [facility] Address: [address] [place] [address] Performed By: #### 5 1775-5, 62368-3, 91200-6, 35021-4, 28959-0, 57918-9, 62559-7, 57053-1 #### [facility] CLIA [id number] [address] [place] [address] [place] C4 COMPLEMENTon 01-18-2024 Complement C4 [Mass/Vol] 28 mg/dL 13 - 46 mg/dL [facility] C4 SerPl-mCncon 01-18-2024 Complement C4 [Mass/Vol] 28 mg/dL Normal 13-46 [facility] Comment on above: Order Comment: Speci men Type: BLOOD SPECIMEN Ordering Facility: [facility] Address: [address] [place] [address] Performed By: #### 5 5-5, 76821-9, 98985-8, 11182-9, 23388-2, 18910-3, 41058-2, 28530-8 #### [facility] CLIA [id number] [address] [place] [address] [place] CBC W Auto Differential pane l (Bld)on 01-18-2024 Basophils (Bld) [#/Vol] 0.08 10*3/uL [facility] Basophils/100 WBC (Bld) 1.0 % [facility] Differential cell count method Nom (Bld) Auto [facility] Eosinophils (Bld) [#/Vol] 0.32 10*3/uL [facility] Eosinophils/100 WBC (Bld) 4.0 % [facility] Erythrocyte distribution width (RBC) [Ratio] 14.2 % 11.5 - 15.0 % [facility] Hematocrit (Bld) [Volume fraction] 40.8 % 36.0 - 46.0 % [facility] Hemoglobin (Bld) [Mass/Vol] 12.8 g/dL 11.5 - 15.5 g/dL [facility] Immature granulocytes (Bld) [#/Vol] 0.06 10*3/uL [facility] Immature granulocytes/100 WBC (Bld) 0.8 % [facility] Interpretation and review of laboratory results Abnormal [facility] Lymphocytes (Bld) [#/Vol] 1.99 10*3/uL [facility] Lymphocytes/100 WBC (Bld) 25.1 % [facility] MCH (RBC) [Entitic mass] 24.7 pg Low 26.0 - 34.0 pg [facility] MCHC (RBC) [Mass/Vol] 31.4 g/dL 30.5 - 36.0 g/dL [facility] MCV (RBC) [Entitic vol] 78.6 fL Low 80.0 - 100.0 fL [facility] Monocytes (Bld) [#/Vol] 0.54 10*3/uL [facility] Monocytes/100 WBC (Bld) 6.8 % [facility] Neutrophils (Bld) [#/Vol] 4.93 10*3/uL [facility] Neutrophils/100 WBC (Bld) 62.3 % [facility] Nucleated RBC (Bld) [#/Vol] [facility] Nucleated RBC/100 WBC (Bld) [Ratio] 0.0 % /100 WBC [facility] Platelet mean volume (Bld) [Entitic vol] 10.2 fL 9.0 - 12.7 fL [facility] Platelets (Bld) [#/Vol] 292 10*3/uL [facility] RBC (Bld) [#/Vol] 5.19 10*6/uL 3.90 - 5.2 0 m/uL [facility] WBC (Bld) [#/Vol] 7.92 10*3/uL [facility] Basophils (Bld) [#/Vol] 0.08 10*3/uL Normal <0.11 [facility] Comment on above: Order Comment: Speci men Type: BLOOD SPECIMEN Ordering Facility: [facility] Address: [address] [place] [address] Performed By: #### 5 1775-5, 08672-0, 19409-0, 54457-1, 16758-9, 13725-4, 02674-5, 35715-5 #### [facility] CLIA [id number] [address] [place] [address] [place] Basophils/100 WBC (Bld) 1.0 % Normal [facility] Comment on above: Order Comment: Speci men Type: BLOOD SPECIMEN Ordering Facility: [facility] Address: [address] [place] [address] Performed By: #### 5 1775-5, 15823-5, 29861-3, 31661-0, 19675-4, 70097-0, 29264-7, 33484-9 #### [facility] CLIA [id number] [address] [place] [address] [place] Differential cell count method Nom (Bld) Auto Normal [facility] Comment on above: Order Comment: Speci men Type: BLOOD SPECIMEN Ordering Facility: [facility] Address: [address] [place] [address] Performed By: #### 5 5-5, 68159-3, 07228-0, 77114-3, 29291-8, 58671-8, 26290-5, 46979-8 #### [facility] CLIA [id number] [address] [place] [address] [place] Eosinophils (Bld) [#/Vol] 0.32 10*3/uL Normal <0.46 [facility] Comment on above: Order Comment: Speci men Type: BLOOD SPECIMEN Ordering Facility: [facility] Address: [address] [place] [address] Performed By: #### 5 5-5, 41260-7, 04311-5, 65516-8, 99220-7, 17832-0, 68805-3, 38575-5 #### [facility] CLIA [id number] [address] [place] [address] [place] Eosinophils/100 WBC (Bld) 4.0 % Normal [facility] Comment on above: Order Comment: Speci men Type: BLOOD SPECIMEN Ordering Facility: [facility] Address: [address] [place] [address] Performed By: #### 5 1775-5, 95936-5, 82340-0, 78487-9, 72712-2, 05250-8, 25152-4, 26041-1 #### [facility] CLIA [id number] [address] [place] [address] [place] Erythrocyte distribution width (RBC) [Ratio] 14.2 % Normal 11.5-15.0 [facility] Comment on above: Order Comment: Speci men Type: BLOOD SPECIMEN Ordering Facility: [facility] Address: [address] [place] [address] Performed By: #### 5 1775-5, 27801-6, 02161-1, 75179-3, 76147-9, 81715-0, 51811-9, 01405-0 #### [facility] CLIA [id number] [address] [place] [address] [place] Hematocrit (Bld) [Volume fraction] 40.8 % Normal 36.0-46.0 [facility] Comment on above: Order Comment: Speci men Type: BLOOD SPECIMEN Ordering Facility: [facility] Address: [address] [place] [address] Performed By: #### 5 1775-5, 42459-5, 66397-9, 45790-0, 24160-9, 12894-8, 23248-2, 57278-1 #### [facility] CLIA [id number] [address] [place] [address] [place] Hemoglobin (Bld) [Mass/Vol] 12.8 g/dL Normal 11.5-15.5 [facility] Comment on above: Order Comment: Speci men Type: BLOOD SPECIMEN Ordering Facility: [facility] Address: [address] [place] [address] Performed By: #### 5 1775-5, 07431-1, 12765-4, 62946-6, 80924-9, 84418-4, 13838-4, 43549-2 #### [facility] CLIA [id number] [address] [place] [address] [place] Immature granulocytes (Bld) [#/Vol] 0.06 10*3/uL Normal <0.10 [facility] Comment on above: Order Comment: Speci men Type: BLOOD SPECIMEN Ordering Facility: [facility] Address: [address] [place] [address] Performed By: #### 5 1775-5, 50858-4, 52862-5, 74125-8, 16825-1, 41113-5, 65590-8, 17804-0 #### [facility] CLIA [id number] [address] [place] [address] [place] Immature granulocytes/100 WBC (Bld) 0.8 % Normal [facility] Comment on above: Order Comment: Speci men Type: BLOOD SPECIMEN Ordering Facility: [facility] Address: [address] [place] [address] Performed By: #### 5 1775-5, 42335-0, 84236-4, 61652-4, 08563-3, 09361-1, 90972-1, 99311-3 #### [facility] CLIA [id number] [address] [place] [address] [place] Lymphocytes (Bld) [#/Vol] 1.99 10*3/uL Normal 1.00-4.00 [facility] Comment on above: Order Comment: Speci men Type: BLOOD SPECIMEN Ordering Facility: [facility] Address: [address] [place] [address] Performed By: #### 5 1775-5, 20623-8, 69940-6, 86808-4, 61388-0, 99236-5, 42882-6, 80202-9 #### [facility] CLIA [id number] [address] [place] [address] [place] Lymphocytes/100 WBC (Bld) 25.1 % Normal [facility] Comment on above: Order Comment: Speci men Type: BLOOD SPECIMEN Ordering Facility: [facility] Address: [address] [place] [address] Performed By: #### 5 1775-5, 07372-8, 38897-4, 14983-0, 58644-0, 75663-8, 32714-4, 68735-3 #### [facility] CLIA [id number] [address] [place] [address] [place] MCH (RBC) [Entitic mass] 24.7 pg Low 26.0-34.0 [facility] Comment on above: Order Comment: Speci men Type: BLOOD SPECIMEN Ordering Facility: [facility] Address: [address] [place] [address] Performed By: #### 5 5-5, 42987-4, 51030-2, 91690-1, 53390-8, 45016-7, 06716-2, 48872-8 #### [facility] CLIA [id number] [address] [place] [address] [place] MCHC (RBC) [Mass/Vol] 31.4 g/dL Normal 30.5-36.[address] [facility] Comment on above: Order Comment: Speci men Type: BLOOD SPECIMEN Ordering Facility: [facility] Address: [address] [place] [address] Performed By: #### 5 1774-5, 95687-8, 85466-2, 20818-5, 75907-6, 30201-0, 71963-5, 58959-6 #### [facility] CLIA [id number] [address] [place] [address] [place] MCV (RBC) [Entitic vol] 78.6 fL Low 80.0-100.0 [facility] Comment on above: Order Comment: Speci men Type: BLOOD SPECIMEN Ordering Facility: [facility] Address: [address] [place] [address] Performed By: #### 5 1775-5, 67576-4, 07718-4, 24033-2, 78479-3, 13421-5, 52751-5, 59096-8 #### [facility] CLIA [id number] [address] [place] [address] [place] Monocytes (Bld) [#/Vol] 0.54 10*3/uL Normal <0.87 [facility] Comment on above: Order Comment: Speci men Type: BLOOD SPECIMEN Ordering Facility: [facility] Address: [address] [place] [address] Performed By: #### 5 1775-5, 52306-9, 27633-0, 34739-1, 69855-7, 43143-4, 17835-0, 21502-6 #### [facility] CLIA [id number] [address] [place] [address] [place] Monocytes/100 WBC (Bld) 6.8 % Normal [facility] Comment on above: Order Comment: Speci men Type: BLOOD SPECIMEN Ordering Facility: [facility] Address: [address] [place] [address] Performed By: #### 5 5-5, 19483-6, 21865-3, 97105-6, 38803-1, 32685-1, 83061-6, 77249-0 #### [facility] CLIA [id number] [address] [place] [address] [place] Neutrophils (Bld) [#/Vol] 4.93 10*3/uL Normal 1.45-7.50 [facility] Comment on above: Order Comment: Speci men Type: BLOOD SPECIMEN Ordering Facility: [facility] Address: [address] [place] [address] Performed By: #### 5 1775-5, 12825-3, 93004-1, 54432-2, 10037-2, 32655-7, 06495-2, 77401-0 #### [facility] CLIA [id number] [address] [place] [address] [place] Neutrophils/100 WBC (Bld) 62.3 % Normal [facility] Comment on above: Order Comment: Speci men Type: BLOOD SPECIMEN Ordering Facility: [facility] Address: [address] [place] [address] Performed By: #### 5 5-5, 68292-2, 88495-2, 79920-7, 63296-2, 34697-8, 90564-0, 42003-3 #### [facility] CLIA [id number] [address] [place] [address] [place] Nucleated RBC (Bld) [#/Vol] 10*3/uL Normal <0.01 [facility] Comment on above: Order Comment: Speci men Type: BLOOD SPECIMEN Ordering Facility: [facility] Address: [address] [place] [address] Performed By: #### 5 5-5, 58923-5, 46315-6, 41221-6, 60111-9, 12168-7, 18569-7, 27651-6 #### [facility] CLIA [id number] [address] [place] [address] [place] Nucleated RBC/100 WBC (Bld) [Ratio] 0.0 /100 WBC Normal [facility] Comment on above: Order Comment: Speci men Type: BLOOD SPECIMEN Ordering Facility: [facility] Address: [address] [place] [address] Performed By: #### 5 5-5, 33171-0, 59388-1, 78220-2, 74875-4, 62530-1, 95423-1, 17313-8 #### [facility] CLIA [id number] [address] [place] [address] [place] Platelet mean volume (Bld) [Entitic vol] 10.2 fL Normal 9.0-12.7 [facility] Comment on above: Order Comment: Speci men Type: BLOOD SPECIMEN Ordering Facility: [facility] Address: [address] [place] [address] Performed By: #### 5 1775-5, 85959-3, 68651-7, 95031-7, 21536-4, 90219-4, 36075-0, 19866-0 #### [facility] CLIA [id number] [address] [place] [address] [place] Platelets (Bld) [#/Vol] 292 10*3/uL Normal 150-400 [facility] Comment on above: Order Comment: Speci men Type: BLOOD SPECIMEN Ordering Facility: [facility] Address: [address] [place] [address] Performed By: #### 5 1775-5, 60399-2, 23923-7, 78158-7, 28937-4, 96774-6, 08694-6, 62557-1 #### [facility] CLIA [id number] [address] [place] [address] [place] RBC (Bld) [#/Vol] 5.19 10*6/uL Normal 3.90-5.20 [facility] Comment on above: Order Comment: Speci men Type: BLOOD SPECIMEN Ordering Facility: [facility] Address: [address] [place] [address] Performed By: #### 5 1775-5, 52544-7, 54405-8, 68311-0, 34815-9, 22304-2, 28667-5, 73093-0 #### [facility] CLIA [id number] [address] [place] [address] [place] WBC (Bld) [#/Vol] 7.92 10*3/uL Normal 3.70-11.00 [facility] Comment on above: Order Comment: Speci men Type: BLOOD SPECIMEN Ordering Facility: [facility] Address: [address] [place] [address] Performed By: #### 5 1775-5, 93594-9, 08016-0, 39286-7, 86642-7, 53615-8, 38659-3, 89687-0 #### [facility] CLIA [id number] [address] [place] [address] [place] CNOVon 01-18-2024 CNOV Office Visit (RHEUMN ) ESSIE STEELE ([id number]) 1965 F Date Time Provider Department 01/18/24 10:00 AM RENNY BARON During your visit today, we recorded the following information about you: Temperature Pulse Blood pressure Weight 97.2 degrees 68/minute 153/100 109.2 kg Height 1.689 m Renny Baron MD 01/18/2024 6:39 PM Signed Rheumatology CONSULTATION Date of Service: 01/18/2024 Patient: Essie Velásquez Georgina Primary Care Physician: Kayy Paniagua ([place], [place]) Last Rheumatology visit: None at [facility] Referring Provider: Kristy Evangelista [address] [facility] [address] Essie Steele is here today at request of Dr. Evangelista specifically for consultation of my opinion in regards to the chief complaint listed below. Correspondence will be shared today via the [facility] electronic health record or through regular mail, [...] ) Review (more content not included)... Normal [facility] CRP SerPl-mCncon 01-18-2024 CRP [Mass/Vol] 0.7 mg/dL Normal <0.9 [facility] Comment on above: Order Comment: Fernando villalobos Type: BLOOD SPECIMEN Ordering Facility: [facility] Address: [address] [place] [address] Performed By: #### 5 1775-5, 85713-4, 19119-1, 77770-7, 84576-8, 88567-4, 92537-5, 42502-9 #### [facility] CLIA [id number] [address] [place], [place] [address] [address] [place] Centromere Ab IF Ql (S)on Centromere Ab Qn (S) <0.2 Normal <1.0 [facility] Comment on above: Order Comment: Fernando villalobos Type: BLOOD SPECIMEN Ordering Facility: [facility] Address: [address] [place] [address] Result Comment: Anti -centromere antibody is used as in aid in diagnosis of systemic sclerosis. Clinical correlation is required. Test Methodology: Multiplex flow immunoassay. Performed By: #### 5 1775-5, 68968-1, 71693-6, 54097-0, 20669-4, 92275-0, 57129-0, 62974-9 #### [facility] CLIA [id number] [address] [place] [address] [place] CENTROMERE AB QUAL Negative Normal Negative [facility] Comment on above: Order Comment: Speci men Type: BLOOD SPECIMEN Ordering Facility: [facility] Address: [address] [place] [address] Performed By: #### 5 1775-5, 85300-9, 51884-0, 09058-2, 62574-5, 87644-9, 06393-7, 31932-4 #### [facility] CLIA [id number] [address] [place] [address] [place] Chromatin Ab Qnon 01-18-2024 CHROMATIN AB QUAL Negative Normal Negative [facility] Comment on above: Order Comment: Speci men Type: BLOOD SPECIMEN Ordering Facility: [facility] Address: [address] [place] [address] Performed By: #### 5 1775-5, 20416-9, 91340-8, 04757-0, 78291-0, 20360-2, 59293-3, 10376-9 #### [facility] CLIA [id number] [address] [place] [address] [place] Chromatin Ab SerPl-aCncon Chromatin Ab Qn <0.2 Normal <1.0 [facility] Comment on above: Order Comment: Speci men Type: BLOOD SPECIMEN Ordering Facility: [facility] Address: [address] [place] [address] Result Comment: Test Methodology: Multiplex flow immunoassay. Performed By: #### 5 1775-5, 92026-0, 77024-3, 00588-3, 73163-9, 39762-3, 65617-8, 03357-4 #### [facility] CLIA [id number] [address] [place] [address] [place] Comprehensive metabolic 2000 panelon 01-18-2024 Albumin [Mass/Vol] 4.4 g/dL 3.9 - 4.9 g/dL [facility] ALP [Catalytic activity/Vol] 148 U/L High 34 - 123 U/L [facility] ALT [Catalytic activity/Vol] 20 U/L 7 - 38 U/L [facility] Anion gap [Moles/Vol] 12 mmol/L 8 - 15 mmol/L [facility] AST [Catalytic activity/Vol] 25 U/L 13 - 35 U/L [facility] Bilirubin [Mass/Vol] 0.4 mg/dL 0.2 - 1 .3 mg/dL [facility] Calcium [Mass/Vol] 9.2 mg/dL 8.5 - 10. 2 mg/dL [facility] Chloride [Moles/Vol] 102 mmol/L 98 - 10 7 mmol/L [facility] CO2 [Moles/Vol] 26 mmol/L 22 - 30 mmol/L [facility] Creatinine [Mass/Vol] 0.59 mg/dL 0.58 - 0.96 mg/dL [facility] GFR/1.73 sq M.predicted among non-blacks MDRD (S/P/Bld) [Vol rate/Area] 105 mL/min/{1.73_m2} - PINF [facility] Comment on above: Estimated Glomerular Filtration [...] [Mass/Vol] 91 mg/dL 74 - 99 mg/dL [facility] Comment on above: The [place] Diabete s Association (ADA) provides guidance for [...] Standards of Medical Care in Diabetes 2016, [place] Diabetes Association. Diabetes Care. 2016.39(Suppl 1). Interpretation and review of laboratory results Abnormal [facility] Potassium [Moles/Vol] 3.7 mmol/L 3.7 - 5.1 mmol/L [facility] Protein [Mass/Vol] 7.3 g/dL 6.3 - 8.0 g/dL [facility] Sodium [Moles/Vol] 140 mmol/L 136 - 144 mmol/L [facility] Urea nitrogen [Mass/Vol] 12 mg/dL 7 - 21 mg/dL [facility] Albumin [Mass/Vol] 4.4 g/dL Normal 3.9-4.9 [facility] Comment on above: Order Comment: Fernando villalobos Type: BLOOD SPECIMEN Ordering Facility: [facility] Address: [address] [place] [address] Performed By: #### 5 1775-5, 40226-2, 28438-7, 96361-3, 87599-5, 27933-1, 65240-9, 39608-9 #### [facility] CLIA [id number] [address] [place] [address] [place] ALP [Catalytic activity/Vol] 148 U/L High 34-123 [facility] Comment on above: Order Comment: Fernando villalobos Type: BLOOD SPECIMEN Ordering Facility: [facility] Address: [address] [place] [address] Performed By: #### 5 1775-5, 13258-2, 60179-4, 99923-5, 49785-9, 45624-8, 63159-3, 26432-6 #### [facility] CLIA [id number] [address] [place] [address] [place] ALT [Catalytic activity/Vol] 20 U/L Normal 7-38 [facility] Comment on above: Order Comment: Speci men Type: BLOOD SPECIMEN Ordering Facility: [facility] Address: [address] [place] [address] Performed By: #### 5 1775-5, 10690-5, 13856-3, 97690-4, 69012-0, 21578-9, 59686-7, 17296-0 #### [facility] CLIA [id number] [address] [place] [address] [place] Anion gap [Moles/Vol] 12 mmol/L Normal 8-[address] [facility] Comment on above: Order Comment: Speci men Type: BLOOD SPECIMEN Ordering Facility: [facility] Address: [address] [place] [address] Performed By: #### 5 1775-5, 71471-9, 47182-6, 96329-5, 79579-3, 35448-5, 97174-4, 90878-6 #### [facility] CLIA [id number] [address] [place] [address] [place] AST [Catalytic activity/Vol] 25 U/L Normal 13-35 [facility] Comment on above: Order Comment: Speci men Type: BLOOD SPECIMEN Ordering Facility: [facility] Address: [address] [place] [address] Performed By: #### 5 1775-5, 75604-5, 89356-4, 00319-5, 61385-4, 12169-6, 83059-5, 62198-8 #### [facility] CLIA [id number] [address] [place] [address] [place] Bilirubin [Mass/Vol] 0.4 mg/dL Normal 0.2-1.3 [facility] Comment on above: Order Comment: Speci men Type: BLOOD SPECIMEN Ordering Facility: [facility] Address: [address] [place] [address] Performed By: #### 5 1775-5, 88306-7, 98276-4, 39764-7, 44065-3, 89000-1, 65015-6, 31853-9 #### [facility] CLIA [id number] [address] [place] [address] [place] Calcium [Mass/Vol] 9.2 mg/dL Normal 8.5-10.2 [facility] Comment on above: Order Comment: Speci men Type: BLOOD SPECIMEN Ordering Facility: [facility] Address: [address] [place] [address] Performed By: #### 5 1775-5, 17584-1, 84826-7, 64456-0, 84412-6, 78004-6, 41340-6, 32016-6 #### [facility] CLIA [id number] [address] [place] [address] [place] Chloride [Moles/Vol] 102 mmol/L Normal 98-107 [facility] Comment on above: Order Comment: Speci men Type: BLOOD SPECIMEN Ordering Facility: [facility] Address: [address] [place] [address] Performed By: #### 5 1775-5, 78271-9, 50461-8, 58249-2, 61393-0, 79929-1, 24808-5, 60578-1 #### [facility] CLIA [id number] [address] [place] [address] [place] CO2 [Moles/Vol] 26 mmol/L Normal 22-30 [facility] Comment on above: Order Comment: Speci men Type: BLOOD SPECIMEN Ordering Facility: [facility] Address: [address] [place] [address] Performed By: #### 5 1775-5, 07285-5, 36461-0, 54130-3, 04929-3, 99631-3, 50904-7, 62616-7 #### [facility] CLIA [id number] [address] [place] [address] [place] Creatinine [Mass/Vol] 0.59 mg/dL Normal 0.58-0.[address] [facility] Comment on above: Order Comment: Fernando villalobos Type: BLOOD SPECIMEN Ordering Facility: [facility] Address: [address] [place] [address] Performed By: #### 5 1775-5, 66387-3, 26707-5, 50266-6, 34796-7, 03986-5, 94651-9, 54305-3 #### [facility] CLIA [id number] [address] [place] [address] [place] Creatinine and Glomerular filtration rate.predicted panel (S/P/Bld) 105 mL/min/1.73m??? Normal >=60 [facility] Comment on above: Order Comment: Fernando villalobos Type: BLOOD SPECIMEN Ordering Facility: [facility] Address: [address] [place] [address] Result Comment: Oanh mated Glomerular Filtration Rate [...] actual GFR. Performed By: #### 5 1775-5, 41549-1, 77973-7, 32356-5, 61538-3, 30925-9, 41735-5, 32100-3 #### [facility] CLIA [id number] [address] [place] [address] [place] Glucose [Mass/Vol] 91 mg/dL Normal 74-99 [facility] Comment on above: Order Comment: Fernando villalobos Type: BLOOD SPECIMEN Ordering Facility: [facility] Address: [address] [place] [address] Result Comment: The [place] Diabetes Association (ADA) provides guidance for cutoff [...] Standards of Medical Care in Diabetes 2016, [place] [employer]. Diabetes Care. 2016.39(Suppl 1). Performed By: #### 5 1775-5, 13575-0, 83065-3, 73782-8, 10310-8, 51817-9, 58953-8, 88535-2 #### [facility] CLIA [id number] [address] [place] [address] [place] Potassium [Moles/Vol] 3.7 mmol/L Normal 3.7-5.[address] [facility] Comment on above: Order Comment: Speci men Type: BLOOD SPECIMEN Ordering Facility: [facility] Address: [address] [place] [address] Performed By: #### 5 1775-5, 37432-7, 26083-6, 36717-5, 10538-5, 44977-7, 39586-9, 43021-4 #### [facility] CLIA [id number] [address] [place] [address] [place] Protein [Mass/Vol] 7.3 g/dL Normal 6.3-8.0 [facility] Comment on above: Order Comment: Sonyai men Type: BLOOD SPECIMEN Ordering Facility: [facility] Address: [address] [place] [address] Performed By: #### 5 1775-5, 48125-2, 80534-9, 01650-0, 75107-7, 07978-7, 23809-2, 18249-1 #### [facility] CLIA [id number] [address] [place] [address] [place] Sodium [Moles/Vol] 140 mmol/L Normal 136-144 [facility] Comment on above: Order Comment: Sonyai men Type: BLOOD SPECIMEN Ordering Facility: [facility] Address: [address] [place] [address] Performed By: #### 5 1775-5, 35334-7, 71459-3, 10472-8, 67703-1, 46593-2, 64257-4, 86387-1 #### [facility] CLIA [id number] [address] [place] [address] [place] Urea nitrogen [Mass/Vol] 12 mg/dL Normal 7-21 [facility] Comment on above: Order Comment: Speci men Type: BLOOD SPECIMEN Ordering Facility: [facility] Address: [address] [place] [address] Performed By: #### 5 1775-5, 33954-6, 68854-2, 04017-4, 21046-4, 30175-3, 78668-6, 08665-1 #### [facility] CLIA [id number] [address] [place] [address] [place] Cyclic citrullinated peptide IgG Qnon 01-18-2024 CCP ANTIBODY IGG QUALITATIVE Negative Normal Negative [facility] Comment on above: Order Comment: Speci men Type: BLOOD SPECIMEN Ordering Facility: [facility] Address: [address] [place] [address] Performed By: #### 5 1775-5, 06491-3, 57262-5, 68971-8, 12458-2, 27360-0, 35871-4, 56529-9 #### [facility] CLIA [id number] [address] [place] [address] [place] DNA double strand Ab IA Qn ( S)on 01-18-2024 DNA ANTIBODY 29 IU/mL Normal <=200 [facility] Comment on above: Order Comment: Speci men Type: BLOOD SPECIMEN Ordering Facility: [facility] Address: [address] [place] [address] Result Comment: Nega tive: <200 IU/mL Equivocal: 201-300 IU/mL Moderate Positive: 301-800 IU/mL Strong Positive: >801 IU/mL Performed By: #### 5 1775-5, 11265-7, 30513-7, 77139-4, 98538-2, 78905-0, 27008-6, 39614-2 #### [facility] CLIA [id number] [address] [place] [address] [place] DNA ANTIBODY QUALITATIVE INTERPRETATION Negative Normal Negative [facility] Comment on above: Order Comment: Speci men Type: BLOOD SPECIMEN Ordering Facility: [facility] Address: [address] [place] [address] Performed By: #### 5 1775-5, 65053-3, 06489-5, 15939-5, 04787-5, 17448-1, 78141-3, 72859-9 #### [facility] CLIA [id number] [address] [place] [address] [place] DXA Skeletal system.axial Vi ews for bone densityOrdered By: Ccf Provider on 01-18-2024 LOWEST T-SCORE -0.1 [facility] DXA Skeletal system.axial Vi ews for [...] FOR MORE INFORMATION ABOUT DIAGNOSIS AND TREATMENT: [facility] for Osteoporosis and Metabolic Bone Disease:? www.ccf.org/arthritis /osteo National Osteoporosis Foundation:? www.nof.org International Society of Clinical Densitometry www.iscd.org Supervisor [place]: 248[address] Transcribe Date/Time: Jan 18 2024 9:10A Dictated by : ALEC ARCE MD This examination was interpreted and the report reviewed and electronically signed by: ALEC ARCE MD on Jan 18 2024 9:59PM [facility] DIVISION OF RADIOLOGY * * *Final Report* * * DATE OF EXAM: Jan 18 2024 9:08AM [facility] [place] BD DXA - AXIAL SKELETON / PROCEDURE REASON: Symptomatic menopausal or female climacteric states * * * * Physician Interpretation * * * * EXAMINATION: DXA BONE DENSITOMETRY BD DXA - AXIAL SKELETON PATIENT DEMOGRAPHICS: Age: 59 years, Gender: Female SCANNER INFORMATION: DXA Model: [employer] (S/N: [id number]) Date Scanned: 01/18/2024 9:08 AM CLINICAL HISTORY: [...] had a previous bone density in the [facility] or the previous bone density was performed on a different DXA machine (new, updated model or different location) within the [facility]. VERTEBRAL FRACTURE ASSESSMENT Not performed. TRABECULAR BONE ASSESSMENT TBS not performed: BMI outside recommended range for calculation of TBS. DIVISION OF RADIOLOGY Provider, [facility] - 01/18/2024 * * *Final Report* * * DATE OF EXAM: Jan 18 2024 9:08AM [facility] [place] - BD DXA - AXIAL SKELETON / PROCEDURE REASON: Symptomatic menopausal or female climacteric states * * * * Physician Interpretation * * * * EXAMINATION: DXA BONE DENSITOMETRY BD DXA - AXIAL SKELETON PATIENT DEMOGRAPHICS: Age: 59 years, Gender: Female SCANNER INFORMATION: DXA Model: A21 [employer] (S/N: [id number]) Date Scanned: 01/18/2024 9:08 AM CLINICAL HISTORY: [...] had a previous bone density in the [facility] or the previous bone density was performed on a different DXA machine (new, updated model or different location) within the [facility]. VERTEBRAL FRACTURE ASSESSMENT Not performed. TRABECULAR BONE [...] FOR MORE INFORMATION ABOUT DIAGNOSIS AND TREATMENT: [facility] for Osteoporosis and Metabolic Bone Disease:? www.ccf.org/arthritis /osteo National Osteoporosis Foundation:? www.nof.org International Society of Clinical Densitometry www.iscd.org Supervisor [place]: 375309 Transcribe Date/Time: Jan 18 2024 9:10A Dictated by : ALEC ARCE MD This examination was interpreted and the report reviewed and electronically signed by: ALEC ARCE MD on Jan 18 2024 9:59PM EST [facility] Radiology Study observation (narrative) [facility] GAYATRI Jo1 Ab Ser-aCncon 2023 Cyndi-1 extractable nuclear Ab Qn (S) <0.2 Normal <1.0 [facility] Comment on above: Order Comment: Speci men Type: BLOOD SPECIMEN Ordering Facility: [facility] Address: [address] [place] [address] Performed By: #### 5 1775-5, 22217-5, 71392-9, 32212-0, 75899-8, 34313-8, 41635-4, 88321-1 #### [facility] CLIA [id number] [address] [place] [address] [place] GAYATRI SCIENCE TECHNICIAN Ab Ser-aCncon 2023 Ribonucleoprotein extractable nuclear Ab Qn (S) <0.2 Normal <1.0 [facility] Comment on above: Order Comment: Speci men Type: BLOOD SPECIMEN Ordering Facility: [facility] Address: [address] [place] [address] Performed By: #### 5 5-5, 13518-1, 06279-2, 62361-2, 85442-1, 65806-4, 62653-7, 73882-5 #### [facility] CLIA [id number] [address] [place] [address] [place] GAYATRI SM IgG Ser-aCncon 2023 [place] extractable nuclear IgG Qn (S) <0.2 Normal <1.0 [facility] Comment on above: Order Comment: Speci men Type: BLOOD SPECIMEN Ordering Facility: [facility] Address: [address] [place] [address] Performed By: #### 5 1775-5, 38768-7, 16709-3, 46034-9, 82268-9, 18724-6, 93497-2, 75779-9 #### [facility] CLIA [id number] [address] [place] [address] [place] GAYATRI SS-A Ab Ser-aCncon 01-17 Sjogrens syndrome-A extractable nuclear Ab Qn (S) <0.2 Normal <1.0 [facility] Comment on above: Order Comment: Speci men Type: BLOOD SPECIMEN Ordering Facility: [facility] Address: [address] [place] [address] Result Comment: Test Methodology: Multiplex flow immunoassay. Performed By: #### 5 1775-5, 73482-8, 67456-3, 53423-7, 02637-9, 19757-5, 64898-9, 13936-4 #### [facility] CLIA [id number] [address] [place] [address] [place] GAYATRI SS-B Ab Ser-aCncon 01-17 Sjogrens syndrome-B extractable nuclear Ab Qn (S) <0.2 Normal <1.0 [facility] Comment on above: Order Comment: Sonyai wilfredo Type: BLOOD SPECIMEN Ordering Facility: [facility] Address: [address] [place] [address] Result Comment: Anti -SSB (anti-La) antibody is used as an aid in diagnosis of a variety of systemic autoimmune diseases, especially for Sjogren's syndrome and systemic lupus erythematosus. Clinical correlation is required. Test Methodology: Multiplex flow immunoassay. Performed By: #### 5 1775-5, 33827-3, 91687-3, 45155-2, 32387-3, 34779-1, 30394-1, 18456-1 #### [facility] CLIA [id number] [address] [place] [address] [place] ESR Westergren method (Bld) [Velocity]on 01-18-2024 ESR (Bld) [Velocity] 12 mm/h [facility] Interpretation and review of laboratory results Normal [facility] ESR (Bld) [Velocity] 12 mm/h Normal 0-20 [facility] Comment on above: Order Comment: Speci men Type: BLOOD SPECIMEN Ordering Facility: [facility] Address: [address] [place] [address] Performed By: #### 5 1775-5, 35829-6, 77214-4, 08102-9, 61421-8, 12066-1, 05188-0, 10318-1 #### [facility] CLIA [id number] [address] [place] [address] [place] HBV core Ab Ser Qlon 024 HBV core Ab Ql (S) Negative Normal Negative [facility] Comment on above: Order Comment: Fernando villalobos Type: BLOOD SPECIMEN Ordering Facility: [facility] Address: [address] [place] [address] Result Comment: No e vidence of current or past infection with Hepatitis B virus. Should recent infection be suspected, repeat testing may be considered 3-4 weeks after this draw. Performed By: #### 5 5-5, 28636-3, 69674-5, 49234-0, 61155-3, 91268-1, 83329-5, 34404-8 #### [facility] CLIA [id number] [address] [place] [address] [place] HBV surface Ab Ql (S)on 12-25 HBV surface Ab Qn (S) 120.75 mIU/mL Normal [facility] Comment on above: Order Comment: Fernando villalobos Type: BLOOD SPECIMEN Ordering Facility: [facility] Address: [address] [place] [address] Result Comment: <8 m IU/mL: No serological evidence of immunity to Hepatitis B Virus. >/= 8 to <12 mIU/mL: No serological evidence of immunity to Hepatitis B Virus. >/= 12 mIU/mL: Consistent with serological evidence of immunity to Hepatitis B Virus. Performed By: #### 5 1775-5, 18658-6, 75885-7, 16082-6, 14969-0, 52309-1, 96491-2, 27714-5 #### [facility] CLIA [id number] [address] [place] [address] [place] HBV surface Ab Ser Qlon 12-25 HBV surface Ab Ql (S) Positive Normal [facility] Comment on above: Order Comment: Speci men Type: BLOOD SPECIMEN Ordering Facility: [facility] Address: [address] [place] [address] Result Comment: Cons istent with serological evidence of immunity to Hepatitis B Virus. Performed By: #### 5 1775-5, 77095-3, 64288-6, 66105-4, 24558-6, 87140-0, 34406-6, 64496-0 #### [facility] CLIA [id number] [address] [place] [address] [place] HBV surface Ag Ser Qlon 12-25 HBV surface Ag Ql (S) Negative Normal Negative [facility] Comment on above: Order Comment: Speci men Type: BLOOD SPECIMEN [facility] [facility] Address: [address] [place] [address] Performed By: #### 5 1775-5, 31142-1, 86334-3, 07550-6, 42305-9, 25057-4, 82312-5, 31088-2 #### [facility] CLIA [id number] [address] [place] [address] [place] HCV Ab Ser Qlon 01-18-2024 HCV Ab Ql (S) Negative Normal Negative [facility] Comment on above: Order Comment: [facility] Type: BLOOD SPECIMEN Ordering Facility: [facility] Address: [address] [place] [address] Result Comment: The result suggests no evidence of active infection with Hepatitis C virus. Should recent infection be suspected, repeat testing may be considered 4-6 weeks after this draw. Performed By: #### 5 1775-5, 09295-5, 45538-9, 37951-2, 94723-6, 63528-6, 28922-4, 63247-3 #### [facility] CLIA [id number] [address] [place] [address] [place] Cyndi-1 extractable nuclear Ab Qn (S)on 01-18-2024 CYNDI 1 ANTIBODY QUAL Negative Normal Negative [facility] Comment on above: Order Comment: Speci men Type: BLOOD SPECIMEN Ordering Facility: [facility] Address: [address] [place] [address] Result Comment: Anti -CYNDI-1 antibody is used as an aid in diagnosis of polymyositis and dermatomyositis especially with pulmonary involvement. A negative result cannot rule out polymyositis or dermatomyositis. Clinical correlation is required. Test Methodology: Multiplex flow immunoassay. Performed By: #### 5 1775-5, 69738-2, 93343-2, 14158-1, 21945-2, 82782-8, 87871-1, 10429-9 #### [facility] CLIA [id number] [address] [place] [address] [place] No Panel Informationon 01-17 Interpretation and review of laboratory results Normal [facility] RHEUMATOID FACTORon 01-18-20 24 Rheumatoid factor Qn 12 [IU]/mL NINF [facility] Rheumatoid fact SerPl-aCncon 01-18-2024 Rheumatoid factor Qn 12 [IU]/mL Normal <16 [facility] Comment on above: Order Comment: Speci men Type: BLOOD SPECIMEN Ordering Facility: [facility] Address: [address] [place] [address] Performed By: #### 5 1775-5, 01095-5, 32065-2, 81275-5, 59402-0, 76029-7, 70784-6, 65016-5 #### [facility] CLIA [id number] [address] [place] [address] [place] Rheumatoid factor Qnon 01-17 Interpretation and review of laboratory results Normal [facility] Ribonucleoprotein extractabl e nuclear Ab Qn (S)on 01-18-2024 ANTI-SCIENCE TECHNICIAN QUAL Negative Normal Negative [facility] Comment on above: Order Comment: Speci men Type: BLOOD SPECIMEN Ordering Facility: [facility] Address: [address] [place] [address] Performed By: #### 5 1775-5, 35383-5, 63740-3, 27440-4, 56434-1, 00613-9, 08689-2, 87901-3 #### [facility] CLIA [id number] [address] [place] [address] [place] RIBOSOMAL SCIENCE TECHNICIAN QUAL Negative Normal Negative [facility] Comment on above: Order Comment: Fernando villalobos Type: BLOOD SPECIMEN Ordering Facility: [facility] Address: [address] [place] [address] Result Comment: Anti -Ribosomal RNA (Ribosomal P) antibody is used as an aid in diagnosis of systemic autoimmune diseases especially systemic lupus erythematosus and mixed connective tissue disease. Cross-reactivity with Anti-faulkner antibody is not uncommon. Clinical correlation is required. Test Methodology: Multiplex flow immunoassay. Performed By: #### 5 1775-5, 01163-2, 93506-3, 44683-2, 60488-0, 89983-5, 73552-9, 78497-6 #### [facility] CLIA [id number] [address] [place] [address] [place] SCL-70 extractable nuclear I gG IA Qn (S)on 01-18-2024 SCLERODERMA AB QUAL Negative Normal Negative [facility] Comment on above: Order Comment: Fernando villalobos Type: BLOOD SPECIMEN Ordering Facility: [facility] Address: [address] [place] [address] Performed By: #### 5 1775-5, 63851-2, 90951-4, 24154-2, 05440-4, 71451-6, 41739-8, 03600-8 #### [facility] CLIA [id number] [address] [place] [address] [place] SCLERODERMA IGG AB <0.2 Normal <1.0 [facility] Comment on above: Order Comment: Fernando villalobos Type: BLOOD SPECIMEN Ordering Facility: [facility] Address: [address] [place] [address] Result Comment: Scl- 70/Scleroderma antibody test is used as an aid in diagnosis of systemic sclerosis especially the diffuse cutaneous form. A negative result cannot rule out systemic sclerosis. The final interpretation should consider clinical picture and other test results such as anti-centromere antibody. Test Methodology: Multiplex flow immunoassay. Performed By: #### 5 1775-5, 44422-1, 25604-5, 90983-6, 12281-3, 53657-1, 56262-2, 47140-7 #### [facility] CLIA [id number] [address] [place] [address] [place] Sjogrens syndrome-A extracta ble nuclear Ab Qn (S)on 01-18-2024 SSA ANTIBODY QUAL Negative Normal Negative [facility] Comment on above: Order Comment: Speci men Type: BLOOD SPECIMEN Ordering Facility: [facility] Address: [address] [place] [address] Performed By: #### 5 1775-5, 18352-6, 94672-9, 00018-5, 83563-7, 05271-1, 33060-0, 40715-4 #### [facility] CLIA [id number] [address] [place] [address] [place] Sjogrens syndrome-B extracta ble nuclear Ab Qn (S)on 01-18-2024 SSB ANTIBODY QUAL Negative Normal Negative [facility] Comment on above: Order Comment: Speci men Type: BLOOD SPECIMEN Ordering Facility: [facility] Address: [address] [place] [address] Performed By: #### 5 1775-5, 53610-6, 86478-5, 05518-9, 54354-3, 00285-7, 75865-0, 20422-9 #### [facility] CLIA [id number] [address] [place], [place] [address] [place] Faulkner extractable nuclear Ig G Qn (S)on 01-18-2024 SM ANTIBODY QUAL Negative Normal Negative [facility] Comment on above: Order Comment: Speci men Type: BLOOD SPECIMEN Ordering Facility: [facility] Address: [address] [place] [address] Result Comment: Anti -Sm (Faulkner) antibody is used as an aid in diagnosis of systemic lupus erythematosus and its presence is associated with renal disease. A negative result cannot rule out systemic lupus erythematosus. Clinical correlation is required. Test Methodology: Multiplex flow immunoassay. Performed By: #### 5 1775-5, 97913-6, 58126-9, 78789-0, 21494-2, 83172-9, 53495-5, 14689-8 #### [facility] CLIA [id number] [address] [place], [place] [address] [address] [place] Urinalysis complete panel (U )on 01-18-2024 Bacteria uL 1237.4 uL High Negative [facility] Bilirubin Ql (U) Negative Negative [facility] Clarity (Unsp spec) Clear Clear [facility] Color (U) Yellow Yellow [facility] Epithelial cells LM.HPF (Urine sed) [#/Area] Moderate /HPF [facility] Glucose Test strip (U) [Mass/Vol] Negative Negative [facility] Hemoglobin Ql (U) Negative Negative [facility] Hyaline casts (Urine sed) [#/Area] 0 /[LPF] 0 /LPF [facility] Interpretation and review of laboratory results Abnormal [facility] Ketones Ql (U) Negative Negative [facility] Leukocyte esterase Test strip Ql (U) Negative Negative [facility] Nitrite Ql (U) Negative Negative [facility] pH (U) 6.5 [pH] NINF - 8.5 [facility] Protein (U) [Mass/Vol] Trace Abnormal Negative [facility] RBC LM.HPF (Urine sed) [#/Area] 0-2 /HPF 0-2 /HPF [facility] Specific gravity (U) [Rel density] 1.019 1.005 - 1.030 [facility] Urobilinogen Ql (U) 0.2 EU/dL 0.2-1.0 EU/dL [facility] WBC LM.HPF (Urine sed) [#/Area] 0-5 /HPF 0-5 /HPF [facility] This test was developed and its performance characteristics determined by [facility]'s Malick [facility] [place] ([facility]). It has not been cleared or approved by the FDA. -[facility] is regulated under CLIA as qualified to perform high-complexity testing. This test is used for clinical purposes. It should not be regarded as investigational or for research. [facility] BACTERIA UL 1237.4 uL High Negative [facility] Comment on above: Order Comment: Speci men Type: BLOOD SPECIMEN Ordering Facility: [facility] Address: [address] [place] [address] Performed By: #### 5 1775-5, 73617-9, 71489-2, 94960-8, 35385-5, 07233-3, 42447-1, 33492-6 #### [facility] CLIA [id number] [address] [place] [address] [place] Bilirubin Ql (U) Negative Normal Negative [facility] Comment on above: Order Comment: Speci men Type: BLOOD SPECIMEN Ordering Facility: [facility] Address: [address] [place] [address] Performed By: #### 5 1775-5, 38471-8, 00494-1, 57272-4, 87644-0, 16839-4, 67060-3, 02797-3 #### [facility] CLIA [id number] [address] [place] [address] [place] Clarity (Unsp spec) Clear Normal Clear [facility] Comment on above: Order Comment: Speci men Type: BLOOD SPECIMEN Ordering Facility: [facility] Address: [address] [place] [address] Performed By: #### 5 1775-5, 81641-3, 40269-1, 13331-8, 72462-5, 85597-7, 50292-7, 23093-1 #### [facility] CLIA [id number] [address] [place] [address] [place] Color (U) Yellow Normal Yellow [facility] Comment on above: Order Comment: Speci men Type: BLOOD SPECIMEN Ordering Facility: [facility] Address: [address] [place] [address] Performed By: #### 5 1775-5, 77888-1, 96218-3, 55456-6, 50065-9, 59261-8, 69867-9, 05769-9 #### [facility] CLIA [id number] [address] [place] [address] [place] Epithelial cells LM.HPF (Urine sed) [#/Area] Moderate Normal [facility] Comment on above: Order Comment: Speci men Type: BLOOD SPECIMEN Ordering Facility: [facility] Address: [address] [place] [address] Performed By: #### 5 1775-5, 99786-4, 79204-2, 72426-1, 09934-9, 90561-4, 65858-5, 66793-9 #### [facility] CLIA [id number] [address] [place] [address] [place] Glucose Test strip (U) [Mass/Vol] Negative Normal Negative [facility] Comment on above: Order Comment: Speci men Type: BLOOD SPECIMEN Ordering Facility: [facility] Address: [address] [place] [address] Performed By: #### 5 1775-5, 55748-4, 20133-5, 59877-8, 90560-5, 03044-1, 75509-0, 04319-3 #### [facility] CLIA [id number] [address] [place] [address] [place] Hemoglobin Ql (U) Negative Normal Negative [facility] Comment on above: Order Comment: Speci men Type: BLOOD SPECIMEN Ordering Facility: [facility] Address: [address] [place] [address] Performed By: #### 5 1775-5, 48189-1, 77613-7, 01006-4, 76189-7, 25743-2, 96130-6, 21147-3 #### [facility] CLIA [id number] [address] [place] [address] [place] Hyaline casts (Urine sed) [#/Area] 0 /[LPF] Normal 0 /LPF [facility] Comment on above: Order Comment: Speci men Type: BLOOD SPECIMEN Ordering Facility: [facility] Address: [address] [place] [address] Performed By: #### 5 1775-5, 05158-8, 38958-8, 81985-6, 08334-8, 39855-2, 01669-9, 52227-4 #### [facility] CLIA [id number] [address] [place] [address] [place] Ketones Ql (U) Negative Normal Negative [facility] Comment on above: Order Comment: Speci men Type: BLOOD SPECIMEN Ordering Facility: [facility] Address: [address] [place] [address] Performed By: #### 5 1775-5, 25551-3, 34854-1, 33190-8, 27042-9, 71993-8, 15548-9, 16319-8 #### [facility] CLIA [id number] [address] [place] [address] [place] Leukocyte esterase Test strip Ql (U) Negative Normal Negative [facility] Comment on above: Order Comment: Speci men Type: BLOOD SPECIMEN Ordering Facility: [facility] Address: [address] [place] [address] Performed By: #### 5 1775-5, 41464-5, 76892-8, 21679-8, 96148-7, 86583-2, 28343-7, 83864-2 #### [facility] CLIA [id number] [address] [place] [address] [place] Nitrite Ql (U) Negative Normal Negative [facility] Comment on above: Order Comment: Speci men Type: BLOOD SPECIMEN Ordering Facility: [facility] Address: [address] [place] [address] Performed By: #### 5 1775-5, 76356-2, 03367-7, 35569-7, 07071-7, 60631-8, 49952-9, 95199-9 #### [facility] CLIA [id number] [address] [place] [address] [place] pH (U) 6.5 [pH] Normal <8.5 [facility] Comment on above: Order Comment: Speci men Type: BLOOD SPECIMEN Ordering Facility: [facility] Address: [address] [place] [address] Performed By: #### 5 1775-5, 99549-3, 85955-1, 95738-7, 86909-9, 24458-0, 91800-8, 26769-3 #### [facility] CLIA [id number] [address] [place] [address] [place] Protein (U) [Mass/Vol] Trace Abnormal Negative [facility] Comment on above: Order Comment: Speci men Type: BLOOD SPECIMEN Ordering Facility: [facility] Address: [address] [place] [address] Performed By: #### 5 1775-5, 85533-0, 95177-9, 23247-5, 03192-8, 50398-5, 55541-7, 54985-7 #### [facility] CLIA [id number] [address] [place] [address] [place] RBC LM.HPF (Urine sed) [#/Area] 0-2 /HPF Normal 0-2 /HPF [facility] Comment on above: Order Comment: Speci men Type: BLOOD SPECIMEN Ordering Facility: [facility] Address: [address] [place] [address] Performed By: #### 5 1775-5, 76775-7, 84590-5, 36902-8, 04738-3, 59604-0, 72086-2, 06880-6 #### [facility] CLIA [id number] [address] [place] [address] [place] Specific gravity (U) [Rel density] 1.019 Normal 1.005-1.030 [facility] Comment on above: Order Comment: Speci men Type: BLOOD SPECIMEN Ordering Facility: [facility] Address: [address] [place] [address] Performed By: #### 5 1775-5, 51347-5, 70806-4, 56993-6, 38822-5, 05517-6, 11334-9, 66890-2 #### [facility] CLIA [id number] [address] [place] [address] [place] Urobilinogen Ql (U) 0.2 EU/dL Normal 0.2-1.0 EU/dL [facility] Comment on above: Order Comment: Speci men Type: BLOOD SPECIMEN Ordering Facility: [facility] Address: [address] [place] [address] Performed By: #### 5 1775-5, 75723-9, 92208-0, 34265-1, 84697-3, 55831-8, 00637-3, 85324-9 #### [facility] CLIA [id number] [address] [place] [address] [place] WBC LM.HPF (Urine sed) [#/Area] 0-5 /HPF Normal 0-5 /HPF [facility] Comment on above: Order Comment: Speci men Type: BLOOD SPECIMEN Ordering Facility: [facility] Address: [address] [place] [address] Performed By: #### 5 1775-5, 09418-8, 58733-6, 78287-2, 55839-2, 55622-9, 41589-4, 32587-6 #### [facility] CLIA [id number] [address] [place] [address] [place] cCP IgG SerPl-aCncon 11-25-2 024 Cyclic citrullinated peptide IgG Qn <15 Normal <20 [facility] Comment on above: Order Comment: Speci men Type: BLOOD SPECIMEN Ordering Facility: [facility] Address: [address] [place] [address] Performed By: #### 5 1775-5, 92860-8, 82745-0, 88999-4, 80486-1, 59748-4, 03150-1, 06523-9 #### [facility] CLIA [id number] [address] [place] [id number] [facility] Office Visiton 12-02-2023 Follow-up visit [id number] Essie Steele 1965 F Date Provider Department Center 12/02/2023 Sami-SUSANNE PAZ CARD [facility] Family History Problem Relation Age of Onset Heart attack Mother's Brother Hypertension Maternal Grandmother Family Status - Relation Status Age at Mother's Brother Maternal Grandmother Level of Service:77376 MD OFFICE/OUTPATIENT ESTABLISHED LOW MDM 20 MIN Reason for Visit and Comments: Atrial Fibrillation [80] Normal [facility] CNOVon 11-23-2023 CNOV Office Visit (WCTRMN ) ESSIE STEELE ([id number]) 1965 F Date Time Provider Department 11/23/23 [...] lost both of her sisters spends time faith work grandkids and books on tape dogs [...] thinks lining was too thick TAH[facility] at [facility] had an TVUS and revealed [...] prior Bx. Last mammo 4-6 wks at [facility]. BONE: Denies FMH OP/fx. No PMH OP/non [...] first a (more content not included)... Normal [facility] Orders Onlyon 11-20-2023 Orders Only [id number] GeorginaEssie Velásquez 1965 F Provider Department Center 11/20/2023 [id number], HISTORICAL ASHWIN Tesfayearebrenda Patel Family History Problem Relation Age of Onset Heart attack Mother's Brother Hypertension Maternal Grandmother Family Status - Relation Status Age at Mother's Brother Maternal Grandmother Normal [facility] Orders Onlyon 11-17-2023 Orders Only [id number] Essie Steele 1965 Provider Department Center 11/17/2023 [id number], HISTORICAL [facility] CARD Anne Gallego Family History Problem Relation Age of Onset Heart attack Mother's Brother Hypertension Maternal Grandmother Family Status - Relation Status Age at Mother's Brother Maternal Grandmother Normal [facility] Office Visiton 05-26-2023 Follow-up visit [id number] Essie Steele 1965 Provider Department Center 05/26/2023 KRISHAN POWELL ASHWIN Melendez Family History Problem Relation Age of Onset Heart attack Mother's Brother Hypertension Maternal Grandmother Family Status - Relation Status Age at Mother's Brother Maternal Grandmother Level of Service:71080 MD OFFICE/OUTPATIENT NEW MODERATE MDM 45 MINUTES Reason for Visit and Comments: Follow-up [[id number]] - Go over echo and stress test results Normal [facility] 36on 04-30-2023 36 Per SG Naqvi regarding recent stress test: Normal stress test. Follow up as planned. She is scheduled to see Dr. Ramirez 05/26/2023. Patient made aware of stress test result. Normal [facility] Office Visiton 03-30-2023 Follow-up visit [id number] Essie Steele 1965 Provider Department Center 03/30/2023 LOU GARCIA Family History Problem Relation Age of Onset Heart attack Mother's Brother Hypertension Maternal Grandmother Family Status - Relation Status Age at Mother's Brother Maternal Grandmother Level of Service:26141 MD OFFICE/OUTPATIENT ESTABLISHED MOD MDM 30 MIN Normal [facility] INSULINon 06-13-2022 Insulin 8.5 uIU/mL Normal 2.6-24.9 [facility] Comment on above: Performed By: #### I NSULIN #### [facility] [address] [place] [address] Dr. Delonte Sparrow AMMONIAon 06-12-2022 Ammonia (P) [Moles/Vol] 33 umol/L Critically high 11-32 [facility] Comment on above: Performed By: #### A MM #### [facility] [address] [place] [address] Dr. Delonte Sparrow AMYLASEon 06-12-2022 Amylase [Catalytic activity/Vol] 47 U/L Normal 25-115 [facility] Comment on above: Performed By: #### L IPA, CMP, NONI #### [facility] [address] [place] [address] Dr. Delonte Sparrow CBC AUTO DIFFon 06-12-2022 BASO # 0.0 103/ul Normal 0.0-0.1 [facility] Comment on above: Performed By: #### C BC #### [facility] [address] [place] [address] Dr. Delonte Sparrow Basophils/100 WBC (Bld) 0.7 % Normal 0.2-2.0 [facility] Comment on above: Performed By: #### C BC #### [facility] [address] [place] [address] Dr. Delonte Sparrow EO # 0.3 103/ul Normal 0.0-0.7 [facility] Comment on above: Performed By: #### C BC #### [facility] [address] [place] [address] Dr. Delonte Sparrow Eosinophils/100 WBC (Bld) 4.3 % Normal 0.9-7.0 [facility] Comment on above: Performed By: #### C BC #### [facility] [address] [place] [address] Dr. Delonte Sparrow Erythrocyte distribution width (RBC) [Ratio] 15.0 % Normal 11.0-15.0 [facility] Comment on above: Performed By: #### C BC #### [facility] [address] [place] [address] Dr. Delonte Sparrow Hematocrit (Bld) [Volume fraction] 38.8 % Normal 36.0-48.0 [facility] Comment on above: Performed By: #### C BC #### [facility] [address] [place] [address] Dr. Delonte Sparrow Hemoglobin (Bld) [Mass/Vol] 12.0 g/dL Normal 12.0-16.0 [facility] Comment on above: Performed By: #### C BC #### [facility] [address] [place] [address] Dr. Delonte Sparrow IG # 0.03 10e3/ul Normal 0.00-0.03 [facility] Comment on above: Performed By: #### C BC #### [facility] [address] [place] [address] Dr. Delonte Sparrow IG % 0.5 % Normal 0.0-0.5 [facility] Comment on above: Performed By: #### C BC #### [facility] [address] [place] [address] Dr. Delonte Sparrow LYMPH # 1.7 103/ul Normal 1.2-3.8 [facility] Comment on above: Performed By: #### C BC #### [facility] [address] [place] [address] Dr. Delonte Sparrow Lymphocytes/100 WBC (Bld) 27.3 % Normal 20.5-60.0 [facility] Comment on above: Performed By: #### C BC #### [facility] [address] [place] [address] Dr. Delonte Sparrow MANUAL DIFF REQ NO Normal [facility] Comment on above: Performed By: #### C BC #### [facility] [address] [place] [address] Dr. Delonte Sparrow MCH (RBC) [Entitic mass] 24.1 pg Critically low 26.7-34.0 [facility] Comment on above: Performed By: #### C BC #### [facility] [address] [address] [address] Delonte Sparrow MCHC (RBC) [Mass/Vol] 30.9 g/dL Normal 29.9-35.2 [facility] Comment on above: Performed By: #### C BC #### [facility] [address] [address] [address] Delonte Sparrow MCV (RBC) [Entitic vol] 78.1 fL Critically low 81.0-99.0 [facility] [facility] Comment on above: Performed By: #### C BC #### [facility] [address] [place] [address] Dr. Delonte Sparrow MONO # 0.4 103/ul Normal 0.3-0.8 [facility] Comment on above: Performed By: #### C BC #### [facility] [address] [place] [address] Dr. Delonte Sparrow Monocytes/100 WBC (Bld) 6.4 % Normal 1.7-12.0 [facility] Comment on above: Performed By: #### C BC #### [facility] [address] [place] [address] Dr. Delonte Sparrow NEUT # 3.7 103/ul Normal 1.4-6.5 [facility] Comment on above: Performed By: #### C BC #### [facility] [address] [place] [address] Dr. Delonte Sparrow Neutrophils/100 WBC (Bld) 60.8 % Normal 43.0-75.0 [facility] Comment on above: Performed By: #### C BC #### [facility] [address] [address] [address] Delonte Sparrow Platelet mean volume (Bld) [Entitic vol] 9.7 fL Normal 9.5-13.5 [facility] Comment on above: Performed By: #### C BC #### [facility] [address] [address] [address] Delonte Sparrow PLT 263 103/ul Normal 150-450 [facility] Comment on above: Performed By: #### C BC #### [facility] [address] [address] [address] Delonte Sparrow RBC 4.97 106/ul Normal 4.20-5.40 [facility] Comment on above: Performed By: #### C BC #### [facility] [address] [address] [address] Delonte Sparrow WBC 6.1 103/ul Normal 4.0-11.0 [facility] Comment on above: Performed By: #### C BC #### [facility] [address] [address] [address] Delonte Sparrow FREE THYROXINE INDEX T7on FTI 2.61 Normal 1.30-4.50 [facility] Comment on above: Performed By: #### L IPA, CMP, NONI #### [facility] [address] [place] [address] Dr. Delonte Sparrow T3U 33.0 % Normal 30.0-39.0 [facility] Comment on above: Performed By: #### L IPA, CMP, NONI #### [facility] [address] [place] [address] Dr. Delonte Sparrow T4 [Mass/Vol] 7.90 ug/dL Normal 4.80-13.90 [facility] Comment on above: Performed By: #### L IPA, CMP, NONI #### [facility] [address] [place] [address] Dr. Delonte Sparrow GLYCOHEMOGLOBIN A1Con 2022 ADA RECOMMENDATION SEE BELOW Normal [facility] Comment on above: Result Comment: ADA RECOMMENDED LIMIT 4.0 - 6.0 ADA THERAPEUTIC TARGET < 7.0 ACTION SUGGESTED > 7.0 Performed By: #### A 1C #### [facility] [address] [place] [address] Dr. Delonte Sparrow Glucose [Mass/Vol] 105 mg/dL Normal [facility] Comment on above: Performed By: #### A 1C #### [facility] [address] [place] [address] Dr. Delonte Sparrow HbA1c (Bld) [Mass fraction] 5.3 % Normal 4.5-6.2 [facility] Comment on above: Performed By: #### A 1C #### [facility] [address] [place] [address] Dr. eDlonte Sparrow IRONon 06-12-2022 Iron [Mass/Vol] 35.0 ug/dL Critically low 50.0-170.0 [facility] Comment on above: Performed By: #### L IPAADELE, NONI #### [facility] [address] [place] [address] Dr. Delonte Sparrow LIPASEon 06-12-2022 Lipase [Catalytic activity/Vol] 130.0 U/L Normal 73.0-393.0 [facility] Comment on above: Performed By: #### L ADELE OCONNELL, NONI #### [facility] [address] [place] [address] Dr. Delonte Sparrow TSHon 06-12-2022 TSH 1.741 uIU/mL Normal 0.358-3.740 [facility] Comment on above: Performed By: #### L ADELE OCONNELL, NONI #### [facility] [address] [place] [address] Dr. Delonte Sparrow VITAMIN D 25 OHon 06-12-2022 VIT D 25-OH 20.9 ng/mL Normal [facility] Comment on above: Performed By: #### Hetal PATEL VITAD #### [facility] [address] [place] [address] Dr. Delonte Sparrow VIT D RANGES SEE BELOW Normal [facility] Comment on above: Result Comment: <20 ng/mL Vit D deficient 20 - <30 ng/mL Vit D insufficient 30 - 100 ng/mL Vit D sufficient >100 ng/mL Potential Toxicity Performed By: #### I AMANDA VITAD #### [facility] [address] [place] [address] Dr. Delonte Sparrow AMYLASEon 08-21-2021 Amylase [Catalytic activity/Vol] 26 U/L Normal 25-115 [facility] Comment on above: Performed By: #### L IPA CMP, NONI #### [facility] [address] [place] [address] Dr. Delonte Sparrow CBC W MANUAL DIFFon 08-22-19 22 ATYPICAL LYMPH # Normal [facility] Comment on above: Performed By: #### C BRITT #### [facility] [address] [place] [address] Dr. Delonte Sparrow ATYPICAL LYMPH % Normal [facility] Comment on above: Performed By: #### C BRITT #### [facility] [address] [place] [address] Dr. Delonte Sparrow BAND # Normal 0.0-0.3 [facility] Comment on above: Performed By: #### C BRITT #### [facility] [address] [place] [address] Dr. Delonte Sparrow BAND % Normal 0-5 [facility] Comment on above: Performed By: #### C BRITT #### [facility] [address] [place] [address] Dr. Delonte Sparrow BASOM # 0.00 103/ul Normal 0.00-0.10 [facility] Comment on above: Performed By: #### C BRITT #### [facility] [address] [place] [address] Dr. Delonte Sparrow BASOM % 0.0 % Critically low 0.2-2.0 [facility] Comment on above: Performed By: #### C BRITT #### [facility] [address] [place] [address] Dr. Delonte Sparrow BLAST # Normal [facility] Comment on above: Performed By: #### C BRITT #### [facility] [address] [place] [address] Dr. Delonte Sparrow BLAST % Normal [facility] Comment on above: Performed By: #### C BRITT #### [facility] [address] [place] [address] Dr. Delonte Sparrow CORRECTED WBC Normal 4.0-11.0 [facility] Comment on above: Performed By: #### C BRITT #### [facility] [address] [place] [address] Dr. Delonte Sparrow EOS # 15.45 103/ul Critically high 0.00-0.70 [facility] Comment on above: Performed By: #### C BCSEA #### [facility] [address] [address] [address] Delonte Sparrow EOS% 57.0 % Critically high 0.9-7.0 [facility] Comment on above: Performed By: #### C BCSEA #### [facility] [address] [address] [address] Delonte Sparrow HCT 45.1 % Normal 36.0-48.0 [facility] Comment on above: Performed By: #### C BCSEA #### [facility] [address] [address] [address] Delonte Sparrow HGB 13.9 g/dl Normal 12.0-16.0 [facility] Comment on above: Performed By: #### C BRITT #### [facility] [address] [address] [address] Delonte Sparrow LYMPHM # 2.98 103/ul Normal 1.20-3.80 [facility] Comment on above: Performed By: #### C BCSEA #### [facility] [address] [address] [address] Delonte Sparrow LYMPHM% 11.0 % Critically low 20.5-60.0 [facility] Comment on above: Performed By: #### C BRITT #### [facility] [address] [address] [address] Delonte Sparrow MCH 23.3 pg Critically low 26.7-34.0 [facility] Comment on above: Performed By: #### C BCSEA #### [facility] [address] [address] [address] Delonte Sparrow MCHC 30.8 g/dl Normal 29.9-35.2 [facility] Comment on above: Performed By: #### C BCSEA #### [facility] [address] [address] [address] Delonte Sparrow MCV 75.5 fL Critically low 81.0-99.0 [facility] Comment on above: Performed By: #### C BCMAN #### [facility] [address] [place] [address] Dr. Delonte Sparrow METAMYELOCYTE # Normal [facility] Comment on above: Performed By: #### C BRITT #### [facility] [address] [place] [address] Dr. Delonte Sparrow METAMYELOCYTE % Normal [facility] Comment on above: Performed By: #### C BRITT #### [facility] [address] [address] [address] Delonte Sparrow MONOM# 1.63 103/ul Critically high 0.30-0.80 [facility] Comment on above: Performed By: #### C BRITT #### [facility] [address] [place] [address] Dr. Delonte Sparrow MONOM% 6.0 % Normal 1.7-12.0 [facility] Comment on above: Performed By: #### C BRITT #### [facility] [address] [place] [address] Dr. Delonte Sparrow MPV 9.9 fL Normal 9.5-13.5 [facility] Comment on above: Performed By: #### C BRTIT #### [facility] [address] [place] [address] Dr. Delonte Sparrow MYELOCYTE # Normal [facility] Comment on above: Performed By: #### C BRITT #### [facility] [address] [place] [address] Dr. Delonte Sparrow MYELOCYTE % Normal [facility] Comment on above: Performed By: #### C BRITT #### [facility] [address] [place] [address] Dr. Delonte Sparrow NRBC Normal [facility] Comment on above: Performed By: #### C BRITT #### [facility] [address] [place] [address] Dr. Delonte Sparrow PLT 343 103/ul Normal 150-450 [facility] Comment on above: Performed By: #### C BRITT #### [facility] [address] [place] [address] Dr. Delonte Sparrow RBC 5.97 106/ul Critically high 4.20-5.40 [facility] Comment on above: Performed By: #### Pravin DE LA TORRE #### [facility] [address] [address] [address] Delonte Sparrow RDW 16.9 % Critically high 11.0-15.0 [facility] Comment on above: Performed By: #### Pravin DE LA TORRE #### [facility] [address] [address] [address] Delonte Sparrow SEG # 7.05 103/ul Critically high 1.40-6.50 [facility] Comment on above: Performed By: #### Pravin DE LA TORRE #### [facility] [address] [address] [address] Delonte Sparrow SEG % 26.0 % Critically low 43.0-75.0 [facility] Comment on above: Performed By: #### Pravin DE LA TORRE #### [facility] [address] [address] [address] Delonte Sparrow WBC 27.1 103/ul Critically high 4.0-11.0 [facility] Comment on above: Performed By: #### Pravin DE LA TORRE #### [facility] [address] [place] [address] ABD/PELV W CONon [...] TOBAR Date: 2021-08-21 16:48 Normal [facility] LIPASEon 08-21-2021 Lipase [Catalytic activity/Vol] 58.0 U/L Critically low 73.0-393.0 [facility] Comment on above: Performed By: #### L ADELE OCONNELL AMY #### [facility] [address] [place] [address] Dr. Delonte Sparrow PROF 14(COMP METB)on 022 Albumin [Mass/Vol] 3.6 g/dL Normal 3.4-5.0 [facility] Comment on above: Performed By: #### L ADELE OCONNELL AMY #### [facility] [address] [address] [address] Delonte Sparrow Albumin/Globulin [Mass ratio] 1.0 {ratio} Normal [facility] Comment on above: Performed By: #### L IPA, CMP, NONI #### [facility] [address] [address] [address] Delonte Sparrow ALP [Catalytic activity/Vol] 125 U/L Critically high 46-116 [facility] Comment on above: Performed By: #### L IPA, CMP, NONI #### [facility] [address] [address] [address] Delonte Sparrow ALT [Catalytic activity/Vol] 27 U/L Normal 14-59 [facility] Comment on above: Performed By: #### L IPA, CMP, NONI #### [facility] [address] [place] [address] Dr. Delonte Sparrow Anion gap [Moles/Vol] 12.7 mmol/L Normal [facility] Comment on above: Performed By: #### L IPA, CMP, NONI #### [facility] [address] [place] [address] Dr. Delonte Sparrow AST [Catalytic activity/Vol] 15 U/L Normal 15-37 [facility] Comment on above: Performed By: #### L IPA, CMP, NONI #### [facility] [address] [place] [address] Dr. Delonte Sparrow Bilirubin [Mass/Vol] 0.3 mg/dL Normal 0.2-1.0 [facility] Comment on above: Performed By: #### L IPA, CMP, NONI #### [facility] [address] [address] [address] Delonte Sparrow Calcium [Mass/Vol] 8.2 mg/dL Critically low 8.5-10.1 [facility] Comment on above: Performed By: #### L IPA, CMP, NONI #### [facility] [address] [address] [address] Delonte Sparrow Chloride [Moles/Vol] 103 mmol/L Normal 98-107 [facility] Comment on above: Performed By: #### L IPA, CMP, NONI #### [facility] [address] [address] [address] Delonte Sparrow CO2 [Moles/Vol] 29.2 mmol/L Normal 21.0-32.0 [facility] Comment on above: Performed By: #### L IPA, CMP, NONI #### [facility] [address] [address] [address] Delonte Sparrow Creatinine [Mass/Vol] 0.81 mg/dL Normal 0.55-1.02 [facility] Comment on above: Performed By: #### L IPA, CMP, NONI #### [facility] [address] [address] [address] Delonte Sparrow EGFR-AF SLOVENIAN >60 Normal >=60 [facility] Comment on above: Performed By: #### L IPA, CMP, NONI #### [facility] [address] [address] [address] Delonte Sparrow EGFR-NON AF SLOVENIAN >60 Normal >=60 [facility] Comment on above: Performed By: #### L IPA, CMP, NONI #### [facility] [address] [address] [address] Delonte Sparrow Globulin (S) [Mass/Vol] 3.7 g/dL Normal [facility] Comment on above: Performed By: #### L IPA, CMP, NONI #### [facility] [address] [address] [address] Delonte Sparrow Glucose [Mass/Vol] 103 mg/dL Normal 74-106 [facility] Comment on above: Performed By: #### L IPA, CMP, NONI #### [facility] [address] [address] [address] Delonte Sparrow Potassium [Moles/Vol] 3.9 mmol/L Normal 3.5-5.1 [facility] Comment on above: Performed By: #### L IPA, CMP, NONI #### [facility] [address] [address] [address] Delonte Sparrow Protein [Mass/Vol] 7.3 g/dL Normal 6.4-8.2 [facility] Comment on above: Performed By: #### L IPA, CMP, NONI #### [facility] [address] [address] [address] Delonte Sparrow Sodium [Moles/Vol] 141 mmol/L Normal 136-145 [facility] Comment on above: Performed By: #### L IPA CMP, NONI #### [facility] [address] [place] [address] Dr. Delonte Sparrow Urea nitrogen [Mass/Vol] 16.0 mg/dL Normal 7.0-18.0 [facility] Comment on above: Performed By: #### L IPA CMP, NONI #### [facility] [address] [place] [address] Dr. Delonte Sparrow Urea nitrogen/Creatinine [Mass ratio] 19.8 mg/mg Normal [facility] Comment on above: Performed By: #### L IPA CMP, NONI #### [facility] [address] [place] [address] Dr. Delonte Awan 06-22-2020 L - -------- Specimen: [id number] Received: 06/22/20 Status: DB Black Num: [id number] Spec Type: Surgical Subm Dr: René Ly Jr, DO Tissues: A Small Intestine - Biopsy/Polyp (TERMINAL ILEUM) B Colon - Polyp (RECTOSIGMOID POLYP) Procedures: HE Stain/4, Gross/Micro L4/2 -------- Patient Age/Sex Location Account Attending Physician -------- Essie Steele 55/F [id number] René Ly Jr, DO -------- SPEC NUM: [id number] RECD: 06/22/20 STATUS: DB BLACK NUM: [id number] GAVINO: 06/22/20 [facility] DR: René Ly Jr, DO ENTERED: 06/22/207 [facility] DR: SONYA TYPE: Surgical DEPT: [...] Entirely submitted in one cassette labeled A1. (/YJ) B. Received in formalin labeled with the patient's name, number and rectosigmoid polyp is a 1 cm martin, granular, slightly lobulated and sessile mucosal polyp. The presumed resection margin is inked blue and the fragment is trisected. Entirely submitted in one cassette labeled B1. (/YJ) -------- Specimen: [id number] Received: 06/22/20 Status: DB Black Num: [id number] Spec Type: Surgical Subm Dr: René Ly Jr, DO Tissues: A Small Intestine - Biopsy/Polyp (TERMINAL ILEUM) B Colon - Polyp (RECTOSIGMOID POLYP) Procedures: HE Stain/4, Gross/Micro L4/2 -------- Patient: Essie Steele [id number] (Continued) -------- Specimen: Received: 06/22/20 (Continued) Signed (signature on file) Iveth Patel MD 06/25/20 1528 -------- Specimen: [id number] Received: 06/22/20 Status: DB Black Num: [id number] Spec Type: Surgical Subm Dr: René Ly Jr, DO Tissues: A Small Intestine - Biopsy/Polyp (TERMINAL ILEUM) B Colon - Polyp (RECTOSIGMOID POLYP) Procedures: HE Stain/4, Gross/Micro L4/2 -------- Patient: Essie Steele Christen [id number] (Continued) -------- Specimen: [id number] Received: 06/22/20 (Continued) Microscopic Description A. Two glass slides with H E stained material have been examined. The microscopic findings support the above pathologic diagnosis. B. Two glass slides with H E stained material have been examined. The microscopic findings support the above pathologic diagnosis. CPT Codes 80175?2 -------- -------- Specimen: [id number] Received: 06/22/20-0950 Status: DB Black Num: [id number] Spec Type: Surgical Subm Dr: René Ly Jr, DO Tissues: A Small Intestine - Biopsy/Polyp (TERMINAL ILEUM) B Colon - Polyp (RECTOSIGMOID POLYP) Procedures: HE Stain/4, Gross/Micro L4/2 -------- Patient: Essie Steele [id number] (Continued) -------- Signed (signature on file) Iveth Patel MD 06/25/20 1528 Normal [facility] SARS-CoV-2 (COVID-19) RNA WES+probe Ql (Unsp spec) Negative Normal Negative [facility] Comment on above: Order Comment: Healt hcare Worker?: N Result Comment: Test ing for SARS-CoV-2 by RT-PCR This test was developed and its performance characteristics determined by [employer] ([employer]) and validated at the [facility]. This test has not been [...] is terminated or revoked sooner. PERFORMED BY: [place] [address] PATHOLOGIST WOOD TREATING INSPECTOR NIALL MILAN M.D. Performed By: #### C OVID-19 [facility] #### [address] COVID-19 Positive/Negativeon 06-20-2020 SARS-CoV-2 (COVID-19) N gene WES+probe Ql (Resp) Negative Negative [facility] Comment on above: Testing for SARS-CoV -2 by RT-PCRThis test was developed and its performance characteristics determined by [employer] ([employer]) and validated at the [facility]. This test has not been [...] (COVID-19) RNA WES+probe Ql (Unsp spec) N/A [facility] Cytologyon 04-12-2018 Cytology (NOTE) [id number] [facility] ANATOMIC PATHOLOGY [address] [place] [address]. [place], [place] [address] GYNECOLOGIC CYTOLOGY REPORT Patient Name: ESSIE STEELE MR#: [id number] Specimen #[id number] Source: 1: Cervical material, (ThinPrep vial, Imaging-assisted review) Clinical History Postmenopausal Z01.419 Routine hematology specialist exam without abnormal findings High Risk HPV DNA testing is requested if the diagnosis is ASC-US LMP: 11/11/15 INTERPRETATION Cervical material, (ThinPrep vial, Imaging-assisted review): Specimen Adequacy: Satisfactory for evaluation. - Endocervical/transfor mation zone component present. - Scant cellularity, predominantly inflammatory exudate. Descriptive Diagnosis: Negative for intraepithelial lesion or malignancy. Shift in bruce suggestive of bacterial vaginosis. Director Of Industrial Relations: HARJIT Valera(ASCP) Electronically Signed Out bessie/04/23/2018 Normal [facility] Comment on above: Performed By: #### P PPVP #### [employer] [address] [place] [address] [id number] [employer]: Karthik Lynn MD Vital Signs Date Time Vital Sign Value Performing Clinician Facility 01-18-2024 09:19-050 Body height 168.9 cm Renny Baron MD Work Phone: [facility] 01-18-2024 09:19-0500 Body mass index (BMI) [Ratio] 38.27 kg/m2 Renny Baron MD Work Phone: [facility] 01-18-2024 09:19-0500 Body temperature 97.2 [degF] Renny Baron MD Work Phone: [facility] 01-18-2024 09:19-0500 Body weight 109.2 kg Renny Baron MD Work Phone: [facility] 01-18-2024 09:19-0500 Diastolic blood pressure 100 mm[Hg] Renny Baron MD Work Phone: [facility] 01-18-2024 09:19-0500 Heart rate 68 /min Renny Baron MD Work Phone: [facility] 01-18-2024 09:19-0500 Systolic blood pressure 153 mm[Hg] Renny Baron MD Work Phone: [facility] 11-23-2023 08:11-0400 Body weight 108.5 kg Kristy Evangelista MD Work Phone: [facility] 11-23-2023 08:11-0400 Diastolic blood pressure 74 mm[Hg] Kristy Evangelista MD Work Phone: [facility] 11-23-2023 08:11-0400 Heart rate 71 /min Kristy Evangelista MD Work Phone: [facility] 11-23-2023 08:11-0400 Systolic blood pressure 139 mm[Hg] Kristy Evangelista MD Work Phone: [facility] 10-07-2022 09:30-0400 Body height 170.18 cm Philippe Wise Other [employer] Other 10-07-2022 09:30-0400 Body mass index (BMI) [Ratio] 34.45 kg/m2 Philippe Wise Other [employer] Other 10-07-2022 09:30-0400 Body weight 99.79 kg Philippe Wise Other [employer] Other 10-07-2022 09:30-0400 Diastolic blood pressure 83 mm[Hg] Philippe Wise Other [employer] Other 10-07-2022 09:30-0400 Systolic blood pressure 139 mm[Hg] Philippe Wise Other [employer] Other 08-29-2021 12:00-0400 Body height 170.18 cm René Ly Other [employer] Other 08-29-2021 12:00-0400 Body mass index (BMI) [Ratio] 35.55 kg/m2 René Ly Other [employer] Other 08-29-2021 12:00-0400 Body weight 102.97 kg René Ly Other [employer] Other 08-29-2021 12:00-0400 Diastolic blood pressure 89 mm[Hg] René Ly Other [employer] Other 08-29-2021 12:00-0400 Systolic blood pressure 142 mm[Hg] René Ly Other [facility] Other Encounters Encounter Date Encounter Type Care Provider Facility Start: 03-23-2024 ambulatory Zacarias COBIAN Facility :[facility]on[facility] Start: 03-11-2024 ambulatory Zacarias COBIAN Facility: Mamta Nguyen Start: 03-08-2024 End: 03-09-2024 ambulatory Kristy Evangelista MD Work Phone: [facility] Comment on above: PCP Start: 02-29-2024 End: 03-01-2024 Refill Kristy Evangelista MD Work Phone: [facility] Comment on above: Refill Request Start: 02-28-2024 End: 02-29-2024 Refill Renny Baron MD Work Phone: Rheumatology Comment on above: Refill Request Start: 02-08-2024 End: 02-08-2024 ambulatory RENNY BARON Facility:[facility] Comment on above: Arthralgia, unspecif ied joint (Primary Dx); Enthesitis; Encounter for long-term (current) use of medications; Carpal tunnel syndrome of left wrist; Positive KAELA (antinuclear antibody) Start: 02-08-2024 End: 02-08-2024 Telemedicine consultation with patient Renny Baron MD Work Phone: Rheumatology Start: 01-28-2024 End: 01-28-2024 ambulatory Renny Baron MD Work Phone: Rheumatology Comment on above: [employer]ra[employer] Start: 01-20-2024 End: 01-20-2024 Get Medical Advice Renny Baron MD Work Phone: Rheumatology Comment on above: Xrays order Start: 01-18-2024 End: 01-18-2024 ambulatory RENNY BARON Facility:[facility] Start: 01-18-2024 End: 01-18-2024 Office outpatient new 60 minutes Renny Baron MD Work Phone: Rheumatology Comment on above: Encounter for long-t erm (current) use of medications (Primary Dx); Crohn's disease of large intestine without complication (HCC); Arthritis; Enthesitis; Arthralgia, unspecified joint Start: 01-18-2024 End: 01-18-2024 ambulatory KRISTY EVANGELISTA Facility:[facility] Start: 01-18-2024 End: 01-18-2024 Subsequent hospital visit by physician Bone Density Main A21 1 Radiology Comment on above: Symptomatic menopaus al or female climacteric states [N95.1] Start: 12-02-2023 End: 12-02-2023 ambulatory [facility] Start: 11-23-2023 End: 11-23-2023 ambulatory KRISTY EVANGELISTA Facility:[facility] Start: 11-23-2023 End: 11-23-2023 Patient encounter procedure Kristy Evangelista MD Work Phone: [facility] Comment on above: Symptomatic menopaus al or female climacteric states (Primary Dx); Paroxysmal atrial fibrillation (HCC); Gastroesophageal reflux disease without esophagitis; Migraine with aura and with status migrainosus, not intractable; Crohn's disease of large intestine without complication (HCC); Arthritis Start: 09-24-2023 End: 09-24-2023 ambulatory GODWIN HARRELL Not Available Start: 07-01-2023 End: 07-01-2023 ambulatory [facility] Start: 05-26-2023 End: 05-26-2023 ambulatory KRISHAN [facility] Start: 03-30-2023 End: 03-30-2023 ambulatory [facility] Start: 10-07-2022 End: 10-07-2022 ambulatory Philippe Wise Other [facility] Other Start: 10-07-2022 Patient encounter procedure Philippe Wise [facility] Gastroenterology Start: 07-07-[address] KAYY PANIAGUA . Facili ty:[facility] Start: 06-12-2022 End: 06-13-[address] KAYY PANIAGUA . Facility: Start: 08-29-2021 End: 08-29-2021 ambulatory René Ly Other [facility] Other Start: 08-29-2021 Office outpatient vi sit 25 minutes René Ly [facility] Gastroenterology Start: 08-21-2021 End: 08-22-[address] KAYY PANIAGUA . Facility: Start: 06-20-2020 End: 06-20-2020 Patient encounter procedure Nader Paniagua Work Phone: -Pre-Surgical Testing Start: 04-12-2018 Encounter for gynecological examination (general) (routine) without abnormal findings [facility] Start: 04-12-2018 End: 04-13-2018 Patient encounter procedure ADA [facility] Procedures Date Procedure Procedure Detail Performing Clinician Start: 01-18-2024 Dxa bone density apollo dy 1/> sites axial sadie Evangelista MD Work Phone: Start: 04-12-2018 Screen pap by gisela cleveland md supv [facility] Plan of Treatment Date Care Activity Detail Author Start: 01-17-2027 Diabetes Screening Diabetes Screenin g [facility] Start: 03-14-2024 End: 03-14-2024 Patient encounter procedure 03/14/2024 11:20 AM EST Office Visit [facility] [address] [address] Kristy Evangelista MD [address] [place] [address] 3 MONTH FOLLOW UP [facility] Comment on above: 3 MONTH FOLLOW UP Start: 02-08-2024 End: 02-08-2024 ambulatory 02/08/2024 9:30 AM EST [facility] [address] [address] Renny Baron MD [address] [address] 3w f/u - discuss results Rheumatology Comment on above: 3w f/u - discuss res ults Start: 01-18-2024 End: 04-18-2024 BLOOD TB SCREEN [facility] Comment on above: Expected: 01/18/2024 , Expires: 04/18/2024 Start: 01-18-2024 End: 04-18-2024 Cyclic citrullinated peptide IgG Ab [Units/volume] in Serum or Plasma [facility] Comment on above: Expected: 01/18/2024 , Expires: 04/18/2024 Start: 01-18-2024 End: 04-18-2024 DNA double strand Ab [Units/volume] in Serum by Immunoassay [facility] Comment on above: Expected: 01/18/2024 , Expires: 04/18/2024 Start: 01-18-2024 End: 04-18-2024 Extractable nuclear Ab panel - Serum [facility] Comment on above: Expected: 01/18/2024 , Expires: 04/18/2024 Start: 01-18-2024 End: 01-18-2024 Patient encounter procedure Radiology Comment on above: DXA-AXIAL SKELETON, Symptomatic menopausal or female climacteric states [N95.1], BD DXA TRABECULAR BONE SCORE (TBS),.Symptomatic menopausal or female climacteric states [N95.1] Arthritis [M19.90] Start: 10-25-2023 Covid-19 Vaccine ( season) Covid-19 Vaccine ( season) [facility] Start: 10-25-2023 Influenza vaccination Influenza Vacc ine (#1) [facility] Start: 04-12-2021 Screening for malign ant neoplasm of cervix Cervical Cancer Screening [facility] Start: 01-17-2016 Pneumococcal Vaccine : 50+ (1 of 1 - PCV) Pneumococcal Vaccine: 50+ (1 of 1 - PCV) [facility] Start: 01-17-2016 Shingrix Vaccine (1 of 2) Shingrix Vaccine (1 of 2) [facility] Start: 2011 Diabetes Screening Diabetes Screenin g [facility] Start: 2011 Lipid panel Lipid Screening [facility] Start: 2011 Screening for malign ant neoplasm of colon [facility] Start: 2006 Screening for malign ant neoplasm of breast Mammogram Screening [facility] Start: 1985 Hepatitis B Vaccine (1 of 3 - 19+ 3-dose series) Hepatitis B Vaccine (1 of 3 - 19+ 3-dose series) [facility] Start: 1985 Urine microalbumin profile DTaP,Tdap,Td Vaccine (1 - Tdap) [facility] Start: 01-17-1984 Anxiety Screening Anxiety Screening [facility] Start: 01-17-1984 Depression Screening Depression Scre ening [facility] Start: 01-17-1984 Hepatitis C screening Hepatitis C Sc reening [facility] Start: 01-17-1984 HIV screening HIV Screening [facility] End: 12-22-2024 BD DXA TRABECULAR BONE SCORE (TBS) BD DXA TRABECULAR BONE SCORE (TBS) Radiology Routine Symptomatic menopausal or female climacteric states 1 Occurrences starting 11/23/2023 until 12/22/2024 [facility] Comment on above: 1 Occurrences starti ng 11/23/2023 until 12/22/2024 End: 12-22-2024 DXA Skeletal system.axial Views for bone density DXA-AXIAL SKELETON Radiology Routine Symptomatic menopausal or female climacteric states 1 Occurrences starting 11/23/2023 until 12/22/2024 [facility] Work Phone: Comment on above: 1 Occurrences starti ng 11/23/2023 until 12/22/2024 End: 02-16-2025 XR Hand - bilateral PA and Lateral XR HAND 2V PA/LAT BILATERAL Radiology Routine Arthritis 1 Occurrences starting 01/18/2024 until 02/16/2025 [facility] Comment on above: 1 Occurrences starti ng 01/18/2024 until 02/16/2025 End: 02-16-2025 XR Sacroiliac Joint Views XR SACROILIAC JOINTS 2V AP PELVIS/FERGUESON Radiology Routine Arthritis 1 Occurrences starting 01/18/2024 until 02/16/2025 [facility] Work Phone: Comment on above: 1 Occurrences starti ng 01/18/2024 until 02/16/2025 End: 02-16-2025 XR Shoulder - left 2 Views XR SHOULDER LIMITED 2V AP/TRUE AP LEFT Radiology Routine Arthritis 1 Occurrences starting 01/18/2024 until 02/16/2025 [facility] Comment on above: 1 Occurrences starti ng 01/18/2024 until 02/16/2025 End: 02-16-2025 XR Shoulder - right 2 Views XR SHOULDER [id number] AP/TRUE AP RIGHT Radiology Routine Arthritis 1 Occurrences starting 01/18/2024 until 02/16/2025 [facility] Comment on above: 1 Occurrences starti ng 01/18/2024 until 02/16/2025 Immunizations Immunization Date Immunization Notes Care Provider [facility] 12-07-2015 influenza virus vacc ine, unspecified formulation Kristy Evangelista MD Work Phone: [facility] Payers Date Payer Category Payer Private Health Insurance [employer] A ETNA POS [id number] 2017-Present [phone] [address] [place] [address] POS [id number] 1966 Unknown [id number] 1966 Unknown [id number] 1966 Unknown [id number] 1966 Unknown [id number] 1966 Unknown [id number] 1959 Private Health Insurance [id number] Self-pay [employer] [id number] Unknown [employer] [id number] Social History Date Type Detail Facility Start: 11-03-[facility] Start: 1965 Sex Assigned At Female [facility] Start: 11-23-2023 End: 01-18-2024 Sex Assigned At [facility] Start: 11-23-2023 Tobacco smoking stat [facility] Never smoked tobacco [facility] Start: 11-23-2023 Tobacco use and exposure Smokeless tobacco non-user [facility] Start: 11-23-2023 End: 01-18-2024 Alcoholic beverage intake Current drinker of alcohol (finding) [facility] Start: 11-23-2023 End: 01-18-2024 History of Social function [facility] Start: 11-23-2023 Alcohol Comment occ [facility] Start: 1965 Sex assigned at Not on file [facility] Adult Depression Screening Assessment 2 [facility] Goals Date Patient Goal Desired Activity /State Clinical Notes 07-24-2020 to 02-29-2024 Telephone Encounter - Annika Cruz - 02/29/2024 3:46 PM ESTTelephone Encounter - Annika Cruz - 02/29/2024 3:46 PM ESTTelephone Encounter - Kori Banks RN - 02/29/2024 10:47 AM EST Note Date & Type Note Facility 02-29-2024 Telephone encounter Note 11/23/2023 03/14/2024 Patient phones requesting refills as follows: Requested Prescriptions Pending Prescriptions Disp Refills estradiol (VIVELLE-DOT) 0.0375 mg/24 hr patch 30 Patch 1 Sig: Apply 1 Patch as directed two times a week. Please review and advise. [facility] 02-29-2024 Miscellaneous Notes 11/23/2023 03/14/2024 Patient phones requesting refills as follows: Requested Prescriptions Pending Prescriptions Disp Refills estradiol (VIVELLE-DOT) 0.0375 mg/24 hr patch 30 Patch 1 Sig: Apply 1 Patch as directed two times a week. Please review and advise. documented in this encounter [facility] 02-29-2024 Telephone encounter Note Images from the original note were not included. Requesting refill on Celebrex. Script pended. Thank you. Most recent Rheumatology visit: 02/08/2024 (with Renny Baron) Last Bone Density on file: 01/18/2024 Rheumatology Care Team: None on file Recent Office Visits - This Specialty 02/08/2024 Arthralgia, unspecified joint Rheumatology Renny Baron MD 01/18/2024 Encounter for long-term (current) use of medications Rheumatology Renny Baron MD Upcoming Rheumatology Appointments - Next 365 Days No appointments to display CBC: Latest Ref Rng & Units 01/18/2024 CBC WBC 3.70 - 11.00 k/uL 7.92 Hemoglobin 11.5 - 15.5 g/dL 12.8 Hematocrit 36.0 - 46.0 % 40.8 Platelet Count 150 - 400 k/uL 292 Abs Neut (ANC) 1.45 - 7.50 k/uL 4.93 Abs Lymph 1.00 - 4.00 k/uL 1.99 Vitamin D: None on file in the last 6 months LFT: Latest Ref Rng & Units 01/18/2024 CMP Sodium 136 - 144 mmol/L 140 Potassium 3.7 - 5.1 mmol/L 3.7 Chloride 98 - 107 mmol/L 102 CO2 22 - 30 mmol/L 26 Glucose 74 - 99 mg/dL 91 BUN 7 - 21 mg/dL 12 Creatinine 0.58 - 0.96 mg/dL 0.59 Calcium 8.5 - 10.2 mg/dL 9.2 AST 13 - 35 U/L 25 ALT 7 - 38 U/L 20 Alkaline Phosphatase 34 - 123 U/L 148 Hepatic Function: Creatinine: Latest Ref Rng & Units 01/18/2024 Creatinine Creatinine 0.58 - 0.96 mg/dL 0.59 ESR/CRP: Latest Ref Rng & Units 01/18/2024 ESR, WSR WSR 0 - 20 mm/hr 12 Latest Ref Rng & Units 01/18/2024 CRP CRP <0.9 mg/dL 0.7 Uric Acid: None on file in the last 6 months Open Standing (Multiple Instance) Lab Orders None Open Future (Single Instance) Lab Orders None [facility] 02-29-2024 Miscellaneous Notes Images from the original note were not included. Requesting refill on Celebrex. Script pended. Thank you. Most recent Rheumatology visit: 02/08/2024 (with Renny Baron) Last Bone Density on file: 01/18/2024 Rheumatology Care Team: None on file Recent Office Visits - This Specialty 02/08/2024 Arthralgia, unspecified joint Rheumatology Renny Baron MD 01/18/2024 Encounter for long-term (current) use of medications Rheumatology Renny Baron MD Upcoming Rheumatology Appointments - Next 365 Days No appointments to display CBC: Latest Ref Rng & Units 01/18/2024 CBC WBC 3.70 - 11.00 k/uL 7.92 Hemoglobin 11.5 - 15.5 g/dL 12.8 Hematocrit 36.0 - 46.0 % 40.8 Platelet Count 150 - 400 k/uL 292 Abs Neut (ANC) 1.45 - 7.50 k/uL 4.93 Abs Lymph 1.00 - 4.00 k/uL 1.99 Vitamin D: None on file in the last 6 months LFT: Latest Ref Rng & Units 01/18/2024 CMP Sodium 136 - 144 mmol/L 140 Potassium 3.7 - 5.1 mmol/L 3.7 Chloride 98 - 107 mmol/L 102 CO2 22 - 30 mmol/L 26 Glucose 74 - 99 mg/dL 91 BUN 7 - 21 mg/dL 12 Creatinine 0.58 - 0.96 mg/dL 0.59 Calcium 8.5 - 10.2 mg/dL 9.2 AST 13 - 35 U/L 25 ALT 7 - 38 U/L 20 Alkaline Phosphatase 34 - 123 U/L 148 Hepatic Function: Creatinine: Latest Ref Rng & Units 01/18/2024 Creatinine Creatinine 0.58 - 0.96 mg/dL 0.59 ESR/CRP: Latest Ref Rng & Units 01/18/2024 ESR, WSR WSR 0 - 20 mm/hr 12 Latest Ref Rng & Units 01/18/2024 CRP CRP <0.9 mg/dL 0.7 Uric Acid: None on file in the last 6 months Open Standing (Multiple Instance) Lab Orders None Open Future (Single Instance) Lab Orders None documented in this encounter [facility] 02-08-2024 History of Present illness Narrative Images from the original note were not included. VIRTUAL VISIT PROGRESS NOTE This is a virtual visit using [employer] Zoom Video Visit. It required patient-provider interaction for the medical decision making as documented below. I have communicated my name and active licensure. The patient's identity and physical location were verified at the time of this visit. Either the patient or their legal factory representative has been informed of the risks and benefits of -- and alternatives to -- treatment through a remote evaluation and consents to proceed with the evaluation remotely. Essie Steele is a 59 year old female seen for Joint Pain. No specialty comments available. All documentation from previous visit was copied and pasted, documentation has been reviewed and edited as necessary for today's visit. Please see 01/18/2024 visit for full details: - Initially evaluated for arthritis She had a hysterectomy 3 years [...] CD standpoint. - Previously on pentasa, steroids Prior Tx - motrin, tylenol Current Tx - Celebrex 100mg BID prn 02/08/2024 Update - Work up from prior visit: CBC wo cytopenias, CMP normal aside from mildly elevated AlkPhos. GAYATRI negative, dsDNA/C3/C4 normal, normal SED, UA with only trace protein - 02/02/2024: Xray of hands, shoulders, SI. There was no sign of inflammatory arthritis but bl AC joint OA of shoulders and mild OA of hips - Celebrex daily to BID prn has helped. This has not upset the stomach - Some tingling and numbness 1-3 on left hand and she is left hand predominant. PATIENT ENTERED DATA: PROMIS Assessments 01/17/2024 PROMIS Global Health - [...] 3 Weighed Score 4.72 (High severity ) Patient Health Questionnaire (PHQ-9) No data to display (0-4) minimal depression, (5-9) mild depression, (10-14) moderate depression, (15-19) moderately severe depression, (20-27) severe depression OTHER HISTORY REVIEWED (electronic chart updated): PAST MEDICAL HISTORY Diagnosis Date Crohn's disease (HCC) Paroxysmal atrial fibrillation (HCC) PAST SURGICAL HISTORY Procedure Laterality Date TOTAL ABDOM HYSTERECTOMY 02/24/2020 +BSO No family history on file. Social History Tobacco Use Smoking status: Never Smokeless tobacco: Never Substance Use Topics Alcohol use: Yes Comment: occ Drug use: Never Current Outpatient Medications Medication Sig celecoxib (CELEBREX) 100 mg capsule Take 1 capsule by mouth two times a day. aspirin, enteric coated (ASPIRIN, ENTERIC COATED) 81 [...] Take 180 mg by mouth every morning. fluticasone (FLONASE) 50 mcg/actuation nasal spray once daily. loratadine (CLARITIN) 10 mg tablet once daily. pantoprazole DR (PROTONIX) 40 mg tablet Take 1 tablet by mouth every 12 hours. estradiol (VIVELLE-DOT) 0.0375 mg/24 hr patch Apply 1 Patch as directed two times a week. No current facility-administered medications for this visit. ALLERGIES Allergen Reactions Codeine GI Upset, Other: See Comments Meperidine Unknown, Vomiting REVIEW OF SYSTEMS: Review of Systems CONSTITUTION: Negative for: Fever and Recent weight change HEENT: Negative for: Nosebleeds, Mouth sores, Trouble swallowing and Dry mouth RESPIRATORY: Positive for: Shortness of breath Negative for: Cough and Pain with breathing GASTROINTESTINAL: Positive for: Diarrhea Negative for: Melena, Heartburn and Abdominal pain MUSCULOSKELETAL: Positive for: Arthralgias, Myalgias, Joint swelling and Morning Joint Stiffness Negative for: Muscle weakness NEUROLOGICAL: Positive for: Headaches Negative for: Numbness and Memory loss SKIN: Negative for: Rash, Skin changes, Hair loss and Nail changes EYES: Positive for: Eye dryness Negative for: Eye pain, Eye redness and visual disturbance CARDIOVASCULAR: Negative for: Chest pain and Leg swelling GENITOURINARY: Negative for: Dysuria and Hematuria HEMATOLOGIC/LYMPHATIC: Negative for: Swollen glands All other reviewed and negative other than HPI. PHYSICAL EXAMINATION: VIDEO EXAM: (if completed, performed via video enabled technology) GENERAL: alert and appropriate, in no distress and well-hydrated, well nourished 01/18/2024 11/23/2023 Weight Weight 240 lb 11.9 oz 239 lb 3.2 oz 01/18/2024 11/23/2023 Blood Pressure Systolic 153 139 Diastolic 100 74 Latest Ref Rng & Units 01/18/2024 CBC WBC 3.70 - 11.00 k/uL 7.92 Hemoglobin 11.5 - 15.5 g/dL 12.8 Hematocrit 36.0 - 46.0 % 40.8 Platelet Count 150 - 400 k/uL 292 Abs Neut (ANC) 1.45 - 7.50 k/uL 4.93 Abs Lymph 1.00 - 4.00 k/uL 1.99 Latest Ref Rng & Units 01/18/2024 CMP Sodium 136 - 144 mmol/L 140 Potassium 3.7 - 5.1 mmol/L 3.7 Chloride 98 - 107 mmol/L 102 CO2 22 - 30 mmol/L 26 Glucose 74 - 99 mg/dL 91 BUN 7 - 21 mg/dL 12 Creatinine 0.58 - 0.96 mg/dL 0.59 Calcium 8.5 - 10.2 mg/dL 9.2 AST 13 - 35 U/L 25 ALT 7 - 38 U/L 20 Alkaline Phosphatase 34 - 123 U/L 148 Latest Ref Rng & Units 01/18/2024 ESR, WSR WSR 0 - 20 mm/hr 12 Latest Ref Rng & Units 01/18/2024 CRP CRP <0.9 mg/dL 0.7 Latest Ref Rng & Units 01/18/2024 C3, C4 C3 86 - 166 mg/dL 158 C4 13 - 46 mg/dL 28 Latest Ref Rng & Units 01/18/2024 RF and CCP Rheumatoid Factor <16 IU/mL 12 CCP Antibody IgG Qualitative Negative Negative CCP Antibody, IgG <20 Units <15 Latest Ref Rng & Units 01/18/2024 Hepatitis Screen Hep B Core Ab, Total Negative Negative Hep B Surf Ab Qual Positive Hep C Antibody IA Negative Negative Hep B Surface Ag Negative Negative 01/18/2024 TB Screen TB Interpretation Infection with M. tuberculosis complex is unlikely. If latent tuberculosis infection is highly suspected, a negative result does not rule out the infection. Specimens from immunocompromised patients and those <5 years of age may show false negative results. In case of a contact investigation, please repeat 8-12 weeks after a known exposure. TB Result Negative Latest Ref Rng & Units 01/18/2024 Antibodies (w/o coag labs) DNA Antibody <=200 IU/mL 29 Anti-Sm <1.0 AI <0.2 Sm Antibody Negative Negative Ribosomal SCIENCE TECHNICIAN Ab <1.0 AI <0.2 Ribosomal SCIENCE TECHNICIAN Qualitative Negative Negative Chromatin Ab <1.0 AI <0.2 Chromatin Ab Qual Negative Negative SSA Antibody Qual Negative Negative Anti-SSA <1.0 AI <0.2 Anti-SSB <1.0 AI <0.2 SCIENCE TECHNICIAN Antibody QUAL Negative Negative Scleroderma Ab Qual Negative Negative Scl-70 Abs, EIA <1.0 AI <0.2 Centromere Ab <1.0 AI <0.2 CENTROMERE AB QUAL Negative Negative CYNDI-1 ANTIBODY, IGG <1.0 AI <0.2 CYNDI 1 ANTIBODY QUAL Negative Negative Latest Ref Rng & Units 01/18/2024 Urinalysis Protein, Urine Negative Trace RBC, Urine 0-2 /HPF 0-2 /HPF ASSESSMENT AND PLAN: No specialty comments available. Diagnoses: (M25.50) Arthralgia, unspecified joint (primary encounter diagnosis) (M77.9) Enthesitis (Z79.899) Encounter for long-term (current) use of medications (G56.02) Carpal tunnel syndrome of left wrist (R76.8) Positive KAELA (antinuclear antibody) 59 year old with hx of CD (dx age 20, no daily tx) who presents for follow up of polyarticular arthralgias and enthesitis. The majority of her arthralgias are most consistent with mechanical arthritis (OA, DJD) as she is worse with use and worse at the end of the day and Xray of shoulder and hips (scanned documents) show OA (01/2024 with hip OA and AC OA shoulder). Sometimes arthralgias can occur with menopause and her hot flashes are mildly improved with HRT. She has had some relief with celebrex. 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 She had prior tenderness at bl Achilles insertion tenderness. Xray of hands and SI joints (01/2024) was normal. Her back pain by history is more c/w mechanical (started >age 51, worse with use, better with rest but does improve some with NSAIDs). Consider Sjgoren's with sicca but negative SSA/SSB and sicca sx can also increase after menopause # Arthralgias: OA/DJD pain worse with use wo synovitis, possible postmenopausal. Consider IBD related arthropathy with history of CD. 01/2024 xray hands/SI normal. Xray of shoulder/hips with OA - Mechanical joint pain: Discussed importance of wt loss - Refer to PT: she will get this at [facility] - If not improved, then CSI for shoulder or ortho/pain management for hip - Continue Celebrex 100mg BID prn, but encourage her to discuss this with GI as sometimes NSAIDS can exacerbated UC. There are some studies that suggest that celebrex may be better in well controlled CD than other NSAIDs though no NSAID is preferred. Partial benefit with ibuprofen. Risks/benefits discussed. Discussed the importance of not taking other NSAIDs while taking celebrex. - Consider US of hands or US ankle/foot to further evaluate for inflammatory arthritis/tendonitis. Discussed that with the IBD and enthesitis that could trial of ssz/mtx to see if component of IBD related arthroapthy, but she would like to try PT as above first. # Left CTS: 1-3 finger numbness c/w CTS, types a lot so could be use related - try night splints, if insufficient benefit, consider EMG or see plastic/ortho/rheum for CSI for CTS # Positive KAELA: low suspicion for SLE/CTD (hair shedding but no alopcia, joint pain could be IBD related or OA, prior anemia was CD related) - Normal GAYATRI, dsDNA, C3, C4, UA with only trace protein - Discussed that +KAELA can be found in 5-20% of the normal population and is not indicative of underlying autoimmune condition without specific associated sx. At this time, there is no evidence of SLE but if pt develops new symptoms, please come back for evaluation. Orders this visit: No orders found for this visit on 02/08/24. Return in about 3 months (around 05/08/2024). After PT, ? Consider ssz/mtx for enthesitis if not improved with PT I spent a total of 25 minutes on the date of the service which included ezof-jt-fbzz patient care, completing clinical documentation, and communicating results to the patient/family/caregiver Renny Baron MD documented in this encounter [facility] 02-08-2024 Note HNO ID: [id number] Author: RENNY BARON MD Service: ? Author Type: Physician Type: Progress Notes Filed: 02/08/2024 09:59 Note Text: VIRTUAL VISIT PROGRESS NOTE This is a virtual visit using SpreadShoutt Zoom Video Visit. It required patient-provider interaction for the medical decision making as documented below. I have communicated my name and active licensure. The patient's identity and physical location were verified at the time of this visit. Either the patient or their legal factory representative has been informed of the risks and benefits of -- and alternatives to -- treatment through a remote evaluation and consents to proceed with the evaluation remotely. Essie Steele is a 59 year old female seen for Joint Pain. No specialty comments available. All documentation from previous visit was copied and pasted, documentation has been reviewed and edited as necessary for today's visit. Please see 01/18/2024 visit for full details: - Initially evaluated for arthritis She had a hysterectomy 3 years [...] CD standpoint. - Previously on pentasa, steroids Prior Tx - motrin, tylenol Current Tx - Celebrex 100mg BID prn 02/08/2024 Update - Work up from prior visit: CBC wo cytopenias, CMP normal aside from mildly elevated AlkPhos. GAYATRI negative, dsDNA/C3/C4 normal, normal SED, UA with only trace protein - 02/02/2024: Xray of hands, shoulders, SI. There was no sign of inflammatory arthritis but bl AC joint OA of shoulders and mild OA of hips - Celebrex daily to BID prn has helped. This has not upset the stomach - Some tingling and numbness 1-3 on left hand and she is left hand predominant. PATIENT ENTERED DATA: PROMIS Assessments 01/17/2024 PROMIS Global Health - [...] 3 Weighed Score 4.72 (High severity ) Patient Health Questionnaire (PHQ-9) No data to dis (more content not included)... [facility] 01-20-2024 Telephone encounter Note Spoke with pt and confirmed she would [place] [address]. Called [facility] outpatient radiology dept and obtained fax number of [phone]. X-ray orders from 01/18/2024 faxed with confirmation of fax receipt received. Advised pt to please let us know once x-rays are completed, so that we can ensure that we received the results. Pt verbalized understanding. [facility] 01-20-2024 Miscellaneous Notes Spoke with pt and confirmed she would like x-ray orders faxed to [address] [address]. Called [facility] outpatient radiology dept and obtained fax number of [phone]. X-ray orders from 01/18/2024 faxed with confirmation of fax receipt received. Advised pt to please let us know once x-rays are completed, so that we can ensure that we received the results. Pt verbalized understanding. documented in this encounter [facility] 01-18-2024 History of Present illness Narrative Images from the original note were not included. Rheumatology CONSULTATION Date of Service: 01/18/2024 Patient: Essie Steele Primary Care Physician: Kayy Paniagua ([place], [place]) Last Rheumatology visit: None at [facility] Referring Provider: Kristy Evangelista [address] [facility] [address] Essie Steele is here today at request of Dr. Evangelista specifically for consultation of my opinion in regards to the chief complaint listed below. Correspondence will be shared today via the [facility] electronic health record or through regular mail, [...] Duration (Timeframe) Months Frequency Continuous Intervention Medication;Reposition;Imagery;Pi llow support Patient-Entered Data PROMIS Assessments 01/17/2024 PROMIS [...] following exceptions: - Achilles tenderness - Negative Caprice's - tenderness and swelling as per homunculus [...] XR HAND 2V PA/LAT BILATERAL XR SHOULDER [id number] AP/TRUE AP RIGHT XR SHOULDER LIMITED 2V [...] which included preparing to see the patient, qpht-jc-bwud patient care, completing clinical documentation, obtaining and/or reviewing separately obtained history, performing a medically appropriate examination, counseling and educating the patient/family/caregiver, ordering medications, tests, or procedures, and communicating results to the patient/family/caregiver. Renny Baron MD PhD Rheumatology documented in this encounter [facility] 01-18-2024 Note HNO ID: [id number] Author: RENNY BARON MD Service: ? Author Type: Physician Type: Progress Notes Filed: 01/18/2024 18:39 Note Text: Rheumatology CONSULTATION Date of Service: 01/18/2024 Patient: Essie Steele Primary Care Physician: Kayy Paniagua ([place], [place]) Last Rheumatology visit: None at [facility] Referring Provider: Kristy Evangelista [address] [facility] [address] Essie Steele is here today at request of Dr. Evangelista specifically for consultation of my opinion in regards to the chief complaint listed below. Correspondence will be shared today via the [employer] electronic health record or through regular mail, [...] with going u (more content not included)... [facility] 01-18-2024 History of Present illness Narrative [...] PATIENT PRESENTS WITH AN IMPLANTABLE OR ATTACHED GRANTS DIRECTOR: No RADIOLOGY DEPARTMENT: Bone Density PERIPHERAL IV DATA: Not applicable SIGNED BY: AUBREY Christianson) January 18, 2024 8:58 AM documented in this encounter [facility] 01-18-2024 Note HNO ID: [id number] Author: FLORENCIA CALDERON RT(R) Service: ? Author [...] PATIENT PRESENTS WITH AN IMPLANTABLE OR ATTACHED GRANTS DIRECTOR: No RADIOLOGY DEPARTMENT: Bone Density PERIPHERAL IV DATA: Not applicable SIGNED BY: Florencia Calderon, RT(R) January 18, 2024 8:58 AM [facility] 12-02-2023 Note Patient here for 6 [...] All other systems reviewed and are negative. [facility] 12-02-2023 Note Cardiovascular Medic [facility] SUBJECTIVE Chief Complaint Patient presents [...] had follow up for titration study. Seeing ORGANIC PREPARATION TECHNICIAN for night sweats, achy joints, issues with [...] sleep apnea 07/03/2023 CARLITO=9.5 events/hour; Leroy SpO2=84%; Bkpqwn=773.0 lbs; BMI=35.7 kg/m2, Home Sleep Apnea Testing on 07/01/2023 at [facility] Family History Problem Relation Name Age [...] tachycardia) (CMS/HCC) Elevated blood pressure reading PAF -[id number] = 1 (female) -Dr. Ramirez noted a [...] 06/01/2024). Susanne Paz NP [facility]TP Cardiovascular Medicine [facility] 11-23-2023 Instructions Kristy Evangelista MD - [...] usual activities immediately. documented in this encounter [facility] 11-23-2023 History of Present illness Narrative 58 year old yo W [facility] .No primary care provider on file. 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 Last mammo 4-6 wks at [facility]. BONE: Denies H OP/fx. No PMH OP/non [...] Kristy Evangelista M.D.,F.A.C.P. documented in this encounter [facility] 11-23-2023 Note HNO ID: [id number] Author: KRISTY EVANGELISTA MD Service: ? Author [...] lost both of her sisters spends time faith work grandkids and books on tape dogs [...] thinks lining was too thick TAHBSO at [facility] [place] had an TVUS and revealed [...] prior Bx. Last mammo 4-6 wks at [facility]. BONE: Denies FMH OP/fx. No PMH OP/non [...] atrial fibrillation (HC (more content not included)... [facility] 07-01-2023 Note Pt given verbal and written instructions and demo of HSAT device. Pt to return unit to registration 07/02 Quality of life Answer each question by shading in the [place] completely. Choose only one answer for each [...] 75 80 85 90 95 100 X [facility] 07-01-2023 Note [place] Sleepiness S alexey Please rate the following [...] Acting out your dreams... Difficulty ambulating... Incontinence... [facility] 05-26-2023 Note [facility] Consult Note Reason for visit: NSVT HPI: Essie Steele is a 58 y.o. year old with past medical history of A-fib RVR. She was admitted to [facility] with complaints of A-fib which was believed [...] Holter monitor Assessm (more content not included)... [facility] 03-30-2023 Note Patient here for [facility] per Ivon Paz CNP. She was seen [...] All other systems reviewed and are negative. [facility] 03-30-2023 Note [facility] Consult Note Reason for visit: HPI: Essie Steele is a 58 y.o. year old with past medical history of A-fib RVR. She was admitted to [facility] with complaints of A-fib, she had CT [...] on file Intimate Partner Violence: Unknown (03/30/2023) [place] Safety & Environment Fear of Current or [...] found for: CHOLES (more content not included)... [facility] 10-07-2022 Evaluation note Encounter Date Diagnosis Assessment Notes Sep, GERD without esophagitis (ICD-10 - K21.9) Sep, Irritable bowel syndrome with diarrhea (ICD-10 - K58.0) Sep, Other Patient still having diarrhea and cramping in the lower abd area. Patient reports having these episodes at least one time weekly. Patient can restart dicyclomine 20mg TID PRN. [facility] Other 07-07-2022 Evaluation note* Encounter Date Diagnosis Assessment Notes Treatment Notes Treatment Clinical Notes Aug, Crohns disease (ICD- 10 - K50.90) Aug, Viral gastroenteriti s (ICD-10 - A08.4) Continue prednisone as prescribed by PCP Start Cipro 500mg bid for 7 days Patient to call when she finished prednisone and cipro if symptoms do not improve. Follow up in 4 weeks. [facility] Other 06-01-2021 History general Narrative - Reported* Type Description Date Medical History Crohns disease Surgical History C section X2 Surgical History hysterectomy 07/2020 [facility] Other Evaluation noteNo Assessments [facility] Diagnosis Symptomatic menopausal or [...] unspecified, site unspecified [facility] Diagnosis Encounter for long-term (current) use of medications- Primary Encounter for long-term (current) use of other medications Crohn's disease of large intestine without complication (HCC) Regional enteritis of large intestine Arthritis Arthropathy, unspecified, site unspecified Enthesitis Enthesopathy of unspecified site Arthralgia, unspecified joint [facility] Diagnosis Symptomatic menopausal or female climacteric states [facility] Diagnosis Arthralgia, unspecified joint- Primary Enthesitis Enthesopathy of unspecified site Encounter for long-term (current) use of medications Encounter for long-term (current) use of other medications Carpal tunnel syndrome of left wrist Carpal tunnel syndrome Positive KAELA (antinuclear antibody) Other and unspecified nonspecific immunological findings documented in this encounter [facility] for referral (narrative)* Diagnostic Procedure Only (Routine) - Closed Specialty Diagnoses / Procedures Referred By Contac t Referred To Contact XR IMAGING Diagnoses Symptomatic menopausal or female climacteric states Procedures DXA-AXIAL SKELETON DXA BONE DENSITY STUDY 1/> SITES AXIAL Kristy Jacobson MD [address] [place] [address] Xr Imaging [facility] Referral ID Status Reason Start Date Expiration Date V isits Requested Visits Authorized [id number] Closed Auto-Generate d Referral 11/23/2023 12/22/2024 1 1 [facility] for visit Narrative* Diagnostic Procedure Only (Routine) - Closed Specialty Diagnoses / Procedures Referred By Contac t Referred To Contact XR IMAGING Diagnoses Symptomatic menopausal or female climacteric states Procedures DXA-AXIAL SKELETON DXA BONE DENSITY STUDY 1/> SITES AXIAL Kristy Jacobson MD [address] [place] [address] [place] [address] Referral ID Status Reason Start Date Expiration Date V isits Requested Visits Authorized [id number] Closed Auto-Generate d Referral 11/23/2023 12/22/2024 1 1 [facility] Summary Purpose Family History No Family History [...] COMPLEX 45 MINS Renny Baron MD [address] [phone] [facility] [place] [address] [place] [phone] Referral ID Status Reason Start Date Expiration Date Visits Requested Visits Authorized [id number] Pending Review Auto-Generat ed Referral 4 01/17/2025 1 1 Specialty Diagnoses / Procedures Referred By Contac t Referred To Contact XR IMAGING Diagnoses Arthritis Procedures XR SHOULDER LIMITED 2V AP/TRUE AP LEFT RADEX SHOULDER COMPLETE MINIMUM 2 VIEWS Renny Baron MD [address] [place] [address] X[facility] Imaging [facility] Referral ID Status Reason Start Date Expiration Date Visits Requested Visits Authorized [id number] New Request Auto-Generat ed Referral 4 02/16/2025 1 1 Specialty Diagnoses / Procedures Referred By Contac t Referred To Contact XR IMAGING Diagnoses Arthritis Procedures XR SHOULDER [id number] AP/TRUE AP RIGHT RADEX SHOULDER COMPLETE MINIMUM 2 VIEWS Renny Baron MD [address] [phone] X[facility] Imaging [facility] Referral ID Status Reason Start Date Expiration Date Visits Requested Visits Authorized [id number] New Request Auto-Generat ed Referral 4 02/16/2025 1 1 Specialty Diagnoses / Procedures Referred By Contac t Referred To Contact XR IMAGING Diagnoses Arthritis Procedures XR HAND 2V PA/LAT BILATERAL RADEX HAND 2 VIEWS Renny Baron MD [address] [phone] Xr Imaging [facility] Referral ID Status Reason Start Date Expiration Date Visits Requested Visits Authorized [id number] New Request Auto-Generat ed Referral 4 02/16/2025 1 1 Specialty Diagnoses / Procedures Referred By Contac t Referred To Contact XR IMAGING Diagnoses Arthritis Procedures XR SACROILIAC JOINTS 2V AP PELVIS/FERGUESON RADIOLOGIC EXAMINATION SACROILIAC JNTS <3 VIEWS Renny Baron MD [address] [phone] X[facility] Imaging [facility] Referral ID Status Reason Start Date Expiration Date Visits Requested Visits Authorized [id number] New Request Auto-Generat ed Referral 02/16/2025 1 1 Specialty Diagnoses / Procedures Referred By Contac t Referred To Contact Rheumatology Diagnoses Crohn's disease of large intestine without complication (HCC) Arthritis Procedures CONSULT TO RHEUM/IMMUN DISEASE OFFICE/OUTPATIENT NEW HIGH MDM 60 MINUTES Kristy Evangelista MD [address] [facility] [place] [phone] Referral ID Status Reason Start Date Expiration Date Visits Requested Visits Authorized [id number] Authorized PCP Requested Referral 11/23/2023 11/22/2024 1 1 Specialty Diagnoses / Procedures Referred By Contac t Referred To Contact XR IMAGING Diagnoses Symptomatic menopausal or female climacteric states Procedures DXA-AXIAL SKELETON DXA BONE DENSITY STUDY SITES AXIAL SKEL Kristy Evangelista MD [address] [place] [address] Xr Imaging [place] [address] Referral ID Status Reason Start Date Expiration Date Visits Requested Visits Authorized [id number] Authorized Auto-Generat ed Referral 11/23/2023 12/22/2024 1 1 Additional Source Comments INFORMATION SOURCE (unrecogn ized section and content) DATE CREATED AUTHOR 04/25/2018 [facility] DATE CREATED AUTHOR AUTHOR'S ORGANIZ ATION 04/04/2021 [facility] DATE CREATED AUTHOR AUTHOR'S ORGANIZ ATION 07/07/2022 [facility] DATE CREATED AUTHOR AUTHOR'S ORGANIZ ATION 09/26/2023 [facility] DATE CREATED AUTHOR AUTHOR'S ORGANIZ ATION 12/11/2023 [facility] DATE CREATED AUTHOR AUTHOR'S ORGANIZ ATION 02/10/2024 [facility] DATE CREATED AUTHOR AUTHOR'S ORGANIZ ATION 03/14/2024 [facility] REASON FOR VISIT (unrecogniz ed section and content) Reason Comments Joint Pain Specialty Diagnoses / Procedures Referred By Contac t Referred To Contact Rheumatology Diagnoses Crohn's disease of large intestine without complication (HCC) Arthritis Procedures CONSULT TO RHEUM/IMMUN DISEASE OFFICE/OUTPATIENT [facility] 60 MINUTES Kristy Evangelista MD [address] [place] [address] Referral ID Status Reason Start Date Expiration Date V isits Requested Visits Authorized [id number] Closed PCP Requested Referral 11/23/2023 11/22/2024 1 1 Reason Comments Joint Pain Reason Comments Refill Request Reason Onset Date Comments Refill Request 02/29/2024 Source Comments (unrecognize d section and content) In the event this informatio n is protected by the Federal Confidentiality of Alcohol and Drug Abuse Patient Records regulations: The Federal rules restrict any use of the information to criminally investigate or prosecute any alcohol or drug abuse patient.[facility] the event this information is protected by the Federal Confidentiality of Alcohol and Drug Abuse Patient Records regulations: The Federal rules restrict any use of the information to criminally investigate or prosecute any alcohol or drug abuse patient.[facility] the event this information is protected by the Federal Confidentiality of Alcohol and Drug Abuse Patient Records regulations: The Federal rules restrict any use of the information to criminally investigate or prosecute any alcohol or drug abuse patient.[facility] the event this information is protected by the Federal Confidentiality of Alcohol and Drug Abuse Patient Records regulations: The Federal rules restrict any use of the information to criminally investigate or prosecute any alcohol or drug abuse patient.[facility] the event this information is protected by the Federal Confidentiality of Alcohol and Drug Abuse Patient Records regulations: The Federal rules restrict any use of the information to criminally investigate or prosecute any alcohol or drug abuse patient.[facility] the event this information is protected by the Federal Confidentiality of Alcohol and Drug Abuse Patient Records regulations: The Federal rules restrict any use of the information to criminally investigate or prosecute any alcohol or drug abuse patient.[facility] Hospital[facility] the event this information is protected by the Federal Confidentiality of Alcohol and Drug Abuse Patient Records regulations: The Federal rules restrict any use of the information to criminally investigate or prosecute any alcohol or drug abuse patient.[facility] Hospital[facility] the event this information is protected by the Federal Confidentiality of Alcohol and Drug Abuse Patient Records regulations: The Federal rules restrict any use of the information to criminally investigate or prosecute any alcohol or drug abuse patient.[facility] Hospital[facility] the event this information is protected by the Federal Confidentiality of Alcohol and Drug Abuse Patient Records regulations: The Federal rules restrict any use of the information to criminally investigate or prosecute any alcohol or drug abuse patient.[facility] FOR RECORDS PERTAINING TO PATIENTS WHO [...] BE BASED ON THE PRIMARY CLINICAL RECORDS. [facility] Given.to [facility]. provides no warranty or guarantee of the accuracy or completeness of information in this document.
[2024-03-14 15:34] LABS: Basophils Absolute Auto 0.1 10^3/uL (0.0-0.1); Basophils Percent Auto 0.7 % (0.2-2.0); Eosinophils Absolute Auto 0.4 10^3/uL (0.0-0.7); Eosinophils Percent Auto 3.4 % (0.9-7.0); Hematocrit 41.1 % (36.0-48.0); Hemoglobin 13.1 g/dL (12.0-16.0); Immature Granulocytes Abs Auto 0.08 10^3/uL (0.00-0.03); Immature Granulocytes Pct Auto 0.6 % (0.0-0.5); Lymphocytes Absolute Auto 2.1 10^3/uL (1.2-3.8); Lymphocytes Percent Auto 15.9 % (20.5-60.0); Mean Corpuscular HGB Conc 31.9 g/dL (29.9-35.2); Mean Corpuscular Hemoglobin 24.9 pg (26.7-34.0); Mean Corpuscular Volume 78.1 fL (81.0-99.0); Mean Platelet Volume 10.2 fL (9.5-13.5); Monocytes Absolute Auto 1.1 10^3/uL (0.3-0.8); Monocytes Percent Auto 8.6 % (1.7-12.0); Neutrophils Absolute Auto 9.2 10^3/uL (1.4-6.5); Neutrophils Percent Auto 70.8 % (43.0-75.0); Platelet Count 276 10^3/uL (150-450); Red Blood Count 5.26 10^6/uL (4.20-5.40)
[2024-03-14 16:25] LABS: Internal Control Within Normal Limits; Mono Screen NEGATIVE (NEGATIVE)
[2024-03-14 16:28] LABS: Alanine Aminotransferase 26 U/L (14-59); Albumin Globulin Ratio 0.8; Albumin Level 3.5 g/dL (3.4-5.0); Alkaline Phosphatase 142 U/L (46-116); Anion Gap 13.1; Aspartate Amino Transferase 15 U/L (15-37); BUN Creatinine Ratio 18.3; Bilirubin Total 0.4 mg/dL (0.2-1.0); Carbon Dioxide 28.7 mmol/L (21.0-32.0); Chloride 102 mmol/L (98-107); Estimated GFR (African America >60 (>=60 mL/min/1.73m^2); Estimated GFR (Non-African Ame >60 (>=60 mL/min/1.73m^2); Globulin 4.2 g/dL; Glucose 92 mg/dL (74-106); Potassium 3.8 mmol/L (3.5-5.1); Sodium 140 mmol/L (136-145); Total Protein 7.7 g/dL (6.4-8.2)
== END 2024-03-14 15:19 | disposition home or self-care (01) ==
LOC: LAB 15:19
PROVIDERS: PCP Family Medicine; Visit Provider Family Medicine
DX: R06.00 Dyspnea, unspecified (principal)
CPT/HCPCS: 36415; 80053; 85025; 86308

== ENCOUNTER 2024-07-27 13:00 | Outpatient (OUT) | payer OTHER, SELFPAY ==
--- OUTSIDE RECORDS SUMMARY | 2024-07-22 11:13 | XMS_ITS | Continuity of Care Document ---
Author Organization [facility] Address [address] [place] [address] Phone Care Team Providers Care Greenhouse Manager Name Role Phone Brett Paniagua MD Primary Care Provider Philippe Wise MD Attending Provider Care Teams Patient Care Team Team Status: Active Member Role Status Rosy Paniagua MD Primary Care Provider Active Visit Care Team Team Status: Inactive Member Role Status Rosy Paniagua MD Primary Care Provider Active Start: July 19, 2024 End: July 19, 2024 Philippe Wise MD Attending Provider Active S tart: July 19, 2024 End: July 19, 2024 Visit Care Team Team Status: Inactive Member Role Status Rosy Paniagua MD Primary Care Provider Active Start: July 21, 2024 End: July 21, 2024 Philippe Wise MD Attending Provider Active S tart: July 21, 2024 End: July 21, 2024 Chief Complaint and Reason for Visit Chief Complaint Admit Date crohn's July 19, 2024 10:05 am k50.90 r32 July 21, 2024 3:08p m Reason for Visit Admit Date IBS (irritable bowel syndrome) July 19, 2024 10:05am Allergies, Adverse Reactions, Alerts Allergen Type Severity Reaction Last Updated Verified Status codeine Allergy Unknown Unknown Reaction July 19, 2024 10:08am Yes Active meperidine Allergy Unknown Vomiting July 19, 2024 10:08am Yes Active Social History Smoking Status Status Start Date End Date Date of Observa tion Ex-smoker (finding) June 222020 12:31pm Observation Status Observation Response Date of Response Patient Sex Female July 22, 2024 1 2:09am Assigned Sex Female December Family History Relationship Condition Age at Onset Recorded Date/T liza father Malignant neoplasm Unknown mother Chronic obstructive pulmonary disease Unk nown sister Malignant neoplasm of tongue Unknown father Unknown mother Unknown Problems Active Problems Medical Problem Onset Date Status Comments IBS (irritable bowel syndrome) Active Inactive/Resolved Problems Medical Problem Onset Date Status Comments Crohn's disease involving terminal ileum Resolved Problem List clean-u p per request of Phys. EHR Cmte GERD (gastroesophageal reflu x disease) Resolved Problem List clean-u p per request of Phys. EHR Cmte Medications Medication Status Dose Units Route Directions Qty Days St art Date Stop Date End Date Instructions Topiramate 100 mg tablet Discont inued 1 TAB PO Daily 2018 12:00a m July 19, 2024 10:14 am Fluticasone Propionate (Flonase Allergy Relief) 50 mcg/actuatio n [place] melissa Discont inued 1 SPRAY INTRAN CRISTINA Daily 2018 12:00a m July 19, 2024 10:13 am Loratadine (Claritin) 10 mg Tablet Active 10 MG PO Daily 2018 12:00a m Desvenlafaxi ne Succinate (Pristiq) 25 mg Tablet Extended Release 24 Hr Active 25 MG PO Daily 2018 12:00a m Mesalamine (Apriso) 0.375 gram capsule,exte nded release 24hr Discont inued 1.5 GM PO Daily 120 2018 12:00a m June 22, 2020 11:45 am Calcium Carbonate 600 mg calcium (1,500 mg) tablet Discont inued 600 MG PO As Directed June 22, 2020 12:00a m July 19, 2024 10:13 am Dicyclomine 20 mg tablet Active 20 MG PO As Directed June 22, 2020 12:00a m Pantoprazole 40 mg tablet,delay ed release (DR/EC) Active 40 MG PO Daily June 22, 2020 12:00a m Cholecalcife rol (Vitamin D3) 50 mcg (2,000 unit) tablet Discont inued 50 MCG PO As Directed June 22, 2020 12:00a m July 19, 2024 10:13 am Diltiazem Hcl 240 mg capsule,exte nded release 24hr Active MG PO July 19, 2024 12:00a m Aspirin (Adult Aspirin Regimen) 81 mg tablet,delay ed release (DR/EC) Active 81 MG PO Daily July 19, 2024 12:00a m Celecoxib 100 mg capsule Active 100 MG PO Daily July 19, 2024 12:00a m Lisinopril 10 mg tablet Active 10 MG PO Daily July 19, 2024 12:00a m Immunizations Immunization Event Date Not Given Reason Dose Number Etiquette Coach Lot Number Vaccine Information Statement (VIS) Detail COVID-19 mRNA-1273 (Moderna) April 04, 2020 COVID-19 mRNA-1273 (Moderna) March 07, 2020 Procedures Procedure Date Performed Status XR KUB July 21, 2024 3:10pm completed Relevant Diagnostic Tests and/or Laboratory Data Diagnostic Imaging Reports Author Alek Diaz [facility] Report Date/Time July 21, 2024 5:51p m [facility] [place] [address] XRay Report Signed Patient: Malu Erickson MR#: [id number] : 1965 Acct:[id number] Age/Sex: 59 / F ADM Date: 5 Loc: XD Room: Type: [facility] Attending Dr: Philippe Wise MD Copies to: Philippe Wise MD~ Ordering Provider: Philippe Wise MD Date of Service: 07/21/24 XR/XR KUB: K50.90 - Crohn's disease, unspecified, without complications KUB: CLINICAL INFORMATION: Crohn's disease, incontinence COMPARISON: None FINDINGS: Mild to moderate stool burden. No bowel obstruction. No radiopaque calcifications overlying the renal shadows. Pelvic phleboliths are within the left. Mild dextrocurvature of the lumbar spine with multilevel degenerative change. XR/XR KUB IMPRESSION: UNREMARKABLE INTESTINAL PATTERN. Impression dictated by: Alek Diaz M.D. 07/21/2024 5:51 PM Dictation Location: RADIO--29 Transcribed By: [facility] 07/21/241750 Dictated By: Alek Diaz MD 07/21/241749 Signed By: <Electronically signed by Alek Diaz MD in OV> 07/21/241750 Vital Signs Vital Reading Result Reference Range Collection Date/Time Height 67 [in_i] July 19, 2024 10:13am Weight 102.51 kg July 19, 2024 10:13am Heart Rate 65 /min 60-100 July 19, 2024 10:13am BP Systolic 116 mm[Hg] 100-140 July 19, 2024 10:13am BP Diastolic 75 mm[Hg] 60-100 July 19, 2024 10:13am BMI (Body Mass Index) 35.4 kg/m2 July 192024 10:13am Advance Directives Advance Directive Response Recorded Date/ Time Advance Directives No October 9:45am Insurance Providers Guarantor Malu Erickson Address [address] [place] [phone] Contact Info. Home Phone: Payer Policy Id Coverage Id Subscriber's Name Subscriber Id Effective Date Expiration Date Viet MARIE/SAQIB [employer] [id number] Bear Erickson [id number] Encounters Encounter Location(s) Arrival/Admit Date Discharge/Depart Date Provider(s) Departed Physician/Prov ider Office [facility] July 19, 2024 10:05am July 19, 2024 10:47am Philippe Wise MD Departed Clinical [facility] July 21, 2024 3:08pm July 21, 2024 3:09pm Philippe Wise MD Recent Diagnosis Onset Date Admit Date IBS (irritable bowel syndrome) M ay 2024 10:05am Assessments Diagnosis Onset Date Resolution Status Admit Date IBS (irritable bowel syndrome) acute July 19, 2024 10:05am Plan of Treatment Author Philippe Wise [facility] Authored July 19, 2024 1:51p m We will discontinue the dicy clomine 20 mg twice daily. Schedule KUB to evaluate for constipation and potentially overflow diarrhea. If this shows extensive stool burden then we will do full bowel prep cleanout and then start a polyethylene glycol based bowel regimen. If this shows no significant constipation then this is likely due to her IBS-D. We would recommend starting a fiber supplement for stool bulking. Follow-up with GI nurse practitioner in about 6 weeks. Future Tests Future scheduled test information is unavailable Pending Tests Pending diagnostic test information is unavailable Future Visits Future appointment information is unavailable Referrals to Other Providers Referral information is unavailable Future Procedures Future procedure information is unavailable Future Medications Future medication information is unavailable Patient Instructions Patient instructions are unavailable
--- OUTSIDE RECORDS SUMMARY | 2024-07-28 10:32 | XMS_ITS | Clinical Summary ---
Author Organization [facility] Address [address] [place], [place] [id number] Care Team Providers Care Apartment Leasing Specialist Name Role Phone Unavailable Primary Care Provider Unavailabl e Allergies Active Allergy Reactions Criticality Noted Date Comments Codeine GI Upset,Other: See Comments 019 Meperidine Unknown,Vomiting 06/22/2020 Medications aspirin, enteric coated (ASPIRIN, ENTERIC COATED) 81 mg EC tablet Take 81 mg by mouth. Active acetaminophen 325 mg-caffeine 40 mg-butalbital 50 mg (FIORICET) per tablet Take 1 tablet by mouth. 04/06/2017 Active desvenlafaxine ER (PRISTIQ) 100 mg 24 hr tablet Take 100 mg by mouth once daily. Active dicyclomine (BENTYL) 20 mg tablet as directed. 06/22/2020 Active dilTIAZem CD (CARDIZEM CD, CARTIA XT) 180 mg 24 hr capsule Take 180 mg by mouth every morning. Active fluticasone (FLONASE) 50 mcg/actuation nasal spray once daily. 11/02/2018 Activ e loratadine (CLARITIN) 10 mg tablet once daily. 11/02/[address] (PROTONIX) 40 mg tablet Take 1 tablet by mouth every 12 hours. 11/11/2023 Active celecoxib (CELEBREX) 100 mg capsule TAKE 1 CAPSULE BY MOUTH TWICE A DAY 60 capsule 1 02/29/2024 Active estradiol (VIVELLE-DOT) 0.0375 mg/24 hr patch Apply 1 Patch as directed two times a week. 30 Patch 1 03/01/2024 08/29/19 25 Active Active Problems Problem Noted Date Diagnosed Date Crohn's disease Social History Tobacco Use Types Packs/Day Years Used Date Smoking Tobacco: Never Smokeless Tobacco: Never Tobacco Cessation:Counseling Given: Not Answered Alcohol Use Standard Drinks/Week Comments Yes 0 (1 standard drink = 0.6 oz pur e alcohol) occ PHQ-2 Answer Date Recorded PHQ-2 score 2 01/17/2024 Area Deprivation Index Answer Date Cy rded National Score (1-100), lower number is lower ri sk 80 01/18/2024 State Score (1-10), lower number is lower risk 7 01/18/2024 Data from: https://www.neighborhoodatlas.medicine.[facility].edu/. Last address used for calculation [address] [facility] 01/18/2024 Comments No Sex and Gender Information Value Date Recorded Sex Assigned at Not on file Legal Sex Female 11:23 AM EDT Gender Identity Not on file Sexual Orientation Not on file Last Filed Vital Signs Vital Sign Reading Time Taken Comments Blood Pressure 153/100 01/18/2024 9:19 AM EST Pulse 68 01/18/2024 9:19 AM EST Temperature 36.2 C (97.2 F) 01/18/2024 9:19 AM EST Respiratory Rate - - Oxygen Saturation - - Inhaled Oxygen Concentration - - Weight 109.2 kg (240 lb 11.9 oz) 01/18/2024 9:19 AM EST Height 168.9 cm (5' 6.5 ) 01/18/2024 9:19 AM EST Body Mass Index 38.27 01/18/2024 9:19 AM EST Plan of Treatment Health Maintenance Due Date Last Done Comments Anxiety Screening 01/17/1984 Depression Screening 01/17/1984 HIV Screening 01/17/1984 DTaP,Tdap,Td Vaccine (1 - Tdap) [address] Colonography 2011 Cologuard (FIT-DNA) 2011 Colonoscopy 2011 Colorectal Cancer Screening 2011 Fecal Occult Blood 2011 Lipid Screening 2011 Sigmoidoscopy 2011 Pneumococcal Vaccine: 50+ (1 of 1 - PCV) 01/17/2016 Shingrix Vaccine (1 of 2) 01/17/2016 Cervical Cancer Screening 04/12/2021 04/12/2018 Covid-19 Vaccine ( season) 10/25/202311/2020, 03/07/2020 Influenza Vaccine (Season Ended) 2024 12/07/19 16 Diabetes Screening 01/17/2027 01/18/2024 Hepatitis C Screening Completed 01/18/2024, 024 Procedures Procedure Name Priority Date/Time Associated Diagnosis Comments HEPATITIS C ANTIBODY IA WITH CONFIRMATION Routine 01/18/2024 11:32 AM EST Encounter for long-term (current) use of medications COMPREHENSIVE METABOLIC PANEL Routine 01/18/2024 11:32 AM EST Arthritis Encounter for long-term (current) use of medications from Last 3 Months or Most Recently Relevant to Health Maintenance Results * (ABNORMAL) COMPREHENSIVE METABOLIC PANEL (01/18/2024 11:32 AM EST) Protein, Total 7.3 6.3 - 8.0 g/dL 01/18/2024 8:14 PM EST [facility] Albumin 4.4 3.9 - 4.9 g/dL 01/18/2024 8:14 PM EST [facility] Calcium, Total 9.2 8.5 - 10.2 mg/dL 01/18/2024 8:14 PM EST [facility] Bilirubin, Total 0.4 0.2 - 1.3 mg/dL 01/18/2024 8:14 PM EST [facility] Alkaline Phosphatase 148(H) 34 - 123 U/L 01/18/2024 8:14 PM EST [facility] AST 25 13 - 35 U/L 01/18/2024 8:14 PM EST [facility] ALT 20 7 - 38 U/L 01/18/2024 8:14 PM EST [facility] Glucose 91 74 - 99 mg/dL 01/18/2024 8:14 PM EST [facility] Comment: The [place] Diabetes Association (ADA) provides guidance for cutoff [...] Standards of Medical Care in Diabetes 2016, [place] [employer] Association. Diabetes Care. 2016.39(Suppl 1). BUN 12 7 - 21 mg/dL 01/18/2024 8:14 PM EST [facility] Creatinine 0.59 0.58 - 0.96 mg/dL 01/18/2024 8:14 PM EST [facility] Sodium 140 136 - 144 mmol/L 01/18/2024 8:14 PM EST [facility] Potassium 3.7 3.7 - 5.1 mmol/L 01/18/2024 8:14 PM EST [facility] Chloride 102 98 - 107 mmol/L 01/18/2024 8:14 PM EST [facility] CO2 26 22 - 30 mmol/L 01/18/2024 8:14 PM EST [facility] Anion Gap 12 8 - 15 mmol/L 01/18/2024 8:14 PM EST [facility] Estimated Glomerular Filtration Rate 105 >=60 mL/min/1.7 3m 01/18/2024 8:14 PM EST [facility] Comment:Estimated Glomerular Filtration Rate (eGFR) is calculated using the 2020 CKD-EPI creatinine equation. This equation utilizes serum creatinine, sex, and age as parameters. The creatinine assay has traceable calibration to isotope dilution- mass spectrometry. Refer to KDIGO guidelines for clinical interpretation. In patients with unstable renal function, e.g. those with acute kidney injury, the eGFR may not accurately reflect actual GFR. Blood BLOOD SPECIMEN / Unknown Venipuncture / Unknown 01/18/2024 11:32 AM EST 01/18/2024 11:33 AM EST us Renny Baron MD LABORATORY Final Result [facility] [address] [id number], * HEPATITIS C ANTIBODY IA WITH CONFIRMATION (01/18/2024 11:32 AM EST) Hep C Antibody IA Negative Negative 01/18/2024 6:12 PM EST [facility] Comment:The result suggests no evidence of active infection with Hepatitis C virus. Should recent infection be suspected, repeat testing may be considered 4-6 weeks after this draw. Blood BLOOD SPECIMEN / Unknown Venipuncture / Unknown 01/18/2024 11:32 AM EST 01/18/2024 11:33 AM EST us Renny Baron MD LABORATORY Final Result [facility] [place] [address], from Last 3 Months or Most Recently Relevant to Health Maintenance Insurance [employer]
--- OUTSIDE RECORDS SUMMARY | 2024-07-28 10:32 | XMS_ITS | Clinical Summary ---
Author Organization [facility] Address [address] [place] [address] Care Team Providers Care Heel Seat Filler Name Role Phone Brett Paniagua MD Primary Care Provider [phone] Allergies Active Allergy Reactions Criticality Noted Date Comments Codeine GI intolerance 09/24/2023 Medications desvenlafaxine (Pristiq) 100 MG 24 hr tablet Take 100 mg by mouth Daily Active pantoprazole (ProtoNix) 40 MG EC tablet Take 40 mg by mouth in the morning and 40 mg before bedtime. Active aspirin 81 MG EC tablet Take 81 mg by mouth Daily Active Multiple Vitamins-Minera ls (CENTRUM SILVER PO) Take 1 tablet by mouth Daily Active celecoxib (CeleBREX) 100 MG capsule Take 100 mg by mouth in the morning and 100 mg before bedtime. 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 Encounters Date Type Department Care Team Description 05/05/2024 2:15 PM EDT Office Visit [facility] [address] [place] [address] Wolf Medley MD Well woman exam with routine gynecological exam; Cervical cancer screening; Screening for HPV (human papillomavirus) 05/05/2024 Bamboo flowsheet [facility] [address] [place] [address] Wolf Medley MD 05/05/2024 Travel from Last 3 Months Family History Medical History Relation Name Comments Cancer Father Heart disease Maternal Grandmother Hypertension Maternal Grandmother COPD Mother Neck cancer Sister Tongue cancer Sister Relation Name Status Comments Father Maternal Grandmother Mother Sister Social History Tobacco Use Types Packs/Day Years Used Date Smoking Tobacco: Former Cigarettes Smokeless Tobacco: Never Alcohol Use Standard Drinks/Week Comments Yes 2 (1 standard drink = 0.6 oz pure alcohol) wine or beer - a couple per month Comments No Sex and Gender Information Value Date Recorded Sex Assigned at Not on file Legal Sex Female 8:05 PM EDT Gender Identity Not on file Sexual Orientation Not on file Last Filed Vital Signs Vital Sign Reading Time Taken Comments Blood Pressure 134/86 05/05/2024 2:25 PM EDT Pulse 65 09/24/2023 9:46 AM EDT Temperature 36.8 C (98.2 F) 09/24/2023 9:46 AM EDT Respiratory Rate - - Oxygen Saturation - - Inhaled Oxygen Concentration - - Weight 97.1 kg (214 lb) 05/05/2024 2:25 PM EDT Height 170.2 cm (5' 7 ) 08/20/2018 12:00 PM EDT Body Mass Index 33.52 08/20/2018 12:00 PM EDT Plan of Treatment Health Maintenance Due Date Last Done Comments CT Colonography 1966 Colonoscopy 1966 Colorectal Cancer Screening 1966 FIT-DNA 1966 FIT 1966 FOBT 1966 Sigmoidoscopy 1966 Mammogram 2006 Pap Smear 04/12/2021 04/12/2018, 03/26, 04/06/2017 Influenza Vaccine (Season Ended) 2024 Cervical Cancer Screening 05/05/2029 HPV/Cotest 05/05/2029 05/05/2024 Procedures Procedure Name Priority Date/Time Associated Diagnosis Comments IGP, APT HPV,RFX 16/18,45 Routine 05/05/2024 12:00 AM EDT Cervical cancer screening Screening for HPV (human papillomavirus) from Last 3 Months Results * IGP, APT HPV,RFX 16/18,45 (05/05/2024 12:00 AM EDT) Diagnosis: Comment [facility] Comment:NEGATIVE FOR INTRAEP ITHELIAL LESION OR MALIGNANCY. Specimen Adequacy: Comment [facility] Comment: Satisfactory for evaluation. Endocervical and/or squamous metaplastic cells (endocervical component) are present. Clinician Provided ICD10: Comment [facility] Comment: Z12.4 Z11.51 Performed By: Comment [facility] Comment:Phillip Saleem Cytote chnologist (ASC) Cyto Comments . [facility] Note: Comment [facility] Comment: The Pap smear is a screening test designed to aid in the detection of premalignant and malignant conditions of the uterine cervix. It is not a diagnostic procedure and should not be used as the sole means of detecting cervical cancer. Both false-positive and false-negative reports do occur. Test Methodology: CANCELED [facility] Comment: The Thin Prep(R) Sourcing Engineer was unable to read this specimen. Therefore a manual review was performed. Result canceled by the ancillary. HPV Aptima Negative Negative [facility] Comment: This nucleic acid amplification test detects fourteen high-risk HPV types (16,18,31,33,35,39,45,51,52,56,58,59,66,68) without differentiation. Vaginal Fluid 05/05/2024 05/06/2024 Narrative [facility] - 05/10/2024 1:07 PM EDT Performed at: - [address], [place] [id number] [employer]uckle Strap Sewer: Ghada Melo MD, Phone: [phone] Performed at: - [address] [id number] Knuckle Strap Sewer: Ghada Melo MD, Phone: [phone] Specimen Comment: No. of containers..01 ThinPrep Vial us Wolf Medley MD LAB BLOOD ORDERABLES Edited Re sult - Final [facility] from Last 3 Months Insurance [employer] Care Teams Heel Seat Filler Relationship Specialty Start Date End Date Brett Paniagua MD PCP - General Family Medicine 09/24/23
--- OUTSIDE RECORDS SUMMARY | 2024-07-28 10:32 | XMS_ITS | Encounter Summary ---
Author Organization [facility] Address [address] [place] [address] Care Team Providers Care School Child Care Attendant Name Role Phone Brett Paniagua MD Primary Care Provider [phone] Reason for Visit * Reason Comments Medication Refill Encounter Details Date Type Department Care Team (Late st Contact Info) Description 03/18/2017 Refill [facility] [employer] [address] [place] [phone] Arian Herrera MD [address] [facility] [address] [place] [address] Medication Refill Social History Tobacco Use Types Packs/Day Years Used Date Smoking Tobacco: Never Alcohol Use Standard Drinks/Week Comments Yes 0 (1 standard drink = 0.6 oz pur e alcohol) Comments No Sex and Gender Information Value Date Recorded Sex Assigned at Not on file Legal Sex Female 6:49 PM EST Gender Identity Not on file Sexual Orientation Not on file documented as of this encounter Plan of Treatment Not on file documented as of this encounter Visit Diagnoses Diagnosis Menstrual migraine without status migrainosus, not intractable Menstrual migraine, without mention of intractable migraine without mention of status migrainosus documented in this encounter Care Teams School Child Care Attendant Relationship Specialty Start Date End Date Brett Paniagua MD [address] [place] [address] PCP - General Family Medicine 04/06/17 documented as of this encounter
--- OUTSIDE RECORDS SUMMARY | 2024-07-28 10:32 | XMS_ITS | Encounter Summary ---
Author Organization [facility] Address [facility] [place] [address] Care Team Providers Care Station Tender Name Role Phone Unavailable Primary Care Provider Unavailabl e Source Comments In the event this information is protected by the Federal Confidentiality of Alcohol and Drug AbusePatient Records regulations: The Federal rules restrict any use of the information to criminally investigate or prosecute any alcohol or drug abuse patient.[facility] Encounter Details Date Type Department Care Team (Late st Contact Info) Description 01/14/2024 Patient [facility] [place] [id number] Julita Washington RPh At your next appointment, choose [facility]. Social History Tobacco Use Types Packs/Day Years Used Date Smoking Tobacco: Never Smokeless Tobacco: Never Alcohol Use Standard Drinks/Week Comments Yes 0 (1 standard drink = 0.6 oz pur e alcohol) occ PHQ-2 Answer Date Recorded PHQ-2 score 2 01/17/2024 Area Deprivation Index Answer Date Cy rded National Score (1-100), lower number is lower ri sk 80 01/18/2024 State Score (1-10), lower number is lower risk 7 01/18/2024 Data from: https://www.neighborhoodatlas.medicine.[facility]/. Last address used for calculation [address] [facility] 01/18/2024 Comments No Sex and Gender Information Value Date Recorded Sex Assigned at Not on file Legal Sex Female 11:23 AM EDT Gender Identity Not on file Sexual Orientation Not on file documented as of this encounter Plan of Treatment Not on file documented as of this encounter Visit Diagnoses Not on filedocumented in this encounter
--- OUTSIDE RECORDS SUMMARY | 2024-07-28 10:32 | XMS_ITS | Encounter Summary ---
Author Organization [facility] Address [address] [place] [address] Care Team Providers Care Search Consultant Name Role Phone Unavailable Primary Care Provider Unavailabl e Source Comments In the event this information is protected by the Federal Confidentiality of Alcohol and Drug AbusePatient Records regulations: The Federal rules restrict any use of the information to criminally investigate or prosecute any alcohol or drug abuse patient.[facility] Reason for Referral * Consult, Test, Treat (Routine) - Authorized Specialty Diagnoses / Procedures Referred By Contac t Referred To Contact INTERNAL MEDICINE Diagnoses Elevated blood pressure reading without diagnosis of hypertension Procedures ESTABLISH WITH PRIMARY CARE NEW PATIENT OFFICE/OUTPATIENT [facility] 60 MINUTES Zachary Miller MD [address] [place] [address] Phone: tel: fax: Internal Medicine [address] [address] Phone: tel: Referral ID Status Reason Start Date Expiration Date Visits Requested Visits Authorized [id number] Authorized PCP Requested Referral 02/29/2024 02/28/2025 1 1 Reason for Visit * Reason Comments Patient Update Encounter Details Date Type Department Care Team (Late st Contact Info) Description 02/29/2024 Telephone [facility] [address], [place] [address] Zachary Miller MD [address] [place] [address] Patient Update Social History Tobacco Use Types Packs/Day Years [...] is lower risk 7 01/18/2024 Data from: https://www.neighborhoodatlas.medicine.[facility].edu/. Last address used for calculation [address] [facility] 01/18/2024 Comments No Sex and Gender Information Value Date Recorded Sex Assigned at Not on file Legal Sex Female 11:23 AM EDT Gender Identity Not on file Sexual Orientation Not on file documented as of this encounter Miscellaneous Notes * Telephone Encounter - Julian Lu - 03/08/2024 11:00 AM EST Called no answer left vm and sent my chart message * Telephone Encounter - Zachary Miller MD - 02/29/2024 9:11 PM EST received request for estradiol patch problem is that her blood pressure is very high on latest check higher than when at last visit w me she needs an dean visit w her pcp to follow that up if she has no pcp need this to be controlled before refill it Please relay this to pt. Thanks Zachary Miller M.D.,F.A.C.P. documented in this encounter Plan of Treatment Not on file documented as of this encounter Visit Diagnoses Diagnosis Elevated blood pressure reading without diagnosis of hypertension- Primary documented in this encounter
--- OUTSIDE RECORDS SUMMARY | 2024-07-28 10:32 | XMS_ITS | Encounter Summary ---
Author Organization [facility] Address [address] [place] [address] Care Team Providers Care Rock Crushing Machine Operator Name Role Phone Unavailable Primary Care Provider Unavailabl e Source Comments In the event this information is protected by the Federal Confidentiality of Alcohol and Drug AbusePatient Records regulations: The Federal rules restrict any use of the information to criminally investigate or prosecute any alcohol or drug abuse patient.[facility] Encounter Details Date Type Department Care Team (Late st Contact Info) Description 03/09/2024 Get Medical Advice [facility] [address] [place] [address] Zachary Miller MD [address] [place] [address] BP Social History Tobacco Use Types Packs/Day Years [...] is lower risk 7 01/18/2024 Data from: https://www.neighborhoodatlas.[place].edu/. Last address used for calculation [address] [facility] 01/18/2024 Comments No Sex and Gender Information Value Date Recorded Sex Assigned at Not on file Legal Sex Female 11:23 AM EDT Gender Identity Not on file Sexual Orientation Not on file documented as of this encounter Plan of Treatment Not on file documented as of this encounter Visit Diagnoses Not on filedocumented in this encounter
--- OUTSIDE RECORDS SUMMARY | 2024-07-28 10:32 | XMS_ITS | Encounter Summary ---
Author Organization [facility] Address [address] [place] [address] Care Team Providers Care Lead Machinist Name Role Phone Unavailable Primary Care Provider Unavailabl e Source Comments In the event this information is protected by the Federal Confidentiality of Alcohol and Drug AbusePatient Records regulations: The Federal rules restrict any use of the information to criminally investigate or prosecute any alcohol or drug abuse patient.[facility] Encounter Details Date Type Department Care Team (Late st Contact Info) Description 03/24/2024 Patient Msg Navigate [facility] [place] [address] [place] [address] Provider, Dennise Establish with primary care Social History Tobacco Use Types Packs/Day Years [...] risk 7 01/18/2024 Data from: https://www.neighborhoodatlas.medicine.[facility].edu/. Last address used for calculation [address] [facility] 01/18/2024 Comments No Sex and Gender Information Value Date Recorded Sex Assigned at Not on file Legal Sex Female 11:23 AM EDT Gender Identity Not on file Sexual Orientation Not on file documented as of this encounter Plan of Treatment Not on file documented as of this encounter Visit Diagnoses Not on filedocumented in this encounter
--- OUTSIDE RECORDS SUMMARY | 2024-07-28 10:32 | XMS_ITS | Encounter Summary ---
Author Organization [facility] Address [facility] [place] [address] Care Team Providers Care Microsoft Architect Name Role Phone Unavailable Primary Care Provider Unavailabl e Source Comments In the event this information is protected by the Federal Confidentiality of Alcohol and Drug AbusePatient Records regulations: The Federal rules restrict any use of the information to criminally investigate or prosecute any alcohol or drug abuse patient.[facility] Encounter Details Date Type Department Care Team (Late st Contact Info) Description 03/08/2024 Patient [facility] [place], [place] [id number] Provider, [facility] Internal medicine Social History Tobacco Use Types Packs/Day Years [...] is lower risk 7 01/18/2024 Data from: https://www.neighborhoodatlas.medicine.[facility].edu/. Last address used for calculation [address] [facility] 01/18/2024 Comments No Sex and Gender [...]
--- OUTSIDE RECORDS SUMMARY | 2024-07-28 10:32 | XMS_ITS | Clinical Summary ---
Author Organization [facility] Address [address] [place] [place] [address] Care Team Providers Care Project Control Officer Name Role Phone Brett Paniagua MD Primary Care Provider [phone] Allergies No known active allergies Medications Loratadine (CLARITIN) 10 MG CAPS Take by mouth. Activ e ibuprofen (ADVIL;MOTRIN) 600 MG tablet Take 600 mg by mouth every 6 hours as needed for Pain. Active diclofenac (VOLTAREN) 75 MG EC tablet 7 Active topiramate (TOPAMAX) 100 MG tablet TAKE 1 TABLET BY MOUTH EVERY DAY 11 8 Active butalbital-aceta minophen-caffein e (FIORICET, ESGIC) 50-325-40 MG per tabletIndication s:Menstrual migraine without status migrainosus, not intractable Take 1 tablet by mouth every 4 hours as needed for Headaches 50 tablet 3 8 Active desvenlafaxine succinate (PRISTIQ) 100 MG TB24 extended release tablet TAKE 1 TABLET BY MOUTH EVERY DAY 11 9 Active clobetasol (TEMOVATE) 0.05 % creamIndications :Vulvar irritation Apply topically 2 times daily. 1 Tube 1 0 Active Active Problems No known active problems Immunizations Immunization Administration Dates Next Due Influenza Vaccine, unspecified formulation 12/06 Family History Medical History Relation Name Comments Hypertension Mother Cancer Sister Tongue Relation Name Status Comments Mother Sister Social History Tobacco Use Types [...] Sign Reading Time Taken Comments Blood Pressure 122/76 12/12/2019 12:53 PM EDT Pulse 78 12/12/2019 12:53 PM EDT Temperature - - Respiratory Rate 16 12/12/2019 12:53 PM EDT Oxygen Saturation - - Inhaled Oxygen Concentration - - Weight 86.6 kg (191 lb) 12/12/2019 12:53 PM EDT Height 170.2 cm (5' 7 ) 05/10/2018 9:56 AM EDT Body Mass Index 29.91 05/10/2018 9:56 AM EDT Plan of Treatment Not on file Insurance AENA AETNA AETNA Care Teams Project Control Officer Relationship Specialty Start Date End Date Brett Paniagua MD [address] [phone] PCP - General Family Medicine 04/06/17
--- OUTSIDE RECORDS SUMMARY | 2024-07-28 10:33 | XMS_ITS | Encounter Summary ---
Author Organization [facility] Address [address] [place] [address] Care Team Providers Care Cell Room Operator Name Role Phone Unavailable Primary Care Provider Unavailabl e Source Comments In the event this information is protected by the Federal Confidentiality of Alcohol and Drug AbusePatient Records regulations: The Federal rules restrict any use of the information to criminally investigate or prosecute any alcohol or drug abuse patient.[facility] Encounter Details Date Type Department Care Team (Late st Contact Info) Description 02/02/2024 Patient Msg Rheumatology [address] [phone] Renny Baron MD [address] [phone] xrays Social History Tobacco Use Types Packs/Day Years [...] is lower risk 7 01/18/2024 Data from: https://www.neighborhoodatlas.[facility].edu/. Last address used for calculation [address] [facility] 01/18/2024 Comments No Sex and Gender [...]
--- OUTSIDE RECORDS SUMMARY | 2024-07-28 10:33 | XMS_ITS | Referral Summary ---
Author Organization [facility] Address [address] [place] [address] Care Team Providers Care School Lunch Monitor Name Role Phone Brett Paniagua MD Primary Care Provider [phone] Encounters Date Type Department Care Team Description 06/24/2024 11:40 AM EDT Office Visit [facility] [address] [place] [address] Felipe Burger MD Paroxysmal atrial fibrillation (CMS/HCC) (Primary Dx); Benign hypertensive heart disease without congestive heart failure; Mixed hyperlipidemia; Obstructive sleep apnea; Class 2 obesity due to excess calories without serious comorbidity with body mass index (BMI) of 35.0 to 35.9 in adult from Last 3 Months Allergies Active Allergy Reactions Criticality Noted Date Comments Codeine 03/30/2023 Meperidine Unknown 05/26/2023 Medications Medication Sig Dispensed Refills Start Date End Date Status desvenlafaxine (Pristiq) 100 mg 24 hr tablet 100 mg 1 (one) time each day. 03/10/2023 Active pantoprazole (ProtoNix) 40 mg EC tablet TAKE 1 TABLET BY MOUTH TWICE A DAY FOR 30 DAYS 03/10/2023 Active dilTIAZem CD (Cardizem CD) 180 mg 24 hr capsuleIndications:P aroxysmal atrial fibrillation (CMS/HCC) Take 1 capsule (180 mg) by mouth in the morning. 30 capsule 11 03/30/2023 Active Additional Information Patient taking differently: 240 mgoral Daily, Reported on 06/24/2024 aspirin 81 mg EC tablet Take 81 mg by mouth in the morning. Active celecoxib (CeleBREX) 100 mg capsule Take 100 mg by mouth twice a day. 02/29/2024 Active ondansetron ODT (Zofran-ODT) 4 mg disintegrating tablet Take 4 mg by mouth every 8 (eight) hours if needed. 04/22/2024 Active Imitrex 100 mg tablet Take 100 mg by mouth 1 (one) time if needed. 03/31/2024 Active lisinopril 10 mg tabletIndications:Be nign hypertensive heart disease without congestive heart failure Take 1 tablet (10 mg) by mouth once daily as directed. 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 024 Gastroesophageal reflux disease 09/24/2023 Obstructive sleep apnea 07/03/2023 07/01/19 Overview (07/03/2023): CARLITO=9.5 events/hour; Leroy SpO2=84%; Vlhgeh=674.0 lbs; BMI=35.7 kg/m2, Home Sleep Apnea Testing on 07/01/2023 at [facility] Atrial fibrillation 03/04/2023 Essential hypertension 06/12/2022 Social History Tobacco Use Types Packs/Day Years Used Date Smoking Tobacco: Former Cigarettes Smokeless Tobacco: Never Tobacco Cessation:Counseling Given: Not Answered Alcohol Use Standard Drinks/Week Comments Yes 0 (1 standard drink = 0.6 oz pur e alcohol) occasional [place] Safety & Environment Answer Date Rec orded Fear of Current or Ex-Partner Not on file Emotionally Abused Not on file 04/17/2023 Physically Abused Not on file 04/17/2023 Sexually Abused Not on file 04/17/2023 Physically or Sexually Abused Not on file Sex and Gender Information Value Date Recorded Sex Assigned at Not on file Gender Identity Not on file Sexual Orientation Not on file Last Filed Vital Signs Vital Sign Reading Time Taken Comments Blood Pressure 135/90 06/24/2024 12:19 PM EDT Pulse 60 06/24/2024 12:19 PM EDT Temperature - - Respiratory Rate 12 05/26/2023 10:07 AM EDT Oxygen Saturation 98% 06/24/2024 12:19 PM EDT Inhaled Oxygen Concentration - - Weight 103 kg (226 lb) 06/24/2024 12:19 PM EDT Height 170.2 cm (5' 7 ) 06/24/2024 12:19 PM EDT Body Mass Index 35.4 06/24/2024 12:19 PM EDT Plan of Treatment Not on file Care Teams School Lunch Monitor Relationship Specialty Start Date End Date Brett Paniagua MD [address] [facility] [address] PCP - General 03/30/23
--- OUTSIDE RECORDS SUMMARY | 2024-07-28 10:33 | XMS_ITS | Encounter Summary ---
Author Organization [facility] Address [address] [place] [address] Care Team Providers Care Candy Puller Name Role Phone Unavailable Primary Care Provider Unavailabl e Source Comments In the event this information is protected by the Federal Confidentiality of Alcohol and Drug AbusePatient Records regulations: The Federal rules restrict any use of the information to criminally investigate or prosecute any alcohol or drug abuse patient.[facility] Reason for Visit * Reason Comments Received Outside Medical Records Encounter Details Date Type Department Care Team (Late st Contact Info) Description 02/02/2024 Telephone Rheumatology [address] [phone] Renny Baron MD [address] [phone] Received Outside Medical Records Social History Tobacco Use Types Packs/Day Years [...] is lower risk 7 01/18/2024 Data from: https://www.neighborhoodatlas.medicine.[facility].edu/. Last address used for calculation [address] 01/18/2024 Comments No Sex and Gender Information Value Date Recorded Sex Assigned at Not on file Legal Sex Female 11:23 AM EDT Gender Identity Not on file Sexual Orientation Not on file documented as of this encounter Miscellaneous Notes * Telephone Encounter - Kori Banks RN - 02/02/2024 2:52 PM EST Received x-ray reports from 01/27/2024. Thank you. Scan on 02/02/2024 1:53 PM by Provider, KALI Prakash: X-ray * Telephone Encounter - Sindy Hebert - 02/02/2024 2:43 PM EST Received XR report from [facility] collected on 01/26. Scanned for review. XR sacroilinc joint WILMA XR shoulder WILMA min 2v documented in this encounter Plan of Treatment Not on file documented as of this encounter Visit Diagnoses Not on filedocumented in this encounter
--- OUTSIDE RECORDS SUMMARY | 2024-07-28 10:33 | XMS_ITS | Clinical Summary ---
Author Organization [facility] Address [address] [place] [address] Care Team Providers Care Cigarette Maker Name Role Phone Brett Paniagua MD Primary Care Provider [phone] Allergies Active Allergy Reactions Criticality Noted Date [...] 07/01/19 Overview (07/03/2023): CARLITO=9.5 events/hour; Leroy SpO2=84%; Jitxnf=318.0 lbs; BMI=35.7 kg/m2, Home Sleep Apnea Testing on 07/01/2023 at [facility] Atrial fibrillation 03/04/2023 Essential hypertension 06/12/2022 Encounters Date Type Department Care Team Description 06/24/2024 11:40 AM EDT Office Visit [facility] Heart at [address] [phone] Felipe Burger MD Paroxysmal atrial fibrillation (CMS/HCC) (Primary Dx); Benign hypertensive heart disease without congestive heart failure; Mixed hyperlipidemia; Obstructive sleep apnea; Class 2 obesity due to excess calories without serious comorbidity with body mass index (BMI) of 35.0 to 35.9 in adult from Last 3 Months Family History Medical History Relation Name Comments Cancer Father Hypertension Maternal Grandmother COPD Mother Heart attack Mother's Brother Relation Name Status Comments Father Maternal Grandmother Mother Mother's Brother Sister Alive Social History Tobacco Use Types Packs/Day Years [...] 06/24/2024 12:19 PM EDT Plan of Treatment Health Maintenance Due Date Last Done Comments CT Colonography 1966 Colonoscopy 1966 Colorectal Cancer Screening 1966 FIT-DNA 1966 FIT 1966 FOBT 1966 Sigmoidoscopy 1966 Depression Screening 1978 Hepatitis B Vaccines (1 of 3 - 19+ 3-dose series) 1985 Adult Tetanus 01/17/1988 HPV/Cotest 01/17/1996 Mammogram 2006 Zoster Vaccines (1 of 2) 01/17/2016 Cervical Cancer Screening 04/12/2021 Pap Smear 04/12/2021 04/12/2018 COVID-19 Vaccine (3 - 2023-2 5 season) 2023 04/04/2020, 03/07/2020 Influenza Vaccine (Season Ended) 2024 HIB Vaccines Aged Out No longer eligi ble based on patient's age to complete this topic HPV Vaccines Aged Out No longer eligi ble based on patient's age to complete this topic IPV Vaccines Aged Out No longer eligi ble based on patient's age to complete this topic Meningococcal B Vaccine Aged Out No l onger eligible based on patient's age to complete this topic Meningococcal Vaccine Aged Out No april alyssia eligible based on patient's age to complete this topic Pneumococcal Vaccine: Pediatrics (0 to 5 Years) and At-Risk Patients (6 to 64 Years) Aged Out No longer eligible b ased on patient's age to complete this topic Rotavirus Vaccines Aged Out No longer eligible based on patient's age to complete this topic Care Teams Cigarette Maker Relationship Specialty Start Date End Date Brett Paniagua MD [address] [facility] [place] [address] [address] PCP - General 03/30/23
== END 2024-07-27 13:01 | disposition home or self-care (01) ==
LOC: SLEEP 07-28 10:30
PROVIDERS: PCP Internal Medicine; Visit Provider Internal Medicine
DX: G47.33 Obstructive sleep apnea (adult) (pediatric) (principal); G47.11 Idiopathic hypersomnia with long sleep time
CPT/HCPCS: 95806

== ENCOUNTER 2024-08-16 19:47 | Outpatient (OUT) | payer OTHER, SELFPAY ==
--- OUTSIDE RECORDS SUMMARY | 2024-06-28 04:22 | XMS_ITS ---
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 Phone KAYY PANIAGUA Primary Care Provider Benji Paniagua [phone] REASON FOR VISIT celebrex Medications Medication SIG (Take, Route, Fr equency, Duration) Notes Start Date End Date Status Celecoxib 100 MG 1 capsule with food Oral bid for 30 days Active Encounters Encounter Location Date Provider Diagnosis [facility] [address] [place] [address] 06/28/2024 Benji Paniagua Plan Of Treatment Medication Medication Name Sig Start Date Stop Date Notes Celecoxib 100 MG 1 capsule with food Oral bid for 30 days Next Appt Details Provider Name:Owen Busby, 10/12/2024 08:30:00 AM, [address] [place], [address], Progress Notes * Malu STEELEDOB: 6 (59 yo F)Acc No.[id number]:06/28/2024 Patient: Malu ROMANO :1965 A ge:59 Y S ex:Female Address:[address] [place] [address], [address] * Refills Refill Celecoxib Capsule, 100 MG, Oral, 60 Capsule, 1 capsule with food, bid, 30 days, Refills=11 * true * Date: Generated for Printi ng/Faxing/Yuly on: 0 08/16/2024 07:49 PM EDT
--- OUTSIDE RECORDS SUMMARY | 2024-06-29 06:17 | XMS_ITS ---
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
--- OUTSIDE RECORDS SUMMARY | 2024-07-20 04:00 | XMS_ITS ---
Author Organization [facility] in [place] Address [address] [place] [address] Care Team Providers Care Trouble Clerk Name Role Phone KAYY PANIAGUA Primary Care Provider [phone] Owen Busby [phone] Allergies Allergen (clinical drug ingredient) Drug/Non Drug Allergy documented on EMR Reaction Allergy Type Onset Date Status meperidine Demerol vomiting Drug Allergy Active REASON FOR VISIT LOAN Medications Medication SIG (Take, Route, Frequency, Duration) Notes Start Date End Date Status dilTIAZem HCl ER Coated Beads 240 MG 1 capsule Orally Once a day for 30 days Active Ondansetron 4 MG 1 tablet on the tong ue and allow to dissolve Orally Q 6 hours PRN nausea PRN Active Pantoprazole Sodium 40 MG 1 tablet Orall y BID for 30 days Active Imitrex 100 MG 1 tablet at least 2 hours between doses as needed Orally Once a day 03/31/2024 Active Lisinopril 10 MG Oral for 21 Days Active Aspirin 81 81 MG 1 tablet Orally Once a day Active Celecoxib 100 MG 1 capsule with food Oral bid for 30 days Active Dicyclomine HCl 20 MG 1 tablet Orally Th ree times a day PRN Active Centrum Adults - as directed Orally Active Desvenlafaxine Succinate ER 100 MG TAKE 1 TABLET BY MOUTH EVERY DAY FOR 30 DAYS for 90 Active Social History Tobacco Use: Social History Observation Description Date Details (start date - stop date) Former Smoker NA - NA Tobacco Control (Standard) Question Answer Notes Tobacco use: Former smoker How long has it been since y ou last smoked? Greater than 10 years Additional Findings: Tobacco non-user Ex -moderate cigarette smoker (10-19/day) Problems Problem Type SNOMED Code ICD Code Onset Dates Problem Status W/U Status Risk Notes Problem Obstructive sleep apnea syndrome (05841698) LOAN (obstructive sleep apnea) (G47.33) Active confirmed Problem Atrial fibrillation (37965249) PAF (paroxysmal atrial fibrillation ) (I48.0) Active confirmed Problem Obesity (596821891) Obesity (E66.9) Active confirmed Vital Signs Weight 229.4 lbs 07/20/2024 Height 67 in 07/20/2024 Blood pressure systolic 127 mm Hg 07/21/19 25 Blood pressure diastolic 84 mm Hg 025 Temperature 96.6 degrees Fahrenheit 07/21/19 25 Heart Rate 67 /min 07/20/2024 Respiratory Rate 16 /min 07/20/2024 BMI 35.93 kg/m2 07/20/2024 Oximetry 96 % 07/20/2024 Procedures Procedure Date Ordered Date Performed Result Body Sit e Home Sleep Study (Apnea [facility] Plus) 07/20/2024 N /A Encounters Encounter Location Date Provider Diagnosis [facility] [place] [address] [place] [address] 07/20/2024 Owen Busby LOAN (obstructive sleep apnea) G47.33 ; PAF (paroxysmal atrial fibrillation) I48.0 and Obesity E66.9 Assessments Encounter Date Diagnosis (ICD Code) Assessment Notes Treatment Notes Treatment Clinical Notes Section Notes 07/20/2024 LOAN (obstructive sleep apnea) (ICD-10 - G47.33) HST 07/01/2023: CARLITO 9.5 Patient has documented mild LOAN. She remains symptomatic as described in HPI and ROS. She voiced she is ready for treatment and accepts PAP therapy as an option. Unfortunately, her HST is now just over 1 year old and no longer acceptable to approve for treatment. She voiced she is interested in treatment and is willing to repeat the HST. As LOAN is mild, I feel repeating a HST is acceptable over an attended PSG (unless insurance deems otherwise). If HST does not show LOAN, there remains a very high clinical suspicion for LOAN and will then order an attended PSG - patient voiced understanding of this. If she continues to have mild LOAN, then I would order an autoCPAP [id number]. If more severe, will order attended titration study. Explained minimum compliance is 70% of all nights >4 hours. She will need to return in 30-90 days to document compliance. Discussed different mask types. She voiced she would like [facility] as her DME. 07/20/2024 PAF (paroxysmal atrial fibrillation) (ICD-10 - I48.0) Discussed relationship with untreated LAON and PAF. 07/20/2024 Obesity (ICD-10 - E66.9) Discussed weight loss - any weight loss can potentially help LOAN, and treatment of LOAN can also aid in weight loss. Zepbound is approved for LOAN, but only for [id number] LOAN, so she would not currently qualify for it. She was encouraged to increase activity and monitor caloric intake. Plan Of Treatment Treatment Notes Assessment Notes LOAN (obstructive sleep apnea) HST 07/01/2023: CARLITO 9.5 Patient has documented mild LOAN. She remains symptomatic as described in HPI and ROS. She voiced she is ready for treatment and accepts PAP therapy as an option. Unfortunately, her HST is now just over 1 year old and no longer acceptable to approve for treatment. She voiced she is interested in treatment and is willing to repeat the HST. As LOAN is mild, I feel repeating a HST is acceptable over an attended PSG (unless insurance deems otherwise). If HST does not show LOAN, there remains a very high clinical suspicion for LOAN and will then order an attended PSG - patient voiced understanding of this. If she continues to have mild LOAN, then I would order an autoCPAP [id number]. If more severe, will order attended titration study. Explained minimum compliance is 70% of all nights >4 hours. She will need to return in 30-90 days to document compliance. Discussed different mask types. She voiced she would like [facility] as her DME. PAF (paroxysmal atrial fibrillation) Discussed relationship with untreated LOAN and PAF. Obesity Discussed weight loss - any weight loss can potentially help LOAN, and treatment of LOAN can also aid in weight loss. Zepbound is approved for LOAN, but only for [id number] LOAN, so she would not currently qualify for it. She was encouraged to increase activity and monitor caloric intake. Pending Test Test Name Order Date Home Sleep Study (Apnea Link Plus) 07/20 Next Appt Details Follow Up: 3 Months, Reason: LOAN/PAP compliance Provider Name:Owen Busby, 10/12/2024 08:30:00 AM, [address] [place], [address], Progress Notes * Malu STEELEDOB: 6 (59 yo F)Acc No.[id number]:07/20/2024 New Patient Patient: Malu ROMANO Provider: Latonia Busby DO :1965 A ge:59 Y S ex:Female Date:07/20/2024 Address:[address] [place] [id number] Pcp:Benji Paniagua Check In:07:59 AM ESTCheck O ut:08:46 AM EST Subjective: * Chief Complaints: * O SA * HPI: E pworth Sleepiness Scale: NEW PATIENT 59yo female referred from [facility] Cardiology for LOAN. The patient has a history of paroxysmal atrial fibrillation. A HST was done 07/01/2023 which noted mild LOAN with an CARLITO 9.5. An auto-CPAP was recommended by the interpreting physician. The patient did not follow up up on this for several months until she was referred here intially on 12/02/2023. She was scheduled for an appointment 03/02/2024, being unable to make it to an earlier appointment offered to her. She then canceled the day of her 03/02/2024 appointment stating her dog was having a seizure, and said she would contact the office to reschedule. The patient was lost to F/U. This office was then contacted on 06/29/2024 by [facility] Cardiology with the patient claiming our office never reached out to her. [facility] Cardiology was informed of the prior cancellation d/t a seizing dog and that the patient would reschedule at a later date, which never happened. The patient was contacted by this office and scheduled for today's visit, which she is here. She voiced she is ready to be treated for LOAN. We discussed what LOAN is and its relationship with cardiovascular disease, which she has PAF and HTN. She remains symptomatic with poor sleep quality, daytime hypersomnolence which she takes daily naps, and morning headaches. We discussed treatments for mild LOAN including oral appliances, surgery (e.g. uvulopalatopharyngoplasty (UP3), and PAP therapy). Unfortunately, as her HST is just over 1 year old, it is disqualified and she will need to repeat testing. MA Intake Comments:. Bridport Sleepiness Scale C aye of dozing while sitting and reading:?2 - Moderate Chance C aye of dozing while watching TV: 2 - Moderate Chance C aye of dozing while sitting in a public place: 1 - Slight Chance C aye of dozing as a passenger in a car for an hour without a break: 2 - Moderate Chance C aye of dozing while lying down in the afternoon to rest: 3 - High Chance C aye of dozing while sitting and talking to someone: 0 - Never C aye of dozing while sitting quietly after lunch: 1 - Slight Chance C aye of dozing in a stopped car for a few minutes in traffic: 0 - Never T OTAL SCORE: 1 1 Patient is referred from [facility] Cardiology for LOAN. Patient had a HST performed. Patient complains of hypersomnia, fatigue, headaches, irritability, weight gain, hypertension & frequent wakings. Patient is not currently on PAP therapy. S TOP-BANG Sleep Apnea Questionnaire: STOP D o you SNORE loudly (louder than talking or loud enough to be heard through closed doors)? N o D o you often feel TIRED, fatigued, or sleepy during daytime? Y es H as anyone OBSERVED you stop breathing during your sleep? N o D o you have or are you being treated for high blood PRESSURE? Y es BANG B TN more than 35kg/m2? Y es A GE over 50 years old? Y es N TUNG circumference > 16 inches (40cm)??Yes G KENDAL: Male? N o Total Score: Y es 5-8 High risk of LOAN. * ROS: G eneral/Constitutional: Fever or sweats d enies. C hange of appetite d enies. C hills d enies. W eight Change d enies. S leep: Snoring a dmits. I nsomnia a dmits. A wakening due to snorting or gasping d enies. A wakening due to pain d enies.?Awakening due to urination 1 -2 times. W itnessed apneas D ocumented with HST 07/01/2023 - CARLITO 9.5. F eeling refreshed upon awakening brain fog . D aytime hypersomnia n aps daily. C ardiovascular: Tachycardia d enies. E manuel D enies. C hest pain d enies. P alpitations d enies. R espiratory: Chest tightness d enies. P leurisy D enies. D yspnea d enies. C ough d enies. H emoptysis d enies. W heezing d enies.? G astrointestinal: Acid Reflux/GERD/Heartburn d enies. D ysphagia d enies. M usculoskeletal: Arthralgias/joint pain D enies. S kin: Easy bruising d enies. R sherri d enies. ? N eurologic: Headache d aily in the mornings. S eizures d enies. T remor d enies. H ematology: Abnormal Bleeding d enies. P sychiatric: Anxiety d enies. * Active Problem List E66.9 Obesity Modified On:07/20/2024U Status:confirmed I48.0 PAF (paroxysmal atri al fibrillation) Modified On:07/20/2024U Status:confirmed G47.33 LOAN (obstructive sle ep apnea) Modified On:07/20/2024U Status:confirmed J30.2 Allergic rhinitis, s easonal Modified On:06/11/2022U Status:confirmed D64.9 Anemia Modified On:07/14/2022U Status:confirmed K50.90 Crohn disease Modified On:06/11/2022U Status:confirmed M50.30 Degenerative disc di sease, cervical Modified On:06/11/2022U Status:confirmed I10 Essential hypertensi on Modified On:04/23/2023U Status:confirmed K21.9 Gastro-esophageal re flux disease Modified On:06/11/2022U Status:confirmed M85.80 Osteopenia Modified On:04/19/2023W/U Status:confirmed L72.3 Sebaceous cyst Modified On:03/11/2024W/U Status:confirmed * Medical History: * Surgical History: T otal Hysterectomy EGD and Colonoscopy * Hospitalization/Major Diagno stic Procedure: D enies Past Hospitalization * Family History: F ather: , diagnosed with Other malignant neoplasm of unspecified site. M other: , chronic obstructive pulmonary disease. S ister(s): alive, diagnosed with Other malignant neoplasm of unspecified site. S on(s): alive. D meeta(s): alive. 2 sister(s) . 1 son(s) , 3 daughter(s) - healthy. . * Social History: T obacco Use: T obacco Control (Standard) T obacco use: F ormer smoker H ow long has it been since you last smoked??Greater than 10 years A dditional Findings: Tobacco non-user E x-moderate cigarette smoker (10-19/day) Electronic Cigarette use C urrent user N o LM: Additional Tobacco Questions N umber of Years Pt Smoked: 2 0 N umber of Packs per Day: . 5 When did you stop smokin years ago. 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 D rugs/Alcohol: D rugs H ave you used drugs other than those for medical reasons in the past 12 months? N o D oes the Patient have a History of Drug Abuse in the Past? N o Caffeine I ntake: 1 -2 cups per day Coffee/Diet Pepsi Do you drink alcohol?: Yes, Socially. Do you smoke marijuana?: Denies. * Medications: T akingAspirin 81(Aspirin) 81 MG Tablet Delayed Release 1 tablet Orally Once a day Celecoxib 100 MG Capsule 1 capsule with food Oral bid Centrum Adults(Multiple Vitamins-Minerals) - Tablet as directed Orally Desvenlafaxine Succinate ER 100 MG Tablet Extended Release 24 Hour TAKE 1 TABLET BY MOUTH EVERY DAY FOR 30 DAYS Dicyclomine HCl 20 MG Tablet 1 tablet Orally Three times a day , Notes to Pharmacist: PRNdilTIAZem HCl ER Coated Beads 240 MG Capsule Extended Release 24 Hour 1 capsule Orally Once a day Imitrex(SUMAtriptan Succinate) 100 MG Tablet 1 tablet at least 2 hours between doses as needed Orally Once a day Lisinopril 10 MG Tablet Oral Ondansetron 4 MG Tablet Disintegrating 1 tablet on the tongue and allow to dissolve Orally Q 6 hours PRN nausea , Notes to Pharmacist: PRNPantoprazole Sodium 40 MG Tablet Delayed Release 1 tablet Orally BID Taking Aspirin 81(Aspirin) 81 MG Tablet Delayed Release 1 tablet Orally Once a day Taking Celecoxib 100 MG Capsule 1 capsule with food Oral bid Taking Centrum Adults(Multiple Vitamins-Minerals) - Tablet as directed Orally Taking Desvenlafaxine Succinate ER 100 MG Tablet Extended Release 24 Hour TAKE 1 TABLET BY MOUTH EVERY DAY FOR 30 DAYS Taking Dicyclomine HCl 20 MG Tablet 1 tablet Orally Three times a day , Notes to Pharmacist: PRNTaking dilTIAZem HCl ER Coated Beads 240 MG Capsule Extended Release 24 Hour 1 capsule Orally Once a day Taking Imitrex(SUMAtriptan Succinate) 100 MG Tablet 1 tablet at least 2 hours between doses as needed Orally Once a day Taking Lisinopril 10 MG Tablet Oral Taking Ondansetron 4 MG Tablet Disintegrating 1 tablet on the tongue and allow to dissolve Orally Q 6 hours PRN nausea , Notes to Pharmacist: PRNTaking Pantoprazole Sodium 40 MG Tablet Delayed Release 1 tablet Orally BID DiscontinuedAmoxicillin-Pot Clavulanate 875-125 MG Tablet 1 tablet Orally every 12 hrs Diflucan(Fluconazole) 100 MG Tablet 1 tablet Orally daily Estradiol 0.0375 MG/24HR Patch Twice Weekly Transdermal Nurtec(Rimegepant Sulfate) 75 MG Tablet Disintegrating 1 tablet on the tongue and allow to dissolve Orally Nystatin 837965 UNIT/GM Cream 1 application Externally bid - tid Medication List reviewed and reconciled with the patientDiscontinued Amoxicillin-Pot Clavulanate 875-125 MG Tablet 1 tablet Orally every 12 hrs Discontinued Diflucan(Fluconazole) 100 MG Tablet 1 tablet Orally daily Discontinued Estradiol 0.0375 MG/24HR Patch Twice Weekly Transdermal Discontinued Nurtec(Rimegepant Sulfate) 75 MG Tablet Disintegrating 1 tablet on the tongue and allow to dissolve Orally Discontinued Nystatin [id number] UNIT/GM Cream 1 application Externally bid - tid Medication List reviewed and reconciled with the patient * Allergies: D emerol: vomiting - Criticality Highno[Allergies Verified] Objective: * Vitals: W t:229.4lbs, Ht: 67 in, BP:sittin/84mm Hg, Temp:Forehead:96.6F, HR:67/min, RR:16/min, BMI:35.93Index, Oxygen sat %:Room Air:96%, Ht-cm: 170.18 cm, Wt-k.06 kg. * Examination: E xam: GENERAL APPEARANCE: A ppears stated age. Skin N ormal. Mouth P ink and moist. Oropharynx M allampati Class III. Macroglossia. Trachea M idline. Chest N ormal. Respiratory Normal M ovements, E ffort N ormal. Auscultation N ormal breath sounds. Cardiac R egular rate and rhythm. Gastrointestinal N ormal. Vascular N o edema. Musculoskeletal N ormal posture. Neurological F ocal, intact. Psychiatric A lert and oriented x3. Mentation/Cognition N ormal. Assessment: * Assessment: 1. O SA (obstructive sleep apnea) - G47.33 (Primary) 2 . P AF (paroxysmal atrial fibrillation) - I48.0 3 . O besity - E66.9 Plan: * Treatment: 2. P AF (paroxysmal atrial fibrillation) Notes: Discussed relationship with untreated LOAN and PAF. 3. O besity Notes: Discussed weight loss - any weight loss can potentially help LOAN, and treatment of LOAN can also aid in weight loss. Zepbound is approved for LOAN, but only for [id number]-[id number] LOAN, so she would not currently qualify for it. She was encouraged to increase activity and monitor caloric intake. ? * Procedure Codes: * Preventive Medicine: COVID Vaccination: H as patient had COVID Vaccination? COVID Vaccination Y es 04/04/2020 Immunization Status: I nfluenza P t Refused. Screenings/Counseling: F ALL RISK SCREENING Fall Risk Assessment: N o falls in the past year Are you afraid of falling? N o T OBACCO ACTION PLAN Patient counselled on the dangers of tobacco use and urged to quit. 0 07/20/2024 Former Education on smoking effects provided?07/20/2024 Former F MERLENE EXCLUSION Reason: P atient Reason refused/declined Type of Patient Reason: D rug declined by patient B TN ACTION PLAN Above Normal BMI Follow-up D ietary management education, guidance, and counseling * Follow Up: 3 Months (Reason: LOAN/PAP compliance) * * Sign off status: Completed Visit Status: C HK (Check Out) true * Provider: Latonia Busby, DO Date: 0 07/20/2024 Generated for Naima maurice/Gisele/Nikoleitting on: 0 08/16/2024 07:50 PM EDT History and Physical Notes * HPI (History of Present Illness) Category Sub-Category Detail Notes Category Not es STOP-BANG Sleep Apnea Questionnaire STOP Do you SNORE loudly (louder than talking or loud enough to be heard through closed doors)?: No Do you often feel TIRED, fatigued, or sl eepy during daytime?: Yes Has anyone OBSERVED you stop breathing d uring your sleep?: No Do you have or are you being treated for high blood PRESSURE?: Yes BANG BMI more than 35kg/m2?: Yes AGE over 50 years old?: Yes NECK circumference > 16 inches (40cm)?: Yes GENDER: Male?: No Total Score: Yes 5-8 High risk of LOAN Brid[place] Sleepiness Scale Brid[place] Sleepiness Scale Chance of dozing while sitting and reading:: 2 - Moderate Chance Patient is referred from [facility] Cardiology for LOAN. Patient had a HST performed. Patient complains of hypersomnia, fatigue, headaches, irritability, weight gain, hypertension & frequent wakings. Patient is not currently on PAP therapy. Chance of dozing while watching TV:: 2 - Moderate Chance Chance of dozing while sitting in a publ ic place:: 1 - Slight Chance Chance of dozing as a passen alyssia in a car for an hour without a break:: 2 - Moderate Chance Chance of dozing while lying down in the afternoon to rest:: 3 - High Chance Chance of dozing while sitting and talki ng to someone:: 0 - Never Chance of dozing while sitting quietly a fter lunch:: 1 - Slight Chance Chance of dozing in a stopped car for a few minutes in traffic:: 0 - Never TOTAL SCORE:: 11 Examination Category Sub-Category Detail Notes Category Not es Exam GENERAL APPEARANCE: Appears stated age Skin Normal Mouth [place] and moist Trachea Midline Chest Normal Respiratory Normal Movements, Ef fort Normal Auscultation Normal breath sounds Cardiac Regular rate and rhy thm Gastrointestinal Normal Vascular No edema Musculoskeletal Normal posture Neurological Focal, intact Psychiatric Alert and oriented x 3 Mentation/Cognition Normal Oropharynx Mallampati Class III . Macroglossia
--- OUTSIDE RECORDS SUMMARY | 2024-08-16 19:50 | XMS_ITS | Clinical Summary ---
Author Organization [facility] Address [address] [place] [address] Care Team Providers Care Care Center Manager Name Role Phone Brett Paniagua MD Primary Care Provider [phone] Allergies No known active allergies Medications Loratadine [...] file Insurance AENA AETNA AETNA Care Teams Care Center Manager Relationship Specialty Start Date End Date Brett Paniagua MD [address] [phone] PCP - General Family Medicine 04/06/17
--- OUTSIDE RECORDS SUMMARY | 2024-08-16 19:50 | XMS_ITS | Encounter Summary ---
Author Organization [facility] Address [address] [place] [address] Care Team Providers Care Gymnastics Coach Or Instructor Name Role Phone Unavailable Primary Care Provider Unavailabl e Source Comments In the event this information is protected by the Federal Confidentiality of Alcohol and Drug AbusePatient Records regulations: The Federal rules restrict any use of the information to criminally investigate or prosecute any alcohol or drug abuse patient.[facility] Reason for Visit * Reason Comments Received Outside Medical Records Encounter Details Date Type Department Care Team (Late st Contact Info) Description 02/02/2024 Telephone Rheumatology [address] [phone] Renny Baron MD [address] [phone] Received Outside Medical Records Social History Tobacco [...] is lower risk 7 01/18/2024 Data from: https://www.neighborhoodatlas.medicine.[facility].edu/. Last address used for calculation [address] [...] 2:43 PM EST Received XR report from [facility] collected on 01/26. Scanned for review. XR sacroilinc joint WILMA XR shoulder WILMA min 2v documented in this encounter Plan of Treatment Not on file documented as of this encounter Visit Diagnoses Not on filedocumented in this encounter
--- OUTSIDE RECORDS SUMMARY | 2024-08-16 19:50 | XMS_ITS | Encounter Summary ---
Author Organization [facility] Address [facility] [place] [address] Care Team Providers Care Street Sprinkler Name Role Phone Unavailable Primary Care Provider Unavailabl e Source Comments In the event this information is protected by the Federal Confidentiality of Alcohol and Drug AbusePatient Records regulations: The Federal rules restrict any use of the information to criminally investigate or prosecute any alcohol or drug abuse patient.[facility] Encounter Details Date Type Department Care Team (Late st Contact Info) Description 01/14/2024 Patient [facility] [place] [address] Julita Washington RPh At your next appointment, choose [facility]. Social History Tobacco Use Types Packs/Day [...] is lower risk 7 01/18/2024 Data from: https://www.neighborhoodatlas.medicine.[facility]/. Last address used for calculation [address] [facility] 01/18/2024 Comments No Sex and Gender Information Value Date Recorded Sex Assigned at Not on file Legal Sex Female 11:23 AM EDT Gender Identity Not on file Sexual Orientation Not on file documented as of this encounter Plan of Treatment Not on file documented as of this encounter Visit Diagnoses Not on filedocumented in this encounter
--- OUTSIDE RECORDS SUMMARY | 2024-08-16 19:50 | XMS_ITS | Encounter Summary ---
Author Organization [facility] Address [address] [place] [address] Care Team Providers Care Laborer Plumbing Name Role Phone Brett Paniagua MD Primary Care Provider [phone] Reason for Visit * Reason Comments Medication Refill Encounter Details Date Type Department Care Team (Late st Contact Info) Description 03/18/2017 Refill [facility] [address] [place] [phone] Arian Herrera MD [address] [facility] [address] [place] [address] Medication Refill Social History Tobacco [...] migrainosus documented in this encounter Care Teams Laborer Plumbing Relationship Specialty Start Date End Date Brett Paniagua MD [address] [place] [address] PCP - General Family Medicine 04/06/17 documented as of this encounter
--- OUTSIDE RECORDS SUMMARY | 2024-08-16 19:50 | XMS_ITS | Referral Summary ---
Author Organization [facility] Address [address] [place] [address] Care Team Providers Care Environmental Health Safety Engineer Name Role Phone Brett Paniagua MD Primary Care Provider [phone] Encounters Date Type Department Care Team Description 06/24/2024 11:40 AM EDT Office Visit [facility] [address] [place] [address] Felipe Burger MD Paroxysmal atrial fibrillation (CMS/HCC) (Primary Dx); Benign hypertensive heart disease without congestive heart failure; Mixed hyperlipidemia; Obstructive sleep apnea; Class 2 obesity due to excess calories without serious comorbidity with body mass index (BMI) of 35.0 to 35.9 in adult from Last 3 Months Allergies Active Allergy Reactions Criticality Noted Date Comments Codeine 03/30/2023 Meperidine Unknown 05/26/2023 Medications desvenlafaxine (Pristiq) 100 mg 24 hr tablet 100 mg 1 (one) time each day. 03/10/19 24 Active pantoprazole (ProtoNix) 40 mg EC tablet TAKE 1 TABLET BY MOUTH TWICE A DAY FOR 30 DAYS 03/10/19 24 Active dilTIAZem CD (Cardizem CD) 180 mg 24 hr capsuleIndications :Paroxysmal atrial fibrillation (CMS/HCC) Take 1 capsule (180 mg) by mouth in the morning. 30 capsule 11 03/30/19 24 Active Additional Information Patient taking differently: 240 mgoral Daily, Reported on 06/24/2024 aspirin 81 mg EC tablet Take 81 mg by mouth in the morning. Active celecoxib (CeleBREX) 100 mg capsule Take 100 mg by mouth twice a day. 01/06/20 25 Active ondansetron ODT (Zofran-ODT) 4 mg disintegrating tablet Take 4 mg by mouth every 8 (eight) hours if needed. 04/22/19 25 Active Imitrex 100 mg tablet Take 100 mg by mouth 1 (one) time if needed. 03/31/19 25 Active lisinopril 10 mg tabletIndications: Benign hypertensive heart disease without congestive heart failure Take 1 tablet (10 mg) by mouth once daily as directed. 90 tablet 3 06/25/19 25 026 Active Active Problems Problem Noted Date Diagnosed [...] disease 09/24/2023 Obstructive sleep apnea 07/03/2023 07/01/19 24 Overview (07/03/2023): CARLITO=9.5 events/hour; Leroy SpO2=84%; Bzkgjz=537.0 lbs; BMI=35.7 kg/m2, Home Sleep Apnea Testing on 07/01/2023 at [facility] Atrial fibrillation 03/04/2023 Essential hypertension 06/12/2022 Social [...] Physically or Sexually Abused Not on file Comments Unknown Sex and Gender Information Value Date Recorded Sex Assigned at Not on file Legal Sex Female 12:15 PM EST Gender Identity Not on file [...] Plan of Treatment Not on file Insurance [employer] Care Teams Environmental Health Safety Engineer Relationship Specialty Start Date End Date Brett Paniagua MD [address] [facility] [place] [phone] PCP - General 03/30/23
--- OUTSIDE RECORDS SUMMARY | 2024-08-16 19:50 | XMS_ITS | Encounter Summary ---
Author Organization [facility] Address [address] [place] [address] Care Team Providers Care Sign Writer Letterer Or Painter Name Role Phone Unavailable Primary Care Provider Unavailabl e Source Comments In the event this information is protected by the Federal Confidentiality of Alcohol and Drug AbusePatient Records regulations: The Federal rules restrict any use of the information to criminally investigate or prosecute any alcohol or drug abuse patient.[facility] Encounter Details Date Type Department Care Team (Late st Contact Info) Description 02/02/2024 Patient Msg Rheumatology [address] [phone] Renny Baron MD [address] [phone] xrays Social History Tobacco Use Types Packs/Day [...] is lower risk 7 01/18/2024 Data from: https://www.neighborhoodatlas.[facility].edu/. Last address used for calculation [address] [facility] 01/18/2024 Comments No Sex and Gender [...]
--- OUTSIDE RECORDS SUMMARY | 2024-08-16 19:50 | XMS_ITS | Encounter Summary ---
Author Organization [facility] Address [address] [place] [address] Care Team Providers Care District Extension Service Agent Name Role Phone Unavailable Primary Care Provider Unavailabl e Source Comments In the event this information is protected by the Federal Confidentiality of Alcohol and Drug AbusePatient Records regulations: The Federal rules restrict any use of the information to criminally investigate or prosecute any alcohol or drug abuse patient.[facility] Encounter Details Date Type Department Care Team (Late st Contact Info) Description 03/24/2024 Patient Msg Navigate [facility] [address] [place] [address] Provider, Dennise Establish with primary care Social [...] is lower risk 7 01/18/2024 Data from: https://www.neighborhoodatlas.medicine.[facility].edu/. Last address used for calculation [address] [facility] 01/18/2024 Comments No Sex and Gender [...]
--- OUTSIDE RECORDS SUMMARY | 2024-08-16 19:50 | XMS_ITS | Encounter Summary ---
Author Organization [facility] Address [address] [place] [address] Care Team Providers Care Radiological Metallurgist Name Role Phone Unavailable Primary Care Provider Unavailabl e Source Comments In the event this information is protected by the Federal Confidentiality of Alcohol and Drug AbusePatient Records regulations: The Federal rules restrict any use of the information to criminally investigate or prosecute any alcohol or drug abuse patient.[facility] Reason for Referral * Consult, Test, Treat (Routine) - Authorized Specialty Diagnoses / Procedures Referred By Contac t Referred To Contact INTERNAL MEDICINE Diagnoses Elevated blood pressure reading without diagnosis of hypertension Procedures ESTABLISH WITH PRIMARY CARE NEW PATIENT OFFICE/OUTPATIENT [facility] 60 MINUTES Zachary Miller MD [address] [place] [address] Phone: tel: fax: Internal Medicine [address] [address] Phone: tel: Referral ID Status Reason Start Date Expiration Date Visits Requested Visits Authorized [id number] Authorized PCP Requested Referral 02/29/2024 02/28/2025 1 1 Reason for Visit * Reason Comments Patient Update Encounter Details Date Type Department Care Team (Late st Contact Info) Description 02/29/2024 Telephone [facility] [address], [place] [address] Zachary Miller MD [address] [place] [address] Patient Update Social History Tobacco Use Types [...] is lower risk 7 01/18/2024 Data from: https://www.neighborhoodatlas.medicine.[facility].edu/. Last address used for calculation [address] [facility] 01/18/2024 Comments No Sex and Gender [...]
--- OUTSIDE RECORDS SUMMARY | 2024-08-16 19:50 | XMS_ITS | Clinical Summary ---
Author Organization [facility] Address [address] [place], [place] [id number] Care Team Providers Care Flanging Machine Operator Name Role Phone Unavailable Primary [...] is lower risk 7 01/18/2024 Data from: https://www.neighborhoodatlas.medicine.[facility].edu/. Last address used for calculation [address] [facility] 01/18/2024 Comments No Sex and Gender [...] - 8.0 g/dL 01/18/2024 8:14 PM EST [facility] Albumin 4.4 3.9 - 4.9 g/dL 01/18/2024 8:14 PM EST [facility] Calcium, Total 9.2 8.5 - 10.2 mg/dL 01/18/2024 8:14 PM EST [facility] Bilirubin, Total 0.4 0.2 - 1.3 mg/dL 01/18/2024 8:14 PM EST [facility] Alkaline Phosphatase 148(H) 34 - 123 U/L 01/18/2024 8:14 PM EST [facility] AST 25 13 - 35 U/L 01/18/2024 8:14 PM EST [facility] ALT 20 7 - 38 U/L 01/18/2024 8:14 PM EST [facility] Glucose 91 74 - 99 mg/dL 01/18/2024 8:14 PM EST [facility] Comment: The [place] Diabetes Association (ADA) provides guidance for cutoff [...] Standards of Medical Care in Diabetes 2016, [place] [employer]. Diabetes Care. 2016.39(Suppl 1). BUN 12 7 - 21 mg/dL 01/18/2024 8:14 PM EST [facility] Creatinine 0.59 0.58 - 0.96 mg/dL 01/18/2024 8:14 PM EST [facility] Sodium 140 136 - 144 mmol/L 01/18/2024 8:14 PM EST [facility] Potassium 3.7 3.7 - 5.1 mmol/L 01/18/2024 8:14 PM EST [facility] Chloride 102 98 - 107 mmol/L 01/18/2024 8:14 PM EST [facility] CO2 26 22 - 30 mmol/L 01/18/2024 8:14 PM EST [facility] Anion Gap 12 8 - 15 mmol/L 01/18/2024 8:14 PM EST [facility] Estimated Glomerular Filtration Rate 105 >=60 mL/min/1.7 3m 01/18/2024 8:14 PM EST [facility] Comment:Estimated Glomerular Filtration Rate (eGFR) [...] us Renny Baron MD LABORATORY Final Result [facility] [address] [phone], * HEPATITIS C ANTIBODY IA WITH CONFIRMATION (01/18/2024 11:32 AM EST) Hep C Antibody IA Negative Negative 01/18/2024 6:12 PM EST [facility] Comment:The result suggests no evidence of active infection with Hepatitis C virus. Should recent infection be suspected, repeat testing may be considered 4-6 weeks after this draw. Blood BLOOD SPECIMEN / Unknown Venipuncture / Unknown 01/18/2024 11:32 AM EST 01/18/2024 11:33 AM EST us Renny Baron MD LABORATORY Final Result [facility] [place] [address], from Last 3 Months or Most Recently Relevant to Health Maintenance Insurance [employer]
--- OUTSIDE RECORDS SUMMARY | 2024-08-16 19:50 | XMS_ITS | Encounter Summary ---
Author Organization [facility] Address [facility] [place] [address] Care Team Providers Care Watch Supervisor Name Role Phone Unavailable Primary Care Provider Unavailabl e Source Comments In the event this information is protected by the Federal Confidentiality of Alcohol and Drug AbusePatient Records regulations: The Federal rules restrict any use of the information to criminally investigate or prosecute any alcohol or drug abuse patient.[facility] Encounter Details Date Type Department Care Team (Late st Contact Info) Description 03/08/2024 Patient [facility] [address] [place], [place] [phone] Provider, [facility] Internal medicine Social History Tobacco Use Types [...] is lower risk 7 01/18/2024 Data from: https://www.neighborhoodatlas.medicine.[facility].edu/. Last address used for calculation [address] [...]
--- OUTSIDE RECORDS SUMMARY | 2024-08-16 19:50 | XMS_ITS | Patient Health Record ---
Author Organization [facility] [place] Address [address] [place] [address] Care Team Providers Care Furnace Process Supervisor Name Role Phone KAYY PANIAGUA Primary Care Provider [phone] Owen Busby Unavailable [phone] Benji Paniagua Unavailable [phone] Allergies Allergen (clinical drug ingredient) Drug/Non Drug Allergy documented on EMR Reaction Allergy Type Onset Date Status meperidine Demerol vomiting Drug Allergy Active Results Component Value Reference Range Notes CBC AUTO DIFF Reviewed date:03/14/2024 07:09:55 PM Interpretation: Performing Lab: Notes/Report: [facility] , White Blood Count 13.0 4.0-11.0 10 3/uL Red Blood Count 5.26 4.20-5.40 10 6/uL Hemoglobin 13.1 12.0-16.0 g/dL Hematocrit 41.1 36.0-48.0 % Mean Corpuscular Volume 78.1 81.0-99.0 fL Mean Corpuscular Hemoglobin 24.9 26.7-34.0 pg Mean Corpuscular HGB Conc 31.9 29.9-35.2 g/dL Red Cell Distribution Width 14.0 11.0-15.0 % Platelet Count 276 150-450 10 3/uL Mean Platelet Volume 10.2 9.5-13.5 fL Neutrophils Percent Auto 70.8 43.0-75.0 % Lymphocytes Percent Auto 15.9 20.5-60.0 % Monocytes Percent Auto 8.6 1.7-12.0 % Eosinophils Percent Auto 3.4 0.9-7.0 % Basophils Percent Auto 0.7 0.2-2.0 % Immature Granulocytes Pct Auto 0.6 0.0-0.5 % Neutrophils Absolute Auto 9.2 1.4-6.5 10 3/uL Lymphocytes Absolute Auto 2.1 1.2-3.8 10 3/uL Monocytes Absolute Auto 1.1 0.3-0.8 10 3/uL Eosinophils Absolute Auto 0.4 0.0-0.7 10 3/uL Basophils Absolute Auto 0.1 0.0-0.1 10 3/uL Immature Granulocytes Abs Auto 0.08 0.00-0.03 10 3/uL Performing Lab: see note ML - [facility] LB PROF 14(COMP METB) Reviewed date:03/14/2024 07:09:55 PM Interpretation: Performing Lab: Notes/Report: [facility] , Sodium 140 136-145 mmol/L Potassium 3.8 3.5-5.1 mmol/L Chloride 102 98-107 mmol/L Carbon Dioxide 28.7 21.0-32.0 mmol/L Anion Gap 13.1 Glucose 92 74-106 mg/dL Blood Urea Nitrogen 17.0 7.0-18.0 mg/dL Creatinine 0.93 0.55-1.02 mg/dL Estimated GFR ( Nasrin >60 >=60 mL/min/1.73m 2 Estimated GFR (Non- Gay >60 >=60 mL/min/1.73m 2 BUN Creatinine Ratio 18.3 Calcium 9.0 8.5-10.1 mg/dL Bilirubin Total 0.4 0.2-1.0 mg/dL Aspartate Amino Transferase 15 15-37 U/L Alanine Aminotransferase 26 14-59 U/L Alkaline Phosphatase 142 46-116 U/L Total Protein 7.7 6.4-8.2 g/dL Albumin Level 3.5 3.4-5.0 g/dL Globulin 4.2 Albumin Globulin Ratio 0.8 Performing Lab: see note ML - [facility] LB MM tomosynthesis screening B I Reviewed date:09/20/2023 11:12:17 AM Interpretation: Performing Lab: Notes/Report: Source Facility: [facility] [place] [address] [place] [address] Mammography Report Signed Patient: MALU STEELE MR#: [id number] : 1965 Acct:[id number] Age/Sex: 58 / F ADM Date: 09/18/23 Loc: MAMMO Attending Dr: Kayy Paniagua M.D. Ordering Physician: Kayy Paniagua M.D. Results: Date of Service: 09/18/23 Follow Up: Procedure(s): MM tomosynthesis screening BI Accession Number(s): [id number] cc: Kayy Paniagua M.D. Patient Name: MALU STEELE MR#: [id number] : 1965 Exam Date: 09/18/2023 Ordering Doctor: DR Kayy Paniagua . RADIOLOGY REPORT PROCEDURE: MM TOMOSYNTHESIS SCREENING BI COMPARISON: MG MAMM SCREEN 3D WILMA CAD, 05/11/2020. MAMMO RT UNI DIG, 12/24/2011. MAMMO SCREEN DIG WILMA, 12/17/2011. INDICATIONS: Screening Calculator Name NCI Breast Cancer Risk Assessment Tool 5 Year Breast Cancer Risk 1.00% Lifetime Breast Cancer Risk 6.50% Personal Breast Cancer No Personal Ovarian Cancer No Treatments None Family Cancers Sister with tongue cancer at age 37. LOCATION: [facility] BREAST COMPOSITION: There are scattered areas of fibroglandular density. FINDINGS: DIAGNOSTIC CATEGORY 2--BENIGN FINDING: RIGHT BREAST: No significant suspicious finding. Scattered benign-appearing nodes are present. No significant change has occurred. LEFT BREAST: No significant suspicious finding. Scattered benign-appearing nodules are present. No significant change has occurred. RECOMMENDATIONS: ROUTINE MAMMOGRAM AND CLINICAL EVALUATION IN 12 MONTHS. PLEASE NOTE: A NORMAL MAMMOGRAM DOES NOT EXCLUDE THE POSSIBILITY OF BREAST CANCER. A CLINICALLY SUSPICIOUS PALPABLE LUMP SHOULD BE BIOPSIED. Dictated by: Darius Herzog M.D. on 09/18/2023 at 14:11 Approved by: Darius Herzog M.D. on 09/18/2023 at 14:13 Dictated By: Darius Herzog M.D. Signed By: 09/18/23 1414 DD/ 1413 TD/TT: Occupational Therapy Aides Teacher: The [address] [address] Mammography Report Signed Patient: KATERINA STEELE MR#: [id number] : 1965 Acct:[id number] Age/Sex: 58 / F ADM Date: 09/18/23 Loc: MAMMO Attending Dr: Maikol Paniagua M.D. Ordering Physician: Kayy Paniagua M.D. Results: Date of Service: Follow Up: Procedure(s): MM tomosynthesis screening BI Accession Number(s): [id number] cc: Kayy Paniagua M.D. Patient Name: MALU STEELE MR#: [id number] : 1965 Exam Date: 09/18/2023 Ordering Doctor: DR Kayy Paniagua . RADIOLOGY REPORT PROCEDURE: MM TOMOSYNTHESIS SCREENING BI COMPARISON: MG MAMM SCREEN 3D WILMA CAD, 05/11/2020. MAMMO RT UNI DIG, 12/24/2011. MAMMO SC REEN DIG WILMA, 12/17/2011. INDICATIONS: Screening Calculator Name NCI Breast Cancer Risk Assessment Tool 5 Year Breast Cancer Risk 1.00% Lifetime Breast Canc er Risk 6.50% Personal Breast Cancer No Personal Ovarian Cancer No Treatments None Family Cancers Siste r with tongue cancer at age 37. LOCATION: [facility] BREAST COMPOSITION: There are scattered areas of fibroglandular density. FINDINGS: DIAGNOSTIC CATEGORY 2--BENIGN FINDING: RIGHT BREAST: No significant suspicious finding. Scattered benign-appearing nodes are present. N o significant change has occurred. LEFT BREAST: No significant suspicious finding. Scattered benign-appearing nodules are present. No significant change has occurred. RECOMMENDATIONS: ROUTINE MAMMOGRAM AN D CLINICAL EVALUATION IN 12 MONTHS. PLEASE NOTE: A ROSALINDA L MAMMOGRAM DOES NOT EXCLUDE THE POSSIBILITY OF BREAST CANCER. A CLINICALLY SUSPICIOUS PALPABLE LUMP SHOULD BE BIOPSIED. Dictated by: Darius Herzog M.D. on 09/18/2023 at 14:11 Approved by: Darius Herzog M.D. on 09/18/2023 at 14:13 Dictated By: Darius Herzog M.D. Signed By: 09/18/23 1414 DD/ 1413 TD/TT: Occupational Therapy Aides Teacher: EDGAR DILLON min 2V Reviewed date:01/27/2024 05:36:58 PM Interpretation: Performing Lab: Notes/Report: Source Facility: [address] [address] XRay Report Signed Patient: MALU STEELE MR#: [id number] : 1965 Acct:[id number] Age/Sex: 59 / F ADM Date: 01/27/24 Loc: RAD Attending Dr: Non-Staff Physician Cj Ordering Physician: PhysicianMadhav M.D. Date of Service: 01/27/24 Procedure(s): XR shoulder WILMA min 2V Accession Number(s): [id number] cc: Kayy Paniagua M.D.; Madhav Otto M.D. [place] [address] Patient Name: MALU STEELE MRN: [id number] date: 1965 Sex: F Assigned Patient Location: [facility] Current Patient Location: [facility] Accession/Order Number: [id number] Exam Date: 01/27/2024 14:45 Report Date: 01/27/2024 16:00 At the request of: NON-STAFF PHYSICIAN Procedure: XR shoulder WILMA min 2V EXAMINATION: XR shoulder WILMA min 2V HISTORY: Arthritis COMPARISON: No relevant comparison available. FINDINGS: RIGHT FINDINGS: BONES: No acute fracture or dislocation. Mild acromioclavicular joint osteoarthropathy. Glenohumeral joint is intact SOFT TISSUES: Negative. No visible soft tissue swelling. OTHER: Negative. LEFT FINDINGS: BONES: No acute fracture or dislocation. Mild acromioclavicular joint osteoarthropathy. Glenohumeral joint is intact SOFT TISSUES: Negative. No visible soft tissue swelling. OTHER: Negative. XR/XR shoulder WILMA min 2V IMPRESSION: Mild bilateral acromioclavicular joint osteoarthritis Electronically authenticated by: HELEN MCKEE Date: 01/27/2024 16:00 Dictated By: Helen Mckee M.D. Signed By: 01/27/24 1602 DD/ 1600 TD/TT: Occupational Therapy Aides Teacher: The [address] [place] [address] XRay Report Signed Patient: KATERINA STEELE MR#: [id number] : 1965 Acct:[id number] Age/Sex: 59 / F ADM Date: 01/27/24 Loc: DREW Attending Dr: Bertram Otto M.D. Ordering Physician: Madhav Otto M.D. Date of Service: 01/27/24 Procedure(s): XR gina ulder WILMA min 2V Accession Number(s): [id number] cc: Kayy Paniagua M.D. ; Madhav Otto M.D. The [address] [address] Patient Name: MALU STEELE MRN: [id number] date: 1965 Sex: F Assigned Patient Loc ation: DREW Current Patient Loca tion: RAD Accession/Order Numb er: [id number] Exam Date: 14:45 Report Date: 01/27/2024 16:00 At the request of: NON-STAFF PHYSICIAN Procedure: XR should er WILMA min 2V EXAMINATION: XR shou lder WILMA min 2V HISTORY: Arthritis COMPARISON: No relev ant comparison available. FINDINGS: RIGHT FINDINGS: BONES: No acute frac ture or dislocation. Mild acromioclavicular joint osteoarthropathy. Glenohumeral joint is intact SOFT TISSUES: Negati ve. No visible soft tissue swelling. OTHER: Negative. LEFT FINDINGS: BONES: No acute frac ture or dislocation. Mild acromioclavicular joint osteoarthropathy. Glenohumeral joint is intact SOFT TISSUES: Negati ve. No visible soft tissue swelling. OTHER: Negative. X R/XR shoulder WILMA min 2V IMPRESSION: Mild bilateral acromioclavicular joint osteoarthritis Electronically authenticated by: HELEN MCKEE Date: 01/27/2024 16:00 Dictated By: Zoran Mckee M.D. Signed By: 01/27/24 160 DD/ 99 TD/TT: Occupational Therapy Aides Teacher: XR sacroiliac joint WILMA Reviewed date:01/27/2024 05:36:58 PM Interpretation: Performing Lab: Notes/Report: Source Facility: [place] [address] [place] [address] XRay Report Signed Patient: MALU STEELE MR#: [id number] : 1965 Acct:[id number] Age/Sex: 59 / F ADM Date: 01/27/24 Loc: RAD Attending Dr: Non-Staff Physician Cj Ordering Physician: Madhav Otto M.D. Date of Service: 01/27/24 Procedure(s): XR sacroiliac joint WILMA Accession Number(s): [id number] cc: Kayy Paniagua M.D.; Madhav Otto M.D. [place] [address] Patient Name: MALU STEELE MRN: [id number] date: 1965 Sex: F Assigned Patient Location: [facility] Current Patient Location: [facility] Accession/Order Number: [id number] Exam Date: 01/27/2024 14:45 Report Date: 01/27/2024 15:57 At the request of: NON-STAFF PHYSICIAN Procedure: XR sacroiliac joint WILMA PROCEDURE: XR sacroiliac joint WILMA COMPARISON: None. HISTORY: Arthritis FINDINGS: BONES:No fracture, acute abnormality, or significant arthropathy. SOFT TISSUES:Negative. No visible soft tissue swelling. EFFUSION:None visible. Sacroiliac joints: Negative. XR/XR sacroiliac joint WILMA IMPRESSION: No acute abnormality of the sacroiliac joints Electronically authenticated by: HELEN MCKEE Date: 01/27/2024 15:57 Dictated By: Helen Mckee M.D. Signed By: 01/27/24 1559 DD/ 1557 TD/TT: Occupational Therapy Aides Teacher: [place] [address] XRay Report Signed Patient: KATERINA STEELE MR#: [id number] : 1965 Acct:[id number] Age/Sex: 59 / F ADM Date: 01/27/24 Loc: RAD Attending Dr: Bertram Otto M.D. Ordering Physician: Madhav Otto M.D. Date of Service: 01/27/24 Procedure(s): XR sacroiliac joint WILMA Accession Number(s): [id number] cc: Kayy Paniagua M.D. ; Madhav Otto M.D. The [address] [id number] Patient Name: MALU STEELE MRN: [id number] date: 1965 Sex: F Assigned Patient Loc ation: RAD Current Patient Loca tion: RAD Accession/Order Numb er: [id number] Exam Date: 14:45 Report Date: 01/27/2024 15:57 At the request of: NONJAY PHYSICIAN Procedure: XR sacroi liac joint WILMA PROCEDURE: XR sacroi liac joint WILMA COMPARISON: None. HISTORY: Arthritis FINDINGS: BONES:No fracture, a cute abnormality, or significant arthropathy. SOFT TISSUES:Negativ e. No visible soft tissue swelling. EFFUSION:None visible. Sacroiliac joints: Negative. X R/XR sacroiliac joint WILMA IMPRESSION: No acute abnormality of the sacroiliac joints Electronically authenticated by: HELEN MCKEE Date: 01/27/2024 15:57 Dictated By: Zoran Mckee M.D. Signed By: 01/27/24 1559 DD/ 1557 TD/TT: Occupational Therapy Aides Teacher: XR hand WILMA 2V Reviewed date:01/27/2024 05:36:58 PM Interpretation: Performing Lab: Notes/Report: Source Facility: [place] [address] [place] [address] XRay Report Signed Patient: MALU STEELE MR#: [id number] : 1965 Acct:[id number] Age/Sex: 59 / F ADM Date: 01/27/24 Loc: DREW Attending Dr: Madhav Otto M.D. Ordering Physician: Madhav Otto M.D. Date of Service: 01/27/24 Procedure(s): XR hand WILMA 2V Accession Number(s): [id number] cc: Kayy Paniagua M.D.; PhysicianMadhav M.D. [address] [address] Patient Name: MALU STEELE MRN: [id number] date: 1965 Sex: F Assigned Patient Location: [facility] Current Patient Location: RAD Accession/Order Number: [id number] Exam Date: 01/27/2024 14:45 Report Date: 01/27/2024 15:58 At the request of: NON-STAFF PHYSICIAN Procedure: XR hand WILMA 2V EXAMINATION: XR hand WILMA 2V HISTORY: Arthitis COMPARISON: No relevant comparison available. FINDINGS: RIGHT FINDINGS: BONES: Normal. No significant arthropathy or acute abnormality. SOFT TISSUES: Negative. No visible soft tissue swelling. OTHER: Negative. LEFT FINDINGS: BONES: Normal. No significant arthropathy or acute abnormality. SOFT TISSUES: Negative. No visible soft tissue swelling. OTHER: Negative. XR/XR hand WILMA 2V IMPRESSION: RIGHT CONCLUSION: No acute abnormality LEFT CONCLUSION: No acute abnormality Electronically authenticated by: HELEN MCKEE Date: 01/27/2024 15:58 Dictated By: Helen Mckee M.D. Signed By: 01/27/24 1601 DD/ 1558 TD/TT: Occupational Therapy Aides Teacher: [place] [address] XRay Report Signed Patient: KATERINA STEELE MR#: [id number] : 1965 Acct:[id number] Age/Sex: 59 / F ADM Date: 01/27/24 Loc: RAD Attending Dr: Bertram Otto M.D. Ordering Physician: Madhav Otto M.D. Date of Service: 01/27/24 Procedure(s): XR nice d WILMA 2V Accession Number(s): [id number] cc: Kayy Paniagua M.D. ; PhysicianMadhav M.D. [address] [address] Patient Name: MALU STEELE MRN: [id number] date: 1965 Sex: F Assigned Patient Loc ation: RAD Current Patient Loca tion: RAD Accession/Order Numb er: [id number] Exam Date: 14:45 Report Date: 01/27/2024 15:58 At the request of: NON-STAFF PHYSICIAN Procedure: XR hand WILMA 2V EXAMINATION: XR hand WILMA 2V HISTORY: Arthitis COMPARISON: No relev ant comparison available. FINDINGS: RIGHT FINDINGS: BONES: Normal. No significant arthropathy or acute abnormality. SOFT TISSUES: Negati ve. No visible soft tissue swelling. OTHER: Negative. LEFT FINDINGS: BONES: Normal. No significant arthropathy or acute abnormality. SOFT TISSUES: Negati ve. No visible soft tissue swelling. OTHER: Negative. X R/XR hand WILMA 2V IMPRESSION: RIGHT CONCLUSION: No acute abnormality LEFT CONCLUSION: No acute abnormality Electronically authenticated by: HELEN MCKEE Date: 01/27/2024 15:58 Dictated By: Zoran Mckee M.D. Signed By: 01/27/24 1601 DD/ 1558 TD/TT: Occupational Therapy Aides Teacher: XR pelvis 1-2V Reviewed date:01/28/2024 12:43:16 PM Interpretation: Performing Lab: Notes/Report: Source Facility: [place] [address] XRay Report Signed Patient: MALU STEELE MR#: [id number] : 1965 Acct:[id number] Age/Sex: 59 / F ADM Date: 01/27/24 Loc: DREW Attending Dr: Non-Staff Physician [place] Ordering Physician: PhysicianMadhav M.D. Date of Service: 01/27/24 Procedure(s): XR pelvis 1-2V Accession Number(s): [id number] cc: Kayy Paniagua M.D.; PhysicianMadhav M.D. The [place] [address] Patient Name: MALU STEELE MRN: [id number] date: 1965 Sex: F Assigned Patient Location: RAD Current Patient Location: Accession/Order Number: [id number] Exam Date: 01/27/2024 14:45 Report Date: 01/28/2024 07:24 At the request of: NON-STAFF PHYSICIAN Procedure: XR pelvis 1-2V PROCEDURE: XR pelvis 1-2V COMPARISON: None. HISTORY: Arthritis FINDINGS: BONES:No acute fracture or dislocation. Mild bilateral hip osteoarthritis SOFT TISSUES:Negative. No visible soft tissue swelling. EFFUSION:None visible. OTHER: Negative. XR/XR pelvis 1-2V IMPRESSION: Mild bilateral hip osteoarthritis Electronically authenticated by: HELEN MCKEE Date: 01/28/2024 07:24 Dictated By: Helen Mckee M.D. Signed By: 01/28/24726 DD/ 3 TD/TT: Occupational Therapy Aides Teacher: [place] [address] XRay Report Signed Patient: KATERINA STEELE MR#: [id number] : 1965 Acct:[id number] Age/Sex: 59 / F ADM Date: 01/27/24 Loc: RAD Attending Dr: Bertram Otto M.D. Ordering Physician: Madhav Otto M.D. Date of Service: 01/27/24 Procedure(s): XR pel vis 1-2V Accession Number(s): [id number] cc: Kayy Paniagua M.D. ; Madhav Otto M.D. The [place] [id number] Patient Name: MALU STEELE MRN: [id number] date: 1965 Sex: F Assigned Patient Loc ation: [facility] Current Patient Location: Accession/Order Numb er: [id number] Exam Date: 14:45 Report Date: 01/28/2024 07:24 At the request of: NON-STAFF PHYSICIAN Procedure: XR pelvis 1-2V PROCEDURE: XR pelvis 1-2V COMPARISON: None. HISTORY: Arthritis FINDINGS: BONES:No acute fract ure or dislocation. Mild bilateral hip osteoarthritis SOFT TISSUES:Negativ e. No visible soft tissue swelling. EFFUSION:None visible. OTHER: Negative. X R/XR pelvis 1-2V IMPRESSION: Mild bilateral hip osteoarthritis Electronically authenticated by: HELEN MCKEE Date: 01/28/2024 07:24 Dictated By: Zoran Mckee M.D. Signed By: 01/28/24726 DD/ 3 TD/TT: Occupational Therapy Aides Teacher: [place] Screen* Reviewed date:03/14/2024 07:09:55 PM Interpretation: Performing Lab: Notes/Report: [facility] , [place] Screen NEGATIVE NEGATIVE Performing Lab: see note ML - [facility] LB Reason For Referral Diagnosis 1 Sebaceous cyst (L72. 3) Referral Organization [facility] Medicine Referring Provider First Name Benji Referring Provider Last Name Arcelia Referring Provider Speciality Family Med ildefonso Referred Provider Zacarias Syed Referred Provider Specialty General Surg [place] Referral Priority Routine Medications Medication SIG (Take, Route, Frequency, Duration) Notes Start Date End Date Status Aspirin 81 81 MG 1 tablet Orally Once a day Active Celecoxib 100 MG 1 capsule with food Oral bid for 30 days Active Dicyclomine HCl 20 MG 1 tablet Orally Th ree times a day PRN Active dilTIAZem HCl ER Coated Beads 240 MG 1 capsule Orally Once a day for 30 days Active Centrum Adults - as directed Orally Active Desvenlafaxine Succinate ER 100 MG TAKE 1 TABLET BY MOUTH EVERY DAY FOR 30 DAYS for 90 Active Ondansetron 4 MG 1 tablet on the tong ue and allow to dissolve Orally Q 6 hours PRN nausea PRN Active Pantoprazole Sodium 40 MG 1 tablet Orall y BID for 30 days Active Imitrex 100 MG 1 tablet at least 2 hours between doses as needed Orally Once a day 03/31/2024 Active Lisinopril 10 MG Oral for 21 Days Active Immunizations Vaccine Route Administration Date Status Comme nts SARS-COV-2 (COVID 19 Moderna - Booster 0.25mL) Unknown 04/04/2020 Administered Social History Tobacco Use: Social History Observation Description Date Details (start date - stop date) Former Smoker NA - NA Tobacco Control (Standard) Question Answer Notes Tobacco use: Former smoker How long has it been since y ou last smoked? Greater than 10 years Additional Findings: Tobacco non-user Ex -moderate cigarette smoker (10-19/day) AUDIT-C (Standard) Question Answer Notes Did you have a drink contain ing alcohol in the past year? Yes How often did you have six o r more drinks on one occasion in the past year? Never (0 point) How many drinks did you have on a typical day when you were drinking in the past year? 1 or 2 drinks (0 point) How often did you have a dri nk containing alcohol in the past year? Monthly or less (1 point) Points 1 Interpretation Negative Problems Problem Type SNOMED Code ICD Code Onset Dates Problem Status W/U Status Risk Notes Problem Sebaceous cyst (149846052) Sebaceous cyst (L72.3) Active confirmed Problem Obesity (707764995) Obesity (E66.9) Active confirmed Problem Essential hypertension (57645113) Essential hypertension (I10) Active confirmed Problem Anemia (426307176) Anemia (D64.9) Active confir med Problem Osteopenia (184540256) Osteopenia (M85.80) Active confirmed Problem Obstructive sleep apnea syndrome (07457217) LOAN (obstructive sleep apnea) (G47.33) Active confirmed Problem Degeneration of cervical intervertebral disc (09613679) Degenerative disc disease, cervical (M50.30) Active confirmed Problem Seasonal allergic rhinitis (052304585) Allergic rhinitis, seasonal (J30.2) Active confirmed Problem Crohn disease (27936960) Crohn disease (K50.90) Active confirmed Problem Atrial fibrillation (61165716) PAF (paroxysmal atrial fibrillation) (I48.0) Active confirmed Problem Gastro-esophageal reflux disease (471038661) Gastro-esophagea l reflux disease (K21.9) Active confirmed Vital Signs Heart Rate 67 /min 07/20/2024 Temperature 96.6 degrees Fahrenheit 07/20/2024 Respiratory Rate 16 /min 07/20/2024 Oximetry 96 % 07/20/2024 Blood pressure diastolic 84 mm Hg 07/20/2024 Height 67 in 07/20/2024 Blood pressure systolic 127 mm Hg 07/20/2024 Weight 229.4 lbs 07/20/2024 BMI 35.93 kg/m2 07/20/2024 Procedures Procedure Date Ordered Date Performed Result Body Sit e Home Sleep Study (Apnea Link Plus) 07/20/2024 N /A Encounters Encounter Location Date Provider Diagnosis [facility] [address] [facility] [place] [id number] 03/11/2024 Benji Arcelia Essential hypertensi on I10 and Sebaceous cyst L72.3 [facility] [address] [facility] [place] [phone] 03/14/2024 Benji Arcelia Acute bronchitis, unspecified organism J20.9 and Dyspnea R06.00 [facility]monary [facility] [place] [address] [facility] [place] [phone] 07/20/2024 Owen Busby LOAN (obstructive sle ep apnea) G47.33 ; PAF (paroxysmal atrial fibrillation) I48.0 and Obesity E66.9 [facility] [address] [facility] [place] [phone] 09/20/2023 Benji [facility] [address] [facility] [place] [phone] 10/27/2023 Benji [facility] [address] [facility] [place] [phone] 11/11/2023 Benji [facility] Pulmonary [facility] [address] [facility] [place] [phone] 12/14/2023 Owen [facility] Pulmonary [facility] [address] [facility] [place] [phone] 01/26/2024 Owen [facility] Pulmonary [facility] [address] [facility] [place] [phone] 03/02/2024 Owen Busby [facility] [address] [facility] [place] [phone] 03/21/2024 Benji [facility] [address] [facility] [place] [phone] 03/31/2024 Benji [facility] [address] [facility] [place] [phone] 06/28/2024 [facility] Pulmonary [facility] [address] [facility] [place] [phone] 06/29/2024 Owen Busby Assessments Encounter Date Diagnosis (ICD Code) Assessment Notes Treatment Notes Treatment Clinical Notes Section Notes 03/11/2024 Sebaceous cyst (ICD-10 - L72.3) 03/11/2024 Essential hypertension (ICD-10 - I10) 03/14/2024 Dyspnea (ICD-10 - R06.00) 03/14/2024 Acute bronchitis, unspecified organism (ICD-10 - J20.9) Rest and drink more liquids, especially water. You may use a humidifier or vaporizer to help keep the drainage moist. Jxuh-crr-kqxqinx Nasal Saline may help the stuffy and runny nose. Use Ibuprofen and or Tylenol as needed for fever, chills, body aches or pain. Children 5 years old should not be given jcmc-jat-fqxfmkd cough and cold medications such as guaifenesin and dextromethorphan. If you're over age 5, you may try nyvt-kce-mymiwhs cold medications such as guaifenesin and dextromethorphan, or multi-symptom cold reliever such as Dayquil to help reduce the symptoms. Antibiotics have been prescribed. You should take these until completed and follow the directions. Antibiotics can sometimes cause upset stomach, and in rare cases, serious allergic reactions or serious gastrointestinal problems. If you start having severe abdominal pain, severe vomiting, or bloody diarrhea, you should be reevaluated by your physician or urgent care immediately. Follow up with your Primary Care Provider or return to clinic if symptoms do not improve within 3-5 days. If you develop severe symptoms such as shortness of breath, repeated vomiting, coughing up blood, or chest pain you should go to the emergency room or call 911 07/20/2024 LOAN (obstructive sleep apnea) (ICD-10 - [...] LOAN, then I would order an autoCPAP [id number]. If more severe, will order attended titration study. Explained minimum compliance is 70% of all nights >4 hours. She will need to return in 30-90 days to document compliance. Discussed different mask types. She voiced she would like [facility] as her DME. 07/20/2024 PAF (paroxysmal atrial fibrillation) (ICD-10 - I48.0) Discussed relationship with untreated LOAN and PAF. 07/20/2024 Obesity (ICD-10 - E66.9) Discussed weight loss - any weight loss can potentially help LOAN, and treatment of LOAN can also aid in weight loss. Zepbound is approved for LOAN, but only for [id number] LOAN, so she would not currently qualify for it. She was encouraged to increase activity and monitor caloric intake. Plan Of Treatment Pending Test Test Name Order Date CMP (COMPLETE METABOLIC PANEL) Urine Culture 03/24/2023 Home Sleep Study (Apnea Link Plus) 07/20 CBC W/AUTO DIFF 07/14/2022 ANTIBODY IDENTIFICATION 06/11/2022 CBC AUTO DIFF 03/23/2023 IRON 07/14/2022 MONO 03/14/2024 SNR 04 URINALYSIS 03/24/2023 XR CHEST 2 V 03/02/2023 THYROID PANEL (T4/TSH/FREE T3) 3 Next Appt Details Provider Name:Owen Busby, 10/12/2024 08:30:00 AM, [address] [place], [address], Insurance Providers Payer Name Payer Address Payer Phone Subscriber Number Group Number Insured Name Patient Relationship to Insured Coverage Start Date Coverage End Date [place] [address] [place] [address] [id number] Bear Steele Spouse - patient is the spouse of the insured 8 Medical (General) History Medical History History ICD Code Gastro-esophageal reflux disease K21.9 Osteopenia M85.80 Degenerative disc disease, cervical M50. 30 Essential hypertension I10 Allergic rhinitis, seasonal J30.2 Anemia D64.9 LOAN (obstructive sleep apnea) G47.33 PAF (paroxysmal atrial fibrillation) I48 .0 Crohn disease K50.90 Sebaceous cyst L72.3 Obesity E66.9 Surgical History Surgery Date(Month/Year) EGD and Colonoscopy Total Hysterectomy
--- OUTSIDE RECORDS SUMMARY | 2024-08-16 19:50 | XMS_ITS | Clinical Summary ---
Author Organization [facility] Address [address] [place] [address] Care Team Providers Care Hcc Coders Name Role Phone Brett Paniagua MD Primary Care Provider [phone] Allergies Active Allergy Reactions Criticality Noted Date [...] 07/03/2023 Overview (09/24/2023): CARLITO=9.5 events/hour; Leroy SpO2=84%; Kmpmrm=169.0 lbs; BMI=35.7 kg/m2, Home Sleep Apnea Testing on 07/01/2023 at [facility] Family History Medical History Relation Name Comments [...] HPV (human papillomavirus) from Last 3 Months or Most Recently Relevant to Health Maintenance Results * IGP, APT HPV,RFX 16/18,45 (05/05/2024 12:00 AM EDT) Diagnosis: Comment [facility] Comment:NEGATIVE FOR INTRAEP ITHELIAL LESION OR MALIGNANCY. Specimen Adequacy: Comment [facility] Comment: Satisfactory for evaluation. Endocervical and/or squamous metaplastic cells (endocervical component) are present. Clinician Provided ICD10: Comment [facility] Comment: Z12.4 Z11.51 Performed By: Comment [facility] Comment:Phillip Saleem, Cytote chnologist (ASCP) Cyto Comments . [facility] Note: Comment [facility] Comment: The Pap smear is a screening test designed to aid in the detection of premalignant and malignant conditions of the uterine cervix. It is not a diagnostic procedure and should not be used as the sole means of detecting cervical cancer. Both false-positive and false-negative reports do occur. Test Methodology: CANCELED [facility] Comment: The 99tests(R) Delivery Nurse was unable to read this specimen. Therefore a manual review was performed. Result canceled by the ancillary. HPV Aptima Negative Negative [facility] Comment: This nucleic acid amplification test detects fourteen high-risk HPV types (16,18,31,33,35,39,45,51,52,56,58,59,66,68) without differentiation. Vaginal Fluid 05/05/2024 05/06/2024 Narrative [facility] - 05/10/2024 1:07 PM EDT Performed at: - [facility] [id number] Drop Forger: Ghada Melo MD, Phone: [phone] Performed at: - [facility] [id number] Drop Forger: Ghada Melo MD, Phone: [phone] Specimen Comment: No. of containers..01 ThinPrep Vial us Wolf Medley MD LAB BLOOD ORDERABLES Edited Re sult - Final [facility] from Last 3 Months or Most Recently Relevant to Health Maintenance Insurance [employer] Care Teams Hcc Coders Relationship Specialty Start Date End Date Brett Paniagua MD PCP - General Family Medicine 09/24/23
--- OUTSIDE RECORDS SUMMARY | 2024-08-16 19:50 | XMS_ITS | Clinical Summary ---
Author Organization [facility] Address [address] [place] [address] Care Team Providers Care Web Ui Developer Name Role Phone Brett Paniagua MD Primary Care Provider [phone] Allergies Active Allergy Reactions Criticality Noted Date [...] 100 mg by mouth twice a day. 02/28/19 25 Active ondansetron ODT (Zofran-ODT) 4 mg [...] 07/01/19 Overview (07/03/2023): CARLITO=9.5 events/hour; Leroy SpO2=84%; Edjjfo=240.0 lbs; BMI=35.7 kg/m2, Home Sleep Apnea Testing on 07/01/2023 at [facility] Atrial fibrillation 03/04/2023 Essential hypertension 06/12/2022 Encounters Date Type Department Care Team Description 06/24/2024 11:40 AM EDT Office Visit [address] [address] Felipe Burger MD Paroxysmal atrial [...] on patient's age to complete this topic Insurance [employer] Care Teams Web Ui Developer Relationship Specialty Start Date End Date Brett Paniagua MD [address] [place] [place] [address] PCP - General 03/30/23
--- OUTSIDE RECORDS SUMMARY | 2024-08-16 20:01 | XMS_ITS | CCD ---
Author Organization [facility] CliniSyvt Care Team Providers Care Pressing Machine Tender Name Role Phone ANTHONYMamtaADA Referring Unavailable BRETT PANIAGUA Primary Care Unavailable Nader Paniagua Primary Care Provider [phone] René Ly Attending Provider René Ly Unavailable MERCY ., DR SULTANA Admitting Unavailable [...] STRAWSER, DWIGHT Consulting Unavailable Philippe Wise Unavailable Unavailable Primary Care Provider UnavailRENNY Nielson Attending Unavailable KRISTY EVANGELISTA Referring Unavailable KRISTY EVANGELISTA Referring Unavailable KRISTY EVANGELISTA Attending Unavailable SELF Referring Unavailable RENNY BARON Attending Unavailable RENNY BARON Referring Unavailable Brett Paniagua Primary Care Physician Brett Paniagua Referring Unavailable Zacarias COBIAN Attending Unavailable Brett Paniagua MD Primary Care Provider WOLF MEDLEY Attending Unavailable LESTER HARRELL Attending Unavailable SUSANNE PAZ Attending Unavailable KIM FATIMA Attending Unavailable LOU MCCLAIN Referring Unavailable Brett Paniagua MD Primary Care Provider [phone] Philippe Wise MD Attending Provider [phone] Philippe Wise Attending Unavailable Philippe Wise Admitting Unavailable Brett Paniagua Primary Care Unavailable Allergies Allergy Classification Reported Allergen(s) Allergy Type Date of Onset Reaction(s) Facility (20 sources) Codeine; Translations: [CODEINE] Drug Allergy 9 GI Upset, Other: See Comments, GI intolerance [facility] (17 sources) Meperidine; Translations: [MEPERIDINE] Drug Allergy 1 Unknown, Vomiting, Vomiting (disorder) iFlipd Other (1 source) Codeine Drug Allergy [facility] Repository (2 sources) Meperidine; Translations: [Demerol] Drug Allergy [facility] Repository (1 source) Codeine Drug Allergy 5 [facility] Repository (1 source) Meperidine Drug Allergy 5 [facility] Repository Medications Current Medications Medication Drug [...] aspirin 81 mg delayed release oral tablet (18 sources) Platelet Aggregation Inhibitor, Nonsteroidal Anti-inflammatory Drug Start: 07-19-2024 take 1 tablet by mouth once daily Aspirin (Adult Aspirin Regimen) 81 mg tablet,delayed release (DR/EC) Active 81 MG PO Daily July 19, 2024 12:00am Start: 03-14-2024 take 1 tablet by rosario once daily aspirin 81 mg Oral EC Tab 81 mg = 1 tab(s), Oral, Daily, Refills(s) 0 Start Date: 03/14/24 Status: Ordered celecoxib 100 mg oral capsule (13 sources) Nonsteroidal Anti-inflammatory Drug Start: 07-19-2024 take 1 capsule by mouth once daily Celecoxib 100 mg capsule Active 100 MG PO Daily July 19, 2024 12:00am Start: 03-14-2024 take 1 capsule by mo [facility] twice daily CeleBREX 100 mg Cap 100 mg = 1 cap(s), Oral, BID, Refills(s) 0 Start Date: 03/14/24 Status: Ordered Start: 01-18-2024 End: 02-29-2024 take 1 capsule [...] days Aug, Active 24 hr desvenlafaxine succinate 100 mg extended release oral tablet (20 sources) Serotonin and Norepinephrine Reuptake Inhibitor Start: 03-14-2024 take 1 tablet by mouth once daily desvenlafaxine 100 mg Tab- 100 mg = 1 tab(s), Oral, Daily, Refills(s) 0 Start Date: 03/14/24 Status: Ordered Start: 11-02-2018 take 1 tablet by rosario th once daily, then take 1 tablet by mouth every twenty-four hours Desvenlafaxine Succinate (Pristiq) 25 mg Tablet Extended Release 24 Hr Active 25 MG PO Daily November 02, 2018 12:00am Desvenlafaxine S uccinate ER Active dicyclomine hydrochloride 20 mg oral tablet (15 sources) Anticholinergic Start: 06-22-2020 take 1 tablet by mouth three times daily as needed for pain dicyclomine 20 mg Tab 20 mg = 1 tab(s), Oral, TID, PRN abdominal pain, Refills(s) 0 Start Date: 03/14/24 Status: Ordered take 1 tablet by mouth twice sharon ly Dicyclomine HCl 20 MG TAKE 1 TABLET BY MOUTH TWICE A DAY Active 24 hr dilTIAZem hydrochloride 240 mg extended release oral tablet (20 sources) Calcium Channel José Miguel Start: 07-19-2024 take 1 capsule by mouth every twenty-four hours Diltiazem Hcl 240 mg capsule,extended release 24hr Active MG PO July 19, 2024 12:00am Start: 03-14-2024 take 1 tablet by rosario th once daily diltiazem 240 mg/24 hours oral tablet, extended release 240 mg = 1 tab(s), Oral, Daily, Refills(s) 0 Start Date: 03/14/24 Status: Ordered take 1 capsule by mo [facility] once daily, then take 1 capsule by mouth every twenty-four hours dilTIAZem CD (Cardizem CD) 240 MG 24 hr capsule Take 240 mg by mouth Daily Active End: 05-05-2024 take 1 capsule by mouth once daily, then take 1 capsule by mouth every twenty-four hours dilTIAZem CD (Cardizem CD) 180 MG 24 hr capsule Take 180 mg by mouth Daily 05/05/2024 Discontinued (Ineffective) 84 hr estradiol 0.09233 mg/hr transdermal system (10 sources) Estrogen Start: 11-23-2023 End: 08-28-2024 estradiol (VIVELLE-DOT) 0.0375 mg/24 hr patch Apply 1 Patch as directed two times a week. 30 Patch 1 03/01/2024 08/28/2024 Active Estradiol Patch 0.0375 mg/24 hours twice weekly transdermal film, extended release (2 sources) Start: 03-14-2024 Estradiol Patc h 0.0375 mg/24 hours twice weekly transdermal film, extended release 1 patch(es), TransDermal, MonThu, Refill(s) 0 Start Date: 03/14/24 Status: Ordered Excedrin Extra Strength (2 sources) Excedrin Extra S trength PRN Active Excedrin Extra S trength Active fluticasone propionate 0.05 mg/actuat metered dose nasal spray (12 sources) Corticosteroid Start: 11-02-2018 fluticasone (F LONASE) 50 mcg/actuation nasal spray once daily. 11/02/2018 Active Start: 11-02-2018 End: 07-19-2024 Fluticasone Propionate (Flon ase Allergy Relief) 50 mcg/actuation [place],Suspension Discontinued 1 SPRAY INTRANASAL Daily November 02, 2018 12:00am July 19, 2024 10:13am lisinopril 10 mg oral tablet (2 sources) Angiotensin Converting Enzyme Inhibitor Start: 07-19-2024 take 1 tablet by mouth once daily Lisinopril 10 mg tablet Active 10 MG PO Daily July 19, 2024 12:00am loratadine 10 mg oral tablet (14 sources) Start: 11-02-2018 take 1 tablet by mouth once daily Loratadine (Claritin) 10 mg Tablet Active 10 MG PO Daily November 02, 2018 12:00am Claritin Active 24 hr mesalamine 375 mg extended release oral capsule (3 sources) Aminosalicylate Start: 11-03-2018 take 1 capsule by mouth once daily Mesalamine (Apriso) 0.375 gram capsule,extended release 24hr Active 1.5 GM PO Daily 120 November 03, 2018 9:14am Start: 11-03-2018 End: 06-22-2020 take 1 capsule by mouth once daily Mesalamine (Apriso) 0.375 gram capsule,extended release 24hr Discontinued 1.5 GM PO Daily 120 November 03, 2018 12:00am June 22, 2020 11:45am Multi Vitamins oral tablet (2 sources) Start: 03-14-2024 take 1 tablet by mouth once daily Multi Vitamins oral tablet 1 tab(s), Oral, Daily, Refill(s) 0 Start Date: 03/14/24 Status: Ordered Multiple Vitamins-Minerals (CENTRUM SILVER PO) (5 sources) take 1 tablet by mouth once daily Multiple Vitamins-Minerals (CENTRUM SILVER PO) Take 1 tablet by mouth Daily Active pantoprazole 40 mg delayed release oral tablet (20 sources) Proton Pump Inhibitor Start: 11-11-2023 take 1 tablet by mouth every twelve hours pantop[address] (PROTONIX) 40 mg tablet Take 1 tablet by mouth every 12 hours. 11/11/2023 Active Start: 06-22-2020 take 1 tablet by rosario th once daily Pantoprazole 40 mg tablet,delayed release (DR/EC) Active 40 MG PO Daily June 22, 2020 12:00am Start: 05-31-2020 take 1 tablet by rosario th twice daily Pantoprazole [address] Tab 40 mg = 1 tab(s), Oral, BID, Refills(s) 0 Start Date: 03/14/24 Status: Ordered predniSONE (1 source) predniSONE Activ e Completed/Discontinued Medications Medication Drug Class(es) Dates Sig (Normalized) Sig (Original) calcium carbonate 1500 mg oral tablet (2 sources) Start: End: Calcium Carbonate 600 mg calcium (1,500 mg) tablet Discontinued 600 MG PO As Directed June 22, 2020 12:00am July 19, 2024 10:13am cholecalciferol 0.05 mg oral tablet (2 sources) Vitamin D Start: End: 5 Cholecalciferol (Vitamin D3) 50 mcg (2,000 unit) tablet Discontinued 50 MCG PO As Directed June 22, 2020 12:00am July 19, 2024 10:13am methylPREDNISolone (5 sources) Corticosteroid Start: 4 End: 5 methylPREDNISolone (Medrol Dospak) 4 MG tablets Indications: Bilateral plantar fasciitis Follow schedule on package instructions 1 each 09/24/2023 05/05/2024 Discontinued (Ineffective) Start: 09-24-2023 methylPREDNISo lone (Medrol Dospak) 4 MG tablets Indications: Bilateral plantar fasciitis Follow schedule on package instructions 1 each 09/24/2023 Active sucralfate 100 mg/ml oral suspension (2 sources) Aluminum Complex take 10 mL by mouth four times daily Carafate 1 GM/10ML 10 ml on an empty stomach Orally qid Not-Taking topiramate 100 mg oral tablet (4 sources) Start: 11-02-2018 End: 07-19-2024 take 1 tablet by mouth once daily Topiramate 100 mg tablet Discontinued 1 TAB PO Daily November 02, 2018 12:00am July 19, 2024 10:14am Topiramate Activ e Problems Active Problems Problem Classification Problem Date Documented Da te Episodic/Chronic Abdominal pain (7 sources) Abdominal pain; Translations: [Unspecified abdominal pain] Onset: 2 Episodic Anxiety disorders (2 sources) Anxiety 03-14-2024 Chronic Cardiac dysrhythmias (3 sources) Paroxysmal atrial fibrillation; Translations: [Paroxysmal atrial fibrillation] Onset: 4 11-23-2023 Chronic Deficiency and other anemia (1 source) Anemia, unspecified; Translations: [ANEMIA UNSPECIFIED] Onset: 3 Episodic Diabetes mellitus without complication (1 source) Other abnormal glucose; Translations: [OTHER ABNORMAL GLUCOSE] Onset: 3 Episodic Disorders of lipid metabolism (2 sources) Mixed hyperlipidemia; Translations: [Mixed hyperlipidemia] Onset: 5 Chronic Esophageal disorders (18 sources) Gastroesophageal reflux disease; Translations: [Gastro-esophageal reflux disease without esophagitis] Onset: 2 Chronic Comment on above: Problem List clean-u p per request of Phys. EHR Cmte Essential hypertension (6 sources) Essential (primary) hypertension; Translations: [Essential hypertension] Onset: 3 Chronic Gastritis and duodenitis (2 sources) Atrophic gastritis; Translations: [Unspecified chronic gastritis without bleeding] Chronic Gastrointestinal hemorrhage (2 sources) Rectal hemorrhage; Translations: [Hemorrhage of anus and rectum] Episodic Genitourinary symptoms and ill-defined conditions (1 source) Unspecified urinary incontinence; Translations: [Unspecified urinary incontinence] Onset: 5 Chronic Headache; including migraine (3 sources) Migraine with aura; Translations: [Migraine with aura, not intractable, with status migrainosus] 11-23-2023 Chronic Hemorrhoids (2 sources) Hemorrhoids; Translations: [Unspecified hemorrhoids] Episodic Hypertension with complications and secondary hypertension (2 sources) Hypertensive heart disease without heart failure; Translations: [Hypertensive heart disease without heart failure] Onset: 5 Chronic Immunizations and screening for infectious disease (3 sources) Anti-nuclear factor positive; Translations: [Other specified abnormal [...] current use of drug therapy; Translations: [Other alf (current) drug therapy] 01-18-2024 Episodic Other aftercare (1 source) Other alf (current) drug therapy; Translations: [Encounter for long-term (current) use of medications] Onset: 4 Episodic Other bone disease and musculoskeletal deformities (2 sources) Osteopenia 03-14-2024 Episodic Other congenital anomalies (5 sources) Congenital deformity of left toe; Translations: [Congenital deformity of feet, unspecified, left foot] Onset: 4 09-24-2023 Chronic Other congenital anomalies (5 sources) Congenital deformity of right toe; Translations: [Congenital deformity of feet, unspecified, right foot] Onset: 09-24-2023 Chronic Other connective tissue disease (2 sources) Enthesitis; Translations: [Enthesopathy, unspecified] 01-18-2024 Episodic Other connective tissue disease (2 sources) Pain in right foot; Translations: [Pain in right foot] 09-24-2023 Episodic Other connective tissue disease (2 sources) Pain in right heel; Translations: [Pain in right foot] 09-24-2023 Episodic Other connective tissue disease (2 sources) Pain in left foot; Translations: [Pain in left foot] 09-24-2023 Episodic Other connective tissue disease (2 sources) Pain of left heel; Translations: [Pain in left foot] 09-24-2023 Episodic Other connective tissue disease (2 sources) Bilateral plantar fasciitis; Translations: [Plantar fascial fibromatosis] 09-24-2023 Episodic Other gastrointestinal disorders (1 source) Irritable bowel syndrome with diarrhea; Translations: [Irritable bowel syndrome with diarrhea] Chronic Other gastrointestinal disorders (1 source) Irritable bowel syndrome with diarrhea Chronic Other gastrointestinal disorders (1 source) Irritable bowel syndrome; Translations: [Irritable bowel syndrome without diarrhea] 07-19-2024 Chronic Other gastrointestinal disorders (1 source) Irritable bowel syndrome without diarrhea; Translations: [Irritable bowel syndrome] 07-19-2024 Chronic Other gastrointestinal disorders (2 sources) Abnormal [...] disorders (1 source) Overweight; Translations: [Overweight] Onset: Chronic Other nutritional; endocrine; and metabolic disorders (2 sources) Obesity caused by energy imbalance 03-14-2024 Chronic Other screening for suspected conditions (not mental disorders or infectious disease) (2 sources) Cancer cervix screening status; Translations: [Encounter for screening for malignant neoplasm of cervix] 05-04-2024 Episodic Other upper respiratory disease (2 sources) Seasonal allergic rhinitis 03-14-2024 Chronic Regional enteritis and ulcerative colitis (20 sources) Crohn's disease of terminal ileum; Translations: [Crohn's disease of small intestine without complications] Onset: 2 Resolved: 5 Chronic Comment on above: Problem List clean-u p per request of Phys. EHR Cmte Residual codes; unclassified (5 sources) Obstructive sleep apnea syndrome; Translations: [Obstructive sleep apnea (adult) (pediatric)] Onset: 4 09-24-2023 Chronic Spondylosis; intervertebral disc disorders; other back problems (2 sources) Degeneration of cervical intervertebral disc 03-14-2024 Chronic Past or Other Problems Problem Classification Problem Date Documented Da te Episodic/Chronic Acquired foot deformities (5 sources) Acquired equinus deformity of foot; Translations: [Other acquired deformities of unspecified foot] Onset: 09-24-2023 09-24-2023 Episodic Intestinal infection (1 source) Viral intestinal infection, unspecified Onset: 08-29-2021 Resolved: 08-29-2021 Episodic Other lower respiratory disease (2 sources) Snoring; Translations: [Snoring] Onset: 07-01-2023 Episodic Other nutritional; endocrine; and metabolic disorders (1 source) Abnormal weight loss; Translations: [ABNORMAL WEIGHT LOSS] Onset: 08-23-2021 Episodic Results Test Name Value Interpretation Reference Range Facility X-ray reportOrdered By: Daryn Diaz on 07-21-2024 Study report [facility] [place] [address] [place] [address] XRay Report Signed Patient: Essie Steele MR#: [id number] : 1965 Acct:[id number] Age/Sex: 59 / F ADM Date: 5 Loc: XD Room: Type: [facility] Attending Dr: Philippe Wise MD Copies to: [...] Diaz M.D. 07/21/2024 5:51 PM Dictation Location: RADIO-PC-29 Transcribed By: RAJINDER 07/21/241750 Dictated By: Alek Diaz MD 07/21/241749 Signed By: 07/21/241750 [facility] Work Phone: XR KUBon 07-21-2024 XR KUB [facility] [place] [address] [place] [address] XRay Report Signed Patient: Essie Steele MR#: [id number] : 1965 Acct:[id number] Age/Sex: 59 / F ADM Date: 07/21/24 Loc: XD Room: Type: [facility] Attending Dr: Philippe Wise MD Copies to: Philippe Wise MD Ordering Provider: Philippe Wise MD Date of [...] Diaz M.D. 07/21/2024 5:51 PM Dictation Location: RADIO-PC-29 Transcribed By: RAJINDER 07/21/241750 Dictated By: Alek Diaz MD 07/21/241749 Signed By: 07/21/241750 Normal [facility] Office Visiton 06-24-2024 Follow-up visit [id number] Essie Steele 1965 F Date Provider Department Center 06/24/2024 [id number] FATIMA ASHWIN [facility] Family History Problem Relation Age of Onset COPD Mother Cancer Father Heart attack Mother's Brother Hypertension Maternal Grandmother Family Status - Relation Status Age at Mother Father Sister Alive Mother's Brother Maternal Grandmother Level of Service:79598 [place] OFFICE/OUTPATIENT ESTABLISHED MOD MDM 30 MIN Reason for Visit and Comments: 6 month follow up [Other] Hypertension [912026] Atrial Fibrillation [80] Normal [facility] Result: 09-24-2023: Left foot x-rays, weightbearing AP/MO/LAT views, obtained today shows: 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 Narrowed 2nd, 3rd intermetatarsal spaces. Lateral view shows high medial longitudinal arch with increased calcaneal inclination angle, 1st metatarsal is elevated. Os peroneum noted.No visible pathology otherwise noted in terms of heel or foot concern [facility] Radiology Study observation (narrative) [facility] XR Foot - right 3 [facility] Result: 09-24-2023: Right foot x-rays, weightbearing AP/MO/LAT views, obtained today shows: patient was congenital elongation right 2nd toe very narrowed 2nd and 3rd intermetatarsal spaces. Lateral shows good medial longitudinal arch, slightly elevated with 1st metatarsal elevation though parallel with the 2nd. Area of heel pain shows no pathology small retrocalcaneal spur noted. Os peroneum noted. [facility] Radiology Study observation (narrative) [facility] BD DXA - AXIAL SKELETONon BD DXA [...] years, Gender: Female SCANNER INFORMATION: DXA Model: [employer] (S/N: [id number]) Date Scanned: 01/18/2024 9:08 AM CLINICAL HISTORY: [...] had a previous bone density in the [facility] or the previous bone density was performed on a different DXA machine (new, updated model or different location) within the [facility]. VERTEBRAL FRACTURE ASSESSMENT Not performed. TRABECULAR BONE [...] FOR MORE INFORMATION ABOUT DIAGNOSIS AND TREATMENT: [facility] for Osteoporosis and Metabolic Bone Disease:? www.ccf.org/arthritis /osteo National Osteoporosis Foundation:? www.nof.org International Society of Clinical Densitometry www.iscd.org Blending Machine Feeder: [id number] Transcribe Date/Time: Jan 18 2024 9:10A Dictated by : ALEC ARCE MD This examination was interpreted and the report reviewed and electronically signed by: ALEC ARCE MD on Jan 18 2024 9:59PM EST [id number] N -0.1 Normal [facility] BLOOD TB SCREENon 01-18-2024 M. tuberculosis tuberculin stim IFN-g Ql (Bld) Negative Normal [facility] Comment on above: Order Comment: Speci men Type: BLOOD SPECIMEN Ordering Facility: [facility] Address: [address] [place] [address] Performed By: #### I NFTBP #### [facility] CLIA [id number] [address] [place] [address] [place] MITOGEN MINUS NIL >9.97 Normal >=0.50 [facility] Comment on above: Order Comment: Speci men Type: BLOOD SPECIMEN Ordering Facility: [facility] Address: [address] [place] [address] Performed By: #### I NFTBP #### [facility] CLIA [id number] [address] [place] [address] [place] TB GAMMA INTERPRETATION Infection with M. tuberculosis complex is unlikely. If latent tuberculosis infection is highly suspected, a negative result does not rule out the infection. Specimens from immunocompromised patients and those <5 years of age may show false negative results. In case of a contact investigation, please repeat 8-12 weeks after a known exposure. Normal [facility] Comment on above: Order Comment: Lowelli wilfredo Type: BLOOD SPECIMEN Ordering Facility: [facility] Address: [address] [place] [address] Performed By: #### I NFTBP #### [facility] CLIA [id number] [address] [place] [address] STATES OF [facility] TB NIL 0.03 IU/mL Normal <=8.00 [facility] Comment on above: Order Comment: Fernando villalobos Type: BLOOD SPECIMEN Ordering Facility: [facility] Address: [address] [place] [address] Performed By: #### I NFTBP #### [facility] CLIA [id number] [address] [place] [address] [place] TB1 AG MINUS NIL 0.05 IU/mL Normal <0.[address] [facility] Comment on above: Order Comment: Speci men Type: BLOOD SPECIMEN Ordering Facility: [facility] Address: [address] [place] [address] Performed By: #### I NFTBP #### [facility] CLIA [id number] [address] [place] [address] [place] TB2 AG MINUS NIL 0.02 IU/mL Normal <0.[address] [facility] Comment on above: Order Comment: Speci men Type: BLOOD SPECIMEN Ordering Facility: [facility] Address: [address] [place] [address] Performed By: #### I NFTBP #### [facility] CLIA [id number] [address] [place] [address] [place] C-REACTIVE PROTEINon 024 CRP [Mass/Vol] 0.7 mg/dL NINF - 0.9 mg/dL [facility] C3 COMPLEMENTon 01-18-2024 Complement C3 [Mass/Vol] 158 mg/dL 86 - 166 mg/dL [facility] C3 SerPl-mCncon 01-18-2024 Complement C3 [Mass/Vol] 158 mg/dL Normal 86-166 [facility] Comment on above: Order Comment: Speci men Type: BLOOD SPECIMEN Ordering Facility: [facility] Address: [address] [place] [address] Performed By: #### 5 1775-5, 35530-0, 18029-1, 86334-2, 40789-4, 38510-3, 85796-3, 22746-2 #### [facility] CLIA [id number] [address] [place] [address] [place] C4 COMPLEMENTon 01-18-2024 Complement C4 [Mass/Vol] 28 mg/dL 13 - 46 mg/dL [facility] C4 SerPl-mCncon 01-18-2024 Complement C4 [Mass/Vol] 28 mg/dL Normal 13-46 [facility] Comment on above: Order Comment: Speci men Type: BLOOD SPECIMEN Ordering Facility: [facility] Address: [address] [place] [address] Performed By: #### 5 1775-5, 45007-2, 21065-2, 45848-5, 03323-2, 41422-7, 98879-5, 38879-2 #### [facility] CLIA [id number] [address] [place] [address] [id number] [address] [place] CBC W Auto Differential pane l (Bld)on 01-18-2024 Basophils (Bld) [#/Vol] 0.08 10*3/uL [facility] Basophils/100 WBC (Bld) 1.0 % [facility] Differential cell count method Nom (Bld) Auto [facility] Eosinophils (Bld) [#/Vol] 0.32 10*3/uL [facility] Eosinophils/100 WBC (Bld) 4.0 % [facility] Erythrocyte distribution width (RBC) [Ratio] 14.2 % 11.5 - 15.0 % [facility] Hematocrit (Bld) [Volume fraction] 40.8 % 36.0 - 46.0 % [facility] Hemoglobin (Bld) [Mass/Vol] 12.8 g/dL 11.5 - 15.5 g/dL [facility] Immature granulocytes (Bld) [#/Vol] 0.06 10*3/uL [facility] Immature granulocytes/100 WBC (Bld) 0.8 % [facility] Interpretation and review of laboratory results Abnormal [facility] Lymphocytes (Bld) [#/Vol] 1.99 10*3/uL [facility] Lymphocytes/100 WBC (Bld) 25.1 % [facility] MCH (RBC) [Entitic mass] 24.7 pg Low 26.0 - 34.0 pg [facility] MCHC (RBC) [Mass/Vol] 31.4 g/dL 30.5 - 36.0 g/dL [facility] MCV (RBC) [Entitic vol] 78.6 fL Low 80.0 - 100.0 fL [facility] Monocytes (Bld) [#/Vol] 0.54 10*3/uL [facility] Monocytes/100 WBC (Bld) 6.8 % [facility] Neutrophils (Bld) [#/Vol] 4.93 10*3/uL [facility] Neutrophils/100 WBC (Bld) 62.3 % [facility] Nucleated RBC (Bld) [#/Vol] NINF [facility] Nucleated RBC/100 WBC (Bld) [Ratio] 0.0 % /100 WBC [facility] Platelet mean volume (Bld) [Entitic vol] 10.2 fL 9.0 - 12.7 fL [facility] Platelets (Bld) [#/Vol] 292 10*3/uL [facility] RBC (Bld) [#/Vol] 5.19 10*6/uL 3.90 - 5.2 0 m/uL [facility] WBC (Bld) [#/Vol] 7.92 10*3/uL [facility] Basophils (Bld) [#/Vol] 0.08 10*3/uL Normal <0.11 [facility] Comment on above: Order Comment: Speci men Type: BLOOD SPECIMEN Ordering Facility: [facility] Address: [address] [place] [address] Performed By: #### 5 1775-5, 89826-9, 98580-0, 93845-2, 82793-4, 39443-1, 12913-3, 84899-9 #### [facility] CLIA [id number] [address] [place] [address] [place] Basophils/100 WBC (Bld) 1.0 % Normal [facility] Comment on above: Order Comment: Speci men Type: BLOOD SPECIMEN Ordering Facility: [facility] Address: [address] [place] [address] Performed By: #### 5 1775-5, 59018-9, 03597-6, 82243-2, 53043-3, 22126-1, 12749-3, 17585-2 #### [facility] CLIA [id number] [address] [place] [address] [place] Differential cell count method Nom (Bld) Auto Normal [facility] Comment on above: Order Comment: Speci men Type: BLOOD SPECIMEN Ordering Facility: [facility] Address: [address] [place] [address] Performed By: #### 5 1775-5, 51499-7, 31713-2, 63352-9, 31540-5, 36762-2, 33978-9, 08678-6 #### [facility] CLIA [id number] [address] [place] [address] [place] Eosinophils (Bld) [#/Vol] 0.32 10*3/uL Normal <0.46 [facility] Comment on above: Order Comment: Speci men Type: BLOOD SPECIMEN Ordering Facility: [facility] Address: [address] [place] [address] Performed By: #### 5 1774-5, 82747-2, 96341-4, 16359-2, 88217-2, 49004-0, 77094-4, 53483-0 #### [facility] CLIA [id number] [address] [place] [address] [place] Eosinophils/100 WBC (Bld) 4.0 % Normal [facility] Comment on above: Order Comment: Speci men Type: BLOOD SPECIMEN Ordering Facility: [facility] Address: [address] [place] [address] Performed By: #### 5 1774-5, 08212-3, 62786-6, 35688-0, 35177-2, 63056-3, 10977-0, 89445-0 #### [facility] CLIA [id number] [address] [place] [address] [place] Erythrocyte distribution width (RBC) [Ratio] 14.2 % Normal 11.5-15.0 [facility] Comment on above: Order Comment: Speci men Type: BLOOD SPECIMEN Ordering Facility: [facility] Address: [address] [place] [address] Performed By: #### 5 5-5, 97527-5, 60577-2, 95506-7, 46703-6, 01188-2, 41676-5, 30139-5 #### [facility] CLIA [id number] [address] [place] [address] [place] Hematocrit (Bld) [Volume fraction] 40.8 % Normal 36.0-46.0 [facility] Comment on above: Order Comment: Speci men Type: BLOOD SPECIMEN Ordering Facility: [facility] Address: [address] [place] [address] Performed By: #### 5 1775-5, 32380-6, 23943-1, 79550-3, 52486-5, 05807-8, 52349-9, 19611-0 #### [facility] CLIA [id number] [address] [place] [address] [place] Hemoglobin (Bld) [Mass/Vol] 12.8 g/dL Normal 11.5-15.5 [facility] Comment on above: Order Comment: Speci men Type: BLOOD SPECIMEN Ordering Facility: [facility] Address: [address] [place] [address] Performed By: #### 5 5-5, 32592-6, 13315-6, 72073-1, 56746-9, 01530-0, 04826-4, 90382-2 #### [facility] CLIA [id number] [address] [place] [address] [place] Immature granulocytes (Bld) [#/Vol] 0.06 10*3/uL Normal <0.10 [facility] Comment on above: Order Comment: Speci men Type: BLOOD SPECIMEN Ordering Facility: [facility] Address: [address] [place] [address] Performed By: #### 5 1775-5, 65125-0, 41049-3, 41173-4, 42226-0, 39361-8, 82376-1, 52257-1 #### [facility] CLIA [id number] [address] [place], [place] [address] [place] Immature granulocytes/100 WBC (Bld) 0.8 % Normal [facility] Comment on above: Order Comment: Speci men Type: BLOOD SPECIMEN Ordering Facility: [facility] Address: [address] [place] [address] Performed By: #### 5 1775-5, 93530-6, 59917-1, 99508-2, 10159-5, 34698-7, 27873-4, 88169-9 #### [facility] CLIA [id number] [address] [place] [address] [place] Lymphocytes (Bld) [#/Vol] 1.99 10*3/uL Normal 1.00-4.00 [facility] Comment on above: Order Comment: Speci men Type: BLOOD SPECIMEN Ordering Facility: [facility] Address: [address] [place] [address] Performed By: #### 5 1775-5, 66641-5, 09989-0, 20483-9, 27193-2, 24757-2, 52072-2, 08145-8 #### [facility] CLIA [id number] [address] [place] [address] [place] Lymphocytes/100 WBC (Bld) 25.1 % Normal [facility] Comment on above: Order Comment: Speci men Type: BLOOD SPECIMEN Ordering Facility: [facility] Address: [address] [place] [address] Performed By: #### 5 1775-5, 73720-1, 70664-3, 92982-5, 14907-8, 71653-9, 61460-3, 41781-6 #### [facility] CLIA [id number] [address] [place] [address] [place] MCH (RBC) [Entitic mass] 24.7 pg Low 26.0-34.0 [facility] Comment on above: Order Comment: Speci men Type: BLOOD SPECIMEN Ordering Facility: [facility] Address: [address] [place] [address] Performed By: #### 5 1775-5, 51312-6, 48627-6, 97609-2, 13758-2, 93169-0, 07776-1, 17383-2 #### [facility] CLIA [id number] [address] [place] [address] [place] MCHC (RBC) [Mass/Vol] 31.4 g/dL Normal 30.5-36.[address] [facility] Comment on above: Order Comment: Speci men Type: BLOOD SPECIMEN Ordering Facility: [facility] Address: [address] [place] [address] Performed By: #### 5 5-5, 37034-8, 97861-3, 29391-1, 61365-8, 18846-3, 72706-0, 68563-8 #### [facility] CLIA [id number] [address] [place] [address] [place] MCV (RBC) [Entitic vol] 78.6 fL Low 80.0-100.0 [facility] Comment on above: Order Comment: Speci men Type: BLOOD SPECIMEN Ordering Facility: [facility] Address: [address] [place] [address] Performed By: #### 5 5-5, 88048-1, 26992-9, 00254-1, 94638-8, 14091-1, 58144-8, 81929-0 #### [facility] CLIA [id number] [address] [place] [address] [place] Monocytes (Bld) [#/Vol] 0.54 10*3/uL Normal <0.87 [facility] Comment on above: Order Comment: Speci men Type: BLOOD SPECIMEN Ordering Facility: [facility] Address: [address] [place] [address] Performed By: #### 5 1775-5, 77458-6, 39940-3, 37221-3, 03155-7, 51859-5, 73397-6, 27353-1 #### [facility] CLIA [id number] [address] [place] [address] [place] Monocytes/100 WBC (Bld) 6.8 % Normal [facility] Comment on above: Order Comment: Speci men Type: BLOOD SPECIMEN Ordering Facility: [facility] Address: [address] [place] [address] Performed By: #### 5 1775-5, 63231-1, 99726-5, 84090-4, 18605-6, 39322-1, 08258-9, 85472-0 #### [facility] CLIA [id number] [address] [place] [address] [place] Neutrophils (Bld) [#/Vol] 4.93 10*3/uL Normal 1.45-7.50 [facility] Comment on above: Order Comment: Speci men Type: BLOOD SPECIMEN Ordering Facility: [facility] Address: [address] [place] [address] Performed By: #### 5 1775-5, 93813-3, 24921-6, 26304-4, 09442-2, 41690-8, 28890-7, 44762-4 #### [facility] CLIA [id number] [address] [place] [address] [place] Neutrophils/100 WBC (Bld) 62.3 % Normal [facility] Comment on above: Order Comment: Speci men Type: BLOOD SPECIMEN Ordering Facility: [facility] Address: [address] [place] [address] Performed By: #### 5 1775-5, 14406-3, 14608-4, 81909-4, 08775-3, 11920-0, 96271-6, 35873-5 #### [facility] CLIA [id number] [address] [place] [address] [place] Nucleated RBC (Bld) [#/Vol] 10*3/uL Normal <0.01 [facility] Comment on above: Order Comment: Speci men Type: BLOOD SPECIMEN Ordering Facility: [facility] Address: [address] [place] [address] Performed By: #### 5 5-5, 46708-0, 27815-4, 72535-9, 10430-8, 21292-9, 43780-0, 50507-3 #### [facility] CLIA [id number] [address] [place] [address] [place] Nucleated RBC/100 WBC (Bld) [Ratio] 0.0 /100 WBC Normal [facility] Comment on above: Order Comment: Speci men Type: BLOOD SPECIMEN Ordering Facility: [facility] Address: [address] [place] [address] Performed By: #### 5 1774-5, 05323-0, 99549-3, 88268-8, 39634-1, 37408-1, 86125-1, 36437-0 #### [facility] CLIA [id number] [address] [place] [address] [place] Platelet mean volume (Bld) [Entitic vol] 10.2 fL Normal 9.0-12.7 [facility] Comment on above: Order Comment: Speci men Type: BLOOD SPECIMEN Ordering Facility: [facility] Address: [address] [place] [address] Performed By: #### 5 1774-5, 97779-0, 17970-3, 10240-1, 87965-6, 99457-0, 61830-1, 35834-2 #### [facility] CLIA [id number] [address] [place] [address] [place] Platelets (Bld) [#/Vol] 292 10*3/uL Normal 150-400 [facility] Comment on above: Order Comment: Speci men Type: BLOOD SPECIMEN Ordering Facility: [facility] Address: [address] [place] [address] Performed By: #### 5 1774-5, 30677-7, 01179-5, 22878-4, 00430-2, 35298-7, 71982-1, 19269-5 #### [facility] CLIA [id number] [address] [place] [address] [place] RBC (Bld) [#/Vol] 5.19 10*6/uL Normal 3.90-5.20 [facility] Comment on above: Order Comment: Speci men Type: BLOOD SPECIMEN Ordering Facility: [facility] Address: [address] [place] [address] Performed By: #### 5 1775-5, 39992-5, 13927-8, 90573-2, 06286-7, 03657-2, 26704-3, 75618-7 #### [facility] CLIA [id number] [address] [place] [address] [place] WBC (Bld) [#/Vol] 7.92 10*3/uL Normal 3.70-11.00 [facility] Comment on above: Order Comment: Speci men Type: BLOOD SPECIMEN Ordering Facility: [facility] Address: [address] [place] [address] Performed By: #### 5 1775-5, 62772-5, 23297-5, 18888-9, 63174-9, 02477-4, 00355-0, 92500-9 #### [facility] CLIA [id number] [address] [place] [address] [place] CNOVon 01-18-2024 CNOV Office Visit (RHEUMN ) ESSIE STEELE ([id number]) 1965 F Date Time Provider Department 01/18/24 10:00 AM RENNY BARON During your visit today, we recorded the following information about you: Temperature Pulse Blood pressure Weight 97.2 degrees 68/minute 153/100 109.2 kg Height 1.689 m Renny Baron MD 01/18/2024 6:39 PM Signed Rheumatology CONSULTATION Date of Service: 01/18/2024 Patient: Essie Steele Primary Care Physician: Brett Paniagua ([place], [place]) Last Rheumatology visit: None at [facility] Referring Provider: Kristy Evangelista [address] [facility] [address] Essie Steele is here today at request of Dr. Evangelista specifically for consultation of my opinion in regards to the chief complaint listed below. Correspondence will be shared today via the [facility] electronic health record or through [...] ) Review (more content not included)... Normal [facility] CRP SerPl-mCncon 01-18-2024 CRP [Mass/Vol] 0.7 mg/dL Normal <0.9 [facility] Comment on above: Order Comment: Fernando villalobos Type: BLOOD SPECIMEN Ordering Facility: [facility] Address: [address] [place] [address] Performed By: #### 5 1775-5, 84375-1, 89974-0, 00246-2, 98954-5, 96136-5, 71350-0, 46734-3 #### [facility] CLIA [id number] [address] [place] [address] [place] Centromere Ab IF Ql (S)on Centromere Ab Qn (S) <0.2 Normal <1.0 [facility] Comment on above: Order Comment: Fernando villalobos Type: BLOOD SPECIMEN Ordering Facility: [facility] Address: [address] [place] [address] Result Comment: Anti -centromere antibody is used as in aid in diagnosis of systemic sclerosis. Clinical correlation is required. Test Methodology: Multiplex flow immunoassay. Performed By: #### 5 1775-5, 19536-1, 29398-9, 16994-1, 16581-8, 35205-8, 04730-9, 37383-0 #### [facility] CLIA [id number] [address] [place] [address] [place] CENTROMERE AB QUAL Negative Normal Negative [facility] Comment on above: Order Comment: Fernando villalobos Type: BLOOD SPECIMEN Ordering Facility: [facility] Address: [address] [place] [address] Performed By: #### 5 1775-5, 66717-1, 91072-4, 02865-8, 43759-5, 43627-9, 32012-9, 94394-2 #### [facility] CLIA [id number] [address] [place] [address] [place] Chromatin Ab Qnon 01-18-2024 CHROMATIN AB QUAL Negative Normal Negative [facility] Comment on above: Order Comment: Speci men Type: BLOOD SPECIMEN Ordering Facility: [facility] Address: [address] [place] [address] Performed By: #### 5 1775-5, 97087-5, 57060-3, 77206-8, 06065-4, 61973-0, 79852-7, 51465-0 #### [facility] CLIA [id number] [address] [place] [address] [place] Chromatin Ab SerPl-aCncon Chromatin Ab Qn <0.2 Normal <1.0 [facility] Comment on above: Order Comment: Speci men Type: BLOOD SPECIMEN Ordering Facility: [facility] Address: [address] [place] [address] Result Comment: Test Methodology: Multiplex flow immunoassay. Performed By: #### 5 1775-5, 86114-1, 01424-5, 79838-3, 45102-6, 41373-6, 99604-7, 41476-5 #### [facility] CLIA [id number] [address] [place] [address] [place] Comprehensive metabolic 2000 panelon 01-18-2024 Albumin [Mass/Vol] 4.4 g/dL 3.9 - 4.9 g/dL [facility] ALP [Catalytic activity/Vol] 148 U/L High 34 - 123 U/L [facility] ALT [Catalytic activity/Vol] 20 U/L 7 - 38 U/L [facility] Anion gap [Moles/Vol] 12 mmol/L 8 - 15 mmol/L [facility] AST [Catalytic activity/Vol] 25 U/L 13 - 35 U/L [facility] Bilirubin [Mass/Vol] 0.4 mg/dL 0.2 - 1 .3 mg/dL [facility] Calcium [Mass/Vol] 9.2 mg/dL 8.5 - 10. 2 mg/dL [facility] Chloride [Moles/Vol] 102 mmol/L 98 - 10 7 mmol/L [facility] CO2 [Moles/Vol] 26 mmol/L 22 - 30 mmol/L [facility] Creatinine [Mass/Vol] 0.59 mg/dL 0.58 - 0.96 mg/dL [facility] GFR/1.73 sq M.predicted among non-blacks MDRD (S/P/Bld) [Vol rate/Area] 105 mL/min/{1.73_m2} - PINF [facility] Comment on above: Estimated Glomerular Filtration Rate [...] mg/dL 74 - 99 mg/dL [facility] Comment on above: The [place] Di[employer] Association (ADA) provides guidance for [...] Standards of Medical Care in Diabetes 2016, [place] [employer]. Diabetes Care. 2016.39(Suppl 1). Interpretation and review of laboratory results Abnormal [facility] Potassium [Moles/Vol] 3.7 mmol/L 3.7 - 5.1 mmol/L [facility] Protein [Mass/Vol] 7.3 g/dL 6.3 - 8.0 g/dL [facility] Sodium [Moles/Vol] 140 mmol/L 136 - 144 mmol/L [facility] Urea nitrogen [Mass/Vol] 12 mg/dL 7 - 21 mg/dL [facility] Albumin [Mass/Vol] 4.4 g/dL Normal 3.9-4.9 [facility] Comment on above: Order Comment: Speci men Type: BLOOD SPECIMEN Ordering Facility: [facility] Address: [address] [place] [address] Performed By: #### 5 1775-5, 61127-0, 41562-8, 35263-1, 62235-0, 78477-3, 99365-7, 74058-6 #### [facility] CLIA [id number] [address] [place] [address] [place] ALP [Catalytic activity/Vol] 148 U/L High 34-123 [facility] Comment on above: Order Comment: Speci men Type: BLOOD SPECIMEN Ordering Facility: [facility] Address: [address] [place] [address] Performed By: #### 5 1775-5, 46657-7, 44641-0, 56524-8, 55640-4, 36519-1, 62519-0, 84651-7 #### [facility] CLIA [id number] [address] [place] [address] [place] ALT [Catalytic activity/Vol] 20 U/L Normal 7-38 [facility] Comment on above: Order Comment: Speci men Type: BLOOD SPECIMEN Ordering Facility: [facility] Address: [address] [place] [address] Performed By: #### 5 1775-5, 04782-3, 02926-3, 39880-2, 66030-3, 07775-1, 27516-4, 63886-4 #### [facility] CLIA [id number] [address] [place] [address] [place] Anion gap [Moles/Vol] 12 mmol/L Normal 8-[address] [facility] Comment on above: Order Comment: Speci men Type: BLOOD SPECIMEN Ordering Facility: [facility] Address: [address] [place] [address] Performed By: #### 5 1775-5, 94550-5, 16418-4, 20036-8, 84248-4, 75543-7, 35718-0, 84502-1 #### [facility] CLIA [id number] [address] [place] [address] [place] AST [Catalytic activity/Vol] 25 U/L Normal 13-35 [facility] Comment on above: Order Comment: Speci men Type: BLOOD SPECIMEN Ordering Facility: [facility] Address: [address] [place] [address] Performed By: #### 5 1775-5, 52875-6, 51327-2, 82033-1, 30577-5, 94007-0, 21041-5, 05799-9 #### [facility] CLIA [id number] [address] [place] [address] [place] Bilirubin [Mass/Vol] 0.4 mg/dL Normal 0.2-1.3 [facility] Comment on above: Order Comment: Speci men Type: BLOOD SPECIMEN Ordering Facility: [facility] Address: [address] [place] [address] Performed By: #### 5 1775-5, 11354-4, 05998-2, 20617-1, 27924-7, 39647-3, 89036-6, 22363-7 #### [facility] CLIA [id number] [address] [place] [address] [place] Calcium [Mass/Vol] 9.2 mg/dL Normal 8.5-10.2 [facility] Comment on above: Order Comment: Speci men Type: BLOOD SPECIMEN Ordering Facility: [facility] Address: [address] [place] [address] Performed By: #### 5 1775-5, 05935-1, 94483-5, 60598-5, 72321-7, 39002-0, 94181-0, 88241-8 #### [facility] CLIA [id number] [address] [place] [address] [place] Chloride [Moles/Vol] 102 mmol/L Normal 98-107 [facility] Comment on above: Order Comment: Speci men Type: BLOOD SPECIMEN Ordering Facility: [facility] Address: [address] [place] [address] Performed By: #### 5 5-5, 66729-8, 78707-9, 12342-8, 49269-4, 15160-2, 84217-3, 00704-6 #### [facility] CLIA [id number] [address] [place] [address] [place] CO2 [Moles/Vol] 26 mmol/L Normal 22-30 [facility] Comment on above: Order Comment: Speci men Type: BLOOD SPECIMEN Ordering Facility: [facility] Address: [address] [place] [address] Performed By: #### 5 5-5, 09745-0, 29482-4, 57020-7, 92933-9, 77736-9, 76610-8, 14092-8 #### [facility] CLIA [id number] [address] [place] [address] [place] Creatinine [Mass/Vol] 0.59 mg/dL Normal 0.58-0.[address] [facility] Comment on above: Order Comment: Speci men Type: BLOOD SPECIMEN Ordering Facility: [facility] Address: [address] [place] [address] Performed By: #### 5 1775-5, 49358-8, 66556-1, 96833-7, 62354-5, 37011-4, 14874-8, 66740-2 #### [facility] CLIA [id number] [address] [place] [address] [place] Creatinine and Glomerular filtration rate.predicted panel (S/P/Bld) 105 mL/min/1.73m??? Normal >=60 [facility] Comment on above: Order Comment: Fernando villalobos Type: BLOOD SPECIMEN Ordering Facility: [facility] Address: [address] [place] [address] Result Comment: Oanh mated Glomerular Filtration Rate [...] actual GFR. Performed By: #### 5 1775-5, 09931-6, 97316-1, 02478-2, 12373-6, 39512-6, 51303-4, 33276-3 #### [facility] CLIA [id number] [address] [place], [place] [address] [address] [facility] Glucose [Mass/Vol] 91 mg/dL Normal 74-99 [facility] Comment on above: Order Comment: Fernando villalobos Type: BLOOD SPECIMEN Ordering Facility: [facility] Address: [address] [place] [address] Result Comment: The [place] Diabetes Association (ADA) provides guidance for cutoff [...] Standards of Medical Care in Diabetes 2016, [place] [employer]. Diabetes Care. 2016.39(Suppl 1). Performed By: #### 5 1775-5, 40344-2, 58053-9, 37478-6, 62643-7, 59689-3, 62473-7, 95508-8 #### [facility] CLIA [id number] [address] [place] [address] [place] Potassium [Moles/Vol] 3.7 mmol/L Normal 3.7-5.[address] [facility] Comment on above: Order Comment: Speci men Type: BLOOD SPECIMEN Ordering Facility: [facility] Address: [address] [place] [address] Performed By: #### 5 1775-5, 43227-2, 01924-7, 50278-0, 09311-5, 63876-6, 61269-1, 64757-8 #### [facility] CLIA [id number] [address] [place] [address] [place] Protein [Mass/Vol] 7.3 g/dL Normal 6.3-8.0 [facility] Comment on above: Order Comment: Speci men Type: BLOOD SPECIMEN Ordering Facility: [facility] Address: [address] [place] [address] Performed By: #### 5 1775-5, 42001-7, 82406-4, 42442-4, 44528-1, 09517-1, 10998-8, 33090-3 #### [facility] CLIA [id number] [address] [place] [address] [place] Sodium [Moles/Vol] 140 mmol/L Normal 136-144 [facility] Comment on above: Order Comment: Speci men Type: BLOOD SPECIMEN Ordering Facility: [facility] Address: [address] [place] [address] Performed By: #### 5 1775-5, 10695-2, 50927-0, 78572-4, 07128-7, 11712-3, 90323-1, 54040-2 #### [facility] CLIA [id number] [address] [place], [place] [id number] [place] Urea nitrogen [Mass/Vol] 12 mg/dL Normal 7-21 [facility] Comment on above: Order Comment: Speci men Type: BLOOD SPECIMEN Ordering Facility: [facility] Address: [address] [place] [address] Performed By: #### 5 1775-5, 26468-0, 09696-4, 35688-7, 71185-7, 43020-9, 93087-3, 71336-4 #### [facility] CLIA [id number] [address] [place] [address] [place] Cyclic citrullinated peptide IgG Qnon 01-18-2024 [facility] ANTIBODY IGG QUALITATIVE Negative Normal Negative [facility] Comment on above: Order Comment: Speci men Type: BLOOD SPECIMEN Ordering Facility: [facility] Address: [address] [place] [address] Performed By: #### 5 1775-5, 75964-8, 55217-5, 61158-2, 22384-0, 29677-6, 06201-8, 58673-1 #### [facility] CLIA [id number] [address] [place] [address] [place] DNA double strand Ab IA Qn ( S)on 01-18-2024 DNA ANTIBODY 29 IU/mL Normal <=200 [facility] Comment on above: Order Comment: Speci men Type: BLOOD SPECIMEN Ordering Facility: [facility] Address: [address] [place] [address] Result Comment: Nega tive: <200 IU/mL Equivocal: 201-300 IU/mL Moderate Positive: 301-800 IU/mL Strong Positive: >801 IU/mL Performed By: #### 5 1775-5, 05827-8, 51249-0, 54054-9, 74353-2, 48951-9, 63527-3, 56693-2 #### [facility] CLIA [id number] [address] [place] [address] [place] DNA ANTIBODY QUALITATIVE INTERPRETATION Negative Normal Negative [facility] Comment on above: Order Comment: Speci men Type: BLOOD SPECIMEN Ordering Facility: [facility] Address: [address] [place] [address] Performed By: #### 5 1775-5, 76984-0, 61802-7, 84637-1, 01047-5, 77691-8, 44794-8, 72525-3 #### [facility] CLIA [id number] [address] [place] [address] [place] [address] [place] DXA Skeletal system.axial Vi ews for bone densityOrdered By: Ccf Provider on 01-18-2024 LOWEST T-SCORE -0.1 [facility] DXA Skeletal system.axial Vi ews for bone [...] FOR MORE INFORMATION ABOUT DIAGNOSIS AND TREATMENT: [facility] for Osteoporosis and Metabolic Bone Disease:? [email or web address] /[email or web address] National Osteoporosis Foundation:? www.nof.org International Society of Clinical Densitometry www.iscd.org Blending Machine Feeder: [id number] Transcribe Date/Time: Jan 18 2024 9:10A Dictated by : ALEC ARCE MD This examination was interpreted and the report reviewed and electronically signed by: ALEC ARCE MD on Jan 18 2024 9:59PM [facility] DIVISION OF RADIOLOGY * * *Final Report* [...] Gender: Female SCANNER INFORMATION: DXA Model: A21 [employer] (S/N: [id number]) Date Scanned: 01/18/2024 9:08 AM CLINICAL HISTORY: [...] had a previous bone density in the [facility] or the previous bone density was performed on a different DXA machine (new, updated model or different location) within the [facility]. VERTEBRAL FRACTURE ASSESSMENT Not performed. TRABECULAR BONE ASSESSMENT TBS not performed: BMI outside recommended range for calculation of TBS. DIVISION OF RADIOLOGY Provider, [facility] - 01/18/2024 * * *Final Report* * * DATE OF EXAM: Jan 18 2024 9:08AM [facility] 0804 - BD DXA - AXIAL SKELETON / PROCEDURE REASON: Symptomatic menopausal or female climacteric states * * * * Physician Interpretation * * * * EXAMINATION: DXA BONE DENSITOMETRY BD DXA - AXIAL SKELETON PATIENT DEMOGRAPHICS: Age: 59 years, Gender: Female SCANNER INFORMATION: DXA Model: A21 [employer] (S/N: [id number]) Date Scanned: 01/18/2024 9:08 AM CLINICAL HISTORY: [...] had a previous bone density in the [facility] or the previous bone density was performed on a different DXA machine (new, updated model or different location) within the [facility]. VERTEBRAL FRACTURE ASSESSMENT Not performed. TRABECULAR BONE [...] FOR MORE INFORMATION ABOUT DIAGNOSIS AND TREATMENT: [facility] for Osteoporosis and Metabolic Bone Disease:? [email or web address] /osteo National Osteoporosis Foundation:? www.nof.org International Society of Clinical Densitometry www.iscd.org Blending Machine Feeder: [id number] Transcribe Date/Time: Jan 18 2024 9:10A Dictated by : ALEC ARCE MD This examination was interpreted and the report reviewed and electronically signed by: ALEC ARCE MD on Jan 18 2024 9:59PM EST [facility] Study observation (narrative) [facility] GAYATRI Jo1 Ab Ser-aCncon 2023 Cyndi-1 extractable nuclear Ab Qn (S) <0.2 Normal <1.0 [facility] Comment on above: Order Comment: Speci men Type: BLOOD SPECIMEN Ordering Facility: [facility] Address: [address] [place], [place] [address] [id number] Performed By: #### 5 1775-5, 44518-9, 60700-6, 48374-1, 26443-8, 47905-9, 46957-7, 46144-8 #### [facility] CLIA [id number] [address] [place] [address] [place] GAYATRI CYLINDRICAL MIXER Ab Ser-aCncon 2023 Ribonucleoprotein extractable nuclear Ab Qn (S) <0.2 Normal <1.0 [facility] Comment on above: Order Comment: Speci men Type: BLOOD SPECIMEN Ordering Facility: [facility] Address: [address] [place] [address] Performed By: #### 5 5-5, 30396-8, 76115-6, 80343-2, 21801-7, 16092-1, 14729-4, 64763-2 #### [facility] CLIA [id number] [address] [place] [address] [place] GAYATRI SM IgG Ser-aCncon 2023 Faulkner extractable nuclear IgG Qn (S) <0.2 Normal <1.0 [facility] Comment on above: Order Comment: Speci men Type: BLOOD SPECIMEN Ordering Facility: [facility] Address: [address] [place] [address] Performed By: #### 5 5-5, 30127-3, 29094-7, 05853-8, 88157-7, 30161-0, 97774-0, 92562-7 #### [facility] CLIA [id number] [address] [place] [address] [place] GAYATRI SS-A Ab Ser-aCncon 01-17 Sjogrens syndrome-A extractable nuclear Ab Qn (S) <0.2 Normal <1.0 [facility] Comment on above: Order Comment: Speci men Type: BLOOD SPECIMEN Ordering Facility: [facility] Address: [address] [place] [address] Result Comment: Test Methodology: Multiplex flow immunoassay. Performed By: #### 5 1775-5, 95561-8, 23486-9, 01827-1, 43246-2, 76277-9, 64748-5, 31594-9 #### [facility] CLIA [id number] [address] [place] [address] [place] GAYATRI SS-B Ab Ser-aCncon 01-17 Sjogrens syndrome-B extractable nuclear Ab Qn (S) <0.2 Normal <1.0 [facility] Comment on above: Order Comment: Speci men Type: BLOOD SPECIMEN Ordering Facility: [facility] Address: [address] [place] [address] Result Comment: Anti -SSB (anti-La) antibody is used as an aid in diagnosis of a variety of systemic autoimmune diseases, especially for Sjogren's syndrome and systemic lupus erythematosus. Clinical correlation is required. Test Methodology: Multiplex flow immunoassay. Performed By: #### 5 1775-5, 27315-1, 60237-7, 88063-2, 21012-0, 77061-0, 44142-1, 72872-7 #### [facility] CLIA [id number] [address] [place] [address] [place] ESR Westergren method (Bld) [Velocity]on 01-18-2024 ESR (Bld) [Velocity] 12 mm/h [facility] Interpretation and review of laboratory results Normal [facility] ESR (Bld) [Velocity] 12 mm/h Normal 0-20 [facility] Comment on above: Order Comment: Speci men Type: BLOOD SPECIMEN Ordering Facility: [facility] Address: [address] [place] [address] Performed By: #### 5 1775-5, 84953-7, 69818-6, 82587-6, 48282-8, 99965-3, 28744-4, 91307-6 #### [facility] CLIA [id number] [address] [place] [address] [place] HBV core Ab Ser Qlon 024 HBV core Ab Ql (S) Negative Normal Negative [facility] Comment on above: Order Comment: Fernando villalobos Type: BLOOD SPECIMEN Ordering Facility: [facility] Address: [address] [place] [address] Result Comment: No e vidence of current or past infection with Hepatitis B virus. Should recent infection be suspected, repeat testing may be considered 3-4 weeks after this draw. Performed By: #### 5 1775-5, 89151-6, 65983-2, 67594-7, 11161-7, 00948-9, 05732-5, 67595-5 #### [facility] CLIA [id number] [address] [place] [address] [place] HBV surface Ab Ql (S)on 12-25 HBV surface Ab Qn (S) 120.75 mIU/mL Normal [facility] Comment on above: Order Comment: Fernando villalobos Type: BLOOD SPECIMEN Ordering Facility: [facility] Address: [address] [place] [address] Result Comment: <8 m IU/mL: No serological evidence of immunity to Hepatitis B Virus. >/= 8 to <12 mIU/mL: No serological evidence of immunity to Hepatitis B Virus. >/= 12 mIU/mL: Consistent with serological evidence of immunity to Hepatitis B Virus. Performed By: #### 5 1775-5, 08347-9, 83939-7, 62290-9, 97001-7, 71366-0, 08365-0, 74064-8 #### [facility] CLIA [id number] [address] [place] [address] [place] HBV surface Ab Ser Qlon 12-25 HBV surface Ab Ql (S) Positive Normal [facility] Comment on above: Order Comment: Fernando villalobos Type: BLOOD SPECIMEN Ordering Facility: [facility] Address: [address] [place] [address] Result Comment: Cons istent with serological evidence of immunity to Hepatitis B Virus. Performed By: #### 5 1775-5, 02711-0, 81455-3, 94704-1, 71365-0, 32109-3, 82123-9, 26322-2 #### [facility] CLIA [id number] [address] [place] [address] [place] HBV surface Ag Ser Qlon 12-25 HBV surface Ag Ql (S) Negative Normal Negative [facility] Comment on above: Order Comment: Specalysa villalobos Type: BLOOD SPECIMEN Ordering Facility: [facility] Address: [address] [place] [address] Performed By: #### 5 1775-5, 17111-1, 48113-0, 52915-4, 55553-1, 23783-9, 99809-6, 64088-5 #### [facility] CLIA [id number] [address] [place] [address] [place] HCV Ab Ser Qlon 01-18-2024 HCV Ab Ql (S) Negative Normal Negative [facility] Comment on above: Order Comment: Fernando villalobos Type: BLOOD SPECIMEN Ordering Facility: [facility] Address: [address] [place] [address] Result Comment: The result suggests no evidence of active infection with Hepatitis C virus. Should recent infection be suspected, repeat testing may be considered 4-6 weeks after this draw. Performed By: #### 5 1775-5, 85590-8, 31616-6, 28267-0, 28008-2, 61043-2, 77869-8, 28119-2 #### [facility] CLIA [id number] [address] [place] [address] [place] Cyndi-1 extractable nuclear Ab Qn (S)on 01-18-2024 CYNDI 1 ANTIBODY QUAL Negative Normal Negative [facility] Comment on above: Order Comment: Fernando villalobos Type: BLOOD SPECIMEN Ordering Facility: [facility] Address: [address] [place] [address] Result Comment: Anti -CYNDI-1 antibody is used as an aid in diagnosis of polymyositis and dermatomyositis especially with pulmonary involvement. A negative result cannot rule out polymyositis or dermatomyositis. Clinical correlation is required. Test Methodology: Multiplex flow immunoassay. Performed By: #### 5 1775-5, 46815-7, 61794-6, 19723-9, 52363-5, 41320-1, 56034-2, 29855-8 #### [facility] CLIA [id number] [address] [place] [address] [place] No Panel Informationon 01-17 Interpretation and review of laboratory results Normal [facility] RHEUMATOID FACTORon 01-18-20 Rheumatoid factor Qn 12 [IU]/mL NINF [facility] Rheumatoid fact SerPl-aCncon 01-18-2024 Rheumatoid factor Qn 12 [IU]/mL Normal <16 [facility] Comment on above: Order Comment: Speci men Type: BLOOD SPECIMEN Ordering Facility: [facility] Address: [address] [place] [address] Performed By: #### 5 1775-5, 24543-5, 31145-1, 84964-0, 25001-6, 12032-6, 31152-8, 66336-0 #### [facility] CLIA [id number] [address] [place] [address] [place] Rheumatoid factor Qnon 01-17 Interpretation and review of laboratory results Normal [facility] Ribonucleoprotein extractabl e nuclear Ab Qn (S)on 01-18-2024 ANTI-CYLINDRICAL MIXER QUAL Negative Normal Negative [facility] Comment on above: Order Comment: Speci men Type: BLOOD SPECIMEN Ordering Facility: [facility] Address: [address] [place] [address] Performed By: #### 5 1775-5, 53857-2, 59499-6, 03720-4, 80813-8, 10835-6, 09985-2, 64072-9 #### [facility] CLIA [id number] [address] [place] [address] [place] RIBOSOMAL CYLINDRICAL MIXER QUAL Negative Normal Negative [facility] Comment on above: Order Comment: Fernando villalobos Type: BLOOD SPECIMEN Ordering Facility: [facility] Address: [address] [place] [address] Result Comment: Anti -Ribosomal RNA (Ribosomal P) antibody is used as an aid in diagnosis of systemic autoimmune diseases especially systemic lupus erythematosus and mixed connective tissue disease. Cross-reactivity with Anti-faulkner antibody is not uncommon. Clinical correlation is required. Test Methodology: Multiplex flow immunoassay. Performed By: #### 5 1775-5, 82594-4, 20717-8, 02675-8, 84757-1, 92544-8, 55511-5, 84881-1 #### [facility] CLIA [id number] [address] [place] [address] [place] SCL-70 extractable nuclear I gG IA Qn (S)on 01-18-2024 SCLERODERMA AB QUAL Negative Normal Negative [facility] Comment on above: Order Comment: Fernando villalobos Type: BLOOD SPECIMEN Ordering Facility: [facility] Address: [address] [place] [address] Performed By: #### 5 5-5, 87660-2, 72937-0, 47049-3, 45905-3, 59443-5, 83731-8, 92004-0 #### [facility] CLIA [id number] [address] [place] [address] [place] SCLERODERMA IGG AB <0.2 Normal <1.0 [facility] Comment on above: Order Comment: Fernando villalobos Type: BLOOD SPECIMEN Ordering Facility: [facility] Address: [address] [place] [address] Result Comment: Scl- 70/Scleroderma antibody test is used as an aid in diagnosis of systemic sclerosis especially the diffuse cutaneous form. A negative result cannot rule out systemic sclerosis. The final interpretation should consider clinical picture and other test results such as anti-centromere antibody. Test Methodology: Multiplex flow immunoassay. Performed By: #### 5 1775-5, 56862-9, 79788-1, 14143-1, 71117-0, 32931-2, 98736-0, 06299-0 #### [facility] CLIA [id number] [address] [place] [address] [place] Sjogrens syndrome-A extracta ble nuclear Ab Qn (S)on 01-18-2024 SSA ANTIBODY QUAL Negative Normal Negative [facility] Comment on above: Order Comment: Speci men Type: BLOOD SPECIMEN Ordering Facility: [facility] Address: [address] [place] [address] Performed By: #### 5 1775-5, 14541-8, 04015-2, 10839-4, 38194-1, 93115-5, 57571-2, 92850-0 #### [facility] CLIA [id number] [address] [place] [address] [place] Sjogrens syndrome-B extracta ble nuclear Ab Qn (S)on 01-18-2024 SSB ANTIBODY QUAL Negative Normal Negative [facility] Comment on above: Order Comment: Speci men Type: BLOOD SPECIMEN Ordering Facility: [facility] Address: [address] [place] [address] Performed By: #### 5 5-5, 26286-1, 92417-6, 46470-2, 46354-2, 91417-9, 43929-6, 66374-6 #### [facility] CLIA [id number] [address] [place] [address] [place] Faulkner extractable nuclear Ig G Qn (S)on 01-18-2024 SM ANTIBODY QUAL Negative Normal Negative [facility] Comment on above: Order Comment: Speci men Type: BLOOD SPECIMEN Ordering Facility: [facility] Address: [address] [place] [address] Result Comment: Anti -Sm (Faulkner) antibody is used as an aid in diagnosis of systemic lupus erythematosus and its presence is associated with renal disease. A negative result cannot rule out systemic lupus erythematosus. Clinical correlation is required. Test Methodology: Multiplex flow immunoassay. Performed By: #### 5 1775-5, 71285-4, 10028-2, 58227-3, 48757-3, 96129-9, 38181-1, 70735-2 #### [facility] CLIA [id number] [address] [place] [address] [place] Urinalysis complete panel (U )on 01-18-2024 Bacteria uL 1237.4 uL High Negative [facility] Bilirubin Ql (U) Negative Negative [facility] Clarity (Unsp spec) Clear Clear [facility] Color (U) Yellow Yellow [facility] Epithelial cells LM.HPF (Urine sed) [#/Area] Moderate /HPF [facility] Glucose Test strip (U) [Mass/Vol] Negative Negative [facility] Hemoglobin Ql (U) Negative Negative [facility] Hyaline casts (Urine sed) [#/Area] 0 /[LPF] 0 /LPF [facility] Interpretation and review of laboratory results Abnormal [facility] Ketones Ql (U) Negative Negative [facility] Leukocyte esterase Test strip Ql (U) Negative Negative [facility] Nitrite Ql (U) Negative Negative [facility] pH (U) 6.5 [pH] NINF - 8.5 [facility] Protein (U) [Mass/Vol] Trace Abnormal Negative [facility] RBC LM.HPF (Urine sed) [#/Area] 0-2 /HPF 0-2 /HPF [facility] Specific gravity (U) [Rel density] 1.019 1.005 - 1.030 [facility] Urobilinogen Ql (U) 0.2 EU/dL 0.2-1.0 EU/dL [facility] WBC LM.HPF (Urine sed) [#/Area] 0-5 /HPF 0-5 /HPF [facility] This test was developed and its performance characteristics determined by [facility] ([facility]). It has not been cleared or approved by the FDA. [facility] is regulated under CLIA as qualified to perform high-complexity testing. This test is used for clinical purposes. It should not be regarded as investigational or for research. [facility] BACTERIA UL 1237.4 uL High Negative [facility] Comment on above: Order Comment: Speci men Type: BLOOD SPECIMEN Ordering Facility: [facility] Address: [address] [place] [address] Performed By: #### 5 1775-5, 76453-3, 02714-5, 77530-7, 07879-2, 53641-0, 08659-0, 90354-8 #### [facility] CLIA [id number] [address] [place] [address] [place] Bilirubin Ql (U) Negative Normal Negative [facility] Comment on above: Order Comment: Speci men Type: BLOOD SPECIMEN Ordering Facility: [facility] Address: [address] [place] [address] Performed By: #### 5 1775-5, 78286-7, 54235-6, 56015-6, 67454-8, 68867-4, 74763-2, 43936-9 #### [facility] CLIA [id number] [address] [place] [address] [place] Clarity (Unsp spec) Clear Normal Clear [facility] Comment on above: Order Comment: Speci men Type: BLOOD SPECIMEN Ordering Facility: [facility] Address: [address] [place] [address] Performed By: #### 5 1775-5, 31019-7, 33611-9, 51105-1, 91516-9, 41965-1, 65439-1, 86572-9 #### [facility] CLIA [id number] [address] [place] [address] [place] Color (U) Yellow Normal Yellow [facility] Comment on above: Order Comment: Speci men Type: BLOOD SPECIMEN Ordering Facility: [facility] Address: [address] [place] [address] Performed By: #### 5 1775-5, 13692-6, 76084-6, 06795-1, 87220-3, 61371-2, 52736-5, 78302-9 #### [facility] CLIA [id number] [address] [place] [address] [place] Epithelial cells LM.HPF (Urine sed) [#/Area] Moderate Normal [facility] Comment on above: Order Comment: Speci men Type: BLOOD SPECIMEN Ordering Facility: [facility] Address: [address] [place] [address] Performed By: #### 5 1775-5, 87307-2, 73496-7, 07461-7, 65901-9, 02897-8, 83192-3, 03511-3 #### [facility] CLIA [id number] [address] [place] [address] [place] Glucose Test strip (U) [Mass/Vol] Negative Normal Negative [facility] Comment on above: Order Comment: Speci men Type: BLOOD SPECIMEN Ordering Facility: [facility] Address: [address] [place] [address] Performed By: #### 5 177-5, 53339-8, 24953-2, 07887-3, 86836-1, 99802-1, 91681-3, 40361-6 #### [facility] CLIA [id number] [address] [place] [address] [place] Hemoglobin Ql (U) Negative Normal Negative [facility] Comment on above: Order Comment: Speci men Type: BLOOD SPECIMEN Ordering Facility: [facility] Address: [address] [place] [address] Performed By: #### 5 1775-5, 07340-8, 77905-3, 80526-1, 84045-1, 00243-9, 85567-6, 55703-3 #### [facility] CLIA [id number] [address] [place] [address] [place] Hyaline casts (Urine sed) [#/Area] 0 /[LPF] Normal 0 /LPF [facility] Comment on above: Order Comment: Speci men Type: BLOOD SPECIMEN Ordering Facility: [facility] Address: [address] [place] [address] Performed By: #### 5 1775-5, 01504-2, 42376-2, 96952-7, 14967-8, 73262-7, 15352-9, 11013-0 #### [facility] CLIA [id number] [address] [place] [address] [place] Ketones Ql (U) Negative Normal Negative [facility] Comment on above: Order Comment: Speci men Type: BLOOD SPECIMEN Ordering Facility: [facility] Address: [address] [place] [address] Performed By: #### 5 1775-5, 71825-3, 66165-6, 14260-8, 36813-3, 67516-6, 46589-2, 94713-4 #### [facility] CLIA [id number] [address] [place] [address] [place] Leukocyte esterase Test strip Ql (U) Negative Normal Negative [facility] Comment on above: Order Comment: Speci men Type: BLOOD SPECIMEN Ordering Facility: [facility] Address: [address] [place] [address] Performed By: #### 5 1775-5, 59662-0, 27432-8, 05357-2, 91341-9, 86500-9, 90563-9, 17017-0 #### [facility] CLIA [id number] [address] [place] [address] [place] Nitrite Ql (U) Negative Normal Negative [facility] Comment on above: Order Comment: Speci men Type: BLOOD SPECIMEN Ordering Facility: [facility] Address: [address] [place] [address] Performed By: #### 5 1775-5, 80299-5, 42663-5, 81303-6, 94278-4, 31972-5, 30787-7, 16010-8 #### [facility] CLIA [id number] [address] [place] [address] [place] pH (U) 6.5 [pH] Normal <8.5 [facility] Comment on above: Order Comment: Speci men Type: BLOOD SPECIMEN Ordering Facility: [facility] Address: [address] [place] [address] Performed By: #### 5 5-5, 48383-9, 09717-7, 67849-8, 54435-9, 35893-3, 54897-1, 85498-4 #### [facility] CLIA [id number] [address] [place] [address] [place] Protein (U) [Mass/Vol] Trace Abnormal Negative [facility] Comment on above: Order Comment: Speci men Type: BLOOD SPECIMEN Ordering Facility: [facility] Address: [address] [place] [address] Performed By: #### 5 1775-5, 25763-7, 16528-0, 45880-8, 04018-1, 27802-9, 20170-0, 65059-5 #### [facility] CLIA [id number] [address] [place] [address] [place] RBC LM.HPF (Urine sed) [#/Area] 0-2 /HPF Normal 0-2 /HPF [facility] Comment on above: Order Comment: Speci men Type: BLOOD SPECIMEN Ordering Facility: [facility] Address: [address] [place] [address] Performed By: #### 5 5-5, 55050-8, 02980-8, 78735-8, 96529-6, 04808-8, 41835-7, 37223-3 #### [facility] CLIA [id number] [address] [place] [address] [place] Specific gravity (U) [Rel density] 1.019 Normal 1.005-1.030 [facility] Comment on above: Order Comment: Speci men Type: BLOOD SPECIMEN Ordering Facility: [facility] Address: [address] [place] [address] Performed By: #### 5 5-5, 83595-6, 95067-6, 17747-7, 58997-9, 02464-8, 79785-8, 02201-7 #### [facility] CLIA [id number] [address] [place] [address] [place] Urobilinogen Ql (U) 0.2 EU/dL Normal 0.2-1.0 EU/dL [facility] Comment on above: Order Comment: Speci men Type: BLOOD SPECIMEN Ordering Facility: [facility] Address: [address] [place] [address] Performed By: #### 5 5-5, 79768-2, 50525-3, 36320-2, 30925-6, 02224-8, 89397-6, 87139-8 #### [facility] CLIA [id number] [address] [place] [address] [place] WBC LM.HPF (Urine sed) [#/Area] 0-5 /HPF Normal 0-5 /HPF [facility] Comment on above: Order Comment: Speci men Type: BLOOD SPECIMEN Ordering Facility: [facility] Address: [address] [place] [address] Performed By: #### 5 5-5, 35958-4, 67472-2, 57250-8, 11047-9, 72748-6, 85963-1, 90197-2 #### [facility] CLIA [id number] [address] [place] [address] [place] cCP IgG SerPl-aCncon 11-25-2 024 Cyclic citrullinated peptide IgG Qn <15 Normal <20 [facility] Comment on above: Order Comment: Speci men Type: BLOOD SPECIMEN Ordering Facility: [facility] Address: [address] [place] [address] Performed By: #### 5 1775-5, 18088-7, 43225-5, 20162-8, 46458-6, 55393-3, 22315-6, 74249-1 #### [facility] CLIA [id number] [address] [facility] [address] [place] [id number] [place] Office Visiton 12-02-2023 Follow-up visit [id number] Essie Steele 1965 Date Provider Department Center 12/02/2023 [facility]USANNE JEFFERSON [facility] Family History Problem Relation Age of Onset Heart attack Mother's Brother Hypertension Maternal Grandmother Family Status - Relation Status Age at Mother's Brother Maternal Grandmother Level of Service:05933 [place] OFFICE/OUTPATIENT ESTABLISHED LOW MDM 20 MIN Reason for Visit and Comments: Atrial Fibrillation [80] Normal [facility] CNOVon 11-23-2023 CNOV Office Visit (WCTRMN ) ESSIE STEELE ([id number]) 1965 F Date Time Provider Department 11/23/23 [...] primary care provider on file. 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 Last mammo 4-6 wks at [facility]. BONE: Denies FMH OP/fx. No PMH OP/non [...] and hair drips after. at rest. Luís amilcar w afib, had stress test echo, sleep [...] first a (more content not included)... Normal [facility] Orders Onlyon 11-20-2023 Orders Only [id number] Essie Steele 1965 F Date Provider Department Center 11/20/2023 [id number], HISTORICAL ASHWIN Patel Family History Problem Relation Age of Onset Heart attack Mother's Brother Hypertension Maternal Grandmother Family Status - Relation Status Age at Mother's Brother Maternal Grandmother Normal [facility] Orders Onlyon 11-17-2023 Orders Only [id number] Essie Steele 1965 F Date Provider Department Center 11/17/2023 [id number], HISTORICAL [facility] CARD Rodríguez Count Family History Problem Relation Age of Onset Heart attack Mother's Brother Hypertension Maternal Grandmother Family Status - Relation Status Age at Mother's Brother Maternal Grandmother Normal [facility] INSULINon 06-13-2022 Insulin 8.5 uIU/mL Normal 2.6-24.9 [facility] Comment on above: Performed By: #### I NSULIN #### [facility] [address] [place] [address] Dr. Delonte Sparrow AMMONIAon 06-12-2022 Ammonia (P) [Moles/Vol] 33 umol/L Critically high 11-32 [facility] Comment on above: Performed By: #### A MM #### [facility] [address] [place] [address] Dr. Delonte Sparrow AMYLASEon 06-12-2022 Amylase [Catalytic activity/Vol] 47 U/L Normal 25-115 [facility] Comment on above: Performed By: #### L IPA, CMP, NONI #### [facility] [address] [place] [address] Dr. Delonte Sparrow CBC AUTO DIFFon 06-12-2022 BASO # 0.0 103/ul Normal 0.0-0.1 [facility] Comment on above: Performed By: #### C BC #### [facility] [address] [place] [address] Dr. Delonte Sparrow Basophils/100 WBC (Bld) 0.7 % Normal 0.2-2.0 [facility] Comment on above: Performed By: #### C BC #### [facility] [address] [place] [address] Dr. Delonte Sparrow EO # 0.3 103/ul Normal 0.0-0.7 [facility] Comment on above: Performed By: #### C BC #### [facility] [address] [place] [address] Dr. Delonte Sparrow Eosinophils/100 WBC (Bld) 4.3 % Normal 0.9-7.0 [facility] Comment on above: Performed By: #### C BC #### [facility] [address] [place] [address] Dr. Delonte Sparrow Erythrocyte distribution width (RBC) [Ratio] 15.0 % Normal 11.0-15.0 [facility] Comment on above: Performed By: #### C BC #### [facility] [address] [place] [address] Dr. Delonte Sparrow Hematocrit (Bld) [Volume fraction] 38.8 % Normal 36.0-48.0 [facility] Comment on above: Performed By: #### C BC #### [facility] [address] [place] [address] Dr. Delonte Sparrow Hemoglobin (Bld) [Mass/Vol] 12.0 g/dL Normal 12.0-16.0 [facility] Comment on above: Performed By: #### C BC #### [facility] [address] [place] [address] Dr. Delonte Sparrow IG # 0.03 10e3/ul Normal 0.00-0.03 [facility] Comment on above: Performed By: #### C BC #### [facility] [address] [place] [address] Dr. Delonte Sparrow IG % 0.5 % Normal 0.0-0.5 [facility] Comment on above: Performed By: #### C BC #### [facility] [address] [place] [address] Dr. Delonte Sparrow LYMPH # 1.7 103/ul Normal 1.2-3.8 [facility] Comment on above: Performed By: #### C BC #### [facility] [address] [place] [address] Dr. Delonte Sparrow Lymphocytes/100 WBC (Bld) 27.3 % Normal 20.5-60.0 [facility] Comment on above: Performed By: #### C BC #### [facility] [address] [place] [address] Dr. Delonte Sparrow MANUAL DIFF REQ NO Normal [facility] Comment on above: Performed By: #### C BC #### [facility] [address] [address] [address] Delonte Sparrow MCH (RBC) [Entitic mass] 24.1 pg Critically low 26.7-34.0 [facility] Comment on above: Performed By: #### C BC #### [facility] [address] [place] [address] Dr. Delonte Sparrow MCHC (RBC) [Mass/Vol] 30.9 g/dL Normal 29.9-35.2 [facility] Comment on above: Performed By: #### C BC #### [facility] [address] [place] [address] Dr. Delonte Sparrow MCV (RBC) [Entitic vol] 78.1 fL Critically low 81.0-99.0 [facility] Comment on above: Performed By: #### C BC #### [facility] [address] [place] [address] Dr. Delonte Sparrow MONO # 0.4 103/ul Normal 0.3-0.8 [facility] Comment on above: Performed By: #### C BC #### [facility] [address] [place] [address] Dr. Delonte Sparrow Monocytes/100 WBC (Bld) 6.4 % Normal 1.7-12.0 [facility] Comment on above: Performed By: #### C BC #### [facility] [address] [place] [address] Dr. Delonte Sparrow NEUT # 3.7 103/ul Normal 1.4-6.5 [facility] Comment on above: Performed By: #### C BC #### [facility] [address] [place] [address] Dr. Delonte Sparrow Neutrophils/100 WBC (Bld) 60.8 % Normal 43.0-75.0 [facility] Comment on above: Performed By: #### C BC #### [facility] [address] [place] [address] Dr. Delonte Sparrow Platelet mean volume (Bld) [Entitic vol] 9.7 fL Normal 9.5-13.5 [facility] Comment on above: Performed By: #### C BC #### [facility] [address] [place] [address] Dr. Delonte Sparrow PLT 263 103/ul Normal 150-450 [facility] Comment on above: Performed By: #### C BC #### [facility] [address] [place] [address] Dr. Delonte Sparrow RBC 4.97 106/ul Normal 4.20-5.40 [facility] Comment on above: Performed By: #### C BC #### [facility] [address] [place] [address] Dr. Delonte Sparrow WBC 6.1 103/ul Normal 4.0-11.0 [facility] Comment on above: Performed By: #### C BC #### [facility] [address] [place] [address] Dr. Delonte Sparrow FREE THYROXINE INDEX T7on FTI 2.61 Normal 1.30-4.50 [facility] Comment on above: Performed By: #### L IPA, CMP, NONI #### [facility] [address] [place] [address] Dr. Delonte Sparrow T3U 33.0 % Normal 30.0-39.0 [facility] Comment on above: Performed By: #### L IPA, CMP, NONI #### [facility] [address] [place] [address] Dr. Delonte Sparrow T4 [Mass/Vol] 7.90 ug/dL Normal 4.80-13.90 [facility] Comment on above: Performed By: #### L IPA, CMP, NONI #### [facility] [address] [place] [address] Dr. Delonte Sparrow GLYCOHEMOGLOBIN A1Con 2022 ADA RECOMMENDATION SEE BELOW Normal [facility] Comment on above: Result Comment: ADA RECOMMENDED LIMIT 4.0 - 6.0 ADA THERAPEUTIC TARGET < 7.0 ACTION SUGGESTED > 7.0 Performed By: #### A 1C #### [facility] [address] [place] [address] Dr. Delonte Sparrow Glucose [Mass/Vol] 105 mg/dL Normal [facility] Comment on above: Performed By: #### A 1C #### [facility] [address] [place] [address] Dr. Delonte Sparrow HbA1c (Bld) [Mass fraction] 5.3 % Normal 4.5-6.2 [facility] Comment on above: Performed By: #### A 1C #### [facility] [address] [place] [address] Dr. Delonte Sparrow IRONon 06-12-2022 Iron [Mass/Vol] 35.0 ug/dL Critically low 50.0-170.0 [facility] Comment on above: Performed By: #### L ADELE OCONNELL, NONI #### [facility] [address] [place] [address] Dr. Delonte Sparrow LIPASEon 06-12-2022 Lipase [Catalytic activity/Vol] 130.0 U/L Normal 73.0-393.0 [facility] Comment on above: Performed By: #### L ADELE OCONNELL, NONI #### [facility] [address] [place] [address] Dr. Delonte Sparrow TSHon 06-12-2022 TSH 1.741 uIU/mL Normal 0.358-3.740 [facility] Comment on above: Performed By: #### L ADELE OCONNELL, NONI #### [facility] [address] [place] [address] Dr. Delonte Sparrow VITAMIN D 25 OHon 06-12-2022 VIT D 25-OH 20.9 ng/mL Normal [facility] Comment on above: Performed By: #### I AMANDA VITAD #### [facility] [address] [place] [address] Dr. Delonte Sparrow VIT D RANGES SEE BELOW Normal [facility] Comment on above: Result Comment: <20 ng/mL Vit D deficient 20 - <30 ng/mL Vit D insufficient 30 - 100 ng/mL Vit D sufficient >100 ng/mL Potential Toxicity Performed By: #### I AMANDA VITAD #### [facility] [address] [place] [address] Dr. Delonte Sparrow AMYLASEon 08-21-2021 Amylase [Catalytic activity/Vol] 26 U/L Normal 25-115 [facility] Comment on above: Performed By: #### L IPA, CMP, NONI #### [facility] [address] [place] [address] Dr. Delonte Sparrow CBC W MANUAL DIFFon 08-22-19 22 ATYPICAL LYMPH # Normal [facility] Comment on above: Performed By: #### C BCMAN #### [facility] [address] [place] [address] Dr. Delonte Sparrow ATYPICAL LYMPH % Normal [facility] Comment on above: Performed By: #### C BCSEA #### [facility] [address] [place] [address] Dr. Delonte Sparrow BAND # Normal 0.0-0.3 [facility] Comment on above: Performed By: #### C BRITT #### [facility] [address] [place] [address] Dr. Delonte Sparrow BAND % Normal 0-5 [facility] Comment on above: Performed By: #### C BRITT #### [facility] [address] [place] [address] Dr. Delonte Sparrow BASOM # 0.00 103/ul Normal 0.00-0.10 [facility] Comment on above: Performed By: #### C BRITT #### [facility] [address] [place] [address] Dr. Delonte Sparrow BASOM % 0.0 % Critically low 0.2-2.0 [facility] Comment on above: Performed By: #### C BCSEA #### [facility] [address] [place] [address] Dr. Delonte Sparrow BLAST # Normal [facility] Comment on above: Performed By: #### C BCMAN #### [facility] [address] [place] [address] Dr. Delonte Sparrow BLAST % Normal [facility] Comment on above: Performed By: #### C BRITT #### [facility] [address] [place] [address] Dr. Delonte Sparrow CORRECTED WBC Normal 4.0-11.0 [facility] Comment on above: Performed By: #### C BCMAN #### [facility] [address] [address] [address] Delonte Sparrow EOS # 15.45 103/ul Critically high 0.00-0.70 [facility] Comment on above: Performed By: #### C BCMAN #### [facility] [address] [address] [address] Delonte Sparrow EOS% 57.0 % Critically high 0.9-7.0 [facility] Comment on above: Performed By: #### C BCMAN #### [facility] [address] [address] [address] Delonte Sparrow HCT 45.1 % Normal 36.0-48.0 [facility] Comment on above: Performed By: #### C BCSEA #### [facility] [address] [address] [address] Delonte Sparrow HGB 13.9 g/dl Normal 12.0-16.0 [facility] Comment on above: Performed By: #### C BCMAN #### [facility] [address] [address] [address] Delonte Sparrow LYMPHM # 2.98 103/ul Normal 1.20-3.80 [facility] Comment on above: Performed By: #### C BCMAN #### [facility] [address] [address] [address] Delonte Sparrow LYMPHM% 11.0 % Critically low 20.5-60.0 [facility] Comment on above: Performed By: #### C BCMAN #### [facility] [address] [address] [address] Delonte Sparrow MCH 23.3 pg Critically low 26.7-34.0 [facility] Comment on above: Performed By: #### C BCMAN #### [facility] [address] [address] [address] Delonte Sparrow MCHC 30.8 g/dl Normal 29.9-35.2 [facility] Comment on above: Performed By: #### C BRITT #### [facility] [address] [address] [address] Delonte Sparrow MCV 75.5 fL Critically low 81.0-99.0 [facility] Comment on above: Performed By: #### C BRITT #### [facility] [address] [address] [address] Delonte Sparrow METAMYELOCYTE # Normal [facility] Comment on above: Performed By: #### C BRITT #### [facility] [address] [place] [address] Dr. Delonte Sparrow METAMYELOCYTE % Normal [facility] Comment on above: Performed By: #### C BRITT #### [facility] [address] [place] [address] Dr. Delonte Sparrow MONOM# 1.63 103/ul Critically high 0.30-0.[address] [facility] Comment on above: Performed By: #### C BRITT #### [facility] [address] [place] [address] Dr. Delonte Sparrow MONOM% 6.0 % Normal 1.7-12.0 [facility] Comment on above: Performed By: #### C BRITT #### [facility] [address] [place] [address] Dr. Delonte Sparrow MPV 9.9 fL Normal 9.5-13.5 [facility] Comment on above: Performed By: #### C BRITT #### [facility] [address] [place] [address] Dr. Delonte Sparrow MYELOCYTE # Normal [facility] Comment on above: Performed By: #### C BRITT #### [facility] [address] [place] [address] Dr. Delonte Sparrow MYELOCYTE % Normal [facility] Comment on above: Performed By: #### C BRITT #### [facility] [address] [place] [address] Dr. Delonte Sparrow NRBC Normal [facility] Comment on above: Performed By: #### C BRITT #### [facility] [address] [address] [address] Delonte Sparrow PLT 343 103/ul Normal 150-450 [facility] Comment on above: Performed By: #### Pravin DE LA TORRE #### [facility] [address] [address] [address] Delonte Sparrow RBC 5.97 106/ul Critically high 4.20-5.[address] [facility] Comment on above: Performed By: #### Pravin DE LA TORRE #### [facility] [address] [address] [address] Delonte Sparrow RDW 16.9 % Critically high 11.0-15.0 [facility] Comment on above: Performed By: #### Pravin DE LA TORRE #### [facility] [address] [address] [address] Delonte Sparrow SEG # 7.05 103/ul Critically high 1.40-6.[address] [facility] Comment on above: Performed By: #### Pravin DE LA TORRE #### [facility] [address] [address] [address] Delonte Sparrow SEG % 26.0 % Critically low 43.0-75.0 [facility] Comment on above: Performed By: #### Pravin DE LA TORRE #### [facility] [address] [address] [address] Delonte Sparrow WBC 27.1 103/ul Critically high 4.0-11.[address] [facility] Comment on above: Performed By: ###Kelin DE LA TORRE #### [facility] [address] [place] [address] ABD/PELV W CONon [...] DWIGHT TOBAR Date: 2021-08-21 16:48 Normal [facility] LIPASEon 08-21-2021 Lipase [Catalytic activity/Vol] 58.0 U/L Critically low 73.0-393.0 [facility] Comment on above: Performed By: #### L IPA, CMP, NONI #### [facility] [address] [place], [place] [address] Dr. Delonte Sparrow PROF 14(COMP METB)on 022 Albumin [Mass/Vol] 3.6 g/dL Normal 3.4-5.0 [facility] Comment on above: Performed By: #### L IPA, CMP, NONI #### [facility] [address] [place] [address] Dr. Delonte Sparrow Albumin/Globulin [Mass ratio] 1.0 {ratio} Normal [facility] Comment on above: Performed By: #### L IPA, CMP, NONI #### [facility] [address] [address] [address] Delonte Sparrow ALP [Catalytic activity/Vol] 125 U/L Critically high 46-116 [facility] Comment on above: Performed By: #### L IPA, CMP, NONI #### [facility] [address] [place] [address] Dr. Delonte Sparrow ALT [Catalytic activity/Vol] 27 U/L Normal 14-59 [facility] Comment on above: Performed By: #### L IPA, CMP, NONI #### [facility] [address] [place] [address] Dr. Delonte Sparrow Anion gap [Moles/Vol] 12.7 mmol/L Normal [facility] Comment on above: Performed By: #### L IPA, CMP, NONI #### [facility] [address] [place] [address] Dr. Delonte Sparrow AST [Catalytic activity/Vol] 15 U/L Normal 15-37 [facility] Comment on above: Performed By: #### L IPA, CMP, NONI #### [facility] [address] [place] [address] Dr. Delonte Sparrow Bilirubin [Mass/Vol] 0.3 mg/dL Normal 0.2-1.0 [facility] Comment on above: Performed By: #### L IPA, CMP, NONI #### [facility] [address] [place] [address] Dr. Delonte Sparrow Calcium [Mass/Vol] 8.2 mg/dL Critically low 8.5-10.1 [facility] Comment on above: Performed By: #### L IPA, CMP, NONI #### [facility] [address] [address] [address] Delonte Sparrow Chloride [Moles/Vol] 103 mmol/L Normal 98-107 [facility] Comment on above: Performed By: #### L IPA, CMP, NONI #### [facility] [address] [address] [address] Delonte Sparrow CO2 [Moles/Vol] 29.2 mmol/L Normal 21.0-32.[address] [facility] Comment on above: Performed By: #### L IPA, CMP, NONI #### [facility] [address] [address] [address] Delonte Sparrow Creatinine [Mass/Vol] 0.81 mg/dL Normal 0.55-1.02 [facility] Comment on above: Performed By: #### L IPA, CMP, NONI #### [facility] [address] [address] [address] Delonte Sparrow EGFR-AF HUNGARIAN >60 Normal >=[address] [facility] Comment on above: Performed By: #### L IPA, CMP, NONI #### [facility] [address] [address] [address] Delonte Sparrow EGFR-NON AF HUNGARIAN >60 Normal >=60 [facility] Comment on above: Performed By: #### L IPA, CMP, NONI #### [facility] [address] [address] [address] Delonte Sparrow Globulin (S) [Mass/Vol] 3.7 g/dL Normal [facility] Comment on above: Performed By: #### L IPA, CMP, NONI #### [facility] [address] [address] [address] Delonte Sparrow Glucose [Mass/Vol] 103 mg/dL Normal 74-106 [facility] Comment on above: Performed By: #### L IPA, CMP, NONI #### [facility] [address] [address] [address] Delonte Sparrow Potassium [Moles/Vol] 3.9 mmol/L Normal 3.5-5.1 [facility] Comment on above: Performed By: #### L IPA, CMP, NONI #### [facility] [facility] [address] [place] [address] Dr. Delonte Sparrow Protein [Mass/Vol] 7.3 g/dL Normal 6.4-8.2 [facility] Comment on above: Performed By: #### L IPA, CMP, NONI #### [facility] [address] [place] [address] Dr. Delonte Sparrow Sodium [Moles/Vol] 141 mmol/L Normal 136-145 [facility] Comment on above: Performed By: #### L IPA, CMP, NONI #### [facility] [address] [place] [address] Dr. Delonte Sparrow Urea nitrogen [Mass/Vol] 16.0 mg/dL Normal 7.0-18.0 [facility] Comment on above: Performed By: #### L IPA, CMP, NONI #### [facility] [address] [place] [address] Dr. Delonte Sparrow Urea nitrogen/Creatinine [Mass ratio] 19.8 mg/mg Normal [facility] Comment on above: Performed By: #### L IPA, CMP, NONI #### [facility] [address] [place] [address] Dr. Delonte Sparrow COVID-19 Positive/Negativeon 06-20-2020 SARS-CoV-2 (COVID-19) N gene WES+probe Ql (Resp) Negative Negative [facility] Comment on above: Testing for SARS-CoV -2 by RT-PCRThis test was developed and its performance characteristics determined by [employer] (BD) and validated at the [facility]. This test has not been FDA [...] (Unsp spec) N/A [facility] Cytologyon 04-12-2018 Cytology (NOTE) [id number] [facility] ANATOMIC PATHOLOGY [address] [place] [address]. 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 - Endocervical/transfor mation zone component present. - Scant cellularity, predominantly inflammatory exudate. Descriptive Diagnosis: Negative for intraepithelial lesion or malignancy. Shift in bruce suggestive of bacterial vaginosis. Science Instructor: HARJIT Valera(ASCP) Electronically Signed Out bessie/04/23/2018 Normal [facility] Comment on above: Performed By: #### P PPVP #### [facility] [email or web address] [address] [place] [address] [id number] Personnel Records Clerk: Karthik Lynn MD Vital Signs Date Time Vital Sign Value Performing Clinician Facility 07-19-2024 10: Body height 170.18 cm [facility] 07-19-2024 10: Body mass index (BMI) [Ratio] 35.4 kg/m2 [facility] 07-19-2024 10: Body weight 102.51 kg [facility] 07-19-2024 10:13-0400 Diastolic blood pressure 75 mm[Hg] [facility] 07-19-2024 10:13-0400 Heart rate 65 /min [facility] 07-19-2024 10:13-0400 Systolic blood pressure 116 mm[Hg] [facility] 05-05-2024 14:25-0400 Body mass index (BMI) [Ratio] 33.52 kg/m2 Wolf Medley MD Work Phone: [facility] 05-05-2024 14:25-0400 Body weight 97.07 kg Wolf Medley MD Work Phone: [facility] 05-05-2024 14:25-0400 Diastolic blood pressure 86 mm[Hg] Wolf Medley MD Work Phone: [facility] 05-05-2024 14:25-0400 Systolic blood pressure 134 mm[Hg] Wolf Medley MD Work Phone: [facility] 01-18-2024 09:19-0500 Body height 168.9 cm Renny Baron MD Work Phone: [facility] 01-18-2024 09:19-0500 Body mass index (BMI) [Ratio] 38.27 kg/m2 Renny Baron MD Work Phone: [facility] 01-18-2024 09:19-0500 Body temperature 97.2 [degF] Renny Baron MD Work Phone: [facility] 01-18-2024 09:19-0500 Body weight 109.2 kg Renny Baron MD Work Phone: [facility] 01-18-2024 09:19-0500 Diastolic blood pressure 100 mm[Hg] Renny Baron MD Work Phone: [facility] 01-18-2024 09:19-0500 Heart rate 68 /min Renny Baron MD Work Phone: [facility] 01-18-2024 09:19-0500 Systolic blood pressure 153 mm[Hg] Renny Baron MD Work Phone: [facility] 11-23-2023 08:11-0400 Body weight 108.5 kg Kristy Evangelista MD Work Phone: [facility] 11-23-2023 08:11-0400 Diastolic blood pressure 74 mm[Hg] Kristy Evangelista MD Work Phone: [facility] 11-23-2023 08:11-0400 Heart rate 71 /min Kristy Evangelista MD Work Phone: [facility] 11-23-2023 08:11-0400 Systolic blood pressure 139 mm[Hg] Kristy Evangelista MD Work Phone: [facility] 09-24-2023 09:46-0400 Body temperature 98.2 [degF] Lester Kubitz DPM Work Phone: [facility] 09-24-2023 09:46-0400 Diastolic blood pressure 74 mm[Hg] Lester Kubitz DPM Work Phone: [facility] 09-24-2023 09:46-0400 Heart rate 65 /min Lester Kubitz DPM Work Phone: [facility] 09-24-2023 09:46-0400 Systolic blood pressure 122 mm[Hg] Lester Kubitz DPM Work Phone: [facility] 10-07-2022 09:30-0400 Body height 170.18 cm Philippe Wise Other [facility] Other 10-07-2022 09:30-0400 Body mass index (BMI) [Ratio] 34.45 kg/m2 Philippe Wise Other [facility] Other 10-07-2022 09:30-0400 Body weight 99.79 kg Philippe Wise Other [facility] Other 10-07-2022 09:30-0400 Diastolic blood pressure 83 mm[Hg] Philippe Wise Other [facility] Other 10-07-2022 09:30-0400 Systolic blood pressure 139 mm[Hg] Philippe Wise Other [facility] Other 08-29-2021 12:00-0400 Body height 170.18 cm René Cjdesiree Other [facility] Other 08-29-2021 12:00-0400 Body mass index (BMI) [Ratio] 35.55 kg/m2 René Ly Other [facility] Other 08-29-2021 12:00-0400 Body weight 102.97 kg René Ly Other [facility] Other 08-29-2021 12:00-0400 Diastolic blood pressure 89 mm[Hg] René Ly Other [facility] Other 08-29-2021 12:00-0400 Systolic blood pressure 142 mm[Hg] René Ly Other [facility] Other Encounters Encounter Date Encounter Type Care Provider Facility Start: 07-21-2024 End: 07-21-2024 Patient encounter procedure Brett Paniagua MD Work Phone: [facility] Work Phone: Start: 07-21-2024 End: 07-21-2024 ambulatory Brett Paniagua MD Work Phone: [facility] Work Phone: Start: 07-19-2024 End: 07-19-2024 ambulatory [facility] Work Phone: Start: 07-19-2024 End: 07-19-2024 [facility] Start: 06-24-2024 End: 06-24-2024 ambulatory [facility] Start: 05-05-2024 End: 05-05-2024 Initial preventive medicine new patient 40-64yrs Wolf Medley MD Work Phone: [facility] Comment on above: Well woman exam with routine gynecological exam; Cervical cancer screening; Screening for HPV (human papillomavirus) Start: 05-05-2024 End: 05-05-2024 Patient encounter procedure Wolf Medley MD Work Phone: [facility] Start: 05-05-2024 End: 05-05-2024 ambulatory WOLF MEDLEY Not Available Start: 05-05-2024 End: 05-05-2024 Bamboo flowsheet Wolf Medley MD Work Phone: [facility] Start: 05-05-2024 End: 05-05-2024 Bamboo flowsheet Wolf Medley MD Work Phone: [facility] Start: 03-25-2024 End: 03-25-2024 ambulatory Brett Hoy Facility:[facility] Start: 03-25-2024 End: 03-25-2024 Patient encounter procedure Zacarias COBIAN [facility] Start: 03-15-2024 ambulatory Brett Hoy Facility:[facility] Start: 03-11-2024 ambulatory Brett Hoy Facility:[facility] Start: 03-08-2024 End: 03-09-2024 ambulatory Kristy Evangelista MD Work Phone: [facility] Comment on above: PCP Start: 02-29-2024 End: 03-01-2024 Refill Kristy Evangelista MD Work Phone: [facility] Comment on above: Refill Request Start: 02-28-2024 End: 02-29-2024 Refill Renny Baron MD Work Phone: Rheumatology Comment on above: Refill Request Start: 02-08-2024 End: 02-08-2024 ambulatory RENNY BARON Facility:[facility] Comment on above: Arthralgia, unspecif ied joint (Primary Dx); Enthesitis; Encounter for long-term (current) use of medications; Carpal tunnel syndrome of left wrist; Positive KAELA (antinuclear antibody) Start: 02-08-2024 End: 02-08-2024 Telemedicine consultation with patient Renyn Baron MD Work Phone: Rheumatology Start: 01-28-2024 End: 01-28-2024 ambulatory Renny Baron MD Work Phone: Rheumatology Comment on above: Xraus Start: 01-20-2024 End: 01-20-2024 Get Medical Advice Renny Baron MD Work Phone: Rheumatology Comment on above: Xrays order Start: 01-18-2024 End: 01-18-2024 ambulatory RENNY BARON Facility:[facility] Start: 01-18-2024 End: 01-18-2024 Office outpatient new 60 minutes Renny Baron MD Work Phone: Rheumatology Comment on above: Encounter for long-t erm (current) use of medications (Primary Dx); Crohn's disease of large intestine without complication (HCC); Arthritis; Enthesitis; Arthralgia, unspecified joint Start: 01-18-2024 End: 01-18-2024 ambulatory KRISTY EVANGELISTA Facility:[facility] Start: 01-18-2024 End: 01-18-2024 Subsequent hospital visit by physician Bone Density Main A21 1 Radiology Comment on above: Symptomatic menopaus al or female climacteric states [N95.1] Start: 12-02-2023 End: 12-02-2023 ambulatory [facility] Start: 11-23-2023 End: 11-23-2023 ambulatory KRISTY EVANGELISTA Facility:[facility] Start: 11-23-2023 End: 11-23-2023 Patient encounter procedure Kristy Evangelista MD Work Phone: [facility] Comment on above: Symptomatic menopaus al or female climacteric states (Primary Dx); Paroxysmal atrial fibrillation (HCC); Gastroesophageal reflux disease without esophagitis; Migraine with aura and with status migrainosus, not intractable; Crohn's disease of large intestine without complication (HCC); Arthritis Start: 09-24-2023 End: 09-24-2023 Office outpatient visit 15 minutes Lester Harrell DPM Work Phone: [facility] Comment on above: Pain of right foot ( Primary Dx); Pain of right heel; Pain of left foot; Pain of left heel; Bilateral plantar fasciitis Start: 09-24-2023 End: 09-24-2023 ambulatory LESTER HARRELL Not Available Start: 07-01-2023 End: 07-01-2023 ambulatory [facility] Start: 10-07-2022 End: 10-07-2022 ambulatory Philippe Wise Other [facility] Other Start: 10-07-2022 Patient encounter procedure Philippe Wise [facility] Gastroenterology Start: 07-07-[address] BRETT PANIAGUA . Facili ty:[facility] Start: 06-12-2022 End: 06-13-[address] BRETT PANIAGUA . Facility:[facility] Start: 08-29-2021 End: 08-29-2021 ambulatory René Ly Other [facility] Other Start: 08-29-2021 Office outpatient vi sit 25 minutes René Ly [facility] Gastroenterology Start: 08-21-2021 End: 08-22-[address] BRETT PANIAGUA . Facility:[facility] Start: 06-20-2020 End: 06-20-2020 Patient encounter procedure Nader Paniagua Work Phone: -Pre-Surgical Testing Start: 04-12-2018 Encounter for gynecological examination (general) (routine) without abnormal findings [facility] Start: 04-12-2018 End: 04-13-2018 Patient encounter procedure [facility] Procedures Date Procedure Procedure Detail Performing Clinician Start: 07-21-2024 Supine abdominal X-ray Brett Paniagua MD Work Phone: Start: 04-11-2024 Radex foot complete minimum 3 views Euge ne R Chino DPM Work Phone: Start: 04-11-2024 Radex foot complete minimum 3 views Euge ne R Kubitz DPM Work Phone: Start: 01-18-2024 Dxa bone density study 1/> sites axial skel Kristy Evangelista MD Work Phone: Start: 04-12-2018 Screen pap by gisela NEW Start: 04-12-2018 Microscopic observation [Identifier] in Cervix by Cyto stain Lester Harrell DPM Work Phone: Colonoscopy Zacarias ARANZA Esophagogastroduodenoscopy M ichedith NILL Hysterectomy Zacarias ARANZA Plan of Treatment Date Care Activity Detail Author Start: 01-17-2027 Diabetes Screening Diabetes [facility] Start: 05-05-2024 End: 05-05-2024 Patient encounter procedure 05/05/2024 2:15 PM EDT Office Visit [facility] [address] [place] [address] Wolf Medley MD [address] [place] [address] Well woman exam with routine gynecological exam; Cervical cancer screening; Screening for HPV (human papillomavirus); Other screening mammogram [facility] Comment on above: Well woman exam with routine gynecological exam; Cervical cancer screening; Screening for HPV (human papillomavirus); Other screening mammogram Start: 03-14-2024 End: 03-14-2024 Patient encounter procedure 03/14/2024 11:20 AM EST Office Visit [facility] [address] [place] [id number] Kristy Evangelista MD [address] [place] [address] 3 MONTH FOLLOW UP [facility] Comment on above: 3 MONTH FOLLOW UP Start: 02-08-2024 End: 02-08-2024 ambulatory 02/08/2024 9:30 AM [facility] [address] [address] Renny Baron MD [address] [address] 3w f/u - discuss results Rheumatology Comment on above: 3w f/u - discuss res ults Start: 01-18-2024 End: 04-18-2024 BLOOD TB SCREEN [facility] Comment on above: Expected: 01/18/2024 , Expires: 04/18/2024 Start: 01-18-2024 End: 04-18-2024 Cyclic citrullinated peptide IgG Ab [Units/volume] in Serum or Plasma [facility] Comment on above: Expected: 01/18/2024 , Expires: 04/18/2024 Start: 01-18-2024 End: 04-18-2024 DNA double strand Ab [Units/volume] in Serum by Immunoassay [facility] Comment on above: Expected: 01/18/2024 , Expires: 04/18/2024 Start: 01-18-2024 End: 04-18-2024 Extractable nuclear Ab panel - Serum [facility] Comment on above: Expected: 01/18/2024 , Expires: 04/18/2024 Start: 01-18-2024 End: 01-18-2024 Patient encounter procedure Radiology Comment on above: DXA-AXIAL SKELETON, Symptomatic menopausal or female climacteric states [N95.1], BD DXA TRABECULAR BONE SCORE (TBS),.Symptomatic menopausal or female climacteric states [N95.1] Arthritis [M19.90] Start: 10-25-2023 Covid-19 Vaccine () Covid-19 Vaccine () [facility] Start: 10-25-2023 Influenza vaccination Influenza Vacc ine (#1) [facility] Start: 04-12-2021 Screening for malign ant neoplasm of cervix [facility] Start: 01-17-2016 Pneumococcal Vaccine : 50+ (1 of 1 - PCV) Pneumococcal Vaccine: 50+ (1 of 1 - PCV) [facility] Start: 01-17-2016 Shingrix Vaccine (1 of 2) Shingrix Vaccine (1 of 2) [facility] Start: 2011 Diabetes Screening Diabetes Screenin g [facility] Start: 2011 Lipid panel Lipid Screening [facility] Start: 2011 Screening for malign ant neoplasm of colon [facility] Start: 2006 Screening for malign ant neoplasm of breast [facility] Start: 01-17-1996 Screening for malign ant neoplasm of cervix HPV/Cotest [facility] Start: 1985 Hepatitis B Vaccine (1 of 3 - 19+ 3-dose series) Hepatitis B Vaccine (1 of 3 - 19+ 3-dose series) [facility] Start: 1985 Urine microalbumin profile DTaP,Tdap,Td Vaccine (1 - Tdap) [facility] Start: 01-17-1984 Anxiety Screening Anxiety Screening [facility] Start: 01-17-1984 Depression Screening Depression Scre ening [facility] Start: 01-17-1984 Hepatitis C screening Hepatitis C Sc reening [facility] Start: 01-17-1984 HIV screening HIV Screening [facility] Start: 1966 Screening for malign ant neoplasm of colon [facility] End: 12-22-2024 BD DXA TRABECULAR BONE SCORE (TBS) BD DXA TRABECULAR BONE SCORE (TBS) Radiology Routine Symptomatic menopausal or female climacteric states 1 Occurrences starting 11/23/2023 until 12/22/2024 [facility] Comment on above: 1 Occurrences starti ng 11/23/2023 until 12/22/2024 End: 12-22-2024 DXA Skeletal system.axial Views for bone density DXA-AXIAL SKELETON Radiology Routine Symptomatic menopausal or female climacteric states 1 Occurrences starting 11/23/2023 until 12/22/2024 [facility] Work Phone: Comment on above: 1 Occurrences starti ng 11/23/2023 until 12/22/2024 IGP, APT HPV,RFX 16/18,45 IGP, APT HPV,RFX 16/18,45 Lab Routine Cervical cancer screening Screening for HPV (human papillomavirus) Ordered: 05/05/2024 [facility] Work Phone: Comment on above: Ordered: 05/05/2024 Supine abdominal X-ray [facility] End: 02-16-2025 XR Hand - bilateral PA and Lateral XR HAND 2V PA/LAT BILATERAL Radiology Routine Arthritis 1 Occurrences starting 01/18/2024 until 02/16/2025 [facility] Comment on above: 1 Occurrences starti ng 01/18/2024 until 02/16/2025 End: 02-16-2025 XR Sacroiliac Joint Views XR SACROILIAC JOINTS 2V AP PELVIS/FERGUESON Radiology Routine Arthritis 1 Occurrences starting 01/18/2024 until 02/16/2025 [facility] Work Phone: Comment on above: 1 Occurrences starti ng 01/18/2024 until 02/16/2025 End: 02-16-2025 XR Shoulder - left 2 Views XR SHOULDER LIMITED 2V AP/TRUE AP LEFT Radiology Routine Arthritis 1 Occurrences starting 01/18/2024 until 02/16/2025 [facility] Comment on above: 1 Occurrences starti ng 01/18/2024 until 02/16/2025 End: 02-16-2025 XR Shoulder - right 2 Views XR SHOULDER [id number] AP/TRUE AP RIGHT Radiology Routine Arthritis 1 Occurrences starting 01/18/2024 until 02/16/2025 [facility] Comment on above: 1 Occurrences starti ng 01/18/2024 until 02/16/2025 Immunizations Immunization Date Immunization Notes Care Provider Angeles wilson 04-04-2020 SARS-CoV-2 (COVID-19 ) mRNA-1273 vaccine Zacarias COBIAN [facility] 03-07-2020 SARS-CoV-2 (COVID-19 ) mRNA-1273 vaccine Zacarias COBIAN [facility] 12-07-2015 influenza virus vaccine, unspecified formulation Kristy Evangelista MD Work Phone: [facility] Payers Date Payer Category Payer Self-pay [id number] 2017 Private Health Insurance [employer] AETNA POS [id number] 2017-Present [phone] [address] [place] [address] POS [id number] 2003 Managed Care O (unspecified) [employer] [id number] 1966 Unknown [id number] 1966 Unknown [id number] [id number] 1966 Unknown [id number] 1966 Unknown [id number] [id number] 1966 Unknown [id number] 1966 Unknown [id number] 1966 Unknown [id number] 1966 Unknown [id number] 1959 Private Health Insurance [id number] Unknown [id number] Unknown [id number] Social History Date Type Detail Facility Start: 11-03-2018 End: 06-22-2020 Tobacco smoking status INIS Ex-smoker (finding) [facility] Start: 1965 Sex Assigned At Female F [facility] Start: 11-23-2023 End: 05-05-2024 Sex Assigned At [facility] Start: 11-23-2023 Tobacco smoking stat [facility] Never smoked tobacco [facility] Start: 09-24-2023 End: 11-23-2023 Tobacco use and exposure Smokeless tobacco non-user [facility] Start: 11-23-2023 End: 05-05-2024 Alcoholic beverage intake Current drinker of alcohol (finding) [facility] Start: 11-23-2023 End: 05-05-2024 History of Social function [facility] Start: 11-23-2023 [facility] Start: 1965 Sex assigned at Not on file C [facility] Adult Depression Screening Assessment 2 [facility] History of tobacco use Current smoker [facility] History of tobacco use Cigarette Smoker N [facility] Start: 09-24-2023 Alcohol Comment wine or beer - a couple per month [facility] Start: 07-19-2024 End: 07-22-2024 Sex Female (finding) [facility] Goals Date Patient Goal Desired Activity /State Clinical Notes 07-24-2020 to 07-19-2024 Note Date & Type Note Facility 07-19-2024 Evaluation note Diagnosis Onset Date Resolution IBS (irritable bowel syndrome) acute July 19, 2024 1 0:05am [facility] Work Phone: 1(483) 259-674405-02-2025 NoteUT Cardiology - [facility] Subjective Essie Steele is a 59 y.o. 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 She denies any chest discomfort at rest or with exertion. She denies exertional dyspnea, orthopnea or paroxysmal nocturnal dyspnea. She denies dizziness, syncope or near syncope. She denies legs edema or discomfort on exertion. She reports occasional flip-flopping and no sustained palpitation. She is not on CPAP. She reports that her blood pressure at home in the 140s over 90 ROS All systems were reviewed and they were negative except for the positive findings noted above in the history Past Medical History: Diagnosis Date Abnormal ECG Anxiety Arrhythmia Atrial fibrillation (CMS/HCC) Crohn's disease (CMS/HCC) GERD (gastroesophageal reflux disease) Hypertension Migraine Obstructive sleep apnea 07/03/2023 CARLITO=9.5 events/hour; Leroy SpO2=84%; Ezpxrh=836.0 lbs; BMI=35.7 kg/m2, Home Sleep Apnea Testing on 07/01/2023 at [facility] Past Surgical History: Procedure Laterality Date SECTION, CLASSIC HYSTERECTOMY Family History Problem Relation Name Age of Onset COPD Mother Cancer Father Heart attack Mother's Brother Hypertension Maternal Grandmother Social History Tobacco Use Smoking status: Former Types: Cigarettes Smokeless tobacco: Never Substance Use Topics Alcohol use: Yes Comment: occasional Drug use: Never Allergies Allergies Allergen Reactions Codeine Meperidine Unknown Medications Current Outpatient Medications: aspirin 81 mg EC tablet, Take 81 mg by mouth in the morning., Disp: , Rfl: celecoxib (CeleBREX) 100 mg capsule, Take 100 mg by mouth twice a day., Disp: , Rfl: desvenlafaxine (Pristiq) 100 mg 24 hr tablet, 100 mg 1 (one) time each day., Disp: , Rfl: dilTIAZem CD (Cardizem CD) 180 mg 24 hr capsule, Take 1 capsule (180 mg) by mouth in the morning. (Patient taking differently: Take 240 mg by mouth in the morning.), Disp: 30 capsule, Rfl: 11 Imitrex 100 mg tablet, Take 100 mg by mouth 1 (one) time if needed., Disp: , Rfl: ondansetron ODT (Zofran-ODT) 4 mg disintegrating tablet, Take 4 mg by mouth every 8 (eight) hours if needed., Disp: , Rfl: pantoprazole (ProtoNix) 40 mg EC tablet, TAKE 1 TABLET BY MOUTH TWICE A DAY FOR 30 DAYS, Disp: , Rfl: estradiol (Vivelle-DOT) 0.0375 mg/24 hr, Place 1 patch on the skin 2 (two) times a week., Disp: , Rfl: Objective Visit Vitals BP 135/90 (BP Location: Left arm, Patient Position: Sitting) Pulse 60 Ht 1.702 m (5' 7 ) Wt 103 kg (226 lb) SpO2 98% BMI 35.40 kg/m??? Smoking Status Former BSA 2.21 m??? Physical exam: GENERAL: alert and oriented x3, well developed, in no acute distress. HEAD: atraumatic, normocephalic. EYES: CARLOS, EOMI. NECK: trachea midline, no JVD present, no carotid bruits present. CARDIAC: S1, S2 present. RRR. No murmur, rubs, or gallops. RESPIRATORY: CTAB, no increased effort of breathing, no rales, rhonchi, or wheezing. ABDOMEN: soft, nontender, nondistended. EXTREMITIES: no lower extremity edema. No rash/skin discoloration present. NEURO: strength/sensation equal and symmetric in bilateral upper and lower extremities. PSYCH: appropriate mood, affect, and judgement. Recent Labs 03/14/2024 White blood count 13, hemoglobin 13, hematocrit 41, platelets 276 Sodium 140, potassium 3.8, BUN 17, creatinine 0.93, GFR above 60, glucose 92, calcium 9 Total bilirubin 0.4, AST 15, ALT 26, alk phos 142, total protein 7.7, albumin 3.5 03/04/2023 TSH 2.164, T49.7, free T32.7 Imaging and other tests EK05/2023 normal sinus rhythm heart rate 67 bpm, normal EKG Echo: 04/06/2023 Echo 03/04/2023 stress test: 04/22/2023 14-day event monitor 03/05/2023-03/19/2023 Home sleep study 07/01/2023 Assessment/Plan Paroxysmal A-fib She is on Cardizem CD2 40 mg daily and baby aspirin. Clinically stable without recurrence Essential hypertension, on Cardizem CD 240 mg daily but blood pressure is elevated today and she reports that at home it is in the 140s over 90s Obstructive sleep apnea, mild, not on CPAP yet, to follow with sleep medicine Obesity, BMI 35.4 kg/m??? (more content not included)...[facility]03-13-2025 History of Present illness Narrative* Wolf Medley MD - 05/05/2024 2:15 PM EDT Images from the original note were not included. Wolf Medley MD Obstetrics and Gynecology Patient: Essie Steele, : 1965 (59 y.o.) DOS 05/05/24 Exam Date: 05/05/2024 HPI: Establishing care. Last seen 3 yrs ago when Tony did her hysterectomy. She is not on ERT, she feels fine Visit Vitals BP 134/86 Wt 214 lb BMI 33.52 kg/m OB Status Hysterectomy Smoking Status Former BSA 2.14 m OB History Para Term AB Living 4 4 4 0 0 4 SAB IAB Ectopic Multiple Live Births 0 0 0 0 4 # Outcome Date GA Lbr Faustino/2nd Weight Sex Type Anes PTL Lv 4 Term 3 Term 2 Term 1 Term Obstetric Comments Pap: 04/13 Mammo: Done recently/normal DEXA: 01/16 Hysterectomy/BSO Medication and Allergies Medication Documentation Review Audit Reviewed by Vonnie Gillespie MA (Talent Recruiter) on 05/05/24 at 1429 Medication Order Taking? Sig Documenting Provider Last Dose Status aspirin 81 MG EC tablet [id number] Take 81 mg by mouth Daily Lester Harrell DPM Active celecoxib (CeleBREX) 100 MG capsule [id number] Take 100 mg by mouth in the morning and 100 mg before bedtime. Wolf Medley MD Active desvenlafaxine (Pristiq) 100 MG 24 hr tablet [id number] Take 100 mg by mouth Daily Lester Harrell DPM Active Discontinued 05/05/24 1428 dilTIAZem CD (Cardizem CD) 240 MG 24 hr capsule [id number] Take 240 mg by mouth Daily Wolf Medley MD Active Discontinued 05/05/24 1428 Multiple Vitamins-Minerals (CENTRUM SILVER PO) [id number] Take 1 tablet by mouth Daily Lester Harrell DPM Active pantoprazole (ProtoNix) 40 MG EC tablet [id number] Take 40 mg by mouth in the morning and 40 mg before bedtime. Lester Harrell DPM Active Allergies Allergen Reactions Codeine GI intolerance Past Medical History: Diagnosis Date Arthritis Atrial fib/flutter, transient (CMS/HCC) Crohn's disease (CMS/HCC) Past Surgical History: Procedure Laterality Date SECTION, LOW TRANSVERSE x2 COLONOSCOPY EGD HYSTERECTOMY Physical Exam: Objective Physical Exam Constitutional: Appearance: Normal appearance. Genitourinary: Genitourinary Comments: Mild LSA of labia minora with loss of architecture Vaginal cuff intact. No vaginal discharge or bleeding. Moderate vaginal atrophy present. Right Adnexa: absent. Left Adnexa: absent. Cervix is absent. Uterus is absent. Breasts: Right: Normal. Left: Normal. Pulmonary: Effort: Pulmonary effort is normal. Abdominal: General: Abdomen is flat. Palpations: Abdomen is soft. Neurological: Mental Status: She is alert. Associated Treatments and Results - ICD-10-CM 1. Well woman exam with routine gynecological exam Z01.419 2. Cervical cancer screening Z12.4 IGP, APT HPV,RFX 16/18,45 3. Screening for HPV (human papillomavirus) Z11.51 IGP, APT HPV,RFX 16/18,45 Assessment/Plan Orders Placed This Encounter Procedures IGP, APT HPV,RFX 16/18,45 Order Specific Question: Print requisition? Answer: Yes documented in this encounterResearch Medical Center-Brookside [id number] Telephone encounter Note* Telephone Encounter - Annika Cruz - 02/29/2024 3:46 PM EST 11/23/2023 03/14/2024 Patient phones requesting refills as follows: Requested Prescriptions Pending Prescriptions Disp Refills estradiol (VIVELLE-DOT) 0.0375 mg/24 hr patch 30 Patch 1 Sig: Apply 1 Patch as directed two times a week. Please review and advise. [facility]01-06-2025 Miscellaneous Notes* Telephone Encounter - Annika Cruz - 02/29/2024 3:46 PM EST 11/23/2023 03/14/2024 Patient phones requesting refills as follows: Requested Prescriptions Pending Prescriptions Disp Refills estradiol (VIVELLE-DOT) 0.0375 mg/24 hr patch 30 Patch 1 Sig: Apply 1 Patch as directed two times a week. Please review and advise. documented in this encounterOhiohealth01-06-2025 Telephone encounter Note * Telephone Encounter - Kori Banks RN - 02/29/2024 10:47 AM EST Images from the original note were not [...] Open Future (Single Instance) Lab Orders None [facility]01-06-2025 Miscellaneous Notes* Telephone Encounter - Kori Banks RN - 02/29/2024 10:47 AM EST Images from the original note were not [...] Instance) Lab Orders None documented in this encounterOhiohealth12-16-2024 History of Present illness Narrative* Renny Baron MD - 02/08/2024 9:30 AM EST Images from the original note were not included. VIRTUAL VISIT PROGRESS NOTE This is a virtual visit using [employer] Zoom Video Visit. It required patient- provider interaction for the medical decision making as documented below. I have communicated my name and active licensure. The patient's identity and physical location wereverified at the time of this visit. Either the patient or their legal wireless sales representative has been informed of the risks and benefits of -- and alternatives to -- treatment through a remote evaluation andconsents to proceed with the evaluation remotely. Essie [...] afterwards had difficulty sleeping, hot flashes, weight gain(70lbs), excess fatigue. Around the same time, she has also noticed more joint pain. Specifically in her hands she has felt swelling in her MCPs. Feels that her rings are having a harder time fittingbut also has had weight gain. Bl hand, left>right shoulder (left handed) hurt the most but elbow, lower back all hurt. Sometimes it feels that the pain radiates down her bone from shoulder down her arm. She had EMS for ~1h that improves with movement but worst pain is at night when she is layingdown. Reported she had +KAELA Exacerbated by specific [...] population = 50. Five points is a clinicallymeaningful difference.) Physical T-Score 29.6 Mental T-Score 33.8 [...] false negative results. In case of a contactinvestigation, please repeat 8-12 weeks after a known exposure. TB Result Negative Latest Ref Rng & Units 01/18/2024 Antibodies (w/o coag labs) DNA Antibody <=200 IU/mL 29 Anti-Sm <1.0 AI <0.2 Sm Antibody Negative Negative Ribosomal CYLINDRICAL MIXER Ab <1.0 AI <0.2 Ribosomal CYLINDRICAL MIXER Qualitative Negative Negative Chromatin Ab <1.0 AI <0.2 Chromatin Ab Qual Negative Negative SSA Antibody Qual Negative Negative Anti-SSA <1.0 AI <0.2 Anti-SSB <1.0 AI <0.2 CYLINDRICAL MIXER Antibody QUAL Negative Negative Scleroderma Ab Qual [...] and AC OA shoulder). Sometimes arthralgias can occurwith menopause and her hot flashes are mildly [...] to PT: she will get this at [facility] - If not improved, then CSI for shoulder or ortho/pain management for hip - Continue Celebrex 100mg BID prn, but encourage her to discuss this with GI as sometimes NSAIDS can exacerbated UC. There are some studies that suggest that celebrex may be better in well controlledCD than other NSAIDs though no NSAID is [...] this time, there is no evidence of SLEbut if pt develops new symptoms, please come back for evaluation. Orders this visit: No orders found for this visit on 02/08/24. Return in about 3 months (around 05/08/2024). After PT, ? Consider ssz/mtx for enthesitis if not improved with PT I spent a total of 25 minutes on the date of the service which included [id number] patient care, completing clinical documentation, and communicating results to the patient/family/caregiver Renny Baron MD documented in this encounterOhiohealth12-16-2024 NoteHNO ID: [id number] Author: RENNY BARON MD Service: ? Author Type: Physician Type: Progress Notes Filed: 02/08/2024 09:59 Note Text: VIRTUAL VISIT PROGRESS NOTE This is a virtual visit using [employer] Video Visit. It required patient-provider interaction for the medical decision making as documented below. I have communicated my name and active licensure. The patient's identity and physical location were verified at the time of this visit. Either the patient or their legal wireless sales representative has been informed of the risks [...] No data to dis (more content not included)...[facility] 01-20-2024 Telephone encounter Note* Telephone Encounter - Kori Banks RN - 01/20/2024 11:37 AM EST Spoke with pt and confirmed she would [place] [address]. Called [facility] outpatient radiology dept and obtained fax number of [phone]. X-ray orders from 01/18/2024 faxed with confirmation of fax receipt received. Advised pt to please let us know once x-rays are completed, so that we can ensure that we received the results. Pt verbalized understanding. [facility]11-27-2024 Miscellaneous Notes* Telephone Encounter - Kori Banks RN - 01/20/2024 11:37 AM EST Spoke with pt and confirmed she would like x-ray orders faxed to [place] [id number]. Called [facility] outpatient radiology dept and obtained fax number of [phone]. X-ray orders from 01/18/2024 faxed with confirmation of fax receipt received. Advised pt to please let us know once x-rays are completed, so that we can ensure that we received the results. Pt verbalized understanding. documented in this encounterOhiohealth11-25-2024 History of Present illness Narrative* Renny Baron MD - 01/18/2024 10:00 AM EST Images from the original note were not included. Rheumatology CONSULTATION Date of Service: 01/18/2024 Patient: Essie Steele Primary Care Physician: Brett Paniagua ([place], [place]) Last Rheumatology visit: [facility] Referring Provider: Kristy Evangelista [address] [facility] [address] Essie Steele is here today at request of Dr. Evangelista specifically for consultation of my opinion in regards to the chief complaint listed below. Correspondence will be shared today via the [employer] electronic health record or through regular mail, where applicable. History of Present Illness Essie Steele is a 59 year old White female with history of PAF (02/2023), CD (no immunosuppression) who presents on 01/18/2024 for an in-person visit for evaluation of Joint Pain. She is currentlytaking celecoxib. Reason for visit: arthritis She had a hysterectomy 3 years ago and afterwards had difficulty sleeping, hot flashes, weight gain(70lbs), excess fatigue. Around the same time, she has also noticed more joint pain. Specifically in her hands she has felt swelling in her MCPs. Feels that her rings are having a harder time fittingbut also has had weight gain. Bl hand, left>right shoulder (left handed) hurt the most but elbow, lower back all hurt. Sometimes it feels that the pain radiates down her bone from shoulder down her arm. She had EMS for ~1h that improves with movement but worst pain is at night when she is layingdown. Reported she had +KAELA Exacerbated by specific [...] Generalized Wrist-Right Location Comment joint pain Description Aching;Cramping;Numbness;Radiating;Sharp;Shooting;Stiffness;Tightness Duration (Timeframe) Months Frequency Continuous Intervention Medication;Reposition;Imagery;Pillow support Patient-Entered Data PROMIS Assessments 01/17/2024 PROMIS Global Health - (T-Scores - the mean of general population = 50. Five points is a clinicallymeaningful difference.) Physical T-Score 29.6 Mental T-Score 33.8 [...] Sometimes arthralgias can occur with menopause and herhot flashes are mildly improved with HRT. 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 There was left SI tenderness and bl [...] this time, there is no evidence of SLEbut if pt develops new symptoms, please come back for evaluation. Orders this visit: Office Visit on 01/18/24 XR SACROILIAC JOINTS 2V AP PELVIS/FERGUESON XR HAND 2V PA/LAT BILATERAL XR SHOULDER [id number] AP/TRUE AP RIGHT XR SHOULDER LIMITED 2V [...] which included preparing to see the patient, [id number] patient care, completing clinical documentation, obtaining and/or reviewing separately obtained history, performing a medically appropriate examination, counseling and educating the pat ient/family/caregiver, ordering medications, tests, or procedures, and communicating results to thepatient/family/caregiver. Renny Baron MD PhD Rheumatology documented in this encounterOhiohealth11-25-2024 NoteHNO ID: [id number] Author: RENNY BARNO MD Service: ? Author Type: Physician Type: Progress Notes Filed: 01/18/2024 18:39 Note Text: Rheumatology CONSULTATION Date of Service: 01/18/2024 Patient: Essie Steele Primary Care Physician: Brett Paniagua ([place], [place]) Last Rheumatology visit: [facility] Referring Provider: Kristy Evangelista [address] [facility] [id number] Essie Steele is here today at request of Dr. Evangelista specifically for consultation of my opinion in regards to the chief complaint listed below. Correspondence will be shared today via the [facility] electronic health record or through [...] Generalized Wrist-Right Location Comment joint pain Description Aching;Cramping;Numbness;Radiating;Sharp;Shooting;Stiffness;Tightness Duration (Timeframe) Months Frequency Continuous Intervention Medication;Reposition;Imagery;Pillow support Patient-Entered Data PROMIS Assessments 01/17/2024 PROMIS [...] HERNANDEZ with going u (more content not included)...[facility] 01-18-2024 History of Present illness Narrative* Florencia Calderon RT(R) - 01/18/2024 8:55 AM EST Radiology Service Progress Note PATIENT NAME: Essie Steele DATE OF SERVICE: January 18, 2024 TIME: 8:58 AM PATIENT IDENTITY VERIFICATION COMPLETED USING TWO (2) IDENTIFIERS: Name and Date of confirmedby patient verbally. FALL SCREENING: Has the patient had 2 falls in the last year or 1 fall with injury or currently using an Ambulatory Assistive Device (Walker, Cane, Wheelchair, Crutches, etc.)? No PATIENT GENDER DATA: Female. status: : No status: NO. PATIENT RELEVANT IMPLANT DATA REVIEWED: Not Applicable PATIENT PRESENTS WITH AN IMPLANTABLE OR ATTACHED FILENET DEVELOPER: No RADIOLOGY DEPARTMENT: Bone Density PERIPHERAL IV DATA: Not applicable SIGNED BY: RT Sammy([place]) January 18, 2024 8:58 AM documented in this encounterOhiohealth11-25-2024 NoteHNO ID: [id number] Author: FLORENCIA CALDERON RT(R) Service: ? Author [...] PATIENT PRESENTS WITH AN IMPLANTABLE OR ATTACHED FILENET DEVELOPER: No RADIOLOGY DEPARTMENT: Bone Density PERIPHERAL IV DATA: Not applicable SIGNED BY: RT Sammy(R) January 18, 2024 8:58 [facility]10-09-2024 NoteCardiovascular Medicine [facility] SUBJECTIVE Chief Complaint Patient presents with Atrial [...] had follow up for titration study. Seeing MARKETING PROPOSAL COORDINATOR for night sweats, achy joints, issues with [...] sleep apnea 07/03/2023 CARLITO=9.5 events/hour; Leroy SpO2=84%; Ritsst=201.0 lbs; BMI=35.7 kg/m2, Home Sleep Apnea Testing on 07/01/2023 at [facility] Family History Problem Relation Name Age [...] tachycardia) (CMS/HCC) Elevated blood pressure reading PAF -[id number] = 1 (female) -Dr. Ramirez noted a [...] (around 06/01/2024). Susanne Paz NP [facility] Note Patient here for 6 mo follow up [...] pain. All other systems reviewed and are negative.[facility] 11-23-2023 Instructions* Patient Instructions* Kristy Evangelista MD - 11/23/2023 8:31 AM EDT BONE MINERAL DENSITY PATIENT INSTRUCTIONS Bone mineral density testing measures the amount of calcium in certain parts of your bones. This information determines how strong your bones are. The test is used to detect osteoporosis, a disease in which the bone's mineral content and density are low, increasing a person's risk of fractures. Thelumbar spine (lower back) and the hip are [...] your usual activities immediately. documented in this encounterOhiohealth09-30-2024 History of Present illness Narrative* Kristy Evangelista MD - 11/23/2023 8:00 AM EDT 58 year old yo W [facility] .No primary care provider on file. 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 sweating is the worst even in a/c environment on pristiq now x 2 yrs no real help No associated SOB/LH/palpitations/diaphoresis/n/v/chest pain/pressure/radiation. Not on exertion. not happy about [...] thinks lining was too thick TAHBSO at [place] Dr Castro had an TVUS and revealed [...] nipple discharge, lumps/masses, skin changes. Denies prior Bx.Last mammo 4-6 wks at [facility]. BONE: Denies FMH OP/fx. No PMH OP/non [...] dx when she thought she had URI bchusband and grandgtr karan switched to asa after [...] vivelle dot patch- and is to call meif has any problems -will adjust dose prn. [...] DISEASE Kristy Evangelista M.D.,F.A.C.P. documented in this encounterOhiohealth09-30-2024 NoteHNO ID: [id number] Author: KRISTY EVANGELISTA MD Service: ? Author Type: Physician Type: Progress Notes Filed: 12/12/2023 15:15 Note Text: 58 year old yo W [facility] .No primary care provider on file. 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 sweating is the worst even in a/c environment on pristiq now x 2 yrs no real help No associated SOB/LH/palpitations/diaphoresis/n/v/chest pain/pressure/radiation. Not on exertion. not happy about [...] thinks lining was too thick TAHBSO at [place] Dr Castro had an TVUS and revealed [...] prior Bx. Last mammo 4-6 wks at [facility]. BONE: Denies FMH OP/fx. No PMH OP/non [...] atrial fibrillation (HC (more content not included)... [facility]08-01-2024 History of Present illness Narrative* Lester Harrell, NATALIA - 09/24/2023 9:30 AM EDT Reason for Appointment NEW Chief complaint: Bilateral heel and foot pain History of Present Illness Presents for pain to the bilateral heel, plantar lateral arches and forefoot. Pain started about one month ago and has worsened over the past 1-2 weeks. Patient has pain once a day when usually she is on her feet. Pain level of 3/10 in right foot and heel and 1-3/10 in the left foot and heel. Pain is described as aching. Patient has attempted [employer] athletic shoes or slides for treatment. Patient states that she stopped wearing flip flops. Patient has not attempted icing, stretching or topical pain cream. Patient states that she had same bilateral heel pain three years ago which improved until a month ago when it returned. Review of Systems General: Chills no. Fever no. Endocrine: Diabetes no. Cardiovascular: Chest pain no. Gastrointestinal: Constipation no. Nausea no. Hematology: Easy bruising yes. Anemia no. Musculoskeletal: Leg cramps yes. Peripheral Vascular: Edema no. Rest pain no. Hx of blood clots in lungs no. Skin: Rash no. Ulceration no. Hyperpigmentation no. Neurologic: Tingling/Numbness no. Gait abnormality no. Examination General Examination: GENERAL APPEARANCE: awake, aware of surroundings, in no acute distress. Vascular: DORSALIS PEDIS PULSE: 2/4, bilaterally. POSTERIOR TIBIAL PULSE: 2/4, bilaterally. TEMPERATURE GRADIENT: warm to cool. CAPILLARY FILLING TIME(sec): capillary fill intact bilateral digits less than 3 secs. Neurologic: VIBRATORY: normal. SEMMES-JAMES 5.07 MONOFILAMENT: normal. NEUROLOGIC: light touch/protective sensation intact. Dermatologic: SKIN FINDINGS: texture, turgor, hair growth, within normal limits. HYPERKERATOSIS: bilateral hallux. NAIL PATHOLOGY: digits 1-5 bilateral are intact. Ankle / Foot: MUSCLE STRENGTH: 5/5. Orthopedic: JOINT RANGE OF MOTION: decreased bilateral foot first MPJ: 10 degrees dorsiflexion left. DEFORMITIES: congenital elongated second toe bilaterally, adductovarus deformity bilateral toe 5, hallux limitus bilaterally. PAIN ELICITED WITH PALPATION OF: bilateral plantar central heel. PAIN ELICITED WITH ROM: none. ORTHOPEDIC: plantar fasciitis at origin/insertion bilaterally. OTHER FINDINGS: ankle joint equinus bilaterally with 0 degrees dorsiflexion. SHOE GEAR EVALUATION: [employer] athletic shoes. Imaging: Foot X-ray: 09-24-2023: Right foot x-rays, weightbearing AP/MO/LAT views, obtained today shows: patient was congenital elongation right 2nd toe very narrowed 2nd and 3rd intermetatarsal spaces. Lateral shows good medial longitudinal arch, slightly elevated with 1st metatarsal elevation though parallel with the 2nd. Area of heel pain shows no pathology small retrocalcaneal spur noted. Os peroneum noted. 09-24-2023: Left foot x-rays, weightbearing AP/MO/LAT views, obtained today shows: 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 Narrowed 2nd, 3rd intermetatarsal spaces. Lateral view shows high medial longitudinal arch with increased calcaneal inclination angle, 1st metatarsal is elevated. Os peroneum noted.No visible pathology otherwise noted in terms of heel or foot concern. 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 Physical examination was performed. X-rays, weightbearing three views weight-bearing bilateral foot AP, medial oblique, lateral, taken today were reviewed with patient. Activity modification: Patient was advised of the benefits of activity modification and the need toavoid activities that aggravate the injured anatomy, i.e., prolonged weightbearing/standing, bending, kneeling, squatting, climbing steps/stairs/ladders, and exercising. Patient voiced understanding. Oral anti-inflammatory: ERx ([id number]) Medrol Dosepak, dispensed 1 pack, take as directed. 0 refills. Ice: Patient was advised of the benefits of ice application and the need to apply ice bag/frozen gel pack to affected area 15 minutes on/off for pain/edema control. Patient was advised to not fall asleep with ice bag/frozen gel pack applied to affected area. Patient voiced understanding. Shoe gear: Patient was advised of the benefits of proper shoe gear and patient was instructed to wear well padded, well-constructed/stabilized type shoe, for all weightbearing. Patient should avoid walking barefoot and avoid wearing slippers, flip flops, sandals, low or high heeled shoes. Patient voiced understanding. OTC insoles: Patient was shown Powerstep Professional Insoles to wear in All shoes for all weightbearing activity. Patient was advised that these insoles are a patient responsibility item if patient would like to pursue them. Patient accepted. Calf / Achilles Stretching: Patient was advised of the benefits of stretching. Patient was advised to perform calf/Achilles tendon stretches QID, hold for 15- 25 seconds. Caution was advised about overstretching. Patient voiced understanding. Patient was given significant education about potential st retching in the technique as well as educational handout dispensed to patient on today's date. Topical Pain relief: Patient advised to apply Biofreeze topically to bilateral foot/ heel three times a day for pain reduction. Patient was further advised that other types of topical medicine may berequired including prescription compounded medication from local pharmacy. Custom foot orthotics/Night Splint/Airheel/possible corticosteroid injection: Patient was advised that we will check insurance for coverage for custom foot orthotics, night splint, Airheel and cortisone injection in case these treatment options are necessary. Patient should reappoint in 2-3 weeks for recheck. documented in this encounter[facility] [id number] NoteEpworth Sleepiness Scale Please rate the following as to how [...] sleep... Acting out your dreams... Difficulty ambulating... Incontinence...[facility]05-08-2024 NotePt given verbal and written instructions and demo of HSAT device. Pt to return unit to registration 07/02 Quality of life Answer each question by shading in the [place] completely. Choose only one answer for each [...] 70 75 80 85 90 95 100 [facility]08-15-2023 Evaluation note* Encounter Date Diagnosis Assessment Notes Treatment Notes Treatment Clinical Notes Sep, GERD without esophagitis (ICD-10 - K21.9) Sep, Irritable bowel syndrome with diarrhea (ICD-10 - K58.0) Sep, Other Patient still having diarrhea and cramping in the lower abd area. Patient reports having these episodes at least one time weekly. Patient can restart dicyclomine 20mg TID PRN. [facility] Other 07-07-2022 Evaluation note* Encounter Date Diagnosis Assessment Notes Treatment Notes Treatment Clinical Notes Aug, Crohns disease (ICD- 10 - K50.90) 07 Aug, 2021 Viral gastroenteriti s (ICD-10 - A08.4) Continue prednisone as prescribed by PCP Start Cipro 500mg bid for 7 days Patient to call when she finished prednisone and cipro if symptoms do not improve. Follow up in 4 weeks. [facility] Other 06-01-2021 History general Narrative - Reported* Type Description Date Medical History Crohns disease Surgical History C section X2 Surgical History hysterectomy 07/2020 [facility] Other Evaluation + Plan note No data available for this section [facility] General Surgery [place] Evaluation noteNo Assessments Information Available [facility]* Diagnosis Symptomatic menopausal or female [...] unspecified, site unspecified [facility] Diagnosis Encounter for long-term (current) use of medications- Primary Encounter for long-term (current) use of other medications Crohn's disease of large intestine without complication (HCC) Regional enteritis of large intestine Arthritis Arthropathy, unspecified, site unspecified Enthesitis Enthesopathy of unspecified site Arthralgia, unspecified joint [facility]* Diagnosis Symptomatic menopausal or female climacteric states [facility]* Diagnosis Arthralgia, unspecified joint- Primary Enthesitis Enthesopathy of unspecified site Encounter for long-term (current) use of medications Encounter for long-term (current) use of other medications Carpal tunnel syndrome of left wrist Carpal tunnel syndrome Positive KAELA (antinuclear antibody) Other and unspecified nonspecific immunological findings [facility] Pain of right foot- Primary Pain of right heel Pain of left foot Pain of left heel Bilateral plantar fasciitis documented [facility] this encounter [facility]* Diagnosis Well woman exam with routine gynecological exam Routine gynecological examination Cervical cancer screening Screening for malignant neoplasm of the cervix Screening for HPV (human papillomavirus) Special screening examination for human papillomavirus (HPV) documented [facility] noteNo assessment information availableC[facility] Work Phone: Hospital Discharge instructions No data available for this section [facility] General Surgery [place] Progress note No data available for this section [facility] [place] Reason for referral (narrative)* Diagnostic Procedure Only (Routine) - Closed Specialty Diagnoses / Procedures Referred By Contac t Referred To Contact XR IMAGING Diagnoses Symptomatic menopausal or female climacteric states Procedures DXA-AXIAL SKELETON DXA BONE DENSITY STUDY 1/> SITES AXIAL Kristy Jacobson MD [address] [phone] [facility] [place] [address] Referral ID Status Reason Start Date Expiration Date V isits Requested Visits Authorized [id number] Closed Auto-Generate d Referral 11/23/2023 12/22/2024 1 1 [facility] for visit Narrative* Diagnostic Procedure Only (Routine) - Closed Specialty Diagnoses / Procedures Referred By Contac t Referred To Contact XR IMAGING Diagnoses Symptomatic menopausal or female climacteric states Procedures DXA-AXIAL SKELETON DXA BONE DENSITY STUDY 1/> SITES AXIAL Kristy Jacobson MD [address] [place] [address] [place] [address] Referral ID Status Reason Start Date Expiration Date V isits Requested Visits Authorized [id number] Closed Auto-Generate d Referral 11/23/2023 12/22/2024 1 1 [facility] Summary Purpose Family History No Family History Records Found Relationship Condition Age at Onset Recorded Date/T liza father Malignant neoplasm Unknown Not Specified Chronic obstructive pulmonary disease Un known sister Malignant neoplasm of tongue Unknown Relationship Condition Age at Onset Recorded Date/T liza father Malignant neoplasm Unknown mother Chronic obstructive pulmonary disease Unk nown sister Malignant neoplasm of tongue Unknown father Unknown mother Unknown Advance Directives No Advanced Directives Records Found Advance Directive Response Recorded Date/ Time Advance Directives No October 9:45am Chief Complaint and Reason for Visit Chief Complaint Gerd, Crohn's Diseas e Chief Complaint Admit Date crohn's July 19, 2024 10:05 am Chief Complaint Admit Date crohn's July 19, 2024 10:05 am k50.90 r32 July 21, 2024 3:08p m Reason for Visit Admit Date IBS (irritable bowel syndrome) July 19, 2024 10:05am Reason for Referral Specialty Diagnoses / Procedures Referred By Contac t Referred To Contact [facility] Diagnoses Arthralgia, unspecified joint Procedures CONSULT TO PHYSICAL THERAPY PHYSICAL THERAPY EVALUATION HIGH COMPLEX 45 MINS Renny Baron MD [address] [place] [address] [facility] [place] [address] [place] [address] Referral ID Status Reason Start Date Expiration Date Visits Requested Visits Authorized [id number] Pending Review Auto-Generat ed Referral 4 01/17/2025 1 1 Specialty Diagnoses / Procedures Referred By Contac t Referred To Contact XR IMAGING Diagnoses Arthritis Procedures XR SHOULDER LIMITED 2V AP/TRUE AP LEFT RADEX SHOULDER COMPLETE MINIMUM 2 VIEWS Renny Baron MD [address] [place] [address] [facility] Referral ID Status Reason Start Date Expiration Date Visits Requested Visits Authorized [id number] New Request Auto-Generat ed Referral 4 02/16/2025 1 1 Specialty Diagnoses / Procedures Referred By Contac t Referred To Contact XR IMAGING Diagnoses Arthritis Procedures XR SHOULDER [id number] AP/TRUE AP RIGHT RADEX SHOULDER COMPLETE MINIMUM 2 VIEWS Renny Baron MD [address] [place] [address] [facility] Referral ID Status Reason Start Date Expiration Date Visits Requested Visits Authorized [id number] New Request Auto-Generat ed Referral 4 02/16/2025 1 1 Specialty Diagnoses / Procedures Referred By Contac t Referred To Contact XR IMAGING Diagnoses Arthritis Procedures XR HAND 2V PA/LAT BILATERAL RADEX HAND 2 VIEWS Renny Baron MD [address] [place] [address] [facility] [place] [address] Referral ID Status Reason Start Date Expiration Date Visits Requested Visits Authorized [id number] New Request Auto-Generat ed Referral 02/16/2025 1 1 Specialty Diagnoses / Procedures Referred By Contac t Referred To Contact XR IMAGING Diagnoses Arthritis Procedures XR SACROILIAC JOINTS 2V AP PELVIS/FERGUESON RADIOLOGIC EXAMINATION SACROILIAC JNTS <3 VIEWS Renny Baron MD [address] [place] [address] [facility] [place] [address] Referral ID Status Reason Start Date Expiration Date Visits Requested Visits Authorized [id number] New Request Auto-Generat ed Referral 02/16/2025 1 1 Specialty Diagnoses / Procedures Referred By Contac t Referred To Contact Rheumatology Diagnoses Crohn's disease of large intestine without complication (HCC) Arthritis Procedures CONSULT TO RHEUM/IMMUN DISEASE OFFICE/OUTPATIENT [facility] 60 MINUTES Kristy Evangelista MD [address] [place] [id number] Referral ID Status Reason Start Date Expiration Date Visits Requested Visits Authorized [id number] Authorized PCP Requested Referral 11/23/2023 11/22/2024 1 1 Specialty Diagnoses / Procedures Referred By Contac t Referred To Contact XR IMAGING Diagnoses Symptomatic menopausal or female climacteric states Procedures DXA-AXIAL SKELETON DXA BONE DENSITY STUDY 1/> SITES AXIAL SKEL Kristy Evangelista MD [address] [facility] [place] [address] [facility] Referral ID Status Reason Start Date Expiration Date Visits Requested Visits Authorized [id number] Authorized Auto-Generat ed Referral 11/23/2023 12/22/2024 1 1 Additional Source Comments INFORMATION SOURCE (unrecogn ized section and content) DATE CREATED AUTHOR 04/25/2018 Emy everett DATE CREATED AUTHOR AUTHOR'S ORGANIZ ATION 07/07/2022 [facility] DATE CREATED AUTHOR AUTHOR'S ORGANIZ ATION 02/10/2024 [facility] DATE CREATED AUTHOR AUTHOR'S ORGANIZ ATION 03/28/2024 [facility] DATE CREATED AUTHOR AUTHOR'S ORGANIZ ATION 05/08/2024 [facility] DATE CREATED AUTHOR AUTHOR'S ORGANIZ ATION 06/29/[address] [facility] DATE CREATED AUTHOR AUTHOR'S ORGANIZ ATION 07/23/2024 [facility] REASON FOR VISIT (unrecogniz ed section and content) Reason Comments Joint Pain Specialty Diagnoses / Procedures Referred By Contac t Referred To Contact Rheumatology Diagnoses Crohn's disease of large intestine without complication (HCC) Arthritis Procedures CONSULT TO RHEUM/IMMUN DISEASE OFFICE/OUTPATIENT [facility] 60 MINUTES Kristy Evangelista MD [address] [place] [address] Referral ID Status Reason Start Date Expiration Date V isits Requested Visits Authorized [id number] Closed PCP Requested Referral 11/23/2023 11/22/2024 1 [...] or prosecute any alcohol or drug abuse patient.[facility]healthIn the event this information is protected by the Federal Confidentiality of Alcohol and Drug Abuse Patient Records regulations: The Federal rules restrict any use of the information to criminally investigate or prosecute any alcohol or drug abuse patient.[facility]healthIn the event this information is protected by the Federal Confidentiality of Alcohol and Drug Abuse Patient Records regulations: The Federal rules restrict any use of the information to criminally investigate or prosecute any alcohol or drug abuse patient.[facility]healthIn the event this information is protected by the Federal Confidentiality of Alcohol and Drug Abuse Patient Records regulations: The Federal rules restrict any use of the information to criminally investigate or prosecute any alcohol or drug abuse patient.[facility]healthIn the event this information is protected by the Federal Confidentiality of Alcohol and Drug Abuse Patient Records regulations: The Federal rules restrict any use of the information to criminally investigate or prosecute any alcohol or drug abuse patient.[facility]healthIn the event this information is protected by the Federal Confidentiality of Alcohol and Drug Abuse Patient Records regulations: The Federal rules restrict any use of the information to criminally investigate or prosecute any alcohol or drug abuse patient.[facility]healthIn the event this information is protected by the Federal Confidentiality of Alcohol and Drug Abuse Patient Records regulations: The Federal rules restrict any use of the information to criminally investigate or prosecute any alcohol or drug abuse patient.[facility]healthIn the event this information is protected by the Federal Confidentiality of Alcohol and Drug Abuse Patient Records regulations: The Federal rules restrict any use of the information to criminally investigate or prosecute any alcohol or drug abuse patient.[facility]healthIn the event this information is protected by the Federal Confidentiality of Alcohol and Drug Abuse Patient Records regulations: The Federal rules restrict any use of the information to criminally investigate or prosecute any alcohol or drug abuse patient.[facility] Patient Care team informatio n (unrecognized section and content) 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 Start Date End Date Brett Paniagua MD [address] [place] [address] PCP - General Family Medicine 09/24/23 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 Start Date End Date Brett Paniagua MD [address] [facility] [place] [address] PCP - General Family Medicine 09/24/23 Team Status: Active Member Role Status Rosy Paniagua MD Primary Care Provider Active Team Status: Inactive Member Role Status Dates Brett Paniagua MD Primary Care Provider Active Start: July 19, 2024 End: July 19, 2024 Philippe Wise MD Attending Provider Active S tart: July 19, 2024 End: July 19, 2024 Team Status: Inactive Member Role Status Dates Brett Paniagua MD Primary Care Provider Active Start: July 21, 2024 End: July 21, 2024 Philippe Wise MD Attending Provider Active S tart: July 21, 2024 End: July 21, 2024 Goals (unrecognized section and content) Goals may be documented in a n alternate section FOR RECORDS PERTAINING TO PATIENTS WHO ARE [...] BE BASED ON THE PRIMARY CLINICAL RECORDS. [facility] [employer] [facility]. provides no warranty or guarantee of the accuracy or completeness of information in this document.
== END 2024-08-16 19:48 | disposition home or self-care (01) ==
LOC: SLEEP 19:47
PROVIDERS: PCP Internal Medicine; Visit Provider Internal Medicine
DX: G47.33 Obstructive sleep apnea (adult) (pediatric) (principal)
CPT/HCPCS: 95811

== ENCOUNTER 2024-09-23 14:44 | Outpatient (OUT) | payer OTHER, SELFPAY ==
--- OUTSIDE RECORDS SUMMARY | 2024-09-21 04:30 | XMS_ITS ---
Author Organization The [facility] in [place] Address [address] [place] [address] Care Team Providers Care Granulizing Machine Operator Name Role Phone KAYY PANIAGUA Primary Care Provider [phone] Benji Paniagua [phone] Allergies Allergen (clinical drug ingredient) Drug/Non Drug Allergy documented on EMR Reaction Allergy Type Onset Date Status meperidine Demerol vomiting Drug Allergy Active REASON FOR VISIT lumps on finger joints on left hand- no pain with them Medications Medication SIG (Take, Route, Frequency, Duration) Notes Start Date End Date Status dilTIAZem HCl ER Coated Beads 240 MG 1 capsule Orally Once a day for 30 days Active Lisinopril 10 MG Oral for 21 Days Active Imitrex 100 MG 1 tablet at least 2 hours between doses as needed Orally Once a day 03/31/2024 Active Pantoprazole Sodium 40 MG 1 tablet Orall y BID for 30 days Active Ondansetron 4 MG 1 tablet on the tong ue and allow to dissolve Orally Q 6 hours PRN nausea PRN Active Aspirin 81 81 MG 1 tablet Orally Once a day Active Centrum Adults - as directed Orally Active Celecoxib 100 MG 1 capsule with food Oral bid for 30 days Active Desvenlafaxine Succinate ER 100 MG TAKE 1 TABLET BY MOUTH EVERY DAY FOR 30 DAYS for 90 Active Dicyclomine HCl 20 MG 1 tablet Orally Th ree times a day PRN Active Social History Tobacco Use: Social History Observation Description Date Details (start date - stop date) Former Smoker NA - NA Tobacco Control (Standard) Question Answer Notes Tobacco use: Former smoker How long has it been since y ou last smoked? Greater than 10 years Additional Findings: Tobacco non-user Ex -moderate cigarette smoker (10-19/day) Vital Signs Blood pressure systolic 120 mm Hg 09/22/19 25 Blood pressure diastolic 82 mm Hg 025 Height 67 in 09/21/2024 Weight 228.0 lbs 09/21/2024 BMI 35.71 kg/m2 09/21/2024 Encounters Encounter Location Date Provider Diagnosis [facility] [address] [place] [address] 09/21/2024 Benji Paniagua Anemia D64.9 and Finger mass, left R22.32 Assessments Encounter Date Diagnosis (ICD Code) Assessment Notes Treatment Notes Treatment Clinical Notes Section Notes 09/21/2024 Anemia (ICD-10 - D64.9) 09/21/2024 Finger mass, left (ICD-10 - R22.32) Plan Of Treatment Next Appt Details Provider Name:Benji Nader Paniagua, 11:30:00 AM, [address] [place], [address], Provider Name:Owen Busby, 10/12/2024 08:30:00 AM, [address] [place], [address], Progress Notes * Nicanor STEELE: 6 (59 yo F)Acc No.[id number]:09/21/2024 Progress Note Patient: Malu ROMANO Provider: Merced Paniagua ([facility])MD :1965 A ge:59 Y S ex:Female Date:09/21/2024 Address:[address] [place], [place] [id number] Pcp:KAYY PANIAGUA Check In:08:22 AM ESTCheck O ut:08:50 AM EST Subjective: * Chief Complaints: * L umps on finger joints on left hand- no pain with them * HPI: G eneral: Let hadn wiht nodule over joints - but left 5th digit in lateral portion - had extensive work up 01/17 - for rheum and negative seen menopause specialist - then send to rheum. * ROS: E ENT: hearing changes d enies. v isual changes d enies.?non-healing mouth sores d enies. s wollen glands or neck lumps d enies. h oarseness d enies. s ore throat d enies. d ifficulty swallowing d enies. n ose bleeds d enies. n celia congestion d enies. e ar ache d enies. e ar discharge?denies. r inging in ears d enies. l ight sensitivity d enies. e ye pain d enies. b lurring d enies. e ye irritation d enies. d ouble vision d enies.?vision loss d enies. G eneral/Constitutional: Sweats: D enies. F atigue d enies. S leep problems d enies. A norexia d enies. M alaise d enies. W eight loss d enies.?Fatigue or Weakness d enies. F ever or Chills d enies. C ardiovascular: Shortness of Breath w/lying flat d enies. L ightheadedness/dizziness d enies. C hest tightness/ heavy pressure d enies. S welling of legs, ankles, or feet d enies. W aking up with shortness of breath d enies. C hest pain denies. P alpitations d enies. W eight gain d enies. R espiratory: Chronic or frequent cough d enies. C oughing up blood?denies. D ifficulty breathing d enies. P roductive cough d enies. S noring?denies. S hortness of breath that awakens from sleep (PND) d enies. C hest pain d enies. S putum production d enies. W heezing d enies. M usculoskeletal: Joint pain d enies. J oint Fluid d enies. B ack pain d enies. K nee pain d enies. N bertha pain d enies. J oint Stiffness d enies. M uscle cramps d enies. W eakness of muscles d enies. A rthritis d enies. M uscle aches d enies. P ain in shoulder(s) d enies. S wollen joints d enies. * Active Problem List E66.9 Obesity Modified On:07/20/2024U Status:confirmed I48.0 PAF (paroxysmal atri al fibrillation) Modified On:07/20/2024 Status:confirmed G47.33 LOAN (obstructive sle ep apnea) Modified On:07/20/2024U Status:confirmed J30.2 Allergic rhinitis, s easonal Modified On:06/11/2022U Status:confirmed D64.9 Anemia Modified On:07/14/2022U Status:confirmed K50.90 Crohn disease Modified On:06/11/2022 Status:confirmed M50.30 Degenerative disc di sease, cervical Modified On:06/11/2022 Status:confirmed I10 Essential hypertensi on Modified On:04/23/2023U Status:confirmed K21.9 Gastro-esophageal re flux disease Modified On:06/11/2022U Status:confirmed M85.80 Osteopenia Modified On:06/11/2022U Status:confirmed L72.3 Sebaceous cyst Modified On:03/11/2024U Status:confirmed K58.9 IBS (irritable bowel syndrome) Modified On:08/29/2024 Status:confirmed * Medical History: * Surgical History: T otal Hysterectomy EGD and Colonoscopy * Hospitalization/Major Diagno stic Procedure: D enies Past Hospitalization * Family History: F ather: , diagnosed with Other malignant neoplasm of unspecified site. M other: , chronic obstructive pulmonary disease. S ister(s): alive, diagnosed with Other malignant neoplasm of unspecified site. S on(s): alive. D aughter(s): alive. 2 sister(s) . 1 son(s) , [...] When did you stop smokin years ago. * Medications: T akingAspirin 81(Aspirin) 81 MG [...] Tablet Delayed Release 1 tablet Orally BID Medication List reviewed and reconciled with the patientTaking Aspirin 81(Aspirin) 81 MG Tablet Delayed Release [...] Tablet Delayed Release 1 tablet Orally BID Medication List reviewed and reconciled with the patient * Allergies: D emerol: vomiting - Criticality Highno[Allergies Verified] Objective: * Vitals: W t:228.0lbs, Ht: 67 in, BP:120/82mm Hg, BMI:35.71Index, Ht-cm: 170.18 cm, Wt-k.42 kg. * Examination: P hysical Exam: GENERAL: w ell developed, well nourished, in no acute distress. HEAD: n ormocephalic/atraumatic. EYES: p upils equal, round and reactive to light, conjunctivae and sclerae normal. EARS: n o deformity or lesion of external ear, canals and TM appear normal bilaterally, TM's intact, not inflamed with normal light reflex, hearing grossly normal to conversational speech. NOSE: n o deformity, discharge, inflammation, or lesions.? MOUTH: m ucous membranes moist, normal oropharynx and posterior pharynx without lesions or exudates, tongue normal, dentition normal. NECK: n bertha supple, no masses or palpable cervical nodes, trachea midline, thyroid without nodules, masses, tenderness, or enlargement. CHEST: n o chest wall deformity, no chest wall tenderness.? LUNGS: n ormal respiratory effort and clear to auscultation, no wheezes, rales, or rhonchi, good air exchange. CARDIO: r egular rate and rhythm, normal S1 and S2, nor murmur, rub, or gallop. PULSES: n ormal capillary refill. ABDOMEN: s oft, non-distended, non-tender, no masses. MUSCULOSKELETAL: n o deformity or scoliosis noted, normal range of motion, joints normal, no erythema, edema, effusion, or ecchymosis. EXTREMITY: n o clubbing, cyanosis, edema, or deformity with normal ROM in both upper and lower bilateral extremities. NEUROLOGIC: g rossly normal. SKIN: n o rashes, ulcerations, or suspicious lesions. LYMPH NODES: n o cervical adenopathy, nodes normal. MENTAL STATUS: a lert and oriented x3, normal mood and affect. Assessment: * Assessment: 1. A nemia - D64.9 (Primary) 2 . F radha mass, left - R22.32 ? Plan: * Treatment: * Procedure Codes: * Preventive Medicine: Screenings/Counseling: B MA ACTION PLAN Above Normal BMI Follow-up D ietary management education, guidance, and counseling * * Sign off status: Completed Visit Status: C HK (Check Out) true * Provider: Merced Paniagua ([facility])MD Date: 0 09/21/2024 Generated for Printi ng/Faxing/eTransmitting on: 0 09/23/2024 02:47 PM EDT History and Physical Notes * HPI (History of Present Illness) Category Sub-Category Detail Notes Category Not es General Let hadn wiht nodule over joints - but left 5th digit in lateral portion - had extensive work up 01/17 - for rheum and negative seen menopause specialist - then send to rheum Examination Category Sub-Category Detail Notes Category Not es Physical Exam GENERAL: well developed, well nourished, in no acute distress HEAD: normocephalic/atraum atic EYES: pupils equal, round and reactive to light, conjunctivae and sclerae normal EARS: no deformity or lesi on of external ear, canals and TM appear normal bilaterally, TM's intact, not inflamed with normal light reflex, hearing grossly normal to conversational speech NOSE: no deformity, discha rge, inflammation, or lesions MOUTH: mucous membranes ori st, normal oropharynx and posterior pharynx without lesions or exudates, tongue normal, dentition normal NECK: neck supple, no mass es or palpable cervical nodes, trachea midline, thyroid without nodules, masses, tenderness, or enlargement CHEST: no chest wall deform ity, no chest wall tenderness LUNGS: normal respiratory e ffort and clear to auscultation, no wheezes, rales, or rhonchi, good air exchange CARDIO: regular rate and rhy thm, normal S1 and S2, nor murmur, rub, or gallop PULSES: normal capillary ref ill ABDOMEN: soft, non-distended, non-tender, no masses RECTAL: MUSCULOSKELETAL: no deformity or scol iosis noted, normal range of motion, joints normal, no erythema, edema, effusion, or ecchymosis EXTREMITY: no clubbing, cyanosi s, edema, or deformity with normal ROM in both upper and lower bilateral extremities NEUROLOGIC: grossly normal SKIN: no rashes, ulceratio ns, or suspicious lesions LYMPH NODES: no cervical adenopat hy, nodes normal MENTAL STATUS: alert and oriented x 3, normal mood and affect
--- OUTSIDE RECORDS SUMMARY | 2024-09-21 04:44 | XMS_ITS ---
Author Organization The [facility] in [place] Address [address] [place] [address] Care Team Providers Care It Compliance Analyst Name Role Phone KAYY PANIAGUA Primary Care Provider [phone] Benji Paniagua [phone] Reason For Referral Diagnosis 1 Mass of finger (R22. 30) Referral Organization [facility] Referring Provider First Name Benji Referring Provider Last Name Arcelia Referring Provider Speciality Family [facility] icine Referred Provider Lilia Latham Referred Provider Specialty Orthopedic S urgery Referral Priority Routine REASON FOR VISIT Noa referral Encounters Encounter Location Date Provider Diagnosis [facility] [address] [place] [address] 09/21/2024 Benji Paniagua Mass of finger R22.3 0 Assessments Encounter Date Diagnosis (ICD Code) Assessment Notes Treatment Notes Treatment Clinical Notes Section Notes 09/21/2024 Mass of finger (ICD-10 - R22.30) Plan Of Treatment Referrals Referral Date Details 09/21/2024 09/21/2024Lilia Next Appt Details Provider Name:Benji Doe Arcelia, 11:30:00 AM, [address] [place], [address], Provider Name:Owen Busby, 10/12/2024 08:30:00 AM, [address] [place], [address], Progress Notes * Nicanor STEELE: 6 (59 yo F)Acc No.[id number]:09/21/2024 Patient: Malu ROMANO :1965 A ge:59 Y S ex:Female Address:[address] [place] [address], [phone] Subjective: * Chief Complaints: * C paul referral * Medical History: * Surgical History: * Hospitalization/Major Diagno stic Procedure: * Medications: Objective: * Vitals: * Physical Examination: Assessment: * Assessment: 1. M ass of finger - R22.30 (Primary) Plan: * Treatment: * Procedure Codes: * true * Date: Generated for Naima maurice/Gisele/Nikoleitting on: 0 09/23/2024 02:47 PM EDT Consultation Request Notes Referral Date Referring Provider Referred Provider Not es 09/21/2024 Benji Paniagua Colleen
--- NOTE | 2024-09-23 | XR_ITS ---
The [address] [address] Patient Name: ESSIE STEELE MRN: [id number] date: 1965 Sex: F Assigned Patient Location: [facility] Current Patient Location: [facility] Accession/Order Number: [id number] Exam Date: 09/23/2024 15:09 Report Date: 09/23/2024 15:10 At the request of: KAYY MADRID MD Procedure: XR chest 2V Chest 2 views CLINICAL HISTORY: Pleurisy; R09.1 COMPARISON: None FINDINGS: Heart normal size. Lungs are clear. No free air. XR/XR chest 2V IMPRESSION: NO ACUTE CARDIOPULMONARY ABNORMALITY. Impression dictated by: Mauro Pal Jr., DAnthonyOAnthony 09/23/2024 3:10 PM Dictation Location: [place] [address] Electronically authenticated by: [id number] Y Date: 09/23/2024 15:10
--- OUTSIDE RECORDS SUMMARY | 2024-09-23 07:30 | XMS_ITS ---
Author Organization The [facility] in [place] Address [address] [place] [address] Care Team Providers Care Rehab Spec Name Role Phone KAYY PANIAGUA Primary Care Provider Benji Paniagua [phone] Allergies Allergen (clinical drug ingredient) Drug/Non Drug Allergy documented on EMR Reaction Allergy Type Onset Date Status meperidine Demerol vomiting Drug Allergy Active REASON FOR VISIT Presents to office with granddaughter for c/o right chest/muscle pain- hurts to deep breathe. Started on Thursday. Is getting worse. Has been working out., Needs rf Pantoprazole Medications Medication SIG (Take, Route, Frequency, Duration) Notes Start Date End Date Status predniSONE 20 MG 3 tablets Orally Onc e a day for 5 days 09/23/2024 Active Imitrex 100 MG 1 tablet at least 2 hours between doses as needed Orally Once a day 03/31/2024 Active Lisinopril 10 MG 1 tablet Oral Once a day for 21 days Active Ondansetron 4 MG 1 tablet on the tong ue and allow to dissolve Orally Q 6 hours PRN nausea PRN Active Pantoprazole Sodium 40 MG 1 tablet Orall y BID for 30 days Active Dicyclomine HCl 20 MG 1 tablet Orally Th ree times a day PRN Active dilTIAZem HCl ER Coated Beads 240 MG 1 capsule Orally Once a day for 30 days Active Celecoxib 100 MG 1 capsule with food Oral bid for 30 days Active Centrum Adults - as directed Orally Active Desvenlafaxine Succinate ER 100 MG TAKE 1 TABLET BY MOUTH EVERY DAY FOR 30 DAYS for 90 Active Aspirin 81 81 MG 1 tablet Orally Once a day Active Social History Tobacco Use: Social History [...] Problem Status W/U Status Risk Notes Problem Pleurisy ([id number]) Pleurisy (R09.1) Active confirmed Vital Signs Blood pressure systolic 104 mm Hg 09/24/19 25 Blood pressure diastolic 60 mm Hg 025 Height 67 in 09/23/2024 Weight 227.0 lbs 09/23/2024 BMI 35.55 kg/m2 09/23/2024 Oximetry 97 % 09/23/2024 Encounters Encounter Location Date Provider Diagnosis [facility] [address] [place] [address] 09/23/2024 Benji Paniagua Pleurisy R09.1 Assessments Encounter Date Diagnosis (ICD Code) Assessment Notes Treatment Notes Treatment Clinical Notes Section Notes 09/23/2024 Pleurisy (ICD-10 - R09.1) Plan Of Treatment Medication Medication Name Sig Start Date Stop Date Notes predniSONE 20 MG 3 tablets Orally Once a day for 5 days Pending Test Test Name Order Date XR CHEST 2 V 09/23/2024 Next Appt Details Provider Name:Benji Paniagua, 11:30:00 AM, [address] [place], [address], Provider Name:Owen Busby, 10/12/2024 08:30:00 AM, [address] [place], [address], Progress Notes * Malu STEELEDOB: 6 (59 yo F)Acc No.[id number]:09/23/2024 UNLOCKED PROGRESS NOTE Progress Note Patient: Malu ROMANO Provider: Merced Paniagua ([facility])MD :1965 A ge:59 Y S ex:Female Date:09/23/2024 Address:[address] [place], [place] [id number] Pcp:KAYY PANIAGUA Check In:11:23 AM ESTCheck O ut:12:01 PM EST Subjective: * Chief Complaints: * 1 . Presents to office with granddaughter for c/o right chest/muscle pain- hurts to deep breathe. Started on Thursday. Is getting worse. Has been working out.. 2. Needs rf Pantoprazole. * HPI: G eneral: R sided chest wall del woke her up in the middle of the night - some better with moving around -. * Medical History: G ronit-esophageal reflux disease, Osteopenia, Degenerative disc disease, cervical, Essential hypertension, Allergic rhinitis, seasonal, Anemia, LOAN (obstructive sleep apnea), PAF (paroxysmal atrial fibrillation), Crohn disease, Sebaceous cyst, Obesity. * Surgical History: T otal Hysterectomy , EGD and Colonoscopy . * Family History: F ather: , diagnosed [...] When did you stop smokin years ago. D rug/Alcohol: A EMMANUELLE-C (Standard) D id you have a drink containing alcohol in the past year? Y es H ow often did you have six or more drinks on one occasion in the past year? N ever (0 point) H ow many drinks did you have on a typical day when you were drinking in the past year? 1 or 2 drinks (0 point) H ow often did you have a drink containing alcohol in the past year? M onthly or less (1 point) P oints 1 I nterpretation N egative * Medications: T aking Aspirin 81(Aspirin) 81 MG Tablet Delayed Release 1 tablet Orally Once a day , Taking Celecoxib 100 MG Capsule 1 capsule with food Oral bid , Taking Centrum Adults(Multiple Vitamins-Minerals) - Tablet as directed Orally , Taking Desvenlafaxine Succinate ER 100 MG Tablet Extended Release 24 Hour TAKE 1 TABLET BY MOUTH EVERY DAY FOR 30 DAYS , Taking Dicyclomine HCl 20 MG Tablet 1 tablet Orally Three times a day , Notes to Pharmacist: PRN, Taking dilTIAZem HCl ER Coated Beads 240 MG Capsule Extended Release 24 Hour 1 capsule Orally Once a day , Taking Imitrex(SUMAtriptan Succinate) 100 MG Tablet 1 tablet at least 2 hours between doses as needed Orally Once a day , Taking Lisinopril 10 MG Tablet 1 tablet Oral Once a day , Taking Ondansetron 4 MG Tablet Disintegrating 1 tablet on the tongue and allow to dissolve Orally Q 6 hours PRN nausea , Notes to Pharmacist: PRN, Taking Pantoprazole Sodium 40 MG Tablet Delayed Release 1 tablet Orally BID , Medication List reviewed and reconciled with the patient * Allergies: D emerol: vomiting - Criticality High. Objective: * Vitals: W t:227.0lbs, Ht: 67 in, BP:104/60mm Hg, BMI:35.55Index, Oxygen sat %:97%, Ht-cm: 170.18 cm, Wt-k.97 kg. * Examination: A bdomen Exam:: L uhgs - clear Chest wall not tendenrs. Assessment: * Assessment: 1. P leukyley - R09.1 (Primary) Plan: * Treatment: * Preventive Medicine: Screenings/Counseling: B OK ACTION PLAN Above Normal BMI Follow-up D ietary management education, guidance, and counseling See treatment section of progress note for complete details of management plan. * * Electronic signature of Benji Paniagua MD, [phone] on 09/23/2024 at 02:47 PM EDT Sign off status: Pending Visit Status: Pravin SIMEON (Check Out) * Provider: eMrced Paniagua ([facility])MD Date: 09/23/2024 Generated for Naima maurice/Gisele/eTransmitting on: 09/23/2024 02:47 PM EDT History and Physical Notes * HPI (History of Present Illness) Category Sub-Category Detail Notes Category Not es General R sided chest w all del woke her up in the middle of the night - some better with moving around - Examination Category Sub-Category Detail Notes Category Not es Abdomen Exam: Luhgs - clear Chest wall not tendenrs
--- OUTSIDE RECORDS SUMMARY | 2024-09-23 14:47 | XMS_ITS | Clinical Summary ---
Author Organization [facility] Address [address] [place] [address] Care Team Providers Care Lead Military Analyst Name Role Phone Brett Paniagua MD Primary Care Provider [phone] Allergies Active Allergy Reactions Criticality Noted Date [...] 07/03/2023 Overview (09/24/2023): CARLITO=9.5 events/hour; Leroy SpO2=84%; Ygumhv=311.0 lbs; BMI=35.7 kg/m2, Home Sleep Apnea Testing on 07/01/[address] [facility] Family History Medical History Relation Name Comments [...] 1965 Mammogram 2006 Pap Smear 04/12/2021 04/12/2018, 04/12/2018, 03/26 Influenza Vaccine (#1) 2024 Cervical Cancer Screening 05/05/2029 HPV/Cotest 05/05/2029 [...] occur. Test Methodology: CANCELED [facility] Comment: The vivit(R) Commuter Train Operator was unable to read this specimen. Therefore a manual review was performed. Result canceled by the ancillary. HPV Aptima Negative Negative [facility] Comment: This nucleic acid amplification test detects fourteen high-risk HPV types (16,18,31,33,35,39,45,51,52,56,58,59,66,68) without differentiation. Vaginal Fluid 05/05/2024 05/06/2024 Narrative [facility] - 05/10/2024 1:07 PM EDT Performed at: - [facility] [id number] Assembler Bonding: Ghada Melo MD, Phone: [phone] Performed at: - [facility] [id number] Assembler Bonding: Ghada Melo MD, Phone: [phone] Specimen Comment: No. of containers..01 ThinPrep Vial us Wolf Medley MD LAB BLOOD ORDERABLES Edited Re sult - Final [facility] from Last 3 Months or Most Recently Relevant to Health Maintenance Insurance [employer] Care Teams Lead Military Analyst Relationship Specialty Start Date End Date Brett Paniagua MD PCP - General Family Medicine 09/24/23
--- OUTSIDE RECORDS SUMMARY | 2024-09-23 14:47 | XMS_ITS | Encounter Summary ---
Author Organization [facility] Address [facility] [place] [address] Care Team Providers Care Supervisor Electric Name Role Phone Unavailable Primary Care Provider Unavailabl e Source Comments In the event this information is protected by the Federal Confidentiality of Alcohol and Drug AbusePatient Records regulations: The Federal rules restrict any use of the information to criminally investigate or prosecute any alcohol or drug abuse patient.[facility] Encounter Details Date Type Department Care Team (Late st Contact Info) Description 03/08/2024 Patient [facility] [place], [place] [id number] Provider, [facility] Internal medicine Social History [...] is lower risk 7 01/18/2024 Data from: https://www.neighborhoodatlas.medicine.[facility].edu/. Last address used for calculation [address] 01/18/2024 Comments No Sex and Gender [...]
--- OUTSIDE RECORDS SUMMARY | 2024-09-23 14:47 | XMS_ITS | Encounter Summary ---
Author Organization [facility] Address [address], [address] [place] [address] Care Team Providers Care Fittings Tightener Name Role Phone Brett Paniagua MD Primary Care Provider [phone] Reason for Visit * Reason Comments Medication Refill Encounter Details Date Type Department Care Team (Late st Contact Info) Description 03/18/2017 Refill [facility] [place] [address] [place] [phone] Arian Herrera MD [address] [facility] [address] [place] [address] Medication Refill Social History Tobacco [...] migrainosus documented in this encounter Care Teams Fittings Tightener Relationship Specialty Start Date End Date Brett Paniagua MD [address] [place] [address] PCP - General Family Medicine 04/06/17 documented as of this encounter
--- OUTSIDE RECORDS SUMMARY | 2024-09-23 14:47 | XMS_ITS | Encounter Summary ---
Author Organization [facility] Address [address] [place] [address] Care Team Providers Care Industrial Nurse Name Role Phone Unavailable Primary Care Provider Unavailabl e Source Comments In the event this information is protected by the Federal Confidentiality of Alcohol and Drug AbusePatient Records regulations: The Federal rules restrict any use of the information to criminally investigate or prosecute any alcohol or drug abuse patient.[facility] Reason for Visit * Reason Comments Received Outside Medical Records Encounter Details Date Type Department Care Team (Late st Contact Info) Description 02/02/2024 Telephone Rheumatology [address] [phone] Renny Baron MD [address] [phone] Received Outside Medical Records Social History Tobacco [...] is lower risk 7 01/18/2024 Data from: https://www.neighborhoodatlas.medicine.[facility].edu/. Last address used for calculation [address] [...] 2:43 PM EST Received XR report from [facility] collected on 01/26. Scanned for review. XR sacroilinc joint WILMA XR shoulder WILMA min 2v documented in this encounter Plan of Treatment Not on file documented as of this encounter Visit Diagnoses Not on filedocumented in this encounter
--- OUTSIDE RECORDS SUMMARY | 2024-09-23 14:47 | XMS_ITS | Clinical Summary ---
Author Organization [facility] Address [address], [address] [place] [address] Care Team Providers Care Home Health Scheduler Name Role Phone Brett Paniagua MD Primary Care Provider [phone] Allergies No known active allergies Medications Loratadine [...] file Insurance AENA AETNA AETNA Care Teams Home Health Scheduler Relationship Specialty Start Date End Date Brett Paniagua MD [address] [phone] PCP - General Family Medicine 04/06/17
--- OUTSIDE RECORDS SUMMARY | 2024-09-23 14:47 | XMS_ITS | Clinical Summary ---
Author Organization [facility] Address [address] [place], [place] [id number] Care Team Providers Care Yard Hostler Name Role Phone Unavailable Primary Care Provider [...] times a week. 30 Patch 1 03/01/2024 Active Active Problems Problem Noted Date Diagnosed [...] is lower risk 7 01/18/2024 Data from: https://www.neighborhoodatlas.[facility]/. Last address used for calculation [address] [facility] 01/18/2024 Comments No Sex and Gender Information [...] 2) 01/17/2016 Cervical Cancer Screening 04/12/2021 04/12/2018 Influenza Vaccine (#1) 2024 12/07/2015 Diabetes Screening 01/17/2027 01/18/2024 Hepatitis C Screening [...] - 8.0 g/dL 01/18/2024 8:14 PM EST [facility] Albumin 4.4 3.9 - 4.9 g/dL 01/18/2024 8:14 PM EST [facility] Calcium, Total 9.2 8.5 - 10.2 mg/dL 01/18/2024 8:14 PM EST [facility] Bilirubin, Total 0.4 0.2 - 1.3 mg/dL 01/18/2024 8:14 PM EST [facility] Alkaline Phosphatase 148(H) 34 - 123 U/L 01/18/2024 8:14 PM EST [facility] AST 25 13 - 35 U/L 01/18/2024 8:14 PM EST [facility] ALT 20 7 - 38 U/L 01/18/2024 8:14 PM EST [facility] Glucose 91 74 - 99 mg/dL 01/18/2024 8:14 PM EST [facility] Comment: The [place] Diabetes Association (ADA) provides guidance for cutoff [...] Standards of Medical Care in Diabetes 2016, [place] [employer]. Diabetes Care. 2016.39(Suppl 1). BUN 12 7 - 21 mg/dL 01/18/2024 8:14 PM EST [facility] Creatinine 0.59 0.58 - 0.96 mg/dL 01/18/2024 8:14 PM EST [facility] Sodium 140 136 - 144 mmol/L 01/18/2024 8:14 PM EST [facility] Potassium 3.7 3.7 - 5.1 mmol/L 01/18/2024 8:14 PM EST [facility] Chloride 102 98 - 107 mmol/L 01/18/2024 8:14 PM EST [facility] CO2 26 22 - 30 mmol/L 01/18/2024 8:14 PM EST [facility] Anion Gap 12 8 - 15 mmol/L 01/18/2024 8:14 PM EST [facility] Estimated Glomerular Filtration Rate 105 >=60 mL/min/1.7 3m 01/18/2024 8:14 PM EST [facility] Comment:Estimated Glomerular Filtration Rate (eGFR) is [...] us Renny Baron MD LABORATORY Final Result [facility] [address] [place] [address], * HEPATITIS C ANTIBODY IA WITH CONFIRMATION (01/18/2024 11:32 AM EST) Hep C Antibody IA Negative Negative 01/18/2024 6:12 PM EST [facility] Comment:The result suggests no evidence of active infection with Hepatitis C virus. Should recent infection be suspected, repeat testing may be considered 4-6 weeks after this draw. Blood BLOOD SPECIMEN / Unknown Venipuncture / Unknown 01/18/2024 11:32 AM EST 01/18/2024 11:33 AM EST us Renny Baron MD LABORATORY Final Result [facility] [address] [facility] [address] [phone], from Last 3 Months or Most Recently Relevant to Health Maintenance Insurance AETNA
--- OUTSIDE RECORDS SUMMARY | 2024-09-23 14:47 | XMS_ITS | Encounter Summary ---
Author Organization [facility] Address [address] [place] [id number] Care Team Providers Care Intravenous Therapy Nurse Name Role Phone Unavailable Primary Care Provider Unavailabl e Source Comments In the event this information is protected by the Federal Confidentiality of Alcohol and Drug AbusePatient Records regulations: The Federal rules restrict any use of the information to criminally investigate or prosecute any alcohol or drug abuse patient.[facility] Encounter Details Date Type Department Care Team (Late st Contact Info) Description 02/02/2024 Patient Msg Rheumatology [address] [phone] Renny Baron MD [address] [phone] xrays Social History Tobacco Use Types Packs/Day [...] is lower risk 7 01/18/2024 Data from: https://www.neighborhoodatlas.[facility].edu/. Last address used for calculation [address] [facility] 01/18/2024 Comments No Sex and Gender Information Value Date Recorded Sex Assigned at Not on file Legal Sex Female 11:23 AM EDT Gender Identity Not on file Sexual Orientation Not on file documented as of this encounter Plan of Treatment Not on file documented as of this encounter Visit Diagnoses Not on filedocumented in this encounter
--- OUTSIDE RECORDS SUMMARY | 2024-09-23 14:47 | XMS_ITS | Encounter Summary ---
Author Organization [facility] Address [address] [place] [address] Care Team Providers Care Manager Diversity Name Role Phone Unavailable Primary Care Provider Unavailabl e Source Comments In the event this information is protected by the Federal Confidentiality of Alcohol and Drug AbusePatient Records regulations: The Federal rules restrict any use of the information to criminally investigate or prosecute any alcohol or drug abuse patient.[facility] Encounter Details Date Type Department Care Team (Late st Contact Info) Description 03/24/2024 Patient Msg Navigate [facility] [place] [address] [place] [address] Provider, Dennise Establish with primary care Social [...] is lower risk 7 01/18/2024 Data from: https://www.neighborhoodatlas.medicine.[facility].edu/. Last address used for calculation [address] [...]
--- OUTSIDE RECORDS SUMMARY | 2024-09-23 14:47 | XMS_ITS | Clinical Summary ---
Author Organization [facility] Address [address] [place] [address] Care Team Providers Care Funeral Driver Name Role Phone Brett Paniagua MD Primary Care Provider [phone] Allergies Active Allergy Reactions Criticality Noted Date [...] 07/01/19 Overview (07/03/2023): CARLITO=9.5 events/hour; Leroy SpO2=84%; Mfchsw=066.0 lbs; BMI=35.7 kg/m2, Home Sleep Apnea Testing on 07/01/2023 at [facility] Atrial fibrillation 03/04/2023 Essential hypertension 06/12/2022 Encounters Date Type Department Care Team Description 06/24/2024 11:40 AM EDT Office Visit [address] [phone] Felipe Burger MD Paroxysmal atrial [...] 5 season) 2023 04/04/2020, 03/07/2020 Influenza Vaccine (#1) 2024 HIB Vaccines Aged Out No longer [...] complete this topic Insurance AETNA Care Teams Funeral Driver Relationship Specialty Start Date End Date Brett Paniagua MD [address] [facility] [place] [address] PCP - General 03/30/23
--- OUTSIDE RECORDS SUMMARY | 2024-09-23 14:47 | XMS_ITS | Encounter Summary ---
Author Organization [facility] Address [address] [place] [address] Care Team Providers Care Tone Regulator Name Role Phone Unavailable Primary Care Provider Unavailabl e Source Comments In the event this information is protected by the Federal Confidentiality of Alcohol and Drug AbusePatient Records regulations: The Federal rules restrict any use of the information to criminally investigate or prosecute any alcohol or drug abuse patient.[facility] Reason for Referral * Consult, Test, Treat (Routine) - Authorized Specialty Diagnoses / Procedures Referred By Contac t Referred To Contact INTERNAL MEDICINE Diagnoses Elevated blood pressure reading without diagnosis of hypertension Procedures ESTABLISH WITH PRIMARY CARE NEW PATIENT OFFICE/OUTPATIENT [facility] 60 MINUTES Zachary Miller MD [address] [place] [address] Phone: tel: fax: Internal Medicine [address] [address] Phone: tel: Referral ID Status Reason Start Date Expiration Date Visits Requested Visits Authorized [id number] Authorized PCP Requested Referral 02/29/2024 02/28/2025 1 1 Reason for Visit * Reason Comments Patient Update Encounter Details Date Type Department Care Team (Late st Contact Info) Description 02/29/2024 Telephone [facility] [address] [address] Zachary Miller MD [address] [place] [address] Patient Update Social History Tobacco Use Types [...] is lower risk 7 01/18/2024 Data from: https://www.neighborhoodatlas.medicine.[facility].edu/. Last address used for calculation [address] [facility] 01/18/2024 Comments No Sex and Gender Information [...]
--- OUTSIDE RECORDS SUMMARY | 2024-09-23 14:47 | XMS_ITS | Encounter Summary ---
Author Organization [facility] Address [facility] [place] [address] Care Team Providers Care Manager Brand Name Role Phone Unavailable Primary Care Provider Unavailabl e Source Comments In the event this information is protected by the Federal Confidentiality of Alcohol and Drug AbusePatient Records regulations: The Federal rules restrict any use of the information to criminally investigate or prosecute any alcohol or drug abuse patient.[facility] Encounter Details Date Type Department Care Team (Late st Contact Info) Description 01/14/2024 Patient [facility] [place] [address] Julita Washington RPh At your next appointment, choose [facility]. Social History Tobacco Use Types [...] lower risk 7 01/18/2024 Data from: https://www.neighborhoodatlas.medicine.[facility]/. Last address used for calculation [address] [facility] 01/18/2024 Comments No Sex and Gender [...]
--- OUTSIDE RECORDS SUMMARY | 2024-09-23 14:48 | XMS_ITS | Patient Health Record ---
Author Organization [facility] [place] Address [address] [place] [address] Care Team Providers Care Impact Hammer Operator Name Role Phone KAYY PANIAGUA Primary Care Provider Owen Busby Unavailable [phone] Benji Paniagua Unavailable [phone] Allergies Allergen (clinical drug ingredient) Drug/Non Drug Allergy documented on EMR Reaction Allergy Type Onset Date Status meperidine Demerol vomiting Drug Allergy Active Results Component Value Reference Range Notes CBC AUTO DIFF Reviewed date:03/14/2024 07:09:55 PM Interpretation: Performing Lab: Notes/Report: [facility] , White Blood Count 13.0 4.0-11.0 10 [...] 0.00-0.03 10 3/uL Performing Lab: see note - [facility] LB PROF 14(COMP METB) Reviewed date:03/14/2024 07:09:55 PM Interpretation: Performing Lab: Notes/Report: [facility] , Sodium 140 136-145 mmol/L Potassium 3.8 [...] 0.8 Performing Lab: see note ML - [facility] LB XR shoulder WILMA min 2V Reviewed date:01/27/2024 05:36:58 PM Interpretation: Performing Lab: Notes/Report: Source Facility: [facility] [place] [address] [place] [address] XRay Report Signed Patient: MALU STEELE MR#: [id number] : 1965 Acct:[id number] Age/Sex: 59 / F ADM Date: 01/27/24 Loc: RAD Attending Dr: Non-Staff Physician Cj Ordering Physician: PhysicianMarsStaff Cj Date of Service: 01/27/24 Procedure(s): XR shoulder WILMA min 2V Accession Number(s): [id number] cc: Kayy Paniagua M.D.; Amarjit Otto M.D. [place] [id number] Patient Name: MALU STEELE MRN: [id number] date: 1965 Sex: F Assigned Patient Location: [facility] Current Patient Location: [facility] Accession/Order Number: [id number] Exam Date: 01/27/2024 14:45 Report Date: 01/27/2024 [...] Signed By: 01/27/24 1602 DD/ 1600 TD/TT: Ornamenter Hand: [place] [address] XRay Report Signed Patient: KATERINA STEELE MR#: [id number] : 1965 Acct:[id number] Age/Sex: 59 / F ADM Date: 01/27/24 Loc: RAD Attending Dr: Bertram Otto M.D. Ordering Physician: Amarjit Otto M.D. Date of Service: 01/27/24 Procedure(s): XR gina ulder WILMA min 2V Accession Number(s): [id number] cc: Kayy Paniagua M.D. ; Amarjit Otto M.D. [place] [address] Patient Name: MALU STEELE MRN: [id number] date: 1965 Sex: F Assigned Patient Loc ation: RAD Current Patient Loca tion: RAD Accession/Order Numb er: [id number] Exam Date: 14:45 Report Date: 01/27/2024 16:00 [...] MCKEE Date: 01/27/2024 16:00 Dictated By: Zoran cMkee M.D. Signed By: 01/27/24 1602 DD/ 99 TD/TT: Ornamenter Hand: XR sacroiliac joint WILMA Reviewed date:01/27/2024 05:36:58 PM Interpretation: Performing Lab: Notes/Report: Source Facility: [place] [address] [place] [address] XRay Report Signed Patient: MALU STEELE MR#: [id number] : 1965 Acct:[id number] Age/Sex: 59 / F ADM Date: 01/27/24 Loc: RAD Attending Dr: Amarjit Otto M.D. Ordering Physician: Amarjit Otto M.D. Date of Service: 01/27/24 Procedure(s): XR sacroiliac joint WILMA Accession Number(s): [id number] cc: Kayy Paniagua M.D.; Amarjit Otto M.D. [address] [address] Patient Name: MALU STEELE MRN: [id number] date: 1965 Sex: F Assigned Patient Location: [facility] Current Patient Location: [facility] Accession/Order Number: [id number] Exam Date: 01/27/2024 14:45 Report Date: 01/27/2024 15:57 At the request of: AMARJIT PHYSICIAN Procedure: XR sacroiliac joint WILMA PROCEDURE: [...] Signed By: 01/27/24 1559 DD/ 1557 TD/TT: Ornamenter Hand: The [address] [address] XRay Report Signed Patient: KATERINA STEELE MR#: [id number] : 1965 Acct:[id number] Age/Sex: 59 / F ADM Date: 01/27/24 Loc: DREW Attending Dr: Bertram Otto M.D. Ordering Physician: Amarjit Otto M.D. Date of Service: 01/27/24 Procedure(s): XR sacroiliac joint WILMA Accession Number(s): [id number] cc: Kayy Paniagua M.D. ; PhysicianAmarjit M.D. The [place] [address] Patient Name: MALU STEELE MRN: [id number] date: 1965 Sex: F Assigned Patient Loc ation: RAD Current Patient Loca tion: RAD Accession/Order Numb er: [id number] Exam Date: 14:45 Report Date: 01/27/2024 15:57 At the request of: NON-STAFF PHYSICIAN Procedure: XR sacroi liac joint WILMA [...] Mckee M.D. Signed By: 01/27/24 1559 DD/ 56 TD/TT: Ornamenter Hand: XR hand WILMA 2V Reviewed date:01/27/2024 05:36:58 PM Interpretation: Performing Lab: Notes/Report: Source Facility: [place] [address] [place] [address] XRay Report Signed Patient: MALU STEELE MR#: [id number] : 1965 Acct:[id number] Age/Sex: 59 / F ADM Date: 01/27/24 Loc: DREW Attending Dr: Non-Staff Physician Cj Ordering Physician: Amarjit Otto M.D. Date of Service: 01/27/24 Procedure(s): XR hand WILMA 2V Accession Number(s): [id number] cc: Kayy Paniagua M.D.; PhysicianAmarjit M.D. The [address] [address] Patient Name: MALU STEELE MRN: [id number] date: 1965 Sex: F Assigned Patient Location: RAD Current Patient Location: RAD Accession/Order Number: [id number] Exam Date: 01/27/2024 14:45 Report Date: 01/27/2024 [...] Signed By: 01/27/24 1601 DD/ 1558 TD/TT: Ornamenter Hand: [place] [address] XRay Report Signed Patient: KATERINA STEELE MR#: [id number] : 1965 Acct:[id number] Age/Sex: 59 / F ADM Date: 01/27/24 Loc: DREW Attending Dr: Bertram Otto M.D. Ordering Physician: Amarjit Otto M.D. Date of Service: 01/27/24 Procedure(s): XR nice d WILMA 2V Accession Number(s): [id number] cc: Kayy Paniagua M.D. ; Amarjit Otto M.D. The [address] [id number] Patient Name: MALU STEELE MRN: [id number] date: 1965 Sex: F Assigned Patient Loc ation: RAD Current Patient Loca tion: RAD Accession/Order Numb er: [id number] Exam Date: 14:45 Report Date: 01/27/2024 15:58 [...] By: Zoran Mckee M.D. Signed By: 01/27/24 1602 DD/ 1550 TD/TT: Ornamenter Hand: [place] [facility]* Reviewed date:03/14/2024 07:09:55 PM Interpretation: Performing Lab: Notes/Report: [facility] , [place] NEGATIVE NEGATIVE Performing Lab: see note ML - [facility] LB XR pelvis 1-2V Reviewed date:01/28/2024 12:43:16 PM Interpretation: Performing Lab: Notes/Report: Source Facility: [facility] [place] [address] [place] [address] XRay Report Signed Patient: MALU STEELE MR#: [id number] : 1965 Acct:[id number] Age/Sex: 59 / F ADM Date: 01/27/24 Loc: RAD Attending Dr: Mariah-Staff Physician [place] Ordering Physician: Amarjit Otto M.D. Date of Service: 01/27/24 Procedure(s): XR pelvis 1-2V Accession Number(s): [id number] cc: Kayy Paniagua M.D.; Amarjit Otto M.D. The [place] [address] Patient Name: MALU STEELE MRN: [id number] date: 1965 Sex: F Assigned Patient Location: RAD Current Patient Location: Accession/Order Number: [id number] Exam Date: 01/27/2024 14:45 Report Date: 01/28/2024 [...] M.D. Signed By: 01/28/24726 DD/ 3 TD/TT: Ornamenter Hand: [place] [address] XRay Report Signed Patient: KATERNIA STEELE MR#: [id number] : 1965 Acct:[id number] Age/Sex: 59 / F ADM Date: 01/27/24 Loc: RAD Attending Dr: Bertram Otto M.D. Ordering Physician: Amarjit Otto M.D. Date of Service: 01/27/24 Procedure(s): XR pel vis 1-2V Accession Number(s): [id number] cc: Kayy Paniagua M.D. ; Amarjit Otto M.D. The [place] [id number] Patient Name: MALU STEELE MRN: [id number] date: 1965 Sex: F Assigned Patient Loc ation: [facility] Current Patient Location: Accession/Order Numb er: [id number] Exam Date: 14:45 Report Date: 01/28/2024 07:24 [...] M.D. Signed By: 01/28/24726 DD/ 3 TD/TT: Ornamenter Hand: Reason For Referral Diagnosis 1 Sebaceous cyst (L72. 3) Referral Organization [facility] Referring Provider First Name Benji Referring Provider Last Name [facility] Referred Provider Zacarias Syed Referred Provider Specialty General Surg [place] Referral Priority Routine Diagnosis 1 Mass of finger (R22. 30) Referral Organization [facility] Referring Provider First Name Benji Referring Provider Last Name [facility] Referring Provider [facility] Referred Provider Lilia Latham Referred Provider Specialty Orthopedic S urgery Referral Priority Routine Medications Medication SIG (Take, Route, Frequency, Duration) Notes Start Date End Date Status predniSONE 20 MG 3 tablets Orally Onc e a day for 5 days 09/23/2024 Active Dicyclomine HCl 20 MG 1 tablet Orally Th ree times a day PRN Active dilTIAZem HCl ER Coated Beads 240 MG 1 capsule Orally Once a day for 30 days Active Imitrex 100 MG [...] Orall y BID for 30 days Active Aspirin 81 81 MG 1 tablet Orally Once a day Active Celecoxib 100 MG 1 capsule with food Oral bid for 30 days Active Centrum Adults - as directed Orally Active Desvenlafaxine Succinate ER 100 MG TAKE 1 TABLET BY MOUTH EVERY DAY FOR 30 DAYS for 90 Active Immunizations Vaccine Route Administration Date Status [...] W/U Status Risk Notes Problem Sebaceous cyst (230421772) Sebaceous cyst (L72.3) Active confirmed Problem Pleurisy (904337725) Pleurisy (R09.1) Active confirmed Problem Obesity (888382582) Obesity (E66.9) Active confirmed Problem Essential hypertension (22487788) Essential hypertension (I10) Active confirmed Problem Anemia (185654225) Anemia (D64.9) Active confir med Problem Osteopenia (467401811) Osteopenia (M85.80) Active confirmed Problem Obstructive sleep apnea syndrome (43174599) LOAN (obstructive sleep apnea) (G47.33) Active confirmed Problem Irritable bowel syndrome (49975804) IBS (irritable bowel syndrome) (K58.9) Active confirmed Problem Degeneration of cervical intervertebral disc (92057494) Degenerative disc disease, cervical (M50.30) Active confirmed Problem Seasonal allergic rhinitis (362221604) Allergic rhinitis, seasonal (J30.2) Active confirmed Problem Crohn disease (62353874) Crohn disease (K50.90) Active confirmed Problem Atrial fibrillation (23920046) PAF (paroxysmal atrial fibrillation) (I48.0) Active confirmed Problem Gastro-esophageal reflux disease (042274935) Gastro-esophagea l reflux disease (K21.9) Active confirmed Vital Signs Heart Rate 67 /min 07/20/2024 Temperature 96.6 degrees Fahrenheit 07/20/2024 Respiratory Rate 16 /min 07/20/2024 Oximetry 97 % 09/23/2024 Blood pressure diastolic 60 mm Hg 09/23/2024 Height 67 in 09/23/2024 Blood pressure systolic 104 mm Hg 09/23/2024 Weight 227.0 lbs 09/23/2024 BMI 35.55 kg/m2 09/23/2024 Procedures Procedure Date Ordered Date Performed Result Body Sit e Home Sleep Study (Apnea [facility] Plus) 07/20/2024 08/16/2024 N /A Encounters Encounter Location Date Provider Diagnosis [facility] [address] [place] [address] 06/29/2024 [facility] [address] [place] [address] 09/21/2024 Benji Paniagua Mass of finger R22.3 0 [facility] [address] [facility] [place] [address] 12/14/2023 [facility] [address] [place] [address] 01/26/2024 Owen [facility] [address] [facility] [place] [address] 03/02/2024 Owen [facility] [place] [facility] [address] [facility] [place] [address] 03/21/2024 Benji naida [facility] [place] [address] [facility] [place] [address] 03/31/2024 Benji naida [facility] [place] [address] [facility] [place] [address] 06/28/2024 Benji [facility] [address] [facility] [place] [address] 10/27/2023 Benji [facility] [address] [facility] [place] [address] 11/11/2023 Benji [facility] [address] [place] [address] 07/20/2024 Owen [facility] LOAN (obstructive sle ep apnea) G47.33 ; PAF (paroxysmal atrial fibrillation) I48.0 and Obesity E66.9 [facility] [place] [address] [facility] [place] [address] 09/23/2024 Benji Paniagua Pleurisy R09.1 [facility] [place] [address] [place] [address] 03/11/2024 Benji Hoy Essential hypertensi on I10 and Sebaceous cyst L72.3 [facility] [place] [address] [place] [address] 03/14/2024 Benji Hoy Acute bronchitis, unspecified organism J20.9 and Dyspnea R06.00 [facility] [place] [address] [place] [address] 09/21/2024 Benji Hoy Anemia D64.9 and Finger mass, left R22.32 Assessments Encounter Date Diagnosis (ICD Code) Assessment Notes Treatment Notes Treatment Clinical Notes Section Notes 03/11/2024 Essential hypertension (ICD-10 - I10) 03/11/2024 Sebaceous cyst (ICD-10 - L72.3) 03/14/2024 Acute bronchitis, unspecified organism (ICD-10 - J20.9) Rest and drink more liquids, especially water. You may use a humidifier or vaporizer to help keep the drainage moist. Cgnv-sjl-suzeadg Nasal Saline may help the stuffy and runny nose. Use Ibuprofen and or Tylenol as needed for fever, chills, body aches or pain. Children 5 years old should not be given rorb-wzh-xnkkeia cough and cold medications such as guaifenesin and dextromethorphan. If you're over age 5, you may try tjhs-iwb-pauohni cold medications such as guaifenesin and dextromethorphan, [...] to the emergency room or call 911 03/14/2024 Dyspnea (ICD-10 - R06.00) 07/20/2024 LOAN (obstructive sleep apnea) (ICD-10 - [...] LOAN, then I would order an autoCPAP [id number]. If more severe, will order attended titration study. Explained minimum compliance is 70% of all nights >4 hours. She will need to return in 30-90 days to document compliance. Discussed different mask types. She voiced she would like [facility] as her DME. 07/20/2024 PAF (paroxysmal atrial fibrillation) (ICD-10 - I48.0) Discussed relationship with untreated LOAN and PAF. 09/21/2024 Anemia (ICD-10 - D64.9) 09/21/2024 Finger mass, left (ICD-10 - R22.32) 09/23/2024 Pleurisy (ICD-10 - R09.1) 09/21/2024 Mass of finger (ICD-10 - R22.30) 07/20/2024 Obesity (ICD-10 - E66.9) Discussed weight loss - any weight loss can potentially help LOAN, and treatment of LOAN can also aid in weight loss. Zepbound is approved for LOAN, but only for werztpdd-xj-ekhzbm LOAN, so she would not currently qualify for it. She was encouraged to increase activity and monitor caloric intake. Plan Of Treatment Pending Test Test Name Order Date CMP (COMPLETE METABOLIC PANEL) Urine Culture 03/24/2023 CBC W/AUTO DIFF 07/14/2022 ANTIBODY IDENTIFICATION 06/11/2022 CBC AUTO DIFF 03/23/2023 IRON 07/14/2022 MONO 03/14/2024 SNR 04 URINALYSIS 03/24/2023 XR CHEST 2 V 03/02/2023 XR CHEST 2 V 09/23/2024 THYROID PANEL (T4/TSH/FREE T3) 3 Next Appt Details Provider Name:Benji Paniagua, 11:30:00 AM, [address] [place], [address], Provider Name:Owen Busby, 10/12/2024 08:30:00 AM, [address] [place], [address], Insurance Providers Payer Name Payer Address Payer Phone Subscriber Number Group Number Insured Name Patient Relationship to Insured Coverage Start Date Coverage End Date [facility] [address] [place] [address] [id number] Bear Steele Spouse - patient is the [...]
--- OUTSIDE RECORDS SUMMARY | 2024-09-23 14:49 | XMS_ITS | CCD ---
Author Organization [facility] CliniSyva Care Team Providers Care Door Assembler Name Role Phone ANTHONYMamtaADA Referring Unavailable BRETT PANIAGUA Primary Care Unavailable Nader Paniagua Primary Care Provider [phone] René Ly Attending Provider [phone] René Ly Unavailable MERCY ., DR [place] [...] Unavailable Brett Paniagua MD Primary Care Provider [phone] WOLF MEDLEY Attending Unavailable LESTER HARRELL Attending Unavailable SUSANNE PAZ Attending Unavailable KIM FATIMA Attending Unavailable LOU MCCLAIN Referring Unavailable Brett Paniagua MD Primary Care Provider [phone] Philippe Wise MD Attending Provider Philippe Wise Attending Unavailable Philippe Wise Admitting Unavailable Brett Paniagua Primary Care Unavailable Allergies Allergy Classification Reported Allergen(s) Allergy Type Date of Onset Reaction(s) Facility (20 sources) Codeine; Translations: [CODEINE] Drug Allergy 9 GI Upset, Other: See Comments, GI intolerance [facility] (17 sources) Meperidine; Translations: [MEPERIDINE] Drug Allergy 1 Unknown, Vomiting, Vomiting (disorder) Hydrobolt Other (1 source) Codeine Drug Allergy [facility] Repository (2 sources) Meperidine; Translations: [Demerol] Drug Allergy [facility] Repository (1 source) Codeine Drug Allergy 5 [facility] Repository (1 source) Meperidine Drug Allergy 5 [facility] Repository Medications Current Medications Medication Drug Class(es) [...] Start: 03-14-2024 take 1 capsule by mo [facility] twice daily CeleBREX 100 mg Cap 100 [...] Status: Ordered take 1 capsule by mo [facility] once daily, then take 1 capsule by [...] Daily 05/05/2024 Discontinued (Ineffective) 84 hr estradiol 0.82397 mg/hr transdermal system (10 sources) Estrogen Start: [...] Propionate (Flon ase Allergy Relief) 50 mcg/actuation [place],Suspension Discontinued 1 SPRAY INTRANASAL Daily November 02, [...] current use of drug therapy; Translations: [Other bed bug exterminator (current) drug therapy] 01-18-2024 Episodic Other aftercare (1 source) Other bed bug exterminator (current) drug therapy; Translations: [Encounter for long-term [...] By: Daryn Diaz on 07-21-2024 Study report [facility] [place] [address] [place] [address] XRay Report Signed Patient: Essie Steele MR#: [id number] : 1965 Acct:[id number] Age/Sex: 59 / F ADM Date: 5 Loc: XD Room: Type: [facility] Attending Dr: Philippe Wise MD Copies to: [...] Alek Diaz MD 07/21/241749 Signed By: 07/21/241750 [facility] Work Phone: XR KUBon 07-21-2024 XR KUB [facility] [place] [address] [place] [address] XRay Report Signed Patient: Essie Steele MR#: [id number] : 1965 Acct:[id number] Age/Sex: 59 / F ADM Date: 07/21/24 Loc: XD Room: Type: [facility] Attending Dr: Philippe Wise MD Copies to: [...] MD 07/21/241749 Signed By: 07/21/241750 Normal [facility] Office Visiton 06-24-2024 Follow-up visit [id number] Essie Steele 1965 F Date Provider Department Center 06/24/2024 [id number] FATIMA ASHWIN [facility] Family History Problem Relation Age of Onset COPD Mother Cancer Father Heart attack Mother's Brother Hypertension Maternal Grandmother Family Status - Relation Status Age at Mother Father Sister Alive Mother's Brother Maternal Grandmother Level of Service:69047 CO OFFICE/OUTPATIENT ESTABLISHED MOD MDM 30 MIN Reason for Visit and Comments: 6 month follow up [Other] Hypertension [756402] Atrial Fibrillation [80] Normal [facility] XR Foot - left 3 [facility] Result: 09-24-2023: Left foot x-rays, weightbearing AP/MO/LAT views, obtained today shows: 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 Narrowed 2nd, 3rd intermetatarsal spaces. Lateral view shows high medial longitudinal arch with increased calcaneal inclination angle, 1st metatarsal is elevated. 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 Lateral shows good medial longitudinal arch, slightly elevated with 1st metatarsal elevation though parallel with the 2nd. Area of heel pain shows no pathology small retrocalcaneal spur noted. Os peroneum noted. [facility] [employer] [facility] [employer] [facility] Study observation (narrative) [facility] [employer] BD DXA - AXIAL SKELETONon BD DXA [...] years, Gender: Female SCANNER INFORMATION: DXA Model: [employer] (S/N: [id number]) Date Scanned: 01/18/2024 9:08 AM CLINICAL HISTORY: [...] had a previous bone density in the [facility] or the previous bone density was performed on a different DXA machine (new, updated model or different location) within the [facility]. VERTEBRAL FRACTURE ASSESSMENT Not performed. [...] FOR MORE INFORMATION ABOUT DIAGNOSIS AND TREATMENT: [facility] Center for Osteoporosis and Metabolic Bone Disease:? www.ccf.org/arthritis /osteo National Osteoporosis Foundation:? www.nof.org International Society of Clinical Densitometry www.iscd.org [employer] Machine: [id number] Transcribe Date/Time: Jan 18 2024 9:10A Dictated by : ALEC ARCE MD This examination was interpreted and the report reviewed and electronically signed by: ALEC ARCE MD on Jan 18 2024 9:59PM EST [id number] N -0.1 Normal [facility] BLOOD TB SCREENon 01-18-2024 M. tuberculosis tuberculin stim IFN-g Ql (Bld) Negative Normal [facility] Comment on above: Order Comment: Speci men Type: BLOOD SPECIMEN Ordering Facility: [facility] Address: [address] [place] [address] Performed By: #### I NFTBP #### [facility] CLIA [id number] [address] [place] [address] [place] MITOGEN MINUS NIL >9.97 Normal >=0.50 [facility] Comment on above: Order Comment: Speci men Type: BLOOD SPECIMEN Ordering Facility: [facility] Address: [address] [place] [address] Performed By: #### I NFTBP #### [facility] CLIA [id number] [address] [place] [address] [place] TB GAMMA INTERPRETATION Infection with M. tuberculosis complex is unlikely. If latent tuberculosis infection is highly suspected, a negative result does not rule out the infection. Specimens from immunocompromised patients and those <5 years of age may show false negative results. In case of a contact investigation, please repeat 8-12 weeks after a known exposure. Normal [facility] Comment on above: Order Comment: Lowelli wilfredo Type: BLOOD SPECIMEN Ordering Facility: [facility] Address: [address] [place] [address] Performed By: #### I NFTBP #### [facility] CLIA [id number] [address] [place] [address] STATES OF [facility] TB NIL 0.03 IU/mL Normal <=8.00 [facility] Comment on above: Order Comment: Fernando villalobos Type: BLOOD SPECIMEN Ordering Facility: [facility] Address: [address] [place] [address] Performed By: #### I NFTBP #### [facility] CLIA [id number] [address] [place] [address] [place] TB1 AG MINUS NIL 0.05 IU/mL Normal <0.35 [facility] Comment on above: Order Comment: Speci men Type: BLOOD SPECIMEN Ordering Facility: [facility] Address: [address] [place] [address] Performed By: #### I NFTBP #### [facility] CLIA [id number] [address] [place] [address] [place] TB2 AG MINUS NIL 0.02 IU/mL Normal <0.35 [facility] Comment on above: Order Comment: Speci men Type: BLOOD SPECIMEN Ordering Facility: [facility] Address: [address] [place] [address] Performed By: #### I NFTBP #### [facility] CLIA [id number] [address] [place] [address] [place] C-REACTIVE PROTEINon 024 CRP [Mass/Vol] 0.7 mg/dL NINF - 0.9 mg/dL [facility] C3 COMPLEMENTon 01-18-2024 Complement C3 [Mass/Vol] 158 mg/dL 86 - 166 mg/dL [facility] C3 SerPl-mCncon 01-18-2024 Complement C3 [Mass/Vol] 158 mg/dL Normal 86-166 [facility] Comment on above: Order Comment: Speci men Type: BLOOD SPECIMEN Ordering Facility: [facility] Address: [address] [place] [address] Performed By: #### 5 1775-5, 78829-8, 93406-8, 32498-1, 50865-6, 05847-9, 70048-1, 98237-1 #### [facility] CLIA [id number] [address] [place] [address] [place] C4 COMPLEMENTon 01-18-2024 Complement C4 [Mass/Vol] 28 mg/dL 13 - 46 mg/dL [facility] C4 SerPl-mCncon 01-18-2024 Complement C4 [Mass/Vol] 28 mg/dL Normal 13-46 [facility] Comment on above: Order Comment: Speci men Type: BLOOD SPECIMEN Ordering Facility: [facility] Address: [address] [place] [address] Performed By: #### 5 1775-5, 68482-8, 11540-0, 45298-9, 15217-5, 63779-6, 64676-7, 88069-1 #### [facility] CLIA [id number] [address] [place] [address] [id number] [address] [place] CBC W Auto Differential pane l (Bld)on 01-18-2024 Basophils (Bld) [#/Vol] 0.08 10*3/uL [facility] Basophils/100 WBC (Bld) 1.0 % [facility] Differential cell count method Nom (Bld) Auto [facility] Eosinophils (Bld) [#/Vol] 0.32 10*3/uL [facility] Eosinophils/100 WBC (Bld) 4.0 % [facility] Erythrocyte distribution width (RBC) [Ratio] 14.2 % 11.5 - 15.0 % [facility] Hematocrit (Bld) [Volume fraction] 40.8 % 36.0 - 46.0 % [facility] Hemoglobin (Bld) [Mass/Vol] 12.8 g/dL 11.5 - 15.5 g/dL [facility] Immature granulocytes (Bld) [#/Vol] 0.06 10*3/uL [facility] Immature granulocytes/100 WBC (Bld) 0.8 % [facility] Interpretation and review of laboratory results Abnormal [facility] Lymphocytes (Bld) [#/Vol] 1.99 10*3/uL [facility] Lymphocytes/100 WBC (Bld) 25.1 % [facility] MCH (RBC) [Entitic mass] 24.7 pg Low 26.0 - 34.0 pg [facility] MCHC (RBC) [Mass/Vol] 31.4 g/dL 30.5 - 36.0 g/dL [facility] MCV (RBC) [Entitic vol] 78.6 fL Low 80.0 - 100.0 fL [facility] Monocytes (Bld) [#/Vol] 0.54 10*3/uL [facility] Monocytes/100 WBC (Bld) 6.8 % [facility] Neutrophils (Bld) [#/Vol] 4.93 10*3/uL [facility] Neutrophils/100 WBC (Bld) 62.3 % [facility] Nucleated RBC (Bld) [#/Vol] NINF [facility] Nucleated RBC/100 WBC (Bld) [Ratio] 0.0 % /100 WBC [facility] Platelet mean volume (Bld) [Entitic vol] 10.2 fL 9.0 - 12.7 fL [facility] Platelets (Bld) [#/Vol] 292 10*3/uL [facility] RBC (Bld) [#/Vol] 5.19 10*6/uL 3.90 - 5.2 0 m/uL [facility] WBC (Bld) [#/Vol] 7.92 10*3/uL [facility] Basophils (Bld) [#/Vol] 0.08 10*3/uL Normal <0.11 [facility] Comment on above: Order Comment: Speci men Type: BLOOD SPECIMEN Ordering Facility: [facility] Address: [address] [place] [address] Performed By: #### 5 1775-5, 46982-1, 76593-6, 71073-9, 23970-2, 31487-6, 46473-4, 87451-4 #### [facility] CLIA [id number] [address] [place] [address] [place] Basophils/100 WBC (Bld) 1.0 % Normal [facility] Comment on above: Order Comment: Speci men Type: BLOOD SPECIMEN Ordering Facility: [facility] Address: [address] [place] [address] Performed By: #### 5 1775-5, 17196-3, 86742-3, 83564-9, 90731-0, 82912-3, 84361-1, 72634-7 #### [facility] CLIA [id number] [address] [place] [address] [place] Differential cell count method Nom (Bld) Auto Normal [facility] Comment on above: Order Comment: Speci men Type: BLOOD SPECIMEN Ordering Facility: [facility] Address: [address] [place] [address] Performed By: #### 5 1775-5, 68066-4, 69877-3, 76635-8, 27764-1, 93570-2, 37786-5, 43291-8 #### [facility] CLIA [id number] [address] [place] [address] [place] Eosinophils (Bld) [#/Vol] 0.32 10*3/uL Normal <0.46 [facility] Comment on above: Order Comment: Speci men Type: BLOOD SPECIMEN Ordering Facility: [facility] Address: [address] [place] [address] Performed By: #### 5 1774-5, 62656-7, 32469-0, 12595-0, 34531-7, 49371-7, 93149-8, 94412-9 #### [facility] CLIA [id number] [address] [place] [address] [place] Eosinophils/100 WBC (Bld) 4.0 % Normal [facility] Comment on above: Order Comment: Speci men Type: BLOOD SPECIMEN Ordering Facility: [facility] Address: [address] [place] [address] Performed By: #### 5 1774-5, 84999-6, 46300-4, 65967-9, 22569-6, 17811-7, 49629-8, 23898-5 #### [facility] CLIA [id number] [address] [place] [address] [place] Erythrocyte distribution width (RBC) [Ratio] 14.2 % Normal 11.5-15.0 [facility] Comment on above: Order Comment: Speci men Type: BLOOD SPECIMEN Ordering Facility: [facility] Address: [address] [place] [address] Performed By: #### 5 5-5, 07486-1, 85835-8, 38759-4, 50494-0, 49035-0, 92383-0, 17580-4 #### [facility] CLIA [id number] [address] [place] [address] [place] Hematocrit (Bld) [Volume fraction] 40.8 % Normal 36.0-46.0 [facility] Comment on above: Order Comment: Speci men Type: BLOOD SPECIMEN Ordering Facility: [facility] Address: [address] [place] [address] Performed By: #### 5 1775-5, 64919-3, 10603-6, 33447-9, 44987-6, 30262-2, 20285-9, 30842-4 #### [facility] CLIA [id number] [address] [place] [address] [place] Hemoglobin (Bld) [Mass/Vol] 12.8 g/dL Normal 11.5-15.5 [facility] Comment on above: Order Comment: Speci men Type: BLOOD SPECIMEN Ordering Facility: [facility] Address: [address] [place] [address] Performed By: #### 5 5-5, 93030-0, 61760-7, 10024-7, 23969-0, 50670-4, 31434-3, 64260-2 #### [facility] CLIA [id number] [address] [place] [address] [place] Immature granulocytes (Bld) [#/Vol] 0.06 10*3/uL Normal <0.10 [facility] Comment on above: Order Comment: Speci men Type: BLOOD SPECIMEN Ordering Facility: [facility] Address: [address] [place] [address] Performed By: #### 5 1775-5, 13658-8, 95321-0, 80944-1, 02602-4, 48201-1, 96223-8, 73754-6 #### [facility] CLIA [id number] [address] [place], [place] [address] [place] Immature granulocytes/100 WBC (Bld) 0.8 % Normal [facility] Comment on above: Order Comment: Speci men Type: BLOOD SPECIMEN Ordering Facility: [facility] Address: [address] [place] [address] Performed By: #### 5 1775-5, 83984-2, 51861-3, 33844-0, 06589-1, 46449-6, 43999-2, 65621-3 #### [facility] CLIA [id number] [address] [place] [address] [place] Lymphocytes (Bld) [#/Vol] 1.99 10*3/uL Normal 1.00-4.00 [facility] Comment on above: Order Comment: Speci men Type: BLOOD SPECIMEN Ordering Facility: [facility] Address: [address] [place] [address] Performed By: #### 5 1775-5, 93610-2, 64753-0, 68349-6, 45314-2, 99121-5, 47859-2, 57494-8 #### [facility] CLIA [id number] [address] [place] [address] [place] Lymphocytes/100 WBC (Bld) 25.1 % Normal [facility] Comment on above: Order Comment: Speci men Type: BLOOD SPECIMEN Ordering Facility: [facility] Address: [address] [place] [address] Performed By: #### 5 1775-5, 57308-1, 04329-9, 24976-3, 76807-4, 29306-9, 07312-5, 67428-4 #### [facility] CLIA [id number] [address] [place] [address] [place] MCH (RBC) [Entitic mass] 24.7 pg Low 26.0-34.0 [facility] Comment on above: Order Comment: Speci men Type: BLOOD SPECIMEN Ordering Facility: [facility] Address: [address] [place] [address] Performed By: #### 5 1775-5, 89460-8, 55095-4, 80564-7, 31585-8, 91095-6, 29801-3, 65557-5 #### [facility] CLIA [id number] [address] [place] [address] [place] MCHC (RBC) [Mass/Vol] 31.4 g/dL Normal 30.5-36.0 [facility] Comment on above: Order Comment: Speci men Type: BLOOD SPECIMEN Ordering Facility: [facility] Address: [address] [place] [address] Performed By: #### 5 5-5, 83553-7, 59010-5, 00490-2, 75719-4, 76022-4, 72839-8, 52606-8 #### [facility] CLIA [id number] [address] [place] [address] [place] MCV (RBC) [Entitic vol] 78.6 fL Low 80.0-100.0 [facility] Comment on above: Order Comment: Speci men Type: BLOOD SPECIMEN Ordering Facility: [facility] Address: [address] [place] [address] Performed By: #### 5 5-5, 35163-3, 87972-2, 35585-6, 22675-3, 38582-1, 81358-0, 55117-8 #### [facility] CLIA [id number] [address] [place] [address] [place] Monocytes (Bld) [#/Vol] 0.54 10*3/uL Normal <0.87 [facility] Comment on above: Order Comment: Speci men Type: BLOOD SPECIMEN Ordering Facility: [facility] Address: [address] [place] [address] Performed By: #### 5 1775-5, 75926-5, 29278-4, 33727-4, 81779-5, 72610-1, 14440-2, 74024-6 #### [facility] CLIA [id number] [address] [place] [address] [place] Monocytes/100 WBC (Bld) 6.8 % Normal [facility] Comment on above: Order Comment: Speci men Type: BLOOD SPECIMEN Ordering Facility: [facility] Address: [address] [place] [address] Performed By: #### 5 1775-5, 80607-3, 06182-2, 19763-7, 42246-7, 89215-0, 15116-6, 68680-3 #### [facility] CLIA [id number] [address] [place] [address] [place] Neutrophils (Bld) [#/Vol] 4.93 10*3/uL Normal 1.45-7.50 [facility] Comment on above: Order Comment: Speci men Type: BLOOD SPECIMEN Ordering Facility: [facility] Address: [address] [place] [address] Performed By: #### 5 1775-5, 61517-9, 76567-8, 43475-5, 95009-8, 31093-1, 66651-5, 17624-1 #### [facility] CLIA [id number] [address] [place] [address] [place] Neutrophils/100 WBC (Bld) 62.3 % Normal [facility] Comment on above: Order Comment: Speci men Type: BLOOD SPECIMEN Ordering Facility: [facility] Address: [address] [place] [address] Performed By: #### 5 1775-5, 61510-7, 89354-6, 41386-4, 74603-8, 25673-2, 42314-6, 81886-2 #### [facility] CLIA [id number] [address] [place] [address] [place] Nucleated RBC (Bld) [#/Vol] 10*3/uL Normal <0.01 [facility] Comment on above: Order Comment: Speci men Type: BLOOD SPECIMEN Ordering Facility: [facility] Address: [address] [place] [address] Performed By: #### 5 5-5, 50560-3, 37223-0, 61658-0, 06107-7, 98274-0, 34842-6, 21144-5 #### [facility] CLIA [id number] [address] [place] [address] [place] Nucleated RBC/100 WBC (Bld) [Ratio] 0.0 /100 WBC Normal [facility] Comment on above: Order Comment: Speci men Type: BLOOD SPECIMEN Ordering Facility: [facility] Address: [address] [place] [address] Performed By: #### 5 1774-5, 82314-6, 90248-9, 14421-5, 48587-5, 19905-6, 81575-4, 76542-6 #### [facility] CLIA [id number] [address] [place] [address] [place] Platelet mean volume (Bld) [Entitic vol] 10.2 fL Normal 9.0-12.7 [facility] Comment on above: Order Comment: Speci men Type: BLOOD SPECIMEN Ordering Facility: [facility] Address: [address] [place] [address] Performed By: #### 5 1774-5, 86913-7, 36563-7, 62758-9, 36503-7, 13424-1, 23787-1, 46373-7 #### [facility] CLIA [id number] [address] [place] [address] [place] Platelets (Bld) [#/Vol] 292 10*3/uL Normal 150-400 [facility] Comment on above: Order Comment: Speci men Type: BLOOD SPECIMEN Ordering Facility: [facility] Address: [address] [place] [address] Performed By: #### 5 1774-5, 77509-0, 08324-5, 66091-7, 80051-4, 79797-9, 74571-0, 05026-0 #### [facility] CLIA [id number] [address] [place] [address] [place] RBC (Bld) [#/Vol] 5.19 10*6/uL Normal 3.90-5.20 [facility] Comment on above: Order Comment: Speci men Type: BLOOD SPECIMEN Ordering Facility: [facility] Address: [address] [place] [address] Performed By: #### 5 1775-5, 49349-0, 43339-1, 18980-6, 83095-0, 10503-0, 89811-0, 24775-0 #### [facility] CLIA [id number] [address] [place] [address] [place] WBC (Bld) [#/Vol] 7.92 10*3/uL Normal 3.70-11.00 [facility] Comment on above: Order Comment: Speci men Type: BLOOD SPECIMEN Ordering Facility: [facility] Address: [address] [place] [address] Performed By: #### 5 1775-5, 66856-7, 43481-7, 73701-0, 79101-2, 45321-7, 65511-3, 89718-9 #### [facility] CLIA [id number] [address] [place] [address] [place] CNOVon 01-18-2024 CNOV Office Visit (RHEUMN ) ESSIE STEELE ([id number]) 1965 F Date Time Provider Department 01/18/24 10:00 AM RENNY BARON During your visit today, we recorded the following information about you: Temperature Pulse Blood pressure Weight 97.2 degrees 68/minute 153/100 109.2 kg Height 1.689 m Renny Baron MD 01/18/2024 6:39 PM Signed Rheumatology CONSULTATION Date of Service: 01/18/2024 Patient: Essie Steele Primary Care Physician: Brett Paniagua ([place], [place]) Last Rheumatology visit: None at [facility] Referring Provider: Kristy Evangelista [address] [facility] [address] Essie Steele is here today at request of Dr. Evangelista specifically for consultation of my opinion in regards to the chief complaint listed below. Correspondence will be shared today via the [facility] electronic health record or through regular mail, [...] ) Review (more content not included)... Normal [facility] CRP SerPl-mCncon 01-18-2024 CRP [Mass/Vol] 0.7 mg/dL Normal <0.9 [facility] Comment on above: Order Comment: Fernando villalobos Type: BLOOD SPECIMEN Ordering Facility: [facility] Address: [address] [place] [address] Performed By: #### 5 1775-5, 95318-4, 72073-4, 53368-7, 16265-1, 17765-2, 50064-3, 29720-4 #### [facility] CLIA [id number] [address] [place] [address] [place] Centromere Ab IF Ql (S)on Centromere Ab Qn (S) <0.2 Normal <1.0 [facility] Comment on above: Order Comment: Fernando villalobos Type: BLOOD SPECIMEN Ordering Facility: [facility] Address: [address] [place] [address] Result Comment: Anti -centromere antibody is used as in aid in diagnosis of systemic sclerosis. Clinical correlation is required. Test Methodology: Multiplex flow immunoassay. Performed By: #### 5 1775-5, 00048-4, 25405-9, 54122-1, 82860-5, 50978-3, 74812-7, 17296-6 #### [facility] CLIA [id number] [address] [place] [address] [place] CENTROMERE AB QUAL Negative Normal Negative [facility] Comment on above: Order Comment: Fernando villalobos Type: BLOOD SPECIMEN Ordering Facility: [facility] Address: [address] [place] [address] Performed By: #### 5 1775-5, 58652-0, 22132-8, 42595-4, 96320-1, 74453-2, 25617-3, 06540-3 #### [facility] CLIA [id number] [address] [place] [address] [place] Chromatin Ab Qnon 01-18-2024 CHROMATIN AB QUAL Negative Normal Negative [facility] Comment on above: Order Comment: Speci men Type: BLOOD SPECIMEN Ordering Facility: [facility] Address: [address] [place] [address] Performed By: #### 5 1775-5, 75074-1, 71363-0, 20871-2, 99274-1, 15645-8, 98574-2, 64719-0 #### [facility] CLIA [id number] [address] [place] [address] [place] Chromatin Ab SerPl-aCncon Chromatin Ab Qn <0.2 Normal <1.0 [facility] Comment on above: Order Comment: Speci men Type: BLOOD SPECIMEN Ordering Facility: [facility] Address: [address] [place] [address] Result Comment: Test Methodology: Multiplex flow immunoassay. Performed By: #### 5 1775-5, 16386-3, 00819-6, 25249-5, 27048-9, 90109-9, 17111-8, 59796-1 #### [facility] CLIA [id number] [address] [place] [address] [place] Comprehensive metabolic 2000 panelon 01-18-2024 Albumin [Mass/Vol] 4.4 g/dL 3.9 - 4.9 g/dL [facility] ALP [Catalytic activity/Vol] 148 U/L High 34 - 123 U/L [facility] ALT [Catalytic activity/Vol] 20 U/L 7 - 38 U/L [facility] Anion gap [Moles/Vol] 12 mmol/L 8 - 15 mmol/L [facility] AST [Catalytic activity/Vol] 25 U/L 13 - 35 U/L [facility] Bilirubin [Mass/Vol] 0.4 mg/dL 0.2 - 1 .3 mg/dL [facility] Calcium [Mass/Vol] 9.2 mg/dL 8.5 - 10. 2 mg/dL [facility] Chloride [Moles/Vol] 102 mmol/L 98 - 10 7 mmol/L [facility] CO2 [Moles/Vol] 26 mmol/L 22 - 30 mmol/L [facility] Creatinine [Mass/Vol] 0.59 mg/dL 0.58 - 0.96 mg/dL [facility] GFR/1.73 sq M.predicted among non-blacks MDRD (S/P/Bld) [Vol rate/Area] 105 mL/min/{1.73_m2} - PINF [facility] Comment on above: Estimated Glomerular Filtration [...] [Mass/Vol] 91 mg/dL 74 - 99 mg/dL [facility] Comment on above: The [place] Diabete s Association (ADA) provides guidance for [...] Standards of Medical Care in Diabetes 2016, [place] Diabetes Association. Diabetes Care. 2016.39(Suppl 1). Interpretation and review of laboratory results Abnormal [facility] Potassium [Moles/Vol] 3.7 mmol/L 3.7 - 5.1 mmol/L [facility] Protein [Mass/Vol] 7.3 g/dL 6.3 - 8.0 g/dL [facility] Sodium [Moles/Vol] 140 mmol/L 136 - 144 mmol/L [facility] Urea nitrogen [Mass/Vol] 12 mg/dL 7 - 21 mg/dL [facility] Albumin [Mass/Vol] 4.4 g/dL Normal 3.9-4.9 [facility] Comment on above: Order Comment: Speci men Type: BLOOD SPECIMEN Ordering Facility: [facility] Address: [address] [place] [address] Performed By: #### 5 1775-5, 12145-7, 89220-4, 46687-7, 87492-5, 23891-4, 00120-0, 96726-4 #### [facility] CLIA [id number] [address] [place] [address] [place] ALP [Catalytic activity/Vol] 148 U/L High 34-123 [facility] Comment on above: Order Comment: Speci men Type: BLOOD SPECIMEN Ordering Facility: [facility] Address: [address] [place] [address] Performed By: #### 5 1775-5, 61161-4, 42010-6, 74200-3, 18004-7, 17979-7, 80509-2, 29538-7 #### [facility] CLIA [id number] [address] [place] [address] [place] ALT [Catalytic activity/Vol] 20 U/L Normal 7-38 [facility] Comment on above: Order Comment: Speci men Type: BLOOD SPECIMEN Ordering Facility: [facility] Address: [address] [place] [address] Performed By: #### 5 1775-5, 69409-1, 97072-2, 29496-6, 44927-7, 90831-0, 54978-6, 34769-7 #### [facility] CLIA [id number] [address] [place] [address] [place] Anion gap [Moles/Vol] 12 mmol/L Normal 8-15 [facility] Comment on above: Order Comment: Speci men Type: BLOOD SPECIMEN Ordering Facility: [facility] Address: [address] [place] [address] Performed By: #### 5 1775-5, 68646-8, 33558-0, 27289-2, 35521-8, 16842-4, 79510-6, 23611-4 #### [facility] CLIA [id number] [address] [place] [address] [place] AST [Catalytic activity/Vol] 25 U/L Normal 13-35 [facility] Comment on above: Order Comment: Speci men Type: BLOOD SPECIMEN Ordering Facility: [facility] Address: [address] [place] [address] Performed By: #### 5 1775-5, 17337-1, 26700-6, 29068-8, 83852-2, 42551-4, 56416-8, 46227-4 #### [facility] CLIA [id number] [address] [place] [address] [place] Bilirubin [Mass/Vol] 0.4 mg/dL Normal 0.2-1.3 [facility] Comment on above: Order Comment: Speci men Type: BLOOD SPECIMEN Ordering Facility: [facility] Address: [address] [place] [address] Performed By: #### 5 1775-5, 53678-1, 99703-8, 97608-6, 08976-3, 40968-6, 35921-1, 94567-2 #### [facility] CLIA [id number] [address] [place] [address] [place] Calcium [Mass/Vol] 9.2 mg/dL Normal 8.5-10.2 [facility] Comment on above: Order Comment: Speci men Type: BLOOD SPECIMEN Ordering Facility: [facility] Address: [address] [place] [address] Performed By: #### 5 1775-5, 36704-1, 40776-3, 96193-8, 07569-8, 61108-8, 64528-5, 49819-6 #### [facility] CLIA [id number] [address] [place] [address] [place] Chloride [Moles/Vol] 102 mmol/L Normal 98-107 [facility] Comment on above: Order Comment: Speci men Type: BLOOD SPECIMEN Ordering Facility: [facility] Address: [address] [place] [address] Performed By: #### 5 5-5, 05877-9, 81990-0, 34028-4, 74651-4, 97734-0, 36629-9, 03374-1 #### [facility] CLIA [id number] [address] [place] [address] [place] CO2 [Moles/Vol] 26 mmol/L Normal 22-30 [facility] Comment on above: Order Comment: Speci men Type: BLOOD SPECIMEN Ordering Facility: [facility] Address: [address] [place] [address] Performed By: #### 5 5-5, 93333-5, 53686-3, 02026-4, 45637-9, 39622-9, 49894-4, 80319-9 #### [facility] CLIA [id number] [address] [place] [address] [place] Creatinine [Mass/Vol] 0.59 mg/dL Normal 0.58-0.96 [facility] Comment on above: Order Comment: Speci men Type: BLOOD SPECIMEN Ordering Facility: [facility] Address: [address] [place] [address] Performed By: #### 5 1775-5, 60404-0, 30403-2, 11886-5, 58542-8, 33670-6, 21892-7, 45278-8 #### [facility] CLIA [id number] [address] [place] [address] [place] Creatinine and Glomerular filtration rate.predicted panel (S/P/Bld) 105 mL/min/1.73m??? Normal >=60 [facility] Comment on above: Order Comment: Fernando villalobos Type: BLOOD SPECIMEN Ordering Facility: [facility] Address: [address] [place] [address] Result Comment: Oanh mated Glomerular Filtration Rate [...] actual GFR. Performed By: #### 5 1775-5, 42599-4, 62054-3, 31885-3, 66219-5, 03436-9, 62626-6, 21049-9 #### [facility] CLIA [id number] [address] [place], [place] [address] [facility] Glucose [Mass/Vol] 91 mg/dL Normal 74-99 [facility] Comment on above: Order Comment: Fernando villalobos Type: BLOOD SPECIMEN Ordering Facility: [facility] Address: [address] [place] [address] Result Comment: The [place] Diabetes Association (ADA) provides guidance for cutoff [...] Standards of Medical Care in Diabetes 2016, [place] [employer]. Diabetes Care. 2016.39(Suppl 1). Performed By: #### 5 1775-5, 10309-8, 25601-5, 32710-7, 05132-0, 60063-5, 85937-9, 37193-9 #### [facility] CLIA [id number] [address] [place] [address] [place] Potassium [Moles/Vol] 3.7 mmol/L Normal 3.7-5.1 [facility] Comment on above: Order Comment: Speci men Type: BLOOD SPECIMEN Ordering Facility: [facility] Address: [address] [place] [address] Performed By: #### 5 1775-5, 46762-7, 84011-9, 24735-5, 73550-2, 17466-0, 41279-1, 09747-9 #### [facility] CLIA [id number] [address] [place] [address] [place] Protein [Mass/Vol] 7.3 g/dL Normal 6.3-8.0 [facility] Comment on above: Order Comment: Speci men Type: BLOOD SPECIMEN Ordering Facility: [facility] Address: [address] [place] [address] Performed By: #### 5 1775-5, 35651-3, 60118-5, 00360-1, 04469-2, 14296-2, 12947-9, 34887-3 #### [facility] CLIA [id number] [address] [place] [address] [place] Sodium [Moles/Vol] 140 mmol/L Normal 136-144 [facility] Comment on above: Order Comment: Speci men Type: BLOOD SPECIMEN Ordering Facility: [facility] Address: [address] [place] [address] Performed By: #### 5 1775-5, 39988-7, 05383-3, 59091-6, 42700-3, 14988-4, 91938-5, 68795-3 #### [facility] CLIA [id number] [address] [place], [place] [address] [place] Urea nitrogen [Mass/Vol] 12 mg/dL Normal 7-21 [facility] Comment on above: Order Comment: Speci men Type: BLOOD SPECIMEN Ordering Facility: [facility] Address: [address] [place] [address] Performed By: #### 5 1775-5, 60344-9, 99941-7, 82948-7, 10975-2, 84266-2, 81610-7, 82585-1 #### [facility] CLIA [id number] [address] [place] [address] [place] Cyclic citrullinated peptide IgG Qnon 01-18-2024 CCP ANTIBODY IGG QUALITATIVE Negative Normal Negative [facility] Comment on above: Order Comment: Speci men Type: BLOOD SPECIMEN Ordering Facility: [facility] Address: [address] [place] [address] Performed By: #### 5 1775-5, 31718-8, 55544-4, 71758-9, 52179-5, 62555-8, 99430-2, 78362-4 #### [facility] CLIA [id number] [address] [place] [address] [place] DNA double strand Ab IA Qn ( S)on 01-18-2024 DNA ANTIBODY 29 IU/mL Normal <=200 [facility] Comment on above: Order Comment: Speci men Type: BLOOD SPECIMEN Ordering Facility: [facility] Address: [address] [place] [address] Result Comment: Nega tive: <200 IU/mL Equivocal: 201-300 IU/mL Moderate Positive: 301-800 IU/mL Strong Positive: >801 IU/mL Performed By: #### 5 1775-5, 23652-4, 38436-7, 41203-9, 93079-9, 61395-0, 38075-4, 79527-4 #### [facility] CLIA [id number] [address] [place] [address] [place] DNA ANTIBODY QUALITATIVE INTERPRETATION Negative Normal Negative [facility] Comment on above: Order Comment: Speci men Type: BLOOD SPECIMEN Ordering Facility: [facility] Address: [address] [place] [address] Performed By: #### 5 1775-5, 62974-5, 77751-0, 28024-2, 04259-6, 34416-5, 90916-6, 86145-9 #### [facility] CLIA [id number] [address] [place] [address] [place] [address] [place] DXA Skeletal system.axial Vi ews for bone densityOrdered By: Ccf Provider on 01-18-2024 LOWEST T-SCORE -0.1 [facility] DXA Skeletal system.axial Vi ews for [...] FOR MORE INFORMATION ABOUT DIAGNOSIS AND TREATMENT: [facility]osis and Metabolic Bone Disease:? [email or web address] /osteo National Osteoporosis Foundation:? www.nof.org International Society of Clinical Densitometry www.iscd.org Fe[employer] Machine: [id number] Transcribe Date/Time: Jan 18 2024 9:10A Dictated by : ALEC ARCE MD This examination was interpreted and the report reviewed and electronically signed by: ALEC ARCE MD on Jan 18 2024 9:59PM [facility] DIVISION OF RADIOLOGY * * *Final [...] Gender: Female SCANNER INFORMATION: DXA Model: A21 [employer] (S/N: [id number]) Date Scanned: 01/18/2024 9:08 AM CLINICAL HISTORY: [...] had a previous bone density in the [facility] or the previous bone density was performed on a different DXA machine (new, updated model or different location) within the [facility]. VERTEBRAL FRACTURE ASSESSMENT Not performed. TRABECULAR BONE ASSESSMENT TBS not performed: BMI outside recommended range for calculation of TBS. DIVISION OF RADIOLOGY Provider, [facility] - 01/18/2024 * * *Final Report* * * DATE OF EXAM: Jan 18 2024 9:08AM [facility] - BD DXA - AXIAL SKELETON / PROCEDURE REASON: Symptomatic menopausal or female climacteric states * * * * Physician Interpretation * * * * EXAMINATION: DXA BONE DENSITOMETRY BD DXA - AXIAL SKELETON PATIENT DEMOGRAPHICS: Age: 59 years, Gender: Female SCANNER INFORMATION: DXA Model: A21 [employer] (S/N: [id number]) Date Scanned: 01/18/2024 9:08 AM CLINICAL HISTORY: [...] had a previous bone density in the [facility] or the previous bone density was performed on a different DXA machine (new, updated model or different location) within the [facility]. VERTEBRAL FRACTURE ASSESSMENT Not performed. [...] FOR MORE INFORMATION ABOUT DIAGNOSIS AND TREATMENT: [facility] for Osteoporosis and Metabolic Bone Disease:? [email or web address]/arthritis /osteo National Osteoporosis Foundation:? www.nof.org International Society of Clinical Densitometry www.iscd.org [employer] Machine: [id number] Transcribe Date/Time: Jan 18 2024 9:10A Dictated by : ALEC ARCE MD This examination was interpreted and the report reviewed and electronically signed by: ALEC ARCE MD on Jan 18 2024 9:59PM EST [facility] Radiology Study observation (narrative) [facility] GAYATRI Jo1 Ab Ser-aCncon 2023 Cyndi-1 extractable nuclear Ab Qn (S) <0.2 Normal <1.0 [facility] Comment on above: Order Comment: Speci men Type: BLOOD SPECIMEN Ordering Facility: [facility] Address: [address] [place], [place] [address] [id number] Performed By: #### 5 1775-5, 23993-8, 15665-9, 26075-5, 31916-0, 12458-1, 00924-6, 49243-0 #### [facility] CLIA [id number] [address] [place] [address] [place] GAYATRI FABRIC SEPARATOR OPERATOR Ab Ser-aCncon 2023 Ribonucleoprotein extractable nuclear Ab Qn (S) <0.2 Normal <1.0 [facility] Comment on above: Order Comment: Speci men Type: BLOOD SPECIMEN Ordering Facility: [facility] Address: [address] [place] [address] Performed By: #### 5 5-5, 80943-3, 07541-9, 69465-4, 38913-7, 36089-3, 67652-9, 60283-0 #### [facility] CLIA [id number] [address] [place] [address] [place] GAYATRI SM IgG Ser-aCncon 2023 [place]ner extractable nuclear IgG Qn (S) <0.2 Normal <1.0 [facility] Comment on above: Order Comment: Speci men Type: BLOOD SPECIMEN Ordering Facility: [facility] Address: [address] [place] [address] Performed By: #### 5 5-5, 84843-9, 16225-2, 34055-4, 62051-8, 20962-6, 91292-0, 53443-3 #### [facility] CLIA [id number] [address] [place] [address] [place] GAYATRI SS-A Ab Ser-aCncon 01-17 Sjogrens syndrome-A extractable nuclear Ab Qn (S) <0.2 Normal <1.0 [facility] Comment on above: Order Comment: Speci men Type: BLOOD SPECIMEN Ordering Facility: [facility] Address: [address] [place] [address] Result Comment: Test Methodology: Multiplex flow immunoassay. Performed By: #### 5 1775-5, 82455-1, 38140-2, 20611-2, 18227-6, 84308-4, 07964-7, 62819-5 #### [facility] CLIA [id number] [address] [place] [address] [place] GAYATRI SS-B Ab Ser-aCncon 01-17 Sjogrens syndrome-B extractable nuclear Ab Qn (S) <0.2 Normal <1.0 [facility] Comment on above: Order Comment: Speci men Type: BLOOD SPECIMEN Ordering Facility: [facility] Address: [address] [place] [address] Result Comment: Anti -SSB (anti-La) antibody is used as an aid in diagnosis of a variety of systemic autoimmune diseases, especially for Sjogren's syndrome and systemic lupus erythematosus. Clinical correlation is required. Test Methodology: Multiplex flow immunoassay. Performed By: #### 5 1775-5, 22168-4, 22581-3, 00515-1, 11150-7, 88396-3, 21087-0, 95084-9 #### [facility] CLIA [id number] [address] [place] [address] [place] ESR Westergren method (Bld) [Velocity]on 01-18-2024 ESR (Bld) [Velocity] 12 mm/h [facility] Interpretation and review of laboratory results Normal [facility] ESR (Bld) [Velocity] 12 mm/h Normal 0-20 [facility] Comment on above: Order Comment: Speci men Type: BLOOD SPECIMEN Ordering Facility: [facility] Address: [address] [place] [address] Performed By: #### 5 1775-5, 84295-3, 15819-4, 49435-5, 47691-3, 67357-2, 67225-6, 10358-5 #### [facility] CLIA [id number] [address] [place] [address] [place] HBV core Ab Ser Qlon 024 HBV core Ab Ql (S) Negative Normal Negative [facility] Comment on above: Order Comment: Fernando villalobos Type: BLOOD SPECIMEN Ordering Facility: [facility] Address: [address] [place] [address] Result Comment: No e vidence of current or past infection with Hepatitis B virus. Should recent infection be suspected, repeat testing may be considered 3-4 weeks after this draw. Performed By: #### 5 1775-5, 22405-3, 20431-1, 31448-3, 41709-9, 22058-1, 18271-5, 04155-6 #### [facility] CLIA [id number] [address] [place] [address] [place] HBV surface Ab Ql (S)on 12-25 HBV surface Ab Qn (S) 120.75 mIU/mL Normal [facility] Comment on above: Order Comment: Fernando villalobos Type: BLOOD SPECIMEN Ordering Facility: [facility] Address: [address] [place] [address] Result Comment: <8 m IU/mL: No serological evidence of immunity to Hepatitis B Virus. >/= 8 to <12 mIU/mL: No serological evidence of immunity to Hepatitis B Virus. >/= 12 mIU/mL: Consistent with serological evidence of immunity to Hepatitis B Virus. Performed By: #### 5 1775-5, 13658-4, 53380-0, 57632-0, 31900-5, 79051-7, 57306-1, 09906-2 #### [facility] CLIA [id number] [address] [place] [address] [place] HBV surface Ab Ser Qlon 12-25 HBV surface Ab Ql (S) Positive Normal [facility] Comment on above: Order Comment: Fernando villalobos Type: BLOOD SPECIMEN Ordering Facility: [facility] Address: [address] [place] [address] Result Comment: Cons istent with serological evidence of immunity to Hepatitis B Virus. Performed By: #### 5 1775-5, 54885-4, 62047-2, 30852-7, 92985-0, 60508-1, 40696-0, 19219-1 #### [facility] CLIA [id number] [address] [place] [address] [place] HBV surface Ag Ser Qlon 12-25 HBV surface Ag Ql (S) Negative Normal Negative [facility] Comment on above: Order Comment: Specalysa villalobos Type: BLOOD SPECIMEN Ordering Facility: [facility] Address: [address] [place] [address] Performed By: #### 5 1775-5, 09077-3, 91502-5, 14385-6, 89262-2, 86338-1, 39128-1, 47620-3 #### [facility] CLIA [id number] [address] [place] [address] [place] HCV Ab Ser Qlon 01-18-2024 HCV Ab Ql (S) Negative Normal Negative [facility] Comment on above: Order Comment: Fernando villalobos Type: BLOOD SPECIMEN Ordering Facility: [facility] Address: [address] [place] [address] Result Comment: The result suggests no evidence of active infection with Hepatitis C virus. Should recent infection be suspected, repeat testing may be considered 4-6 weeks after this draw. Performed By: #### 5 1775-5, 54525-1, 75928-6, 20903-1, 95355-3, 13126-4, 17430-3, 41717-3 #### [facility] CLIA [id number] [address] [place] [address] [place] Cyndi-1 extractable nuclear Ab Qn (S)on 01-18-2024 CYNDI 1 ANTIBODY QUAL Negative Normal Negative [facility] Comment on above: Order Comment: Fernando villalobos Type: BLOOD SPECIMEN Ordering Facility: [facility] Address: [address] [place] [address] Result Comment: Anti -CYNDI-1 antibody is used as an aid in diagnosis of polymyositis and dermatomyositis especially with pulmonary involvement. A negative result cannot rule out polymyositis or dermatomyositis. Clinical correlation is required. Test Methodology: Multiplex flow immunoassay. Performed By: #### 5 1775-5, 73634-1, 81844-7, 77457-6, 97100-0, 91337-4, 91447-4, 86906-4 #### [facility] CLIA [id number] [address] [place] [address] [place] No Panel Informationon 01-17 Interpretation and review of laboratory results Normal [facility] RHEUMATOID FACTORon 01-18-20 Rheumatoid factor Qn 12 [IU]/mL NINF [facility] Rheumatoid fact SerPl-aCncon 01-18-2024 Rheumatoid factor Qn 12 [IU]/mL Normal <16 [facility] Comment on above: Order Comment: Speci men Type: BLOOD SPECIMEN Ordering Facility: [facility] Address: [address] [place] [address] Performed By: #### 5 1775-5, 84231-5, 55201-5, 97928-8, 41044-4, 52627-4, 59426-2, 76138-3 #### [facility] CLIA [id number] [address] [place] [address] [place] Rheumatoid factor Qnon 01-17 Interpretation and review of laboratory results Normal [facility] Ribonucleoprotein extractabl e nuclear Ab Qn (S)on 01-18-2024 ANTI-FABRIC SEPARATOR OPERATOR QUAL Negative Normal Negative [facility] Comment on above: Order Comment: Speci men Type: BLOOD SPECIMEN Ordering Facility: [facility] Address: [address] [place] [address] Performed By: #### 5 1775-5, 59058-3, 70984-9, 75787-1, 40569-4, 54374-1, 38344-2, 55380-2 #### [facility] CLIA [id number] [address] [place] [address] [place] RIBOSOMAL FABRIC SEPARATOR OPERATOR QUAL Negative Normal Negative [facility] Comment on above: Order Comment: Fernando villalobos Type: BLOOD SPECIMEN Ordering Facility: [facility] Address: [address] [place] [address] Result Comment: Anti -Ribosomal RNA (Ribosomal P) antibody is used as an aid in diagnosis of systemic autoimmune diseases especially systemic lupus erythematosus and mixed connective tissue disease. Cross-reactivity with Anti-faulkner antibody is not uncommon. Clinical correlation is required. Test Methodology: Multiplex flow immunoassay. Performed By: #### 5 1775-5, 88357-0, 72315-2, 50614-3, 62648-5, 86588-2, 72677-6, 73095-3 #### [facility] CLIA [id number] [address] [place] [address] [place] SCL-70 extractable nuclear I gG IA Qn (S)on 01-18-2024 SCLERODERMA AB QUAL Negative Normal Negative [facility] Comment on above: Order Comment: Fernando villalobos Type: BLOOD SPECIMEN Ordering Facility: [facility] Address: [address] [place] [address] Performed By: #### 5 5-5, 96965-7, 28055-6, 99676-5, 31096-6, 10699-5, 51737-8, 17182-6 #### [facility] CLIA [id number] [address] [place] [address] [place] SCLERODERMA IGG AB <0.2 Normal <1.0 [facility] Comment on above: Order Comment: Fernando villalobos Type: BLOOD SPECIMEN Ordering Facility: [facility] Address: [address] [place] [address] Result Comment: Scl- 70/Scleroderma antibody test is used as an aid in diagnosis of systemic sclerosis especially the diffuse cutaneous form. A negative result cannot rule out systemic sclerosis. The final interpretation should consider clinical picture and other test results such as anti-centromere antibody. Test Methodology: Multiplex flow immunoassay. Performed By: #### 5 1775-5, 48767-7, 66932-7, 62722-6, 58924-2, 57453-1, 84126-5, 73003-2 #### [facility] CLIA [id number] [address] [place] [address] [place] Sjogrens syndrome-A extracta ble nuclear Ab Qn (S)on 01-18-2024 SSA ANTIBODY QUAL Negative Normal Negative [facility] Comment on above: Order Comment: Speci men Type: BLOOD SPECIMEN Ordering Facility: [facility] Address: [address] [place] [address] Performed By: #### 5 1775-5, 79558-8, 06054-5, 84455-2, 26368-1, 85504-1, 72409-1, 24976-2 #### [facility] CLIA [id number] [address] [place] [address] [place] Sjogrens syndrome-B extracta ble nuclear Ab Qn (S)on 01-18-2024 SSB ANTIBODY QUAL Negative Normal Negative [facility] Comment on above: Order Comment: Speci men Type: BLOOD SPECIMEN Ordering Facility: [facility] Address: [address] [place] [address] Performed By: #### 5 5-5, 63120-3, 53377-0, 77419-9, 47372-6, 11208-6, 03746-9, 88973-1 #### [facility] CLIA [id number] [address] [place] [address] [place] Faulkner extractable nuclear Ig G Qn (S)on 01-18-2024 SM ANTIBODY QUAL Negative Normal Negative [facility] Comment on above: Order Comment: Speci men Type: BLOOD SPECIMEN Ordering Facility: [facility] Address: [address] [place] [address] Result Comment: Anti -Sm (Faulkner) antibody is used as an aid in diagnosis of systemic lupus erythematosus and its presence is associated with renal disease. A negative result cannot rule out systemic lupus erythematosus. Clinical correlation is required. Test Methodology: Multiplex flow immunoassay. Performed By: #### 5 1775-5, 82890-6, 62705-2, 59185-9, 79086-5, 48774-6, 76228-0, 28122-1 #### [facility] CLIA [id number] [address] [place] [address] [place] Urinalysis complete panel (U )on 01-18-2024 Bacteria uL 1237.4 uL High Negative [facility] Bilirubin Ql (U) Negative Negative [facility] Clarity (Unsp spec) Clear Clear [facility] Color (U) Yellow Yellow [facility] Epithelial cells LM.HPF (Urine sed) [#/Area] Moderate /HPF [facility] Glucose Test strip (U) [Mass/Vol] Negative Negative [facility] Hemoglobin Ql (U) Negative Negative [facility] Hyaline casts (Urine sed) [#/Area] 0 /[LPF] 0 /LPF [facility] Interpretation and review of laboratory results Abnormal [facility] Ketones Ql (U) Negative Negative [facility] Leukocyte esterase Test strip Ql (U) Negative Negative [facility] Nitrite Ql (U) Negative Negative [facility] pH (U) 6.5 [pH] NINF - 8.5 [facility] Protein (U) [Mass/Vol] Trace Abnormal Negative [facility] RBC LM.HPF (Urine sed) [#/Area] 0-2 /HPF 0-2 /HPF [facility] Specific gravity (U) [Rel density] 1.019 1.005 - 1.030 [facility] Urobilinogen Ql (U) 0.2 EU/dL 0.2-1.0 EU/dL [facility] WBC LM.HPF (Urine sed) [#/Area] 0-5 /HPF 0-5 /HPF [facility] This test was developed and its performance characteristics determined by [facility]'s Malick Martinez [facility] ([facility]). It has not been cleared or approved by the FDA. [facility] is regulated under CLIA as qualified to perform high-complexity testing. This test is used for clinical purposes. It should not be regarded as investigational or for research. [facility] BACTERIA UL 1237.4 uL High Negative [facility] Comment on above: Order Comment: Speci men Type: BLOOD SPECIMEN Ordering Facility: [facility] Address: [address] [place] [address] Performed By: #### 5 1775-5, 52279-1, 56732-5, 80915-4, 71112-2, 75994-4, 73472-7, 70460-6 #### [facility] CLIA [id number] [address] [place] [address] [place] Bilirubin Ql (U) Negative Normal Negative [facility] Comment on above: Order Comment: Speci men Type: BLOOD SPECIMEN Ordering Facility: [facility] Address: [address] [place] [address] Performed By: #### 5 1775-5, 40217-0, 56833-2, 84623-9, 28024-3, 64620-8, 98986-4, 65524-2 #### [facility] CLIA [id number] [address] [place] [address] [place] Clarity (Unsp spec) Clear Normal Clear [facility] Comment on above: Order Comment: Speci men Type: BLOOD SPECIMEN Ordering Facility: [facility] Address: [address] [place] [address] Performed By: #### 5 1775-5, 58292-2, 12055-8, 13013-8, 60617-5, 59197-7, 18974-7, 16633-1 #### [facility] CLIA [id number] [address] [place] [address] [place] Color (U) Yellow Normal Yellow [facility] Comment on above: Order Comment: Speci men Type: BLOOD SPECIMEN Ordering Facility: [facility] Address: [address] [place] [address] Performed By: #### 5 1775-5, 68408-5, 29130-6, 54010-5, 12837-7, 96151-5, 56072-8, 78444-9 #### [facility] CLIA [id number] [address] [place] [address] [place] Epithelial cells LM.HPF (Urine sed) [#/Area] Moderate Normal [facility] Comment on above: Order Comment: Speci men Type: BLOOD SPECIMEN Ordering Facility: [facility] Address: [address] [place] [address] Performed By: #### 5 1775-5, 33004-0, 59312-0, 38140-9, 68477-9, 25488-3, 72080-5, 82575-0 #### [facility] CLIA [id number] [address] [place] [address] [place] Glucose Test strip (U) [Mass/Vol] Negative Normal Negative [facility] Comment on above: Order Comment: Speci men Type: BLOOD SPECIMEN Ordering Facility: [facility] Address: [address] [place] [address] Performed By: #### 5 177-5, 11375-8, 17762-1, 60285-9, 18485-4, 80557-7, 19647-6, 31223-9 #### [facility] CLIA [id number] [address] [place] [address] [place] Hemoglobin Ql (U) Negative Normal Negative [facility] Comment on above: Order Comment: Speci men Type: BLOOD SPECIMEN Ordering Facility: [facility] Address: [address] [place] [address] Performed By: #### 5 1775-5, 82304-1, 03707-8, 02145-4, 78532-6, 15392-9, 45599-7, 53344-1 #### [facility] CLIA [id number] [address] [place] [address] [place] Hyaline casts (Urine sed) [#/Area] 0 /[LPF] Normal 0 /LPF [facility] Comment on above: Order Comment: Speci men Type: BLOOD SPECIMEN Ordering Facility: [facility] Address: [address] [place] [address] Performed By: #### 5 1775-5, 37433-8, 24628-5, 03535-3, 95052-2, 08582-8, 10378-0, 60599-2 #### [facility] CLIA [id number] [address] [place] [address] [place] Ketones Ql (U) Negative Normal Negative [facility] Comment on above: Order Comment: Speci men Type: BLOOD SPECIMEN Ordering Facility: [facility] Address: [address] [place] [address] Performed By: #### 5 1775-5, 81335-6, 89978-5, 37811-7, 37205-0, 88229-1, 06915-4, 36849-0 #### [facility] CLIA [id number] [address] [place] [address] [place] Leukocyte esterase Test strip Ql (U) Negative Normal Negative [facility] Comment on above: Order Comment: Speci men Type: BLOOD SPECIMEN Ordering Facility: [facility] Address: [address] [place] [address] Performed By: #### 5 1775-5, 45280-3, 86515-9, 00234-3, 91354-4, 72194-0, 56192-8, 49922-2 #### [facility] CLIA [id number] [address] [place] [address] [place] Nitrite Ql (U) Negative Normal Negative [facility] Comment on above: Order Comment: Speci men Type: BLOOD SPECIMEN Ordering Facility: [facility] Address: [address] [place] [address] Performed By: #### 5 1775-5, 91859-4, 55541-4, 81658-7, 92079-6, 40528-6, 49932-0, 67833-9 #### [facility] CLIA [id number] [address] [place] [address] [place] pH (U) 6.5 [pH] Normal <8.5 [facility] Comment on above: Order Comment: Speci men Type: BLOOD SPECIMEN Ordering Facility: [facility] Address: [address] [place] [address] Performed By: #### 5 5-5, 93641-4, 83303-9, 79797-8, 66493-3, 15913-1, 74391-0, 33525-9 #### [facility] CLIA [id number] [address] [place] [address] [place] Protein (U) [Mass/Vol] Trace Abnormal Negative [facility] Comment on above: Order Comment: Speci men Type: BLOOD SPECIMEN Ordering Facility: [facility] Address: [address] [place] [address] Performed By: #### 5 1775-5, 33789-6, 65120-8, 05897-5, 66786-8, 16720-1, 18633-2, 46806-6 #### [facility] CLIA [id number] [address] [place] [address] [place] RBC LM.HPF (Urine sed) [#/Area] 0-2 /HPF Normal 0-2 /HPF [facility] Comment on above: Order Comment: Speci men Type: BLOOD SPECIMEN Ordering Facility: [facility] Address: [address] [place] [address] Performed By: #### 5 5-5, 31299-2, 11662-6, 01923-3, 89121-8, 41039-5, 36491-9, 28859-8 #### [facility] CLIA [id number] [address] [place] [address] [place] Specific gravity (U) [Rel density] 1.019 Normal 1.005-1.030 [facility] Comment on above: Order Comment: Speci men Type: BLOOD SPECIMEN Ordering Facility: [facility] Address: [address] [place] [address] Performed By: #### 5 5-5, 80604-7, 23394-1, 39159-1, 53821-4, 29836-2, 33837-1, 39926-7 #### [facility] CLIA [id number] [address] [place] [address] [place] Urobilinogen Ql (U) 0.2 EU/dL Normal 0.2-1.0 EU/dL [facility] Comment on above: Order Comment: Speci men Type: BLOOD SPECIMEN Ordering Facility: [facility] Address: [address] [place] [address] Performed By: #### 5 5-5, 33719-0, 89947-6, 30125-6, 36903-7, 98633-9, 03294-8, 47285-1 #### [facility] CLIA [id number] [address] [place] [address] [place] WBC LM.HPF (Urine sed) [#/Area] 0-5 /HPF Normal 0-5 /HPF [facility] Comment on above: Order Comment: Speci men Type: BLOOD SPECIMEN Ordering Facility: [facility] Address: [address] [place] [address] Performed By: #### 5 5-5, 99262-0, 71667-1, 04117-5, 34073-1, 09689-5, 25026-7, 56449-0 #### [facility] CLIA [id number] [address] [place] [address] [place] cCP IgG SerPl-aCncon 11-25-2 024 Cyclic citrullinated peptide IgG Qn <15 Normal <20 [facility] Comment on above: Order Comment: Speci men Type: BLOOD SPECIMEN Ordering Facility: [facility] Address: [address] [place] [address] Performed By: #### 5 1775-5, 07630-8, 03690-1, 71314-0, 41625-1, 25814-4, 51013-7, 17496-6 #### [facility] CLIA [id number] [address] [facility] [place] [place] [id number] [place] Office Visiton 12-02-2023 Follow-up visit [id number] Essie Steele 1965 Date Provider Department Center 12/02/2023 SUSANNE JEFFERSON [facility] Family History Problem Relation Age of Onset Heart attack Mother's Brother Hypertension Maternal Grandmother Family Status - Relation Status Age at Mother's Brother Maternal Grandmother Level of Service:37018 CO OFFICE/OUTPATIENT ESTABLISHED LOW MDM 20 MIN Reason for Visit and Comments: Atrial Fibrillation [80] Normal [facility] CNOVon 11-23-2023 CNOV Office Visit (WCTRMN ) ESSIE STEELE ([id number]) 1965 F Date Time Provider Department 11/23/23 [...] lost both of her sisters spends time confucianism work grandkids and books on tape dogs [...] thinks lining was too thick TAHBSO at [place] [facility] Castro had an TVUS and revealed [...] prior Bx. Last mammo 4-6 wks at [facility]. BONE: Denies FMH OP/fx. No PMH [...] first a (more content not included)... Normal [facility] Orders Onlyon 11-20-2023 Orders Only [id number] Essie Steele 1965 F Date Provider Department Center 11/20/2023 [id number], HISTORICAL ASHWIN Patel Family History Problem Relation Age of Onset Heart attack Mother's Brother Hypertension Maternal Grandmother Family Status - Relation Status Age at Mother's Brother Maternal Grandmother Normal [facility] Orders Onlyon 11-17-2023 Orders Only [id number] Essie Steele 1965 F Date Provider Department Center 11/17/2023 [id number], HISTORICAL [facility] Rodríguez Count Family History Problem Relation Age of Onset Heart attack Mother's Brother Hypertension Maternal Grandmother Family Status - Relation Status Age at Mother's Brother Maternal Grandmother Normal [facility] INSULINon 06-13-2022 Insulin 8.5 uIU/mL Normal 2.6-24.9 [facility] Comment on above: Performed By: #### I NSULIN #### [facility] [address] [place] [address] Dr. Delonte Sparrow AMMONIAon 06-12-2022 Ammonia (P) [Moles/Vol] 33 umol/L Critically high 11-32 [facility] Comment on above: Performed By: #### A MM #### [facility] [address] [place] [address] Dr. Delonte Sparrow AMYLASEon 06-12-2022 Amylase [Catalytic activity/Vol] 47 U/L Normal 25-115 [facility] Comment on above: Performed By: #### L IPA, CMP, NONI #### [facility] [address] [place] [address] Dr. Delonte Sparrow CBC AUTO DIFFon 06-12-2022 BASO # 0.0 103/ul Normal 0.0-0.1 [facility] Comment on above: Performed By: #### C BC #### [facility] [address] [place] [address] Dr. Delonte Sparrow Basophils/100 WBC (Bld) 0.7 % Normal 0.2-2.0 [facility] Comment on above: Performed By: #### C BC #### [facility] [address] [place] [address] Dr. Delonte Sparrow EO # 0.3 103/ul Normal 0.0-0.7 [facility] Comment on above: Performed By: #### C BC #### [facility] [address] [place] [address] Dr. Delonte Sparrow Eosinophils/100 WBC (Bld) 4.3 % Normal 0.9-7.0 [facility] Comment on above: Performed By: #### C BC #### [facility] [address] [place] [address] Dr. Delonte Sparrow Erythrocyte distribution width (RBC) [Ratio] 15.0 % Normal 11.0-15.0 [facility] Comment on above: Performed By: #### C BC #### [facility] [address] [place] [address] Dr. Delonte Sparrow Hematocrit (Bld) [Volume fraction] 38.8 % Normal 36.0-48.0 [facility] Comment on above: Performed By: #### C BC #### [facility] [address] [place] [address] Dr. Delonte Sparrow Hemoglobin (Bld) [Mass/Vol] 12.0 g/dL Normal 12.0-16.0 [facility] Comment on above: Performed By: #### C BC #### [facility] [address] [place] [address] Dr. Delonte Sparrow IG # 0.03 10e3/ul Normal 0.00-0.03 [facility] Comment on above: Performed By: #### C BC #### [facility] [address] [place] [address] Dr. Delonte Sparrow IG % 0.5 % Normal 0.0-0.5 [facility] Comment on above: Performed By: #### C BC #### [facility] [address] [place] [address] Dr. Delonte Sparrow LYMPH # 1.7 103/ul Normal 1.2-3.8 [facility] Comment on above: Performed By: #### C BC #### [facility] [address] [place] [address] Dr. Delonte Sparrow Lymphocytes/100 WBC (Bld) 27.3 % Normal 20.5-60.0 [facility] Comment on above: Performed By: #### C BC #### [facility] [address] [place] [address] Dr. Delonte Sparrow MANUAL DIFF REQ NO Normal [facility] Comment on above: Performed By: #### C BC #### [facility] [address] [address] [address] Delonte Sparrow MCH (RBC) [Entitic mass] 24.1 pg Critically low 26.7-34.0 [facility] Comment on above: Performed By: #### C BC #### [facility] [address] [place] [address] Dr. Delonte Sparrow MCHC (RBC) [Mass/Vol] 30.9 g/dL Normal 29.9-35.2 [facility] Comment on above: Performed By: #### C BC #### [facility] [address] [place] [address] Dr. Delonte Sparrow MCV (RBC) [Entitic vol] 78.1 fL Critically low 81.0-99.0 [facility] Comment on above: Performed By: #### C BC #### [facility] [address] [place] [address] Dr. Delonte Sparrow MONO # 0.4 103/ul Normal 0.3-0.8 [facility] Comment on above: Performed By: #### C BC #### [facility] [address] [place] [address] Dr. Delonte Sparrow Monocytes/100 WBC (Bld) 6.4 % Normal 1.7-12.0 [facility] Comment on above: Performed By: #### C BC #### [facility] [address] [place] [address] Dr. Delonte Sparrow NEUT # 3.7 103/ul Normal 1.4-6.5 [facility] Comment on above: Performed By: #### C BC #### [facility] [address] [place] [address] Dr. Delonte Sparrow Neutrophils/100 WBC (Bld) 60.8 % Normal 43.0-75.0 [facility] Comment on above: Performed By: #### C BC #### [facility] [address] [place] [address] Dr. Delonte Sparrow Platelet mean volume (Bld) [Entitic vol] 9.7 fL Normal 9.5-13.5 [facility] Comment on above: Performed By: #### C BC #### [facility] [address] [place] [address] Dr. Delonte Sparrow PLT 263 103/ul Normal 150-450 [facility] Comment on above: Performed By: #### C BC #### [facility] [address] [place] [address] Dr. Delonte Sparrow RBC 4.97 106/ul Normal 4.20-5.40 [facility] Comment on above: Performed By: #### C BC #### [facility] [address] [place] [address] Dr. Delonte Sparrow WBC 6.1 103/ul Normal 4.0-11.0 [facility] Comment on above: Performed By: #### C BC #### [facility] [address] [place] [address] Dr. Delonte Sparrow FREE THYROXINE INDEX T7on FTI 2.61 Normal 1.30-4.50 [facility] Comment on above: Performed By: #### L IPA, CMP, NONI #### [facility] [address] [place] [address] Dr. Delonte Sparrow T3U 33.0 % Normal 30.0-39.0 [facility] Comment on above: Performed By: #### L IPA, CMP, NONI #### [facility] [address] [place] [address] Dr. Delonte Sparrow T4 [Mass/Vol] 7.90 ug/dL Normal 4.80-13.90 [facility] Comment on above: Performed By: #### L IPA, CMP, NONI #### [facility] [address] [place] [address] Dr. Delonte Sparrow GLYCOHEMOGLOBIN A1Con 2022 ADA RECOMMENDATION SEE BELOW Normal [facility] Comment on above: Result Comment: ADA RECOMMENDED LIMIT 4.0 - 6.0 ADA THERAPEUTIC TARGET < 7.0 ACTION SUGGESTED > 7.0 Performed By: #### A 1C #### [facility] [address] [place] [address] Dr. Delonte Sparrow Glucose [Mass/Vol] 105 mg/dL Normal [facility] Comment on above: Performed By: #### A 1C #### [facility] [address] [place] [address] Dr. Delonte Sparrow HbA1c (Bld) [Mass fraction] 5.3 % Normal 4.5-6.2 [facility] Comment on above: Performed By: #### A 1C #### [facility] [address] [place] [address] Dr. Delonte Sparrow IRONon 06-12-2022 Iron [Mass/Vol] 35.0 ug/dL Critically low 50.0-170.0 [facility] Comment on above: Performed By: #### L ADELE OCONNELL, NONI #### [facility] [address] [place] [address] Dr. Delonte Sparrow LIPASEon 06-12-2022 Lipase [Catalytic activity/Vol] 130.0 U/L Normal 73.0-393.0 [facility] Comment on above: Performed By: #### L ADELE OCONNELL, NONI #### [facility] [address] [place] [address] Dr. Delonte Sparrow TSHon 06-12-2022 TSH 1.741 uIU/mL Normal 0.358-3.740 [facility] Comment on above: Performed By: #### L ADELE OCONNELL, NONI #### [facility] [address] [place] [address] Dr. Delonte Sparrow VITAMIN D 25 OHon 06-12-2022 VIT D 25-OH 20.9 ng/mL Normal [facility] Comment on above: Performed By: #### I AMANDA VITAD #### [facility] [address] [place] [address] Dr. Delonte Sparrow VIT D RANGES SEE BELOW Normal [facility] Comment on above: Result Comment: <20 ng/mL Vit D deficient 20 - <30 ng/mL Vit D insufficient 30 - 100 ng/mL Vit D sufficient >100 ng/mL Potential Toxicity Performed By: #### I AMANDA VITAD #### [facility] [address] [place] [address] Dr. Delonte Sparrow AMYLASEon 08-21-2021 Amylase [Catalytic activity/Vol] 26 U/L Normal 25-115 [facility] Comment on above: Performed By: #### L IPA, CMP, NONI #### [facility] [address] [place] [address] Dr. Delonte Sparrow CBC W MANUAL DIFFon 08-22-19 22 ATYPICAL LYMPH # Normal [facility] Comment on above: Performed By: #### C BCMAN #### [facility] [address] [place] [address] Dr. Delonte Sparrow ATYPICAL LYMPH % Normal [facility] Comment on above: Performed By: #### C BCSEA #### [facility] [address] [place] [address] Dr. Delonte Sparrow BAND # Normal 0.0-0.3 [facility] Comment on above: Performed By: #### C BRITT #### [facility] [address] [place] [address] Dr. Delonte Sparrow BAND % Normal 0-5 [facility] Comment on above: Performed By: #### C BRITT #### [facility] [address] [place] [address] Dr. Delonte Sparrow BASOM # 0.00 103/ul Normal 0.00-0.10 [facility] Comment on above: Performed By: #### C BRITT #### [facility] [address] [place] [address] Dr. Delonte Sparrow BASOM % 0.0 % Critically low 0.2-2.0 [facility] Comment on above: Performed By: #### C BCSEA #### [facility] [address] [place] [address] Dr. Delonte Sparrow BLAST # Normal [facility] Comment on above: Performed By: #### C BCMAN #### [facility] [address] [place] [address] Dr. Delonte Sparrow BLAST % Normal [facility] Comment on above: Performed By: #### C BRITT #### [facility] [address] [place] [address] Dr. Delonte Sparrow CORRECTED WBC Normal 4.0-11.[address] [facility] Comment on above: Performed By: #### C BCMAN #### [facility] [address] [address] [address] Delonte Sparrow EOS # 15.45 103/ul Critically high 0.00-0.70 [facility] Comment on above: Performed By: #### C BCMAN #### [facility] [address] [address] [address] Delonte Sparrow EOS% 57.0 % Critically high 0.9-7.0 [facility] Comment on above: Performed By: #### C BCMAN #### [facility] [address] [address] [address] Delonte Sparrow HCT 45.1 % Normal 36.0-48.0 [facility] Comment on above: Performed By: #### C BCSEA #### [facility] [address] [address] [address] Delonte Sparrow HGB 13.9 g/dl Normal 12.0-16.0 [facility] Comment on above: Performed By: #### C BCMAN #### [facility] [address] [address] [address] Delonte Sparrow LYMPHM # 2.98 103/ul Normal 1.20-3.80 [facility] Comment on above: Performed By: #### C BCMAN #### [facility] [address] [address] [address] Delonte Sparrow LYMPHM% 11.0 % Critically low 20.5-60.0 [facility] Comment on above: Performed By: #### C BCMAN #### [facility] [address] [address] [address] Delonte Sparrow MCH 23.3 pg Critically low 26.7-34.0 [facility] Comment on above: Performed By: #### C BCMAN #### [facility] [address] [address] [address] Delonte Sparrow MCHC 30.8 g/dl Normal 29.9-35.2 [facility] Comment on above: Performed By: #### C BRITT #### [facility] [address] [address] [address] Delonte Sparrow MCV 75.5 fL Critically low 81.0-99.0 [facility] Comment on above: Performed By: #### C BRITT #### [facility] [address] [address] [address] Delonte Sparrow METAMYELOCYTE # Normal [facility] Comment on above: Performed By: #### C BRITT #### [facility] [address] [place] [address] Dr. Delonte Sparrow METAMYELOCYTE % Normal [facility] Comment on above: Performed By: #### C BRITT #### [facility] [address] [place] [address] Dr. Delonte Sparrow MONOM# 1.63 103/ul Critically high 0.30-0.80 [facility] Comment on above: Performed By: #### C BRITT #### [facility] [address] [place] [address] Dr. Delonte Sparrow MONOM% 6.0 % Normal 1.7-12.0 [facility] Comment on above: Performed By: #### C BRITT #### [facility] [address] [place] [address] Dr. Delonte Sparrow MPV 9.9 fL Normal 9.5-13.5 [facility] Comment on above: Performed By: #### C BRITT #### [facility] [address] [place] [address] Dr. Delonte Sparrow MYELOCYTE # Normal [facility] Comment on above: Performed By: #### C BRITT #### [facility] [address] [place] [address] Dr. Delonte Sparrow MYELOCYTE % Normal [facility] Comment on above: Performed By: #### C BRITT #### [facility] [address] [place] [address] Dr. Delonte Sparrow NRBC Normal [facility] Comment on above: Performed By: #### C BRITT #### [facility] [address] [address] [address] Delonte Sparrow PLT 343 103/ul Normal 150-450 [facility] Comment on above: Performed By: #### Pravin DE LA TORRE #### [facility] [address] [address] [address] Delonte Sparrow RBC 5.97 106/ul Critically high 4.20-5.40 [facility] Comment on above: Performed By: #### Pravin DE LA TORRE #### [facility] [address] [address] [address] Delonte Sparrow RDW 16.9 % Critically high 11.0-15.0 [facility] Comment on above: Performed By: #### Pravin DE LA TORRE #### [facility] [address] [address] [address] Delonte Sparrow SEG # 7.05 103/ul Critically high 1.40-6.50 [facility] Comment on above: Performed By: #### Pravin DE LA TORRE #### [facility] [address] [address] [address] Delonte Sparrow SEG % 26.0 % Critically low 43.0-75.0 [facility] Comment on above: Performed By: #### Pravin DE LA TORRE #### [facility] [address] [address] [address] Delonte Sparrow WBC 27.1 103/ul Critically high 4.0-11.0 [facility] Comment on above: Performed By: ###Kelin DE LA TORRE #### [facility] [address] [place] [address] ABD/PELV W CONon [...] DWIGHT TOBAR Date: 2021-08-21 16:48 Normal [facility] LIPASEon 08-21-2021 Lipase [Catalytic activity/Vol] 58.0 U/L Critically low 73.0-393.0 [facility] Comment on above: Performed By: #### L IPA, CMP, NONI #### [facility] [address] [place], [place] [id number] Dr. Delonte Sparrow PROF 14(COMP METB)on 022 Albumin [Mass/Vol] 3.6 g/dL Normal 3.4-5.0 [facility] Comment on above: Performed By: #### L IPA, CMP, NONI #### [facility] [address] [place] [address] Dr. Delonte Sparrow Albumin/Globulin [Mass ratio] 1.0 {ratio} Normal [facility] Comment on above: Performed By: #### L IPA, CMP, NONI #### [facility] [address] [address] [address] Delonte Sparrow ALP [Catalytic activity/Vol] 125 U/L Critically high 46-116 [facility] Comment on above: Performed By: #### L IPA, CMP, NONI #### [facility] [address] [place] [address] Dr. Delonte Sparrow ALT [Catalytic activity/Vol] 27 U/L Normal 14-59 [facility] Comment on above: Performed By: #### L IPA, CMP, NONI #### [facility] [address] [place] [address] Dr. Delonte Sparrow Anion gap [Moles/Vol] 12.7 mmol/L Normal [facility] Comment on above: Performed By: #### L IPA, CMP, NONI #### [facility] [address] [place] [address] Dr. Delonte Sparrow AST [Catalytic activity/Vol] 15 U/L Normal 15-37 [facility] Comment on above: Performed By: #### L IPA, CMP, NONI #### [facility] [address] [place] [address] Dr. Delonte Sparrow Bilirubin [Mass/Vol] 0.3 mg/dL Normal 0.2-1.0 [facility] Comment on above: Performed By: #### L IPA, CMP, NONI #### [facility] [address] [place] [address] Dr. Delonte Sparrow Calcium [Mass/Vol] 8.2 mg/dL Critically low 8.5-10.1 [facility] Comment on above: Performed By: #### L IPA, CMP, NONI #### [facility] [address] [address] [address] Delonte Sparrow Chloride [Moles/Vol] 103 mmol/L Normal 98-107 [facility] Comment on above: Performed By: #### L IPA, CMP, NONI #### [facility] [address] [address] [address] Delonte Sparrow CO2 [Moles/Vol] 29.2 mmol/L Normal 21.0-32.0 [facility] Comment on above: Performed By: #### L IPA, CMP, NONI #### [facility] [address] [address] [address] Delonte Sparrow Creatinine [Mass/Vol] 0.81 mg/dL Normal 0.55-1.02 [facility] Comment on above: Performed By: #### L IPA, CMP, NONI #### [facility] [address] [address] [address] Delonte Sparrow EGFR-AF FRENCH >60 Normal >=60 [facility] Comment on above: Performed By: #### L IPA, CMP, NONI #### [facility] [address] [address] [address] Delonte Sparrow EGFR-NON AF FRENCH >60 Normal >=60 [facility] Comment on above: Performed By: #### L IPA, CMP, NONI #### [facility] [address] [address] [address] Delonte Sparrow Globulin (S) [Mass/Vol] 3.7 g/dL Normal [facility] Comment on above: Performed By: #### L IPA, CMP, NONI #### [facility] [address] [address] [address] Delonte Sparrow Glucose [Mass/Vol] 103 mg/dL Normal 74-106 [facility] Comment on above: Performed By: #### L IPA, CMP, NONI #### [facility] [address] [address] [address] Delonte Sparrow Potassium [Moles/Vol] 3.9 mmol/L Normal 3.5-5.1 [facility] Comment on above: Performed By: #### L IPA, CMP, NONI #### [facility] [address] [place] [address] Dr. Delonte Sparrow Protein [Mass/Vol] 7.3 g/dL Normal 6.4-8.2 [facility] Comment on above: Performed By: #### L IPA, CMP, NONI #### [facility] [address] [place] [address] Dr. Delonte Sparrow Sodium [Moles/Vol] 141 mmol/L Normal 136-145 [facility] Comment on above: Performed By: #### L IPA, CMP, NONI #### [facility] [address] [place] [address] Dr. Delonte Sparrow Urea nitrogen [Mass/Vol] 16.0 mg/dL Normal 7.0-18.0 [facility] Comment on above: Performed By: #### L IPA, CMP, NONI #### [facility] [address] [place] [address] Dr. Delonte Sparrow Urea nitrogen/Creatinine [Mass ratio] 19.8 mg/mg Normal [facility] Comment on above: Performed By: #### L IPA, CMP, NONI #### [facility] [address] [place] [address] Dr. Delonte Sparrow COVID-19 Positive/Negativeon 06-20-2020 SARS-CoV-2 (COVID-19) N gene WES+probe Ql (Resp) Negative Negative [facility] Comment on above: Testing for SARS-CoV -2 by RT-PCRThis test was developed and its performance characteristics determined by [employer] ([place]) and validated at the [facility]. This test has not been FDA cleared [...] WES+probe Ql (Unsp spec) N/A [facility] Cytologyon 04-12-2018 Cytology (NOTE) [id number] [facility] [email or web address] [facility] ANATOMIC PATHOLOGY [address] [place] [address]. [place], [place] [address] GYNECOLOGIC CYTOLOGY REPORT Patient Name: ESSIE STEELE MR#: [id number] Specimen #[id number] Source: 1: Cervical material, (ThinPrep vial, Imaging-assisted review) Clinical History Postmenopausal Z01.419 Routine medical assistant ob gyn exam without abnormal findings High Risk HPV DNA testing is requested if the diagnosis is ASC-US LMP: 11/11/15 INTERPRETATION Cervical material, (ThinPrep vial, Imaging-assisted review): Specimen Adequacy: Satisfactory for evaluation. - Endocervical/transfor mation zone component present. - Scant cellularity, predominantly inflammatory exudate. Descriptive Diagnosis: Negative for intraepithelial lesion or malignancy. Shift in bruce suggestive of bacterial vaginosis. Trust Operations Assistant: HARJIT Valera(ASCP) Electronically Signed Out bessie/04/23/2018 Normal [facility] Comment on above: Performed By: #### P PPVP #### [facility] [employer] [address] [place] [address] [id number] Assistant Nurse Manager: Karthik Lynn MD Vital Signs Date Time Vital Sign Value Performing Clinician Facility 07-19-2024 10: Body height 170.18 cm [facility] 07-19-2024 10: Body mass index (BMI) [Ratio] 35.4 kg/m2 [facility] 07-19-2024 10: Body weight 102.51 kg [facility] 07-19-2024 10:13-0400 Diastolic blood pressure 75 mm[Hg] [facility] 07-19-2024 10:13-0400 Heart rate 65 /min [facility] 07-19-2024 10:13-0400 Systolic blood pressure 116 mm[Hg] [facility] 05-05-2024 14:25-0400 Body mass index (BMI) [Ratio] 33.52 kg/m2 Wolf Medley MD Work Phone: [facility] 05-05-2024 14:25-0400 Body weight 97.07 kg Wolf Medley MD Work Phone: [facility] 05-05-2024 14:25-0400 Diastolic blood pressure 86 mm[Hg] Wolf Medley MD Work Phone: [facility] 05-05-2024 14:25-0400 Systolic blood pressure 134 mm[Hg] Wolf Medley MD Work Phone: [facility] 01-18-2024 09:19-0500 Body height 168.9 cm Renny Baron MD Work Phone: [facility] 01-18-2024 09:19-0500 Body mass index (BMI) [Ratio] 38.27 kg/m2 Renny Baron MD Work Phone: [facility] 01-18-2024 09:19-0500 Body temperature 97.2 [degF] Renny Baron MD Work Phone: [facility] 01-18-2024 09:19-0500 Body weight 109.2 kg Renny Baron MD Work Phone: [facility] 01-18-2024 09:19-0500 Diastolic blood pressure 100 mm[Hg] Renny Baron MD Work Phone: [facility] 01-18-2024 09:19-0500 Heart rate 68 /min Renny Baron MD Work Phone: [facility] 01-18-2024 09:19-0500 Systolic blood pressure 153 mm[Hg] Renny Baron MD Work Phone: [facility] 11-23-2023 08:11-0400 Body weight 108.5 kg Kristy Evangelista MD Work Phone: [facility] 11-23-2023 08:11-0400 Diastolic blood pressure 74 mm[Hg] Kristy Evangelista MD Work Phone: [facility] 11-23-2023 08:11-0400 Heart rate 71 /min Kristy Evangelista MD Work Phone: [facility] 11-23-2023 08:11-0400 Systolic blood pressure 139 mm[Hg] Kristy Evangelista MD Work Phone: [facility] 09-24-2023 09:46-0400 Body temperature 98.2 [degF] Lester Kubitz DPM Work Phone: [facility] 09-24-2023 09:46-0400 Diastolic blood pressure 74 mm[Hg] Lester Kubitz DPM Work Phone: [facility] 09-24-2023 09:46-0400 Heart rate 65 /min Lester Kubitz DPM Work Phone: [facility] 09-24-2023 09:46-0400 Systolic blood pressure 122 mm[Hg] Lester Kubitz DPM Work Phone: [facility] 10-07-2022 09:30-0400 Body height 170.18 cm Philippe Wise Other [employer] Other 10-07-2022 09:30-0400 Body mass index (BMI) [Ratio] 34.45 kg/m2 Philippe Wise Other [employer] Other 10-07-2022 09:30-0400 Body weight 99.79 kg Philippe Wise Other [employer] Other 10-07-2022 09:30-0400 Diastolic blood pressure 83 mm[Hg] Philippe Wise Other [employer] Other 10-07-2022 09:30-0400 Systolic blood pressure 139 mm[Hg] Philippe Wise Other [employer] Other 08-29-2021 12:00-0400 Body height 170.18 cm René Cjdesiree Other [employer] Other 08-29-2021 12:00-0400 Body mass index (BMI) [Ratio] 35.55 kg/m2 René Ly Other [employer] Other 08-29-2021 12:00-0400 Body weight 102.97 kg René Ly Other [employer] Other 08-29-2021 12:00-0400 Diastolic blood pressure 89 mm[Hg] René Ly Other [employer] Other 08-29-2021 12:00-0400 Systolic blood pressure 142 mm[Hg] René Ly Other [employer] Other Encounters Encounter Date Encounter Type Care Provider Facility Start: 07-21-2024 End: 07-21-2024 Patient encounter procedure Brett Paniagua MD Work Phone: [facility] Work Phone: Start: 07-21-2024 End: 07-21-2024 ambulatory Brett Paniagua MD Work Phone: [facility] Work Phone: Start: 07-19-2024 End: 07-19-[address] [facility] Work Phone: Start: 07-19-2024 End: 07-19-2024 [facility] Work Phone: Start: 06-24-2024 End: 06-24-2024 ambulatory [facility] Start: 05-05-2024 End: 05-05-2024 Initial preventive medicine [...] 03-25-2024 End: 03-25-2024 ambulatory Brett Hoy Facility:[facility] [place] Start: 03-25-2024 End: 03-25-2024 Patient encounter procedure Zacarias COBIAN [facility] [place] Start: 03-15-2024 ambulatory Brett Hoy Facility:[facility] Start: 03-11-2024 ambulatory Brett Hoy Facility:[facility] [place] Start: 03-08-2024 End: 03-09-2024 ambulatory Kristy Evangelista MD Work Phone: [facility] Comment on above: PCP Start: 02-29-2024 End: 03-01-2024 Refill Kristy Evangelista MD Work Phone: [facility] Comment on above: Refill Request Start: 02-28-2024 End: 02-29-2024 Refill Renny Baron MD Work Phone: Rheumatology Comment on above: Refill Request Start: 02-08-2024 End: 02-08-2024 ambulatory RENNY BARON Facility:[facility] Comment on above: Arthralgia, unspecif ied [...] Start: 01-18-2024 End: 01-18-2024 ambulatory RENNY BARON Facility:[facility] Start: 01-18-2024 End: 01-18-2024 Office outpatient new 60 minutes Renny Baron MD Work Phone: Rheumatology Comment on above: Encounter for long-t erm (current) use of medications (Primary Dx); Crohn's disease of large intestine without complication (HCC); Arthritis; Enthesitis; Arthralgia, unspecified joint Start: 01-18-2024 End: 01-18-2024 ambulatory KRISTY EVANGELISTA Facility:[facility] Start: 01-18-2024 End: 01-18-2024 Subsequent hospital visit by physician [facility] A[facility] 1 Radiology Comment on above: Symptomatic menopaus al or female climacteric states [N95.1] Start: 12-02-2023 End: 12-02-2023 ambulatory [facility] Start: 11-23-2023 End: 11-23-2023 ambulatory KRISTY EVANGELISTA Facility:[facility] Start: 11-23-2023 End: 11-23-2023 Patient encounter procedure Kristy Evangelista MD Work Phone: [facility] Comment on above: Symptomatic menopaus al or female climacteric states (Primary Dx); Paroxysmal atrial fibrillation (HCC); Gastroesophageal reflux disease without esophagitis; Migraine with aura and with status migrainosus, not intractable; Crohn's disease of large intestine without complication (HCC); Arthritis Start: 09-24-2023 End: 09-24-2023 Office outpatient visit 15 minutes Lester Harrell DPM Work Phone: [facility] Comment on above: Pain of right foot ( Primary Dx); Pain of right heel; Pain of left foot; Pain of left heel; Bilateral plantar fasciitis Start: 09-24-2023 End: 09-24-2023 ambulatory LESTER HARRELL Not Available Start: 07-01-2023 End: 07-01-2023 ambulatory [facility] Start: 10-07-2022 End: 10-07-2022 ambulatory Philippe Wise Other [employer] Other Start: 10-07-2022 Patient encounter procedure Philippe Wise [facility] G[facility] Start: 07-07-[address] BRETT PANIAGUA . Facili ty:[facility] Start: 06-12-2022 End: 06-13-[address] BRETT PANIAGUA . Facility:[facility] Start: 08-29-2021 End: 08-29-2021 ambulatory René Ly Other [employer] Other Start: 08-29-2021 Office outpatient vi sit 25 minutes René Ly [facility] Gastro[facility] Start: 08-21-2021 End: 08-22-[address] BRETT PANIAGUA . Facility:[facility] Start: 06-20-2020 End: 06-20-2020 Patient encounter procedure Nader Paniagua Work Phone: -Pre-Surgical Testing Start: 04-12-2018 Encounter for gynecological examination (general) (routine) without abnormal findings [facility] Start: 04-12-2018 End: 04-13-2018 Patient encounter procedure [facility] Procedures Date Procedure Procedure Detail Performing [...] Detail Author Start: 01-17-2027 Diabetes Screening Diabetes [facility] Start: 05-05-2024 End: 05-05-2024 Patient encounter procedure 05/05/2024 2:15 PM EDT Office Visit [facility] [address] [place] [address] Wolf Medley MD [address] [place] [address] Well woman exam with routine gynecological exam; Cervical cancer screening; Screening for HPV (human papillomavirus); Other screening mammogram [facility] Comment on above: Well woman exam with routine gynecological exam; Cervical cancer screening; Screening for HPV (human papillomavirus); Other screening mammogram Start: 03-14-2024 End: 03-14-2024 Patient encounter procedure 03/14/2024 11:20 AM EST Office Visit [facility] [address] [place] [address] Kristy Evangelista MD [address] [place] [address] 3 MONTH FOLLOW UP [facility] Comment on above: 3 MONTH FOLLOW UP Start: 02-08-2024 End: 02-08-2024 ambulatory 02/08/2024 9:[address] [facility] Rheumatology [address] [address] Renny Baron MD [address] [address] 3w f/u - discuss results Rheumatology Comment on above: 3w f/u - discuss res ults Start: 01-18-2024 End: 04-18-2024 BLOOD TB SCREEN [facility] Comment on above: Expected: 01/18/2024 , Expires: 04/18/2024 Start: 01-18-2024 End: 04-18-2024 Cyclic citrullinated peptide IgG Ab [Units/volume] in Serum or Plasma [facility] Comment on above: Expected: 01/18/2024 , Expires: 04/18/2024 Start: 01-18-2024 End: 04-18-2024 DNA double strand Ab [Units/volume] in Serum by Immunoassay [facility] Comment on above: Expected: 01/18/2024 , Expires: 04/18/2024 Start: 01-18-2024 End: 04-18-2024 Extractable nuclear Ab panel - Serum [facility] Comment on above: Expected: 01/18/2024 , Expires: 04/18/2024 Start: 01-18-2024 End: 01-18-2024 Patient encounter procedure Radiology Comment on above: DXA-AXIAL SKELETON, Symptomatic menopausal or female climacteric states [N95.1], BD DXA TRABECULAR BONE SCORE (TBS),.Symptomatic menopausal or female climacteric states [N95.1] Arthritis [M19.90] Start: 10-25-2023 Covid-19 Vaccine () Covid-19 Vaccine () [facility] Start: 10-25-2023 Influenza vaccination Influenza Vacc ine (#1) [facility] Start: 04-12-2021 Screening for malign ant neoplasm of cervix [facility] Start: 01-17-2016 Pneumococcal Vaccine : 50+ (1 of 1 - PCV) Pneumococcal Vaccine: 50+ (1 of 1 - PCV) [facility] Start: 01-17-2016 Shingrix Vaccine (1 of 2) Shingrix Vaccine (1 of 2) [facility] Start: 2011 Diabetes Screening Diabetes Screenin g [facility] Start: 2011 Lipid panel Lipid Screening [facility] Start: 2011 Screening for malign ant neoplasm of colon [facility] Start: 2006 Screening for malign ant neoplasm of breast [facility] Start: 01-17-1996 Screening for malign ant neoplasm of cervix HPV/Cotest [facility] Start: 1985 Hepatitis B Vaccine (1 of 3 - 19+ 3-dose series) Hepatitis B Vaccine (1 of 3 - 19+ 3-dose series) [facility] Start: 1985 Urine microalbumin profile DTaP,Tdap,Td Vaccine (1 - Tdap) [facility] Start: 01-17-1984 Anxiety Screening Anxiety Screening [facility] Start: 01-17-1984 Depression Screening Depression Scre ening [facility] Start: 01-17-1984 Hepatitis C screening Hepatitis C Sc reening [facility] Start: 01-17-1984 HIV screening HIV Screening [facility] Start: 1966 Screening for malign ant neoplasm of colon [facility] End: 12-22-2024 BD DXA TRABECULAR BONE SCORE (TBS) BD DXA TRABECULAR BONE SCORE (TBS) Radiology Routine Symptomatic menopausal or female climacteric states 1 Occurrences starting 11/23/2023 until 12/22/2024 [facility] Comment on above: 1 Occurrences starti ng 11/23/2023 until 12/22/2024 End: 12-22-2024 DXA Skeletal system.axial Views for bone density DXA-AXIAL SKELETON Radiology Routine Symptomatic menopausal or female climacteric states 1 Occurrences starting 11/23/2023 until 12/22/2024 [facility] Work Phone: Comment on above: 1 Occurrences starti ng 11/23/2023 until 12/22/2024 IGP, APT HPV,RFX 16/18,45 IGP, APT HPV,RFX 16/18,45 Lab Routine Cervical cancer screening Screening for HPV (human papillomavirus) Ordered: 05/05/2024 [facility] Work Phone: Comment on above: Ordered: 05/05/2024 Supine abdominal X-ray [facility] End: 02-16-2025 XR Hand - bilateral PA and Lateral XR HAND 2V PA/LAT BILATERAL Radiology Routine Arthritis 1 Occurrences starting 01/18/2024 until 02/16/2025 [facility] Comment on above: 1 Occurrences starti ng 01/18/2024 until 02/16/2025 End: 02-16-2025 XR Sacroiliac Joint Views XR SACROILIAC JOINTS 2V AP PELVIS/FERGUESON Radiology Routine Arthritis 1 Occurrences starting 01/18/2024 until 02/16/2025 [facility] Work Phone: Comment on above: 1 Occurrences starti ng 01/18/2024 until 02/16/2025 End: 02-16-2025 XR Shoulder - left 2 Views XR SHOULDER LIMITED 2V AP/TRUE AP LEFT Radiology Routine Arthritis 1 Occurrences starting 01/18/2024 until 02/16/2025 [facility] Comment on above: 1 Occurrences starti ng 01/18/2024 until 02/16/2025 End: 02-16-2025 XR Shoulder - right 2 Views XR SHOULDER [id number] AP/TRUE AP RIGHT Radiology Routine Arthritis 1 Occurrences starting 01/18/2024 until 02/16/2025 [facility] Comment on above: 1 Occurrences starti ng 01/18/2024 until 02/16/2025 Immunizations Immunization Date Immunization Notes Care Provider Angeles wilson 04-04-2020 SARS-CoV-2 (COVID-19 ) mRNA-1273 vaccine Zacarias COBIAN [facility] [place] 03-07-2020 SARS-CoV-2 (COVID-19 ) mRNA-1273 vaccine Zacarias COBIAN [facility] [place] 12-07-2015 influenza virus vaccine, unspecified formulation Kristy Evangelista MD Work Phone: [facility] Payers Date Payer Category Payer Self-pay [id number] 2017 Private Health Insurance AET[employer] AETNA POS [id number] 2017-Present [phone] [address] [place] [address] POS [id number] 2003 Managed Care O (unspecified) [employer] [id number] 1966 Unknown [id number] 1966 Unknown [id number] 1966 Unknown [id number] 1966 Unknown [id number] 1966 Unknown [id number] [id number] 1966 Unknown [id number] [id number] 1966 Unknown [id number] 1966 Unknown [id number] 1959 Private Health Insurance [id number] Unknown [id number] Unknown [id number] Social History Date Type Detail Facility Start: 11-03-2018 End: 06-22-2020 Tobacco smoking status IAIS Ex-smoker (finding) [facility] Start: 1965 Sex Assigned At Female F [facility] Start: 11-23-2023 End: 05-05-2024 Sex Assigned At [facility] Start: 11-23-2023 Tobacco smoking stat [facility] Never smoked tobacco [facility] Start: 09-24-2023 End: 11-23-2023 Tobacco use and exposure Smokeless tobacco non-user [facility] Start: 11-23-2023 End: 05-05-2024 Alcoholic beverage intake Current drinker of alcohol (finding) [facility] Start: 11-23-2023 End: 05-05-2024 History of Social function [facility] Start: 11-23-2023 [facility] Start: 1965 Sex assigned at Not on file C [facility] Adult Depression Screening Assessment 2 [facility] History of tobacco use Current smoker [facility] History of tobacco use Cigarette Smoker N [facility] Start: 09-24-2023 Alcohol Comment wine or beer - a couple per month [facility] Start: 07-19-2024 End: 07-22-2024 Sex Female (finding) [facility] Goals Date Patient Goal Desired Activity /State Clinical Notes 07-24-2020 to 07-19-2024 Note Date & Type Note Facility 07-19-2024 Evaluation note Diagnosis Onset Date Resolution IBS (irritable bowel syndrome) acute July 19, 2024 1 0:05am [facility] Work Phone: 1(624) 151-926105-02-2025 NoteUT Cardiology - [facility] Subjective Essie Steele is a [...] sleep apnea 07/03/2023 CARLITO=9.5 events/hour; Leroy SpO2=84%; Olrctn=914.0 lbs; BMI=35.7 kg/m2, Home Sleep Apnea Testing on 07/01/2023 at [facility] Past Surgical History: Procedure Laterality Date [...] Obesity, BMI 35.4 kg/m??? (more content not included)...[facility]03-13-2025 History of Present illness Narrative* Wolf [...] Review Audit Reviewed by Vonnie Gillespie MA (Coining Press Operator) on 05/05/24 at 1429 Medication Order Taking? Sig Documenting Provider Last Dose Status aspirin 81 MG EC tablet [id number] Take 81 mg by mouth Daily Lester Harrell DPM Active celecoxib (CeleBREX) 100 MG capsule [id number] Take 100 mg by mouth in the morning and 100 mg before bedtime. Wolf Medley MD Active desvenlafaxine (Pristiq) 100 MG 24 hr tablet [id number] Take 100 mg by mouth Daily Lester Harrell DPM Active Discontinued 05/05/24 1428 dilTIAZem CD (Cardizem CD) 240 MG 24 hr capsule [id number] Take 240 mg by mouth Daily Wolf Medley MD Active Discontinued 05/05/24 1428 Multiple Vitamins-Minerals (CENTRUM SILVER PO) [id number] Take 1 tablet by mouth Daily Lester Harrell DPM Active pantoprazole (ProtoNix) 40 MG EC tablet [id number] Take 40 mg by mouth in the [...] Print requisition? Answer: Yes documented in this encounterSaint Joseph Health [id number] Telephone encounter Note* Telephone Encounter - Annika Cruz - 02/29/2024 3:46 PM EST 11/23/2023 03/14/2024 Patient phones requesting refills as follows: Requested Prescriptions Pending Prescriptions Disp Refills estradiol (VIVELLE-DOT) 0.0375 mg/24 hr patch 30 Patch 1 Sig: Apply 1 Patch as directed two times a week. Please review and advise. [facility]01-06-2025 Miscellaneous Notes* Telephone Encounter - Annika Cruz - 02/29/2024 3:46 PM EST 11/23/2023 03/14/2024 Patient phones requesting refills as follows: Requested Prescriptions Pending Prescriptions Disp Refills estradiol (VIVELLE-DOT) 0.0375 mg/24 hr patch 30 Patch 1 Sig: Apply 1 Patch as directed two times a week. Please review and advise. documented in this encounterBet[facility]01-[facility]-2025 Telephone encounter Note * Telephone Encounter - [...] Open Future (Single Instance) Lab Orders None [facility]01-06-2025 Miscellaneous Notes* Telephone Encounter - Kori Banks [...] Instance) Lab Orders None documented in this encounterBethesda North Hospital12-16-2024 History of Present illness Narrative* Renny Baron MD - 02/08/2024 9:30 AM EST Images from the original note were not included. VIRTUAL VISIT PROGRESS NOTE This is a virtual visit using [employer] Zoom Video Visit. It required patient- provider interaction for the medical decision making as documented below. I have communicated my name and active licensure. The patient's identity and physical location wereverified at the time of this visit. Either the patient or their legal sales promotion representative has been informed of the risks [...] AI <0.2 Sm Antibody Negative Negative Ribosomal FABRIC SEPARATOR OPERATOR Ab <1.0 AI <0.2 Ribosomal FABRIC SEPARATOR OPERATOR Qualitative Negative Negative Chromatin Ab <1.0 AI <0.2 Chromatin Ab Qual Negative Negative SSA Antibody Qual Negative Negative Anti-SSA <1.0 AI <0.2 Anti-SSB <1.0 AI <0.2 FABRIC SEPARATOR OPERATOR Antibody QUAL Negative Negative Scleroderma Ab Qual [...] will get this at [facility] - If not improved, then CSI [...] the date of the service which included [id number] patient care, completing clinical documentation, and communicating results to the patient/family/caregiver Renny Baron MD documented in this encounterBethesda North Hospital12-16-2024 NoteHNO ID: [id number] Author: RENNY BARON MD Service: ? Author Type: Physician Type: Progress Notes Filed: 02/08/2024 09:59 Note Text: VIRTUAL VISIT PROGRESS NOTE This is a virtual visit using [employer] Video Visit. It required patient-provider interaction for the medical decision making as documented below. I have communicated my name and active licensure. The patient's identity and physical location were verified at the time of this visit. Either the patient or their legal sales promotion representative has been informed of the risks [...] No data to dis (more content not included)...[facility] 01-20-2024 Telephone encounter Note* Telephone Encounter - Kori Banks RN - 01/20/2024 11:37 AM EST Spoke with pt and confirmed she would [place] [address]. Called [facility] outpatient radiology dept and obtained fax number of [phone]. X-ray orders from 01/18/2024 faxed with confirmation of fax receipt received. Advised pt to please let us know once x-rays are completed, so that we can ensure that we received the results. Pt verbalized understanding. [facility]11-27-2024 Miscellaneous Notes* Telephone Encounter - Kori Banks RN - 01/20/2024 11:37 AM EST Spoke with pt and confirmed she would like x-ray orders faxed to [place] [id number]. Called [facility] [place] outpatient radiology dept and obtained fax number of [phone]. X-ray orders from 01/18/2024 faxed with confirmation of fax receipt received. Advised pt to please let us know once x-rays are completed, so that we can ensure that we received the results. Pt verbalized understanding. documented in this encounterBethesda North Hospital11-25-2024 History of Present illness Narrative* Renny Baron MD - 01/18/2024 10:00 AM EST Images from the original note were not included. Rheumatology CONSULTATION Date of Service: 01/18/2024 Patient: Essie Steele Primary Care Physician: Brett Paniagua ([place], [place]) Last Rheumatology visit: None at [facility] Referring Provider: Kristy Evangelista [address] [facility] [address] Essie Steele is here today at request of Dr. Evangelista specifically for consultation of my opinion in regards to the chief complaint listed below. Correspondence will be shared today via the [employer] electronic health record or through regular mail, [...] XR HAND 2V PA/LAT BILATERAL XR SHOULDER [id number] AP/TRUE AP RIGHT XR SHOULDER LIMITED 2V [...] which included preparing to see the patient, [id number] patient care, completing clinical documentation, obtaining and/or reviewing separately obtained history, performing a medically appropriate examination, counseling and educating the pat ient/family/caregiver, ordering medications, tests, or procedures, and communicating results to thepatient/family/caregiver. Renny Baron MD PhD Rheumatology documented in this encounterBethesda North Hospital11-25-2024 NoteHNO ID: [id number] Author: RENNY BARON MD Service: ? Author Type: Physician Type: Progress Notes Filed: 01/18/2024 18:39 Note Text: Rheumatology CONSULTATION Date of Service: 01/18/2024 Patient: Essie Steele Primary Care Physician: Brett Paniagua ([place], [place]) Last Rheumatology visit: None at [facility] Referring Provider: Kristy Evangelista [address] [facility] [address] Essie Steele is here today at request of Dr. Evangelista specifically for consultation of my opinion in regards to the chief complaint listed below. Correspondence will be shared today via the [facility] electronic health record or through regular mail, [...] HERNANDEZ with going u (more content not included)...[facility] 01-18-2024 History of Present illness Narrative* Florencia [...] PATIENT PRESENTS WITH AN IMPLANTABLE OR ATTACHED PIPE BLANKS CUT OFF SAW OPERATOR: No RADIOLOGY DEPARTMENT: Bone Density PERIPHERAL IV DATA: Not applicable SIGNED BY: RT Sammy([place]) January 18, 2024 8:58 AM documented in this encounterBethesda North Hospital11-25-2024 NoteHNO ID: [id number] Author: FLORENCIA CALDERON RT(R) Service: ? Author [...] PATIENT PRESENTS WITH AN IMPLANTABLE OR ATTACHED PIPE BLANKS CUT OFF SAW OPERATOR: No RADIOLOGY DEPARTMENT: Bone Density PERIPHERAL IV DATA: Not applicable SIGNED BY: RT Sammy(R) January 18, 2024 8:58 [facility]10-09-2024 NoteCardiovascular Medicine [facility] SUBJECTIVE Chief Complaint Patient presents with [...] had follow up for titration study. Seeing CRIME INVESTIGATOR SPECIAL AGENT for night sweats, achy joints, issues with [...] sleep apnea 07/03/2023 CARLITO=9.5 events/hour; Leroy SpO2=84%; Ucyreg=029.0 lbs; BMI=35.7 kg/m2, Home Sleep Apnea Testing on 07/01/2023 at [facility] Family History Problem Relation Name Age [...] tachycardia) (CMS/HCC) Elevated blood pressure reading PAF -[id number] = 1 (female) -Dr. Ramirez noted a [...] (around 06/01/2024). Susanne Paz NP [facility] Note Patient here for 6 mo [...] pain. All other systems reviewed and are negative.[facility] 11-23-2023 Instructions* Patient Instructions* Kristy Evangelista [...] your usual activities immediately. documented in this encounterBethesda North Hospital09-30-2024 History of Present illness Narrative* Kristy Evangelista [...] lost both of her sisters spends time confucianism work grandkids and books on tape dogs [...] thinks lining was too thick TAHBSO at [place] Dr Castro had an TVUS and revealed [...] Denies prior Bx.Last mammo 4-6 wks at [facility]. BONE: Denies FMH OP/fx. No PMH [...] DISEASE Kristy Evangelista M.D.,F.A.C.P. documented in this encounterBethesda North Hospital09-30-2024 NoteHNO ID: [id number] Author: KRISTY EVANGELISTA MD Service: ? Author [...] lost both of her sisters spends time confucianism work grandkids and books on tape dogs [...] thinks lining was too thick TAHBSO at [place] Dr Castro had an TVUS and revealed [...] prior Bx. Last mammo 4-6 wks at [facility]. BONE: Denies FMH OP/fx. No PMH [...] atrial fibrillation (HC (more content not included)... [facility]08-01-2024 History of Present illness Narrative* Lester Harrell, [...] with 0 degrees dorsiflexion. SHOE GEAR EVALUATION: InOpen athletic shoes. Imaging: Foot X-ray: 09-24-2023: Right [...] 2-3 weeks for recheck. documented in this encounterSaint Joseph Health CenterDofwabxjet28-17-2319 NoteEpworth Sleepiness Scale Please rate the following [...] sleep... Acting out your dreams... Difficulty ambulating... Incontinence...[facility]05-08-2024 NotePt given verbal and written instructions and demo of HSAT device. Pt to return unit to registration 07/02 Quality of life Answer each question by shading in the grayling completely. Choose only one answer for each [...] 70 75 80 85 90 95 100 [facility]08-15-2023 Evaluation note* Encounter Date Diagnosis Assessment Notes Treatment Notes Treatment Clinical Notes Sep, GERD without esophagitis (ICD-10 - K21.9) Sep, Irritable bowel syndrome with diarrhea (ICD-10 - K58.0) Sep, Other Patient still having diarrhea and cramping in the lower abd area. Patient reports having these episodes at least one time weekly. Patient can restart dicyclomine 20mg TID PRN. [facility] Other 07-07-2022 Evaluation note* Encounter Date Diagnosis Assessment Notes Treatment Notes Treatment Clinical Notes Aug, Crohns disease (ICD- 10 - K50.90) 07 Aug, 2021 Viral gastroenteriti s (ICD-10 - A08.4) Continue prednisone as prescribed by PCP Start Cipro 500mg bid for 7 days Patient to call when she finished prednisone and cipro if symptoms do not improve. Follow up in 4 weeks. [facility] Other 06-01-2021 History general Narrative - Reported* Type Description Date Medical History Crohns disease Surgical History C section X2 Surgical History hysterectomy 07/2020 [facility] Other Evaluation + Plan note No data available for this section [facility] [place] Evaluation noteNo Assessments Information Available [facility] Diagnosis Symptomatic menopausal or [...] unspecified, site unspecified documented [facility] this encounter [facility]* Diagnosis Encounter for long-term (current) use of medications- Primary Encounter for long-term (current) use of other medications Crohn's disease of large intestine without complication (HCC) Regional enteritis of large intestine Arthritis Arthropathy, unspecified, site unspecified Enthesitis Enthesopathy of unspecified site Arthralgia, unspecified joint documented in this encounter [facility]* Diagnosis Symptomatic menopausal or female climacteric states documented [facility] this encounter [facility]* Diagnosis Arthralgia, unspecified joint- Primary Enthesitis Enthesopathy of unspecified site Encounter for long-term (current) use of medications Encounter for long-term (current) use of other medications Carpal tunnel syndrome of left wrist Carpal tunnel syndrome Positive KAELA (antinuclear antibody) Other and unspecified nonspecific immunological findings [facility] Pain of right foot- Primary Pain of right heel Pain of left foot Pain of left heel Bilateral plantar fasciitis documented [facility] this encounter [facility]* Diagnosis Well woman exam with routine gynecological exam Routine gynecological examination Cervical cancer screening Screening for malignant neoplasm of the cervix Screening for HPV (human papillomavirus) Special screening examination for human papillomavirus (HPV) documented [facility] noteNo assessment information availableChildren[facility] Work Phone: Hospital Discharge instructions No data available for this section [facility] [place] Progress note No data available for this section [facility] [place] Reason for referral (narrative)* Diagnostic Procedure Only (Routine) - Closed Specialty Diagnoses / Procedures Referred By Contac t Referred To Contact XR IMAGING Diagnoses Symptomatic menopausal or female climacteric states Procedures DXA-AXIAL SKELETON DXA BONE DENSITY STUDY 1/> SITES AXIAL Kristy Jacobson MD [address] [id number] [facility] [place] [address] Referral ID Status Reason Start Date Expiration Date V isits Requested Visits Authorized [id number] Closed Auto-Generate d Referral 11/23/2023 12/22/2024 1 1 [facility] for visit Narrative* Diagnostic Procedure Only (Routine) - Closed Specialty Diagnoses / Procedures Referred By Contac t Referred To Contact XR IMAGING Diagnoses Symptomatic menopausal or female climacteric states Procedures DXA-AXIAL SKELETON DXA BONE DENSITY STUDY 1/> SITES AXIAL Kristy Jacobson MD [address] [place] [address] [place] [address] Referral ID Status Reason Start Date Expiration Date V isits Requested Visits Authorized [id number] Closed Auto-Generate d Referral 11/23/2023 12/22/2024 1 1 [facility] Summary Purpose Family History No Family [...] COMPLEX 45 MINS Renny Baron MD [address] [place] [address] [facility] [place] [address] [place] [address] Referral ID Status Reason Start Date Expiration Date Visits Requested Visits Authorized [id number] Pending Review Auto-Generat ed Referral 4 01/17/2025 1 1 Specialty Diagnoses / Procedures Referred By Contac t Referred To Contact XR IMAGING Diagnoses Arthritis Procedures XR SHOULDER LIMITED 2V AP/TRUE AP LEFT RADEX SHOULDER COMPLETE MINIMUM 2 VIEWS Renny Baron MD [address] [place] [address] Xr Imaging [facility] Referral ID Status Reason Start Date Expiration Date Visits Requested Visits Authorized [id number] New Request Auto-Generat ed Referral 4 02/16/2025 1 1 Specialty Diagnoses / Procedures Referred By Contac t Referred To Contact XR IMAGING Diagnoses Arthritis Procedures XR SHOULDER [id number] AP/TRUE AP RIGHT RADEX SHOULDER COMPLETE MINIMUM 2 VIEWS Renny Baron MD [address] [place] [address] Xr Imaging [facility] Referral ID Status Reason Start Date Expiration Date Visits Requested Visits Authorized [id number] New Request Auto-Generat ed Referral 4 02/16/2025 1 1 Specialty Diagnoses / Procedures Referred By Contac t Referred To Contact XR IMAGING Diagnoses Arthritis Procedures XR HAND 2V PA/LAT BILATERAL RADEX HAND 2 VIEWS Renny Baron MD [address] [place] [address] Xr Imaging [place] [address] Referral ID Status Reason Start Date Expiration Date Visits Requested Visits Authorized [id number] New Request Auto-Generat ed Referral 02/16/2025 1 1 Specialty Diagnoses / Procedures Referred By Contac t Referred To Contact XR IMAGING Diagnoses Arthritis Procedures XR SACROILIAC JOINTS 2V AP PELVIS/FERGUESON RADIOLOGIC EXAMINATION SACROILIAC JNTS <3 VIEWS Renny Baron MD [address] [place] [address] Xr Imaging [place] [address] Referral ID Status Reason Start Date Expiration Date Visits Requested Visits Authorized [id number] New Request Auto-Generat ed Referral 02/16/2025 1 1 Specialty Diagnoses / Procedures Referred By Contac t Referred To Contact Rheumatology Diagnoses Crohn's disease of large intestine without complication (HCC) Arthritis Procedures CONSULT TO RHEUM/IMMUN DISEASE OFFICE/OUTPATIENT [facility] 60 MINUTES Kristy Evangelista MD [address] [place] [id number] Referral ID Status Reason Start Date Expiration Date Visits Requested Visits Authorized [id number] Authorized PCP Requested Referral 11/23/2023 11/22/2024 1 1 Specialty Diagnoses / Procedures Referred By Contac t Referred To Contact XR IMAGING Diagnoses Symptomatic menopausal or female climacteric states Procedures DXA-AXIAL SKELETON DXA BONE DENSITY STUDY 1/> SITES AXIAL SKEL Kristy Evangelista MD [address] [facility] [address] Xr Imaging [facility] Referral ID Status Reason Start Date Expiration Date Visits Requested Visits Authorized [id number] Authorized Auto-Generat ed Referral 11/23/2023 12/22/2024 1 1 Additional Source Comments INFORMATION SOURCE (unrecogn ized section and content) DATE CREATED AUTHOR 04/25/2018 Emy everett DATE CREATED AUTHOR AUTHOR'S ORGANIZ ATION 07/07/2022 [facility] DATE CREATED AUTHOR AUTHOR'S ORGANIZ ATION 02/10/2024 [facility] DATE CREATED AUTHOR AUTHOR'S ORGANIZ ATION 03/28/2024 Love Matth[facility] DATE CREATED AUTHOR AUTHOR'S ORGANIZ ATION 05/08/2024 [facility] DATE CREATED AUTHOR AUTHOR'S ORGANIZ ATION 06/29/2024 [facility] DATE CREATED AUTHOR AUTHOR'S ORGANIZ ATION 07/23/2024 [facility] REASON FOR VISIT (unrecogniz ed section and content) Reason Comments Joint Pain Specialty Diagnoses / Procedures Referred By Contac t Referred To Contact Rheumatology Diagnoses Crohn's disease of large intestine without complication (HCC) Arthritis Procedures CONSULT TO RHEUM/IMMUN DISEASE OFFICE/OUTPATIENT [facility] 60 MINUTES Kristy Evangelista MD [address] [place] [address] Referral ID Status Reason Start Date Expiration Date V isits Requested Visits Authorized [id number] Closed PCP Requested Referral 11/23/2023 11/22/2024 1 [...] or prosecute any alcohol or drug abuse patient.[facility] the event this information is protected by the Federal Confidentiality of Alcohol and Drug Abuse Patient Records regulations: The Federal rules restrict any use of the information to criminally investigate or prosecute any alcohol or drug abuse patient.[facility] the event this information is protected by the Federal Confidentiality of Alcohol and Drug Abuse Patient Records regulations: The Federal rules restrict any use of the information to criminally investigate or prosecute any alcohol or drug abuse patient.[facility] the event this information is protected by the Federal Confidentiality of Alcohol and Drug Abuse Patient Records regulations: The Federal rules restrict any use of the information to criminally investigate or prosecute any alcohol or drug abuse patient.[facility] the event this information is protected by the Federal Confidentiality of Alcohol and Drug Abuse Patient Records regulations: The Federal rules restrict any use of the information to criminally investigate or prosecute any alcohol or drug abuse patient.[facility] Hospital[facility] the event this information is protected by the Federal Confidentiality of Alcohol and Drug Abuse Patient Records regulations: The Federal rules restrict any use of the information to criminally investigate or prosecute any alcohol or drug abuse patient.[facility] Hospital[facility] the event this information is protected by the Federal Confidentiality of Alcohol and Drug Abuse Patient Records regulations: The Federal rules restrict any use of the information to criminally investigate or prosecute any alcohol or drug abuse patient.[facility] Hospital[facility] the event this information is protected by the Federal Confidentiality of Alcohol and Drug Abuse Patient Records regulations: The Federal rules restrict any use of the information to criminally investigate or prosecute any alcohol or drug abuse patient.[facility] Hospital[facility] the event this information is protected by the Federal Confidentiality of Alcohol and Drug Abuse Patient Records regulations: The Federal rules restrict any use of the information to criminally investigate or prosecute any alcohol or drug abuse patient.[facility] Patient Care team informatio n (unrecognized section and content) Door Assembler Relationship Specialty Start Date End Date Brett Paniagua MD [address] [place] [address] PCP - General Family Medicine 09/24/23 Door Assembler Relationship Specialty Start Date End Date Brett Paniagua MD [address] [facility] [place] [address] PCP - General Family Medicine 09/24/23 Team [...] BE BASED ON THE PRIMARY CLINICAL RECORDS. [facility] [employer] [facility]. provides no warranty or guarantee of the accuracy or completeness of information in this document.
== END 2024-09-23 14:45 | disposition home or self-care (01) ==
PROVIDERS: PCP Family Medicine; Visit Provider Family Medicine
DX: R09.1 Pleurisy (principal)
CPT/HCPCS: 71046

== ENCOUNTER 2024-11-16 10:29 | Outpatient (OUT) | payer OTHER, SELFPAY ==
--- OUTSIDE RECORDS SUMMARY | 2024-09-26 07:30 | XMS_ITS ---
Author Organization [facility] in [place] Address [address] [place] [address] Care Team Providers Care Quality Assurance Practice Manager Name Role Phone KAYY PANIAGUA Primary Care Provider [phone] Benji Paniagua [phone] REASON FOR VISIT f/u Encounters Encounter Location Date Provider Diagnosis [facility] [address] [place] [address] 09/26/2024 Benji Paniagua Plan Of Treatment No Information Progress Notes * Malu STEELEDOB: 6 (59 yo F)Acc No.[id number]:09/26/2024 UNLOCKED PROGRESS NOTE Progress Note Patient: Malu ROMANO Provider: Merced Paniagua MD (TTC) :1965 A ge:59 Y S ex:Female Date:09/26/2024 Address:[address] [place], [place] [id number] Pcp:KAYY PANIAGUA Subjective: * Chief Complaints: * 1 . F/u. * Medical History: Objective: * Vitals: Assessment: Plan: * Treatment: * * Electronic signature of Benji Paniagua MD, [phone] on 11/16/2024 at 10:35 AM EDT Sign off status: Pending Visit Status: C ANC (Cancelled) * Provider: Merced Paniagua MD (TTC) Date: 0 09/26/2024 Generated for Naima maurice/Gisele/Nikoleitting on: 0 11/16/2024 10:35 AM EDT
--- OUTSIDE RECORDS SUMMARY | 2024-10-12 04:30 | XMS_ITS ---
Author Organization [facility] in [place] Address [address] [place] [address] Care Team Providers Care Diet Aid Name Role Phone KAYY MADRID Primary Care Provider Owen Busby Unavailable [phone] REASON FOR VISIT 3m F/U - LOAN Encounters Encounter Location Date Provider Diagnosis [facility] [place] [address] [place] [address] 10/12/2024 Owen Busby Plan Of Treatment No Information Progress Notes * STEELE, TammyDOB: 6 (59 yo F)Acc No.[id number]:10/12/2024 UNLOCKED PROGRESS NOTE Follow Up Patient: Malu ROMANO Provider: Latonia Busby DO :1965 A ge:59 Y S ex:Female Date:10/12/2024 Address:[address] [place], [place] [phone] Pcp:KAYY MADRID Subjective: * Chief Complaints: * 1 . 3m F/U - LOAN. * Medical History: Objective: * Vitals: Assessment: Plan: * Treatment: * * Electronic signature of Mariaelena Busby DO on 11/16/2024 at 10:35 AM EDT Sign off status: Pending Visit Status: O FF CANC (OFFICE CANCEL) * Provider: Latonia Busby DO Date: 0 10/12/2024 Generated for Printi ng/Faxing/eTransmitting on: 0 11/16/2024 10:35 AM EDT
--- OUTSIDE RECORDS SUMMARY | 2024-11-16 10:35 | XMS_ITS | Encounter Summary ---
Author Organization [facility] Address [address], [address] [place] [address] Care Team Providers Care School Superintendent Name Role Phone Brett Paniagua MD Primary Care Provider [phone] Reason for Visit * Reason Comments Medication Refill Encounter Details Date Type Department Care Team (Late st Contact Info) Description 03/18/2017 Refill [facility] [place] [address] [place] [phone] Arian Herrera MD [address] [facility] [address] [place] [address] Medication Refill Social History Tobacco [...] documented in this encounter Care Teams School Superintendent Relationship Specialty Start Date End Date Brett Paniagua MD [address] [place] [address] PCP - General Family Medicine 04/06/17 documented as of this encounter
--- OUTSIDE RECORDS SUMMARY | 2024-11-16 10:35 | XMS_ITS | Clinical Summary ---
Author Organization [facility] Address [address] [place] [address] Care Team Providers Care Heel Room Supervisor Name Role Phone Brett Paniagua MD Primary Care Provider [phone] Allergies Active Allergy Reactions Criticality Noted Date [...] 07/03/2023 Overview (09/24/2023): CARLITO=9.5 events/hour; Leroy SpO2=84%; Bldnqm=222.0 lbs; BMI=35.7 kg/m2, Home Sleep Apnea Testing on 07/01/2023 at [facility] Family History Medical History Relation Name [...] occur. Test Methodology: CANCELED [facility] Comment: The [employer] Maker was unable to read this specimen. Therefore a manual review was performed. Result canceled by the ancillary. HPV Aptima Negative Negative [facility] Comment: This nucleic acid amplification test detects fourteen high-risk HPV types (16,18,31,33,35,39,45,51,52,56,58,59,66,68) without differentiation. Vaginal Fluid 05/05/2024 05/06/2024 Narrative [facility] - 05/10/2024 1:07 PM EDT Performed at: - Lab[address] [id number] Wrong Address Clerk: Ghada Melo MD, Phone: [phone] Performed at: - [address] [id number] Wrong Address Clerk: Ghada Melo MD, Phone: [phone] Specimen Comment: No. of containers..01 ThinPrep Vial us Wolf Medley MD LAB BLOOD ORDERABLES Edited Re sult - Final [facility] from Last 3 Months or Most Recently Relevant to Health Maintenance Insurance [employer] [facility] Address: [facility] [address] [place] [address] Care Teams Heel Room Supervisor Relationship Specialty Start Date End Date Brett Paniagua MD PCP - General Family Medicine 09/24/23
--- OUTSIDE RECORDS SUMMARY | 2024-11-16 10:35 | XMS_ITS | Clinical Summary ---
Author Organization [facility] Address [address], [address] [place] [address] Care Team Providers Care Telephone Interceptor Operator Name Role Phone Brett Paniagua MD Primary Care Provider [phone] Allergies No known active allergies Medications Loratadine [...] file Insurance AENA [employer] A[employer] Care Teams Telephone Interceptor Operator Relationship Specialty Start Date End Date Brett Paniagua MD [address] [place] [phone] PCP - General Family Medicine 04/06/17
--- OUTSIDE RECORDS SUMMARY | 2024-11-16 10:35 | XMS_ITS | Clinical Summary ---
Author Organization [facility] Address [address] [place], [place] [id number] Care Team Providers Care Rehanger Name Role Phone Unavailable Primary Care Provider [...] is lower risk 7 01/18/2024 Data from: https://www.neighborhoodatlas.[facility]/. Last address used for calculation [address] [facility] 01/18/2024 Comments No Sex and Gender [...] - 8.0 g/dL 01/18/2024 8:14 PM EST [facility] Albumin 4.4 3.9 - 4.9 g/dL 01/18/2024 8:14 PM EST [facility] Calcium, Total 9.2 8.5 - 10.2 mg/dL 01/18/2024 8:14 PM EST [facility] Bilirubin, Total 0.4 0.2 - 1.3 mg/dL 01/18/2024 8:14 PM EST [facility] Alkaline Phosphatase 148(H) 34 - 123 U/L 01/18/2024 8:14 PM EST [facility] AST 25 13 - 35 U/L 01/18/2024 8:14 PM EST [facility] ALT 20 7 - 38 U/L 01/18/2024 8:14 PM EST [facility] Glucose 91 74 - 99 mg/dL 01/18/2024 8:14 PM EST [facility] Comment: The [place] Diabetes Association (ADA) provides guidance for cutoff [...] Standards of Medical Care in Diabetes 2016, [place] Diabetes Association. Diabetes Care. 2016.39(Suppl 1). BUN 12 7 - 21 mg/dL 01/18/2024 8:14 PM EST [facility] Creatinine 0.59 0.58 - 0.96 mg/dL 01/18/2024 8:14 PM EST [facility] Sodium 140 136 - 144 mmol/L 01/18/2024 8:14 PM EST [facility] Potassium 3.7 3.7 - 5.1 mmol/L 01/18/2024 8:14 PM EST [facility] Chloride 102 98 - 107 mmol/L 01/18/2024 8:14 PM EST [facility] CO2 26 22 - 30 mmol/L 01/18/2024 8:14 PM EST [facility] Anion Gap 12 8 - 15 mmol/L 01/18/2024 8:14 PM EST [facility] Estimated Glomerular Filtration Rate 105 >=60 mL/min/1.7 3m 01/18/2024 8:14 PM EST [facility] Comment:Estimated Glomerular Filtration Rate (eGFR) [...] us Renny Baron MD LABORATORY Final Result [facility] [address] [place] [address], * HEPATITIS C ANTIBODY IA WITH CONFIRMATION (01/18/2024 11:32 AM EST) Hep C Antibody IA Negative Negative 01/18/2024 6:12 PM EST [facility] Comment:The result suggests no evidence of active infection with Hepatitis C virus. Should recent infection be suspected, repeat testing may be considered 4-6 weeks after this draw. Blood BLOOD SPECIMEN / Unknown Venipuncture / Unknown 01/18/2024 11:32 AM EST 01/18/2024 11:33 AM EST us Renny Baron MD LABORATORY Final Result [facility] [address] [facility] [address] [place] [id number], from Last 3 Months or Most Recently Relevant to Health Maintenance Insurance AETNA
--- OUTSIDE RECORDS SUMMARY | 2024-11-16 10:35 | XMS_ITS | Encounter Summary ---
Author Organization [facility] Address [facility] [place] [address] Care Team Providers Care Groundwater Consultant Name Role Phone Unavailable Primary Care Provider Unavailabl e Source Comments In the event this information is protected by the Federal Confidentiality of Alcohol and Drug AbusePatient Records regulations: The Federal rules restrict any use of the information to criminally investigate or prosecute any alcohol or drug abuse patient.[facility] Encounter Details Date Type Department Care Team (Late st Contact Info) Description 01/14/2024 Patient [facility] -[address] [place] [id number] Julita Washington RPh At your next appointment, choose [facility]. Social History Tobacco Use Types [...] lower risk 7 01/18/2024 Data from: https://www.neighborhoodatlas.medicine.[facility]/. Last address used for calculation [address] [...]
--- OUTSIDE RECORDS SUMMARY | 2024-11-16 10:35 | XMS_ITS | Encounter Summary ---
Author Organization [facility] Address [address] [place], [place] [address] Care Team Providers Care Coronary Clinical Specialist Name Role Phone Unavailable Primary Care Provider Unavailabl e Source Comments In the event this information is protected by the Federal Confidentiality of Alcohol and Drug AbusePatient Records regulations: The Federal rules restrict any use of the information to criminally investigate or prosecute any alcohol or drug abuse patient.[facility] Reason for Referral * Consult, Test, Treat (Routine) - Authorized Specialty Diagnoses / Procedures Referred By Contac t Referred To Contact INTERNAL MEDICINE Diagnoses Elevated blood pressure reading without diagnosis of hypertension Procedures OFFICE/OUTPATIENT [facility] 60 MINUTES Zachary Miller MD [address] [place] [address] Phone: tel: fax: Internal Medicine [place] [phone] Phone: tel: Referral ID Status Reason Start Date Expiration Date Visits Requested Visits Authorized [id number] Authorized PCP Requested Referral 02/29/2024 02/28/2025 1 1 Reason for Visit * Reason Comments Patient Update Encounter Details Date Type Department Care Team (Late st Contact Info) Description 02/29/2024 Telephone [facility] [address] [place], [place] [phone] Zachary Miller MD [address] [place] [address] Patient Update Social History Tobacco Use Types [...] is lower risk 7 01/18/2024 Data from: https://www.neighborhoodatlas.medicine.[facility].edu/. Last address used for calculation [address] [facility] 01/18/2024 Comments No Sex and [...] documented in this encounter Plan of Treatment Scheduled Referrals Name Type Priority Associated Diagnoses Orde r Schedule ESTABLISH WITH PRIMARY CARE NEW PATIENT Referral Routine Elevated blood pressure reading without diagnosis of hypertension 1 Occurrences starting 02/29/2024 until 02/28/2025 documented as of this encounter Visit Diagnoses Diagnosis Elevated blood pressure reading without diagnosis of hypertension- Primary documented in this encounter
--- OUTSIDE RECORDS SUMMARY | 2024-11-16 10:35 | XMS_ITS | Encounter Summary ---
Author Organization [facility] Address [address] [place] [address] Care Team Providers Care Car Framer Name Role Phone Unavailable Primary Care Provider Unavailabl e Source Comments In the event this information is protected by the Federal Confidentiality of Alcohol and Drug AbusePatient Records regulations: The Federal rules restrict any use of the information to criminally investigate or prosecute any alcohol or drug abuse patient.[facility] Encounter Details Date Type Department Care Team (Late st Contact Info) Description 03/24/2024 Patient Msg Navigate [facility] [address] [place] [address] Provider, Dennise Establish with primary care Social [...] lower risk 7 01/18/2024 Data from: https://www.neighborhoodatlas.medicine.[facility].edu/. Last address used for calculation [address] [facility] 01/18/2024 Comments No Sex [...]
--- OUTSIDE RECORDS SUMMARY | 2024-11-16 10:35 | XMS_ITS | Encounter Summary ---
Author Organization [facility] Address [facility] [place] [address] Care Team Providers Care Optical Assistant Name Role Phone Unavailable Primary Care Provider Unavailabl e Source Comments In the event this information is protected by the Federal Confidentiality of Alcohol and Drug AbusePatient Records regulations: The Federal rules restrict any use of the information to criminally investigate or prosecute any alcohol or drug abuse patient.[facility] Encounter Details Date Type Department Care Team (Late st Contact Info) Description 03/08/2024 Patient [facility] [address] [place], [place] [phone] Provider, [facility] Internal medicine Social History Tobacco Use [...] [email or web address].[email or web address]/. Last address used for calculation [address] [facility] 01/18/2024 Comments No Sex and Gender Information Value Date Recorded Sex Assigned at Not on file Legal Sex Female 11:23 AM EDT Gender Identity Not on file Sexual Orientation Not on file documented as of this encounter Plan of Treatment Not on file documented as of this encounter Visit Diagnoses Not on filedocumented in this encounter
--- OUTSIDE RECORDS SUMMARY | 2024-11-16 10:36 | XMS_ITS | CCD ---
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 Name Role Phone ANTHONYMamtaADA Referring Unavailable BRETT PANIAGUA Primary Care Unavailable Nader Paniagua Primary Care Provider [phone] René Ly Attending Provider René Ly Unavailable [...] Unavailable Brett Paniagua MD Primary Care Provider Philippe Wise MD Attending Provider Philippe Wise Attending Unavailable Philippe Wise Admitting Unavailable Brett Paniagua Primary Care Unavailable Brett Paniagua MD Primary Care Provider Mar Stanton DO Attending Provider Allergies Allergy Classification Reported Allergen(s) Allergy Type Date of Onset Reaction(s) Facility (20 sources) Codeine; Translations: [CODEINE] Drug Allergy 9 GI Upset, Other: See Comments, GI intolerance [facility] (18 sources) Meperidine; Translations: [MEPERIDINE] Drug Allergy 1 Unknown, Vomiting, Vomiting (disorder) SafetyCertified Other (1 source) Codeine Drug Allergy [facility] Repository (2 sources) Meperidine; Translations: [Demerol] Drug Allergy [facility] Repository (1 source) Codeine Drug Allergy 5 [facility] Repository (1 source) Meperidine Drug Allergy 5 [facility] Repository Medications Current Medications Medication Drug Class(es) [...] aspirin 81 mg delayed release oral tablet (19 sources) Platelet Aggregation Inhibitor, Nonsteroidal Anti-inflammatory Drug Start: 07-19-2024 take 1 tablet by mouth once daily Aspirin (Adult Aspirin Regimen) 81 mg tablet,delayed release (DR/EC) Active 81 MG PO Daily July 19, 2024 12:00am Complies with drug therapy Start: 03-14-2024 take 1 tablet by rosario th once daily aspirin 81 mg Oral EC Tab 81 mg = 1 tab(s), Oral, Daily, Refills(s) 0 Start Date: 03/14/24 Status: Ordered celecoxib 100 mg oral capsule (14 sources) Nonsteroidal Anti-inflammatory Drug Start: 07-19-2024 take 1 capsule by mouth once daily Celecoxib 100 mg capsule Active 100 MG PO Daily July 19, 2024 12:00am Complies with drug therapy Start: 03-14-2024 take 1 capsule by mo [facility] twice daily CeleBREX 100 [...] Ordered Start: 11-02-2018 take 1 tablet by [facility] once daily, then take 1 tablet by mouth every twenty-four hours Desvenlafaxine Succinate (Pristiq) 25 mg Tablet Extended Release 24 Hr Active 25 MG PO Daily November 02, 2018 12:00am Complies with drug therapy Desvenlafaxine S uccinate ER Active dicyclomine hydrochloride 20 mg oral tablet (16 sources) Anticholinergic Start: 06-22-2020 Dicyclomine 20 mg tablet Active 20 MG PO As Directed June 22, 2020 12:00am Complies with drug therapy take 1 tablet by mouth twice sharon ly Dicyclomine HCl 20 MG TAKE 1 TABLET BY MOUTH TWICE A DAY Active 24 hr dilTIAZem hydrochloride 240 mg extended release oral capsule (20 sources) Calcium Channel José Miguel Start: 07-19-2024 take 1 capsule by mouth every twenty-four hours Diltiazem Hcl 240 mg capsule,extended release 24hr Active MG PO July 19, 2024 12:00am Complies with drug therapy Start: 07-19-2024 take 1 capsule by [facility] every twenty-four hours Diltiazem Hcl 240 mg capsule,extended release 24hr Active MG PO July 19, 2024 12:00am Start: 03-14-2024 take 1 tablet by rosario th once daily diltiazem 240 mg/24 hours oral tablet, extended release 240 mg = 1 tab(s), Oral, Daily, Refills(s) 0 Start Date: 03/14/24 Status: Ordered take 1 capsule by mo uth once daily, then take 1 capsule by mouth every twenty-four hours dilTIAZem CD (Cardizem CD) 240 MG 24 hr capsule Take 240 mg by mouth Daily Active End: 05-05-2024 take 1 capsule by mouth once daily, then take 1 capsule by mouth every twenty-four hours dilTIAZem CD (Cardizem CD) 180 MG 24 hr capsule Take 180 mg by mouth Daily 05/05/2024 Discontinued (Ineffective) doxepin hydrochloride 10 mg oral capsule (1 source) Tricyclic Antidepressant Start: 10-26-2024 take 1-2 capsules by mouth once at bedtime Doxepin 10 mg capsule Active 10 MG PO .COMPLEX 60 October 26, 2024 12:00am 10 mg orally 1-2 po q hs; Complies with drug therapy 84 hr estradiol 0.42731 mg/hr transdermal system (10 sources) Estrogen Start: 11-23-2023 End: 08-28-2024 estradiol (VIVELLE-DOT) 0.0375 mg/24 hr patch Apply 1 Patch as directed two times a week. 30 Patch 1 03/01/2024 08/28/2024 Active Estradiol Patch 0.0375 mg/24 hours twice weekly transdermal film, extended release (2 sources) Start: 03-14-2024 Estradiol Patch 0.0375 mg/24 hours twice weekly transdermal film, extended release 1 patch(es), TransDermal, MonThu, Refill(s) 0 Start Date: 03/14/24 Status: Ordered Excedrin Extra Strength (2 sources) Excedrin Extra Strength PRN Active Excedrin Extra S trength Active fluticasone propionate 0.05 mg/actuat metered dose nasal spray (13 sources) Corticosteroid Start: 11-02-2018 fluticasone (F LONASE) 50 mcg/actuation nasal spray once daily. 11/02/2018 Active Start: 11-02-2018 End: 07-19-2024 Fluticasone Propionate (Flon ase Allergy Relief) 50 mcg/actuation [place],Suspension Discontinued 1 SPRAY INTRANASAL Daily November 02, 2018 12:00am July 19, 2024 10:13am lisinopril 10 mg oral tablet (3 sources) Angiotensin Converting Enzyme Inhibitor Start: 07-19-2024 take 1 tablet by mouth once daily Lisinopril 10 mg tablet Active 10 MG PO Daily July 19, 2024 12:00am Complies with drug therapy 24 hr mesalamine 375 mg extended release oral capsule (4 sources) Aminosalicylate Start: 11-03-2018 End: 06-22-2020 take 1 capsule [...] MG PO Daily June 22, 2020 12:00am Complies with drug therapy Start: 05-31-2020 take 1 tablet by rosario th twice daily Pantoprazole [address] Tab 40 mg = 1 tab(s), Oral, BID, Refills(s) 0 Start Date: 03/14/24 Status: Ordered predniSONE (1 source) predniSONE Activ e Completed/Discontinued Medications Medication Drug Class(es) Dates Sig (Normalized) Sig (Original) calcium carbonate 1500 mg oral tablet (3 sources) Start: 06-22-2020 End: 07-19-2024 Calcium Carbonate 600 mg calcium (1,500 mg) tablet Discontinued 600 MG PO As Directed June 22, 2020 12:00am July 19, 2024 10:13am cholecalciferol 0.05 mg oral tablet (3 sources) Vitamin D Start: 06-22-2020 End: 07-19-2024 Cholecalciferol (Vitamin D3) 50 mcg (2,000 unit) tablet Discontinued 50 MCG PO As Directed June 22, 2020 12:00am July 19, 2024 10:13am loratadine 10 mg oral tablet (15 sources) Start: 11-02-2018 End: 10-26-2024 take 1 tablet by mouth once daily Loratadine (Claritin) 10 mg Tablet Discontinued 10 MG PO Daily November 02, 2018 12:00am October 26, 2024 3:28pm Claritin Active methylPREDNISolone (5 sources) Corticosteroid Start: 09-24-2023 End: 05-05-2024 methylPREDNISolone (Medrol Dospak) 4 MG tablets Indications: [...] qid Not-Taking topiramate 100 mg oral tablet (5 sources) Start: 11-02-2018 End: 07-19-2024 take 1 [...] [Mixed hyperlipidemia] Onset: 5 Chronic Esophageal disorders (19 sources) Gastroesophageal reflux disease; Translations: [Gastro-esophageal reflux [...] current use of drug therapy; Translations: [Other press tender long goods (current) drug therapy] 01-18-2024 Episodic Other aftercare (1 source) Other press tender long goods (current) drug therapy; Translations: [Encounter for long-term (current) use of medications] Onset: Episodic Other bone disease and musculoskeletal deformities (2 sources) Osteopenia 03-14-2024 Episodic Other congenital anomalies (5 sources) Congenital deformity of left toe; Translations: [Congenital deformity of feet, unspecified, left foot] Onset: 4 09-24-2023 Chronic Other congenital anomalies (5 sources) Congenital deformity of right toe; Translations: [Congenital deformity of feet, unspecified, right foot] Onset: 4 09-24-2023 Chronic Other connective tissue disease (2 [...] diarrhea Chronic Other gastrointestinal disorders (2 sources) Irritable bowel syndrome; Translations: [Irritable bowel syndrome [...] By: Daryn Diaz on 07-21-2024 Study report [facility] Main [address] [address] XRay Report Signed Patient: Essie Steele MR#: [id number] : 1965 Acct:[id number] Age/Sex: 59 / F ADM Date: 5 Loc: XD Room: Type: REG CLI Attending Dr: Philippe Wise MD Copies to: [...] Diaz M.D. 07/21/2024 5:51 PM Dictation Location: [place] [address] Transcribed By: [facility] 07/21/241750 Dictated By: Alek Diaz MD 07/21/241749 Signed By: 07/21/241750 [facility] Work Phone: XR KUBon 07-21-2024 [address]R [address] [facility] Main [address] [address] XRay Report Signed Patient: Essie Steele MR#: [id number] : 1965 Acct:[id number] Age/Sex: 59 / F ADM Date: 07/21/24 Loc: XD Room: Type: REG CLI Attending Dr: Philippe Wise MD Copies to: [...] 5:51 PM Dictation Location: [id number]-[id number] Transcribed By: [facility] 07/21/241750 Dictated By: Alek Diaz MD 07/21/241749 Signed By: 07/21/241750 Normal [facility] Office Visiton 06-24-2024 Follow-up visit [id number] SteeleEssie wilkins Christen 1965 F Date Provider Department Center 06/24/2024 [id number] FATIMA ASHWIN [facility] Family History Problem Relation Age of Onset COPD Mother Cancer Father Heart attack Mother's Brother Hypertension Maternal Grandmother Family Status - Relation Status Age at Mother Father Sister Alive Mother's Brother Maternal Grandmother Level of Service:75940 NE OFFICE/OUTPATIENT ESTABLISHED MOD MDM 30 MIN Reason for Visit and Comments: 6 month follow up [Other] Hypertension [412057] Atrial Fibrillation [80] Normal [facility] XR Foot - left 3 [facility] Imaging Result: 09-24-2023: Left foot x-rays, weightbearing AP/MO/LAT views, obtained today shows: 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 Narrowed 2nd, 3rd intermetatarsal spaces. Lateral view shows high medial longitudinal arch with increased calcaneal inclination angle, 1st metatarsal is elevated. 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 Lateral shows good medial longitudinal arch, slightly elevated with 1st metatarsal elevation though parallel with the 2nd. Area of heel pain shows no pathology small retrocalcaneal spur noted. Os peroneum noted. [facility] Study observation (narrative) [facility] BD DXA - AXIAL SKELETONon BD DXA [...] years, Gender: Female SCANNER INFORMATION: DXA Model: MyWants (S/N: [id number]) Date Scanned: 01/18/2024 9:08 AM CLINICAL HISTORY: [...] had a previous bone density in the [facility] or the previous bone density was performed on a different DXA machine (new, updated model or different location) within the [facility]. VERTEBRAL FRACTURE ASSESSMENT Not performed. [...] FOR MORE INFORMATION ABOUT DIAGNOSIS AND TREATMENT: [facility]osis [facility] Metabolic Bone Disease:? www.ccf.org/arthritis /osteo National Osteoporosis Foundation:? www.nof.org International Society of Clinical Densitometry www.iscd.org Cash Register Balancer: [id number] Transcribe Date/Time: Jan 18 2024 9:10A Dictated by : ALEC ARCE MD This examination was interpreted and the report reviewed and electronically signed by: ALEC ARCE MD on Jan 18 2024 9:59PM EST [id number] N -0.1 Normal [facility] BLOOD TB SCREENon 01-18-2024 M. tuberculosis tuberculin stim IFN-g Ql (Bld) Negative Normal [facility] Comment on above: Order Comment: Fernando villalobos Type: BLOOD SPECIMEN Ordering Facility: [facility] Address: [address] [place] [address] Performed By: #### I NFTBP #### [facility] CLIA [id number] [address] [place] [address] [place] MITOGEN MINUS NIL >9.97 Normal >=0.50 [facility] Comment on above: Order Comment: Fernando villalobos Type: BLOOD SPECIMEN Ordering Facility: [facility] Address: [address] [place] [address] Performed By: #### I NFTBP #### [facility] CLIA [id number] [address] [place] [address] [place] TB GAMMA INTERPRETATION Infection with M. tuberculosis complex is unlikely. If latent tuberculosis infection is highly suspected, a negative result does not rule out the infection. Specimens from immunocompromised patients and those <5 years of age may show false negative results. In case of a contact investigation, please repeat 8-12 weeks after a known exposure. Normal [facility] Comment on above: Order Comment: Speci men Type: BLOOD SPECIMEN Ordering Facility: [facility] Address: [address] [place] [address] Performed By: #### I NFTBP #### [facility] CLIA [id number] [address] [place] [address] [place] TB NIL 0.03 IU/mL Normal <=8.00 [facility] Comment on above: Order Comment: Speci men Type: BLOOD SPECIMEN Ordering Facility: [facility] Address: [address] [place] [address] Performed By: #### I NFTBP #### [facility] CLIA [id number] [address] [place] [address] [place] TB1 AG MINUS NIL 0.05 IU/mL Normal <0.35 [facility] Comment on above: Order Comment: Speci men Type: BLOOD SPECIMEN Ordering Facility: [facility] Address: [address] [place] [address] Performed By: #### I NFTBP #### [facility] CLIA [id number] [address] [place] [address] [place] TB2 AG MINUS NIL 0.02 IU/mL Normal <0.35 [facility] Comment on above: Order Comment: Speci men Type: BLOOD SPECIMEN Ordering Facility: [facility] Address: [address] [place] [address] Performed By: #### I NFTBP #### [facility] CLIA [id number] [address] [place] [address] [place] C-REACTIVE PROTEINon 024 CRP [Mass/Vol] 0.7 mg/dL NINF - 0.9 mg/dL [facility] C3 COMPLEMENTon 01-18-2024 Complement C3 [Mass/Vol] 158 mg/dL 86 - 166 mg/dL [facility] C3 SerPl-mCncon 01-18-2024 Complement C3 [Mass/Vol] 158 mg/dL Normal 86-166 [facility] Comment on above: Order Comment: Speci men Type: BLOOD SPECIMEN Ordering Facility: [facility] Address: [address] [place] [address] Performed By: #### 5 1775-5, 86736-2, 32618-6, 89416-0, 54805-5, 66645-2, 85830-5, 75160-1 #### [facility] CLIA [id number] [address] [place] [address] [place] C4 COMPLEMENTon 01-18-2024 Complement C4 [Mass/Vol] 28 mg/dL 13 - 46 mg/dL [facility] C4 SerPl-mCncon 01-18-2024 Complement C4 [Mass/Vol] 28 mg/dL Normal 13-46 [facility] Comment on above: Order Comment: Speci men Type: BLOOD SPECIMEN Ordering Facility: [facility] Address: [address] [place] [address] Performed By: #### 5 1775-5, 39344-0, 38668-4, 15629-1, 18937-7, 53845-9, 54286-5, 95982-8 #### [facility] CLIA [id number] [address] [place] [address] [place] CBC W Auto Differential pane l (Bld)on 01-18-2024 Basophils (Bld) [#/Vol] 0.08 10*3/uL [facility] Basophils/100 WBC (Bld) 1.0 % [facility] Differential cell count method Nom (Bld) Auto [facility] Eosinophils (Bld) [#/Vol] 0.32 10*3/uL [facility] Eosinophils/100 WBC (Bld) 4.0 % [facility] Erythrocyte distribution width (RBC) [Ratio] 14.2 % 11.5 - 15.0 % [facility] Hematocrit (Bld) [Volume fraction] 40.8 % 36.0 - 46.0 % [facility] Hemoglobin (Bld) [Mass/Vol] 12.8 g/dL 11.5 - 15.5 g/dL [facility] Immature granulocytes (Bld) [#/Vol] 0.06 10*3/uL [facility] Immature granulocytes/100 WBC (Bld) 0.8 % [facility] Interpretation and review of laboratory results Abnormal [facility] Lymphocytes (Bld) [#/Vol] 1.99 10*3/uL [facility] Lymphocytes/100 WBC (Bld) 25.1 % [facility] MCH (RBC) [Entitic mass] 24.7 pg Low 26.0 - 34.0 pg [facility] MCHC (RBC) [Mass/Vol] 31.4 g/dL 30.5 - 36.0 g/dL [facility] MCV (RBC) [Entitic vol] 78.6 fL Low 80.0 - 100.0 fL [facility] Monocytes (Bld) [#/Vol] 0.54 10*3/uL [facility] Monocytes/100 WBC (Bld) 6.8 % [facility] Neutrophils (Bld) [#/Vol] 4.93 10*3/uL [facility] Neutrophils/100 WBC (Bld) 62.3 % [facility] Nucleated RBC (Bld) [#/Vol] [facility] Nucleated RBC/100 WBC (Bld) [Ratio] 0.0 % /100 WBC [facility] Platelet mean volume (Bld) [Entitic vol] 10.2 fL 9.0 - 12.7 fL [facility] Platelets (Bld) [#/Vol] 292 10*3/uL [facility] RBC (Bld) [#/Vol] 5.19 10*6/uL 3.90 - 5.2 0 m/uL [facility] WBC (Bld) [#/Vol] 7.92 10*3/uL [facility] Basophils (Bld) [#/Vol] 0.08 10*3/uL Normal <0.11 [facility] Comment on above: Order Comment: Speci men Type: BLOOD SPECIMEN Ordering Facility: [facility] Address: [address] [place] [address] Performed By: #### 5 1775-5, 13253-6, 45999-0, 17924-2, 18197-0, 04042-9, 79155-7, 15355-6 #### [facility] CLIA [id number] [address] [place] [address] [place] Basophils/100 WBC (Bld) 1.0 % Normal [facility] Comment on above: Order Comment: Speci men Type: BLOOD SPECIMEN Ordering Facility: [facility] Address: [address] [place] [address] Performed By: #### 5 1775-5, 19609-1, 36072-9, 13975-8, 44474-8, 82386-4, 84274-0, 56822-4 #### [facility] CLIA [id number] [address] [place] [address] [place] Differential cell count method Nom (Bld) Auto Normal [facility] Comment on above: Order Comment: Speci men Type: BLOOD SPECIMEN Ordering Facility: [facility] Address: [address] [place] [address] Performed By: #### 5 5-5, 88845-8, 48144-0, 64718-2, 51474-2, 72350-9, 06975-4, 93635-5 #### [facility] CLIA [id number] [address] [place] [address] [place] Eosinophils (Bld) [#/Vol] 0.32 10*3/uL Normal <0.46 [facility] Comment on above: Order Comment: Speci men Type: BLOOD SPECIMEN Ordering Facility: [facility] Address: [address] [place] [address] Performed By: #### 5 1775-5, 65187-0, 84744-7, 23315-0, 41329-9, 80746-3, 97454-4, 67032-0 #### [facility] CLIA [id number] [address] [place] [address] [place] Eosinophils/100 WBC (Bld) 4.0 % Normal [facility] Comment on above: Order Comment: Speci men Type: BLOOD SPECIMEN Ordering Facility: [facility] Address: [address] [place] [address] Performed By: #### 5 1775-5, 97377-5, 58694-2, 89226-7, 73952-3, 14804-9, 06789-5, 70457-4 #### [facility] CLIA [id number] [address] [place] [address] [place] Erythrocyte distribution width (RBC) [Ratio] 14.2 % Normal 11.5-15.0 [facility] Comment on above: Order Comment: Speci men Type: BLOOD SPECIMEN Ordering Facility: [facility] Address: [address] [place] [address] Performed By: #### 5 1775-5, 02669-2, 22470-5, 54212-9, 92642-8, 22916-6, 59581-8, 00031-3 #### [facility] CLIA [id number] [address] [place] [address] [place] Hematocrit (Bld) [Volume fraction] 40.8 % Normal 36.0-46.0 [facility] Comment on above: Order Comment: Speci men Type: BLOOD SPECIMEN Ordering Facility: [facility] Address: [address] [place] [address] Performed By: #### 5 5-5, 53541-3, 54555-5, 56037-6, 59756-4, 17723-0, 93732-7, 04849-3 #### [facility] CLIA [id number] [address] [place] [address] [place] Hemoglobin (Bld) [Mass/Vol] 12.8 g/dL Normal 11.5-15.5 [facility] Comment on above: Order Comment: Speci men Type: BLOOD SPECIMEN Ordering Facility: [facility] Address: [address] [place] [address] Performed By: #### 5 1775-5, 44458-2, 53698-0, 47961-7, 78091-1, 43035-5, 91711-6, 89930-1 #### [facility] CLIA [id number] [address] [place] [address] [place] Immature granulocytes (Bld) [#/Vol] 0.06 10*3/uL Normal <0.10 [facility] Comment on above: Order Comment: Speci men Type: BLOOD SPECIMEN Ordering Facility: [facility] Address: [address] [place] [address] Performed By: #### 5 1775-5, 90857-8, 46081-3, 05593-1, 42779-6, 42693-1, 25403-2, 15886-4 #### [facility] CLIA [id number] [address] [place] [address] [place] Immature granulocytes/100 WBC (Bld) 0.8 % Normal [facility] Comment on above: Order Comment: Speci men Type: BLOOD SPECIMEN Ordering Facility: [facility] Address: [address] [place] [address] Performed By: #### 5 1775-5, 29504-2, 93776-4, 81741-4, 17273-8, 26117-7, 79833-3, 98617-5 #### [facility] CLIA [id number] [address] [place] [address] [place] Lymphocytes (Bld) [#/Vol] 1.99 10*3/uL Normal 1.00-4.00 [facility] Comment on above: Order Comment: Speci men Type: BLOOD SPECIMEN Ordering Facility: [facility] Address: [address] [place] [address] Performed By: #### 5 1775-5, 54790-3, 41812-1, 30116-2, 52807-2, 37288-9, 51711-5, 47465-4 #### [facility] CLIA [id number] [address] [place] [address] [place] Lymphocytes/100 WBC (Bld) 25.1 % Normal [facility] Comment on above: Order Comment: Speci men Type: BLOOD SPECIMEN Ordering Facility: [facility] Address: [address] [place] [address] Performed By: #### 5 5-5, 57147-7, 44186-4, 75871-2, 09879-9, 65084-3, 16507-3, 49181-5 #### [facility] CLIA [id number] [address] [place] [address] [place] MCH (RBC) [Entitic mass] 24.7 pg Low 26.0-34.0 [facility] Comment on above: Order Comment: Speci men Type: BLOOD SPECIMEN Ordering Facility: [facility] Address: [address] [place] [address] Performed By: #### 5 1774-5, 41700-3, 85984-2, 39049-2, 81947-4, 44586-8, 30882-0, 56065-9 #### [facility] CLIA [id number] [address] [place] [address] [place] MCHC (RBC) [Mass/Vol] 31.4 g/dL Normal 30.5-36.0 [facility] Comment on above: Order Comment: Speci men Type: BLOOD SPECIMEN Ordering Facility: [facility] Address: [address] [place] [address] Performed By: #### 5 1774-5, 09087-2, 53514-0, 17813-4, 89178-9, 42129-7, 05205-1, 55161-4 #### [facility] CLIA [id number] [address] [place] [address] [place] MCV (RBC) [Entitic vol] 78.6 fL Low 80.0-100.0 [facility] Comment on above: Order Comment: Speci men Type: BLOOD SPECIMEN Ordering Facility: [facility] Address: [address] [place] [address] Performed By: #### 5 1774-5, 98916-2, 32867-7, 82956-2, 60540-0, 64395-8, 79880-9, 60051-8 #### [facility] CLIA [id number] [address] [place] [address] [place] Monocytes (Bld) [#/Vol] 0.54 10*3/uL Normal <0.87 [facility] Comment on above: Order Comment: Speci men Type: BLOOD SPECIMEN Ordering Facility: [facility] Address: [address] [place] [address] Performed By: #### 5 1775-5, 89384-9, 49976-8, 47373-5, 02178-4, 80999-6, 65077-1, 62663-4 #### [facility] CLIA [id number] [address] [place] [address] [place] Monocytes/100 WBC (Bld) 6.8 % Normal [facility] Comment on above: Order Comment: Speci men Type: BLOOD SPECIMEN Ordering Facility: [facility] Address: [address] [place] [address] Performed By: #### 5 1775-5, 01852-6, 06844-0, 36241-4, 74864-4, 34137-0, 73290-2, 00218-0 #### [facility] CLIA [id number] [address] [place] [address] [place] Neutrophils (Bld) [#/Vol] 4.93 10*3/uL Normal 1.45-7.50 [facility] Comment on above: Order Comment: Speci men Type: BLOOD SPECIMEN Ordering Facility: [facility] Address: [address] [place] [address] Performed By: #### 5 1775-5, 93110-6, 65805-8, 71292-1, 12360-4, 36826-6, 54241-8, 14423-9 #### [facility] CLIA [id number] [address] [id number] [address] [place] Neutrophils/100 WBC (Bld) 62.3 % Normal [facility] Comment on above: Order Comment: Speci men Type: BLOOD SPECIMEN Ordering Facility: [facility] Address: [address] [place] [address] Performed By: #### 5 1775-5, 81701-2, 95414-0, 45557-0, 23144-4, 89522-1, 28909-4, 33206-4 #### [facility] CLIA [id number] [address] [place] [address] [place] Nucleated RBC (Bld) [#/Vol] 10*3/uL Normal <0.01 [facility] Comment on above: Order Comment: Speci men Type: BLOOD SPECIMEN Ordering Facility: [facility] Address: [address] [place] [address] Performed By: #### 5 1775-5, 80140-8, 55886-7, 97859-9, 66892-6, 76313-0, 90352-2, 20305-4 #### [facility] CLIA [id number] [address] [place] [address] [place] Nucleated RBC/100 WBC (Bld) [Ratio] 0.0 /100 WBC Normal [facility] Comment on above: Order Comment: Speci men Type: BLOOD SPECIMEN Ordering Facility: [facility] Address: [address] [place] [address] Performed By: #### 5 1775-5, 79374-5, 82854-7, 82778-6, 65691-9, 23089-8, 90184-4, 83270-2 #### [facility] CLIA [id number] [address] [place] [address] [place] Platelet mean volume (Bld) [Entitic vol] 10.2 fL Normal 9.0-12.7 [facility] Comment on above: Order Comment: Speci men Type: BLOOD SPECIMEN Ordering Facility: [facility] Address: [address] [place] [address] Performed By: #### 5 1775-5, 63921-8, 27341-7, 02122-5, 54372-7, 26215-0, 67465-3, 84794-4 #### [facility] CLIA [id number] [address] [place] [address] [place] Platelets (Bld) [#/Vol] 292 10*3/uL Normal 150-400 [facility] Comment on above: Order Comment: Speci men Type: BLOOD SPECIMEN Ordering Facility: [facility] Address: [address] [place] [address] Performed By: #### 5 1775-5, 36178-6, 91696-1, 66396-8, 03906-4, 84679-2, 37779-7, 18707-8 #### [facility] CLIA [id number] [address] [place] [address] [place] RBC (Bld) [#/Vol] 5.19 10*6/uL Normal 3.90-5.20 [facility] Comment on above: Order Comment: Speci men Type: BLOOD SPECIMEN Ordering Facility: [facility] Address: [address] [place] [address] Performed By: #### 5 1775-5, 90093-5, 72303-4, 81596-1, 06608-9, 11143-5, 65750-9, 83253-9 #### [facility] CLIA [id number] [address] [place] [address] [place] WBC (Bld) [#/Vol] 7.92 10*3/uL Normal 3.70-11.00 [facility] Comment on above: Order Comment: Speci men Type: BLOOD SPECIMEN Ordering Facility: [facility] Address: [address] [place] [address] Performed By: #### 5 1775-5, 09384-8, 65648-6, 79892-5, 07971-1, 90551-5, 91965-9, 62894-3 #### [facility] CLIA [id number] [address] [place], [place] [address]K [id number] [place] [address] STATES OF [facility] CNOVon 01-18-2024 CNOV Office Visit (RHEUMN ) ESSIE STEELE ([id number]) 1965 F Date Time Provider Department 01/18/24 10:00 AM RENNY BARON During your visit today, we recorded the following information about you: Temperature Pulse Blood pressure Weight 97.2 degrees 68/minute 153/100 109.2 kg Height 1.689 m Renny Baron MD 01/18/2024 6:39 PM Signed Rheumatology CONSULTATION Date of Service: 01/18/2024 Patient: Essie Steele Primary Care Physician: Brett Paniagua ([place], [place]) Last Rheumatology visit: None at [facility] Referring Provider: Kristy Evangelista [address] [place] [address] Essie Steele is here today at request of Dr. Evangelista specifically for consultation of my opinion in regards to the chief complaint listed below. Correspondence will be shared today via the [facility] electronic health record or through regular [...] ) Review (more content not included)... Normal [facility] CRP SerPl-mCncon 01-18-2024 CRP [Mass/Vol] 0.7 mg/dL Normal <0.9 [facility] Comment on above: Order Comment: Specalysa villalobos Type: BLOOD SPECIMEN Ordering Facility: [facility] Address: [address] [place] [address] Performed By: #### 5 1775-5, 99991-7, 94692-8, 83757-3, 16063-4, 07658-2, 81091-4, 25710-5 #### [facility] CLIA [id number] [address] [place] [address] [place] [address] [place] Centromere Ab IF Ql (S)on Centromere Ab Qn (S) <0.2 Normal <1.0 [facility] Comment on above: Order Comment: Speci men Type: BLOOD SPECIMEN Ordering Facility: [facility] Address: [address] [place] [address] Result Comment: Anti -centromere antibody is used as in aid in diagnosis of systemic sclerosis. Clinical correlation is required. Test Methodology: Multiplex flow immunoassay. Performed By: #### 5 1775-5, 03037-2, 53905-0, 86450-3, 33588-4, 36094-1, 77010-9, 95735-5 #### [facility] CLIA [id number] [address] [place] [address] [place] CENTROMERE AB QUAL Negative Normal Negative [facility] Comment on above: Order Comment: Speci men Type: BLOOD SPECIMEN Ordering Facility: [facility] Address: [address] [place] [address] Performed By: #### 5 1775-5, 92176-2, 67042-8, 39415-5, 80444-4, 11264-2, 14189-8, 60335-9 #### [facility] CLIA [id number] [address] [place] [address] [place] Chromatin Ab Qnon 01-18-2024 CHROMATIN AB QUAL Negative Normal Negative [facility] Comment on above: Order Comment: Speci men Type: BLOOD SPECIMEN Ordering Facility: [facility] Address: [address] [place] [address] Performed By: #### 5 1775-5, 16945-0, 29267-7, 05615-6, 35948-9, 02427-5, 60888-0, 46100-5 #### [facility] CLIA [id number] [address] [place] [address] [place] Chromatin Ab SerPl-aCncon Chromatin Ab Qn <0.2 Normal <1.0 [facility] Comment on above: Order Comment: Speci men Type: BLOOD SPECIMEN Ordering Facility: [facility] Address: [address] [place] [address] Result Comment: Test Methodology: Multiplex flow immunoassay. Performed By: #### 5 1775-5, 33020-0, 98839-3, 29155-0, 83111-1, 24606-9, 23224-9, 40884-3 #### [facility] CLIA [id number] [address] [place] [address] [place] [facility] Comprehensive metabolic 2000 panelon 01-18-2024 Albumin [Mass/Vol] 4.4 g/dL 3.9 - 4.9 g/dL [facility] ALP [Catalytic activity/Vol] 148 U/L High 34 - 123 U/L [facility] ALT [Catalytic activity/Vol] 20 U/L 7 - 38 U/L [facility] Anion gap [Moles/Vol] 12 mmol/L 8 - 15 mmol/L [facility] AST [Catalytic activity/Vol] 25 U/L 13 - 35 U/L [facility] Bilirubin [Mass/Vol] 0.4 mg/dL 0.2 - 1 .3 mg/dL [facility] Calcium [Mass/Vol] 9.2 mg/dL 8.5 - 10. 2 mg/dL [facility] Chloride [Moles/Vol] 102 mmol/L 98 - 10 7 mmol/L [facility] CO2 [Moles/Vol] 26 mmol/L 22 - 30 mmol/L [facility] Creatinine [Mass/Vol] 0.59 mg/dL 0.58 - 0.96 mg/dL [facility] GFR/1.73 sq M.predicted among non-blacks MDRD (S/P/Bld) [Vol rate/Area] 105 mL/min/{1.73_m2} - PINF [facility] Comment on above: Estimated Glomerular [...] [Mass/Vol] 91 mg/dL 74 - 99 mg/dL [facility] Comment on above: The [place] Diabete s Association (ADA) provides guidance for [...] Standards of Medical Care in Diabetes 2016, [place] [employer] Association. Diabetes Care. 2016.39(Suppl 1). Interpretation and review of laboratory results Abnormal [facility] Potassium [Moles/Vol] 3.7 mmol/L 3.7 - 5.1 mmol/L [facility] Protein [Mass/Vol] 7.3 g/dL 6.3 - 8.0 g/dL [facility] Sodium [Moles/Vol] 140 mmol/L 136 - 144 mmol/L [facility] Urea nitrogen [Mass/Vol] 12 mg/dL 7 - 21 mg/dL [facility] Albumin [Mass/Vol] 4.4 g/dL Normal 3.9-4.9 [facility] Comment on above: Order Comment: Fernando villalobos Type: BLOOD SPECIMEN Ordering Facility: [facility] Address: [address] [place] [address] Performed By: #### 5 1775-5, 72791-7, 39256-0, 17335-7, 43340-1, 18634-0, 02065-0, 33839-3 #### [facility] CLIA [id number] [address] [place] [address] [place] ALP [Catalytic activity/Vol] 148 U/L High 34-123 [facility] Comment on above: Order Comment: Fernando villalobos Type: BLOOD SPECIMEN Ordering Facility: [facility] Address: [address] [place] [address] Performed By: #### 5 1775-5, 13235-5, 38640-9, 42912-5, 53808-9, 31549-6, 50977-8, 61556-6 #### [facility] CLIA [id number] [address] [place] [address] [place] ALT [Catalytic activity/Vol] 20 U/L Normal 7-38 [facility] Comment on above: Order Comment: Speci men Type: BLOOD SPECIMEN Ordering Facility: [facility] Address: [address] [place] [address] Performed By: #### 5 1775-5, 01390-7, 13865-3, 96606-5, 42697-3, 62792-2, 44571-8, 19745-6 #### [facility] CLIA [id number] [address] [place] [address] [place] Anion gap [Moles/Vol] 12 mmol/L Normal 8-15 [facility] Comment on above: Order Comment: Speci men Type: BLOOD SPECIMEN Ordering Facility: [facility] Address: [address] [place] [address] Performed By: #### 5 1775-5, 37621-9, 10730-6, 07427-5, 21372-8, 44198-9, 43833-8, 68994-6 #### [facility] CLIA [id number] [address] [place] [address] [place] AST [Catalytic activity/Vol] 25 U/L Normal 13-35 [facility] Comment on above: Order Comment: Speci men Type: BLOOD SPECIMEN Ordering Facility: [facility] Address: [address] [place] [address] Performed By: #### 5 1775-5, 69434-8, 61991-8, 21871-6, 09265-5, 08916-4, 49009-1, 52758-2 #### [facility] CLIA [id number] [address] [place] [address] [place] Bilirubin [Mass/Vol] 0.4 mg/dL Normal 0.2-1.3 [facility] Comment on above: Order Comment: Speci men Type: BLOOD SPECIMEN Ordering Facility: [facility] Address: [address] [place] [address] Performed By: #### 5 1775-5, 66613-3, 82752-1, 60746-3, 83113-0, 51627-6, 40370-6, 12942-7 #### [facility] CLIA [id number] [address] [place] [address] [place] Calcium [Mass/Vol] 9.2 mg/dL Normal 8.5-10.2 [facility] Comment on above: Order Comment: Speci men Type: BLOOD SPECIMEN Ordering Facility: [facility] Address: [address] [place] [address] Performed By: #### 5 1775-5, 63182-0, 27656-9, 45248-1, 99737-0, 58266-8, 39363-9, 68616-4 #### [facility] CLIA [id number] [address] [place] [address] [place] Chloride [Moles/Vol] 102 mmol/L Normal 98-107 [facility] Comment on above: Order Comment: Speci men Type: BLOOD SPECIMEN Ordering Facility: [facility] Address: [address] [place] [address] Performed By: #### 5 1775-5, 65021-7, 10999-0, 95274-2, 21896-3, 06385-1, 24001-9, 79789-0 #### [facility] CLIA [id number] [address] [place] [address] [place] CO2 [Moles/Vol] 26 mmol/L Normal 22-30 [facility] Comment on above: Order Comment: Speci men Type: BLOOD SPECIMEN Ordering Facility: [facility] Address: [address] [place] [address] Performed By: #### 5 1775-5, 57955-7, 67534-9, 50777-4, 76128-3, 94446-3, 38022-2, 39421-7 #### [facility] CLIA [id number] [address] [place] [address] [place] Creatinine [Mass/Vol] 0.59 mg/dL Normal 0.58-0.96 [facility] Comment on above: Order Comment: Fernando villalobos Type: BLOOD SPECIMEN Ordering Facility: [facility] Address: [address] [place] [address] Performed By: #### 5 1775-5, 76983-5, 30211-1, 32892-7, 46497-7, 11649-7, 21110-9, 13708-4 #### [facility] CLIA [id number] [address] [place] [address] [place] Creatinine and Glomerular filtration rate.predicted panel (S/P/Bld) 105 mL/min/1.73m??? Normal >=60 [facility] Comment on above: Order Comment: Fernando villalobos Type: BLOOD SPECIMEN Ordering Facility: [facility] Address: [address] [place] [address] Result Comment: Oanh mated Glomerular Filtration Rate [...] actual GFR. Performed By: #### 5 1775-5, 50422-0, 74522-8, 89897-9, 57434-6, 22514-3, 74477-7, 95513-0 #### [facility] CLIA [id number] [address] [place] [address] [place] Glucose [Mass/Vol] 91 mg/dL Normal 74-99 [facility] Comment on above: Order Comment: Fernando villalobos Type: BLOOD SPECIMEN Ordering Facility: [facility] Address: [address] [place] [address] Result Comment: The [place] Diabetes Association (ADA) provides guidance for cutoff [...] Standards of Medical Care in Diabetes 2016, [place] Diabetes Association. Diabetes Care. 2016.39(Suppl 1). Performed By: #### 5 1775-5, 76520-1, 25300-8, 93738-5, 78803-6, 80552-7, 78897-0, 55805-0 #### [facility] CLIA [id number] [address] [place] [address] [place] Potassium [Moles/Vol] 3.7 mmol/L Normal 3.7-5.1 [facility] Comment on above: Order Comment: Speci men Type: BLOOD SPECIMEN Ordering Facility: [facility] Address: [address] [place] [address] Performed By: #### 5 1775-5, 40442-7, 86869-2, 91307-6, 06547-8, 49947-4, 36867-8, 20953-6 #### [facility] CLIA [id number] [address] [place] [address] [place] Protein [Mass/Vol] 7.3 g/dL Normal 6.3-8.0 [facility] Comment on above: Order Comment: Speci men Type: BLOOD SPECIMEN Ordering Facility: [facility] Address: [address] [place] [address] Performed By: #### 5 1775-5, 41093-7, 11659-3, 86081-6, 01404-4, 04383-1, 27062-6, 07668-5 #### [facility] CLIA [id number] [address] [place] [address] [place] Sodium [Moles/Vol] 140 mmol/L Normal 136-144 [facility] Comment on above: Order Comment: Speci men Type: BLOOD SPECIMEN Ordering Facility: [facility] Address: [address] [place] [address] Performed By: #### 5 1775-5, 80249-4, 16417-7, 74758-7, 53855-9, 97443-2, 33200-2, 96299-9 #### [facility] CLIA [id number] [address] [place] [address] [place] Urea nitrogen [Mass/Vol] 12 mg/dL Normal 7-21 [facility] Comment on above: Order Comment: Speci men Type: BLOOD SPECIMEN Ordering Facility: [facility] Address: [address] [place] [address] Performed By: #### 5 1775-5, 85098-6, 99642-5, 85452-9, 48451-7, 95536-4, 05423-9, 00745-9 #### [facility] CLIA [id number] [address] [place] [address] [place] Cyclic citrullinated peptide IgG Qnon 01-18-2024 [facility] ANTIBODY IGG QUALITATIVE Negative Normal Negative [facility] Comment on above: Order Comment: Speci men Type: BLOOD SPECIMEN Ordering Facility: [facility] Address: [address] [place] [address] Performed By: #### 5 1775-5, 15592-6, 32064-4, 20748-4, 95820-3, 92494-0, 47844-6, 61911-3 #### [facility] CLIA [id number] [address] [place] [address] [place] DNA double strand Ab IA Qn ( S)on 01-18-2024 DNA ANTIBODY 29 IU/mL Normal <=200 [facility] Comment on above: Order Comment: Speci men Type: BLOOD SPECIMEN Ordering Facility: [facility] Address: [address] [place] [address] Result Comment: Nega tive: <200 IU/mL Equivocal: 201-300 IU/mL Moderate Positive: 301-800 IU/mL Strong Positive: >801 IU/mL Performed By: #### 5 1775-5, 54331-9, 55307-0, 05060-6, 37853-8, 74575-1, 63079-1, 47941-9 #### [facility] CLIA [id number] [address] [place] [address] OF [place] DNA ANTIBODY QUALITATIVE INTERPRETATION Negative Normal Negative [facility] Comment on above: Order Comment: Speci men Type: BLOOD SPECIMEN Ordering Facility: [facility] Address: [address] [place] [address] Performed By: #### 5 1775-5, 98161-2, 58799-8, 63090-6, 83621-0, 15516-2, 33655-2, 82399-4 #### [facility] CLIA [id number] [address] [place] [address] [place] DXA Skeletal system.axial Vi ews for bone densityOrdered By: [facility] Provider on 01-18-2024 LOWEST T-SCORE -0.1 [facility] DXA Skeletal system.axial Vi ews [...] FOR MORE INFORMATION ABOUT DIAGNOSIS AND TREATMENT: [facility]abolic Bone Disease:? www.ccf.org/arthritis /osteo National Osteoporosis Foundation:? www.nof.org International Society of Clinical Densitometry www.iscd.org Cash Register Balancer: [id number] Transcribe Date/Time: Jan 18 2024 9:10A Dictated by : ALEC ARCE MD This examination was interpreted and the report reviewed and electronically signed by: ALEC ARCE MD on Jan 18 2024 9:59PM [facility] * * *Final Report* * * DATE OF EXAM: Jan 18 2024 9:08AM [facility] [place] 0804 - BD DXA - AXIAL SKELETON / PROCEDURE REASON: Symptomatic menopausal or female climacteric states * * * * Physician Interpretation * * * * EXAMINATION: DXA BONE DENSITOMETRY BD DXA - AXIAL SKELETON PATIENT DEMOGRAPHICS: Age: 59 years, Gender: Female SCANNER INFORMATION: DXA Model: [employer] (S/N: [id number]) Date Scanned: 01/18/2024 9:08 AM CLINICAL HISTORY: [...] had a previous bone density in the [facility] or the previous bone density was performed on a different DXA machine (new, updated model or different location) within the [facility]. VERTEBRAL FRACTURE ASSESSMENT Not performed. TRABECULAR BONE ASSESSMENT TBS not performed: BMI outside recommended range for calculation of TBS. DIVISION OF RADIOLOGY Provider, [facility] Fabricio [place] - 01/18/2024 * * *Final Report* * * DATE OF EXAM: Jan 18 2024 9:08AM B 0804 - BD DXA - AXIAL SKELETON / PROCEDURE REASON: Symptomatic menopausal or female climacteric states * * * * Physician Interpretation * * * * EXAMINATION: DXA BONE DENSITOMETRY BD DXA - AXIAL SKELETON PATIENT DEMOGRAPHICS: Age: 59 years, Gender: Female SCANNER INFORMATION: DXA Model: [employer] (S/N: [id number]) Date Scanned: 01/18/2024 9:08 AM CLINICAL HISTORY: [...] had a previous bone density in the [facility] or the previous bone density was performed on a different DXA machine (new, updated model or different location) within the [facility]. VERTEBRAL FRACTURE ASSESSMENT Not performed. [...] FOR MORE INFORMATION ABOUT DIAGNOSIS AND TREATMENT: [facility]osis and Metabolic Bone Disease:? www.ccf.org/arthritis /osteo National Osteoporosis Foundation:? www.nof.org International Society of Clinical Densitometry www.iscd.org Cash Register Balancer: [id number] Transcribe Date/Time: Jan 18 2024 9:10A Dictated by : ALEC ARCE MD This examination was interpreted and the report reviewed and electronically signed by: ALEC ARCE MD on Jan 18 2024 9:59PM [facility] Study observation (narrative) [facility] GAYATRI Jo1 Ab Ser-aCncon 2023 Cyndi-1 extractable nuclear Ab Qn (S) <0.2 Normal <1.0 [facility] Comment on above: Order Comment: Speci men Type: BLOOD SPECIMEN Ordering Facility: [facility] Address: [address] [place] [address] Performed By: #### 5 1775-5, 74255-5, 82730-8, 87838-1, 44496-9, 26995-2, 55880-5, 37095-1 #### [facility] CLIA [id number] [address] [place] [address] [place] GAYATRI FIRE HOSE CURER Ab Ser-aCncon 2023 Ribonucleoprotein extractable nuclear Ab Qn (S) <0.2 Normal <1.0 [facility] Comment on above: Order Comment: Speci men Type: BLOOD SPECIMEN Ordering Facility: [facility] Address: [address] [place] [address] Performed By: #### 5 5-5, 07039-8, 10115-5, 63407-2, 01635-5, 27101-6, 57649-2, 80113-6 #### [facility] CLIA [id number] [address] [place] [address] [place] GAYATRI SM IgG Ser-aCncon 2023 [place] extractable nuclear IgG Qn (S) <0.2 Normal <1.0 [facility] Comment on above: Order Comment: Speci men Type: BLOOD SPECIMEN Ordering Facility: [facility] Address: [address] [place] [address] Performed By: #### 5 1775-5, 64656-8, 38943-2, 61489-6, 26065-0, 60366-3, 33197-4, 18323-9 #### [facility] CLIA [id number] [address] [place] [address] [place] GAYATRI SS-A Ab Ser-aCncon 01-17 Sjogrens syndrome-A extractable nuclear Ab Qn (S) <0.2 Normal <1.0 [facility] Comment on above: Order Comment: Speci men Type: BLOOD SPECIMEN Ordering Facility: [facility] Address: [address] [place] [address] Result Comment: Test Methodology: Multiplex flow immunoassay. Performed By: #### 5 1775-5, 39441-7, 61275-7, 28302-4, 53725-7, 01340-7, 77401-8, 33782-8 #### [facility] CLIA [id number] [address] [place] [address] [place] GAYATRI SS-B Ab Ser-aCncon 01-17 Sjogrens syndrome-B extractable nuclear Ab Qn (S) <0.2 Normal <1.0 [facility] Comment on above: Order Comment: Speci men Type: BLOOD SPECIMEN Ordering Facility: [facility] Address: [address] [place] [address] Result Comment: Anti -SSB (anti-La) antibody is used as an aid in diagnosis of a variety of systemic autoimmune diseases, especially for Sjogren's syndrome and systemic lupus erythematosus. Clinical correlation is required. Test Methodology: Multiplex flow immunoassay. Performed By: #### 5 1775-5, 21357-3, 97714-9, 55967-3, 87606-3, 28948-3, 28735-5, 30617-2 #### [facility] CLIA [id number] [address] [place] [address] [place] ESR Westergren method (Bld) [Velocity]on 01-18-2024 ESR (Bld) [Velocity] 12 mm/h [facility] Interpretation and review of laboratory results Normal [facility] ESR (Bld) [Velocity] 12 mm/h Normal 0-20 [facility] Comment on above: Order Comment: Fernando villalobos Type: BLOOD SPECIMEN Ordering Facility: [facility] Address: [address] [place] [address] Performed By: #### 5 1775-5, 09235-2, 13186-1, 60263-8, 36114-1, 89502-5, 84987-7, 84247-3 #### [facility] CLIA [id number] [address] [place] [address] [place] HBV core Ab Ser Qlon 024 HBV core Ab Ql (S) Negative Normal Negative [facility] Comment on above: Order Comment: Fernando villalobos Type: BLOOD SPECIMEN Ordering Facility: [facility] Address: [address] [place] [address] Result Comment: No e vidence of current or past infection with Hepatitis B virus. Should recent infection be suspected, repeat testing may be considered 3-4 weeks after this draw. Performed By: #### 5 1775-5, 00314-2, 18959-1, 46599-6, 06281-4, 98423-2, 99489-5, 07047-1 #### [facility] CLIA [id number] [address] [place] [address] [place] HBV surface Ab Ql (S)on 12-25 HBV surface Ab Qn (S) 120.75 mIU/mL Normal [facility] Comment on above: Order Comment: Fernando villalobos Type: BLOOD SPECIMEN Ordering Facility: [facility] Address: [address] [place] [address] Result Comment: <8 m IU/mL: No serological evidence of immunity to Hepatitis B Virus. >/= 8 to <12 mIU/mL: No serological evidence of immunity to Hepatitis B Virus. >/= 12 mIU/mL: Consistent with serological evidence of immunity to Hepatitis B Virus. Performed By: #### 5 1775-5, 43555-4, 38582-3, 54228-9, 94759-0, 34905-7, 05300-0, 87759-3 #### [facility] CLIA [id number] [address] [place] [address] [place] HBV surface Ab Ser Qlon 12-25 HBV surface Ab Ql (S) Positive Normal [facility] Comment on above: Order Comment: Speci men Type: BLOOD SPECIMEN Ordering Facility: [facility] Address: [address] [place] [address] Result Comment: Cons istent with serological evidence of immunity to Hepatitis B Virus. Performed By: #### 5 5-5, 20472-4, 86825-2, 67301-5, 30455-4, 19132-7, 80209-9, 69957-5 #### [facility] CLIA [id number] [address] [place] [address] [place] HBV surface Ag Ser Qlon 12-25 HBV surface Ag Ql (S) Negative Normal Negative [facility] Comment on above: Order Comment: Speci men Type: BLOOD SPECIMEN Ordering Facility: [facility] Address: [address] [place] [address] Performed By: #### 5 1774-5, 96808-0, 08377-0, 10124-4, 59774-7, 80511-8, 09491-5, 84847-3 #### [facility] CLIA [id number] [address] [place] [address] [place] HCV Ab Ser Qlon 01-18-2024 HCV Ab Ql (S) Negative Normal Negative [facility] Comment on above: Order Comment: Speci men Type: BLOOD SPECIMEN Ordering Facility: [facility] Address: [address] [place] [address] Result Comment: The result suggests no evidence of active infection with Hepatitis C virus. Should recent infection be suspected, repeat testing may be considered 4-6 weeks after this draw. Performed By: #### 5 1775-5, 18168-7, 03243-2, 92512-6, 54130-5, 53467-6, 21161-7, 82779-4 #### [facility] CLIA [id number] [address] [place] [address] [place] Cyndi-1 extractable nuclear Ab Qn (S)on 01-18-2024 CYNDI 1 ANTIBODY QUAL Negative Normal Negative [facility] Comment on above: Order Comment: Speci men Type: BLOOD SPECIMEN Ordering Facility: [facility] Address: [address] [place] [address] Result Comment: Anti -CYNDI-1 antibody is used as an aid in diagnosis of polymyositis and dermatomyositis especially with pulmonary involvement. A negative result cannot rule out polymyositis or dermatomyositis. Clinical correlation is required. Test Methodology: Multiplex flow immunoassay. Performed By: #### 5 1775-5, 32875-8, 58022-7, 20009-6, 12951-6, 29047-5, 12541-1, 14128-4 #### [facility] CLIA [id number] [address] [place] [address] [place] No Panel Informationon 01-17 Interpretation and review of laboratory results Normal [facility] RHEUMATOID FACTORon 01-18-20 24 Rheumatoid factor Qn 12 [IU]/mL NINF [facility] Rheumatoid fact SerPl-aCncon 01-18-2024 Rheumatoid factor Qn 12 [IU]/mL Normal <16 [facility] Comment on above: Order Comment: Speci men Type: BLOOD SPECIMEN Ordering Facility: [facility] Address: [address] [place] [address] Performed By: #### 5 1775-5, 78802-7, 70228-4, 56575-3, 22639-4, 87832-1, 69232-8, 30013-5 #### [facility] CLIA [id number] [address] [place] [address] [place] Rheumatoid factor Qnon 01-17 Interpretation and review of laboratory results Normal [facility] Ribonucleoprotein extractabl e nuclear Ab Qn (S)on 01-18-2024 ANTI-FIRE HOSE CURER QUAL Negative Normal Negative [facility] Comment on above: Order Comment: Fernando villalobos Type: BLOOD SPECIMEN Ordering Facility: [facility] Address: [address] [place] [address] Performed By: #### 5 1775-5, 52667-2, 07057-9, 46747-1, 54635-6, 86164-9, 54812-2, 46474-1 #### [facility] CLIA [id number] [address] [place] [address] [place] RIBOSOMAL FIRE HOSE CURER QUAL Negative Normal Negative [facility] Comment on above: Order Comment: Fernando villalobos Type: BLOOD SPECIMEN Ordering Facility: [facility] Address: [address] [place] [address] Result Comment: Anti -Ribosomal RNA (Ribosomal P) antibody is used as an aid in diagnosis of systemic autoimmune diseases especially systemic lupus erythematosus and mixed connective tissue disease. Cross-reactivity with Anti-faulkner antibody is not uncommon. Clinical correlation is required. Test Methodology: Multiplex flow immunoassay. Performed By: #### 5 1775-5, 26133-6, 12742-7, 10950-0, 94167-0, 36567-2, 38817-1, 30208-5 #### [facility] CLIA [id number] [address] [place] [address] [place] SCL-70 extractable nuclear I gG IA Qn (S)on 01-18-2024 SCLERODERMA AB QUAL Negative Normal Negative [facility] Comment on above: Order Comment: Fernando villalobos Type: BLOOD SPECIMEN Ordering Facility: [facility] Address: [address] [place] [address] Performed By: #### 5 1775-5, 49290-3, 17014-8, 40262-8, 61349-2, 53901-6, 49040-2, 54866-6 #### [facility] CLIA [id number] [address] [place] [address] [place] SCLERODERMA IGG AB <0.2 Normal <1.0 [facility] Comment on above: Order Comment: Fernando villalobos Type: BLOOD SPECIMEN Ordering Facility: [facility] Address: [address] [place] [address] Result Comment: Scl- 70/Scleroderma antibody test is used as an aid in diagnosis of systemic sclerosis especially the diffuse cutaneous form. A negative result cannot rule out systemic sclerosis. The final interpretation should consider clinical picture and other test results such as anti-centromere antibody. Test Methodology: Multiplex flow immunoassay. Performed By: #### 5 1775-5, 23540-7, 91918-1, 57229-9, 62355-1, 01211-7, 51901-1, 13797-2 #### [facility] CLIA [id number] [address] [place] [address] [place] Sjogrens syndrome-A extracta ble nuclear Ab Qn (S)on 01-18-2024 SSA ANTIBODY QUAL Negative Normal Negative [facility] Comment on above: Order Comment: Lowelli wilfredo Type: BLOOD SPECIMEN Ordering Facility: [facility] Address: [address] [place] [address] Performed By: #### 5 1775-5, 14568-2, 35124-2, 25986-8, 74939-9, 08587-1, 88120-8, 93310-0 #### [facility] CLIA [id number] [address] [place] [address] [place] Sjogrens syndrome-B extracta ble nuclear Ab Qn (S)on 01-18-2024 SSB ANTIBODY QUAL Negative Normal Negative [facility] Comment on above: Order Comment: Fernando villalobos Type: BLOOD SPECIMEN Ordering Facility: [facility] Address: [address] [place] [address] Performed By: #### 5 1775-5, 61251-8, 12848-5, 99115-5, 35506-5, 26886-1, 65022-8, 39246-7 #### [facility] CLIA [id number] [address] [place] [address] [place] Faulkner extractable nuclear Ig G Qn (S)on 01-18-2024 SM ANTIBODY QUAL Negative Normal Negative [facility] Comment on above: Order Comment: Speci men Type: BLOOD SPECIMEN Ordering Facility: [facility] Address: [address] [place] [address] Result Comment: Anti -Sm (Faulkner) antibody is used as an aid in diagnosis of systemic lupus erythematosus and its presence is associated with renal disease. A negative result cannot rule out systemic lupus erythematosus. Clinical correlation is required. Test Methodology: Multiplex flow immunoassay. Performed By: #### 5 1775-5, 85596-7, 60229-4, 13820-4, 88736-6, 67528-1, 38434-9, 66916-0 #### [facility] CLIA [id number] [address] [place] [address] [place] Urinalysis complete panel (U )on 01-18-2024 Bacteria uL 1237.4 uL High Negative [facility] Bilirubin Ql (U) Negative Negative [facility] Clarity (Unsp spec) Clear Clear [facility] Color (U) Yellow Yellow [facility] Epithelial cells LM.HPF (Urine sed) [#/Area] Moderate /HPF [facility] Glucose Test strip (U) [Mass/Vol] Negative Negative [facility] Hemoglobin Ql (U) Negative Negative [facility] Hyaline casts (Urine sed) [#/Area] 0 /[LPF] 0 /LPF [facility] Interpretation and review of laboratory results Abnormal [facility] Ketones Ql (U) Negative Negative [facility] Leukocyte esterase Test strip Ql (U) Negative Negative [facility] Nitrite Ql (U) Negative Negative [facility] pH (U) 6.5 [pH] NINF - 8.5 [facility] Protein (U) [Mass/Vol] Trace Abnormal Negative [facility] RBC LM.HPF (Urine sed) [#/Area] 0-2 /HPF 0-2 /HPF [facility] Specific gravity (U) [Rel density] 1.019 1.005 - 1.030 [facility] Urobilinogen Ql (U) 0.2 EU/dL 0.2-1.0 EU/dL [facility] WBC LM.HPF (Urine sed) [#/Area] 0-5 /HPF 0-5 /HPF [facility] This test was developed and its performance characteristics determined by [facility]'s Malick Martinez [facility] [place] ([facility]). It has not been cleared or approved by the FDA. [facility] is regulated under CLIA as qualified to perform high-complexity testing. This test is used for clinical purposes. It should not be regarded as investigational or for research. [facility] BACTERIA UL 1237.4 uL High Negative [facility] Comment on above: Order Comment: Speci men Type: BLOOD SPECIMEN Ordering Facility: [facility] Address: [address] [place] [address] Performed By: #### 5 1775-5, 33500-4, 91276-7, 73936-2, 44069-1, 63421-4, 26097-4, 07362-0 #### [facility] CLIA [id number] [address] [place] [address] [place] Bilirubin Ql (U) Negative Normal Negative [facility] Comment on above: Order Comment: Speci men Type: BLOOD SPECIMEN Ordering Facility: [facility] Address: [address] [place] [address] Performed By: #### 5 1775-5, 31230-8, 56171-3, 57362-4, 40577-9, 71275-4, 15285-5, 83998-2 #### [facility] CLIA [id number] [address] [place] [address] [place] Clarity (Unsp spec) Clear Normal [facility] Comment on above: Order Comment: Speci men Type: BLOOD SPECIMEN Ordering Facility: [facility] Address: [address] [place] [address] Performed By: #### 5 1775-5, 94134-7, 20047-5, 02431-6, 14878-4, 99583-2, 34579-0, 49014-5 #### [facility] CLIA [id number] [address] [place] [address] [place] Color (U) Yellow Normal Yellow [facility] Comment on above: Order Comment: Speci men Type: BLOOD SPECIMEN Ordering Facility: [facility] Address: [address] [place] [address] Performed By: #### 5 1775-5, 51604-7, 58965-9, 54571-3, 79364-7, 23855-6, 47046-0, 74934-1 #### [facility] CLIA [id number] [address] [place] [address] [place] Epithelial cells LM.HPF (Urine sed) [#/Area] Moderate Normal [facility] Comment on above: Order Comment: Speci men Type: BLOOD SPECIMEN Ordering Facility: [facility] Address: [address] [place] [address] Performed By: #### 5 1775-5, 92627-6, 64979-1, 50478-9, 34800-0, 51418-2, 51267-0, 05596-9 #### [facility] CLIA [id number] [address] [place] [address] [place] Glucose Test strip (U) [Mass/Vol] Negative Normal Negative [facility] Comment on above: Order Comment: Speci men Type: BLOOD SPECIMEN Ordering Facility: [facility] Address: [address] [place] [address] Performed By: #### 5 1775-5, 62102-2, 61542-5, 93769-5, 58037-6, 74035-8, 19538-7, 36513-6 #### [facility] CLIA [id number] [address] [place] [address] [place] Hemoglobin Ql (U) Negative Normal Negative [facility] Comment on above: Order Comment: Speci men Type: BLOOD SPECIMEN Ordering Facility: [facility] Address: [address] [place] [address] Performed By: #### 5 1775-5, 76911-1, 79314-9, 48849-4, 86231-6, 55236-8, 98678-4, 08027-8 #### [facility] CLIA [id number] [address] [place] [address] [place] Hyaline casts (Urine sed) [#/Area] 0 /[LPF] Normal 0 /LPF [facility] Comment on above: Order Comment: Speci men Type: BLOOD SPECIMEN Ordering Facility: [facility] Address: [address] [place] [address] Performed By: #### 5 1775-5, 28711-1, 53995-4, 27305-7, 54492-4, 32130-3, 12503-5, 92192-1 #### [facility] CLIA [id number] [address] [place] [address] [place] Ketones Ql (U) Negative Normal Negative [facility] Comment on above: Order Comment: Speci men Type: BLOOD SPECIMEN Ordering Facility: [facility] Address: [address] [place] [address] Performed By: #### 5 1775-5, 99524-7, 29073-5, 74562-1, 10009-9, 14684-6, 72685-1, 81393-6 #### [facility] CLIA [id number] [address] [place] [address] [place] Leukocyte esterase Test strip Ql (U) Negative Normal Negative [facility] Comment on above: Order Comment: Speci men Type: BLOOD SPECIMEN Ordering Facility: [facility] Address: [address] [place] [address] Performed By: #### 5 1775-5, 91047-7, 80982-7, 74767-5, 67758-5, 50497-9, 75888-0, 44452-0 #### [facility] CLIA [id number] [address] [place] [address] [place] Nitrite Ql (U) Negative Normal Negative [facility] Comment on above: Order Comment: Speci men Type: BLOOD SPECIMEN Ordering Facility: [facility] Address: [address] [place] [address] Performed By: #### 5 1775-5, 15227-7, 73174-4, 46983-5, 95043-2, 62762-2, 23676-0, 58766-2 #### [facility] CLIA [id number] [address] [place] [address] [place] pH (U) 6.5 [pH] Normal <8.5 [facility] Comment on above: Order Comment: Speci men Type: BLOOD SPECIMEN Ordering Facility: [facility] Address: [address] [place] [address] Performed By: #### 5 1775-5, 14130-4, 73139-2, 33687-5, 12216-5, 00113-5, 64991-4, 88469-6 #### [facility] CLIA [id number] [address] [place] [address] [place] Protein (U) [Mass/Vol] Trace Abnormal Negative [facility] Comment on above: Order Comment: Speci men Type: BLOOD SPECIMEN Ordering Facility: [facility] Address: [address] [place] [address] Performed By: #### 5 1775-5, 62365-0, 98142-1, 92366-8, 70829-2, 47256-7, 85264-2, 15597-5 #### [facility] CLIA [id number] [address] [place] [address] [place] RBC LM.HPF (Urine sed) [#/Area] 0-2 /HPF Normal 0-2 /HPF [facility] Comment on above: Order Comment: Speci men Type: BLOOD SPECIMEN Ordering Facility: [facility] Address: [address] [place] [address] Performed By: #### 5 1775-5, 28236-4, 18293-5, 53332-5, 77206-8, 16359-6, 00044-1, 05773-0 #### [facility] CLIA [id number] [address] [place] [address] [place] Specific gravity (U) [Rel density] 1.019 Normal 1.005-1.030 [facility] Comment on above: Order Comment: Speci men Type: BLOOD SPECIMEN Ordering Facility: [facility] Address: [address] [place] [address] Performed By: #### 5 5-5, 47805-2, 73303-2, 32708-6, 49148-3, 55678-4, 84811-2, 31391-9 #### [facility] CLIA [id number] [address] [place] [address] [place] Urobilinogen Ql (U) 0.2 EU/dL Normal 0.2-1.0 EU/dL [facility] Comment on above: Order Comment: Speci men Type: BLOOD SPECIMEN Ordering Facility: [facility] Address: [address] [place] [address] Performed By: #### 5 5-5, 92337-3, 22835-5, 16301-3, 17551-1, 06812-3, 21898-5, 47300-6 #### [facility] CLIA [id number] [address] [place] [address] [place] WBC LM.HPF (Urine sed) [#/Area] 0-5 /HPF Normal 0-5 /HPF [facility] Comment on above: Order Comment: Speci men Type: BLOOD SPECIMEN Ordering Facility: [facility] Address: [address] [place] [address] Performed By: #### 5 1775-5, 29580-4, 66273-9, 46849-9, 94638-9, 45648-9, 20478-7, 06791-5 #### [facility] CLIA [id number] [address] [place] [address] [place] cCP IgG SerPl-aCncon 11-25-2 024 Cyclic citrullinated peptide IgG Qn <15 Normal <20 [facility] Comment on above: Order Comment: Speci men Type: BLOOD SPECIMEN Ordering Facility: [facility] Address: [address] [place] [address] Performed By: #### 5 1775-5, 53852-1, 45085-6, 67029-1, 37700-6, 28786-9, 31350-5, 82733-4 #### [facility] CLIA [id number] [address] [place] [address] [place] Office Visiton 12-02-2023 Follow-up visit [id number] Essie Steele 1965 F Date Provider Department Center 12/02/2023 SUSANNE JEFFERSON ASHWIN [facility] Family History Problem Relation Age of Onset Heart attack Mother's Brother Hypertension Maternal Grandmother Family Status - Relation Status Age at Mother's Brother Maternal Grandmother Level of Service:28742 NE OFFICE/OUTPATIENT ESTABLISHED LOW MDM 20 MIN Reason for Visit and Comments: Atrial Fibrillation [80] Normal [facility] CNOVon 11-23-2023 CNOV Office Visit (WCTRMN ) ESSIE STEELE ([id number]) 1965 F Date Time Provider Department 11/23/23 8:00 AM KRISTY EVANGELISTA WCARIMN During your visit today, we recorded the following information about you: Pulse Blood pressure Weight Last Period 71/minute 139/74 108.5 kg 07/24/20 Kristy Evangelista MD 12/12/2023 3:15 PM Signed 58 year old yo W [facility]. .No primary care provider on file. 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 Last mammo 4-6 wks at [facility]. BONE: Denies FMH OP/fx. No PMH [...] first a (more content not included)... Normal [facility] Orders Onlyon 11-20-2023 Orders Only [id number] Essie Steele 1965 F Date Provider Department Center 11/20/2023 [id number], HISTORICAL CARD [facility] Family History Problem Relation Age of Onset Heart attack Mother's Brother Hypertension Maternal Grandmother Family Status - Relation Status Age at Mother's Brother Maternal Grandmother Normal [facility] Orders Onlyon 11-17-2023 Orders Only [id number] Essie Steele 1965 F Date Provider Department Center 11/17/2023 [id number], HISTORICAL [facility] CARD Rodríguez Family History Problem Relation Age of Onset Heart attack Mother's Brother Hypertension Maternal Grandmother Family Status - Relation Status Age at Mother's Brother Maternal Grandmother Normal [facility] INSULINon 06-13-2022 Insulin 8.5 uIU/mL Normal 2.6-24.9 [facility] Comment on above: Performed By: #### I NSULIN #### [facility] [address] [place] [address] Dr. Delonte Sparrow AMMONIAon 06-12-2022 Ammonia (P) [Moles/Vol] 33 umol/L Critically high 11-32 [facility] Comment on above: Performed By: #### A MM #### [facility] [address] [address] [address] Delonte Sparrow AMYLASEon 06-12-2022 Amylase [Catalytic activity/Vol] 47 U/L Normal 25-115 [facility] Comment on above: Performed By: #### L IPA, CMP, NONI #### [facility] [address] [place] [address] Dr. Delonte Sparrow CBC AUTO DIFFon 06-12-2022 BASO # 0.0 103/ul Normal 0.0-0.1 [facility] Comment on above: Performed By: #### C BC #### [facility] [address] [address] [address] Delonte Sparrow Basophils/100 WBC (Bld) 0.7 % Normal 0.2-2.0 [facility] Comment on above: Performed By: #### C BC #### [facility] [address] [address] [address] Delonte Sparrow EO # 0.3 103/ul Normal 0.0-0.7 [facility] Comment on above: Performed By: #### C BC #### [facility] [address] [place] [address] Dr. Delonte Sparrow Eosinophils/100 WBC (Bld) 4.3 % Normal 0.9-7.0 [facility] Comment on above: Performed By: #### C BC #### [facility] [address] [place] [address] Dr. Delonte Sparrow Erythrocyte distribution width (RBC) [Ratio] 15.0 % Normal 11.0-15.0 [facility] Comment on above: Performed By: #### C BC #### [facility] [address] [place] [address] Dr. Delonte Sparrow Hematocrit (Bld) [Volume fraction] 38.8 % Normal 36.0-48.0 [facility] Comment on above: Performed By: #### C BC #### [facility] [address] [place] [address] Dr. Delonte Sparrow Hemoglobin (Bld) [Mass/Vol] 12.0 g/dL Normal 12.0-16.0 [facility] Comment on above: Performed By: #### C BC #### [facility] [address] [place] [address] Dr. Delonte Sparrow IG # 0.03 10e3/ul Normal 0.00-0.03 [facility] Comment on above: Performed By: #### C BC #### [facility] [address] [place] [address] Dr. Delonte Sparrow IG % 0.5 % Normal 0.0-0.5 [facility] Comment on above: Performed By: #### C BC #### [facility] [address] [address] [address] Delonte Sparrow LYMPH # 1.7 103/ul Normal 1.2-3.8 [facility] Comment on above: Performed By: #### C BC #### [facility] [address] [place] [address] Dr. Delonte Sparrow Lymphocytes/100 WBC (Bld) 27.3 % Normal 20.5-60.0 [facility] Comment on above: Performed By: #### C BC #### [facility] [address] [place] [address] Dr. Delonte Sparrow MANUAL DIFF REQ NO Normal [facility] Comment on above: Performed By: #### C BC #### [facility] [address] [place] [address] Dr. Delonte Sparrow MCH (RBC) [Entitic mass] 24.1 pg Critically low 26.7-34.0 [facility] Comment on above: Performed By: #### C BC #### [facility] [address] [place] [address] Dr. Delonte Sparrow MCHC (RBC) [Mass/Vol] 30.9 g/dL Normal 29.9-35.2 [facility] [facility] Comment on above: Performed By: #### C BC #### [facility] [address] [place] [address] Dr. Delonte Sparrow MCV (RBC) [Entitic vol] 78.1 fL Critically low 81.0-99.0 [facility] Comment on above: Performed By: #### C BC #### [facility] [address] [place] [address] Dr. Delonte Sparrow MONO # 0.4 103/ul Normal 0.3-0.8 [facility] Comment on above: Performed By: #### C BC #### [facility] [address] [place] [address] Dr. Delonte Sparrow Monocytes/100 WBC (Bld) 6.4 % Normal 1.7-12.0 [facility] Comment on above: Performed By: #### C BC #### [facility] [address] [place] [address] Dr. Delonte Sparrow NEUT # 3.7 103/ul Normal 1.4-6.5 [facility] Comment on above: Performed By: #### C BC #### [facility] [address] [place] [address] Dr. Delonte Sparrow Neutrophils/100 WBC (Bld) 60.8 % Normal 43.0-75.0 [facility] Comment on above: Performed By: #### C BC #### [facility] [address] [place] [address] Dr. Delonte Sparrow Platelet mean volume (Bld) [Entitic vol] 9.7 fL Normal 9.5-13.5 [facility] Comment on above: Performed By: #### C BC #### [facility] [address] [place] [address] Dr. Delonte Sparrow PLT 263 103/ul Normal 150-450 [facility] Comment on above: Performed By: #### C BC #### [facility] [address] [place] [address] Dr. Delonte Sparrow RBC 4.97 106/ul Normal 4.20-5.40 [facility] Comment on above: Performed By: #### C BC #### [facility] [address] [place] [address] Dr. Delonte Sparrow WBC 6.1 103/ul Normal 4.0-11.0 [facility] Comment on above: Performed By: #### C BC #### [facility] [address] [place] [address] Dr. Delonte Sparrow FREE THYROXINE INDEX T7on FTI 2.61 Normal 1.30-4.50 [facility] Comment on above: Performed By: #### L IPA, CMP, NONI #### [facility] [address] [place] [address] Dr. Delonte Sparrow T3U 33.0 % Normal 30.0-39.0 [facility] Comment on above: Performed By: #### L IPA, CMP, NONI #### [facility] [address] [address] [address] Delonte Sparrow T4 [Mass/Vol] 7.90 ug/dL Normal 4.80-13.90 [facility] Comment on above: Performed By: #### L ADELE OCONNELL, NONI #### [facility] [address] [place] [address] Dr. Delonte Sparrow GLYCOHEMOGLOBIN A1Con 2022 ADA RECOMMENDATION SEE BELOW Normal The [facility] Comment on above: Result Comment: ADA RECOMMENDED LIMIT 4.0 - 6.0 ADA THERAPEUTIC TARGET < 7.0 ACTION SUGGESTED > 7.0 Performed By: #### A 1C #### [facility] [address] [place] [address] Dr. Delonte Sparrow Glucose [Mass/Vol] 105 mg/dL Normal [facility] Comment on above: Performed By: #### A 1C #### [facility] [address] [place] [address] Dr. Delonte Sparrow HbA1c (Bld) [Mass fraction] 5.3 % Normal 4.5-6.2 [facility] Comment on above: Performed By: #### A 1C #### [facility] [address] [place] [address] Dr. Delonte Sparrow IRONon 06-12-2022 Iron [Mass/Vol] 35.0 ug/dL Critically low 50.0-170.0 [facility] Comment on above: Performed By: #### L ADELE OCONNELL, NONI #### [facility] [address] [place] [address] Dr. Delonte Sparrow LIPASEon 06-12-2022 Lipase [Catalytic activity/Vol] 130.0 U/L Normal 73.0-393.0 [facility] Comment on above: Performed By: #### L ADELE OCONNELL, NONI #### [facility] [address] [place] [address] Dr. Delonte Sparrow TSHon 06-12-2022 TSH 1.741 uIU/mL Normal 0.358-3.740 [facility] Comment on above: Performed By: #### L KOURTNEY CMP, NONI #### [facility] [address] [place] [address] Dr. Delonte Sparrow VITAMIN D 25 OHon 06-12-2022 VIT D 25-OH 20.9 ng/mL Normal [facility] Comment on above: Performed By: #### I AMANDA VITAD #### [facility] [address] [place] [address] Dr. Delonte Sparrow VIT D RANGES SEE BELOW Normal [facility] Comment on above: Result Comment: <20 ng/mL Vit D deficient 20 - <30 ng/mL Vit D insufficient 30 - 100 ng/mL Vit D sufficient >100 ng/mL Potential Toxicity Performed By: #### I AMANDA VITAD #### [facility] [address] [place] [address] Dr. Delonte Sparrow AMYLASEon 08-21-2021 Amylase [Catalytic activity/Vol] 26 U/L Normal 25-115 [facility] Comment on above: Performed By: #### L IPA, CMP, NONI #### [facility] [address] [place] [address] Dr. Delonte Sparrow CBC W MANUAL DIFFon 08-22-19 22 ATYPICAL LYMPH # Normal [facility] Comment on above: Performed By: #### Pravin DE LA TORRE #### [facility] [address] [place] [address] Dr. Delonte Sparrow ATYPICAL LYMPH % Normal [facility] Comment on above: Performed By: #### Pravin DE LA TORRE #### [facility] [address] [place] [address] Dr. Delonte Sparrow BAND # Normal 0.0-0.3 [facility] Comment on above: Performed By: #### C BRITT #### [facility] [address] [place] [address] Dr. Delonte Sparrow BAND % Normal 0-5 [facility] Comment on above: Performed By: #### Pravin DE LA TORRE #### [facility] [address] [place] [address] Dr. Delonte Sparrow BASOM # 0.00 103/ul Normal 0.00-0.10 [facility] Comment on above: Performed By: #### C BRITT #### [facility] [address] [address] [address] Delonte Sparrow BASOM % 0.0 % Critically low 0.2-2.0 [facility] Comment on above: Performed By: #### C BCMAN #### [facility] [address] [address] [address] Delonte Sparrow BLAST # Normal [facility] Comment on above: Performed By: #### C BCMAN #### [facility] [address] [address] [address] Delonte Sparrow BLAST % Normal [facility] Comment on above: Performed By: #### C BCMAN #### [facility] [address] [address] [address] Delonte Sparrow CORRECTED WBC Normal 4.0-11.0 [facility] Comment on above: Performed By: #### C BCSEA #### [facility] [address] [place] [address] Dr. Delonte Sparrow EOS # 15.45 103/ul Critically high 0.00-0.70 [facility] Comment on above: Performed By: #### C BCSEA #### [facility] [address] [address] [address] Delonte Sparrow EOS% 57.0 % Critically high 0.9-7.0 [facility] Comment on above: Performed By: #### C BCSEA #### [facility] [address] [address] [address] Dleonte Sparrow HCT 45.1 % Normal 36.0-48.0 [facility] Comment on above: Performed By: #### C BCMAN #### [facility] [address] [place] [address] Dr. Delonte Sparrow HGB 13.9 g/dl Normal 12.0-16.0 [facility] Comment on above: Performed By: #### C BCMAN #### [facility] [address] [address] [address] Delonte Sparrow LYMPHM # 2.98 103/ul Normal 1.20-3.80 [facility] Comment on above: Performed By: #### C BCMAN #### [facility] [address] [address] [address] Delonte Sparrow LYMPHM% 11.0 % Critically low 20.5-60.0 [facility] Comment on above: Performed By: #### C BRITT #### [facility] [address] [address] [address] Delonte Sparrow MCH 23.3 pg Critically low 26.7-34.0 [facility] Comment on above: Performed By: #### C BRITT #### [facility] [address] [address] [address] Delonte Sparrow MCHC 30.8 g/dl Normal 29.9-35.2 [facility] Comment on above: Performed By: #### C BRITT #### [facility] [address] [place] [address] Dr. Delonte Sparrow MCV 75.5 fL Critically low 81.0-99.0 [facility] Comment on above: Performed By: #### C BRITT #### [facility] [address] [place] [address] Dr. Delonte Sparrow METAMYELOCYTE # Normal [facility] Comment on above: Performed By: #### C BRITT #### [facility] [address] [place] [address] Dr. Delonte Sparrow METAMYELOCYTE % Normal [facility] Comment on above: Performed By: #### C BRITT #### [facility] [address] [address] [address] Delonte Sparrow MONOM# 1.63 103/ul Critically high 0.30-0.80 [facility] Comment on above: Performed By: #### C BRITT #### [facility] [address] [place] [address] Dr. Delonte Sparrow MONOM% 6.0 % Normal 1.7-12.0 [facility] Comment on above: Performed By: #### C BRITT #### [facility] [address] [address] [address] Delonte Sparrow MPV 9.9 fL Normal 9.5-13.5 [facility] Comment on above: Performed By: #### C BCSEA #### [facility] [address] [address] [address] Delonte Sparrow MYELOCYTE # Normal [facility] Comment on above: Performed By: #### C BCSEA #### [facility] [address] [address] [address] Delonte Sparrow MYELOCYTE % Normal [facility] Comment on above: Performed By: #### C BCSEA #### [facility] [address] [address] [address] Delonte Sparrow NRBC Normal [facility] Comment on above: Performed By: #### C BRITT #### [facility] [address] [address] [address] Delonte Sparrow PLT 343 103/ul Normal 150-450 [facility] Comment on above: Performed By: #### C BRITT #### [facility] [address] [address] [address] Dleonte Sparrow RBC 5.97 106/ul Critically high 4.20-5.40 [facility] Comment on above: Performed By: #### C BRITT #### [facility] [address] [place] [address] Dr. Delonte Sparrow RDW 16.9 % Critically high 11.0-15.0 [facility] Comment on above: Performed By: #### C BRITT #### [facility] [address] [address] [address] Delonte Sparrow SEG # 7.05 103/ul Critically high 1.40-6.50 [facility] Comment on above: Performed By: #### C BCSEA #### [facility] [address] [address] [address] Delonte Sparrow SEG % 26.0 % Critically low 43.0-75.0 [facility] Comment on above: Performed By: #### C BRITT #### [facility] [address] [address] [address] Delonte Sparrow WBC 27.1 103/ul Critically high 4.0-11.0 [facility] Comment on above: Performed By: #### C [facility] #### [facility] [address] [address] [address] ABD/PELV W CONon [...] by: DWIGHT TOBAR Date: 2021-08-21 16:48 Normal [facility] LIPASEon 08-21-2021 Lipase [Catalytic activity/Vol] 58.0 U/L Critically low 73.0-393.0 [facility] Comment on above: Performed By: #### L IPA, CMP, NONI #### [facility] [address] [place] [address] Dr. Delonte Sparrow PROF 14(COMP METB)on 022 Albumin [Mass/Vol] 3.6 g/dL Normal 3.4-5.0 [facility] Comment on above: Performed By: #### L IPA, CMP, NONI #### [facility] [address] [place] [address] Dr. Delonte Sparrow Albumin/Globulin [Mass ratio] 1.0 {ratio} Normal [facility] Comment on above: Performed By: #### L IPA, CMP, NONI #### [facility] [address] [place] [address] Dr. Delonte Sparrow ALP [Catalytic activity/Vol] 125 U/L Critically high 46-116 [facility] Comment on above: Performed By: #### L IPA, CMP, NONI #### [facility] [address] [place] [address] Dr. Delonte Sparrow ALT [Catalytic activity/Vol] 27 U/L Normal 14-59 [facility] Comment on above: Performed By: #### L IPA, CMP, NONI #### [facility] [address] [place] [address] Dr. Delonte Sparrow Anion gap [Moles/Vol] 12.7 mmol/L Normal [facility] Comment on above: Performed By: #### L IPA, CMP, NONI #### [facility] [address] [address] [address] Delonte Sparrow AST [Catalytic activity/Vol] 15 U/L Normal 15-37 [facility] Comment on above: Performed By: #### L IPA, CMP, NONI #### [facility] [address] [place] [address] Dr. Delonte Sparrow Bilirubin [Mass/Vol] 0.3 mg/dL Normal 0.2-1.0 [facility] Comment on above: Performed By: #### L IPA, CMP, NONI #### [facility] [address] [place] [address] Dr. Delonte Sparrow Calcium [Mass/Vol] 8.2 mg/dL Critically low 8.5-10.[address] [facility] Comment on above: Performed By: #### L IPA, CMP, NONI #### [facility] [address] [place] [address] Dr. Delonte Sparrow Chloride [Moles/Vol] 103 mmol/L Normal 98-107 [facility] Comment on above: Performed By: #### L IPA, CMP, NONI #### [facility] [address] [place] [address] Dr. Delonte Sparrow CO2 [Moles/Vol] 29.2 mmol/L Normal 21.0-32.0 [facility] Comment on above: Performed By: #### L IPA, CMP, NONI #### [facility] [address] [place] [address] Dr. Delonte Sparrow Creatinine [Mass/Vol] 0.81 mg/dL Normal 0.55-1.02 [facility] Comment on above: Performed By: #### L IPA, CMP, NONI #### [facility] [address] [place] [address] Dr. Delonte Sparrow EGFR-AF SCOTTISH >60 Normal >=60 [facility] Comment on above: Performed By: #### L IPA, CMP, NONI #### [facility] [address] [place] [address] Dr. Delonte Sparrow EGFR-NON AF SCOTTISH >60 Normal >=60 [facility] Comment on above: Performed By: #### L IPA, CMP, NONI #### [facility] [address] [address] [address] Delonte Sparrow Globulin (S) [Mass/Vol] 3.7 g/dL Normal [facility] Comment on above: Performed By: #### L IPA, CMP, NONI #### [facility] [address] [address] [address] Delonte Sparrow Glucose [Mass/Vol] 103 mg/dL Normal 74-[address] [facility] Comment on above: Performed By: #### L IPA, CMP, NONI #### [facility] [address] [address] [address] Delonte Sparrow Potassium [Moles/Vol] 3.9 mmol/L Normal 3.5-5.1 [facility] Comment on above: Performed By: #### L IPA, CMP, NONI #### [facility] [address] [place] [address] Dr. Delonte Sparrow Protein [Mass/Vol] 7.3 g/dL Normal 6.4-8.[address] [facility] Comment on above: Performed By: #### L IPA, CMP, NONI #### [facility] [address] [address] [address] Delonte Sparrow Sodium [Moles/Vol] 141 mmol/L Normal 136-[address] [facility] Comment on above: Performed By: #### L IPA, CMP, NONI #### [facility] [address] [address] [address] Delonte Sparrow Urea nitrogen [Mass/Vol] 16.0 mg/dL Normal 7.0-18.0 [facility] Comment on above: Performed By: #### L IPA, CMP, NONI #### [facility] [address] [address] [address] Delonte Sparrow Urea nitrogen/Creatinine [Mass ratio] 19.8 mg/mg Normal [facility] Comment on above: Performed By: #### L IPA, CMP, NONI #### [facility] [address] [place] [address] Dr. Delonte Sparrow COVID-19 Positive/Negativeon 06-20-2020 SARS-CoV-2 (COVID-19) N gene WES+probe Ql (Resp) Negative Negative [facility] Comment on above: Testing for SARS-CoV -2 by RT-PCRThis test was developed and its performance characteristics determined by [employer] ([employer] and validated at the [facility]. This test has not been FDA cleared [...] (COVID-19) RNA WES+probe Ql (Unsp spec) N/A [facility] Cytologyon 04-12-2018 Cytology (NOTE) [id number] [facility] ANATOMIC PATHOLOGY [address] [place] [address]. [place], [place] [address] GYNECOLOGIC CYTOLOGY REPORT Patient Name: ESSIE STEELE MR#: [id number] Specimen #[id number] Source: 1: Cervical material, (ThinPrep vial, Imaging-assisted review) Clinical History Postmenopausal Z01.419 Routine obstetrician/gynecologist exam without abnormal findings High Risk HPV DNA testing is requested if the diagnosis is ASC-US LMP: 11/11/15 INTERPRETATION Cervical material, (ThinPrep vial, Imaging-assisted review): Specimen Adequacy: Satisfactory for evaluation. - Endocervical/transfor mation zone component present. - Scant cellularity, predominantly inflammatory exudate. Descriptive Diagnosis: Negative for intraepithelial lesion or malignancy. Shift in bruce suggestive of bacterial vaginosis. Entry Level Project Coordinator: HARJIT Valera(ASCP) Electronically Signed Out bessie/04/23/2018 [facility] Comment on above: Performed By: #### P PPVP #### [facility] [address] [place] [address] Payroll Representative: Karthik Lynn MD Vital Signs Date Time Vital Sign Value Performing Clinician Facility 10-26-2024 15:29-0400 Body height 170.18 cm Brett Paniagua MD Work Phone: [facility] 10-26-2024 15:29-0400 Body mass index (BMI) [Ratio] 35.4 kg/m2 Brett Paniagua MD Work Phone: [facility] 10-26-2024 15:29-0400 Body weight 102.51 kg Brett Paniagua MD Work Phone: [facility] 10-26-2024 15:29-0400 Diastolic blood pressure 80 mm[Hg] Brett Paniagua MD Work Phone: [facility] 10-26-2024 15:29-0400 Heart rate 59 /min Brett Paniagua MD Work Phone: [facility] 10-26-2024 15:29-0400 SaO2% (BldA) [Mass fraction] 96 % Brett Paniagua MD Work Phone: [facility] 10-26-2024 15:29-0400 Systolic blood pressure 126 mm[Hg] Brett Paniagua MD Work Phone: [facility] 07-19-2024 10:13-0400 Body height 170.18 cm [facility] 07-19-2024 10:13-0400 Body mass index (BMI) [Ratio] 35.4 kg/m2 [facility] 07-19-2024 10:13-0400 Body weight 102.51 kg [facility] 07-19-2024 10:13-0400 Diastolic blood pressure 75 mm[Hg] [facility] 07-19-2024 10:13-0400 Heart rate 65 /min [facility] 07-19-2024 10:13-0400 Systolic blood pressure 116 mm[Hg] [facility] 05-05-2024 14:25-0400 Body mass index (BMI) [Ratio] 33.52 kg/m2 Wolf Medley MD Work Phone: [facility] 05-05-2024 14:25-0400 Body weight 97.07 kg Wolf Medley MD Work Phone: [facility] 05-05-2024 14:25-0400 Diastolic blood pressure 86 mm[Hg] Wolf Medley MD Work Phone: [facility] 05-05-2024 14:25-0400 Systolic blood pressure 134 mm[Hg] Wolf Medley MD Work Phone: [facility] 01-18-2024 09:19-0500 Body height 168.9 cm Renny Baron MD Work Phone: [facility] 01-18-2024 09:19-0500 Body mass index (BMI) [Ratio] 38.27 kg/m2 Renny Baron MD Work Phone: [facility] 01-18-2024 09:19-0500 Body temperature 97.2 [degF] Renny Baron MD Work Phone: [facility] 01-18-2024 09:19-0500 Body weight 109.2 kg Renny Baron MD Work Phone: [facility] 01-18-2024 09:19-0500 Diastolic blood pressure 100 mm[Hg] Renny Baron MD Work Phone: [facility] 01-18-2024 09:19-0500 Heart rate 68 /min Renny Baron MD Work Phone: [facility] 01-18-2024 09:19-0500 Systolic blood pressure 153 mm[Hg] Renny Baron MD Work Phone: [facility] 11-23-2023 08:11-0400 Body weight 108.5 kg Kristy Evangelista MD Work Phone: [facility] 11-23-2023 08:11-0400 Diastolic blood pressure 74 mm[Hg] Kristy Evangelista MD Work Phone: [facility] 11-23-2023 08:11-0400 Heart rate 71 /min Kristy Evangelista MD Work Phone: [facility] 11-23-2023 08:11-0400 Systolic blood pressure 139 mm[Hg] Kristy Evangelista MD Work Phone: [facility] 09-24-2023 09:46-0400 Body temperature 98.2 [degF] Lester Kubitz DPM Work Phone: [facility] 09-24-2023 09:46-0400 Diastolic blood pressure 74 mm[Hg] Lester Kubitz DPM Work Phone: [facility] 09-24-2023 09:46-0400 Heart rate 65 /min Lester Kubitz DPM Work Phone: [facility] 09-24-2023 09:46-0400 Systolic blood pressure 122 mm[Hg] Lester Kubitz DPM Work Phone: [facility] 10-07-2022 09:30-0400 Body height 170.18 cm Philippe Wise Other [employer] Other 10-07-2022 09:30-0400 Body mass index (BMI) [Ratio] 34.45 kg/m2 Philippe Wise Other [employer] Other 10-07-2022 09:30-0400 Body weight 99.79 kg Philippe Wise Other [employer] Other 10-07-2022 09:30-0400 Diastolic blood pressure 83 mm[Hg] Philippe Wise Other [employer] Other 10-07-2022 09:30-0400 Systolic blood pressure 139 mm[Hg] Philippe Wise Other [employer] Other 08-29-2021 12:00-0400 Body height 170.18 cm René Aliyah Other [employer] Other 08-29-2021 12:00-0400 Body mass index (BMI) [Ratio] 35.55 kg/m2 René Cjdesiree Other [employer] Other 08-29-2021 12:00-0400 Body weight 102.97 kg René Ly Other [employer] Other 08-29-2021 12:00-0400 Diastolic blood pressure 89 mm[Hg] René Aliyah Other [employer] Other 08-29-2021 12:00-0400 Systolic blood pressure 142 mm[Hg] René Aliyah Other [employer] Other Encounters Encounter Date Encounter Type Care Provider Facility Start: 10-26-2024 End: 10-26-2024 ambulatory Brett Paniagua MD Work Phone: [facility] Work Phone: Start: 10-26-2024 End: 10-26-2024 Patient encounter procedure Mar Stanton DO [facility] Work Phone: Start: 08-16-2024 Non-patient / Non-visit Mar Yeboah [facility] Work Phone: Start: 07-21-2024 End: 07-21-2024 Patient encounter procedure Brett Paniagua MD Work Phone: [facility] Work Phone: Start: 07-21-2024 End: 07-21-2024 ambulatory Brett Paniagua MD Work Phone: [facility] Work Phone: Start: 07-19-2024 End: 07-19-2024 ambulatory [facility] Work Phone: Start: 07-19-2024 End: 07-19-2024 Patient encounter procedure [facility] Work Phone: Start: 06-24-2024 End: 06-24-2024 ambulatory [facility] Start: 05-05-2024 End: 05-05-2024 Initial preventive medicine new patient 40-64yrs Wolf Medley MD Work Phone: [facility] Comment on above: Well woman exam with routine gynecological exam; Cervical cancer screening; Screening for HPV (human papillomavirus) Start: 05-05-2024 End: 05-05-2024 Patient encounter procedure Wolf Medley MD Work Phone: [facility] Start: 05-05-2024 End: 05-05-2024 ambulatory WOLF MEDLEY Not Available Start: 05-05-2024 End: 05-05-2024 Bamboo flowsheet Wolf Medley MD Work Phone: [facility] Start: 05-05-2024 End: 05-05-2024 Bamboo flowsheet Wolf Medley MD Work Phone: [facility] Start: 03-25-2024 End: 03-25-2024 ambulatory Brett Hoy [facility] Start: 03-25-2024 End: 03-25-2024 Patient encounter procedure Zacarias COBIAN [facility] General [facility] Start: 03-15-2024 ambulatory Brett Hoy Facility:[facility] Start: 03-11-2024 ambulatory Brett Hoy Facility:[facility] Start: 03-08-2024 End: 03-09-2024 ambulatory Kristy Evangelista MD Work Phone: [facility] Comment on above: PCP Start: 02-29-2024 End: 03-01-2024 Refill Kristy Evangelista MD Work Phone: [facility] Comment on above: Refill Request Start: 02-28-2024 End: 02-29-2024 Refill Renny Baron MD Work Phone: Rheumatology Comment on above: Refill Request Start: 02-08-2024 End: 02-08-2024 ambulatory RENNY BARON Facility:[facility] Comment on above: Arthralgia, unspecif ied joint (Primary Dx); Enthesitis; Encounter for long-term (current) use of medications; Carpal tunnel syndrome of left wrist; Positive KAELA (antinuclear antibody) Start: 02-08-2024 End: 02-08-2024 Telemedicine consultation with patient Renny Baron MD Work Phone: Rheumatology Start: 01-28-2024 End: 01-28-2024 ambulatory Renny Baron MD Work Phone: Rheumatology Comment on above: Xra[employer] Start: 01-20-2024 End: 01-20-2024 MC Get Medical Advice Renny Baron MD Work Phone: Rheumatology Comment on above: Xrays order Start: 01-18-2024 End: 01-18-2024 ambulatory RENNY BARON Facility:[facility] Start: 01-18-2024 End: 01-18-2024 Office outpatient new 60 minutes Renny Baron MD Work Phone: Rheumatology Comment on above: Encounter for long-t erm (current) use of medications (Primary Dx); Crohn's disease of large intestine without complication (HCC); Arthritis; Enthesitis; Arthralgia, unspecified joint Start: 01-18-2024 End: 01-18-2024 ambulatory KRISTY EVANGELISTA Facility:[facility] Start: 01-18-2024 End: 01-18-2024 Subsequent hospital visit by physician Bone D[facility] Main A21 1 Radiology Comment on above: Symptomatic menopaus al or female climacteric states [N95.1] Start: 12-02-2023 End: 12-02-2023 ambulatory SUSANNE PAZ [facility] Start: 11-23-2023 End: 11-23-2023 ambulatory KRISTY EVANGELISTA Facility:[facility] Start: 11-23-2023 End: 11-23-2023 Patient encounter procedure Kristy Evangelista MD Work Phone: [facility] Comment on above: Symptomatic menopaus al or female climacteric states (Primary Dx); Paroxysmal atrial fibrillation (HCC); Gastroesophageal reflux disease without esophagitis; Migraine with aura and with status migrainosus, not intractable; Crohn's disease of large intestine without complication (HCC); Arthritis Start: 09-24-2023 End: 09-24-2023 Office outpatient visit 15 minutes Lester Harrell DPM Work Phone: [facility] Comment on above: Pain of right foot ( Primary Dx); Pain of right heel; Pain of left foot; Pain of left heel; Bilateral plantar fasciitis Start: 09-24-2023 End: 09-24-2023 ambulatory LESTER HARRELL Not Available Start: 07-01-2023 End: 07-01-2023 ambulatory LOU [facility] Start: 10-07-2022 End: 10-07-2022 ambulatory Philippe Wise Other [facility] Other Start: 10-07-2022 Patient encounter procedure Philippe Wise [facility] Gastroenterology Start: 07-07-[address] BRETT PANIAGUA . Facili ty:[facility] Start: 06-12-2022 End: 06-13-[address] BRETT PANIAGUA . Facility:[facility] Start: 08-29-2021 End: 08-29-2021 ambulatory René Ly Other [facility] Other Start: 08-29-2021 Office outpatient vi sit 25 minutes René Ly [facility] Gastroenterology Start: 08-21-2021 End: 08-22-[address] BRETT PANIAGUA . Facility:[facility] Start: 06-20-2020 End: 06-20-2020 Patient encounter procedure M Brett Sauernaida Work Phone: -Pre-Surgical Testing Start: 04-12-2018 Encounter for gynecological examination (general) (routine) without abnormal findings [facility] Start: 04-12-2018 End: 04-13-[address] [facility] Procedures Date Procedure Procedure Detail Performing Clinician Start: 07-21-2024 Supine abdominal X-ray Brett Paniagua MD Work Phone: Start: 04-11-2024 Radex foot complete minimum 3 views Euge ne R Kubitz DPM Work Phone: Start: 04-11-2024 Radex foot complete minimum 3 views Euge ne R Kubitz DPM Work Phone: Start: 01-18-2024 Dxa bone density study 1/> sites axial skel Kristy Evangelista MD Work Phone: Start: 04-12-2018 Screen pap by gisela NEW Start: 04-12-2018 Microscopic observation [Identifier] in Cervix by Cyto stain Lester Harrell DPM Work Phone: Colonoscopy Zacarias COBIAN Esophagogastroduodenoscopy Nader olivo ARANZA Hysterectomy Zacarias COBIAN Plan of Treatment Date Care Activity Detail Author Start: 01-17-2027 Diabetes Screening Diabetes Screenin g [facility] Start: 05-05-2024 End: 05-05-2024 Patient encounter procedure 05/05/2024 2:15 PM EDT Office Visit [facility] [address] [place] [address] Wolf Medley MD [address] [place] [address] Well woman exam with routine gynecological exam; Cervical cancer screening; Screening for HPV (human papillomavirus); Other screening mammogram [facility] Comment on above: Well woman exam with routine gynecological exam; Cervical cancer screening; Screening for HPV (human papillomavirus); Other screening mammogram Start: 03-14-2024 End: 03-14-2024 Patient encounter procedure 03/14/2024 11:20 AM EST Office Visit [facility] [address] [address] Kristy Evangelista MD [address] [place] [address] 3 MONTH FOLLOW UP [facility] Comment on above: 3 MONTH FOLLOW UP Start: 02-08-2024 End: 02-08-2024 ambulatory 02/08/2024 9:30 AM EST [facility] Rheumatology [address] [address] Renny Baron MD [address] [address] 3w f/u - discuss results Rheumatology Comment on above: 3w f/u - discuss res ults Start: 01-18-2024 End: 04-18-2024 BLOOD TB SCREEN [facility] Comment on above: Expected: 01/18/2024 , Expires: 04/18/2024 Start: 01-18-2024 End: 04-18-2024 Cyclic citrullinated peptide IgG Ab [Units/volume] in Serum or Plasma [facility] Comment on above: Expected: 01/18/2024 , Expires: 04/18/2024 Start: 01-18-2024 End: 04-18-2024 DNA double strand Ab [Units/volume] in Serum by Immunoassay [facility] Comment on above: Expected: 01/18/2024 , Expires: 04/18/2024 Start: 01-18-2024 End: 04-18-2024 Extractable nuclear Ab panel - Serum [facility] Comment on above: Expected: 01/18/2024 , Expires: 04/18/2024 Start: 01-18-2024 End: 01-18-2024 Patient encounter procedure Radiology Comment on above: DXA-AXIAL SKELETON, Symptomatic menopausal or female climacteric states [N95.1], BD DXA TRABECULAR BONE SCORE (TBS),.Symptomatic menopausal or female climacteric states [N95.1] Arthritis [M19.90] Start: 10-25-2023 Covid-19 Vaccine ( season) Covid-19 Vaccine ( season) [facility] Start: 10-25-2023 Influenza vaccination Influenza Vacc ine (#1) [facility] Start: 04-12-2021 Screening for malign ant neoplasm of cervix [facility] Start: 01-17-2016 Pneumococcal Vaccine : 50+ (1 of 1 - PCV) Pneumococcal Vaccine: 50+ (1 of 1 - PCV) [facility] Start: 01-17-2016 Shingrix Vaccine (1 of 2) Shingrix Vaccine (1 of 2) [facility] Start: 2011 Diabetes Screening Diabetes Screenin g [facility] Start: 2011 Lipid panel Lipid Screening [facility] Start: 2011 Screening for malign ant neoplasm of colon [facility] Start: 2006 Screening for malign ant neoplasm of breast [facility] Start: 01-17-1996 Screening for malign ant neoplasm of cervix HPV/[facility] Start: 1985 Hepatitis B Vaccine (1 of 3 - 19+ 3-dose series) Hepatitis B Vaccine (1 of 3 - 19+ 3-dose series) [facility] Start: 1985 Urine microalbumin profile DTaP,Tdap,Td Vaccine (1 - Tdap) [facility] Start: 01-17-1984 Anxiety Screening Anxiety Screening [facility] Start: 01-17-1984 Depression Screening Depression Scre ening [facility] Start: 01-17-1984 Hepatitis C screening Hepatitis C Sc angelning [facility] Start: 01-17-1984 HIV screening HIV Screening [facility] Start: 1966 Screening for malign ant neoplasm of colon [facility] End: 12-22-2024 BD DXA TRABECULAR BONE SCORE (TBS) BD DXA TRABECULAR BONE SCORE (TBS) Radiology Routine Symptomatic menopausal or female climacteric states 1 Occurrences starting 11/23/2023 until 12/22/2024 [facility] Comment on above: 1 Occurrences starti ng 11/23/2023 until 12/22/2024 End: 12-22-2024 DXA Skeletal system.axial Views for bone density DXA-AXIAL SKELETON Radiology Routine Symptomatic menopausal or female climacteric states 1 Occurrences starting 11/23/2023 until 12/22/2024 [facility] Work Phone: Comment on above: 1 Occurrences starti ng 11/23/2023 until 12/22/2024 IGP, APT HPV,RFX 16/18,45 IGP, APT HPV,RFX 16/18,45 Lab Routine Cervical cancer screening Screening for HPV (human papillomavirus) Ordered: 05/05/2024 [facility] Work Phone: Comment on above: Ordered: 05/05/2024 Supine abdominal X-ray [facility] End: 02-16-2025 XR Hand - bilateral PA and Lateral XR HAND 2V PA/LAT BILATERAL Radiology Routine Arthritis 1 Occurrences starting 01/18/2024 until 02/16/2025 [facility] Comment on above: 1 Occurrences starti ng 01/18/2024 until 02/16/2025 End: 02-16-2025 XR Sacroiliac Joint Views XR SACROILIAC JOINTS 2V AP PELVIS/FERGUESON Radiology Routine Arthritis 1 Occurrences starting 01/18/2024 until 02/16/2025 [facility] Work Phone: Comment on above: 1 Occurrences starti ng 01/18/2024 until 02/16/2025 End: 02-16-2025 XR Shoulder - left 2 Views XR SHOULDER LIMITED 2V AP/TRUE AP LEFT Radiology Routine Arthritis 1 Occurrences starting 01/18/2024 until 02/16/2025 [facility] Comment on above: 1 Occurrences starti ng 01/18/2024 until 02/16/2025 End: 02-16-2025 XR Shoulder - right 2 Views XR SHOULDER [id number] AP/TRUE AP RIGHT Radiology Routine Arthritis 1 Occurrences starting 01/18/2024 until 02/16/2025 [facility] Comment on above: 1 Occurrences starti ng 01/18/2024 until 02/16/2025 Immunizations Immunization Date Immunization Notes Care Provider Angeles wilson 04-04-2020 SARS-CoV-2 (COVID-19 ) mRNA-3034 vaccine Zacarias COBIAN [facility] 03-07-2020 SARS-CoV-2 (COVID-19 ) mRNA-2383 vaccine Zacarias COBIAN [facility] 12-07-2015 influenza virus vaccine, unspecified formulation Kristy Evangelista MD Work Phone: [facility] Payers Date Payer Category Payer Self-pay [id number] 2017 Private Health Insurance AET[employer] AETNA POS [id number] 2017-Present [phone] [address] [place] [address] POS [id number] 2003 Managed Care O (unspecified) [employer] [id number] 1966 Unknown [id number] 1966 Unknown [id number] [id number] 1966 Unknown [id number] [id number] 1966 Unknown [id number] [id number] 1966 Unknown [id number] [id number] 1966 Unknown [id number] [id number] 1966 Unknown [id number] [id number] 1966 Unknown [id number] 1959 Private Health Insurance [id number] Unknown [id number] Unknown [id number] Social History Date Type Detail Facility Start: 11-03-2018 End: 06-22-2020 Tobacco smoking status KYIS Ex-smoker (finding) [facility] Start: 1965 Sex Assigned At Female [facility] Start: 11-23-2023 End: 05-05-2024 Sex Assigned At [facility] Start: 11-23-2023 Tobacco smoking stat us [facility] Never smoked tobacco [facility] Start: 09-24-2023 End: 11-23-2023 Tobacco use and exposure Smokeless tobacco non-user [facility] Start: 11-23-2023 End: 05-05-2024 Alcoholic beverage intake Current drinker of alcohol (finding) [facility] Start: 11-23-2023 End: 05-05-2024 History of Social function [facility] Start: 11-23-2023 [facility] Start: 1965 Sex assigned at Not on file C [facility] Adult Depression Screening Assessment 2 [facility] History of tobacco use Current smoker [facility] History of tobacco use Cigarette Smoker [facility] Start: 09-24-2023 Alcohol Comment wine or beer - a couple per month [facility] Start: 07-19-2024 End: 07-22-2024 Sex Female (finding) [facility] Goals Date Patient Goal Desired Activity /State Clinical Notes 07-24-2020 to 07-19-2024 Note Date & Type Note Facility 07-19-2024 Evaluation note Diagnosis Onset Date Resolution IBS (irritable bowel syndrome) acute July 19, 2024 1 0:[facility] Work Phone: 1(145) 664-188005-02-2025 NoteUT Cardiology - [facility] Subjective Essie Steele is a [...] sleep apnea 07/03/2023 CARLITO=9.5 events/hour; Leroy SpO2=84%; Vxmqxp=048.0 lbs; BMI=35.7 kg/m2, Home Sleep Apnea Testing on 07/01/2023 at [facility] Past Surgical History: Procedure Laterality Date SECTION, [...] Obesity, BMI 35.4 kg/m??? (more content not included)...[facility]03-13-2025 History of Present illness Narrative* Wolf Medley [...] Review Audit Reviewed by Vonnie Gillespie MA ([employer]) on 05/05/24 at 1429 Medication Order Taking? Sig Documenting Provider Last Dose Status aspirin 81 MG EC tablet [id number] Take 81 mg by mouth Daily Lester Harrell DPM Active celecoxib (CeleBREX) 100 MG capsule [id number] Take 100 mg by mouth in the morning and 100 mg before bedtime. Wolf Medley MD Active desvenlafaxine (Pristiq) 100 MG 24 hr tablet [id number] Take 100 mg by mouth Daily Lester Harrell DPM Active Discontinued 05/05/24 1428 dilTIAZem CD (Cardizem CD) 240 MG 24 hr capsule [id number] Take 240 mg by mouth Daily Wolf Medley MD Active Discontinued 05/05/24 1428 Multiple Vitamins-Minerals (CENTRUM SILVER PO) [id number] Take 1 tablet by mouth Daily Lester Harrell DPM Active pantoprazole (ProtoNix) 40 MG EC tablet [id number] Take 40 mg by mouth in the [...] Print requisition? Answer: Yes documented in this encounterMissouri Rehabilitation [id number] Telephone encounter Note* Telephone Encounter - Annika Cruz - 02/29/2024 3:46 PM EST 11/23/2023 03/14/2024 Patient phones requesting refills as follows: Requested Prescriptions Pending Prescriptions Disp Refills estradiol (VIVELLE-DOT) 0.0375 mg/24 hr patch 30 Patch 1 Sig: Apply 1 Patch as directed two times a week. Please review and advise. [facility]01-06-2025 Miscellaneous Notes* Telephone Encounter - Annika Cruz - 02/29/2024 3:46 PM EST 11/23/2023 03/14/2024 Patient phones requesting refills as follows: Requested Prescriptions Pending Prescriptions Disp Refills estradiol (VIVELLE-DOT) 0.0375 mg/24 hr patch 30 Patch 1 Sig: Apply 1 Patch as directed two times a week. Please review and advise. documented in [facility]Tr[facility] Telephone encounter Note * Telephone Encounter [...] Open Future (Single Instance) Lab Orders None [facility]01-06-2025 Miscellaneous Notes* Telephone Encounter - Kori [...] Instance) Lab Orders None documented in this encounterTr[facility]ull [facility]12-16-2024 History of Present illness Narrative* Renny Baron MD - 02/08/2024 9:30 AM EST Images from the original note were not included. VIRTUAL VISIT PROGRESS NOTE This is a virtual visit using [employer] Zoom Video Visit. It required patient- provider interaction for the medical decision making as documented below. I have communicated my name and active licensure. The patient's identity and physical location wereverified at the time of this visit. Either the patient or their legal sales representative aircraft has been informed of the risks and [...] AI <0.2 Sm Antibody Negative Negative Ribosomal FIRE HOSE CURER Ab <1.0 AI <0.2 Ribosomal FIRE HOSE CURER Qualitative Negative Negative Chromatin Ab <1.0 AI <0.2 Chromatin Ab Qual Negative Negative SSA Antibody Qual Negative Negative Anti-SSA <1.0 AI <0.2 Anti-SSB <1.0 AI <0.2 FIRE HOSE CURER Antibody QUAL Negative Negative Scleroderma Ab Qual [...] to PT: she will get this at [facility] - If not improved, then CSI [...] the date of the service which included [id number] patient care, completing clinical documentation, and communicating results to the patient/family/caregiver Renny Baron MD documented in this encounterTr[facility]12-16-2024 NoteHNO ID: [id number] Author: RENNY BARON MD Service: ? Author Type: Physician Type: Progress Notes Filed: 02/08/2024 09:59 Note Text: VIRTUAL VISIT PROGRESS NOTE This is a virtual visit using [employer] Video Visit. It required patient-provider interaction for the medical decision making as documented below. I have communicated my name and active licensure. The patient's identity and physical location were verified at the time of this visit. Either the patient or their legal sales representative aircraft has been informed of the risks and [...] No data to dis (more content not included)...[facility] 01-20-2024 Telephone encounter Note* Telephone Encounter - Kori Banks RN - 01/20/2024 11:37 AM EST Spoke with pt and confirmed she would like x-ray orders faxed to [address] [address]. Called [facility] outpatient radiology dept and obtained fax number of [phone]. X-ray orders from 01/18/2024 faxed with confirmation of fax receipt received. Advised pt to please let us know once x-rays are completed, so that we can ensure that we received the results. Pt verbalized understanding. [facility]11-27-2024 Miscellaneous Notes* Telephone Encounter - Kori Banks RN - 01/20/2024 11:37 AM EST Spoke with pt and confirmed she would like x-ray orders faxed to [address], [place] [address]. Called [facility] outpatient radiology dept and obtained fax number of [phone]. X-ray orders from 01/18/2024 faxed with confirmation of fax receipt received. Advised pt to please let us know once x-rays are completed, so that we can ensure that we received the results. Pt verbalized understanding. documented in this encounterTrumbull [facility] Hospital11-25-2024 History of Present illness Narrative* Renny Baron MD - 01/18/2024 10:00 AM EST Images from the original note were not included. Rheumatology CONSULTATION Date of Service: 01/18/2024 Patient: Essie Steele Primary Care Physician: Brett Paniagua ([place], [place]) Last Rheumatology visit: None at [facility] Referring Provider: Kristy Evangelista [address] [facility] [address] Essie Steele is here today at request of Dr. Evangelista specifically for consultation of my opinion in regards to the chief complaint listed below. Correspondence will be shared today via the [facility] electronic health record or through regular [...] XR HAND 2V PA/LAT BILATERAL XR SHOULDER [id number] AP/TRUE AP RIGHT XR SHOULDER LIMITED 2V [...] which included preparing to see the patient, [id number] patient care, completing clinical documentation, obtaining and/or reviewing separately obtained history, performing a medically appropriate examination, counseling and educating the pat ient/family/caregiver, ordering medications, tests, or procedures, and communicating results to thepatient/family/caregiver. Renny Baron MD PhD Rheumatology documented in this encounterTrumbull [facility] Hospital11-25-2024 NoteHNO ID: [id number] Author: RENNY BARON MD Service: ? Author Type: Physician Type: Progress Notes Filed: 01/18/2024 18:39 Note Text: Rheumatology CONSULTATION Date of Service: 01/18/2024 Patient: Essie Steele Primary Care Physician: Brett Paniagua ([place], [place]) Last Rheumatology visit: None at [facility] Referring Provider: Kristy Evangelista [address] [facility] [address] Essie Steele is here today at request of Dr. Evangelista specifically for consultation of my opinion in regards to the chief complaint listed below. Correspondence will be shared today via the [employer] electronic health record or through regular mail, [...] HERNANDEZ with going u (more content not included)...[facility] 01-18-2024 History of Present illness Narrative* [...] PATIENT PRESENTS WITH AN IMPLANTABLE OR ATTACHED HANDS HANGER: No RADIOLOGY DEPARTMENT: Bone Density PERIPHERAL IV DATA: Not applicable SIGNED BY: RT Sammy(R) January 18, 2024 8:58 AM documented in this encounterTrumbull [facility] Hospital11-25-2024 NoteHNO ID: [id number] Author: FLORENCIA CALDERON RT(R) Service: ? Author [...] PATIENT PRESENTS WITH AN IMPLANTABLE OR ATTACHED HANDS HANGER: No RADIOLOGY DEPARTMENT: Bone Density PERIPHERAL IV DATA: Not applicable SIGNED BY: RT Sammy(R) January 18, 2024 8:58 [facility]10-09-2024 NoteCardiovascular Medicine [facility] SUBJECTIVE Chief Complaint Patient presents with [...] had follow up for titration study. 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 Ramirez noted a [...] (around 06/01/2024). Susanne Paz NP [facility] Note Patient here for 6 mo follow [...] pain. All other systems reviewed and are negative.[facility] 11-23-2023 Instructions* Patient Instructions* Kristy Evangelista MD [...] your usual activities immediately. documented in this encounterTrumbull [facility] Hospital09-30-2024 History of Present illness Narrative* Kristy [...] thinks lining was too thick TAHBSO at [place] Dr Castro had an TVUS and revealed [...] Denies prior Bx.Last mammo 4-6 wks at [facility]. BONE: Denies FMH OP/fx. No PMH [...] she thought she had URI bchusband and malik russo switched to asa after wearing heart monitor [...] DISEASE Kristy Evangelista M.D.,F.A.C.P. documented in this encounterTrumbull Memorial Hospital09-30-2024 NoteHNO ID: [id number] Author: KRISTY EVANGELISTA MD Service: ? Author [...] thinks lining was too thick TAHBSO at [place] Dr Castro had an TVUS and revealed [...] prior Bx. [facility] hospital. BONE: Denies FMH OP/fx. No PMH [...] atrial fibrillation (HC (more content not included)... [facility]08-01-2024 History of Present illness Narrative* Lester Harrell DPM - 09/24/2023 9:30 AM EDT Reason for [...] with 0 degrees dorsiflexion. SHOE GEAR EVALUATION: [employer] athletic shoes. Imaging: Foot X-ray: 09-24-2023: Right [...] voiced understanding. OTC insoles: Patient was shown [employer]oles to wear in All shoes [...] 2-3 weeks for recheck. documented in this encounterMissouri [facility] [id number] NoteEpworth Sleepiness Scale Please rate the following [...] sleep... Acting out your dreams... Difficulty ambulating... Incontinence...[facility]05-08-2024 NotePt given verbal and written instructions and demo of HSAT device. Pt to return unit to registration 07/02 Quality of life Answer each question by shading in the [place] completely. Choose only one answer for each [...] 70 75 80 85 90 95 100 [facility]08-15-2023 Evaluation note* Encounter Date Diagnosis Assessment Notes Treatment Notes Treatment Clinical Notes Sep, GERD without esophagitis (ICD-10 - K21.9) Sep, Irritable bowel syndrome with diarrhea (ICD-10 - K58.0) Sep, Other Patient still having diarrhea and cramping in the lower abd area. Patient reports having these episodes at least one time weekly. Patient can restart dicyclomine 20mg TID PRN. [employer] Other 07-07-2022 Evaluation note* Encounter Date Diagnosis Assessment Notes Treatment Notes Treatment Clinical Notes Aug, Crohns disease (ICD- 10 - K50.90) Aug, Viral gastroenteriti s (ICD-10 - A08.4) Continue prednisone as prescribed by PCP Start Cipro 500mg bid for 7 days Patient to call when she finished prednisone and cipro if symptoms do not improve. Follow up in 4 weeks. [employer] Other 06-01-2021 History general Narrative - Reported* Type Description Date Medical History Crohns disease Surgical History C section X2 Surgical History hysterectomy 07/2020 [employer] Other Evaluation + Plan note No data available for this section [facility] General Surgery [place] Evaluation noteNo Assessments Information Available [facility] Diagnosis Symptomatic menopausal or [...] unspecified, site unspecified [facility] Encounter for long-term (current) use of medications- Primary Encounter for long-term (current) use of other medications Crohn's disease of large intestine without complication (HCC) Regional enteritis of large intestine Arthritis Arthropathy, unspecified, site unspecified Enthesitis Enthesopathy of unspecified site Arthralgia, unspecified joint [facility] Diagnosis Symptomatic menopausal or female climacteric states [facility] Diagnosis Arthralgia, unspecified joint- Primary Enthesitis Enthesopathy of unspecified site Encounter for long-term (current) use of medications Encounter for long-term (current) use of other medications Carpal tunnel syndrome of left wrist Carpal tunnel syndrome Positive KAELA (antinuclear antibody) Other and unspecified nonspecific immunological findings documented [facility] this [facility]* Diagnosis Pain of right foot- Primary Pain of right heel Pain of left foot Pain of left heel Bilateral plantar fasciitis documented [facility] encounter [facility]* Diagnosis Well woman exam with routine gynecological exam Routine gynecological examination Cervical cancer screening Screening for malignant neoplasm of the cervix Screening for HPV (human papillomavirus) Special screening examination for human papillomavirus (HPV) documented in this encounter [facility] HealthcareEvaluation noteNo assessment information availableFulton County [facility] Center Work Phone: Hospital Discharge instructions No data available for this section [facility] General Surgery [place] Progress note No data available for this section [facility] Surgery [place] Reason for referral (narrative)* Diagnostic Procedure Only (Routine) - Closed Specialty Diagnoses / Procedures Referred By Contac t Referred To Contact XR IMAGING Diagnoses Symptomatic menopausal or female climacteric states Procedures DXA-AXIAL SKELETON DXA BONE DENSITY STUDY 1/> SITES AXIAL Kristy Jacobson MD [address] [place] [address] Xr Imaging [place] [address] Referral ID Status Reason Start Date Expiration Date V isits Requested Visits Authorized [id number] Closed Auto-Generate d Referral 11/23/2023 12/22/2024 1 1 [facility] for referral (narrative)No reason for referral information availableFulton County Health Center Work Phone: Reason for visit Narrative* Diagnostic Procedure Only (Routine) - Closed Specialty Diagnoses / Procedures Referred By Contac t Referred To Contact XR IMAGING Diagnoses Symptomatic menopausal or female climacteric states Procedures DXA-AXIAL SKELETON DXA BONE DENSITY STUDY 1/> SITES AXIAL Kristy Jacobson MD [address] [place] [address] Xr Imaging [facility]95 Referral ID Status Reason Start Date Expiration Date V isits Requested Visits Authorized [id number] Closed Auto-Generate d Referral 11/23/2023 12/22/2024 1 1 [facility] Summary Purpose Family History Relationship Condition Age at Onset Recorded Date/T liza father Malignant neoplasm Unknown Not Specified Chronic obstructive pulmonary disease Un known sister Malignant neoplasm of tongue Unknown Relationship Condition Age at Onset Recorded Date/T liza father Malignant neoplasm Unknown mother Chronic obstructive pulmonary disease Unk nown sister Malignant neoplasm of tongue Unknown father Unknown mother Unknown Advance Directives Advance Directive Response Recorded [...] COMPLEX 45 MINS Renny Baron MD [address] [phone] [facility] [place] [address] Referral ID Status Reason Start Date Expiration Date Visits Requested Visits Authorized [id number] Pending Review Auto-Generat ed Referral 4 01/17/2025 1 1 Specialty Diagnoses / Procedures Referred By Contac t Referred To Contact XR IMAGING Diagnoses Arthritis Procedures XR SHOULDER LIMITED 2V AP/TRUE AP LEFT RADEX SHOULDER COMPLETE MINIMUM 2 VIEWS Renny Baron MD [address] [phone] X[facility] [place] [address] Referral ID Status Reason Start Date Expiration Date Visits Requested Visits Authorized [id number] New Request Auto-Generat ed Referral 4 02/16/2025 1 1 Specialty Diagnoses / Procedures Referred By Contac t Referred To Contact XR IMAGING Diagnoses Arthritis Procedures XR SHOULDER [id number] AP/TRUE AP RIGHT RADEX SHOULDER COMPLETE MINIMUM 2 VIEWS Renny Braon MD [address] [place] [address] Xr Imaging [facility]95 Referral ID Status Reason Start Date Expiration Date Visits Requested Visits Authorized [id number] New Request Auto-Generat ed Referral 4 02/16/2025 1 1 Specialty Diagnoses / Procedures Referred By Contac t Referred To Contact XR IMAGING Diagnoses Arthritis Procedures XR HAND 2V PA/LAT BILATERAL RADEX HAND 2 VIEWS Renny Baron MD [address] [place] [address] Xr Imaging [place] [address] Referral ID Status Reason Start Date Expiration Date Visits Requested Visits Authorized [id number] New Request Auto-Generat ed Referral 4 02/16/2025 1 1 Specialty Diagnoses / Procedures Referred By Contac t Referred To Contact XR IMAGING Diagnoses Arthritis Procedures XR SACROILIAC JOINTS 2V AP PELVIS/FERGUESON RADIOLOGIC EXAMINATION SACROILIAC JNTS <3 VIEWS Renny Baron MD [address] [place] [address] Xr Imaging [place] [address] Referral ID Status Reason Start Date Expiration Date Visits Requested Visits Authorized [id number] New Request Auto-Generat ed Referral 4 02/16/2025 1 1 Specialty Diagnoses / Procedures Referred By Contac t Referred To Contact Rheumatology Diagnoses Crohn's disease of large intestine without complication (HCC) Arthritis Procedures CONSULT TO RHEUM/IMMUN DISEASE OFFICE/OUTPATIENT [facility] 60 MINUTES Kritsy Evangelista MD [address] [place] [address] Referral ID Status Reason Start Date Expiration Date Visits Requested Visits Authorized [id number] Authorized PCP Requested Referral 11/23/2023 11/22/2024 1 1 Specialty Diagnoses / Procedures Referred By Contac t Referred To Contact XR IMAGING Diagnoses Symptomatic menopausal or female climacteric states Procedures DXA-AXIAL SKELETON DXA BONE DENSITY STUDY 1/> SITES AXIAL SKEL Kristy Evangelista MD [address] [place] [phone] Xr Imaging [place] [address] Referral ID Status Reason Start Date Expiration Date Visits Requested Visits Authorized [id number] Authorized Auto-Generat ed Referral 11/23/2023 12/22/2024 1 1 Additional Source Comments INFORMATION SOURCE (unrecogn ized section and content) DATE CREATED AUTHOR 04/25/2018 [facility] DATE CREATED AUTHOR AUTHOR'S ORGANIZ ATION 07/07/2022 [facility] DATE CREATED AUTHOR AUTHOR'S ORGANIZ ATION 02/10/2024 [facility] DATE CREATED AUTHOR AUTHOR'S ORGANIZ ATION 03/28/2024 [facility] DATE CREATED AUTHOR AUTHOR'S ORGANIZ ATION 05/08/2024 [facility] DATE CREATED AUTHOR AUTHOR'S ORGANIZ ATION 06/29/2024 [facility] DATE CREATED AUTHOR AUTHOR'S ORGANIZ ATION 07/23/2024 [facility] REASON FOR VISIT (unrecogniz ed section and content) Reason Comments Joint Pain Specialty Diagnoses / Procedures Referred By Contmike t Referred To Contact Rheumatology Diagnoses Crohn's disease of large intestine without complication (HCC) Arthritis Procedures CONSULT TO RHEUM/IMMUN DISEASE OFFICE/OUTPATIENT [facility] 60 MINUTES Kristy Evangelista MD [address] [place] [address] Referral ID Status Reason Start Date Expiration Date V isits Requested Visits Authorized [id number] Closed PCP Requested Referral 11/23/2023 11/22/2024 1 [...] or prosecute any alcohol or drug abuse patient.[facility] HospitalIn the event this information is protected by the Federal Confidentiality of Alcohol and Drug Abuse Patient Records regulations: The Federal rules restrict any use of the information to criminally investigate or prosecute any alcohol or drug abuse patient.[facility] HospitalIn the event this information is protected by the Federal Confidentiality of Alcohol and Drug Abuse Patient Records regulations: The Federal rules restrict any use of the information to criminally investigate or prosecute any alcohol or drug abuse patient.[facility] HospitalIn the event this information is protected by the Federal Confidentiality of Alcohol and Drug Abuse Patient Records regulations: The Federal rules restrict any use of the information to criminally investigate or prosecute any alcohol or drug abuse patient.[facility] HospitalIn the event this information is protected by the Federal Confidentiality of Alcohol and Drug Abuse Patient Records regulations: The Federal rules restrict any use of the information to criminally investigate or prosecute any alcohol or drug abuse patient.[facility] HospitalIn the event this information is protected by the Federal Confidentiality of Alcohol and Drug Abuse Patient Records regulations: The Federal rules restrict any use of the information to criminally investigate or prosecute any alcohol or drug abuse patient.[facility] HospitalIn the event this information is protected by the Federal Confidentiality of Alcohol and Drug Abuse Patient Records regulations: The Federal rules restrict any use of the information to criminally investigate or prosecute any alcohol or drug abuse patient.[facility] HospitalIn the event this information is protected by the Federal Confidentiality of Alcohol and Drug Abuse Patient Records regulations: The Federal rules restrict any use of the information to criminally investigate or prosecute any alcohol or drug abuse patient.[facility] HospitalIn the event this information is protected by the Federal Confidentiality of Alcohol and Drug Abuse Patient Records regulations: The Federal rules restrict any use of the information to criminally investigate or prosecute any alcohol or drug abuse patient.[facility] Patient Care team informatio n (unrecognized section and content) Team Status: Active Member Role Status Rosy Paniagua MD Primary Care Provider Active Team Status: Active Member Role Status Rosy Paniagua MD Primary Care Provider Active Start: August 16, 2024 Mar Stanton DO Attending Provider Active Sta rt: August 16, 2024 Team Status: Inactive Member Role Status Rosy Paniagua MD Primary Care Provider Active Start: October 26, 2024 End: October 26, 2024 Mar Stanton DO Attending Provider Active Sta rt: October 26, 2024 End: October 26, 2024 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 [place] [address] [place] [phone] PCP - General Family Medicine 09/24/23 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 Start Date End Date Brett Paniagua MD [address] [place] [address] PCP - General Family Medicine 09/24/23 Team Status: Active Member Role Status Rosy Paniagua MD Primary Care Provider Active Team Status: Inactive Member Role Status Rosy Paniagua MD Primary Care Provider Active Start: July 19, 2024 End: July 19, 2024 Philippe Wise MD Attending Provider Active S tart: July 19, 2024 End: July 19, 2024 Team Status: Inactive Member Role Status Rosy Paniagua MD Primary Care Provider Active Start: July 21, 2024 End: July 21, 2024 Philippe Wise MD Attending Provider Active S tart: July 21, 2024 End: July 21, 2024 Team Status: Active Member Role Status Rosy Paniagua MD Primary Care Provider Active Start: August 16, 2024 Mar Stanton DO Attending Provider Active Sta rt: August 16, 2024 Team Status: Inactive Member Role Status Dates Brett Paniagua MD Primary Care Provider Active Start: October 26, 2024 End: October 26, 2024 Mar Stanton DO Attending Provider Active Sta rt: October 26, 2024 End: October 26, 2024 Goals (unrecognized section and content) Goals [...] BE BASED ON THE PRIMARY CLINICAL RECORDS. [facility] [employer] provides no warranty or guarantee of the accuracy or completeness of information in this document.
--- OUTSIDE RECORDS SUMMARY | 2024-11-16 10:36 | XMS_ITS | Encounter Summary ---
Author Organization [facility] Address [address] [place] [address] Care Team Providers Care Audio/Visual Manager Name Role Phone Unavailable Primary Care Provider Unavailabl e Source Comments In the event this information is protected by the Federal Confidentiality of Alcohol and Drug AbusePatient Records regulations: The Federal rules restrict any use of the information to criminally investigate or prosecute any alcohol or drug abuse patient.[facility] Reason for Visit * Reason Comments Received Outside Medical Records Encounter Details Date Type Department Care Team (Late st Contact Info) Description 02/02/2024 Telephone Rheumatology [address] [phone] Renny Baron MD [address] [phone] Received Outside Medical Records Social History Tobacco [...] [email or web address] Last address used for calculation [address] [...] 2:43 PM EST Received XR report from [facility] collected on 01/26. Scanned for review. XR sacroilinc joint WILMA XR shoulder WILMA min 2v documented in this encounter Plan of Treatment Not on file documented as of this encounter Visit Diagnoses Not on filedocumented in this encounter
--- OUTSIDE RECORDS SUMMARY | 2024-11-16 10:36 | XMS_ITS | Encounter Summary ---
Author Organization [facility] Address [address] [place] [address] Care Team Providers Care Meat Seafood Associate Name Role Phone Unavailable Primary Care Provider Unavailabl e Source Comments In the event this information is protected by the Federal Confidentiality of Alcohol and Drug AbusePatient Records regulations: The Federal rules restrict any use of the information to criminally investigate or prosecute any alcohol or drug abuse patient.[facility] Encounter Details Date Type Department Care Team (Late st Contact Info) Description 02/02/2024 Patient Msg Rheumatology [address] [place] [phone] Renny Baron MD [address] [phone] xrays Social History Tobacco Use Types Packs/Day [...] is lower risk 7 01/18/2024 Data from: [email or web address] Last address used for calculation [address] [facility] 01/18/2024 Comments No Sex and Gender [...]
--- OUTSIDE RECORDS SUMMARY | 2024-11-16 10:36 | XMS_ITS | Clinical Summary ---
Author Organization [facility] Address [address] [place] [address] Care Team Providers Care Needle Maker Name Role Phone Brett Paniagua MD Primary Care Provider [phone] Allergies Active Allergy Reactions Criticality Noted Date [...] 24 Overview (07/03/2023): CARLITO=9.5 events/hour; Leroy SpO2=84%; Vovdyt=228.0 lbs; BMI=35.7 kg/m2, Home Sleep Apnea Testing on 07/01/2023 at [facility] Atrial fibrillation 03/04/2023 Essential hypertension 06/12/2022 Family History Medical History Relation Name Comments [...] Smear 04/12/2021 04/12/2018 COVID-19 Vaccine (3 - 2024-2 6 season) 2024 04/04/2020, 03/07/2020 Influenza Vaccine (#1) 2024 HIB [...] complete this topic Insurance [employer] Care Teams Needle Maker Relationship Specialty Start Date End Date Brett Paniagua MD [address] [place] [address] PCP - General 03/30/23
--- OUTSIDE RECORDS SUMMARY | 2024-11-16 10:36 | XMS_ITS | Patient Health Record ---
Author Organization [facility] in [place] Address [address] [place] [address] Care Team Providers Care Military Logistics Specialist Name Role Phone KAYY PANIAGUA Primary Care Provider Owen Busby Unavailable [phone] Benji Paniagua Unavailable [phone] Allergies Allergen (clinical drug ingredient) Drug/Non Drug Allergy documented on EMR Reaction Allergy Type Onset Date Status meperidine Demerol vomiting Drug Allergy Active Results Component Value Reference Range Notes CBC AUTO DIFF Reviewed date:03/14/2024 07:09:55 PM Interpretation: Performing Lab: Notes/Report: [facility] , White Blood Count 13.0 4.0-11.0 [...] 3/uL Performing Lab: see note ML - [facility] LB PROF 14(COMP METB) Reviewed date:03/14/2024 07:09:55 PM Interpretation: Performing Lab: Notes/Report: [facility] , Sodium 140 136-145 mmol/L Potassium 3.8 3.5-5.1 mmol/L Chloride 102 98-107 mmol/L Carbon Dioxide 28.7 21.0-32.0 mmol/L Anion Gap 13.1 Glucose 92 74-106 mg/dL Blood Urea Nitrogen 17.0 7.0-18.0 mg/dL Creatinine 0.93 0.55-1.02 mg/dL Estimated GFR ( Nasrin >60 >=60 mL/mi n/1.73m 2 Estimated GFR (Non- Gay >60 >=60 mL/mi n/1.73m 2 BUN Creatinine Ratio 18.3 Calcium 9.0 8.5-10.1 mg/dL Bilirubin Total 0.4 0.2-1.0 mg/dL Aspartate Amino Transferase 15 15-37 U/L Alanine Aminotransferase 26 14-59 U/L Alkaline Phosphatase 142 46-116 U/L Total Protein 7.7 6.4-8.2 g/dL Albumin Level 3.5 3.4-5.0 g/dL Globulin 4.2 Albumin Globulin Ratio 0.8 Performing Lab: see note ML - [facility] LB XR pelvis 1-2V Reviewed date:01/28/2024 12:43:16 PM Interpretation: Performing Lab: Notes/Report: Source Facility: [facility] [place] [address] [address] XRay Report Signed Patient: MALU STEELE MR#: [id number] : 1965 Acct:[id number] Age/Sex: 59 / F ADM Date: 01/27/24 Loc: RAD Attending Dr: MarsStaff Physician Corona Ordering Physician: Madhav Otto M.D. Date of Service: 01/27/24 Procedure(s): XR pelvis 1-2V Accession Number(s): [id number] cc: Kayy Paniagua M.D.; Madhav Otto M.D. [place] [address] Patient Name: MALU STEELE MRN: [id number] date: 1965 Sex: F Assigned Patient Location: [facility] Current Patient Location: Accession/Order Number: [id number] Exam Date: 01/27/2024 14:45 Report Date: 01/28/2024 [...] M.D. Signed By: 01/28/24726 DD/ 3 TD/TT: Client Executive: EDGAR hand WILMA 2V Reviewed date:01/27/2024 05:36:58 PM Interpretation: Performing Lab: Notes/Report: Source Facility: [place] [address] [place] [address] XRay Report Signed Patient: MALU STEELE MR#: [id number] : 1965 Acct:[id number] Age/Sex: 59 / F ADM Date: 01/27/24 Loc: DREW Attending Dr: MarsStaff Physician Corona Ordering Physician: Madhav Otto M.D. Date of Service: 01/27/24 Procedure(s): XR hand WILMA 2V Accession Number(s): [id number] cc: Kayy Paniagua M.D.; Madhav Otto M.D. [place] [address] Patient Name: MALU STEELE MRN: [id number] date: 1965 Sex: F Assigned Patient Location: [facility] Current Patient Location: RAD Accession/Order Number: [id number] Exam Date: 01/27/2024 14:45 Report Date: 01/27/2024 [...] By: Helen Mckee M.D. Signed By: 01/27/24 1600 DD/ 1558 TD/TT: Client Executive: XR sacroiliac joint WILMA Reviewed date:01/27/2024 05:36:58 PM Interpretation: Performing Lab: Notes/Report: Source Facility: [place] [address] [place] [address] XRay Report Signed Patient: MALU STEELE MR#: [id number] : 1965 Acct:[id number] Age/Sex: 59 / F ADM Date: 01/27/24 Loc: RAD Attending Dr: MarsStaff Physician Corona Ordering Physician: Madhav Otto M.D. Date of Service: 01/27/24 Procedure(s): XR sacroiliac joint WILMA Accession Number(s): [id number] cc: Kayy Paniagua M.D.; PhysicianMadhav M.D. [place] [address] Patient Name: MALU STEELE MRN: [id number] date: 1965 Sex: F Assigned Patient Location: [facility] Current Patient Location: [facility] Accession/Order Number: [id number] Exam Date: 01/27/2024 14:45 Report Date: 01/27/2024 [...] Mckee M.D. Signed By: 01/27/24 1559 DD/ 155 TD/TT: Client Executive: XR shoulder WILMA min 2V Reviewed date:01/27/2024 05:36:58 PM Interpretation: Performing Lab: Notes/Report: Source Facility: [place] [address] XRay Report Signed Patient: MALU STEELE MR#: [id number] : 1965 Acct:[id number] Age/Sex: 59 / F ADM Date: 01/27/24 Loc: DREW Attending Dr: Non-Staff Physician Corona Ordering Physician: Madhav Otto M.D. Date of Service: 01/27/24 Procedure(s): XR shoulder WILMA min 2V Accession Number(s): [id number] cc: Kayy Paniagua M.D.; PhysicianMadhav M.D. [facility] [place] [address] Patient Name: MALU STEELE MRN: [id number] date: 1965 Sex: F Assigned Patient Location: [facility] Current Patient Location: [facility] Accession/Order Number: [id number] Exam Date: 01/27/2024 14:45 Report Date: 01/27/2024 [...] Signed By: 01/27/24 1602 DD/ 1600 TD/TT: Client Executive: XR chest 2V Reviewed date:09/25/2024 07:38:17 PM Interpretation: Performing Lab: Notes/Report: Source Facility: [place] [address] XRay Report Signed Patient: MALU STEELE MR#: [id number] : 1965 Acct:[id number] Age/Sex: 59 / F ADM Date: 09/23/24 Loc: RAD Attending Dr: Kayy Paniagua M.D. Ordering Physician: Kayy Paniagua M.D. Date of Service: 09/23/24 Procedure(s): XR chest 2V Accession Number(s): [id number] cc: Kayy Paniagua M.D. [place] [address] Patient Name: MALU STEELE MRN: [facility]:[id number] date: 1965 Sex: F Assigned Patient Location: [facility] Current Patient Location: [facility] Accession/Order Number: [id number] Exam Date: 09/23/2024 15:09 Report Date: 09/23/2024 15:10 At the request of: KAYY PANIAGUA MD Procedure: XR chest 2V Chest 2 views CLINICAL HISTORY: Pleurisy; R09.1 COMPARISON: None FINDINGS: Heart normal size. Lungs are clear. No free air. XR/XR chest 2V IMPRESSION: NO ACUTE CARDIOPULMONARY ABNORMALITY. Impression dictated by: Mauro Pal Jr., D.O. 09/23/2024 3:10 PM Dictation Location: [place] [address] Electronically authenticated by: [id number] Y Date: 09/23/2024 15:10 Dictated By: Mauro Pal M.D. Signed By: 09/23/24 1512 DD/ 1510 TD/TT: Client Executive: [place] Screen* Reviewed date:03/14/2024 07:09:55 PM Interpretation: Performing Lab: Notes/Report: [facility] , [place] Screen NEGATIVE NEGATIVE Performing Lab: see note ML - [facility] LB Reason For Referral Diagnosis 1 Sebaceous cyst (L72. 3) Referral Organization [facility] Referring Provider First Name Benji Referring Provider Last Name naida Referring Provider [facility] ildefonso Referred Provider Zacarias Syed Referred Provider Specialty General Surg [place] Referral Priority Routine Diagnosis 1 Mass of finger (R22. 30) Referral Organization [facility] Referring Provider First Name Benji Referring Provider Last Name Arcelia Referring Provider [facility] icisim Referred Provider Lilia Latham Referred Provider Specialty Orthopedic S urgery Referral Priority Routine Medications Medication SIG (Take, Route, Frequency, Duration) Notes Start Date End Date Status Aspirin 81 81 MG 1 tablet Orally Once a day Active Celecoxib 100 MG 1 capsule with food Oral bid; Duration: 30 days Active Centrum Adults - as directed Orally Active Desvenlafaxine Succinate ER 100 MG TAKE 1 TABLET BY MOUTH EVERY DAY FOR 30 DAYS; Duration: 90 Active Pantoprazole Sodium 40 MG 1 tablet Orall y BID; Duration: 30 days Active Dicyclomine HCl 20 MG 1 tablet Orally Th ree times a day PRN Active dilTIAZem HCl ER Coated Beads 240 MG 1 capsule Orally Once a day; Duration: 30 days Active Imitrex 100 MG 1 tablet at least 2 hours between doses as needed Orally Once a day 03/31/2024 Active Lisinopril 10 MG 1 tablet Oral Once a day; Duration: 21 days Active Ondansetron 4 MG 1 tablet on the tong ue and allow to dissolve Orally Q 6 hours PRN nausea PRN Active Immunizations Vaccine Route Administration Date Status [...] W/U Status Risk Notes Problem Sebaceous cyst (808823727) Sebaceous cyst (L72.3) Active confirmed Problem Pleurisy (191754661) Pleurisy (R09.1) Active confirmed Problem Obesity (299827616) Obesity (E66.9) Active confirmed Problem Essential hypertension (07063578) Essential hypertension (I10) Active confirmed Problem Anemia (562320137) Anemia (D64.9) Active confir med Problem Osteopenia (901644606) Osteopenia (M85.80) Active confirmed Problem Obstructive sleep apnea syndrome (25933709) LOAN (obstructive sleep apnea) (G47.33) Active confirmed Problem Irritable bowel syndrome (57210983) IBS (irritable bowel syndrome) (K58.9) Active confirmed Problem Degeneration of cervical intervertebral disc (56645101) Degenerative disc disease, cervical (M50.30) Active confirmed Problem Seasonal allergic rhinitis (824393980) Allergic rhinitis, seasonal (J30.2) Active confirmed Problem Crohn disease (98246580) Crohn disease (K50.90) Active confirmed Problem Atrial fibrillation (85277652) PAF (paroxysmal atrial fibrillation) (I48.0) Active confirmed Problem Gastro-esophageal reflux disease (828523200) Gastro-esophagea l reflux disease (K21.9) Active confirmed Vital Signs Heart Rate 67 /min 07/20/2024 Temperature 96.6 degrees Fahrenheit 07/20/2024 Respiratory Rate 16 /min 07/20/2024 Oximetry 97 % 09/23/2024 Blood pressure diastolic 80 mm Hg 10/05/2024 Height 67 in 10/05/2024 Blood pressure systolic 104 mm Hg 10/05/2024 Weight 225.2 lbs 10/05/2024 BMI 35.27 kg/m2 10/05/2024 Procedures Procedure Date Ordered Date Performed Result Body Sit e Home Sleep Study (Apnea Link Plus) 07/20/2024 08/16/2024 N /A Encounters Encounter Location Date Provider Diagnosis [facility] [address] [place] [address] 09/21/2024 Benji Hoy Anemia D64.9 and Finger mass, left R22.32 [facility] [address] [place] [address] 09/23/2024 Benji Hoy Pleurisy R09.1 [facility] [address] [place] [address] 03/11/2024 Benji Hoy Essential hypertensi on I10 and Sebaceous cyst L72.3 [facility] [address] [place] [address] 03/14/2024 Benji Hoy Acute bronchitis, unspecified organism J20.9 and Dyspnea R06.00 [facility] [place] [address] [place] [address] 07/20/2024 Owen Busby LOAN (obstructive sle ep apnea) G47.33 ; PAF (paroxysmal atrial fibrillation) I48.0 and Obesity E66.9 [facility] [address] [facility] [address] 10/05/2024 Benji Hoy Pleurisy R09.1 [facility] [place] [address] [facility] [place] [address] 12/14/2023 [facility] Pulmonary [facility] [address] [facility] [place] [address] 01/26/2024 [facility] [address] [facility] [place] [address] 03/02/2024 [facility] [address] [facility] [address] 03/21/2024 Benji y [facility] [address] [facility] [address] 03/31/2024 Benji Sauery [facility] [address] [facility] [address] 06/28/2024 Benji Sauery [facility] [address] [facility] [place] [address] 06/29/2024 [facility] [address] [facility] [address] 09/21/2024 Benji Hoy Mass of finger R22.3 0 Pulmonary [facility] [address] [facility] [place] [address] 09/28/2024 [facility] Assessments Encounter Date Diagnosis (ICD Code) Assessment Notes Treatment Notes Treatment Clinical Notes Section Notes 03/11/2024 Essential hypertension (ICD-10 - I10) 03/11/2024 Sebaceous cyst (ICD-10 - L72.3) 03/14/2024 Acute bronchitis, unspecified organism (ICD-10 - J20.9) Rest and drink more liquids, especially water. You may use a humidifier or vaporizer to help keep the drainage moist. Fyun-qqf-jxxgite Nasal Saline may help the stuffy and runny nose. Use Ibuprofen and or Tylenol as needed for fever, chills, body aches or pain. Children 5 years old should not be given utqp-iul-eykbmoc cough and cold medications such as guaifenesin and dextromethorphan. If you're over age 5, you may try caeb-nui-clqrjck cold medications such as guaifenesin and dextromethorphan, [...] LOAN, then I would order an autoCPAP 4-55naN3C. If more severe, will order attended titration [...] - R22.32) 09/23/2024 Pleurisy (ICD-10 - R09.1) 10/05/2024 Pleurisy (ICD-10 - R09.1) suspecitn grib pain alse- cdouble the celebrex 09/21/2024 Mass of finger (ICD-10 - R22.30) 07/20/2024 Obesity (ICD-10 - E66.9) Discussed weight loss - any weight loss can potentially help LOAN, and treatment of LOAN can also aid in weight loss. Zepbound is approved for LOAN, but only for exblymry-ds-udbkdq LOAN, so she would not currently qualify for it. She was encouraged to increase activity and monitor caloric intake. Plan Of Treatment Pending Test Test Name Order Date CMP (COMPLETE METABOLIC PANEL) 4 Urine Culture 03/24/2023 CBC W/AUTO DIFF 07/14/2022 ANTIBODY IDENTIFICATION 06/11/2022 CBC AUTO DIFF 03/23/2023 IRON 07/14/2022 MONO 03/14/2024 SNR 04 URINALYSIS 03/24/2023 XR CHEST 2 V 03/02/2023 XR CHEST 2 V 09/23/2024 THYROID PANEL (T4/TSH/FREE T3) 3 Insurance Providers Payer Name Payer Address Payer Phone Subscriber Number Group Number Insured Name Patient Relationship to Insured Coverage Start Date Coverage End Date [facility] [address] [place] [address] [id number] Bear Steele Spouse - patient is the [...]
--- NOTE | 2024-11-16 10:41 | MM_ITS ---
Patient Name: ESSIE STEELE MR#: [id number] : 1965 Exam Date: 11/16/2024 Ordering Doctor: DR BRANDEN FONG RADIOLOGY REPORT PROCEDURE: MM TOMOSYNTHESIS SCREENING BI COMPARISON: MM TOMOSYNTHESIS SCREENING BI, 09/18/2023. MG MAMM SCREEN 3D WILMA CAD, 05/11/2020. INDICATIONS: Screening Calculator Name NCI Breast Cancer Risk Assessment Tool 5 Year Breast Cancer Risk 1.10% Lifetime Breast Cancer Risk 6.30% Personal Breast Cancer No Personal Ovarian Cancer No Treatments None Family Cancers Sister with tongue cancer at age 37. LOCATION: [facility] BREAST COMPOSITION: There are scattered areas of fibroglandular density. FINDINGS: RIGHT BREAST: No significant suspicious finding. There are similar focal asymmetries. Bilaterally. Benign-appearing calcifications are present. LEFT BREAST: No significant suspicious finding. There is a similar focal asymmetry. DIAGNOSTIC CATEGORY 2--BENIGN FINDING. NO CHANGE FROM COMPARISON. RECOMMENDATIONS: ROUTINE MAMMOGRAM AND CLINICAL EVALUATION IN 12 MONTHS. Dictated by: Amor Gramajo MD on 11/16/2024 at 13:56 Approved by: Amor Gramajo MD on 11/16/2024 at 14:02
== END 2024-11-16 10:30 | disposition home or self-care (01) ==
LOC: MAMMO 10:32
PROVIDERS: PCP Family Medicine; Visit Provider Obstetrics & Gynecology
DX: Z12.31 Encounter for screening mammogram for malignant neoplasm of breast (principal); Z80.8 Family history of malignant neoplasm of other organs or systems
CPT/HCPCS: 77063; 77067

== ENCOUNTER 2025-01-12 08:33 | Outpatient (OUT) | payer OTHER, SELFPAY ==
--- OUTSIDE RECORDS SUMMARY | 2025-01-12 08:39 | XMS_ITS | Clinical Summary ---
Author Organization [facility] Address [address] [place] [address] Care Team Providers Care Insurance Counselor Name Role Phone Brett Paniagua MD Primary Care Provider [phone] Allergies Active AllergyReactionsCriticalityNoted DateCommentsCodeineGI intolerance 09/24/2023 Medications MedicationSigDispense QuantityRefillsLast FilledStart DateEnd DateStatus desvenlafaxine (Pristiq) 100 MG 24 hr tablet Take 100 mg by mouth DailyActive pantoprazole (ProtoNix) 40 MG EC tablet Take 40 mg by mouth in the morning and 40 mg before bedtime.Active aspirin 81 MG EC tablet Take 81 mg by mouth DailyActive Multiple Vitamins-Minerals (CENTRUM SILVER PO) Take 1 tablet by mouth DailyActive celecoxib (CeleBREX) 100 MG capsule Take 100 mg by mouth in the morning and 100 mg before bedtime.Active dilTIAZem CD (Cardizem CD) 240 MG 24 hr capsule Take 240 mg by mouth DailyActive Active Problems ProblemNoted DateDiagnosed DateAcquired equinus deformity of foot09/24/2023 Congenital deformity of toe of left foot09/24/2023ongenital deformity of toe of right foot09/24/2023Gastroesophageal reflux sudnegw8609/24/2023Obstructive sleep apnea07/03/2023 Overview (09/24/2023): CARLITO=9.5 events/hour; Leroy SpO2=84%; Cqyodc=866.0 lbs; BMI=35.7 kg/m2, Home Sleep Apnea Testing on 07/01/2023 at [facility] Encounters DateTypeDepartmentCare FlorYphjjvqmsvq48/24/2025Clinisync Result Encounter [facility] Unsolicited Branden Fong MD from Last 3 Months Family History Medical HistoryRelationNameCommentsCancerFatherHeart diseaseMaternal Grandmother HypertensionMaternal GrandmotherCOPDMotherNeck cancerSisterTongue cancerSister RelationNameStatusCommentsFatherMaternal GrandmotherMotherSister Social History Tobacco UseTypesPacks/DayYears UsedDateSmoking Tobacco: FormerCigarettes Smokeless Tobacco: NeverAlcohol UseStandard Drinks/WeekCommentsYes2 (1 standard drink = 0.6 oz pure alcohol)wine or beer - a couple per monthCommentsNo Sex and Gender InformationValueDate RecordedSex Assigned at BirthNot on file Legal UyiHahydd80/15/2023 8:05 PM EDTGender IdentityNot on fileSexual OrientationNot on file Last Filed Vital Signs Vital SignReadingTime TakenCommentsBlood Mztwrixw928/8605/05/2024 2:25 PM EDT Tqfvk1942 9:46 AM YFSAivojhkfjbh15.8 ??C (98.2 ??F)09/24/2023 9:46 AM EDTRespiratory Rate--Oxygen Saturation--Inhaled Oxygen Concentration--Iungmj23.1 kg (214 lb)05/05/2024 2:25 PM LVBMrlqii078.2 cm (5' 7 )08/20/2018 12:00 PM EDT Body Mass Index33.5206 12:00 PM EDT Plan of Treatment Not on file Procedures Procedure NamePriorityDate/TimeAssociated DiagnosisCommentsMM TOMOSYNTHESIS SCREENING BI11/16/2024 2:02 PM EDT from Last 3 Months Results * MM TOMOSYNTHESIS SCREENING BI (11/16/2024 2:02 PM EDT)Anatomical Region LateralityModalityOtherSpecimen (Source)Anatomical Location / Laterality Collection Method / VolumeCollection TimeReceived Time11/16/2024 2:02 PM EDT Narrative 11/16/2024 2:03 PM EDT [facility] ?[address] ? [place] [address] ? Mammography Report ? Signed ? Patient: STEELE,MALU L ?MR#: [id number] ?? : 1965 ?Acct:[id number] ?? Age/Sex: 59 / F ?ADM Date: 09/24/25 ?? Loc: MAMMO ? Attending Dr: BRANDEN FONG ? Ordering Physician: BRANDEN FONG ? Results: ? Date of Service: 11/16/24 ?Follow Up: ? Procedure(s): MM tomosynthesis screening BI ?? Accession Number(s): [id number] ? cc: Brett Paniagua M.D.; BRANDEN FONG ? Patient Name: ? MALU CEDRIC ? MR#: [id number] ? : 1965 ? Exam Date: 11/16/2024 ?? Ordering Doctor: DR BRANDEN FONG ? RADIOLOGY REPORT ? PROCEDURE: ? MM TOMOSYNTHESIS SCREENING BI ? COMPARISON: ? MM TOMOSYNTHESIS SCREENING BI, 09/18/2023. ??MG MAMM SCREEN 3D ?? WILMA CAD, 05/11/2020. ? INDICATIONS: ? Screening ? Calculator Name ? NCI Breast Cancer Risk Assessment Tool ?? 5 Year Breast Cancer Risk ? 1.10% ?? Lifetime Breast Cancer Risk ? 6.30% ?? Personal Breast Cancer ?No ?? Personal Ovarian Cancer ? No ?? Treatments ? None ?? Family Cancers ? Sister with tongue cancer at age 37. ? LOCATION: ? [facility] ? BREAST COMPOSITION: ? There are scattered areas of fibroglandular density. ? FINDINGS: ? RIGHT BREAST: ??No significant suspicious finding. ??There are similar focal ?? asymmetries. ??Bilaterally. ??Benign-appearing calcifications are present. ? LEFT BREAST: ??No significant suspicious finding. ??There is a similar focal ?? asymmetry. ? DIAGNOSTIC CATEGORY 2--BENIGN FINDING. NO CHANGE FROM COMPARISON. ? RECOMMENDATIONS: ? ROUTINE MAMMOGRAM AND CLINICAL EVALUATION IN 12 MONTHS. ? Dictated by: Amor Gramajo MD on 11/16/2024 at 13:56 ? Approved by: Amor Gramajo MD on 11/16/2024 at 14:02 ? Dictated By: ?Amor Gramajo M.D. ? Signed By: ?11/16/24 1403 ? DD/ 1402 ? TD/TT: ? Warehouse Operations Manager: Procedure Note Radiology, Radiologist, MD - 11/16/[address] [place] [address] Mammography Report Signed Patient: MALU STEELE LMR#: [id number] : 1965Acct:[id number] Age/Sex: 59 / FADM Date: 11/16/24 Loc: MAMMO Attending Dr: BRANDEN FONG Ordering Physician: BRANDEN FONGResults: Date of Service: 11/16/24Follow Up: Procedure(s): MM tomosynthesis screening BI Accession Number(s): [id number] cc: Brett Paniagua M.D.; BRANDEN FONG Patient Name: MALU STEELE MR#: [id number] : 1965 Exam Date: 11/16/2024 Ordering Doctor: DR BRANDEN FONG RADIOLOGY REPORT PROCEDURE: MM TOMOSYNTHESIS SCREENING BI COMPARISON: MM TOMOSYNTHESIS SCREENING BI, 09/18/2023. MG MAMM SAKWQV6B WILMA CAD, 05/11/2020. INDICATIONS: Screening Calculator Name [facility] Breast Cancer Risk Assessment Tool 5 Year Breast Cancer Risk 1.10% Lifetime Breast Cancer Risk 6.30% Personal Breast Cancer No Personal Ovarian Cancer No Treatments None Family Cancers Sister with tongue cancer at age 37. LOCATION: [facility] BREAST COMPOSITION: There are scattered areas of fibroglandulardensity. FINDINGS: RIGHT BREAST: No significant suspicious finding. There are similar focal asymmetries. Bilaterally. Benign-appearing calcifications are present. LEFT BREAST: No significant suspicious finding. There is a similar focal asymmetry. DIAGNOSTIC CATEGORY 2--BENIGN FINDING. NO CHANGE FROM COMPARISON. RECOMMENDATIONS: ROUTINE MAMMOGRAM AND CLINICAL EVALUATION IN 12 MONTHS. Dictated by: Amor Gramajo MD on 11/16/2024 at 13:56 Approved by: Amor Gramajo MD on 11/16/2024 at 14:02 Dictated By: Amor Gramajo M.D. Signed By:11/16/24 140 DD/ 01 TD/TT: Warehouse Operations Manager: Authorizing ProviderResult TypeResult StatusBrian J Printy MDCLINISYNC IMAGING Final Result from Last 3 Months Insurance Care Teams Team MemberRelationshipSpecialtyStart DateEnd Brett Paniagua MD PCP - GeneralFamily [facility]09/24/23
--- OUTSIDE RECORDS SUMMARY | 2025-01-12 08:39 | XMS_ITS | Clinical Summary ---
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 Role Phone Unavailable Primary Care Provider Unavailabl e Allergies Active AllergyReactionsCriticalityNoted DateCommentsCodeineGI Upset,Other: See Lazbbbra05/10/2019MeperidineUnknown,Peabbbjh82/30/2021 Medications MedicationSigDispense QuantityRefillsLast FilledStart DateEnd DateStatus aspirin, enteric coated (ASPIRIN, ENTERIC COATED) 81 mg EC tablet Take 81 mg by mouth.Active acetaminophen 325 mg-caffeine 40 mg-butalbital 50 mg (FIORICET) per tablet Take 1 tablet by mouth.04/06/2017Active desvenlafaxine ER (PRISTIQ) 100 mg 24 hr tablet Take 100 mg by mouth once daily.Active dicyclomine (BENTYL) 20 mg tablet as directed.06/22/2020ctive dilTIAZem CD (CARDIZEM CD, CARTIA XT) 180 mg 24 hr capsule Take 180 mg by mouth every morning.Active fluticasone (FLONASE) 50 mcg/actuation nasal spray once daily.11/02/2018Active loratadine (CLARITIN) 10 mg tablet once daily.11/02/2018Active pantoprazole DR (PROTONIX) 40 mg tablet Take 1 tablet by mouth every 12 hours.11/11/2023ctive celecoxib (CELEBREX) 100 mg capsule TAKE 1 CAPSULE BY MOUTH TWICE A DAY 60 capsule 5Active estradiol (VIVELLE-DOT) 0.0375 mg/24 hr patch Apply 1 Patch as directed two times a week. 30 Patch 5Active Active Problems ProblemNoted DateDiagnosed DateCrohn's disease Social History Tobacco UseTypesPacks/DayYears UsedDateSmoking Tobacco: NeverSmokeless Tobacco: Never Tobacco Cessation:Counseling Given: Not Answered Alcohol UseStandard Drinks/WeekCommentsYes0 (1 standard drink = 0.6 oz pure alcohol)occPHQ-2AnswerDate RecordedPHQ-2 rtvhi422/24/2024Area Deprivation Index AnswerDate RecordedNational Score (1-100), lower number is lower risk80 01/18/2024State Score (1-10), lower number is lower wddb4224Data from: https://www.neighborhoodatlas.medicine.[facility].edu/. Last address used for [address] [facility]4CommentsNoSex and Gender Information ValueDate RecordedSex Assigned at BirthNot on fileLegal XgeBxjzlb21/29/2023 11:23 AM EDTGender IdentityNot on fileSexual OrientationNot on file Last Filed Vital Signs Vital SignReadingTime TakenCommentsBlood Qodqqbag292/5040501/18/2024 9:19 AM EST Vicat510801/18/2024 9:19 AM HSNGsfowokvzjx67.2 ??C (97.2 ??F)01/18/2024 9:19 AM ESTRespiratory Rate--Oxygen Saturation--Inhaled Oxygen Concentration--Weight 109.2 kg (240 lb 11.9 oz)01/18/2024 9:19 AM ZOAQxakyo675.9 cm (5' 6.5 ) 01/18/2024 9:19 AM ESTBody Mass Index38.27103/19/2023 9:19 AM EST Plan of Treatment Health MaintenanceDue DateLast DoneCommentsAnxiety Jdbszvyfy17/24/1984Depression Suugrskkn35/24/1984HIV Idhzfgrfu24/24/1984DTaP,Tdap,Td Vaccine (1 - Tdap) 1985Mammogram Bwallgntz74/24/2006CT Gnhzhqzaxxtt84/24/2011Cologuard (FIT-DNA)01/16/20119547Zrvjbzjyflz96/24/2011Colorectal Cancer Frwprwane28/24/2011 Fecal Occult Blood2011Lipid Xysjcjxby96/24/8914Wddwyieoqnuem15/24/2011 Pneumococcal Vaccine: 50+ (1 of 1 - PCV)01/17/2016Shingrix Vaccine (1 of 2) 01/17/2016Cervical Cancer Jxkvcmafv14/Covid-19 Vaccine (3 - season)502/11/2020, 03/07/2020Influenza Vaccine (#1)2024 12/07/2015Diabetes Itkijaenb47Hepatitis C ScreeningCompleted 01/18/2024 Procedures Procedure NamePriorityDate/TimeAssociated DiagnosisCommentsHEPATITIS C ANTIBODY IA WITH QWGBHLTWCRZFXoncmss68/25/2024 11:32 AM EST Encounter for long-term (current) use of medications COMPREHENSIVE METABOLIC KXIBSIfayppn04/25/2024 11:32 AM EST Arthritis Encounter for long-term (current) use of medications from Last 3 Months or Most Recently Relevant to Health Maintenance Results * (ABNORMAL) COMPREHENSIVE METABOLIC PANEL (01/18/2024 11:32 AM EST)Component ValueRef RangeTest MethodAnalysis TimePerformed AtPathologist Signature Protein, Total7.36.3 - 8.0 g/dL01/18/2024 8:14 PM [facility] LABAlbumin4.43.9 - 4.9 g/dL01/18/2024 8:14 PM [facility] LABCalcium, Total9.28.5 - 10.2 mg/dL01/18/2024 8:14 PM [facility] LABBilirubin, Total0.40.2 - 1.3 mg/dL01/18/2024 8:[address] [facility] LABAlkaline Dmazxmzipby657(H)34 - 123 U/L 01/18/2024 8:14 PM [facility] CCXXWV1958 - 35 U/L 01/18/2024 8:14 PM [facility] XDVUJN488 - 38 U/L 01/18/2024 8:14 PM [facility] NWAKjrwbqk7047 - 99 mg/dL 01/18/2024 8:14 PM [facility] LABComment: The [place] [employer] (ADA) provides guidance for cutoff values for fasting glucose andrandom glucose. The ADA defines fasting as no [...] Standards of Medical Care in Diabetes 2016, [place] [employer]. Diabetes Care. 2016.39(Suppl 1). AGH390 - 21 mg/dL01/18/2024 8:14 PM [facility] Creatinine0.590.58 - 0.96 mg/dL01/18/2024 8:14 PM [facility] WEUZyxrbf642408 - 144 mmol/L103/19/2023 8:14 PM [facility] LABPotassium3.73.7 - 5.1 mmol/L103/19/2023 8:14 PM [facility] XESQrajozoh67286 - 107 mmol/L103/19/2023 8:14 PM [facility] KFPXW02362 - 30 mmol/L103/19/2023 8:14 PM [facility] LABAnion Dqm736 - 15 mmol/L103/19/2023 8:14 PM [facility] LABEstimated Glomerular Filtration Dwfi688>=60 mL/min/1.73m 01/18/2024 8:14 PM [facility] LABComment:Estimated Glomerular Filtration Rate (eGFR) is calculated using the 2020 CKD-EPI creatinine equation. This equation utilizes serum creatinine, sex, and age as parameters. The creatinine assay has traceable calibration to isotope dilution- mass spectrometry. Refer to KDIGO guidelines for clinical interpretation. In patients with unstable renal function, e.g. those with acute kidney injury, the eGFRmay not accurately reflect actual GFR.Specimen (Source)Anatomical Location / LateralityCollection Method / VolumeCollection TimeReceived TimeBloodBLOOD SPECIMEN / UnknownVenipuncture / Rirwyda0801/18/2024 11:32 AM EST01/18/2024 11:33 AM EST Narrative Authorizing ProviderResult TypeResult StatusRenny Baron MDLABORATORYFinal Result Performing OrganizationAddressCity/State/ZIP CodePhone Number [facility] [address] * HEPATITIS C ANTIBODY IA WITH CONFIRMATION (01/18/2024 11:32 AM EST)Component ValueRef RangeTest MethodAnalysis TimePerformed AtPathologist SignatureHep C Antibody MYYoyrdbdsAavrinok58/25/2024 6:12 PM ESTKETTERING HEALTH [facility] LABComment:The result suggests no evidence of active infection with Hepatitis C virus. Should recent infectionbe suspected, repeat testing may be considered 4-6 weeks after this draw.Specimen (Source)Anatomical Location / Laterality Collection Method / VolumeCollection TimeReceived TimeBloodBLOOD SPECIMEN / UnknownVenipuncture / Uazvqpk0701/18/2024 11:32 AM EST01/18/2024 11:33 AM EST Narrative Authorizing ProviderResult TypeResult StatusRenny Baron MDLABORATORYFinal Result Performing OrganizationAddressCity/State/ZIP CodePhone Number [facility] [address] [place] [address] from Last 3 Months or Most Recently Relevant to Health Maintenance Insurance
--- OUTSIDE RECORDS SUMMARY | 2025-01-12 08:40 | XMS_ITS | CCD ---
Author Organization [facility] CliniSywa Care Team Providers Care [employer] W[employer] Name Role Phone ANTHONYMamtaADA Referring Unavailable KAYY MADRID Primary Care Unavailable Nader Madrid Primary Care Provider [phone] René Ly Attending Provider [phone] René Ly Unavailable [facility] DR [place] [...] EVANGELISTA Attending Unavailable SELF Referring Unavailable RENNY JEFFERS Attending Unavailable RENNY JEFFERS Referring Unavailable Kayy Madrid Primary Care Physician [phone] Kayy Madrid Referring Unavailable Zacarias COBIAN Attending Unavailable Kayy Madrid MD Primary Care Provider WOLF FONG Attending Unavailable LESTER HARRELL Attending Unavailable SUSANNE PAZ Attending Unavailable KIM FATIMA Attending Unavailable LOU MCCLAIN Referring Unavailable Kayy Madrid MD Primary Care Provider Philippe Wise MD Attending Provider Philippe Wise Attending Unavailable Philippe Wise Admitting Unavailable Kayy Madrid Primary Care Unavailable Kayy Madrid MD Primary Care Provider [phone] Stanton DO Attending Provider [phone] Kayy Madrid MD Primary Care Provider [phone] Allergies Allergy ClassificationReported Allergen(s)Allergy TypeDate of OnsetReaction(s) Facility (20 sources)Codeine; Translations: [CODEINE]Drug Qlezkbu24-57-8657HN Upset, Other: See Comments, [facility] (18 sources)Meperidine; Translations: [MEPERIDINE]Drug Cuzynhi52-30-0473Wtvrnqc, Vomiting, Vomiting (disorder)[employer] Other (1 source)CodeineDrug [facility]ergyMer[facility] Rep[facility] (2 sources)Meperidine; Translations: [Demerol]Drug AllergyMercy Health Repository (1 source)CodeineDrug Notxbwh12-96-5644MzjqlihsfTrinity [facility] Rep[facility] (1 source)MeperidineDrug Jgwsunj03-36-0142XoaejpxmcTrinity Health System [facility] Campus Repository Medications Current Medications MedicationDrug Class(es)DatesSig (Normalized)Sig (Original)Acetaminophen (2 sources)Tylenol PRN ActiveTylenol Activeacetaminophen 325 mg / butalbital 50 mg / caffeine 40 mg oral tablet (9 sources)Barbiturate, Central Nervous System Stimulant, MethylxanthineStart: 91-84-1250erqa 1 tablet by mouth onceacetaminophen 325 mg-caffeine 40 mg- butalbital 50 mg (FIORICET) per tablet Take 1 tablet by mouth. 04/06/2017 Active aspirin 81 mg delayed release oral tablet (20 sources)Platelet Aggregation Inhibitor, Nonsteroidal Anti-inflammatory Drug Start: 64-36-8721gsnx 1 tablet by mouth once dailyAspirin (Adult Aspirin Regimen) 81 mg tablet,delayed release (DR/EC) Active 81 MG PO Daily July 19, 2024 12:00am Complies with drug therapyStart: 67-02-0778pnxu 1 tablet by mouth once dailyaspirin 81 mg Oral EC Tab 81 mg = 1 tab(s), Oral, Daily, Refills(s) 0 Start Date: 03/14/24 Status: Orderedcelecoxib 100 mg oral capsule (15 sources)Nonsteroidal Anti-inflammatory DrugStart: 92-76-0522xyvb 1 capsule by mouth once dailyCelecoxib 100 mg capsule Active 100 MG PO Daily July 19, 2024 12:00am Complies with drug therapyStart: 93-51-6787tmtr 1 capsule by mouth twice dailyCeleBREX 100 mg Cap 100 mg = 1 cap(s), Oral, BID, Refills(s) 0 Start Date: 03/14/24 Status: OrderedStart: 01-18-2024 End: 00-55-8524dhre 1 capsule by mouth twice dailycelecoxib (CELEBREX) 100 mg capsule TAKE 1 CAPSULE BY MOUTH TWICE A DAY 60 capsule 1 02/29/2024 Active ciprofloxacin 500 mg oral tablet (1 source)Quinolone AntimicrobialStart: 66-98-4343xmyc 1 tablet by mouth every twelve hoursCipro 500 MG 1 tablet Orally every 12 hrs for 7 days Aug, Tkcvvc95 hr desvenlafaxine succinate 100 mg extended release oral tablet (20 sources)Serotonin and Norepinephrine Reuptake InhibitorStart: 76-22-4287johq 1 tablet by mouth once dailydesvenlafaxine 100 mg Tab- 100 mg = 1 tab(s), Oral, Daily, Refills(s) 0 Start Date: 03/14/24 Status:OrderedStart: 27-36-2257obcf 1 tablet by mouth once daily, then take 1 tablet by mouth every twenty-four hours Desvenlafaxine Succinate (Pristiq) 25 mg Tablet Extended Release 24 Hr Active 25 MG PO Daily November 02, 2018 12:00am Complies with drug therapy Desvenlafaxine Succinate ER Activedicyclomine hydrochloride 20 mg oral tablet (16 sources)AnticholinergicStart: 79-05-3788Paopwioyyqj 20 mg tablet Active 20 MG PO As Directed June 22, 2020 12:00am Complies with drug therapytake 1 tablet by mouth twice dailyDicyclomine HCl 20 MG TAKE 1 TABLET BY MOUTH TWICE A DAY Ixqpgh92 hr dilTIAZem hydrochloride 240 mg extended release oral capsule (20 sources)Calcium Channel BlockerStart: 34-09-2586lhim 1 capsule by mouth every twenty-four hoursDiltiazem Hcl 240 mg capsule,extended release 24hr Active MG PO July 19, 2024 12:00am Complies with drug therapyStart: 82-17-0864snat 1 capsule by mouth every twenty-four hoursDiltiazem Hcl 240 mg capsule,extended release 24hr Active MG PO July 19, 2024 12:00amStart: 33-69-0376pknu 1 tablet by mouth once dailydiltiazem 240 mg/24 hours oral tablet, extended release 240 mg = 1 tab(s), Oral, Daily, Refills(s) 0 Start Date: 03/14/24 Status: Orderedtake 1 capsule by mouth once daily, then take 1 capsule by mouth every twenty-four hoursdilTIAZem CD (Cardizem CD) 240 MG 24 hr capsule Take 240 mg by mouth Daily Active End: 37-99-9772wcph 1 capsule by mouth once daily, then take 1 capsule by mouth every twenty-four hoursdilTIAZem CD (Cardizem CD) 180 MG 24 hr capsule Take 180 mg by mouth Daily 05/05/2024 Discontinued (Ineffective)doxepin hydrochloride 10 mg oral capsule (1 source)Tricyclic AntidepressantStart: 38-57-0334lfyy 1-2 capsules by mouth once at bedtimeDoxepin 10 mg capsule Active 10 MG PO .COMPLEX 60 October 26, 2024 12:00am 10 mg orally 1-2 po qhs; Complies with drug hr estradiol 0.38274 mg/hr transdermal system (10 sources)EstrogenStart: 11-23-2023 End: 21-01-6056sozstmkrv (VIVELLE-DOT) 0.0375 mg/24 hr patch Apply 1 Patch as directed two times a week. 30 Patch 1 03/01/2024 08/28/2024 ActiveEstradiol Patch 0.0375 mg/24 hours twice weekly transdermal film, extended release (2 sources)Start: 47-14-6600Aoryrrbex Patch 0.0375 mg/24 hours twice weekly transdermal film, extended release 1 patch(es), TransDermal, MonThu, Refill(s) 0 Start Date: 03/14/24 Status: OrderedExcedrin Extra Strength (2 sources)Excedrin Extra Strength PRN ActiveExcedrin Extra Strength Active fluticasone propionate 0.05 mg/actuat metered dose nasal spray (13 sources)CorticosteroidStart: 96-71-9848ocgqycusukb (FLONASE) 50 mcg/actuation nasal spray once daily. 11/02/2018 ActiveStart: 11-02-2018 End: 50-82-5869Kypmqzmqcof Propionate (Flonase Allergy Relief) 50 mcg/actuation Munden,Suspension Discontinued 1 SPRAY INTRANASAL Daily November 02, 2018 12:00am July 19, 2024 10:13amlisinopril 10 mg oral tablet (3 sources)Angiotensin Converting Enzyme InhibitorStart: 67-17-6538lrrt 1 tablet by mouth once dailyLisinopril 10 mg tablet Active 10 MG PO Daily July 19, 2024 12:00am Complies with drug qpvybdb04 hr mesalamine 375 mg extended release oral capsule (4 sources)AminosalicylateStart: 11-03-2018 End: 60-97-8474eprh 1 capsule by mouth once dailyMesalamine (Apriso) 0.375 gram capsule,extended release 24hr Active 1.5 GM PO Daily 120 November 03, 2018 9:14amStart: 11-03-2018 End: 84-28-5744qbom 1 capsule by mouth once dailyMesalamine (Apriso) 0.375 gram capsule,extended release 24hr Discontinued 1.5 GM PO Daily 120 November 03, 2018 12:00am June 22, 2020 11:45amMulti Vitamins oral tablet (2 sources)Start: 78-75-2015glho 1 tablet by mouth once dailyMulti Vitamins oral tablet 1 tab(s), Oral, Daily, Refill(s) 0 Start Date: 03/14/24 Status: Ordered Multiple Vitamins-Minerals (CENTRUM SILVER PO) (6 sources)take 1 tablet by mouth once dailyMultiple Vitamins-Minerals (CENTRUM SILVER PO) Take 1 tablet by mouth Daily Activepantoprazole 40 mg delayed release oral tablet (20 sources)Proton Pump InhibitorStart: 06-33-1631vgbe 1 tablet by mouth every twelve hourspant[address] (PROTONIX) 40 mg tablet Take 1 tablet by mouth every 12 hours. 11/11/2023 ActiveStart: 09-29-5414jwrh 1 tablet by mouth once daily Pantoprazole 40 mg tablet,delayed release (DR/EC) Active 40 MG PO Daily June 22, 2020 12:00am Complies with drug therapyStart: 73-21-8417crgc 1 tablet by mouth twice dailyPantoprazole [address] Tab 40 mg = 1 tab(s), Oral, BID, Refills(s) 0 Start Date: 03/14/24 Status: OrderedpredniSONE (1 source)predniSONE Active Completed/Discontinued Medications MedicationDrug Class(es)DatesSig (Normalized)Sig (Original)calcium carbonate 1500 mg oral tablet (3 sources)Start: 06-22-2020 End: 78-26-6601Zikgaqy Carbonate 600 mg calcium (1,500 mg) tablet Discontinued 600 MG PO As Directed June 22, 2020 12:00am July 19, 2024 10:13am cholecalciferol 0.05 mg oral tablet (3 sources)Vitamin DStart: 06-22-2020 End: 34-35-2400Szudayunbujkkkh (Vitamin D3) 50 mcg (2,000 unit) tablet Discontinued 50 MCG PO As Directed June 22, 2020 12:00am July 19, 2024 10:13amloratadine 10 mg oral tablet (15 sources)Start: 11-02-2018 End: 95-77-2147vbxx 1 tablet by mouth once dailyLoratadine (Claritin) 10 mg Tablet Discontinued 10 MG PO Daily November 02, 2018 12:00am October 26, 2024 3:28pmClaritin ActivemethylPREDNISolone (5 sources)CorticosteroidStart: 09-24-2023 End: 24-04-0569vjzdzrAAGTUWBzuked (Medrol Dospak) 4 MG tablets Indications: Bilateral plantar fasciitis Follow schedule on package instructions 1 each 09/24/2023 05/05/2024 Discontinued (Ineffective)Start: 09-24-2023 methylPREDNISolone (Medrol Dospak) 4 MG tablets Indications: Bilateral plantar fasciitis Follow schedule on package instructions 1 each 09/24/2023 Active sucralfate 100 mg/ml oral suspension (2 sources)Aluminum Complextake 10 mL by mouth four times dailyCarafate 1 GM/10ML 10 ml on an empty stomach Orally qid Not-Takingtopiramate 100 mg oral tablet (5 sources)Start: 11-02-2018 End: 47-05-9364welq 1 tablet by mouth once dailyTopiramate 100 mg tablet Discontinued 1 TAB PO Daily November 02, 2018 12:00am July 19, 2024 10:14am Topiramate Active Problems Active Problems Problem ClassificationProblemDateDocumented DateEpisodic/ChronicAbdominal pain (7 sources)Abdominal pain; Translations: [Unspecified abdominal pain]Onset: 16-07-5741CclbhjbuRlfrpmi disorders (2 sources)Gzecitf44-41-3197JpbjupuRkljbtf dysrhythmias (3 sources)Paroxysmal atrial fibrillation; Translations: [Paroxysmal atrial fibrillation]Onset: 782897-95-7203XzahbvuMnsrqfedvc and other anemia (1 source)Anemia, unspecified; Translations: [ANEMIA UNSPECIFIED]Onset: 23-92-4350NzqpmevuVbtexbee mellitus without complication (1 source)Other abnormal glucose; Translations: [OTHER ABNORMAL GLUCOSE]Onset: 75-18-2138ZrwkaewoBfbynoion of lipid metabolism (2 sources)Mixed hyperlipidemia; Translations: [Mixed hyperlipidemia]Onset: 65-68-0474HgwrpubZjmclrsmre disorders (20 sources)Gastroesophageal reflux disease; Translations: [Gastro-esophageal reflux disease without esophagitis]Onset: 55-45-6996PsokwleSwwdpro on above: Problem List clean-up per request of Phys. EHR CmteEssential hypertension (6 sources)Essential (primary) hypertension; Translations: [Essential hypertension]Onset: 36-56-8980KsuhesoKqjzcgxbb and duodenitis (2 sources)Atrophic gastritis; Translations: [Unspecified chronic gastritis without bleeding]ChronicGastrointestinal hemorrhage (2 sources)Rectal hemorrhage; Translations: [Hemorrhage of anus and rectum] EpisodicGenitourinary symptoms and ill-defined conditions (1 source)Unspecified urinary incontinence; Translations: [Unspecified urinary incontinence]Onset: 54-81-9106XgvzenfHvjqeoli; including migraine (3 sources)Migraine with aura; Translations: [Migraine with aura, not intractable, with status migrainosus]22-64-4023JplsxyiEhcpitlirug (2 sources)Hemorrhoids; Translations: [Unspecified hemorrhoids]Episodic Hypertension with complications and secondary hypertension (2 sources)Hypertensive heart disease without heart failure; Translations: [Hypertensive heart disease withoutheart failure]Onset: 16-99-9256Netqger Immunizations and screening for infectious disease (3 sources)Anti-nuclear factor positive; Translations: [Other specified abnormal immunological findings in serum]87-31-0074ZkhnxnbnLnvywnplsc disorders (3 sources)Menopausal symptom; Translations: [Menopausal and female climacteric states]Onset: 130065-04-1211BinqdncFwaafflporacx gastroenteritis (2 sources)Ileitis; Translations: [Noninfective gastroenteritis and colitis, unspecified]EpisodicNutritional deficiencies (1 source)Vitamin D deficiency, unspecified; Translations: [VITAMIN D DEFICIENCY UNSPECIFIED]Onset: 69-22-6027DnzfwdaCqemjrtieuvihx (3 sources)Arthritis; Translations: [Unspecified osteoarthritis, unspecified site]Onset: 980541-07-2045JibovskGwxet aftercare (2 sources)Long-term current use of drug therapy; 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]96-10-9860YdtqavmfFcpsh aftercare (1 source)Other alf (current) drug therapy; Translations: [Encounter for long-term (current) use of medications]Onset: 16-58-5534SaecqorsEjbsr bone disease and musculoskeletal deformities (2 sources)Zvklcsdpnc17-05-2679RbvfrtyeEyxao congenital anomalies (6 sources)Congenital deformity of left toe; Translations: [Congenital deformity of feet, unspecified, left foot]Onset: 310459-80-3382ClixkylPbhfl congenital anomalies (6 sources)Congenital deformity of right toe; Translations: [Congenital deformity of feet, unspecified, right foot]Onset: hronic Other connective tissue disease (2 sources)Enthesitis; Translations: [Enthesopathy, unspecified]01-18-2024 EpisodicOther connective tissue disease (2 sources)Pain in right foot; Translations: [Pain in right foot]09-24-2023 EpisodicOther connective tissue disease (2 sources)Pain in right heel; Translations: [Pain in right foot]09-24-2023 EpisodicOther connective tissue disease (2 sources)Pain in left foot; Translations: [Pain in left foot]09-24-2023 EpisodicOther connective tissue disease (2 sources)Pain of left heel; Translations: [Pain in left foot]09-24-2023 EpisodicOther connective tissue disease (2 sources)Bilateral plantar fasciitis; Translations: [Plantar fascial fibromatosis]91-19-2522LwtiitocJcjja gastrointestinal disorders (1 source)Irritable bowel syndrome with diarrhea; Translations: [Irritable bowel syndrome with diarrhea]ChronicOther gastrointestinal disorders (1 source)Irritable bowel syndrome with diarrheaChronicOther gastrointestinal disorders (2 sources)Irritable bowel syndrome; Translations: [Irritable bowel syndrome without diarrhea]89-46-6240YsfzuxtWadyw gastrointestinal disorders (1 source)Irritable bowel syndrome without diarrhea; Translations: [Irritable bowel syndrome]47-72-3244OipxzxbKfffa gastrointestinal disorders (2 sources)Abnormal feces; Translations: [Other fecal abnormalities]Episodic Other gastrointestinal disorders (2 sources)Diarrhea; Translations: [Diarrhea, unspecified]EpisodicOther nervous system disorders (1 source)Carpal tunnel syndrome of left wrist; Translations: [Carpal tunnel syndrome, left upper limb]35-07-1031OchuvkaXhxex non-traumatic joint disorders (2 sources)Joint pain; Translations: [Pain in unspecified joint]01-18-2024 EpisodicOther nutritional; endocrine; and metabolic disorders (1 source)Overweight; Translations: [Overweight]Onset: 90-14-5607WtutehpFfazj nutritional; endocrine; and metabolic disorders (2 sources)Obesity caused by energy -58-4306XgbhjmwBjaxp screening for suspected conditions (not mental disorders or infectious disease) (2 sources)Cancer cervix screening status; Translations: [Encounter for screening for malignant neoplasm of cervix]46-99-5024YktkacgwGnzro upper respiratory disease (2 sources)Seasonal allergic ocjmmzog05-23-4798TgnwqxtMzxylich enteritis and ulcerative colitis (20 sources)Crohn's disease of terminal ileum; Translations: [Crohn's disease of small intestine without complications]Onset: 08-29-2021 Resolved: 51-96-7186GzsscsxFffnkmd on above:Problem List clean-up per request of Phys. EHR CmteResidual codes; unclassified (6 sources)Obstructive sleep apnea syndrome; Translations: [Obstructive sleep apnea (adult) (pediatric)]Onset: 461413-35-4889SeaxkisDmsxopfaecu; intervertebral disc disorders; other back problems (2 sources)Degeneration of cervical intervertebral drxc52-93-1558Phlxhda Past or Other Problems Problem ClassificationProblemDateDocumented DateEpisodic/ChronicAcquired foot deformities (6 sources)Acquired equinus deformity of foot; Translations: [Other acquired deformities of unspecified foot]Onset: 514701-45-8575DsziyerlEhvcgvryoz infection (1 source)Viral intestinal infection, unspecifiedOnset: 08-29-2021 Resolved: 94-92-9689CvrisitqMkycs lower respiratory disease (2 sources)Snoring; Translations: [Snoring]Onset: 21-45-4354RigigrhrTprtj nutritional; endocrine; and metabolic disorders (1 source)Abnormal weight loss; Translations: [ABNORMAL WEIGHT LOSS]Onset: 29-37-5631Mkxeljee Results Test NameValueInterpretationReference RangeFacilityMM TOMOSYNTHESIS SCREENING BI on 39[place]34[place] [address] Mammography Report Signed Patient: ESSIE ERICKSON MR#: [id number] : 1965 Acct:[id number] Age/Sex: 59 / F ADM Date: 11/16/24 Loc: MAMMO Attending Dr: WOLF FONG Ordering Physician: WOLF FONG Results: Date of Service: 11/16/24 Follow Up: Procedure(s): MM tomosynthesis screening BI Accession Number(s): [id number] cc: Kayy Madrid M.D.; WOLF FONG Patient Name: ESSIE ERICKSON MR#: [id number] : 1965 Exam Date: 11/16/2024 Ordering Doctor: DR WOLF FONG RADIOLOGY REPORT PROCEDURE: MM TOMOSYNTHESIS SCREENING BI COMPARISON: MM TOMOSYNTHESIS SCREENING BI, 09/18/2023. MG MAMM SCREEN 3D WILMA CAD, 05/11/2020. INDICATIONS: Screening Calculator Name NCI Breast Cancer Risk Assessment Tool 5 Year Breast Cancer Risk 1.10% Lifetime Breast Cancer Risk 6.30% Personal Breast Cancer No Personal Ovarian Cancer No Treatments None Family Cancers Sister with tongue cancer at age 37. LOCATION: [facility] BREAST COMPOSITION: There are scattered areas of fibroglandular density. FINDINGS: RIGHT BREAST: No significant suspicious finding. There are similar focal asymmetries. Bilaterally. Benign-appearing calcifications are present. LEFT BREAST: No significant suspicious finding. There is a similar focal asymmetry. DIAGNOSTIC CATEGORY 2--BENIGN FINDING. NO CHANGE FROM COMPARISON. RECOMMENDATIONS: ROUTINE MAMMOGRAM AND CLINICAL EVALUATION IN 12 MONTHS. Dictated by: Amor Gramajo MD on 11/16/2024 at 13:56 Approved by: Aomr Gramajo MD on 11/16/2024 at 14:02 Dictated By: Amor Gramajo M.D. Signed By: 11/16/24 1403 DD/ 1402 TD/TT: Travel Rn:TBHRadiology, Radiologist, MD - 11/16/2024 [place] [address] Mammography Report Signed Patient: ESSIE ERICKSON MR#: [id number] : 1965 Acct:[id number] Age/Sex: 59 / F ADM Date: 11/16/24 Loc: MAMMO Attending Dr: WOLF FONG Ordering Physician: WOLF FONG Results: Date of Service: 11/16/24 Follow Up: Procedure(s): MM tomosynthesis screening BI Accession Number(s): [id number] cc: Kayy Madrid M.D.; WOLF FONG Patient Name: ESSIE ERICKSON MR#: [id number] : 1965 Exam Date: 11/16/2024 Ordering Doctor: DR WOLF FONG RADIOLOGY REPORT PROCEDURE: MM TOMOSYNTHESIS SCREENING BI COMPARISON: MM TOMOSYNTHESIS SCREENING BI, 09/18/2023. MG MAMM SCREEN 3D WILMA CAD, 05/11/2020. INDICATIONS: Screening Calculator Name NCI Breast Cancer Risk Assessment Tool 5 Year Breast Cancer Risk 1.10% Lifetime Breast Cancer Risk 6.30% Personal Breast Cancer No Personal Ovarian Cancer No Treatments None Family Cancers Sister with tongue cancer at age 37. LOCATION: [facility] BREAST COMPOSITION: There are scattered areas of fibroglandular density. FINDINGS: RIGHT BREAST: No significant suspicious finding. [...] 14:02 Dictated By: Amor Gramajo M.D. Signed By: 11/16/24 140 DD/ 01 TD/TT: Travel Rn: PATRICIA HealthcareRadiology Study observation (narrative)[facility] HealthcareMM TOMOSYNTHESIS SCREENING BIOrdered By: Radiologist Radiology on 13-47-1494JLTBMoberly Regional Medical Center Work Phone: X-ray reportOrdered By: Alek Diaz on 67-62-6847Xoqaf reportFORT HAM[place] [address] XRay Report Signed Patient: Essie Erickson MR#: [id number] : 1965 Acct:[id number] Age/Sex: 59 / F ADM Date: 5 Loc: XD Room: Type: [facility] Attending Dr: Philippe Wise MD Copies to: [...] Diaz M.D. 07/21/2024 5:51 PM Dictation Location: [facility] Transcribed By: [facility] 07/21/241750 Dictated By: Alek Diaz MD 07/21/241749 Signed By: 07/21/241750 [facility] Work Phone: XR [facility] [phone] [facility] [place] [address] [place], [place] [id number] XRay Report Signed Patient: Essie Erickson MR#: [id number] : 1965 Acct:[id number] Age/Sex: 59 / F ADM Date: 07/21/24 Loc: XD Room: Type: [facility] Attending Dr: Philippe Wise MD Copies to: [...] Diaz M.D. 07/21/2024 5:51 PM Dictation Location: [place] [address] Transcribed By: [facility] 07/21/241750 Dictated By: Alek Diaz MD 07/21/241749 Signed By: 07/21/24 175[facility] Physician GroupOffice Visiton 85-83-6473Gnnoxb- up [id number] Essie Erickson 1965 F Date Provider Department Center 06/24/2024 [id number] FATIMA [facility] Family History Problem Relation Age of Onset COPD Mother Cancer Father Heart attack Mother's Brother Hypertension Maternal Grandmother Family Status - Relation Status Age at Mother Father Sister Alive Mother's Brother Maternal Grandmother Level of Service:71402 GA OFFICE/OUTPATIENT ESTABLISHED MOD MDM 30 MIN Reason for Visit and Comments: 6 month follow up [Other] Hypertension [492124] Atrial Fibrillation [80]NormalAultman HospitalXR Foot - left 3 Viewson [id number] HealthcareImaging Result: 09-24-2023: Left foot x-rays, weightbearing AP/MO/LAT views, obtained today shows: 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 Narrowed 2nd, 3rd intermetatarsal spaces. Lateral view shows high medial longitudinal arch with increased calcaneal inclination angle, 1st metatarsal is elevated. Os peroneum noted.No visible pathology otherwise noted in terms of heel or foot concernAtrium Health Mountain IslandRadiology Study observation (narrative)[facility] CenterXR Foot - right 3 Viewson [id number] Result: 09-24-2023: Right foot x-rays, weightbearing AP/MO/LAT views, obtained today shows: patient was congenital elongation right 2nd toe very narrowed 2nd and 3rd intermetatarsal spaces. Lateral shows good medial longitudinal arch, slightly elevated with 1st metatarsal elevation though parallel with the 2nd. Area of heel pain shows no pathology small retrocalcaneal spur noted. Os peroneum noted.[facility] IslandRadiology Study observation (narrative)[facility] Medical CenterBD DXA - AXIAL SKELETONon 78-54-0818YN DXA - AXIAL SKELETON* * *Final Report* * * DATE OF EXAM: Jan 18 2024 9:08AM [facility] [place]XA - AXIAL SKELETON / PROCEDURE REASON: Symptomatic menopausal or female climacteric states * * * * Physician Interpretation * * * * EXAMINATION: DXA BONE DENSITOMETRY BD DXA - AXIAL SKELETON PATIENT DEMOGRAPHICS: Age: 59 years, Gender: Female SCANNER INFORMATION: DXA Model: [employer] (S/N: [id number]) Date Scanned: 01/18/2024 9:08 AM CLINICAL HISTORY: [...] had a previous bone density in the [facility] or the previous bone density was performed on a different DXA machine (new, updated model or different location) within the [facility]. VERTEBRAL FRACTURE ASSESSMENT Not performed. [...] FOR MORE INFORMATION ABOUT DIAGNOSIS AND TREATMENT: [facility] for Osteoporosis and Metabolic Bone Disease:? www.ccf.org/arthritis/osteo National Osteoporosis Foundation:? www.nof.org International Society of Clinical Densitometry www.iscd.org Travel Rn: [id number] Transcribe Date/Time: Jan 18 2024 9:10A Dictated by : ALEC ARCE MD This examination was interpreted and the report reviewed and electronically signed by: ALEC ARCE MD on Jan 18 2024 9:59PM EST [id number] HospitalBLNORTHLAND MEDICAL CENTER TB SCREENon 01-18-2024M. tuberculosis tuberculin stim IFN-g Ql (Bld)NegativeNormalCBarney Children's Medical Center on above:Order Comment: Specimen Type: BLOOD SPECIMEN Ordering Facility: [facility] Address: [address] [place], [place] [address]Performed By: #### INFTBP #### [facility] CLIA [id number] [address] [place] [address] [place] [address] [place] OF AMERICAMITOGEN MINUS NIL>9.97Normal >=0.50[facility] on above:Order Comment: Specimen Type: BLOOD SPECIMEN Ordering Facility: [facility] Address: [address] [place], [place] [address]Performed By: #### INFTBP #### [facility] CLIA [id number] [address] [place] [address] [place] OF AMERICATB GAMMA INTERPRETATION Infection with M. tuberculosis complex is unlikely. If latent tuberculosis infection is highly suspected, a negative result does not rule out the infection. Specimens from immunocompromised patients and those <5 years of age may show false negative results. In case of a contact investigation, please repeat 8-12 weeks after a known exposure.[facility] on above:Order Comment: Specimen Type: BLOOD SPECIMEN Ordering Facility: [facility] Address: [address] [place], [place] [address]Performed By: #### INFTBP #### [facility] CLIA [id number] [address] [place] [address] [place] AMERICATB NIL0.03 IU/mLNormal<=8.00 [facility] on above:Order Comment: Specimen Type: BLOOD SPECIMEN Ordering Facility: [facility] Address: [address] [place], [place] [address]Performed By: #### INFTBP #### [facility] CLIA [id number] [address] [place] [address] [place] AMERICATB1 AG MINUS NIL0.05 IU/mL Normal<0.35[facility] on above:Order Comment: Specimen Type: BLOOD SPECIMEN Ordering Facility: [facility] Address: [address] [place], [place] [address]Performed By: #### INFTBP #### [facility] CLIA [id number] [address] [place] [address] [place] AMERICATB2 AG MINUS NIL0.02 IU/mL Normal<0.35[facility] on above:Order Comment: Specimen Type: BLOOD SPECIMEN Ordering Facility: [facility] Address: [address] [place], [place] [address]Performed By: #### INFTBP #### [facility] CLIA [id number] [address] [place] [address] [place] AMERICAC-REACTIVE PROTEINon 44-27-7318OEM [Mass/Vol]0.7 mg/dLNINF - 0.9 mg/dLProvidence HospitalC3 COMPLEMENTon 86-89-4464Pgrplmmkzj C3 [Mass/Vol]158 mg/dL86 - 166 mg/dLProvidence HospitalC3 SerPl-mCncon 02-44-4664Nichatpeii C3 [Mass/Vol]158 mg/oWKndffl87-788MbmqelpsrWayne HospitalComment on above:Order Comment: Specimen Type: BLOOD SPECIMEN Ordering Facility: [facility] Address: [address] [place], [place] [address]Performed By: #### 71831-4, 34011- 5, 01055-8, 25229-1, 96469-4, 26685-1, 38467-7, 66334-5 #### [facility] CLIA [id number] [address] [place] [address] STATES OF [facility]ERC4 COMPLEMENTon 01-18-2024 Complement C4 [Mass/Vol]28 mg/dL13 - 46 mg/dLProvidence HospitalC4 SerPl-mCncon 71-03-7726Uszkyxkyyk C4 [Mass/Vol]28 mg/xFJqqcsi01-47UxkdmwvzyWayne Hospital Comment on above:Order Comment: Specimen Type: BLOOD SPECIMEN Ordering Facility: [facility] Address: [address] [place], [place] [address]Performed By: #### 38408-2, 32599- 5, 64600-2, 91248-4, 29415-4, 65458-0, 79102-9, 46261-2 #### [facility] [place] [id number] [address] [place] [address] STATES OF AMERICACBC W Auto Differential panel (Bld)on 31-36-4767Vxzmskeah (Bld) [#/Vol]0.08 10*3/uLNINFProvidence Hospital Basophils/100 WBC (Bld)1.0 %Providence HospitalDifferential cell count method Nom (Bld)AutoCleveland ClinicEosinophils (Bld) [#/Vol]0.32 10*3/uLNINFProvidence HospitalEosinophils/100 WBC (Bld)4.0 %Providence HospitalErythrocyte distribution width (RBC) [Ratio]14.2 %11.5 - 15.0 %Providence HospitalHematocrit (Bld) [Volume fraction]40.8 %36.0 - 46.0 %Providence HospitalHemoglobin (Bld) [Mass/Vol]12.8 g/dL 11.5 - 15.5 g/dLProvidence HospitalImmature granulocytes (Bld) [#/Vol]0.06 10*3/uL NINFClevelProMedica Defiance Regional HospitalImmature granulocytes/100 WBC (Bld)0.8 %[facility] Interpretation and review of laboratory resultsAbnormalCUniversity Hospitals [facility] Center Lymphocytes (Bld) [#/Vol]1.99 10*3/uLProvidence HospitalLymphocytes/100 WBC (Bld) 25.1 %[facility] HospitalH (RBC) [Entitic mass]24.7 pgLow26.0 - 34.0 pgClevelNorthland Medical CenterHC (RBC) [Mass/Vol]31.4 g/dL30.5 - 36.0 g/dLParkview Health Montpelier HospitalV (RBC) [Entitic vol]78.6 fLLow80.0 - 100.0 fLClevelProMedica Defiance Regional HospitalMonocytes (Bld) [#/Vol] 0.54 10*3/uLNINFProvidence HospitalMonocytes/100 WBC (Bld)6.8 %[facility] Neutrophils (Bld) [#/Vol]4.93 10*3/uLProvidence HospitalNeutrophils/100 WBC (Bld) 62.3 %Providence HospitalNucleated RBC (Bld) [#/Vol]NINFCleveland Jackson Medical CenterNucleated RBC/100 WBC (Bld) [Ratio]0.0 %/100 WBCProvidence HospitalPlatelet mean volume (Bld) [Entitic vol]10.2 fL9.0 - 12.7 fLClevelcentral carolina hospital ClinicPlatelets (Bld) [#/Vol]292 10*3/uLDundee ClinicRBC (Bld) [#/Vol]5.19 10*6/uL3.90 - 5.20 m/WVUMedicine Harrison Community HospitalWBC (Bld) [#/Vol]7.92 10*3/[facility] Medical CenterBasophils (Bld) [#/Vol]0.08 10*3/uLNormal<0.11CBarney [facility] on above: Order Comment: Specimen Type: BLOOD SPECIMEN Ordering Facility[facility] Address: [address] [place], [place] [address]Performed By: #### 38127-9, 62883- 5, 55916-2, 38088-2, 85755-7, 46939-9, 63108-5, 52728-6 #### [facility] CLIA [id number] [address] [place] [address] [place] AMERICABasophils/100 WBC (Bld)1.0 % NormalAvita [facility] System [facility] on above:Order Comment: Specimen Type: BLOOD SPECIMEN Ordering Facility: [facility] Address: [address] [place], [place] [address]Performed By: #### 02556-7, 75733- 5, 08025-8, 38769-9, 04095-3, 67678-7, 45281-9, 23897-6 #### [facility] CLIA [id number] [address] [place] [address] [place] AMERICADifferential cell count method Nom (Bld)AutoNormalCBarney Children's Medical Center on above:Order Comment: Specimen Type: BLOOD SPECIMEN Ordering Facility: [facility] Address: [address] [place], [place] [address]Performed By: #### 74415-5, 84012- 5, 45588-1, 85841-9, 53224-0, 90344-7, 28979-8, 17433-5 #### [facility] CLIA [id number] [address] [place] [address] [place] AMERICAEosinophils (Bld) [#/Vol] 0.32 10*3/uLNormal<0.46[facility] on above:Order Comment: Specimen Type: BLOOD SPECIMEN Ordering Facility: [facility] Address: [address] [place], [place] [address]Performed By: #### 49404-8, 99402- 5, 97058-6, 39921-0, 13249-2, 26104-6, 45382-7, 95552-9 #### [facility] CLIA [id number] [address] [place] [address] [place] AMERICAEosinophils/100 WBC (Bld)4.0 %NormalAvita Health System [facility] Hospital on above:Order Comment: Specimen Type: BLOOD SPECIMEN Ordering Facility: [facility] Address: [address] [place], [place] [address]Performed By: #### 66164-1, 58534- 5, 93552-0, 16374-0, 44685-2, 97384-7, 28967-4, 16666-3 #### [facility] CLIA [id number] [address] [place] [address] [place] AMERICAErythrocyte distribution width (RBC) [Ratio]14.2 %Enuxmb21.5-15.0[facility] on above:Order Comment: Specimen Type: BLOOD SPECIMEN Ordering Facility: [facility] Address: [address] [place], [place] [address]Performed By: #### 44707-9, 90902- 5, 61328-4, 40451-2, 53747-3, 02330-0, 38552-8, 57097-4 #### [facility] CLIA [id number] [address] [place] [address] [place] AMERICAHematocrit (Bld) [Volume fraction]40.8 %Kbtgfn13.0-46.0[facility] on above:Order Comment: Specimen Type: BLOOD SPECIMEN Ordering Facility: [facility] Address: [address] [place], [place] [address]Performed By: #### 43863-4, 67857- 5, 05500-1, 31827-1, 94430-1, 87274-8, 94732-5, 66738-3 #### [facility] CLIA [id number] [address] [place] [address] [place] AMERICAHemoglobin (Bld) [Mass/Vol] 12.8 g/oLOpjfze33.5-15.5CBarney Children's Medical Center on above:Order Comment: Specimen Type: BLOOD SPECIMEN Ordering Facility: [facility] Address: [address] [place], [place] [address]Performed By: #### 91828-8, 42918- 5, 98600-8, 63468-5, 07107-2, 71567-5, 57763-6, 12972-5 #### [facility] CLIA [id number] [address] [place] [address] [place] AMERICAImmature granulocytes (Bld) [#/Vol]0.06 10*3/uLNormal<0.10[facility] on above:Order Comment: Specimen Type: BLOOD SPECIMEN Ordering Facility: [facility] Address: [address] [place], [place] [address]Performed By: #### 24610-8, 70483- 5, 64838-4, 11066-3, 39989-2, 68645-8, 67982-3, 96521-2 #### [facility] CLIA [id number] [address] [place] [address] [place] AMERICAImmature granulocytes/100 WBC (Bld)0.8 %NormalAvita Health System [facility] Hospital on above:Order Comment: Specimen Type: BLOOD SPECIMEN Ordering Facility: [facility] Address: [address] [place], [place] [address]Performed By: #### 84308-8, 23128- 5, 79050-7, 80475-4, 86320-8, 92302-7, 81843-3, 56079-1 #### [facility] CLIA [id number] [address] [place] [address] [place] OF AMERICALymphocytes (Bld) [#/Vol] 1.99 10*3/uLNormal1.00-4.00[facility] on above:Order Comment: Specimen Type: BLOOD SPECIMEN Ordering Facility: [facility] Address: [address] [place], [place] [address]Performed By: #### 10596-7, 40070- 5, 10305-2, 17082-7, 45518-2, 47339-3, 23437-5, 01016-7 #### [facility] CLIA [id number] [address] [place] [address] [place] AMERICALymphocytes/100 WBC (Bld) 25.1 %NormalAvita Health System [facility] on above:Order Comment: Specimen Type: BLOOD SPECIMEN Ordering Facility: [facility] Address: [address] [place], [place] [address]Performed By: #### 01701-9, 04127- 5, 46342-4, 75638-9, 70289-8, 69877-4, 79457-2, 40905-1 #### [facility] CLIA [id number] [address] [place] [address] (RBC) [Entitic mass]24.7 pgLow26.0-34.0[facility] on above:Order Comment: Specimen Type: BLOOD SPECIMEN Ordering Facility: [facility] Address: [address] [place], [place] [address]Performed By: #### 24121-3, 10011- 5, 08097-7, 17319-0, 80288-1, 97524-5, 66934-9, 00158-2 #### [facility] CLIA [id number] [address] [place], [place] [address] [facility] (RBC) [Mass/Vol]31.4 g/qDOujuzb29.5-36.0[facility] on above:Order Comment: Specimen Type: BLOOD SPECIMEN Ordering Facility: [facility] Address: [address] [place], [place] [address]Performed By: #### 44025-9, 25241- 5, 64739-5, 28989-9, 62094-8, 41942-1, 22200-2, 38771-9 #### [facility] CLIA [id number] [address] [place] [address] [place] AMERICAMCV (RBC) [Entitic vol]78.6 fLLow80.0-100.0[facility] on above:Order Comment: Specimen Type: BLOOD SPECIMEN Ordering Facility: [facility] Address: [address] [place], [place] [address]Performed By: #### 05945-1, 12748- 5, 22397-2, 71117-4, 82788-3, 67237-9, 49666-0, 15573-9 #### [facility] CLIA [id number] [address] [place], [place] [address] [place] AMERICAMonocytes (Bld) [#/Vol]0.54 10*3/uLNormal<0.87[facility] on above:Order Comment: Specimen Type: BLOOD SPECIMEN Ordering Facility: [facility] Address: [address] [place], [place] [address]Performed By: #### 07380-1, 25683- 5, 71469-7, 23371-0, 35110-8, 06454-4, 26052-9, 41089-7 #### [facility] CLIA [id number] [address] [place], [place] [address] [place] AMERICAMonocytes/100 WBC (Bld)6.8 % NormalAvita Health System [facility] on above:Order Comment: Specimen Type: BLOOD SPECIMEN Ordering Facility: [facility] Address: [address] [place], [place] [address]Performed By: #### 79957-4, 58370- 5, 24332-8, 20457-5, 18539-2, 75912-7, 99263-3, 48658-1 #### [facility] CLIA [id number] [address] [place] [address] [place] AMERICANeutrophils (Bld) [#/Vol] 4.93 10*3/uLNormal1.45-7.50[facility] on above:Order Comment: Specimen Type: BLOOD SPECIMEN Ordering Facility: [facility] Address: [address] [place], [place] [address]Performed By: #### 11999-2, 18426- 5, 80461-7, 28592-0, 47169-9, 27075-1, 77004-5, 42803-8 #### [facility] CLIA [id number] [address] [place] [address] [place] AMERICANeutrophils/100 WBC (Bld) 62.3 %NormalAvita Health System [facility]ion Hospital on above:Order Comment: Specimen Type: BLOOD SPECIMEN Ordering Facility: [facility] Address: [address] [place], [place] [address]Performed By: #### 15769-6, 69358- 5, 87313-6, 14705-7, 33261-3, 80931-6, 62924-8, 28539-6 #### [facility] CLIA [id number] [address] [place] [address] [place] AMERICANucleated RBC (Bld) [#/Vol] 10*3/uLNormal<0.01[facility] on above:Order Comment: Specimen Type: BLOOD SPECIMEN Ordering Facility: [facility] Address: [address] [place], [place] [address]Performed By: #### 69963-4, 41059- 5, 17517-7, 50500-5, 86164-3, 57689-3, 37674-9, 73826-4 #### [facility] CLIA [id number] [address] [place] [address] [place] AMERICANucleated RBC/100 WBC (Bld) [Ratio]0.0 /100 WBCNormalCBarney Children's Medical Center on above:Order Comment: Specimen Type: BLOOD SPECIMEN Ordering Facility: [facility] Address: [address] [place], [place] [address]Performed By: #### 47059-4, 08791- 5, 23790-8, 60316-2, 09068-9, 09836-8, 55595-7, 74042-9 #### [facility] CLIA [id number] [address] [place] [address] [place] AMERICAPlatelet mean volume (Bld) [Entitic vol]10.2 fLNormal9.0-12.7CBarney Children's Medical Center on above: Order Comment: Specimen Type: BLOOD SPECIMEN Ordering Facility: [facility] Address: [address] [place], [place] [address]Performed By: #### 60840-4, 00494- 5, 62324-7, 57959-6, 32430-1, 61826-5, 01758-3, 75774-6 #### [facility] CLIA [id number] [address] [place] [address] [place] AMERICAPlatelets (Bld) [#/Vol]292 10*3/tUXolngp403-118ComizwcasAvita Health System [facility] on above:Order Comment: Specimen Type: BLOOD SPECIMEN Ordering Facility: [facility] Address: [address] [place], [place] [address]Performed By: #### 48293-7, 16043- 5, 26729-9, 86323-3, 61622-8, 52272-1, 29796-4, 69630-2 #### [facility] CLIA [id number] [address] [place] [address] [place] AMERICARBC (Bld) [#/Vol]5.19 10*6/uLNormal3.90-5.20[facility] on above:Order Comment: Specimen Type: BLOOD SPECIMEN Ordering Facility: [facility] Address: [address] [place], [place] [address]Performed By: #### 18138-7, 65240- 5, 52641-8, 01278-6, 07979-4, 37030-8, 41874-1, 67040-6 #### [facility] CLIA [id number] [address] [place], [place] [address]WBC (Bld) [#/Vol]7.92 10*3/uLNormal3.70-11.00[facility] on above:Order Comment: Specimen Type: BLOOD SPECIMEN Ordering Facility: [facility] Address: [address] [place], [place] [address]Performed By: #### 37189-8, 38153- 5, 32998-3, 94292-6, 71101-6, 70746-1, 11178-1, 44285-9 #### [facility] CLIA [id number] [address] [place], [place] [address]CNOVon 09-04-0953OTTCNsecbk Visit (RHEUMN) ESSIE ERICKSON ([id number]) 1965 F Date Time Provider Department 01/18/24 10:00 AM RENNY JEFFERS During your visit today, we recorded the following information about you: Temperature Pulse Blood pressure Weight 97.2 degrees 68/minute 153/100 109.2 kg Height 1.689 m Renny Jeffers MD 01/18/2024 6:39 PM Signed Rheumatology CONSULTATION Date of Service: 01/18/2024 Patient: Essie Erickson Primary Care Physician: Kayy Madrid ([place], [place]) Last Rheumatology visit: None at [facility] Referring Provider: Kristy Evangelista [address] [facility] [address] Essie Erickson is here today at request of Dr. Evangelista specifically for consultation of my opinion in regards to the chief complaint listed below. Correspondence will be shared today via the [facility] electronic health record or through regular mail, where applicable. History of Present Illness Essie Erickson is a 59 year old White female [...] (High severity ) Review (more content not included)...NormalWayne HospitalCR SerPl-mCncon 99-13-2011KHH [Mass/Vol]0.7 mg/dLNormal<0.9CBarney Children's Medical Center on above:Order Comment: Specimen Type: BLOOD SPECIMEN Order[facility] Facility[facility] Address: [address] [place], [place] [address]Performed By: #### 74091-7, 09847- 5, 49384-0, 27881-7, 25432-5, 00789-6, 78705-6, 72540-8 #### [facility] CLIA [id number] [address] [place] [address] [place] AMERICACentromere Ab IF Ql (S)on 64-08-3540Ggojoqpwqv Ab Qn (S)<0.2Normal<1.0[facility] on above:Order Comment: Specimen Type: BLOOD SPECIMEN [facility]ing [facility] Address: [address] [place], [place] [address]Result Comment: Anti-centromere antibody is used as in aid in diagnosis of systemic sclerosis. Clinical correlation is required. Test Methodology: Multiplex flow immunoassay.Performed By: #### 54386-3, 60010- 5, 87511-4, 96699-2, 86188-7, 52453-2, 26674-5, 22353-4 #### [facility] CLIA [id number] [address] [place] [address] [place] AMERICACENTROMERE AB QUALNegative NormalNegativeAvita Health System [facility] on above:Order Comment: Specimen Type: BLOOD SPECIMEN Ordering Facility[facility] Address: [address] [place], [place] [address]Performed By: #### 69145-2, 35446- 5, 96979-7, 30586-5, 25124-6, 16731-9, 98553-4, 14492-8 #### [facility] CLIA [id number] [address] [place] [address] [place] AMERICAChromatin Ab Qnon 01-18-2024 CHROMATIN AB QUALNegativeNormalNegativeCleParkwood HospitalComascension macomb on above:Order Comment: Specimen Type: BLOOD SPECIMEN Ordering Facility: [facility] Address: [address] [place], [place] [address]Performed By: #### 60756-5, 31071- 5, 78136-3, 33513-0, 57261-3, 67834-7, 18820-5, 34308-8 #### [facility] CLIA [id number] [address] [place] [address] [place] AMERICAChromatin Ab SerPl-aCncon 15-71-9564Bbfdymfyl Ab Qn<0.2Normal<1.0[facility] on above:Order Comment: Specimen Type: BLOOD SPECIMEN [facility] Address: [address] [place], [place] [address]Result Comment: Test Methodology: Multiplex flow immunoassay.Performed By: #### 08798-5, 45359-8, 71834-1, 94437- 4, 99873-6, 33127-7, 16792-0, 24947-9 #### [facility] CLIA [id number] [address] [place] [address] [place] AMERICAComprehensive metabolic 2000 panelon 61-45-9014Utktian [Mass/Vol]4.4 g/dL3.9 - 4.9 g/dLDundee ClinicALP [Catalytic activity/Vol]148 U/LHigh34 - 123 U/LCleveland ClinicALT [Catalytic activity/Vol]20 U/L7 - 38 U/LCleveland ClinicAnion gap [Moles/Vol]12 mmol/L8 - 15 mmol/LCleveland ClinicAST [Catalytic activity/Vol]25 U/L13 - 35 U/LCleveland ClinicBilirubin [Mass/Vol]0.4 mg/dL0.2 - 1.3 mg/dLDundee ClinicCalcium [Mass/Vol]9.2 mg/dL8.5 - 10.2 mg/dLCleveland ClinicChloride [Moles/Vol]102 mmol/L98 - 107 mmol/LCleveland ClinicCO2 [Moles/Vol]26 mmol/L22 - 30 mmol/L [facility] HospitalCreatinine [Mass/Vol]0.59 mg/dL0.58 - 0.96 mg/dLProvidence Hospital GFR/1.73 sq M.predicted among non-blacks MDRD (S/P/Bld) [Vol rate/Area]105 mL/min/{1.73_m2}- PINFCUniversity Hospitals Cleveland Medical CenterComment on above:Estimated Glomerular Filtration Rate (eGFR) is calculated using the 2020 CKD-EPI creatinine equation. This equation utilizes serum creatinine, sex, and age as parameters. The creatinine assay has traceable calibration to isotope dilution-mass spectrometry. Refer to KDIGO guidelines for clinical interpretation. In patients with unstable renal function, e.g. those with acute kidney injury, the eGFRmay not accurately reflect actual GFR.Glucose [Mass/Vol]91 mg/dL74 - 99 mg/dL Providence HospitalComment on above:The [place] Diabetes Association (ADA) provides guidance for cutoff values for fasting glucose andrandom glucose. The ADA defines fasting as no caloric intake for at least 8 hours. Fasting plasma gl ucose results between 100 to 125 mg/dL indicate [...] Standards of Medical Care in Diabetes 2016, [place] Diabetes Association. Diabetes Care. 2016.39(Suppl 1). Interpretation and review of laboratory resultsAbnormalCleveland ClinicPotassium [Moles/Vol]3.7 mmol/L3.7 - 5.1 mmol/LCleveland ClinicProtein [Mass/Vol]7.3 g/dL 6.3 - 8.0 g/dLDundee ClinicSodium [Moles/Vol]140 mmol/L136 - 144 mmol/L [facility] HospitalUrea nitrogen [Mass/Vol]12 mg/dL7 - 21 mg/dLProvidence Hospital Albumin [Mass/Vol]4.4 g/dLNormal3.9-4.9CBarney Children's Medical Center on above:Order Comment: Specimen Type: BLOOD SPECIMEN Ordering Facility[facility] Address: [address] [place], [place] [address]Performed By: #### 70779-7, 47189- 5, 82674-7, 59324-6, 29258-4, 70027-6, 80235-9, 08679-0 #### [facility] CLIA [id number] [address] [place] [address] [place] AMERICAALP [Catalytic activity/Vol] 148 U/COlul94-476GmrgbdbuoAvita Health System [facility] on above:Order Comment: Specimen Type: BLOOD SPECIMEN Ordering Facility: [facility] Address: [address] [place], [place] [address]Performed By: #### 77265-7, 90165- 5, 54934-9, 56699-4, 24255-0, 12157-0, 68009-1, 41336-2 #### [facility] CLIA [id number] [address] [place] [address] [place] [Catalytic activity/Vol] 20 U/LNormal7-38[facility] on above:Order Comment: Specimen Type: BLOOD SPECIMEN Ordering Facility: [facility] Address: [address] [place], [place] [address]Performed By: #### 69682-4, 12711- 5, 59272-5, 21918-8, 19135-2, 02395-9, 16654-2, 03338-7 #### [facility] CLIA [id number] [address] [place], [place] [id number] [place] AMERICAAnion gap [Moles/Vol]12 mmol/LNormal8-15[facility] on above:Order Comment: Specimen Type: BLOOD SPECIMEN Ordering Facility: [facility] Address: [address] [place], [place] [address]Performed By: #### 77634-2, 10034- 5, 54274-8, 55129-9, 74002-9, 01573-6, 61480-2, 97681-8 #### [facility] CLIA [id number] [address] [place] [address] [place] [Catalytic activity/Vol] 25 U/NEkdzfo76-38MygzzudtyAvita Health System [facility] on above:Order Comment: Specimen Type: BLOOD SPECIMEN Ordering Facility: [facility] Address: [address] [place], [place] [address]Performed By: #### 65663-0, 91711- 5, 10503-9, 94990-1, 20192-6, 28467-4, 57862-3, 33858-3 #### [facility] CLIA [id number] [address] [place] [address] [place] AMERICABilirubin [Mass/Vol]0.4 mg/dLNormal0.2-1.3CBar[facility] on above:Order Comment: Specimen Type: BLOOD SPECIMEN Ordering Facility: [facility] Address: [address] [place], [place] [address]Performed By: #### 61836-1, 61743- 5, 18829-1, 12407-2, 91838-3, 37176-1, 17196-6, 18015-5 #### [facility] CLIA [id number] [address] [place] [address] [place] AMERICACalcium [Mass/Vol]9.2 mg/dL Normal8.5-10.2CBarney [facility] on above:Order Comment: Specimen Type: BLOOD SPECIMEN Ordering Facility: [facility] Address: [address] [place], [place] [address]Performed By: #### 15455-3, 35733- 5, 44996-8, 31515-4, 66964-7, 81280-0, 77305-1, 00629-6 #### [facility] CLIA [id number] [address] [place] [address] [place] OF AMERICAChloride [Moles/Vol]102 mmol/MFjzgtn58-906MejnhqhuzAvita Health System [facility] on above:Order Comment: Specimen Type: BLOOD SPECIMEN Ordering Facility: [facility] Address: [address] [place], [place] [address]Performed By: #### 99030-9, 17008- 5, 79844-1, 66719-2, 73691-3, 56138-9, 53116-4, 50340-9 #### [facility] CLIA [id number] [address] [place] [address] [place] AMERICACO2 [Moles/Vol]26 mmol/L Pgzftz17-10DuqhevbhhAvita Health System [facility] Hospital on above:Order Comment: Specimen Type: BLOOD SPECIMEN Ordering Facility: [facility] Address: [address] [place], [place] [address]Performed By: #### 54529-1, 87470- 5, 53558-4, 49395-4, 97416-5, 98508-9, 73720-9, 56065-2 #### [facility] CLIA [id number] [address] [place] [address] [place] AMERICACreatinine [Mass/Vol]0.59 mg/dLNormal0.58-0.96[facility] on above:Order Comment: Specimen Type: BLOOD SPECIMEN Ordering Facility: [facility] Address: [address] [place], [place] [address]Performed By: #### 60199-6, 22869- 5, 00514-4, 43679-0, 14743-6, 22004-2, 94770-4, 78707-0 #### [facility] CLIA [id number] [address] [place] [address] [place] AMERICACreatinine and Glomerular filtration rate.predicted panel (S/P/Bld)105 mL/min/1.73m???Normal>=60[facility] on above:Order Comment: Specimen Type: BLOOD SPECIMEN Ordering Facility: [facility] Address: [address] [place], [place] [address]Result Comment: Estimated Glomerular Filtration Rate (eGFR) is calculated using the 2020 CKD-EPI cre atinine equation. This equation utilizes serum creatinine, sex, and age as parameters. The creatinine assay has traceable calibration to isotope dilution- mass spectrometry. Refer to KDIGO guidelines for clinical interpretation. In patients with unstable renal function, e.g. those with acute kidney injury, the eGFR may not accurately reflect actual GFR.Performed By: #### 41860-8, 95425-5, 04948-3, 19723-1, 22010-3, 21964-1, 97974-2, 24489-1 #### [facility] CLIA [id number] [address] [place] [address] [place] AMERICAGlucose [Mass/Vol]91 mg/dL Dauhty58-89JxaqubeooAvita Health System Galion Hospital on above:Order Comment: Specimen Type: BLOOD SPECIMEN Ordering Facility: [facility] Address: [address] [place], [place] [address]Result Comment: The [place] Diabetes Association (ADA) provides guidance for cutoff [...] Standards of Medical Care in Diabetes 2016, [place] Diabetes Association. Diabetes Care. 2016.39(Suppl 1).Performed By: #### 57985-6, 25225- 5, 91208-9, 17348-6, 17296-2, 47042-0, 62017-7, 49394-5 #### [facility] CLIA [id number] [address] [place], [place] [address] [place] AMERICAPotassium [Moles/Vol]3.7 mmol/LNormal3.7-5.1CBarney [facility]'s [facility] on above:Order Comment: Specimen Type: BLOOD SPECIMEN Ordering Facility: [facility] Address: [address] [place], [place] [address]Performed By: #### 88903-7, 14740- 5, 36885-6, 68267-4, 82838-7, 42489-3, 78578-9, 37226-0 #### [facility] CLIA [id number] [address] [place] [address] [place] AMERICAProtein [Mass/Vol]7.3 g/dL Normal6.3-8.0[facility] on above:Order Comment: Specimen Type: BLOOD SPECIMEN Ordering Facility: [facility] Address: [address] [place], [place] [address]Performed By: #### 03371-0, 00629- 5, 77455-3, 00622-2, 07021-3, 15791-2, 87432-7, 92996-6 #### [facility] CLIA [id number] [address] [place] [address] [place] AMERICASodium [Moles/Vol]140 mmol/L Mpsqlj313-005HybfrimvbAvita Health System Galion Hospital on above:Order Comment: Specimen Type: BLOOD SPECIMEN Ordering Facility: [facility] Address: [address] [place], [place] [address]Performed By: #### 69031-6, 77183- 5, 42054-0, 06386-9, 45337-5, 39430-5, 96061-6, 75662-9 #### [facility] CLIA [id number] [address] [place] [address] [place] AMERICAUrea nitrogen [Mass/Vol]12 mg/dLNormal7-21[facility] on above:Order Comment: Specimen Type: BLOOD SPECIMEN Ordering Facility: [facility] Address: [address] [place], [place] [address]Performed By: #### 91873-4, 85594- 5, 44152-0, 07329-4, 07980-2, 22996-1, 94288-1, 18215-5 #### [facility] CLIA [id number] [address] [place] [address] [place] AMERICACyclic citrullinated peptide IgG Qnon 89-64-4554ADE ANTIBODY IGG QUALITATIVENegativeNormalNegativeAvita Health System [facility] on above:Order Comment: Specimen Type: BLOOD SPECIMEN Ordering Facility: [facility] Address: [address] [place], [place] [address]Performed By: #### 56929-1, 61307- 5, 10884-5, 17918-8, 62805-6, 87035-6, 06565-9, 34290-2 #### [facility] CLIA [id number] [address] [place] [address] [place] AMERICADNA double strand Ab IA Qn (S)on 27-82-2143KAF LLBVXNZW21 IU/mLNormal<=200[facility] on above:Order Comment: Specimen Type: BLOOD SPECIMEN Ordering Facility: [facility] Address: [address] [place], [place] [address]Result Comment: Negative: <200 IU/mL Equivocal: 201-300 IU/mL Moderate Positive: 301-800 IU/mL Strong Positive: >801 IU/mLPerformed By: #### 52596-7, 66131-4, 75190-1, 19473- 4, 61590-5, 25801-1, 98608-0, 26407-3 #### [facility] CLIA [id number] [address] [place] [address] [place] AMERICADNA ANTIBODY QUALITATIVE INTERPRETATIONNegativeNormalNegativeAvita Health System [facility] on above: Order Comment: Specimen Type: BLOOD SPECIMEN Ordering Facility: [facility] Address: [address] [place], [place] [address]Performed By: #### 93911-6, 59119- 5, 08736-8, 56618-4, 11644-6, 18436-1, 71087-1, 88647-0 #### [facility] CLIA [id number] [address] [place], [place] [address] [address] STATES OF [facility] MEDICAL CENTERDXA Skeletal system.axial Views for bone densityOrdered By: Ccf Provider on 52-20-7924MMJZPD T-SCORE-0.1 [facility] Skeletal system.axial Views for bone density on 94-30-5712ZKFHWDRLPP: THE LOWEST T-SCORE IS -0.1 IN THE [...] FOR MORE INFORMATION ABOUT DIAGNOSIS AND TREATMENT: [facility] for Osteoporosis and Metabolic Bone Disease:? www.f.org/arthritis/osteo National Osteoporosis Foundation:? www.nof.org International Society of Clinical Densitometry www.iscd.org Travel Rn: [id number] Transcribe Date/Time: Jan 18 2024 9:10A Dictated by : ALEC ARCE MD This examination was interpreted and the report reviewed and electronically signed by: ALEC ARCE MD on Jan 18 2024 9:59PM [facility] DIVISION OF RADIOLOGY* * *Final Report* * * DATE OF EXAM: Jan 18 2024 9:08AM B 0804 - BD DXA - AXIAL SKELETON / PROCEDURE REASON: Symptomatic menopausal or female climacteric states * * * * Physician Interpretation * * * * EXAMINATION: DXA BONE DENSITOMETRY BD DXA - AXIAL SKELETON PATIENT DEMOGRAPHICS: Age: 59 years, Gender: Female SCANNER INFORMATION: DXA Model: [employer] (S/N: [id number]) Date Scanned: 01/18/2024 9:08 AM CLINICAL HISTORY: [...] had a previous bone density in the [facility] or the previous bone density was performed on a different DXA machine (new, updated model or different location) within the [facility]. VERTEBRAL FRACTURE ASSESSMENT Not performed. TRABECULAR BONE ASSESSMENT TBS not performed: BMI outside recommended range for calculation of TBS. DIVISION OF RADIOLOGYProvider, [facility] - 01/18/2024 * * *Final Report* * * DATE OF EXAM: Jan 18 2024 9:08AM [facility] DXA - AXIAL SKELETON / PROCEDURE REASON: Symptomatic menopausal or female climacteric states * * * * Physician Interpretation * * * * EXAMINATION: DXA BONE DENSITOMETRY BD DXA - AXIAL SKELETON PATIENT DEMOGRAPHICS: Age: 59 years, Gender: Female SCANNER INFORMATION: DXA Model: A21 [employer]: [employer] (S/N: [id number]) Date Scanned: 01/18/2024 9:08 AM CLINICAL HISTORY: [...] had a previous bone density in the [facility] or the previous bone density was performed on a different DXA machine (new, updated model or different location) within the [facility]. VERTEBRAL FRACTURE ASSESSMENT Not performed. [...] FOR MORE INFORMATION ABOUT DIAGNOSIS AND TREATMENT: [facility] for Osteoporosis and Metabolic Bone Disease:? www.ccf.org/arthritis/osteo National Osteoporosis Foundation:? www.nof.org International Society of Clinical Densitometry www.iscd.org Travel Rn: [id number] Transcribe Date/Time: Jan 18 2024 9:10A Dictated by : ALEC ARCE MD This examination was interpreted and the report reviewed and electronically signed by: ALEC ARCE MD on Jan 18 2024 9:59PM EST [facility] HospitalRadiology Study observation (narrative)[facility] Jo1 Ab Ser-aCncon 74-01-9274Xd-1 extractable nuclear Ab Qn (S)<0.2Normal<1.0 [facility] on above:Order Comment: Specimen Type: BLOOD SPECIMEN Ordering Facility: [facility] Address: [address] [place] [address]Eqiiydfwf By: #### 94181-3, 50070- 5, 45693-8, 54341-7, 15256-6, 80887-0, 52436-8, 07707-2 #### [facility] CLIA [id number] [address] STATES OF AMERICAENA RANCH HAND Ab Ser-aCncon 07-88-9551Hvpyfppwfknzumcoa extractable nuclear Ab Qn (S)<0.2Normal<1.0[facility] on above:Order Comment: Specimen Type: BLOOD SPECIMEN Ordering Facility: [facility] Address: [address] [place], [place] [address]Performed By: #### 24443-1, 61678- 5, 90477-2, 07009-8, 44624-5, 10932-7, 10087-1, 11566-7 #### [facility] CLIA [id number] [address] [place] [address] [place] AMERICAENA SM IgG Ser-aCncon 45-14-1575Qhhtz extractable nuclear IgG Qn (S)<0.2Normal<1.0[facility] on above:Order Comment: Specimen Type: BLOOD SPECIMEN Ordering Facility: [facility] Address: [address] [place], [place] [address]Performed By: #### 47320-6, 20389- 5, 64488-9, 56094-8, 90773-0, 10810-4, 03130-6, 24305-9 #### [facility] CLIA [id number] [address] [place] [address] STATES [place] AMERICAENA SS-A Ab Ser-aCncon 20-65-5264Zwwaimdk syndrome-A extractable nuclear Ab Qn (S)<0.2Normal<1.0 [facility] on above:Order Comment: Specimen Type: BLOOD SPECIMEN Ordering Facility: [facility] Address: [address] [place], [place] [address]Result Comment: Test Methodology: Multiplex flow immunoassay.Performed By: #### 40738-3, 74355-6, 49094-0, 01700- 4, 71202-1, 60766-6, 77856-1, 75698-9 #### [facility] CLIA [id number] [address] [place] [address] [place] AMER[place]AENA SS-B Ab Ser-aCncon 08-90-9176Hziagabu syndrome-B extractable nuclear Ab Qn (S)<0.2Normal<1.0 [facility] HospitalComment on above:Order Comment: Specimen Type: BLOOD SPECIMEN Ordering Facility: [facility] Address: [address] [place], [place] [address]Result Comment: Anti-SSB (anti-La) antibody is used as an aid in diagnosis of a variety of systemicautoimmune diseases, especially for Sjogren's syndrome and systemic lupus erythematosus. Clinical correlation is required. Test Methodology: Multiplex flow immunoassay.Performed By: #### 70827-2, 45332- 5, 06690-1, 89241-1, 47779-0, 56919-9, 25416-0, 67029-8 #### [facility] CLIA [id number] [address] [place] [address] [place] [facility]AMP[facility] MEDICAL CENTERESR Westergren method (Bld) [Velocity]on 77-28-0932PDL (Bld) [Velocity]12 mm/hCleveland ClinicInterpretation and review of laboratory resultsNormalCleveland [facility] (Bld) [Velocity]12 mm/hNormal0-20[facility] HospitalComasc[facility] on above:Order Comment: Specimen Type: BLOOD SPECIMEN Ordering Facility: [facility] Address: [address] [place], [place] [address]Performed By: #### 96456-1, 96537- 5, 49706-6, 15026-3, 67236-4, 15964-0, 97424-2, 67628-5 #### [facility] CLIA [id number] [address] [place] [address] [place] AMERICAHBV core Ab Ser Qlon 33-76-4882EIM core Ab Ql (S)NegativeNormalNegativeWayne Hospital Comment on above:Order Comment: Specimen Type: BLOOD SPECIMEN Ordering Facility: [facility] Address: [address] [place], [place] [address]Result Comment: No evidence of current or past infection with Hepatitis B virus. Should recent infection be suspected, repeat testing may be considered 3-4 weeks after this draw.Performed By: #### 15472-8, 88199-1, 06314-4, 17135-9, 89729-8, 56321-1, 42459-8, 73399-2 #### [facility] CLIA [id number] [address] [place] [address] [place] AMERICAHBV surface Ab Ql (S)on 92-30-7131UML surface Ab Qn (S)120.75 mIU/mLNSelect Medical Specialty Hospital [facility], Inc Comment on above:Order Comment: Specimen Type: BLOOD SPECIMEN Ordering Facility[facility] Address: [address] [place], [place] [address]Result Comment: <8 mIU/mL: No serological evidence of immunity to Hepatitis B Virus. >/= 8 to <12 mIU/mL: No serological evidence of immunity to Hepatitis B Virus. >/= 12 mIU/mL: Consistent with serological evidence of immunity to Hepatitis B Virus.Performed By: #### 74969-5, 48393-4, 28786-8, 69048-9, 92777-7, 62702-1, 11706-1, 08821-3 #### [facility] CLIA [id number] [address] [place] [address] [place] AMERICAHBV surface Ab Ser Qlon 50-99-2320UHY surface Ab Ql (S)PositiveNormalCUniversity Hospitals Ahuja Medical CenterComment on above:Order Comment: Specimen Type: BLOOD SPECIMEN Ordering Facility: [facility] Address: [address] [place], [place] [address]Result Comment: Consistent with serological evidence of immunity to Hepatitis B Virus.Performed By: #### 44848- 5, 12380-3, 81944-0, 27430-8, 35910-0, 76595-7, 10920-3, 12413-0 #### [facility] CLIA [id number] [address] [place] [address] [place] AMERICAHBV surface Ag Ser Qlon 45-97-6221WEQ surface Ag Ql (S)NegativeNormalNegativeWayne Hospital Comment on above:Order Comment: Specimen Type: BLOOD SPECIMEN Ordering Facility: [facility] Address: [address] [place], [place] [address]Performed By: #### 14046-8, 39287- 5, 72329-3, 16444-8, 93510-1, 88870-9, 43786-1, 40988-5 #### [facility] CLIA [id number] [address] [place] [address] [place] AMERICAHCV Ab Ser Qlon 01-18-2024 HCV Ab Ql (S)NegativeNormalNegativeWayne HospitalComment on above: Order Comment: Specimen Type: BLOOD SPECIMEN Ordering Facility: [facility] Address: [address] [place], [place] [address]Result Comment: The result suggests no evidence of active infection with Hepatitis C virus. Should recent infection be suspected, repeat testing may be considered 4-6 weeks after this draw. Performed By: #### 10984-2, 43092-0, 47910-1, 94790-9, 53523-1, 64917-0, 80243- 9, 06193-4 #### [facility] CLIA [id number] [address] [place] [address] [place] AMERICAJo-1 extractable nuclear Ab Qn (S)on 62-59-2514KD 1 ANTIBODY QUALNegativeNormalNegativeAvita Health System [facility] on above:Order Comment: Specimen Type: BLOOD SPECIMEN [facility] Address: [address] [place], [place] [address]Result Comment: Anti-RACHEL-1 antibody is used as an aid in diagnosis of polymyositis and dermatomyositis especially with pulmonary involvement. A negative result cannot rule out polymyositis or dermatomyositis. Clinical correlation is required. Test Methodology: Multiplex flow immunoassay.Performed By: #### 18555-8, 46370- 5, 09248-2, 77545-1, 82301-0, 06097-2, 27677-3, 18360-8 #### [facility] CLIA [id number] [address] [place] [address] [place] AMERICANo Panel Informationon 70-64-5895Zmslbbbemxqqul and review of laboratory resultsNormalCMercy Health Urbana HospitalRHEUMATOID FACTORon 47-91-6196Roclvmrrsk factor Qn12 [IU]/mLNINF Providence HospitalRheumatoid fact SerPl-aCncon 07-76-7920Qqduxvswrt factor Qn12 [IU]/mLNormal<16[facility] on above:Order Comment: Specimen Type: BLOOD SPECIMEN Ordering Facility[facility] Address: [address] [place], [place] [address]Performed By: #### 96471-4, 20422- 5, 94412-3, 73056-5, 67911-4, 81564-9, 67793-3, 43501-2 #### [facility] CLIA [id number] [address] [place] [address] [place] AMERICARheumatoid factor Qnon 73-25-6600Eottywlrazgbkg and review of laboratory resultsNoOhioHealth Doctors HospitalRibonucleoprotein extractable nuclear Ab Qn (S)on 01-18-2024 ANTI-RANCH HAND QUALNegativeNormalNegativeAvita Health System [facility] on above: Order Comment: Specimen Type: BLOOD SPECIMEN Ordering Facility[facility] Address: [address] [place], [place] [address]Performed By: #### 98388-6, 25318- 5, 78045-7, 91780-2, 47898-9, 30176-4, 12335-5, 61313-0 #### [facility] CLIA [id number] [address] [place] [address] [place] AMERICARIBOSOMAL RANCH HAND QUALNegative NormalNegativeAvita Health System [facility] Hospital on above:Order Comment: Specimen Type: BLOOD SPECIMEN [facility]ing Facility[facility] Address: [address] [place], [place] [address]Result Comment: Anti-Ribosomal RNA (Ribosomal P) antibody is used as an aid in diagnosis of systemic autoimmune diseases especially systemic lupus erythematosus and mixed connective tissue disease. Cross-reactivity with Anti-leone antibody is not uncommon. Clinical correlation is required. Test Methodology: Multiplex flow immunoassay.Performed By: #### 71118-0, 52211- 5, 35824-7, 34880-7, 69193-5, 42432-8, 02561-0, 07625-0 #### [facility] CLIA [id number] [address] [place] [address] [place] AMERICASCL-70 extractable nuclear IgG IA Qn (S)on 01-08-8772UKUILKTKRKT AB QUALNegativeNormalNegativeAvita [facility] on above:Order Comment: Specimen Type: BLOOD SPECIMEN Ordering Facility: [facility] Address: [address] [place], [place] [address]Performed By: #### 99399-6, 62290- 5, 48877-0, 15205-0, 66301-5, 39127-6, 98768-1, 98649-4 #### [facility] CLIA [id number] [address] [place] [address] [place] AMERICASCLERODERMA IGG AB<0.2Normal <1.0[facility] on above:Order Comment: Specimen Type: BLOOD SPECIMEN Ordering Facility[facility] Address: [address] [place], [place] [address]Result Comment: Scl-70/Scleroderma antibody test is used as an aid in diagnosis of systemic sclerosis especially the diffuse cutaneous form. A negative result cannot rule out systemic sclerosis. The final interpretation should consider clinical picture and other test results such as anti-centromereantibody. Test Methodology: Multiplex flow immunoassay.Performed By: #### 38817-1, 62749-5, 55598-9, 07088-1, 14449-7, 93449-5, 85003-4, 84352-7 #### [facility] CLIA [id number] [address] [place] [address] [place] AMERICASjogrens syndrome-A extractable nuclear Ab Qn (S)on 94-92-7666CHL ANTIBODY QUALNegativeNormal NegativeAvita Health System [facility] Hospital on above:Order Comment: Specimen Type: BLOOD SPECIMEN Ordering Facility[facility] Address: [address] [place], [place] [address]Performed By: #### 69077-5, 07621- 5, 14927-1, 45542-8, 26453-7, 71380-4, 42914-7, 76390-5 #### [facility] CLIA [id number] [address] [place] [address] [place] AMERICASjogrens syndrome-B extractable nuclear Ab Qn (S)on 15-96-4529YYW ANTIBODY QUALNegativeNormal NegativeAvita Health System [facility] Hospital on above:Order Comment: Specimen Type: BLOOD SPECIMEN Ordering Facility[facility] Address: [address] [place], [place] [address]Performed By: #### 76879-5, 30282- 5, 85278-1, 50550-2, 69463-6, 54671-1, 55525-7, 05241-7 #### [facility] CLIA [id number] [address] [place] [address] [place] AMERICASmith extractable nuclear IgG Qn (S)on 78-11-3075ZB ANTIBODY QUALNegativeNormalNegativeAvita Health [facility] on above:Order Comment: Specimen Type: BLOOD SPECIMEN [facility]ing [facility] Address: [address] [place], [place] [address]Result Comment: Anti-Sm (Leone) antibody is used as an aid in diagnosis of systemic lupus erythematosus and its presence is associated with renal disease. A negative result cannot rule out systemic lupus erythematosus. Clinical correlation is required. Test Methodology: Multiplex flow immunoassay.Performed By: #### 28411-7, 78442- 5, 68845-3, 92245-8, 84323-8, 64275-5, 85321-3, 11339-0 #### [facility] CLIA [id number] [address] [place], [place] [address] [place] [address] [place] AMERICAUrinalysis complete panel (U)on 80-18-6750Agkszfvh uC1528.4 uLHighNegativeClesheltering arms hospital ClinicBilirubin Ql (U) NegativeNegativeDundee ClinicClarity (Unsp spec)ClearClearCleveland Clinic Color (U)YellowYellowProvidence HospitalEpithelial cells LM.HPF (Urine sed) [#/Area]Moderate/HPFProvidence HospitalGlucose Test strip (U) [Mass/Vol]Negative NegativeProvidence HospitalHemoglobin Ql (U)NegativeNegativeProvidence HospitalHyaline casts (Urine sed) [#/Area]0 /[LPF]0 /LPFCleveland ClinicInterpretation and review of laboratory resultsAbnormalCleveland ClinicKetones Ql (U)Negative NegativeProvidence HospitalLeukocyte esterase Test strip Ql (U)NegativeNegative Providence HospitalNitrite Ql (U)NegativeNegativeDundee ClinicpH (U)6.5 [pH]NINF - 8.5Cleveland ClinicProtein (U) [Mass/Vol]TraceAbnormalNegativeProvidence HospitalRBC LM.HPF (Urine sed) [#/Area]0-2 /HPF0-2 /HPFBarney Children's Medical Centerpecific gravity (U) [Rel density]1.0191.005 - 1.030Providence HospitalUrobilinogen Ql (U) 0.2 EU/dL0.2-1.0 EU/dLProvidence HospitalWBC LM.HPF (Urine sed) [#/Area]0-5 /HPF0-5 /HPFDundee ClinicThis test was developed and its performance characteristics determined by [facility]'s [facility] ([facility]PL[facility]). It has not been cleared or approved by the FDA. -[facility] is regulated under CLIA as qualified to perform high-complexity testing. Thistest is used for clinical purposes. It should not be regarded as investigational or for research. Sheltering Arms HospitalBACTERIA JO5095.4 uLHighNegativeProvidence Hospital ClevelandComment on above:Order Comment: Specimen Type: BLOOD SPECIMEN [facility] Address: [address] [place], [place] [address]Performed By: #### 36711-7, 32036- 5, 58739-4, 49853-1, 88074-4, 11404-2, 96795-4, 96407-9 #### [facility] CLIA [id number] [address] [place] [address] [place] AMERICABilirubin Ql (U)Negative NormalNegativeAvita Health System [facility] on above:Order Comment: Specimen Type: BLOOD SPECIMEN Ordering Facility: [facility] Address: [address] [place], [place] [address]Performed By: #### 87149-6, 96393- 5, 74254-6, 84200-8, 54183-6, 33065-0, 13401-8, 54752-0 #### [facility] CLIA [id number] [address] [place] [address] [place] OF AMERICAClarity (Unsp spec)Clear NormalClearCBarney Children's Medical Center on above:Order Comment: Specimen Type: BLOOD SPECIMEN Ordering Facility: [facility] Address: [address] [place], [place] [address]Performed By: #### 22274-9, 68893- 5, 14646-4, 48871-3, 85151-9, 71455-0, 92512-7, 78767-0 #### [facility] CLIA [id number] [address] [place] [address] [place] AMERICAColor (U)YellowNormalYellow [facility] on above:Order Comment: Specimen Type: BLOOD SPECIMEN Ordering Facility: [facility] Address: [address] [place], [place] [address]Performed By: #### 11972-2, 63316- 5, 50281-5, 21646-5, 05786-8, 23352-8, 76092-1, 67981-1 #### [facility] CLIA [id number] [address] [place] [address] [place] AMERICAEpithelial cells LM.HPF (Urine sed) [#/Area]ModerateNormalClevelLicking Memorial Hospital on above: Order Comment: Specimen Type: BLOOD SPECIMEN Ordering Facility: [facility] Address: [address] [place], [place] [address]Performed By: #### 21576-6, 73728- 5, 79285-5, 59367-3, 07084-5, 75339-8, 64748-0, 06861-6 #### [facility] CLIA [id number] [address] [place] [address] [place] AMERICAGlucose Test strip (U) [Mass/Vol]NegativeNormalNegativeAv[facility] on above:Order Comment: Specimen Type: BLOOD SPECIMEN Ordering Facility: [facility] Address: [address] [place], [place] [address]Performed By: #### 40925-3, 16954- 5, 82087-7, 45821-3, 12560-5, 73214-6, 72301-5, 21399-3 #### [facility] CLIA [id number] [address] [place] [address] [place] AMERICAHemoglobin Ql (U)Negative NormalNegativeAvita Health [facility] on above:Order Comment: Specimen Type: BLOOD SPECIMEN Ordering Facility: [facility] Address: [address] [place], [place] [address]Performed By: #### 20647-2, 53513- 5, 77738-4, 16524-5, 23928-3, 40447-7, 05310-4, 27624-7 #### [facility] CLIA [id number] [address] [place] [address] [place] AMERICAHyaline casts (Urine sed) [#/Area]0 /[LPF]Normal0 /LPFCBarney Children's Medical Center on above:Order Comment: Specimen Type: BLOOD SPECIMEN Ordering Facility: [facility] Address: [address] [place], [place] [address]Performed By: #### 00962-4, 96677- 5, 56518-8, 21962-6, 04695-2, 50528-3, 86960-3, 96731-7 #### [facility] CLIA [id number] [address] [place] [address] [place] AMERICAKetones Ql (U)NegativeNormal NegativeAvita [facility] System [facility] on above:Order Comment: Specimen Type: BLOOD SPECIMEN Ordering Facility: [facility] Address: [address] [place], [place] [address]Performed By: #### 91115-1, 69628- 5, 45042-1, 63327-0, 91962-4, 80455-6, 53648-3, 83148-6 #### [facility] CLIA [id number] [address] [place] [address] [place] AMERICALeukocyte esterase Test strip Ql (U)NegativeNormalNegativeAv[facility] on above: Order Comment: Specimen Type: BLOOD SPECIMEN Ordering Facility: [facility] Address: [address] [place], [place] [address]Performed By: #### 22269-1, 21527- 5, 65321-7, 20920-7, 08928-7, 83196-0, 67056-6, 41747-0 #### [facility] CLIA [id number] [address] [place] [address] [place] AMERICANitrite Ql (U)NegativeNormal NegativeAvita Health System [facility] on above:Order Comment: Specimen Type: BLOOD SPECIMEN Ordering Facility: [facility] Address: [address] [place], [place] [address]Performed By: #### 88089-0, 28710- 5, 47575-7, 86011-4, 80404-1, 39118-1, 28936-7, 21601-7 #### [facility] CLIA [id number] [address] [place] [address] [place] AMERICApH (U)6.5 [pH]Normal<8.5 [facility] on above:Order Comment: Specimen Type: BLOOD SPECIMEN Ordering Facility: [facility] Address: [address] [place], [place] [address]Performed By: #### 94571-6, 57992- 5, 18022-2, 33483-5, 43875-6, 28679-8, 38296-5, 69428-1 #### [facility] CLIA [id number] [address] [place] [address] [place] AMERICAProtein (U) [Mass/Vol]Trace AbnormalNegativeAvita [facility] on above:Order Comment: Specimen Type: BLOOD SPECIMEN Ordering Facility: [facility] Address: [address] [place], [place] [address]Performed By: #### 20580-3, 29682- 5, 39287-1, 47249-6, 65520-8, 98174-2, 89646-6, 64483-0 #### [facility] CLIA [id number] [address] [place] [address] [place] AMERICARBC LM.HPF (Urine sed) [#/Area]0-2 /HPFNormal0-2 /HPFAvita Health System [facility] on above:Order Comment: Specimen Type: BLOOD SPECIMEN Ordering Facility: [facility] Address: [address] [place], [place] [address]Performed By: #### 54672-8, 68838- 5, 84858-0, 32243-0, 49278-3, 92841-4, 20995-7, 51823-6 #### [facility] CLIA [id number] [address] [place], [place] [id number] [place] AMERICASpecific gravity (U) [Rel density]1.075Urymmt8.005-1.030[facility] on above:Order Comment: Specimen Type: BLOOD SPECIMEN Ordering Facility: [facility] Address: [address] [place], [place] [address]Performed By: #### 08103-8, 95311- 5, 49042-4, 50887-5, 25275-6, 70449-5, 85376-9, 46913-9 #### [facility] CLIA [id number] [address] [place] [address] [place] AMERICAUrobilinogen Ql (U)0.2 EU/dL Normal0.2-1.0 EU/dLAvita Health System [facility] on above:Order Comment: Specimen Type: BLOOD SPECIMEN Ordering Facility: [facility] Address: [address] [place], [place] [address]Performed By: #### 24244-5, 73544- 5, 31635-8, 28584-9, 73536-0, 54366-3, 86832-0, 72520-5 #### [facility] IA [id number] [address] [place] [address] [place] AMERICAWBC LM.HPF (Urine sed) [#/Area]0-5 /HPFNormal0-5 /HPFAvita Health System [facility] on above:Order Comment: Specimen Type: BLOOD SPECIMEN Ordering Facility: [facility] Address: [address] [place], [place] [address]Performed By: #### 51161-9, 01664- 5, 08041-4, 31756-4, 44592-5, 04054-4, 19067-5, 89082-8 #### [facility] [place] [id number] [address] [place] [address] [place] AMERICAcCP IgG SerPl-aCncon 35-83-8335Xnuktd citrullinated peptide IgG Qn<15Normal<20[facility] on above:Order Comment: Specimen Type: BLOOD SPECIMEN Ordering Facility: [facility] Address: [address] [place], [place] [address]Performed By: #### 47598-8, 05517- 5, 61065-8, 71837-0, 83849-3, 42562-0, 50022-9, 34313-9 #### [facility] CLIA [id number] [address] [id number] [facility] Follow-up [id number] Essie Erickson 1965 F Date Provider Department Center 12/02/2023 Sami-SUSANNE PAZ [facility] Family History Problem Relation Age of Onset Heart attack Mother's Brother Hypertension Maternal Grandmother Family Status - Relation Status Age at Mother's Brother Maternal Grandmother Level of Service:35276 GA OFFICE/OUTPATIENT ESTABLISHED LOW MDM 20 MIN Reason for Visit and Comments: Atrial Fibrillation [80][facility] CenterCNOVon 86-38-3039VZESZbrwrd Visit (WCTRMN) ESSIE ERICKSON ([id number]) 1965 F Date Time Provider Department 11/23/23 [...] lost both of her sisters 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 Last mammo 4-6 wks at [facility]. BONE: Denies FMH OP/fx. No PMH OP/non [...] the HT first a (more content not included)...NormalWayne HospitalOrders Onlyon 44-69-0305Ueewut [id number] Essie Erickson 1965 F Date Provider Department Center 11/20/2023 [id number], HISTORICAL ASHWIN Patel Family History Problem Relation Age of Onset Heart attack Mother's Brother Hypertension Maternal Grandmother Family Status - Relation Status Age at Mother's Brother Maternal GrandmotherNFayette County Memorial HospitalOrders Onlyon 92-14-9940Kwcstk [id number] Essie Erickson 1965 F Date Provider Department Center 11/17/2023 [id number], HISTORICAL [facility] CARD Rodríguez Count Family History Problem Relation Age of Onset Heart attack Mother's Brother Hypertension Maternal Grandmother Family Status - Relation Status Age at Mother's Brother Maternal GrandmotherNormalAultman HospitalINSULINon 55-00-6884Anyhzfj8.5 uIU/mLNormal2.6-24.9The [facility] CenterComment on above: Performed By: #### INSULIN #### [facility] [address] [place] [address] Dr. Delonte SparrowAMMONIAon 65-00-0434Vtdwoir (P) [Moles/Vol]33 umol/LCritically azfv34-66Xej [facility] CenterComment on above:Performed By: #### AMM #### [facility] [address] [place] [address] Dr. Delonte SparrowAMYLASEon 08-66-9776Hczedna [Catalytic activity/Vol]47 U/LNormal 25-115The [facility] CenterComment on above:Performed By: #### LIPA, CMP, NONI #### [facility] [address] [place] [address] Dr. Delonte Phipps AUTO DIFFon 36-36-7984EPKI #0.0 103/ulNormal0.0-0.1The [facility] CenterComment on above:Performed By: #### CBC #### [facility] [address] [place] [address] Dr. Delonte SparrowBasophils/100 WBC (Bld)0.7 %Normal0.2-2.0The [facility] Comment on above:Performed By: #### CBC #### [facility] [address] [place] [address] Dr. Delonte Baker #0.3 103/ulNormal0.0-0.7The [facility] CenterComment on above: Performed By: #### CBC #### [facility] [address] [place] [address] Dr. Delonte Cárdenasosinophils/100 WBC (Bld)4.3 %Normal0.9-7.0The [facility] Comment on above:Performed By: #### CBC #### [facility] [address] [place] [address] Dr. Delonte Cárdenasrythrocyte distribution width (RBC) [Ratio]15.0 %Xsqcwy96.0-15.0 The [facility] CenterComment on above:Performed By: #### CBC #### [facility] [address] [place] [address] Dr. Delonte SparrowHematocrit (Bld) [Volume fraction]38.8 %Fnnnjc86.0-48.0The [facility] CenterComment on above:Performed By: #### CBC #### [facility] [address] [place] [address] Dr. Delonte SparrowHemoglobin (Bld) [Mass/Vol]12.0 g/oAQinydb89.0-16.0The [facility] CenterComment on above:Performed By: #### CBC #### [facility] [address] [place] [address] Dr. Delonte SparrowIG #0.03 10e3/ulNormal0.00-0.03The [facility] CenterComment on above:Performed By: #### CBC #### [facility] [address] [place] [address] Dr. Delonte SparrowIG %0.5 %Normal0.0-0.5The [facility] CenterComment on above: Performed By: #### CBC #### [facility] [address] [place] [address] Dr. Delonte AlexandreMPH #1.7 103/ulNormal1.2-3.8The [facility] CenterComment on above:Performed By: #### CBC #### [facility] [address] [place] [address] Dr. Delonte Alexandremphocytes/100 WBC (Bld)27.3 %Dlmhqu61.5-60.0The [facility] CenterComment on above:Performed By: #### CBC #### [facility] [address] [place] [address] Dr. Delonte Chávez DIFF REQNONormalThe [facility] Health CenterComment on above: Performed By: #### CBC #### [facility] [address] [place] [address] Dr. Delonte Gordon (RBC) [Entitic mass]24.1 pgCritically low26.7-34.0The [facility] CenterComment on above:Performed By: #### CBC #### [facility] [address] [place] [address] Dr. Delonte Gordon (RBC) [Mass/Vol]30.9 g/gKTkbnyd86.9-35.2The [facility] CenterComment on above:Performed By: #### CBC #### [facility] [address] [place] [address] Dr. Delonte Gordon (RBC) [Entitic vol]78.1 fLCritically low81.0-99.0The [facility] CenterComment on above:Performed By: #### CBC #### [facility] [address] [place] [address] Dr. Delonte Cope #0.4 103/ulNormal0.3-0.8The [facility] CenterComment on above:Performed By: #### CBC #### [facility] [address] [place] [address] Dr. Delonte Clearyocytes/100 WBC (Bld)6.4 %Normal1.7-12.0The [facility] Comment on above:Performed By: #### CBC #### [facility] [address] [place] [address] Dr. Delonte Baird #3.7 103/ulNormal1.4-6.5The [facility] CenterComment on above:Performed By: #### CBC #### [facility] [address] [place] [address] Dr. Delonte Pérezutrophils/100 WBC (Bld)60.8 %Aqqsal27.0-75.0The [facility] CenterComment on above:Performed By: #### CBC #### [facility] [address] [address] [address] Delonte Krishnamurthylet mean volume (Bld) [Entitic vol]9.7 fLNormal9.5-13.5The [facility] CenterComment on above:Performed By: #### CBC #### [facility] [address] [place] [address] Dr. Delonte SparrowPLT263 103/ofMfmzvx369-706Kky [facility] CenterComment on above: Performed By: #### CBC #### [facility] [address] [place] [address] Dr. Delonte SparrowRBC4.97 106/ulNormal4.20-5.40The [facility] CenterComment on above:Performed By: #### CBC #### [facility] [address] [place] [address] Dr. Delonte SparrowWBC6.1 103/ulNormal4.0-11.0The [facility] CenterComment on above: Performed By: #### CBC #### [facility] [address] [place] [address] Dr. Delonte SparrowFREE THYROXINE INDEX T7on 41-98-1441ULZ5.28Omfuax4.30-4.50The [facility] Health CenterComascension macomb on above:Performed By: #### LIPA, CMP, NONI #### [facility] [address] [place] [address] Dr. Delonte SparrowT3U33.0 %Ycwchy44.0-39.0The [facility] CenterComment on above: Performed By: #### LIPA, CMP, NONI #### [facility] [address] [place] [address] Dr. Delonte SparrowT4 [Mass/Vol]7.90 ug/dLNormal4.80-13.90The [facility] Comment on above:Performed By: #### LIPA, CMP, NONI #### [facility] [address] [place] [address] Dr. Delonte SparrowGLYCOHEMOGLOBIN A1Con 90-94-4370JXJ RECOMMENDATIONSEE BELOWNormal The [facility] CenterComment on above:Result Comment: ADA RECOMMENDED LIMIT 4.0 - 6.0 ADA THERAPEUTIC TARGET < 7.0 ACTION SUGGESTED > 7.0Performed By: #### A1C #### [facility] [address] [place] [address] Dr. Delonte SparrowGlucose [Mass/Vol]105 mg/dLTriHealthment on above:Performed By: #### A1C #### [facility] [address] [place] [address] Dr. Delonte SparrowHbA1c (Bld) [Mass fraction]5.3 %Normal4.5-6.2The [facility] CenterComment on above:Performed By: #### A1C #### [facility] [address] [place] [address] Dr. Delonte Pal 93-83-8826Yhfu [Mass/Vol]35.0 ug/dLCritically low 50.0-170.0The [facility] Centerment on above:Performed By: #### LIPA, CMP, NONI #### [facility] [address] [place] [address] Dr. Delonte SparrowLIPASEbay 07-15-0795Kszkzc [Catalytic activity/Vol]130.0 U/LNormal 73.0-393.0The [facility] on above:Performed By: #### LIPA, CMP, NONI #### [facility] [address] [place] [address] Dr. Delonte SparrowTSHobrenda 96-56-5583HRH1.741 uIU/mLNormal0.358-3.740The [facility] CenterComascension macomb on above:Performed By: #### LIPA, CMP, NONI #### [facility] [address] [place] [address] Dr. Delonte SparrowVITAMIN D 25 OHon 02-48-2200GHY D 25-OH20.9 ng/mLNormalThe [facility] Health CenterComascension macomb on above:Performed By: #### IRON, VITAD #### [facility] [address] [place] [address] Dr. Delonte Sullivan D RANGES[place] BELOWNoAvita Health System Galion HospitalComment on above: Result Comment: <20 ng/mL Vit D deficient 20 - <30 ng/mL Vit D insufficient 30 - 100 ng/mL Vit D sufficient >100 ng/mL Potential ToxicityPerformed By: #### IRON, VITAD #### [facility] [address] [place] [address] Dr. Delonte SparrowAMYLASEon 73-81-4812Nbmsmbz [Catalytic activity/Vol]26 U/LNormal 25-115The [facility] Medical Centerment on above:Performed By: #### LIPA, CMP, NONI #### [facility] [address] [place] [address] Dr. Delonte Phipps W MANUAL DIFFon 42-32-4282PGJMVLJF LYMPH #NormalThe [facility] CenterComment on above:Performed By: #### KATY #### [facility] [address] [place] [address] Dr. Delonte AbbottICAL LYMPH %NormalThe [facility] CenterComment on above: Performed By: #### KATY #### [facility] [address] [place] [address] Dr. Delonte Silva #Normal0.0-0.3The [facility] CenterComment on above: Performed By: #### KATY #### [facility] [address] [place] [address] Dr. Delonte Silva %Normal0-5The [facility] CenterComment on above:Performed By: #### KATY #### [facility] [address] [place] [address] Dr. Delonte Huffman #0.00 103/ulNormal0.00-0.10The [facility] CenterComment on above:Performed By: #### KATY #### [facility] [address] [place] [address] Dr. Delonte Huffman %0.0 %Critically low0.2-2.0The [facility] CenterComment on above:Performed By: #### KATY #### [facility] [address] [place] [address] Dr. Delonte Godinez #NormalThe [facility] CenterComment on above:Performed By: #### KATY #### [facility] [address] [address] [address] Delonte SparrowBLAST %NormalThe [facility] CenterComment on above:Performed By: #### KATY #### [facility] [address] [address] [address] Delonte SparrowCORRECTED WBCNormal4.0-11.0The [facility] CenterComment on above: Performed By: #### KATY #### [facility] [address] [address] [address] Delonte Langley #15.45 103/ulCritically high0.00-0.70The [facility] on above:Performed By: #### KATY #### [facility] [address] [place] [address] Dr. Delonte Langley%57.0 %Critically high0.9-7.0The [facility] CenterComment on above:Performed By: #### KATY #### [facility] [address] [place] [address] Dr. Delonte SparrowHCT45.1 %Xvztme86.0-48.0The [facility] CenterComment on above: Performed By: #### KATY #### [facility] [address] [place] [address] Dr. Delonte pSarrowHGB13.9 g/zxMumaba43.0-16.0The [facility] CenterComment on above: Performed By: #### KATY #### [facility] [address] [place] [address] Dr. Delonet Driscoll #2.98 103/ulNormal1.20-3.80The [facility] CenterComment on above:Performed By: #### KATY #### [facility] [address] [place] [address] Dr. Delonte Driscoll%11.0 %Critically low20.5-60.0The [facility] CenterComment on above:Performed By: #### KATY #### [facility] [address] [place] [address] Dr. Delonte GordonH23.3 pgCritically low26.7-34.0The [facility] CenterComment on above:Performed By: #### KATY #### [facility] [address] [address] [address] Delonte GordonHC30.8 g/haWgymer47.9-35.2The [facility] HospitalComment on above:Performed By: #### KATY #### [facility] [address] [address] [address] Delonte GordonV75.5 fLCritically low81.0-99.0The [facility] HospitalComment on above:Performed By: #### KATY #### [facility] [address] [place] [address] Dr. Delonte Leone #NormalThe [facility] CenterComment on above: Performed By: #### KATY #### [facility] [address] [place] [address] Dr. Delonte VargasOCYTE %NormalThe [facility] CenterComment on above: Performed By: #### KATY #### [facility] [address] [place] [address] Dr. Delonte Reynolds#1.63 103/ulCritically high0.30-0.80The [facility] Comment on above:Performed By: #### KATY #### [facility] [address] [place] [address] Dr. Delonte Reynolds%6.0 %Normal1.7-12.0The [facility] HospitalComment on above: Performed By: #### KATY #### [facility] [address] [place] [address] Dr. Delonte Jordan9.9 fLNormal9.5-13.5The [facility] CenterComment on above: Performed By: #### KATY #### [facility] [address] [place] [address] Dr. Delonte De LeonOCYTE #NormalThe [facility]el HospitalComment on above:Performed By: #### KATY #### [facility] [address] [address] [address] Delonte GouldELOCYTE %NormalMercy HealthComment on above:Performed By: #### KATY #### [facility] [address] [address] [address] Delonte MeloBCNoalThe [facility] CenterComment on above:Performed By: #### KATY #### [facility] [address] [address] [address] Delonte FryT343 103/pxParzgd802-202Uzy [facility] CenterComment on above: Performed By: #### KATY #### [facility] [address] [address] [address] Delonte MejiaC5.97 106/ulCritically high4.20-5.40The [facility] Comment on above:Performed By: #### KATY #### [facility] [address] [place] [address] Dr. Delonte GarciaW16.9 %Critically high11.0-15.0Mercy HealthComment on above:Performed By: #### KATY #### [facility] [address] [place] [address] Dr. Delonte Cabrera #7.05 103/ulCritically high1.40-6.50The [facility] Comment on above:Performed By: #### KATY #### [facility] [address] [place] [address] Dr. Delonte Cabrera %26.0 %Critically low43.0-75.0The [facility] CenterComment on above:Performed By: #### KATY #### [facility] [address] [place] [address] Dr. Delonte LopezBC27.1 103/ulCritically high4.0-11.0The [facility] CenterComment on above:Performed By: #### KATY #### [facility] [address] [place] [address] Dr. Delonte SparrowCT ABD/PELV W CONon 27-32-2144TX ABD/PELV W CONCT ABDOMEN AND PELVIS WITH CONTRAST: INDICATION: Weight [...] is no aneurysm of the abdominal aorta. PERITONEUM/RETROPERITONEUM: There is mild to moderate ascites. No [...] Electronically authenticated by: DWIGHT TOBAR Date: 2021-08-21 16:48NormalThe [facility] Health CenterLIPASEon 64-59-7289Apzjhx [Catalytic activity/Vol]58.0 U/L Critically low73.0-393.0The [facility] Health CenterComment on above:Performed By: #### LIPA, CMP, NONI #### [facility] [address] [place] [address] Dr. Delonte Talamantes 14(COMP METB)on 92-09-7630Tyuzrux [Mass/Vol]3.6 g/dLNormal 3.4-5.0The [facility] CenterComment on above:Performed By: #### LIPA, CMP, NONI #### [facility] [address] [place] [address] Dr. Delonte SparrowAlbumin/Globulin [Mass ratio]1.0 {ratio}NormalThe [facility] Health CenterComment on above:Performed By: #### LIPA, CMP, NONI #### [facility] [address] [place] [address] Dr. Delonte Goff [Catalytic activity/Vol]125 U/LCritically ntvj99-049Fsm [facility] CenterComment on above:Performed By: #### LIPA, CMP, NONI #### [facility] [address] [place] [address] Dr. Delonte Otero [Catalytic activity/Vol]27 U/USmizki44-53Ark [facility] CenterComment on above:Performed By: #### LIPA, CMP, NONI #### [facility] [address] [place] [address] Dr. Delonte Carmen gap [Moles/Vol]12.7 mmol/LNormalThe [facility] Comment on above:Performed By: #### LIPA, CMP, NONI #### [facility] [address] [place] [address] Dr. Delonte Cardoso [Catalytic activity/Vol]15 U/LKaeamc30-26Fjg [facility] CenterComment on above:Performed By: #### LIPA, CMP, NONI #### [facility] [address] [address] [address] Delonte SparrowBilirubin [Mass/Vol]0.3 mg/dLNormal0.2-1.0The [facility] Comment on above:Performed By: #### LIPA, CMP, NONI #### [facility] [address] [address] [address] Delonte SparrowCalcium [Mass/Vol]8.2 mg/dLCritically low8.5-10.1The [facility] CenterComment on above:Performed By: #### LIPA, CMP, NONI #### [facility] [address] [address] [address] Delonte SparrowChloride [Moles/Vol]103 mmol/RQcdpmi37-550Fmp [facility] Comment on above:Performed By: #### LIPA, CMP, NONI #### [facility] [address] [place] [address] Dr. Delonte SparrowCO2 [Moles/Vol]29.2 mmol/PFxjbjg03.0-32.0The [facility] Comment on above:Performed By: #### LIPA, CMP, NONI #### [facility] [address] [address] [address] Delonte SparrowCreatinine [Mass/Vol]0.81 mg/dLNormal0.55-1.02The [facility] CenterComment on above:Performed By: #### LIPA, CMP, NONI #### [facility] [address] [place] [address] Dr. Delonte CárdenasGFR-AF CHILEAN>60Normal>=60The [facility] Health CenterComment on above:Performed By: #### LIPA, CMP, NONI #### [facility] [address] [place] [address] Dr. Delonte CárdenasGFR-NON AF CHILEAN>60Normal>=60The [facility] Health CenterComment on above:Performed By: #### LIPA, CMP, NONI #### [facility] [address] [place] [address] Dr. Delonte SparrowGlobulin (S) [Mass/Vol]3.7 g/dLNormalThe Sigel HospitalComment on above:Performed By: #### LIPA, CMP, NONI #### [facility] [address] [address] [address] Delonte SparrowGlucose [Mass/Vol]103 mg/lVNoswxk53-208UrmMercy Health Comment on above:Performed By: #### LIPEverett, CMP, NONI #### [facility] [address] [address] [address] Delonte SparrowPotassium [Moles/Vol]3.9 mmol/LNormal3.5-5.1The [facility] Comment on above:Performed By: #### LIPEverett CMP, NONI #### [facility] [address] [place] [address] Dr. Delonte SparrowProtein [Mass/Vol]7.3 g/dLNormal6.4-8.2The [facility] Comment on above:Performed By: #### LIPEverett CMP, NONI #### [facility] [address] [place] [address] Dr. Delonte SparrowSodium [Moles/Vol]141 mmol/HTnwfbr200-001OedMercy Health Comment on above:Performed By: #### LIPEverett CMP, NONI #### [facility] [address] [place] [address] Dr. Delonte SparrowUrea nitrogen [Mass/Vol]16.0 mg/dLNormal7.0-18.0Mercy HealthComment on above:Performed By: #### LIPEverett, CMP, NONI #### [facility] [address] [place] [address] Dr. Delonte SparrowUrea nitrogen/Creatinine [Mass ratio]19.8 mg/mgNoAvita Health System Galion HospitalComment on above:Performed By: #### LIPA, CMP, NONI #### [facility] [address] [place] [address] Dr. Delonte MendezD-19 Positive/Negativeon 38-15-8783VALV-CoV-2 (COVID-19) N gene WES+probe Ql (Resp)NegativeNegativeGalion Community Hospital CtrComment on above:Testing for SARS-CoV-2 by RT-PCRThis test was developed and its performance characteristics determined by [employer] (BD) and validated at the [facility]. This test has not been FDA cleared [...] unless the authorization is terminated or revoked sooner.Laboratory - Microbiology and Antimicrobial susceptibilityon 53-82-1722FFJM-CoV-2 (COVID-19) RNA WES+probe Ql (Unsp spec)N/[facility] CtrCytologyon 81-73-7959Tscjkxap(NOTE) [id number] [facility] ANATOMIC PATHOLOGY [address] [place] [address]. 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 - Endocervical/transformation zone component present. - Scant cellularity, predominantly inflammatory exudate. Descriptive Diagnosis: Negative for intraepithelial lesion or malignancy. Shift in bruce suggestive of bacterial vaginosis. Director Of Consumer Marketing: HARJIT Valera(ASCP) Electronically Signed Out bessie/04/23/2018NormalMercy Raymond HospitalComment on above:Performed By: #### PPPVP #### [facility] [address] [id number] Biometric Screener: Karthik Lynn MD Vital Signs Date TimeVital SignValuePerforming OypvqaxdbMqdbvkrj71-92-3918 15:29-0400Body emhjhv250.18 cmKayy Madrid MD Work Phone: [phone]09-03-2025 15:29-0400 Body mass index (BMI) [Ratio]35.4 kg/r2CnkjyfdKayy Madrid MD Work Phone: [phone]09-03-2025 15:29-0400 Body .51 kgKayy Madrid MD Work Phone: [phone]09-03-2025 15:29-0400 Diastolic blood nuzkmfhw25 mm[Hg]Kayy Madrid MD Work Phone: [phone]09-03-2025 15:29-0400 Heart rate59 /Al Madrid MD Work Phone: [phone]09-03-2025 15:29-0400 SaO2% (BldA) [Mass fraction]96 %Kayy Madrid MD Work Phone: [phone]09-03-2025 15:29-0400 Systolic blood omnwlunq774 mm[Hg]Kayy Madrid MD Work Phone: [phone]05-27-2025 10:130400 Body .18 cmTrinity Health [facility]05-27-2025 10:13-0400Body mass index (BMI) [Ratio]35.4 kg/b5PcamewzsdTrinity Health System West Campus05-27-2025 10:130400Body oxpmsn126.51 kgTrinity Health System West Campus05-27-2025 10:130400Diastolic blood yubiqths53 mm[Hg][facility] 07-19-2024 10:130400Heart rate65 /[facility] 07-19-2024 10:13-0400Systolic blood mm[Hg][facility]03-13-2025 14:25-0400Body mass index (BMI) [Ratio]33.52 kg/n0VfmpsWolf Fong MD Work Phone: [facility] CenterVxuejkyqye19-14-8354 14:25-0400Body eccedk20.07 kgWolf Fong MD Work Phone: [facility] CenterMgccwdbyne36-91-0561 14:25-0400Diastolic blood hxwirupg62 mm[Hg]Wolf Fong MD Work Phone: [facility] CenterGydspjaefz47-58-9040 14:25-0400Systolic blood mm[Hg]Wolf Fong MD Work Phone: [facility] CenterSetwrpepou26-39-3888 09:19-0500Body wvvvdu221.9 cmRenny Jeffers MD Work Phone: [facility]11-25-2024 09:19-0500Body mass index (BMI) [Ratio]38.27 kg/m2Renny Jeffers MD Work Phone: [facility]11-25-2024 09:19-0500Body temperature 97.2 [degF]Renny Jeffers MD Work Phone: [facility]11-25-2024 09:19-0500Body bsdqig591.2 kgRenny Jeffers MD Work Phone: [facility]11-25-2024 09:19-0500Diastolic blood njxmtwyh394 mm[Hg]Renny Jeffers MD Work Phone: [facility]11-25-2024 09:19-0500Heart rate68 /min Renny Jeffers MD Work Phone: [facility]11-25-2024 09:19-0500Systolic blood fktfrzce067 mm[Hg]Renny Jeffers MD Work Phone: [facility]09-30-2024 08:11-0400Body xmlmea564.5 kgKristy Evangelista MD Work Phone: [facility]09-30-2024 08:11-0400Diastolic blood xsrgmlha25 mm[Hg]Kristy Evangelista MD Work Phone: [facility]09-30-2024 08:11-0400Heart rate71 /min Kristy Evangelista MD Work Phone: [facility]09-30-2024 08:11-0400Systolic blood sdpnjnmy598 mm[Hg]Kristy Evangelista MD Work Phone: [facility]08-01-2024 09:46-0400Body temperature 98.2 [degF]Lester Harrell DPM Work Phone: [facility] CenterKgjfsfckcc43-84-4383 09:46-0400Diastolic blood oqxhvpzx73 mm[Hg]Lester Harrell DPM Work Phone: [facility] CenterFjkomjwcaf96-97-6389 09:46-0400Heart rate65 /min Lester Harrell DPM Work Phone: [facility] CenterMwgmqnvgvy80-73-3887 09:46-0400Systolic blood kigjksqt226 mm[Hg]Lester Harrell DPM Work Phone: [facility] CenterYgdephpjlo07-09-9806 09:30-0400Body cikduy905.18 Jeffrey Wise Other [employer] Other 08-15-2023 09:30-0400Body mass index (BMI) [Ratio] 34.45 kg/s7Kmhezko Ditty Other [employer] Other 08-15-2023 09:30-0400Body gfujnp61.79 kgCamerobrenda Contrerasy Other [employer] Other 08-15-2023 09:30-0400Diastolic blood bqmksiab24 mm[Hg] Philippe Wise Other [facility] [employer] Other 08-15-2023 09:30-0400Systolic blood atctawtq588 mm[Hg] Philippe Wise Other [employer] Other 07-07-2022 12:00-0400Body .18 cmDavimerced Ly Other [employer] Other 07-07-2022 12:00-0400Body mass index (BMI) [Ratio] 35.55 kg/e7Agrge Hykes Other [employer] Other 07-07-2022 12:00-0400Body iivttm721.97 kgDavimerced Hykes Other [employer] Other 07-07-2022 12:00-0400Diastolic blood mm[Hg] René Ly Other [employer] Other 07-07-2022 12:00-0400Systolic blood wrsykwna485 mm[Hg] René Ly Other [employer] Other Encounters Encounter DateEncounter TypeCare ProviderFacilityStart: 11-16-2024 End: 67-94-3112Mzhudoiva Result EncounterWolf Fong MD Work Phone: noms External Department UnsolicitedStart: 11-16-2024 End: 70-33-0119Rtailwxnl Result EncounterWolf Fong MD Work Phone: noms External Department UnsolicitedStart: 10-26-2024 End: 17-74-5429hyzcjujqhbAzwvzoo M Hoy MD Work Phone: [facility] Work Phone: Start: 10-26-2024 End: 61-62-1291Eancmcr encounter procedureNicole Domenic [facility] Work Phone: Start: 55-06-6257Ibl-patient / Non-visitNicole J [facility] Out[facility] Work Phone: Start: 07-21-2024 End: 59-80-0560Reqicbi encounter procedureKayy Madrid MD Work Phone: [facility] Work Phone: Start: 07-21-2024 End: 72-94-9096zhwanrqbkaNswkhsq M Hoy MD Work Phone: [facility] Work Phone: Start: 07-19-2024 End: 93-58-4851hveazuaumzUlcaakkzfSelect [facility] [place] Work Phone: Start: 07-19-2024 End: 79-04-0324Dletavp encounter procedureKindred Hospital [facility] GroupC[facility] Work Phone: Start: 06-24-2024 End: 12-76-3645vmpmuqyilnTDJAYChildren's Hospital of Columbustart: 05-05-2024 End: 03-32-5737Jbtyscw preventive medicine new patient 40-64yrsWolf Fong MD Work Phone: [facility] OBComment on above:Well woman exam with routine gynecological exam; Cervical cancer screening; Screening for HPV (human papillomavirus)Start: 05-05-2024 End: 95-86-4527Wpuarun encounter Eder Fong MD Work Phone: noGA HealthcareStart: 05-05-2024 End: 60-22-6727mbsstsbniwDJSWB J PRINTYNot AvailableStart: 05-05-2024 End: 00-22-7952Oxsfcs flowsheetWolf Fong MD Work Phone: n[facility] OBStart: 05-05-2024 End: 88-68-8027Lozvdy Duc Fong MD Work Phone: [facility] SWS OBStart: 03-25-2024 End: 56-41-9787uhsgtjaajyYgyshhl HoyFacility: UmuwalkStart: 03-25-2024 End: 41-74-1147Sxkphzf encounter procedureMichael R NILL [phone]-XgxvjWayne Healthcare [facility] Campus [facility] [place] Start: 88-34-9192qsqmfbctdpKcmohak HoyFacility: BellevueStart: 90-70-6767ksasuxiycaNtclhad HoyFacility: RaminkStart: 03-08-2024 End: 39-47-2937ugjwpvjyyaMfhcdi Sikon MD Work Phone: [facility] HospitalComment on above:PCPStart: 02-29-2024 End: 42-69-6345AxwwhjWcgjba Sikon MD Work Phone: [facility] HospitalComment on above:Refill Request Start: 02-28-2024 End: 58-06-3921AfunrsMgvd Lin MD Work Phone: eumatologyComment on above:Refill RequestStart: 02-08-2024 End: 02-57-9893qbecmoxhqvFMCU LINFacility:Peoples HospitalComment on above:Arthralgia, unspecified joint (Primary Dx); Enthesitis; Encounter for long-term (current) use of medications; Carpal tunnel syndrome of left wrist; Positive KAELA (antinuclear antibody)Start: 02-08-2024 End: 19-77-1844Olevkxqxhdak consultation with Selam Jeffers MD Work Phone: RheumatologyStart: 01-28-2024 End: 25-58-2888jzcahtzmlbLvds Lin MD Work Phone: RheumatologyComment on above:XrausStart: 01-20-2024 End: 11-99-4874EV Get Medical AdviceRenny Jeffers MD Work Phone: RheumatologyComment on above:Xrays orderStart: 01-18-2024 End: 99-14-9484inmkydmontAQMQ LINFacility:[facility] Limatart: 01-18-2024 End: 10-43-6923Wwoaip outpatient new 60 minutesRenny Jeffers MD Work Phone: eumatologyComment on above:Encounter for long-term (current) use of medications (Primary Dx); Crohn's disease of large intestine without complication (HCC); Arthritis; Enthesitis; Arthralgia, unspecified jointStart: 01-18-2024 End: 94-76-7956lddszkkdyoHRSXYD SIKONFacility:[facility] Limatart: 01-18-2024 End: 02-52-0325Bjymduczhy hospital visit by Christiano Donovan A21 1 RadiologyComment on above:Symptomatic menopausal or female climacteric states [N95.1]Start: 12-02-2023 End: 90-63-7752ospcqskloqNPKESIN [facility] Hospitaltart: 11-23-2023 End: 80-92-7012tdryvqgnvyZAESTP SIKONFacility:[facility] Limatart: 11-23-2023 End: 24-46-3702Tlutssn encounter procedureKristy Evangelista MD Work Phone: [facility] HospitalComment on above:Symptomatic menopausal or female climacteric states (Primary Dx); Paroxysmal atrial fibrillation (HCC); Gastroesophageal reflux disease without esophagitis; Migraine with aura and with status migrainosus, not intractable; Crohn's disease of large intestine without complication (HCC); ArthritisStart: 09-24-2023 End: 11-07-4648Isergv outpatient visit 15 Renan Harrell DPM Work Phone: [facility] SWS PODIATRYComment on above:Pain of right foot (Primary Dx); Pain of right heel; Pain of left foot; Pain of left heel; Bilateral plantar fasciitisStart: 09-24-2023 End: 60-40-2376ipslfgdxoyQOIJBX R Kaelyn AvailableStart: 07-01-2023 End: 77-53-1831pstsggmfbrBHPYR [facility] Hospitaltart: 10-07-2022 End: 97-32-3894qqkrtpzmfkFkffggm Ditty Other [employer] Other Start: 02-88-2324Cxbixkm encounter procedureCamerobrenda EstermaldonadoyFPG GastroenterologyStart: 95-99-1073zvmtewxrikSH KAYY HOY .Facility:H1 Start: 06-12-2022 End: 70-03-6702bllzsiwfaeVI KAYY HOY .Facility:I9Pmhzz: 08-29-2021 End: 42-96-8541pxdxvjibfxBrcku Aliyah Other [facility] [employer] Other Start: 19-52-9553Nczxxq outpatient visit 25 minutes René LebronG GastroenterologyStart: 08-21-2021 End: 72-81-0726nktrelxeggNK KAYY HOY .Facility:T0Ywqxn: 06-20-2020 End: 52-15-2400Awazkdv encounter procedureM Kayy Madrid Work Phone: -Pre-Surgical TestingStart: 60-15-6473Kgapolwwq for gynecological examination (general) (routine) without abnormal findingsWECoshocton Regional Medical Centertart: 04-12-2018 End: 19-95-0164Ncvilvt encounter procedureWEAMADOR Gonzalez [facility] Procedures DateProcedureProcedure DetailPerforming ClinicianStart: 51-40-6396ZA TOMOSYNTHESIS SCREENING Mode Fong MD Work Phone: start: 41-75-8772OcptzxktybkKkjfr Printy MD Work Phone: start: 31-31-3567Ljkmmu abdominal X-rayKayy Madrid MD Work Phone: Start: 62-79-7782Dzqzr foot complete minimum 3 views Lester Harrell DPM Work Phone: start: 25-62-9636Hdplq foot complete minimum 3 views Lester Galina Harrell DPM Work Phone: start: 75-48-2056Wrx bone density study 1/> sites axial Yessenia Evangelista MD Work Phone: Start: 08-47-1352Zbxjzx pap by gisela CRUZSStart: 45-55-4379Wmgzzhwtdto observation [Identifier] in Cervix by Cyto stainEujose armando Harrell DPM Work Phone: colonoscopyMichael NILL EsophagogastroduodenoscopyMichael NILL HysterectomyMichael NILL Plan of Treatment DateCare ActivityDetailAuthorStart: 04-85-2547Mcjhbduuw for malignant neoplasm of cervixNOMS HealthcareStart: 12-24-6173Pqjzihtb ScreeningDiabetes Screening [facility] Centertart: 70-29-2534Zimunuvmq vaccinationInfluenza Vaccine (#1)NOM[facility] HealthcareStart: 05-05-2024 End: 25-11-0265Udfovcn encounter yqsdyiapt65/13/2025 2:15 PM EDT [facility] [address] [place] [address] Wolf Fong MD [address] [place] [address] Well woman exam with routine gynecological exam; Cervical cancer screening; Screening for HPV (human papillomavirus); Other screening mammogramNOMS SWS OBComment on above:Well woman exam with routine gynecological exam; Cervical cancer screening; Screening for HPV (human papillomavirus); Other screening mammogramStart: 03-14-2024 End: 06-28-8521Dkonykg encounter nwajmycur36/20/2025 11:20 AM EST Office Visit [facility] [address] [place] [address] Kristy Evangelista MD [address] [place] [address] 3 MONTH FOLLOW UPSt. Gabriel HospitalComment on above:3 MONTH FOLLOW UP Start: 02-08-2024 End: 49-39-7225jzxmtozrps00/16/2024 9:30 AM [facility] Rheumatology [address] [address] Renny Jeffers MD [address] [address] 3w f/u - discuss resultsRheumatologyComment on above:3w f/u - discuss resultsStart: 01-18-2024 End: 07-09-4899UAFQO TB SCREENCleUniversity Hospitals Conneaut Medical CenterComment on above:Expected: 01/18/2024, Expires: 04/18/2024Start: 01-18-2024 End: 95-39-8125Btndru citrullinated peptide IgG Ab [Units/volume] in Serum or PlasmaProvidence HospitalComment on above:Expected: 01/18/2024, Expires: 04/18/2024 Start: 01-18-2024 End: 89-54-6556HPP double strand Ab [Units/volume] in Serum by Immunoassay [facility] HospitalComment on above:Expected: 01/18/2024, Expires: 04/18/2024Start: 01-18-2024 End: 31-25-5520Ncqjepvvqnp nuclear Ab panel - SerumProvidence HospitalComment on above:Expected: 01/18/2024, Expires: 04/18/2024Start: 01-18-2024 End: 89-45-8741Tehppwt encounter procedureRadiologyComment on above:DXA-AXIAL SKELETON, Symptomatic menopausal or female climacteric states [N95.1], BD DXA TRABECULAR BONE SCORE (TBS),.Symptomatic menopausal or female climacteric states [N95.1]Arthritis [M19.90]Start: 86-08-2343Ytjon-19 Vaccine ( season) Covid-19 Vaccine ( season)[facility]ertart: 09-77-6018Wppsdtcgk vaccinationInfluenza Vaccine (#1)[facility] Centertart: 82-59-1068Cxmlitaaz for malignant neoplasm of cervixBarney Children's Medical Centertart: 15-60-1472Ccfhvmuuzdrq Vaccine: 50+ (1 of 1 - PCV)Pneumococcal Vaccine: 50+ (1 of 1 - PCV)[facility] Centertart: 05-67-0729Nmhazpwk Vaccine (1 of 2)Shingrix Vaccine (1 of 2) [facility] Centertart: 19-00-8688Edgablpy ScreeningDiabetes ScreeningBarney Children's Medical Centertart: 64-52-1721Cmtxd panelLipid ScreeningBarney Children's Medical Centertart: 76-43-0980Hyixkqwse for malignant neoplasm of colonBarney Children's Medical Centertart: 27-25-2992Welqlnydq for malignant neoplasm of breastBarney Children's Medical Centertart: 98-21-6370Igldgiaom for malignant neoplasm of cervixHPV/CotestNOMS [facility] Start: 60-11-5951Kcumenanu B Vaccine (1 of 3 - 19+ 3-dose series)Hepatitis B Vaccine (1 of 3 - 19+ 3-dose series)[facility] Centertart: 44-78-3313Ivsky microalbumin profileDTaP,Tdap,Td Vaccine (1 - Tdap)[facility] Centertart: 00-09-1241Rmlmrkl ScreeningAnxiety ScreeningBarney Children's Medical Centertart: 01-17-1984 Depression ScreeningDepression ScreeningBarney Children's Medical Centertart: 01-17-1984 Hepatitis C screeningHepatitis C ScreeningBarney Children's Medical Centertart: 24-89-9784BBU screeningHIV ScreeningBarney Children's Medical Centertart: 93-29-4626Ucwgbzhlv for malignant neoplasm of colonNOMS [facility] End: 83-61-7548YG DXA TRABECULAR BONE SCORE (TBS)BD DXA TRABECULAR BONE SCORE (TBS) Radiology Routine Symptomatic menopausal or female climacteric states 1 Occurrences starting 11/23/2023 until 12/22/2024leveland ClinicComment on above:1 Occurrences starting 11/23/2023 until 12/22/2024 End: 21-82-8884DHS Skeletal system.axial Views for bone densityDXA-AXIAL SKELETON Radiology Routine Symptomatic menopausal or female climacteric states 1 Occurrences starting 11/23/2023 until [facility] Work Phone: Comment on above:1 Occurrences starting 11/23/2023 until 12/22/2024IGP, APT HPV,RFX 16/18,45IGP, APT HPV,RFX 16/18,45 Lab Routine Cervical cancer screening Screening for HPV (human papillomavirus) Ordered: 05/05/2024[facility] Work Phone: comment on above:Ordered: 05/05/2024Supine abdominal X-rayTr[facility] End: 88-02-4464RR Hand - bilateral PA and LateralXR HAND 2V PA/LAT BILATERAL Radiology Routine Arthritis 1 Occurrences starting 01/18/2024 until 02/16/2025 [facility] HospitalComment on above:1 Occurrences starting 01/18/2024 until 02/16/2025 End: 13-58-2095US Sacroiliac Joint ViewsXR SACROILIAC JOINTS 2V AP PELVIS/FERGUESON Radiology Routine Arthritis 1 Occurrences starting 01/18/2024 until 02/16/2025[facility] Work Phone: Comment on above:1 Occurrences starting 01/18/2024 until 02/16/2025 End: 60-06-5690WV Shoulder - left 2 ViewsXR SHOULDER LIMITED 2V AP/TRUE AP LEFT Radiology Routine Arthritis 1 Occurrences starting 01/18/2024 until 02/16/2025 [facility] HospitalComment on above:1 Occurrences starting 01/18/2024 until 02/16/2025 End: 78-69-6802YG Shoulder - right 2 ViewsXR SHOULDER UFGUAOP8K AP/TRUE AP RIGHT Radiology Routine Arthritis 1 Occurrences starting 01/18/2024 until 02/16/2025 [facility] HospitalComment on above:1 Occurrences starting 01/18/2024 until 02/16/2025 Immunizations Immunization DateImmunizationNotesCare NsdikmjqAhifgqqy92-91-4234JMWX-YfT-2 (COVID-19) mRNA-1273 vaccineMichael NILL [phone]-YgqmbWayne Healthcare Main Campus General Surgery [place] 54-90-9387EYZJ-CoV-2 (COVID-19) mRNA-9564 vaccineMichael NILL [phone]-TnfegWayne Healthcare Main Campus General Surgery [place] 68-19-4889mbxqlheaw virus vaccine, unspecified formulationKristy Evangelista MD Work Phone: [facility] Payers DatePayer CategoryPayerPolicy [id number] Health InsuranceAETNA AETNA POS [id number] 2017-Present [phone] [address] [place] [address] [id number] Care HMO (unspecified)[employer] Member Subscriber Plan / Payer (Effective 2003- Present) Name: sEsie Erickson Relation to Subscriber: Spouse Name: Bear Erickson Date of : 1964 (Home) Address: [address] [place] [id number] Payer ID: 1 (NAIC) Type: HMO Address: [address] [place] [id number] [id number] 2..1.271221.3.57[id number] ..1.527524.3.57[id number] 2..1.524355.3.57[id number] 2.16.840.1.676175.3.57[id number] 2.16.840.1.300725.3.57[id number] 2.16.840.1.458874.3.57[id number] 2..840.1.823409.3.57[id number] 2.16.840.1.739319.3.579.2.527494-90-5605[facility] [id number] [id number] 2.16.840.1.210122.3.579.2.531 Social History DateTypeDetailFacilityStart: 11-03-2018 End: 13-10-2293Hnlenif smoking status NHISEx-smoker (finding)[facility]: 36-89-2373Hgo [facility]: 11-23-2023 End: 78-19-5683Hpp [facility]: 30-61-3967Twagkmc smoking status NHISNever smoked tobaccoBarney Children's Medical Centertart: 09-24-2023 End: 06-28-6976Fwjqlxc use and exposureSmokeless tobacco non-userBarney Children's Medical Centertart: 11-23-2023 End: 48-98-8622Hmmoaliez beverage intakeCurrent drinker of alcohol (finding) [facility]: 11-23-2023 End: 11-91-9696Niopihf of Social functionBarney Children's Medical Centertart: 11-23-2023 Alcohol CommentoccBarney Children's Medical Centertart: 86-81-6316Vpl assigned at birthNot on fileProvidence HospitalAdcibola general hospital Depression Scre[facility] History of tobacco useCurrent smokerNOMS HealthcareHistory of tobacco use Cigarette SmokerNOGA HealthcareStart: 48-08-8852Gztwwby Commentwine or beer - a couple per monthNOGA HealthcareStart: 07-19-2024 End: 89-74-2511JooIribyv (finding)[facility] Goals DatePatient GoalDesired Activity/State Clinical Notes 07-24-2020 to 07-19-2024 Note Date & RabuGhdpIclbgimm23-70-8624 Evaluation note* Diagnosis Onset Date Resolution Status Admit Date IBS (irritable bowel syndrome) acuteMay 2024 10:05am [facility] Work Phone: 1(281) 617-668205-02-2025 NoteUT Cardiology - [facility] Subjective Essie Erickson is a 59 y.o. year old female [...] sleep apnea 07/03/2023 CARLITO=9.5 events/hour; Leroy SpO2=84%; Zygbrf=111.0 lbs; BMI=35.7 kg/m2, Home Sleep Apnea Testing on 07/01/2023 at [facility] Past Surgical History: Procedure Laterality Date [...] Obesity, BMI 35.4 kg/m??? (more content not included)...[facility]03-13-2025 History of Present illness Narrative* Wolf Fong MD - 05/05/2024 2:15 PM EDT Images from the original note were not included. Wolf Fong MD Obstetrics and Gynecology Patient: Essie Erickson, : 1965 (59 y.o.) DOS 05/05/24 Exam [...] Review Audit Reviewed by Vonnie Gillespie MA (Stocklayer) on 05/05/24 at 1429 Medication Order Taking? Sig Documenting Provider Last Dose Status aspirin 81 MG EC tablet [id number] Take 81 mg by mouth Daily Lester Harrell DPM Active celecoxib (CeleBREX) 100 MG capsule [id number] Take 100 mg by mouth in the morning and 100 mg before bedtime. Wolf Fong MD Active desvenlafaxine (Pristiq) 100 MG 24 hr tablet [id number] Take 100 mg by mouth Daily Lester Harrell DPM Active Discontinued 05/05/24 1428 dilTIAZem CD (Cardizem CD) 240 MG 24 hr capsule [id number] Take 240 mg by mouth Daily Wolf Fong MD Active Discontinued 05/05/24 1428 Multiple Vitamins-Minerals (CENTRUM SILVER PO) [id number] Take 1 tablet by mouth Daily Lester Harrell DPM Active pantoprazole (ProtoNix) 40 MG EC tablet [id number] Take 40 mg by mouth in the [...] Print requisition? Answer: Yes documented in this encounterMoberly Regional Medical CenterRaduqamceq82-39-3091 Telephone encounter Note* Telephone Encounter - Annika Cruz - 02/29/2024 3:46 PM EST 11/23/2023 03/14/2024 Patient phones requesting refills as follows: Requested Prescriptions Pending Prescriptions Disp Refills estradiol (VIVELLE-DOT) 0.0375 mg/24 hr patch 30 Patch 1 Sig: Apply 1 Patch as directed two times a week. Please review and advise. [facility]01-06-2025 Miscellaneous Notes* Telephone Encounter - Annika Cruz - 02/29/2024 3:46 PM EST 11/23/2023 03/14/2024 Patient phones requesting refills as follows: Requested Prescriptions Pending Prescriptions Disp Refills estradiol (VIVELLE-DOT) 0.0375 mg/24 hr patch 30 Patch 1 Sig: Apply 1 Patch as directed two times a week. Please review and advise. documented in this encounterProvidence Hospital01-06-2025 Telephone encounter Note * Telephone Encounter - Kori Banks RN - 02/29/2024 10:47 AM EST Images from the original note were not included. Requesting refill on Celebrex. Script pended. Thank you. Most recent Rheumatology visit: 02/08/2024 (with Renny Jeffers) Last Bone Density on file: 01/18/2024 Rheumatology Care Team: None on file Recent Office Visits - This Specialty 02/08/2024 Arthralgia, unspecified joint Rheumatology Renny Jeffers MD 01/18/2024 Encounter for long-term (current) use of medications Rheumatology Renny Jeffers MD Upcoming Rheumatology Appointments - Next 365 [...] Open Future (Single Instance) Lab Orders None [facility]01-06-2025 Miscellaneous Notes* Telephone Encounter - Kori Banks RN - 02/29/2024 10:47 AM EST Images from the original note were not included. Requesting refill on Celebrex. Script pended. Thank you. Most recent Rheumatology visit: 02/08/2024 (with Renny Jeffers) Last Bone Density on file: 01/18/2024 Rheumatology Care Team: None on file Recent Office Visits - This Specialty 02/08/2024 Arthralgia, unspecified joint Rheumatology Renny Jeffers MD 01/18/2024 Encounter for long-term (current) use of medications Rheumatology Renny Jeffers MD Upcoming Rheumatology Appointments - Next 365 [...] Instance) Lab Orders None documented in this encounterProvidence Hospital12-16-2024 History of Present illness Narrative* Renny Jeffers MD - 02/08/2024 9:30 AM EST Images from the original note were not included. VIRTUAL VISIT PROGRESS NOTE This is a virtual visit using [employer] Zoom Video Visit. It required patient- provider interaction for the medical decision making as documented below. I have communicated my name and active licensure. The patient's identity and physical location wereverified at the time of this visit. Either the patient or their legal termite control representative has been informed of the risks and benefits of -- and alternatives to -- treatment through a remote evaluation andconsents to proceed with the evaluation remotely. Essie Erickson is a 59 year old female seen [...] AI <0.2 Sm Antibody Negative Negative Ribosomal RANCH HAND Ab <1.0 AI <0.2 Ribosomal RANCH HAND Qualitative Negative Negative Chromatin Ab <1.0 AI <0.2 Chromatin Ab Qual Negative Negative SSA Antibody Qual Negative Negative Anti-SSA <1.0 AI <0.2 Anti-SSB <1.0 AI <0.2 RANCH HAND Antibody QUAL Negative Negative Scleroderma Ab Qual Negative Negative Scl-70 Abs, EIA <1.0 AI <0.2 Centromere Ab <1.0 AI <0.2 CENTROMERE AB QUAL Negative Negative RACHEL-1 ANTIBODY, IGG <1.0 AI <0.2 RACHEL 1 ANTIBODY QUAL Negative Negative Latest Ref [...] to PT: she will get this at [facility] - If not improved, then CSI [...] the date of the service which included axry-ol-rwhe patient care, completing clinical documentation, and communicating results to the patient/family/caregiver Renny Jeffers MD documented in this encounterProvidence Hospital12-16-2024 NoteHNO ID: [id number] Author: RENNY JEFFERS MD Service: ? Author Type: Physician Type: Progress Notes Filed: 02/08/2024 09:59 Note Text: VIRTUAL VISIT PROGRESS NOTE This is a virtual visit using [employer] Zoom Video Visit. It required patient-provider interaction for the medical decision making as documented below. I have communicated my name and active licensure. The patient's identity and physical location were verified at the time of this visit. Either the patient or their legal termite control representative has been informed of the risks and benefits of -- and alternatives to -- treatment through a remote evaluation and consents to proceed with the evaluation remotely. Essie Erickson is a 59 year old female seen [...] No data to dis (more content not included)...[facility] 01-20-2024 Telephone encounter Note* Telephone Encounter - Kori Banks RN - 01/20/2024 11:37 AM EST Spoke with pt and confirmed she would like x-ray orders faxed to [address], [place] [address]. Called [facility] outpatient radiology dept and obtained fax number of [phone]. X-ray orders from 01/18/2024 faxed with confirmation of fax receipt received. Advised pt to please let us know once x-rays are completed, so that we can ensure that we received the results. Pt verbalized understanding. [facility]11-27-2024 Miscellaneous Notes* Telephone Encounter - Kori Banks RN - 01/20/2024 11:37 AM EST Spoke with pt and confirmed she would like x-ray orders faxed to [address], [place] [address]. Called [facility] outpatient radiology dept and obtained fax number of [phone]. X-ray orders from 01/18/2024 faxed with confirmation of fax receipt received. Advised pt to please let us know once x-rays are completed, so that we can ensure that we received the results. Pt verbalized understanding. documented in this encounterProvidence Hospital11-25-2024 History of Present illness Narrative* Renny Jeffers MD - 01/18/2024 10:00 AM EST Images from the original note were not included. Rheumatology CONSULTATION Date of Service: 01/18/2024 Patient: Essie Erickson Primary Care Physician: Kayy Madrid ([place], [place]) Last Rheumatology visit: [facility] Referring Provider: Kristy Evangelista [address] [facility] [address] Essie Erickson is here today at request of Dr. Evangelista specifically for consultation of my opinion in regards to the chief complaint listed below. Correspondence will be shared today via the [employer] electronic health record or through regular mail, where applicable. History of Present Illness Essie Erickson is a 59 year old White female [...] XR HAND 2V PA/LAT BILATERAL XR SHOULDER [id number] AP/TRUE AP RIGHT XR SHOULDER LIMITED 2V [...] which included preparing to see the patient, vlkq-ai-ecyd patient care, completing clinical documentation, obtaining and/or reviewing separately obtained history, performing a medically appropriate examination, counseling and educating the pat ient/family/caregiver, ordering medications, tests, or procedures, and communicating results to thepatient/family/caregiver. Renny Jeffers MD PhD Rheumatology documented in this encounterProvidence Hospital11-25-2024 NoteHNO ID: [id number] Author: RENNY JEFFERS MD Service: ? Author Type: Physician Type: Progress Notes Filed: 01/18/2024 18:39 Note Text: Rheumatology CONSULTATION Date of Service: 01/18/2024 Patient: Essie Erickson Primary Care Physician: Kayy Madrid ([place], [place]) Last Rheumatology visit: None [facility] Referring Provider: Kristy Evangelista [address] [facility] [address] Essie Erickson is here today at request of Dr. Evangelista specifically for consultation of my opinion in regards to the chief complaint listed below. Correspondence will be shared today via the [employer] electronic health record or through regular mail, where applicable. History of Present Illness Essie Erickson is a 59 year old White female [...] HERNANDEZ with going u (more content not included)...[facility] 01-18-2024 History of Present illness Narrative* Florencia Calderon RT(Galina) - 01/18/2024 8:55 AM EST Radiology Service Progress Note PATIENT NAME: Essie Erickson DATE OF SERVICE: January 18, 2024 TIME: [...] PATIENT PRESENTS WITH AN IMPLANTABLE OR ATTACHED COGENERATION OPERATOR: No RADIOLOGY DEPARTMENT: Bone Density PERIPHERAL IV DATA: Not applicable SIGNED BY: AUBREY Christianson) January 18, 2024 8:58 AM documented in this encounterProvidence Hospital11-25-2024 NoteHNO ID: [id number] Author: FLORENCIA CALDERON RT (R) Service: ? Author Type: Technologist Type: Progress Notes Filed: 01/18/2024 08:58 Note Text: Radiology Service Progress Note PATIENT NAME: Essie Erickson DATE OF SERVICE: January 18, 2024 TIME: [...] PATIENT PRESENTS WITH AN IMPLANTABLE OR ATTACHED COGENERATION OPERATOR: No RADIOLOGY DEPARTMENT: Bone Density PERIPHERAL IV DATA: Not applicable SIGNED BY: AUBREY Christianson) January 18, 2024 8:58 [facility]10-09-2024 NoteCardiovascular Medicine [facility] SUBJECTIVE Chief Complaint Patient presents with Atrial Fibrillation Essie Erickson is a 58 y.o. female here for [...] had follow up for titration study. Seeing RAMPMAN for night sweats, achy joints, issues with [...] sleep apnea 07/03/2023 CARLITO=9.5 events/hour; Leroy SpO2=84%; Ozejam=920.0 lbs; BMI=35.7 kg/m2, Home Sleep Apnea Testing on 07/01/2023 at [facility] Family History Problem Relation Name Age [...] tachycardia) (CMS/HCC) Elevated blood pressure reading PAF -[id number] = 1 (female) -Dr. Ramirez noted a [...] (around 06/01/2024). Susanne Paz NP [facility] Note Patient here for 6 mo [...] pain. All other systems reviewed and are negative.[facility] 11-23-2023 Instructions* Patient Instructions* Kristy Evangelista [...] your usual activities immediately. 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 BONE: Denies FMH OP/fx. No PMH OP/non [...] thought she had URI bchusband and grandgtr eliquis switched to asa after wearing heart monitor [...] DISEASE Kristy Evangelista M.D.,F.A.C.P. documented in this encounterProvidence Hospital09-30-2024 NoteHNO ID: [id number] Author: KRISTY EVANGELISTA MD Service: ? 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 Last mammo 4-6 wks at [facility]. BONE: Denies FMH OP/fx. No PMH OP/non [...] atrial fibrillation (HC (more content not included)... [facility]08-01-2024 History of Present illness Narrative* Lester Harrell, DPM - 09/24/2023 9:30 AM EDT Reason [...] with 0 degrees dorsiflexion. SHOE GEAR EVALUATION: [employer] athletic shoes. Imaging: Foot X-ray: 09-24-2023: Right [...] voiced understanding. OTC insoles: Patient was shown [employer] Professional Insoles to wear in All shoes [...] 2-3 weeks for recheck. documented in this encounterMoberly Regional Medical CenterAictyqvsqd58-37-1265 NoteEpworth Sleepiness Scale Please rate the following [...] sleep... Acting out your dreams... Difficulty ambulating... Incontinence...[facility]05-08-2024 NotePt given verbal and written instructions and demo of HSAT device. Pt to return unit to registration 07/02 Quality of life Answer each question by shading in the diomede completely. Choose only one answer for each [...] have drawn a scale on which to amor your overall rating of your health. 0 represents your health at its worst, 100 represents your health at its best. Please place an X on the scale to show how good or bad your health is today. 5 10 15 20 25 30 35 40 45 50 55 60 65 70 75 80 85 90 95 100 [facility]08-15-2023 Evaluation note* Encounter Date Diagnosis Assessment Notes Treatment Notes Treatment Clinical Notes Sep, GERD without esophagitis (ICD-10 - K21.9) Sep,Irritable bowel syndrome with diarrhea (ICD-10 - K58.0) Sep,OtherPatient still having diarrhea and cramping in the lower abd area. Patient reports having these episodes at least one time weekly. Patient can restart dicyclomine 20mg TID PRN. [employer] Other 07-07-2022 Evaluation note* Encounter Date Diagnosis Assessment Notes Treatment Notes Treatment Clinical Notes Aug, Crohns disease (ICD-10 - K50.90) Aug,Viral gastroenteritis (ICD-10 - A08.4) Continue prednisone as prescribed by PCP Start Cipro 500mg bid for 7 days Patient to call when she finished prednisone and cipro if symptoms do not improve. Follow up in 4 weeks. [employer] Other 06-01-2021 History general Narrative - Reported* Type Description Date Medical History Crohns disease Surgical HistoryC section X4Kyydpqsd Hxgoiitwmfdidytoisy74/2021 [employer] Other Evaluation + Plan note No data available for this section [facility] [place] Evaluation noteNo Assessments Information Available [facility] Diagnosis Symptomatic menopausal or [...] unspecified, site unspecified documented in this encounter [facility]* Diagnosis Encounter for long-term (current) use of medications- Primary Encounter for long-term (current) use of other medications Crohn's disease of large intestine without complication (HCC) Regional enteritis of large intestine Arthritis Arthropathy, unspecified, site unspecified Enthesitis Enthesopathy of unspecified site Arthralgia, unspecified joint documented in this encounter [facility] HospitalEvalubeebe healthcare note* Diagnosis Symptomatic menopausal or female climacteric states documented in this encounter [facility] note* Diagnosis Arthralgia, unspecified joint- Primary Enthesitis Enthesopathy of unspecified site Encounter for long-term (current) use of medications Encounter for long-term (current) use of other medications Carpal tunnel syndrome of left wrist Carpal tunnel syndrome Positive KAELA (antinuclear antibody) Other and unspecified nonspecific immunological findings documented in this encounter [facility] note* Diagnosis Pain of right foot- Primary Pain of right heel Pain of left foot Pain of left heel Bilateral plantar fasciitis documented in this encounter [facility] CenterEvalubeebe healthcare note* Diagnosis Well woman exam with routine gynecological exam Routine gynecological examination Cervical cancer screening Screening for malignant neoplasm of the cervix Screening for HPV (human papillomavirus) Special screening examination for human papillomavirus (HPV) documented in this encounter [facility] [place] noteNo assessment information availableParkview Health Bryan Hospital Work Phone: Hospital Discharge instructions No data available for this section [facility] [place] Progress note No data available for this section [facility] [place] Reason for referral (narrative)* Diagnostic Procedure Only (Routine) - ClosedSpecialtyDiagnoses / ProceduresReferred By Contact Referred To ContactXR IMAGING Diagnoses Symptomatic menopausal or female climacteric states Procedures DXA-AXIAL SKELETON DXA BONE DENSITY STUDY 1/> SITES AXIAL Kristy Jacobson MD [address] [place] [address] Imaging [place] [address] Referral IDStatusReasonStart DateExpiration DateVisits RequestedVisits [id number] Auto-Generated Referral [facility] for referral (narrative)No reason for referral information availableParkview Health Bryan Hospital Work Phone: Reason for visit Narrative* Diagnostic Procedure Only (Routine) - ClosedSpecialtyDiagnoses / ProceduresReferred By ContactReferred To ContactXR IMAGING Diagnoses Symptomatic menopausal or female climacteric states Procedures DXA-AXIAL SKELETON DXA BONE DENSITY STUDY 1/> SITES AXIAL Kristy Jacobson MD [address] [place] [address] Xr Imaging [place] [address] Referral IDStatusReasonStart DateExpiration DateVisits RequestedVisits [id number] Auto-Generated Referral [facility] Summary Purpose Family History Relationship Condition Age at Onset Recorded Date/T liza father Malignant neoplasm Unknown Not SpecifiedChronic obstructive pulmonary diseaseUnknownsisterMalignant neoplasm of tongueUnknown Relationship Condition Age at Onset Recorded Date/T liza father Malignant neoplasm Unknown motherChronic obstructive pulmonary diseaseUnknownsisterMalignant neoplasm of tongueUnknownfatherDeceasedUnknownmotherDeceasedUnknown Advance Directives Advance Directive Response Recorded Date/ [...] July 19, 2024 10:05am Reason for Referral SpecialtyDiagnoses / ProceduresReferred By ContactReferred To [facility] Diagnoses Arthralgia, unspecified joint Procedures CONSULT TO PHYSICAL THERAPY PHYSICAL THERAPY EVALUATION HIGH COMPLEX 45 MINS Renny Jeffers MD [address] [address] [facility] [address] [address] Referral IDStatusReasonStart DateExpiration DateVisits RequestedVisits [id number] Review Auto-Generated Referral [id number] / ProceduresReferred By ContactReferred To ContactXR IMAGING Diagnoses Arthritis Procedures XR SHOULDER LIMITED 2V AP/TRUE AP LEFT RADEX SHOULDER COMPLETE MINIMUM 2 VIEWS Renny Jeffers MD [address] [place] [address] Xr Imaging [place] [address] Referral IDStatusReasonStart DateExpiration DateVisits RequestedVisits [id number] Request Auto-Generated Referral [id number] / ProceduresReferred By ContactReferred To ContactXR IMAGING Diagnoses Arthritis Procedures XR SHOULDER [id number] AP/TRUE AP RIGHT RADEX SHOULDER COMPLETE MINIMUM 2 VIEWS Renny Jeffers MD [address] [place] [address] Xr Imaging [place] [address] Referral IDStatusReasonStart DateExpiration DateVisits RequestedVisits [id number] Request Auto-Generated Referral [id number] / ProceduresReferred By ContactReferred To ContactXR IMAGING Diagnoses Arthritis Procedures XR HAND 2V PA/LAT BILATERAL RADEX HAND 2 VIEWS Renny Jeffers MD [address] [place] [address] Xr Imaging [place] [address] Referral IDStatusReasonStart DateExpiration DateVisits RequestedVisits [id number] Request Auto-Generated Referral [id number] / ProceduresReferred By ContactReferred To ContactXR IMAGING Diagnoses Arthritis Procedures XR SACROILIAC JOINTS 2V AP PELVIS/FERGUESON RADIOLOGIC EXAMINATION SACROILIAC JNTS <3 VIEWS Renny Jeffers MD [address] [place] [address] Xr Imaging [place] [address] Referral IDStatusReasonStart DateExpiration DateVisits RequestedVisits [id number] Request Auto-Generated Referral [id number] / ProceduresReferred By ContactReferred To ContactRheumatology Diagnoses Crohn's disease of large intestine without complication (HCC) Arthritis Procedures CONSULT TO RHEUM/IMMUN DISEASE OFFICE/OUTPATIENT NEW HIGH MDM 60 MINUTES Kristy Evangelista MD [address] [place] [address] Referral IDStatusReasonStart DateExpiration DateVisits RequestedVisits [id number] PCP Requested Referral [id number] / ProceduresReferred By ContactReferred To ContactXR IMAGING Diagnoses Symptomatic menopausal or female climacteric states Procedures DXA-AXIAL SKELETON DXA BONE DENSITY STUDY SITES AXIAL SKEL Kristy Evangelista MD [address] [place] [address] Xr Imaging [place] [address] Referral IDStatusReasonStart DateExpiration DateVisits RequestedVisits [id number] Auto-Generated Referral Additional Source Comments INFORMATION SOURCE (unrecogn ized section and content) DATE CREATED AUTHOR 04/25/2018 [facility] DATE CREATED AUTHOR AUTHOR'S ORGANIZ ATION 07/07/2022 [facility] DATE CREATED AUTHOR AUTHOR'S ORGANIZ ATION 02/10/2024 [facility] [facility] DATE CREATED AUTHOR AUTHOR'S ORGANIZ ATION 03/28/2024 [facility] DATE CREATED AUTHOR AUTHOR'S ORGANIZ ATION 05/08/2024 [facility] DATE CREATED AUTHOR AUTHOR'S ORGANIZ ATION 06/29/2024 [facility] DATE CREATED AUTHOR AUTHOR'S ORGANIZ ATION 07/23/2024 [facility] REASON FOR VISIT (unrecogniz ed section and content) ReasonCommentsJoint PainSpecialtyDiagnoses / ProceduresReferred By Contact Referred To ContactRheumatology Diagnoses Crohn's disease of large intestine without complication (HCC) Arthritis Procedures CONSULT TO RHEUM/IMMUN DISEASE OFFICE/OUTPATIENT NEW HIGH MDM 60 MINUTES Kristy Evangelista MD [address] [facility] [place] [id number] Referral IDStatusReasonStart DateExpiration DateVisits RequestedVisits [id number] PCP Requested Referral [id number] PainReasonCommentsRefill RequestReason Onset DateCommentsRefill [id number]/29/2024 Source Comments (unrecognize d section and content) In the event this informatio n is protected by the Federal Confidentiality of Alcohol and Drug Abuse Patient Records regulations: The Federal rules restrict any use of the information to criminally investigate or prosecute any alcohol or drug abuse patient.[facility] Hospital[facility] the event this information is protected by the Federal Confidentiality of Alcohol and Drug Abuse Patient Records regulations: The Federal rules restrict any use of the information to criminally investigate or prosecute any alcohol or drug abuse patient.[facility] HospitalIn the event this information is protected by the Federal Confidentiality of Alcohol and Drug Abuse Patient Records regulations: The Federal rules restrict any use of the information to criminally investigate or prosecute any alcohol or drug abuse patient.[facility] HospitalIn the event this information is protected by the Federal Confidentiality of Alcohol and Drug Abuse Patient Records regulations: The Federal rules restrict any use of the information to criminally investigate or prosecute any alcohol or drug abuse patient.[facility] HospitalIn the event this information is protected by the Federal Confidentiality of Alcohol and Drug Abuse Patient Records regulations: The Federal rules restrict any use of the information to criminally investigate or prosecute any alcohol or drug abuse patient.[facility] HospitalIn the event this information is protected by the Federal Confidentiality of Alcohol and Drug Abuse Patient Records regulations: The Federal rules restrict any use of the information to criminally investigate or prosecute any alcohol or drug abuse patient.[facility] HospitalIn the event this information is protected by the Federal Confidentiality of Alcohol and Drug Abuse Patient Records regulations: The Federal rules restrict any use of the information to criminally investigate or prosecute any alcohol or drug abuse patient.[facility] HospitalIn the event this information is protected by the Federal Confidentiality of Alcohol and Drug Abuse Patient Records regulations: The Federal rules restrict any use of the information to criminally investigate or prosecute any alcohol or drug abuse patient.[facility] HospitalIn the event this information is protected by the Federal Confidentiality of Alcohol and Drug Abuse Patient Records regulations: The Federal rules restrict any use of the information to criminally investigate or prosecute any alcohol or drug abuse patient.[facility] Patient Care team informatio n (unrecognized section and content) Team Status: Active Member Role Status Dates Kayy Madrid MD Primary Care Provider Active Team Status: Active Member Role Status Dates Kayy Madrid MD Primary Care Provider Active Start: August 16, 2024 Mar Stanton DOAttending ProviderActiveStart: August 16, 2024 Team Status: Inactive Member Role Status Dates Kayy Madrid MD Primary Care Provider Active Start: October 26, 2024 End: October 26, 2024Mar Stanton DOAttdenzel ProviderActiveStart: October 26, 2024 End: October 26, 2024Team MemberRelationshipSpecialtyStart DateEnd Date Kayy Madrid MD [address] [place] [address] PCP - GeneralFamily Medicine09/24/23Team MemberRelationshipSpecialtyStart DateEnd Date Kayy Madrid MD [address] [place] [address] [facility]09/24/23 Team Status: Inactive Member Role Status Rosy Madrid MD Primary Care Provider Active Start: July 19, 2024 End: July 19Zelda Gr ProviderActiveStart: July 19, 2024 End: July 19, 2024 Team Status: Inactive Member Role Status Rosy Madrid MD Primary Care Provider Active Start: July 21, 2024 End: July 21Zelda Gr ProviderActiveStart: July 21, 2024 End: July 21, 2024Team MemberRelationshipSpecialtyStart DateEnd Date Kayy Madrid MD PCP - [facility]09/24/23 Goals (unrecognized section and content) Goals may [...] BE BASED ON THE PRIMARY CLINICAL RECORDS. [facility] [employer] [facility] provides no warranty or guarantee of the accuracy or completeness of information in this document.
[2025-01-12 09:26] LABS: Alanine Aminotransferase 29 U/L (14-59); Anion Gap 11.7; Aspartate Amino Transferase 17 U/L (15-37); Blood Urea Nitrogen 19.0 mg/dL (7.0-18.0); Calcium 8.6 mg/dL (8.5-10.1); Carbon Dioxide 29.4 mmol/L (21.0-32.0); Chloride 105 mmol/L (98-107); Cholesterol 219 mg/dL (<=200); Estimated GFR (African America >60 (>=60 mL/min/1.73m^2); Estimated GFR (Non-African Ame >60 (>=60 mL/min/1.73m^2); Glucose 101 mg/dL (74-106); HDL Cholesterol 68 mg/dL (40-60); Potassium 4.1 mmol/L (3.5-5.1); Sodium 142 mmol/L (136-145); Triglycerides 91 mg/dL (<=150); VLDL CHOLESTEROL 18.2 mg/dL
== END 2025-01-12 08:34 | disposition home or self-care (01) ==
LOC: LAB 08:36
PROVIDERS: PCP Family Medicine; Visit Provider Internal Medicine Cardiovascular Disease
DX: I11.9 Hypertensive heart disease without heart failure (principal); E78.2 Mixed hyperlipidemia
CPT/HCPCS: 36415; 80048; 80061; 84450; 84460